=== PATIENT | female | born 1975 | race Two or more races ===

== ENCOUNTER 2020-07-05 02:40 | Emergency (ER) | payer OTHER, SELFPAY ==
[2020-07-05 02:55] VITALS: BP 143/92; PULSE 110; RESP 16; TEMP 36.6; O2SAT 99; BMI 46.9
--- NOTE | 2020-07-05 03:38 | ED.ABDPAIN ---
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 this morning and the pain is sharp and radiates towards the front with associated urinary frequency but she denies any associated fevers, chills, nausea, vomiting, diarrhea. Her LMP was 07/02. Related Data Allergies Allergy/AdvReac Type Severity Reaction Status Date / Time aspirin Allergy Mild SWELLING Verified 07/05/20 04:11 aspirin Allergy Unknown swelling Uncoded 12/17/19 00:00 cherries Allergy Unknown itching Uncoded 12/17/19 00:00 Review of Systems Review of Systems Pertinent positives and negatives as stated in HPI and 10 point review systems is otherwise negative. Physical Exam Vital Signs: Vital Signs: Vital Signs Temp Pulse Resp BP Pulse Ox 07/05/20 02:55 97.8 F 110 H 16 143/92 H 99 Body Mass Index 46.9 VITAL SIGNS: Reviewed. GENERAL: Well developed, well nourished, in moderate distress and is rocking back and forth in discomfort. HEAD: Normocephalic/atraumatic, EYES: PERRLA, EOMI intact without pain, no nystagmus/pallor/icterus noted EARS: Ext canals without abnormality, TMs non-bulging and non-erythematous NOSE: Nares patent bilateral OROPHARYNX: no oral lesions noted, posterior pharynx clear and non-erythematous without noted tonsillar enlargement/erythema/exudates NECK: Supple, no adenopathy LUNGS: Normal breath sounds. No adventitious sounds or accessory muscle use. SpO2<99> CARDIOVASCULAR: Regular rate and rhythm without noted murmurs, no JVD or lower extremity edema. ABDOMEN: Soft, non-tender, non-distended with bowel sounds. No rigidity. No guarding. No palpable masses or hernias noted MUSCULOSKELETAL: No tenderness, deformities, or effusions noted on gross inspection. EXTREMITIES: No cyanosis, clubbing or edema. SKIN: Inspection of the skin reveals no rashes, ulcerations, jaundice, pallor, or petechiae. NEUROLOGIC: Alert and oriented x 4. Strength and sensation to light touch were grossly intact x 4. Course Course Course Narrative: this is a 44-year-old female with history and clinical presentation suggestive of possible renal colic, UTI and less likely ectopic or pyelonephritis or diverticulitis. Will obtain labs, urinalysis, urine and provide combination analgesics for pain control. On review of all investigations there is no evidence of acute infection or anemia and although there is noted transaminemia on the chemistries this is felt be due in part to fatty liver and the presence of nonobstructing renal calculi as demonstrated on CT scan. Urine test is negative. MDM - Abdominal Pain Lab Data Result diagrams: 07/05/20 04:08 07/05/20 04:08 Labs: Lab Results 07/05/20 07/05/20 07/05/20 Range/Units 04:08 04:08 04:08 WBC 10.1 (4.8-10.8) X10*3/uL RBC 5.16 (4.20-5.50) X10*6/uL Hgb 15.3 (12.0-16.0) g/dl Hct 46.6 (37-47) % MCV 90.3 (80-98) fL MCH 29.7 (27.0-33.0) pg MCHC 32.8 (31.0-35.0) g/dl RDW 12.7 (11.0-16.0) % Plt Count 295 (160-400) X10*3/uL MPV 9.6 (9.4-12.3) fL Immature Gran % (Auto) 0.5 H (0.0-0.4) % Neut % (Auto) 66.0 (45-73) % Lymph % (Auto) 24.7 (20-40) % Reynolds % (Auto) 7.2 (2-11) % Eos % (Auto) 1.2 (0-4) % Baso % (Auto) 0.4 (0-2) % Lymph # (Auto) 2.5 (1.2-4.9) X10*3/uL Reynolds # (Auto) 0.7 (0.1-1.2) X10*3/uL Eos # (Auto) 0.1 (0.0-0.4) X10*3/uL Baso # (Auto) 0.0 (0.0-0.2) X10*3/uL Abs Immat Gran (auto) 0.05 H (0.00-0.03) X10*3/uL Absolute Neuts (auto) 6.7 (2.0-8.3) X10*3/uL Absolute Nucleated RBC 0.000 (0.0-0.012) X10*3/uL Nucleated RBC % (auto) 0.0 (0.0-0.2) /100WBC Sodium 141 (135-145) mmol/L Potassium 4.3 (3.3-5.1) mmol/l Chloride 105 (96-108) mmol/L Carbon Dioxide 25 (22-29) mmol/L Anion Gap 15 (12-20) BUN 13 (9-16) mg/dL Creatinine 0.87 (0.5-1.4) mg/dL Estim Creat Clear Calc 105.7 Estimated GFR > 60 Random Glucose 120 H (60-115) mg/dL Calcium 9.0 (8.4-10.2) mg/dL Total Bilirubin 0.4 (0.0-1.0) mg/dL AST 45 H (5-31) U/L ALT 75 H (0-31) U/L Alkaline Phosphatase 118 H (39-117) U/L Total Protein 7.2 (6.5-8.0) g/dL Albumin 3.9 (3.5-5.0) g/dL Urine Color YELLOW Urine Appearance HAZY Urine pH 6.0 (5.0-8.0) Ur Specific [place] 1.025 (1.005-1.025) Urine Protein NEG (NEG-TRACE) MG/DL Urine Glucose (UA) NEG (NEG) MG/DL Urine Ketones NEG (NEG) MG/DL Urine Blood 2+ H (NEG) Urine Nitrite NEG (NEG) Ur Leukocyte Esterase NEG (NEG) Urine RBC 5-9 H (0) /HPF Urine WBC 1-4 (0-4) /HPF Ur Squamous Epith Cells 1+ /LPF Urine Bacteria 1+ /LPF Urine Mucus 2+ /LPF Urine Test NEGATIVE (NEGATIVE) Discharge Plan Discharge Clinical Impression: Renal colic Patient Disposition: Home, Self-Care Instructions: Renal Colic (ED) Additional Instructions: 1. Aumente la hidrataci?n oral con agua y evite las bebidas carbonatadas y con cafe?na. 2. Tylenol 1000 mg, por v?a oral, cada 6 horas seg?n sea necesario para controlar el dolor. No exceda los 4000 mg en 24 horas. Si esto no ayuda con clay dolor cuando se repite, regrese al departamento de emergencias para dary evaluaci?n adicional. 3. Valentino un seguimiento con clay proveedor de atenci?n primaria el lunes. El paciente y / o la daniel reconocen shelley comprendido los resultados (seg?n corresponda), el diagn?stico, el plan de tratamiento, la necesidad de seguimiento y los s?ntomas que deber?an impulsar el regreso a la stephanie de emergencias. Referrals: Milly Chambers MD [Primary Care Provider] - 2 days (Further evaluation management for bilateral non-obstructing renal calculi) Print Language: Chinese [facility] Past Medical History Source: nursing notes reviewed Medical History Ectopic Kidney stone Social History Social History Advance Directives: No Advance Directives Information Provided: Yes
[2020-07-05] MEDS: diphenhydrAMINE HCL 50 MG/ML VIAL 25 MG IVPUSH (04:19)
[2020-07-05] MEDS: 0.9 % Sodium Chloride 1,000 ML 1000 ML IV (04:19)
[2020-07-05] MEDS: Acetaminophen 325 MG TABLET 975 MG PO (04:19)
[2020-07-05 04:20] LABS: Basophils Percent Auto 0.4 % (0-2); Eosinophils Absolute Auto 0.1 X10*3/uL (0.0-0.4); Eosinophils Percent Auto 1.2 % (0-4); Hematocrit 46.6 % (37-47); Hemoglobin 15.3 g/dl (12.0-16.0); Imm Gran Abs Auto 0.05 X10*3/uL (0.00-0.03); Imm Gran Pct Auto 0.5 % (0.0-0.4); Lymphocytes Absolute Auto 2.5 X10*3/uL (1.2-4.9); Lymphocytes Percent Auto 24.7 % (20-40); MANUAL DIFF FLAG NO; Mean Corpuscular HGB Conc 32.8 g/dl (31.0-35.0); Mean Corpuscular Hemoglobin 29.7 pg (27.0-33.0); Mean Corpuscular Volume 90.3 fL (80-98); Mean Platelet Volume 9.6 fL (9.4-12.3); Monocytes Absolute Auto 0.7 X10*3/uL (0.1-1.2); Monocytes Percent Auto 7.2 % (2-11); Neutrophils Absolute Auto 6.7 X10*3/uL (2.0-8.3); Platelet Count 295 X10*3/uL (160-400); Red Blood Count 5.16 X10*6/uL (4.20-5.50); Red Cell Distribution Width 12.7 % (11.0-16.0); White Blood Count 10.1 X10*3/uL (4.8-10.8)
[2020-07-05 04:21] LABS: Glucose Urine UA NEG (NEG); Leukocyte Esterase Urine NEG (NEG); Nitrite Urine NEG (NEG); Specific Gravity - Urine 1.025 (1.005-1.025); Urine Blood 2+ (NEG); Urine Ketones NEG (NEG); Urine Protein NEG (NEG-TRACE)
[2020-07-05 04:23] LABS: Appearance Urine HAZY; Color Urine YELLOW
[2020-07-05 04:26] LABS: UPreg QC Valid YES; Urine Pregnancy NEGATIVE (NEGATIVE)
[2020-07-05 04:31] LABS: Bacteria Urine 1+ /LPF; Mucus Urine 2+ /LPF; Squamous Epithelial Cell Urine 1+ /LPF
--- NOTE | 2020-07-05 04:31 | CT_ITS ---
EXAMINATION: CT ABDOMEN AND PELVIS WITHOUT CONTRAST CLINICAL INFORMATION: Left flank pain COMPARISON: 05/27/2020 TECHNIQUE: Multidetector volumetric imaging was performed from the superior aspect of the liver through the pubic symphysis. Sagittal and coronal reformatted images were obtained on the technologist's workstation. This CT examination was performed using dose optimization techniques as appropriate, variously including the following: *Automated exposure control *Adjustment of mA and/or kV according to patient size (this includes techniques or standardized protocols for targeted exams where dose is matched to indication/reason for exam; i.e. extremities or head) *Use of iterative reconstruction technique DLP: 1136 mGy-cm FINDINGS: LUNG BASES: The visualized lung bases are unremarkable. LIVER, GALLBLADDER, AND BILIARY TREE: The liver is normal in size, shape, and attenuation. No focal hepatic lesion or biliary ductal dilatation is present. Cholecystectomy. PANCREAS: Unremarkable. SPLEEN: Unremarkable. ADRENAL GLANDS: Unremarkable. KIDNEYS AND URETERS: The kidneys are normal in size, shape, and attenuation. There is no hydronephrosis or hydroureter. Bilateral tiny renal calculi are present. On the left there are at least 4 calculi measuring up to 0.2 cm, 15 cm from the posterior axillary line. On the right there are 2 lower pole 0.2 cm calculi 16 cm from the posterior axillary line. BLADDER: Unremarkable. GASTROINTESTINAL TRACT: Lap band in place. The stomach is otherwise unremarkable. Normal caliber small bowel. No obstruction. Normal appendix. No colonic wall thickening or inflammatory change. No free air or free fluid. ABDOMINAL WALL: No significant hernia is appreciated. LYMPH NODES: Normal. VASCULAR: Unremarkable. PELVIC VISCERA: Anteverted uterus. There is abnormal high attenuation in the region of the cervix and lower uterine segment expanding the endometrium. There is fluid filling the remainder of the endometrial canal measuring up to 1.7 cm. The fluid expansion of the endometrial canal is unchanged from prior, although the abnormality in the region of the cervix is now better visualized. There is a left adnexal follicle/cyst measuring 3 cm. This is similar to prior. OSSEOUS STRUCTURES: No acute or suspicious osseous abnormality. CT/CT abdomen pelvis wo con IMPRESSION: 1. Abnormal high attenuation in the uterus at the level of the cervix and lower uterine segment is nonspecific. This could represent blood products, although endocervical mass cannot be excluded. Persistent expansion of fluid within the endometrial canal. This can be further evaluated with pelvic ultrasound. 2. Multiple nonobstructing small bilateral renal calculi.
[2020-07-05 04:50] LABS: Alanine Aminotransferase 75 U/L (0-31); Albumin Level 3.9 g/dL (3.5-5.0); Alkaline Phosphatase 118 U/L (39-117); Anion Gap 15 (12-20); Aspartate Amino Transferase 45 U/L (5-31); Bilirubin Total 0.4 mg/dL (0.0-1.0); Blood Urea Nitrogen 13 mg/dL (9-16); Carbon Dioxide 25 mmol/L (22-29); Chloride 105 mmol/L (96-108); Creatinine Clr Calc Pharmacy 105.7; Estimated Glomerular Filt Rate > 60; Glucose Random 120 mg/dL (60-115); Potassium 4.3 mmol/l (3.3-5.1); Sodium 141 mmol/L (135-145); Total Protein 7.2 g/dL (6.5-8.0)
[2020-07-05 06:17] VITALS: BP 111/68; PULSE 88; RESP 18; TEMP 36.7; O2SAT 98
== END 2020-07-05 06:36 | disposition home or self-care (01) ==
PROVIDERS: Emergency Provider Student in an Organized Health Care Education/Training Program; PCP Internal Medicine
DX: N23 Unspecified renal colic (principal)
CPT/HCPCS: 36415; 74176; 80053; 81001; 81025; 85025; 96361; 96374; 99284; J1200

== ENCOUNTER 2020-07-13 10:50 | Outpatient (REF) | payer OTHER, SELFPAY ==
[2020-07-13 13:26] LABS: Estimated Average Glucose 120 mg/dL; Hemoglobin A1c % 5.8 %
[2020-07-14 23:11] LABS: DHEA Sulfate 84 mcg/dL (19-231)
[2020-07-15 04:32] LABS: Follicle Stimulating Hormone 10.5 mIU/mL; Lutenizing Hormone 4.2 mIU/mL; Prolactin 6.3 ng/mL
[2020-07-20 19:09] LABS: Testosterone, Free 2.8 pg/mL (0.1-6.4); Testosterone, Total 18 ng/dL (2-45)
== END 2020-07-13 10:51 | disposition home or self-care (01) ==
LOC: HO.LAB 10:50
PROVIDERS: PCP Internal Medicine; Visit Provider Advanced Practice Midwife
DX: Z01.419 Encounter for gynecological examination (general) (routine) without abnormal findings (principal); N93.9 Abnormal uterine and vaginal bleeding, unspecified
CPT/HCPCS: 82627; 83001; 83002; 83036; 83498; 84146; 84402; 84403; 84443

== ENCOUNTER 2020-07-24 07:18 | Outpatient (REF) | payer OTHER, SELFPAY | END 2020-07-24 07:19 | disposition home or self-care (01) | LOC: HO.LAB 07:18 | PROVIDERS: Visit Provider Internal Medicine | DX: Z20.828 Contact with and (suspected) exposure to other viral communicable diseases (principal) | CPT/HCPCS: C9803; U0003 ==

== ENCOUNTER 2020-07-27 10:51 | Outpatient (REF) | payer OTHER, SELFPAY ==
--- NOTE | 2020-07-27 10:53 | US_ITS ---
EXAMINATION: PELVIC ULTRASOUND CLINICAL INFORMATION: Abnormal uterine bleeding. The right ovary has been removed. COMPARISON: Previous CT of the abdomen and pelvis 07/05/2020 pelvic ultrasounds most recent September 2016 TECHNIQUE: Transabdominal and transvaginal pelvic ultrasound was performed. Transvaginal exam was performed for better visualization of the uterus and left ovary. FINDINGS: The uterus is anteverted and retroflexed and measures 8.5 x 6 x 6.1 cm in dimension. Uterine echotexture is heterogeneous. A focal uterine lesion is not appreciated. The endometrium is thickened measuring 1.9 cm. The endometrium is hyperechoic and homogeneous appearing. There are nabothian cysts in the cervix. The right ovary is surgically absent. The left ovary is normal-appearing and measures 3.4 x 2.5 x 2.3 cm, volume 10.2 mL. No adnexal mass is seen. There is no fluid in the pelvis. US/US pelvic complete IMPRESSION: Abnormally thickened endometrium measuring 1.9 cm. Normal-appearing left ovary. Surgically absent right ovary.
--- NOTE | 2020-07-27 10:53 | US_ITS ---
EXAMINATION: PELVIC ULTRASOUND CLINICAL INFORMATION: Abnormal uterine bleeding. The right ovary has been removed. COMPARISON: Previous CT of the abdomen and pelvis 07/05/2020 pelvic ultrasounds most recent September 2016 TECHNIQUE: Transabdominal and transvaginal pelvic ultrasound was performed. Transvaginal exam was performed for better visualization of the uterus and left ovary. FINDINGS: The uterus is anteverted and retroflexed and measures 8.5 x 6 x 6.1 cm in dimension. Uterine echotexture is heterogeneous. A focal uterine lesion is not appreciated. The endometrium is thickened measuring 1.9 cm. The endometrium is hyperechoic and homogeneous appearing. There are nabothian cysts in the cervix. The right ovary is surgically absent. The left ovary is normal-appearing and measures 3.4 x 2.5 x 2.3 cm, volume 10.2 mL. No adnexal mass is seen. There is no fluid in the pelvis. US/US transvaginal IMPRESSION: Abnormally thickened endometrium measuring 1.9 cm. Normal-appearing left ovary. Surgically absent right ovary.
== END 2020-07-27 10:52 | disposition home or self-care (01) ==
LOC: HO.US 10:51
PROVIDERS: Visit Provider Advanced Practice Midwife
DX: N93.9 Abnormal uterine and vaginal bleeding, unspecified (principal)
CPT/HCPCS: 76830; 76856

== ENCOUNTER → 2020-08-03 11:00 | Outpatient (BNVA) | payer OTHER, SELFPAY | PROVIDERS: PCP Internal Medicine; Visit Provider Advanced Practice Midwife | DX: Z76.89 Persons encountering health services in other specified circumstances (principal) ==

== ENCOUNTER 2020-08-14 09:42 | Outpatient (REF) | payer OTHER, SELFPAY | END 2020-08-14 09:43 | disposition home or self-care (01) | LOC: HO.LAB 09:42 | PROVIDERS: Visit Provider Internal Medicine | DX: Z20.828 Contact with and (suspected) exposure to other viral communicable diseases (principal) | CPT/HCPCS: C9803; U0003 ==

== ENCOUNTER → 2020-08-17 10:01 | Outpatient (BNVA) | payer OTHER, SELFPAY | PROVIDERS: Visit Provider Advanced Practice Midwife | DX: Z76.89 Persons encountering health services in other specified circumstances (principal) ==

== ENCOUNTER → 2020-08-18 11:10 | Outpatient (BNVA) | payer OTHER, SELFPAY | PROVIDERS: PCP Internal Medicine; Visit Provider Urology | DX: N39.0 Urinary tract infection, site not specified (principal); A49.9 Bacterial infection, unspecified | CPT/HCPCS: 81002; 99212 ==

== ENCOUNTER 2020-08-25 11:02 | Outpatient (REF) | payer OTHER, SELFPAY ==
--- NOTE | 2020-08-25 11:05 | MM_ITS ---
EXAMINATION: MM SCREENING DIGITAL BREAST TOMOSYNTHESIS, BILATERAL CLINICAL INFORMATION: Screening. Asymptomatic. The lifetime risk of breast cancer based on the Tyrer-Cuzick Model is 10%. COMPARISON: Mammography: 06/27/2019, 01/25/2018 TECHNIQUE: Digital breast tomosynthesis is performed in both the craniocaudal and mediolateral oblique views along with computer-aided detection (CAD). Synthesized 2D images are generated from the tomosynthesis. FINDINGS: There are scattered areas of fibroglandular density (ACR BI-RADS breast composition Category b). Breast tissue composition borders on predominantly fatty. There are no significant changes from prior exams. There are no significant masses, abnormal calcifications, or other abnormalities. MM/MM tomosynthesis screening BI IMPRESSION: No mammographic evidence of malignancy. ASSESSMENT: BI-RADS 1: Negative RECOMMENDATION: Routine annual mammography screening. This patient's information was entered into a reminder system with a target due date for their next mammogram.
== END 2020-08-25 11:03 | disposition home or self-care (01) ==
LOC: HO.MAMMO 11:02
PROVIDERS: Visit Provider Internal Medicine
DX: Z12.31 Encounter for screening mammogram for malignant neoplasm of breast (principal)
CPT/HCPCS: 77063; 77067

== ENCOUNTER 2020-08-25 12:20 | Outpatient (REF) | payer OTHER, SELFPAY | END 2020-08-25 12:21 | disposition home or self-care (01) | LOC: HO.LAB 12:20 | PROVIDERS: PCP Internal Medicine; Visit Provider Internal Medicine | DX: Z20.828 Contact with and (suspected) exposure to other viral communicable diseases (principal) | CPT/HCPCS: C9803; U0003 ==

== ENCOUNTER 2020-08-31 11:35 | Emergency (ER) | payer OTHER, SELFPAY ==
[2020-08-31 12:17] VITALS: BP 111/76; PULSE 89; RESP 16; TEMP 36.9; O2SAT 98; BMI 52.4
--- NOTE | 2020-08-31 12:35 | ED.FEMALEGU ---
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 The patient tells me that for the last 4 months she has had irregular and prolonged vaginal bleeding. Prior to this she had normal menses. She has had bleeding since August 13. She is using about 2 pads per day. She has no associated pain. Occasionally she has blood clots noted. She spoke to her OBGYN and has an appointment 09 02 for an endometrial biopsy and evaluation. She tells me she had this additionally August 18 but however due to the heavy bleeding they rescheduled it till later. No dizziness, weakness. No nausea or vomiting. No abdominal pain. Of note, patient had an ultrasound on July 27 which showed an abnormally thickened endometrium. MD elicited complaint: vaginal bleeding Onset (ago): week(s) Severity: mild Female Urogenital Radiation: Non-Radiating Vaginal discharge: none Vaginal bleeding: moderate, dark red and clots Exacerbating factors: none Relieving factors: none Associated symptoms: denies other symptoms Treatment prior to arrival: none Related Data Home Medications Medication Instructions Recorded Confirmed ibuprofen 600 mg tablet mg PO 08/18/20 mirtazapine 15 mg tablet 15 mg PO BEDTIME 08/18/20 omeprazole 20 mg capsule,delayed 20 mg PO DAILY 08/18/20 release trazodone 50 mg tablet 50 mg PO BEDTIME 08/18/20 Previous Rx's Medication Instructions Recorded ciprofloxacin HCl 500 mg tablet 500 mg PO BID 3 Days #6 tab 08/18/20 pyridoxine (vitamin B6) 100 mg 100 mg PO DAILY #90 tab 08/20/20 tablet Allergies Allergy/AdvReac Type Severity Reaction Status Date / Time aspirin Allergy Mild SWELLING Verified 08/10/20 12:05 aspirin Allergy Unknown swelling Uncoded 08/10/20 12:05 cherries Allergy Unknown itching Uncoded 08/10/20 12:05 Review of Systems Review of Systems: Yes all other systems are reviewed and are negative Constitutional: Constitutional: Reports no additional constitutional complaints, Denies body ache(s), Denies chills, Denies fever(s), Denies headache(s) and Denies weakness Eyes: Eyes: Reports no additional eye complaints and Denies change in vision ENT: Reports system reviewed and no additional complaints, except as documented, Denies dizziness, Denies headache(s), Denies nasal congestion, Denies nasal discharge and Denies neck pain Cardiovascular: Cardiovascular: Reports no additional cardiovascular complaints, Denies chest pain, Denies leg edema and Denies dyspnea Respiratory: Respiratory: Reports no additional respiratory complaints, Denies cough and Denies dyspnea Gastrointestinal: Gastrointestinal: Reports no additional gastrointestinal complaints, Denies abdominal pain, Denies diarrhea, Denies nausea and Denies vomiting Genitourinary: Genitourinary: Reports no additional female genitourinary complaints, Reports abnormal vaginal bleeding, Denies hematuria, Denies dysuria, Denies pelvic pain, Denies flank pain, Denies urinary incontinence and Denies vaginal discharge Musculoskeletal: Musculoskeletal: Reports no additional musculoskeletal complaints, Denies back pain, Denies arthralgias, Denies joint swelling, Denies neck pain, Denies numbness and Denies tingling Integumentary/Breasts: Skin/Breast: Reports system reviewed and no additional complaints, except as docu and Denies rash Neurologic: Reports system reviewed and no additional complaints, except as documented, Denies Abnormal speech present, Denies dizziness, Denies headache(s), Denies numbness, Denies tingling and Denies weakness PMFSH Past Medical History Attestation statement: The following information was validated with the patient. Source: nursing notes reviewed Medical History Abnormal uterine bleeding (AUB) Ectopic Insomnia Kidney stone Pure hypercholesterolemia Thickened endometrium Surgical History Hx of section Hx of cholecystectomy Hx of laparoscopic gastric banding Family History Family History Mother Osteoporosis Glaucoma Migraine Ovarian cancer Uterine cancer Sister Uterine cancer Maternal Grandfather Diabetes mellitus Paternal Grandmother Diabetes mellitus HTN (hypertension) Maternal Uncle Throat cancer Colon cancer Social History Social History Alcohol intake: never Smoking Status: Former smoker Use of substances other than those prescribed or required for medical reasons: No Advance Directives: No Advance Directives Information Provided: Yes Gender identity: female Physical Exam Vital Signs: Vital Signs: Last Vital Signs Temp 98.5 F 08/31/20 12:17 Pulse 89 08/31/20 12:17 Resp 16 08/31/20 12:17 BP 111/76 08/31/20 12:17 Pulse Ox 98 08/31/20 12:17 Body Mass Index 52.4 Const: General: cooperative, healthy appearing, comfortable and no acute distress Orientation/consciousness: patient oriented x3 Limitations: no limitations HENMT: Head: Yes normal to inspection Ears: hearing grossly normal bilaterally General nose exam: Normal external nose present Face and sinus: Yes normal facial exam Mouth: Normal oral and palatal mucosa present Throat: Yes posterior oropharynx normal Eyes: General: appearance normal, both eyes and all related structures Pupils: Equal, round and reactive pupils present Neck: Neck: Yes normal visual inspection Chest: Chest palpation & inspection: normal inspection of the chest Resp: Effort & Inspection: normal respiratory effort Auscultation: clear to auscultation bilaterally Cardio: Rate: regular rate Rhythm: regular rhythm Peripheral pulses: Peripheral pulses 2+ throughout GI: Inspection: Yes normal to inspection Palpation (GI): Soft to palpation and nontender Auscultation: normal bowel sounds : 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 Female Exam: normal external appearance Speculum Exam - Vagina: vaginal bleeding (small, NO clots) Speculum Exam - Cervix: normal appearance of the cervix Bimanual exam- vagina & uterus: normal bimanual exam Bimanual Exam- Adnexa, other: normal adnexae OB/external & speculum: vaginal bleeding (small, NO clots) Back/Spine/Pelvis: Thoracic/Lumbar Spine: thoracic and lumbar spine normal to inspection Skin: General skin exam: no rashes or lesions noted Neuro: General: patient oriented x3, no focal motor deficits and normal sensation to monofilament Cranial nerves: Yes Equal, round and reactive pupils present Cognition (Neuro): normal cognition Speech: No Abnormal speech present Gait exam (Neuro): Normal gait present Motor exam (neuro): 5/5 motor strength present throughout Extrem: General: Yes normal to inspection Course Course Course Narrative: 44-year-old female here with vaginal bleeding for the last 3 weeks. Patient has been seen by her OBGYN and has an upcoming appointment for repeat evaluation this Monday with an endometrial biopsy. Patient also she came today because she noticed the last few days she has had some clots but no increase in bleeding. Otherwise she feels well. Wall check labs, UA and urine , perform pelvic exam. 1405-Labs show stable hemoglobin, negative UA/. Pelvic exam shows small amounts of bleeding with no clots. Patient did not require a new pad while in the ED for >2 hrs. Can f/u with scheduled appointment in 2 days for OB evaluation and biopsy. Reviewed worrisome signs and symptoms and when to return to the emergency department. Comfortable discharge home. MDM - Female Genitourinary Medical Records Attestation: I reviewed the patient's medical records. Lab Data Attestation: I reviewed the patient's lab results. Result diagrams: 08/31/20 12:45 08/31/20 12:45 Labs: Lab Results 08/31/20 08/31/20 08/31/20 Range/Units 12:43 12:45 12:45 WBC 7.7 (4.8-10.8) X10*3/uL RBC 4.91 (4.20-5.50) X10*6/uL Hgb 14.6 (12.0-16.0) g/dl Hct 44.5 (37-47) % MCV 90.6 (80-98) fL MCH 29.7 (27.0-33.0) pg MCHC 32.8 (31.0-35.0) g/dl RDW 12.7 (11.0-16.0) % Plt Count 257 (160-400) X10*3/uL MPV 9.7 (9.4-12.3) fL Immature Gran % (Auto) 0.8 H (0.0-0.4) % Neut % (Auto) 59.5 (45-73) % Lymph % (Auto) 29.8 (20-40) % [place] % (Auto) 7.0 (2-11) % Eos % (Auto) 2.5 (0-4) % Baso % (Auto) 0.4 (0-2) % Lymph # (Auto) 2.3 (1.2-4.9) X10*3/uL [place] # (Auto) 0.5 (0.1-1.2) X10*3/uL Eos # (Auto) 0.2 (0.0-0.4) X10*3/uL Baso # (Auto) 0.0 (0.0-0.2) X10*3/uL Abs Immat Gran (auto) 0.06 H (0.00-0.03) X10*3/uL Absolute Neuts (auto) 4.6 (2.0-8.3) X10*3/uL Absolute Nucleated RBC 0.000 (0.0-0.012) X10*3/uL Nucleated RBC % (auto) 0.0 (0.0-0.2) /100WBC Sodium 137 (135-145) mmol/L Potassium 4.5 (3.3-5.1) mmol/l Chloride 106 (96-108) mmol/L Carbon Dioxide 24 (22-29) mmol/L Anion Gap 12 (12-20) BUN 10 (9-16) mg/dL Creatinine 0.79 (0.5-1.4) mg/dL Estim Creat Clear Calc 120.1 Estimated GFR > 60 Random Glucose 91 (60-115) mg/dL Calcium 8.8 (8.4-10.2) mg/dL Urine Color YELLOW Urine Appearance CLEAR Urine pH 5.5 (5.0-8.0) Ur Specific [place] >= 1.030 H (1.005-1.025) Urine Protein NEG (NEG-TRACE) MG/DL Urine Glucose (UA) NEG (NEG) MG/DL Urine Ketones NEG (NEG) MG/DL Urine Blood 3+ H (NEG) Urine Nitrite NEG (NEG) Ur Leukocyte Esterase NEG (NEG) Urine RBC 10-14 H (0) /HPF Urine WBC 0-2 (0-4) /HPF Ur Squamous Epith Cells 2+ /LPF Urine Bacteria TRACE /LPF Urine Mucus 1+ /LPF Urine Test NEGATIVE (NEGATIVE) Discharge Plan Discharge Clinical Impression: Abnormal uterine bleeding (AUB) Patient Disposition: Home, Self-Care Instructions: Menorrhagia (ED) Additional Instructions: Keep your appointment on Monday Return for heavy bleeding(using more than 1 pad in 1 hour) Prescriptions: No Action pyridoxine (vitamin B6) 100 mg tablet 100 mg PO DAILY Qty: 90 RF: 1 mirtazapine 15 mg tablet 15 mg PO BEDTIME RF: 0 trazodone 50 mg tablet 50 mg PO BEDTIME RF: 0 omeprazole 20 mg capsule,delayed release(DR/EC) 20 mg PO DAILY RF: 0 ibuprofen 600 mg tablet PO RF: 0 ciprofloxacin HCl 500 mg tablet 500 mg PO BID 3 Days Qty: 6 RF: 0 Referrals: Shabana Cabello MD [Physician] - 2 days Milly Chambers MD [Primary Care Provider] - 2 days Interventions: ED Discharge Assessment Last Done: 08/31/20 15:27 Discharge Date/Time: 08/31/20 15:27 Print Language: Macedonian
[2020-08-31 12:56] LABS: Basophils Percent Auto 0.4 % (0-2); Eosinophils Absolute Auto 0.2 X10*3/uL (0.0-0.4); Eosinophils Percent Auto 2.5 % (0-4); Hematocrit 44.5 % (37-47); Hemoglobin 14.6 g/dl (12.0-16.0); Imm Gran Abs Auto 0.06 X10*3/uL (0.00-0.03); Imm Gran Pct Auto 0.8 % (0.0-0.4); Lymphocytes Absolute Auto 2.3 X10*3/uL (1.2-4.9); Lymphocytes Percent Auto 29.8 % (20-40); MANUAL DIFF FLAG NO; Mean Corpuscular HGB Conc 32.8 g/dl (31.0-35.0); Mean Corpuscular Hemoglobin 29.7 pg (27.0-33.0); Mean Corpuscular Volume 90.6 fL (80-98); Mean Platelet Volume 9.7 fL (9.4-12.3); Monocytes Absolute Auto 0.5 X10*3/uL (0.1-1.2); Neutrophils Absolute Auto 4.6 X10*3/uL (2.0-8.3); Neutrophils Percent Auto 59.5 % (45-73); Platelet Count 257 X10*3/uL (160-400); Red Blood Count 4.91 X10*6/uL (4.20-5.50); Red Cell Distribution Width 12.7 % (11.0-16.0); White Blood Count 7.7 X10*3/uL (4.8-10.8)
[2020-08-31 12:58] LABS: Glucose Urine UA NEG (NEG); Leukocyte Esterase Urine NEG (NEG); Nitrite Urine NEG (NEG); PH 5.5 (5.0-8.0); Specific Gravity - Urine >= 1.030 (1.005-1.025); Urine Blood 3+ (NEG); Urine Ketones NEG (NEG); Urine Protein NEG (NEG-TRACE)
[2020-08-31 13:16] LABS: Appearance Urine CLEAR; Color Urine YELLOW
[2020-08-31 13:17] LABS: Urine Pregnancy NEGATIVE (NEGATIVE)
[2020-08-31 13:18] LABS: UPreg QC Valid YES
[2020-08-31 13:22] LABS: Bacteria Urine TRACE /LPF; Mucus Urine 1+ /LPF; Squamous Epithelial Cell Urine 2+ /LPF; WBC Urine 0-2 /HPF (0-4)
[2020-08-31 13:23] LABS: Anion Gap 12 (12-20); Blood Urea Nitrogen 10 mg/dL (9-16); Calcium 8.8 mg/dL (8.4-10.2); Carbon Dioxide 24 mmol/L (22-29); Chloride 106 mmol/L (96-108); Creatinine Clr Calc Pharmacy 120.1; Estimated Glomerular Filt Rate > 60; Glucose Random 91 mg/dL (60-115); Potassium 4.5 mmol/l (3.3-5.1); Sodium 137 mmol/L (135-145)
== END 2020-08-31 15:27 | disposition home or self-care (01) ==
PROVIDERS: Nurse Practitioner Family; Emergency Provider Emergency Medicine Emergency Medical Services; PCP Internal Medicine
DX: N93.8 Other specified abnormal uterine and vaginal bleeding (principal); Z87.891 Personal history of nicotine dependence; Z80.49 Family history of malignant neoplasm of other genital organs; Z79.899 Other long term (current) drug therapy
CPT/HCPCS: 36415; 80048; 81001; 81003; 81025; 85025; 99283; 99284

== ENCOUNTER 2020-09-02 13:17 | Outpatient (REF) | payer OTHER, SELFPAY ==
[2020-09-03 10:17] LABS: BV Int Neg Control Negative (Negative); BV Int Pos Control Positive (Positive)
[2020-09-05 08:47] LABS: C. trachomatis RNA TMA NOT DETECTED (NOT DETECTED); N. gonorrhoeae RNA TMA NOT DETECTED (NOT DETECTED)
[2020-09-05 10:18] LABS: HPV mRNA E6/E7 rflx Not Detected (Not Detected)
== END 2020-09-02 13:18 | disposition home or self-care (01) ==
LOC: HO.LAB 13:17
PROVIDERS: PCP Internal Medicine; Visit Provider Advanced Practice Midwife
DX: Z12.4 Encounter for screening for malignant neoplasm of cervix (principal); N93.9 Abnormal uterine and vaginal bleeding, unspecified; N39.0 Urinary tract infection, site not specified; A49.9 Bacterial infection, unspecified
CPT/HCPCS: 58100; 81025; 87086; 87480; 87491; 87510; 87591; 87624; 87660; 88142; 88305

== ENCOUNTER → 2020-09-14 15:24 | Outpatient (BNVA) | payer OTHER, SELFPAY | PROVIDERS: PCP Internal Medicine; Visit Provider Advanced Practice Midwife | DX: Z76.89 Persons encountering health services in other specified circumstances (principal) ==

== ENCOUNTER 2020-09-22 13:59 | Outpatient (REF) | payer OTHER, SELFPAY ==
[2020-09-24 05:32] LABS: C. trachomatis RNA TMA NOT DETECTED (NOT DETECTED); N. gonorrhoeae RNA TMA NOT DETECTED (NOT DETECTED)
== END 2020-09-22 14:00 | disposition home or self-care (01) ==
LOC: HO.LAB 13:59
PROVIDERS: PCP Internal Medicine; Visit Provider Obstetrics & Gynecology
DX: Z30.430 Encounter for insertion of intrauterine contraceptive device (principal); R31.9 Hematuria, unspecified; R93.89 Abnormal findings on diagnostic imaging of other specified body structures
CPT/HCPCS: 36415; 58300; 87491; 87591

== ENCOUNTER 2020-09-24 15:59 | Outpatient (REF) | payer OTHER, SELFPAY ==
[2020-09-24 18:26] LABS: MANUAL DIFF FLAG NO
[2020-09-24 18:32] LABS: Basophils Percent Auto 0.4 % (0-2); Eosinophils Absolute Auto 0.1 X10*3/uL (0.0-0.4); Eosinophils Percent Auto 1.5 % (0-4); Hematocrit 38.7 % (37-47); Hemoglobin 12.7 g/dl (12.0-16.0); Imm Gran Abs Auto 0.05 X10*3/uL (0.00-0.03); Imm Gran Pct Auto 0.5 % (0.0-0.4); Lymphocytes Absolute Auto 2.2 X10*3/uL (1.2-4.9); Lymphocytes Percent Auto 23.5 % (20-40); Mean Corpuscular HGB Conc 32.8 g/dl (31.0-35.0); Mean Corpuscular Volume 91.5 fL (80-98); Mean Platelet Volume 10.4 fL (9.4-12.3); Monocytes Absolute Auto 0.6 X10*3/uL (0.1-1.2); Monocytes Percent Auto 6.8 % (2-11); Neutrophils Absolute Auto 6.3 X10*3/uL (2.0-8.3); Neutrophils Percent Auto 67.3 % (45-73); Platelet Count 288 X10*3/uL (160-400); Red Blood Count 4.23 X10*6/uL (4.20-5.50); White Blood Count 9.3 X10*3/uL (4.8-10.8)
[2020-09-24 19:04] LABS: Iron 67 mcg/dL (30-160); Percent Iron Saturation 21 % (15-50); Total Iron Binding Capacity 318 mcg/dL (228-428); Unsaturated Iron Binding 251 ug/dL
[2020-09-26 13:26] LABS: C. trachomatis RNA TMA NOT DETECTED (NOT DETECTED); N. gonorrhoeae RNA TMA NOT DETECTED (NOT DETECTED)
== END 2020-09-24 16:00 | disposition home or self-care (01) ==
LOC: HO.LAB 15:59
PROVIDERS: PCP Internal Medicine; Visit Provider Internal Medicine
DX: N93.9 Abnormal uterine and vaginal bleeding, unspecified (principal); Z11.3 Encounter for screening for infections with a predominantly sexual mode of transmission
CPT/HCPCS: 36415; 83540; 85025; 87491; 87591

== ENCOUNTER → 2020-10-02 10:21 | Outpatient (BNVA) | payer OTHER, SELFPAY | PROVIDERS: PCP Internal Medicine; Visit Provider Urology | DX: R31.9 Hematuria, unspecified (principal) | CPT/HCPCS: 52000; 81002; 99212 ==

== ENCOUNTER → 2020-10-14 15:35 | Outpatient (BNVA) | payer OTHER, SELFPAY | PROVIDERS: Visit Provider Obstetrics & Gynecology ==

== ENCOUNTER 2020-11-24 09:36 | Outpatient (REF) | payer OTHER, SELFPAY ==
[2020-11-27 00:36] LABS: HPV mRNA E6/E7 rflx Not Detected (Not Detected)
== END 2020-11-24 09:37 | disposition home or self-care (01) ==
LOC: HO.LAB 09:36
PROVIDERS: Visit Provider Obstetrics & Gynecology
DX: R87.615 Unsatisfactory cytologic smear of cervix (principal); Z30.431 Encounter for routine checking of intrauterine contraceptive device; Z87.891 Personal history of nicotine dependence
CPT/HCPCS: 36415; 87624; 88142; 99212

== ENCOUNTER 2020-12-11 09:23 | Outpatient (REF) | payer OTHER, SELFPAY | END 2020-12-11 09:24 | disposition home or self-care (01) | LOC: HO.LAB 09:23 | PROVIDERS: Visit Provider Internal Medicine | DX: Z20.822 Contact with and (suspected) exposure to COVID-19 (principal) | CPT/HCPCS: C9803; U0003; U0005 ==

== ENCOUNTER 2020-12-20 19:02 | Emergency (ER) | payer OTHER, SELFPAY ==
[2020-12-20 19:28] VITALS: BP 131/90; PULSE 98; RESP 18; TEMP 36.3; O2SAT 95; BMI 50.5
--- NOTE | 2020-12-20 20:06 | ED.FEMALEGU ---
HPI - Female Genitourinary General Chief complaint: Urogenital-Female Stated complaint: side pain Time Seen by Provider: 12/20/20 19:57 Source: patient Mode of arrival: ambulatory Limitations: no limitations History of Present Illness HPI Narrative: 45-year-old female here with dysuria, foul odor to urine and right-sided back pain x2 days. No fevers, chills, nausea vomiting, vaginal discharge, diarrhea, constipation. Related Data Home Medications Medication Instructions Recorded Confirmed levonorgestrel 20 mcg/24 hours (6 0 device VAGINAL ONCE 10/02/20 yrs) 52 mg intrauterine device ibuprofen 400 mg tablet 400 mg PO Q8H 10/14/20 Previous Rx's Medication Instructions Recorded pyridoxine (vitamin B6) 100 mg 100 mg PO DAILY #90 tab 08/20/20 tablet tranexamic acid 650 mg tablet 1,300 mg PO TID #42 tab 10/14/20 ciprofloxacin HCl 500 mg PO BID #14 tab 12/20/20 phenazopyridine [Pyridium] 200 mg PO TID PRN #6 tab 12/20/20 Allergies Allergy/AdvReac Type Severity Reaction Status Date / Time aspirin Allergy Mild SWELLING Verified 11/24/20 10:05 cherries Allergy Unknown itching Uncoded 11/24/20 10:05 Review of Systems Review of Systems: Yes all other systems are reviewed and are negative Constitutional: Constitutional: Reports no additional constitutional complaints, Denies body ache(s), Denies chills, Denies fever(s), Denies headache(s) and Denies weakness Eyes: Eyes: Reports no additional eye complaints and Denies change in vision ENT: Reports system reviewed and no additional complaints, except as documented, Denies dizziness, Denies headache(s), Denies nasal congestion, Denies nasal discharge and Denies neck pain Cardiovascular: Cardiovascular: Reports no additional cardiovascular complaints, Denies chest pain, Denies leg edema and Denies dyspnea Respiratory: Respiratory: Reports no additional respiratory complaints, Denies cough and Denies dyspnea Gastrointestinal: Gastrointestinal: Reports no additional gastrointestinal complaints, Denies abdominal pain, Denies diarrhea, Denies nausea and Denies vomiting Genitourinary: Genitourinary: Reports no additional female genitourinary complaints, Denies urinary frequency, Denies difficulty voiding, Reports dysuria, Reports flank pain, Denies urinary incontinence, Denies urinary hesitancy, Denies urinary urgency and Denies vaginal discharge Comments: +foul odor to urine Musculoskeletal: Musculoskeletal: Reports no additional musculoskeletal complaints, Reports back pain, Denies arthralgias, Denies joint swelling, Denies neck pain, Denies numbness and Denies tingling Integumentary/Breasts: Skin/Breast: Reports system reviewed and no additional complaints, except as docu and Denies rash Neurologic: Reports system reviewed and no additional complaints, except as documented, Denies Abnormal speech present, Denies dizziness, Denies headache(s), Denies numbness, Denies tingling and Denies weakness [facility] Past Medical History Attestation statement: The following information was validated with the patient. Source: old records reviewed and nursing notes reviewed Medical History Abnormal uterine bleeding (AUB) Ectopic Hematuria Insomnia Kidney stone Pure hypercholesterolemia Thickened endometrium Surgical History Hx of section Hx of cholecystectomy Hx of laparoscopic gastric banding Family History Family History Mother Osteoporosis Glaucoma Migraine Ovarian cancer Uterine cancer Sister Uterine cancer Maternal Grandfather Diabetes mellitus Paternal Grandmother Diabetes mellitus HTN (hypertension) Maternal Uncle Throat cancer Colon cancer Social History Social History Alcohol intake: never Smoking Status: Former smoker Advance Directives: No Advance Directives Information Provided: No Gender identity: female Physical Exam Vital Signs: Vital Signs: Last Vital Signs Temp 97.4 F 12/20/20 19:28 Pulse 98 12/20/20 19:28 Resp 18 12/20/20 19:28 BP 131/90 H 12/20/20 19:28 Pulse Ox 95 12/20/20 19:28 Body Mass Index 50.5 Const: General: cooperative, healthy appearing, comfortable and no acute distress Orientation/consciousness: patient oriented x3 Limitations: no limitations HENMT: Head: Yes normal to inspection Ears: hearing grossly normal bilaterally General nose exam: Normal external nose present Face and sinus: Yes normal facial exam Mouth: Normal oral and palatal mucosa present Throat: Yes posterior oropharynx normal Eyes: General: appearance normal, both eyes and all related structures Pupils: Equal, round and reactive pupils present Neck: Neck: Yes normal visual inspection Chest: Chest palpation & inspection: normal inspection of the chest Resp: Effort & Inspection: normal respiratory effort Auscultation: clear to auscultation bilaterally Cardio: Rate: regular rate Rhythm: regular rhythm Peripheral pulses: Peripheral pulses 2+ throughout GI: Inspection: Yes normal to inspection Palpation (GI): Soft to palpation and nontender Auscultation: normal bowel sounds : General: Yes CVA tenderness (Mild right) Back/Spine/Pelvis: Back: CVA tenderness (Mild right) Thoracic/Lumbar Spine: thoracic and lumbar spine normal to inspection Skin: General skin exam: no rashes or lesions noted Neuro: General: patient oriented x3, no focal motor deficits and normal sensation to monofilament Cranial nerves: Yes Equal, round and reactive pupils present Cognition (Neuro): normal cognition Speech: No Abnormal speech present Gait exam (Neuro): Normal gait present Motor exam (neuro): 5/5 motor strength present throughout Extrem: General: Yes normal to inspection Course Course Course Narrative: 45-year-old female here with complaints of dysuria, foul odor to the urine and right flank pain x2 days. Mild CVA tenderness on the right side. No abdominal pain. Afebrile, well-appearing. Will need urine. 2049-UA consistent with UTI. There is some mild CVA tenderness on the right side and so could consider early pyelonephritis. No systemic signs or symptoms of infection such as reports of fevers or chills, tachycardia or fever. Will treat with course of antibiotics, Pyridium p.r.n. reviewed worrisome signs and symptoms and when to return to the emergency department. Comfortable discharge home. MDM - Female Genitourinary MDM Narrative Medical decision making narrative: Pyelonephritis, renal colic, UTI Medical Records Attestation: I reviewed the patient's medical records. Lab Data Attestation: I reviewed the patient's lab results. Labs: Lab Results 12/20/20 12/20/20 Range/Units 19:39 19:39 Urine Color YELLOW Urine Appearance CLEAR Urine pH 6.0 (5.0-8.0) Ur Specific [place] 1.025 (1.005-1.025) Urine Protein NEG (NEG-TRACE) MG/DL Urine Glucose (UA) NEG (NEG) MG/DL Urine Ketones 5 (NEG) MG/DL Urine Blood NEG (NEG) Urine Nitrite NEG (NEG) Ur Leukocyte Esterase TRACE H (NEG) Urine RBC 1-4 (0) /HPF Urine WBC 15-29 H (0-4) /HPF Ur Squamous Epith Cells 2+ /LPF Urine Bacteria 2+ /LPF Urine Test NEGATIVE (NEGATIVE) Discharge Plan Discharge Clinical Impression: UTI (urinary tract infection), bacterial, Pyelonephritis Patient Disposition: Home, Self-Care Instructions: Kidney Infection (ED) Additional Instructions: Increase fluids, rest Prescriptions: New ciprofloxacin HCl 500 mg tablet 500 mg PO BID Qty: 14 RF: 0 phenazopyridine [Pyridium] 200 mg tablet 200 mg PO TID PRN (Reason: pain) Qty: 6 RF: 0 No Action pyridoxine (vitamin B6) 100 mg tablet 100 mg PO DAILY Qty: 90 RF: 1 Mirena 20 mcg/24 hours (6 yrs) 52 mg intrauterine device 0 device vaginal ONCE RF: 0 ibuprofen 400 mg tablet 400 mg PO Q8H RF: 0 tranexamic acid 650 mg tablet 1,300 mg PO TID Qty: 42 RF: 0 Referrals: Milly Chambers MD [Primary Care Provider] - 2 days Print Language: Mexican
[2020-12-20 20:26] LABS: Glucose Urine UA NEG (NEG); Leukocyte Esterase Urine TRACE (NEG); Nitrite Urine NEG (NEG); Specific Gravity - Urine 1.025 (1.005-1.025); UACC Culture Trigger YES; Urine Blood NEG (NEG); Urine Ketones 5 MG/DL (NEG); Urine Protein NEG (NEG-TRACE)
[2020-12-20 20:29] LABS: Appearance Urine CLEAR; Color Urine YELLOW
[2020-12-20 20:31] LABS: UPreg QC Valid YES; Urine Pregnancy NEGATIVE (NEGATIVE)
[2020-12-20 20:43] LABS: Bacteria Urine 2+ /LPF; Squamous Epithelial Cell Urine 2+ /LPF
== END 2020-12-20 21:08 | disposition home or self-care (01) ==
PROVIDERS: Emergency Provider Internal Medicine; PCP Internal Medicine
DX: N39.0 Urinary tract infection, site not specified (principal); N10 Acute pyelonephritis; B96.89 Other specified bacterial agents as the cause of diseases classified elsewhere; Z87.442 Personal history of urinary calculi
CPT/HCPCS: 81001; 81003; 81025; 87086; 87088; 87186; 99283; 99284

== ENCOUNTER 2020-12-29 04:51 | Emergency (ER) | payer OTHER, SELFPAY ==
--- NOTE | ~2020-12-29 | XR_ITS ---
EXAMINATION: XR CHEST CLINICAL INFORMATION: Chest pain COMPARISON: 11/14/2019 TECHNIQUE: 2 views of the chest were obtained. FINDINGS: Cardiac leads overlie the chest. The lungs are well expanded. There is no focal consolidation, edema, or effusion. No pneumothorax. The cardiomediastinal silhouette is within normal limits. No acute osseous abnormality. XR/XR chest 2V IMPRESSION: Clear lungs.
--- NOTE | 2020-12-29 04:56 | ECG_ITS ---
Test Reason : CHES WALL PAIN Blood Pressure : / mmHG Vent. Rate : 084 BPM Atrial Rate : 084 BPM P-R Int : 196 ms QRS Dur : 080 ms QT Int : 392 ms P-R-T Axes : 043 -27 048 degrees QTc Int : 463 ms Normal sinus rhythm Cannot rule out Anterior infarct , age undetermined Abnormal ECG When compared with ECG of 08-JAN-2020 10:46, No significant change was found Referred By: Mary Clayton Electronically Signed By:MALLORIE RIVERO MD
[2020-12-29 05:07] VITALS: BP 126/68; PULSE 65; RESP 16; TEMP 36.8; O2SAT 99; BMI 50.5
[2020-12-29] MEDS: Ketorolac Tromethamine 15 MG/ML VIAL IM (05:17)
[2020-12-29] MEDS: Acetaminophen 325 MG TABLET 975 MG PO (05:18)
[2020-12-29] MEDS: Magnesium Hydrox/Alum Hydrox 30 ML ORAL.SUSP PO (05:18)
[2020-12-29] MEDS: Lidocaine HCl Viscous 2 % 15 ML SOLUTION 10 ML MUCOUS MEM (05:18)
[2020-12-29 05:35] LABS: Basophils Percent Auto 0.3 % (0-2); Eosinophils Absolute Auto 0.2 X10*3/uL (0.0-0.4); Eosinophils Percent Auto 1.9 % (0-4); Hemoglobin 13.1 g/dl (12.0-16.0); Imm Gran Abs Auto 0.04 X10*3/uL (0.00-0.03); Imm Gran Pct Auto 0.3 % (0.0-0.4); Lymphocytes Absolute Auto 3.7 X10*3/uL (1.2-4.9); Lymphocytes Percent Auto 31.6 % (20-40); MANUAL DIFF FLAG NO; Mean Corpuscular HGB Conc 31.2 g/dl (31.0-35.0); Mean Corpuscular Hemoglobin 26.5 pg (27.0-33.0); Mean Platelet Volume 9.4 fL (9.4-12.3); Monocytes Absolute Auto 0.7 X10*3/uL (0.1-1.2); Monocytes Percent Auto 6.1 % (2-11); Neutrophils Percent Auto 59.8 % (45-73); Platelet Count 320 X10*3/uL (160-400); Red Blood Count 4.94 X10*6/uL (4.20-5.50); Red Cell Distribution Width 13.9 % (11.0-16.0); White Blood Count 11.7 X10*3/uL (4.8-10.8)
[2020-12-29 05:59] LABS: Alanine Aminotransferase 45 U/L (0-31); Albumin Level 3.6 g/dL (3.5-5.0); Alkaline Phosphatase 118 U/L (39-117); Anion Gap 13 (12-20); Aspartate Amino Transferase 24 U/L (5-31); Bilirubin Total 0.2 mg/dL (0.0-1.0); Blood Urea Nitrogen 8 mg/dL (9-16); Calcium 9.1 mg/dL (8.4-10.2); Carbon Dioxide 25 mmol/L (22-29); Chloride 107 mmol/L (96-108); Creatinine Clr Calc Pharmacy 102.4; Estimated Glomerular Filt Rate > 60; Glucose Random 134 mg/dL (60-115); Lipase 36 U/L (8-78); Potassium 4.3 mmol/L (3.3-5.1); Sodium 141 mmol/L (135-145); Total Protein 6.7 g/dL (6.5-8.0)
[2020-12-29 06:02] LABS: Troponin-I High Sensitivity < 3.5 ng/L (<3.5-17.0)
--- NOTE | 2020-12-29 06:04 | ED.CHESTPAIN ---
HPI - Chest Pain General Chief Complaint: Chest Pain Stated Complaint: CHEST PAIN Time Seen by Provider: 12/29/20 04:56 Source: patient Mode of arrival: ambulatory History of Present Illness HPI narrative: 45-year-old female who presents with 2-3 days sharp, burning chest pain that is nonradiating and is worse with deep inspiration and has not been associated with any fevers, chills, shortness of breath, nausea/vomiting, abdominal pain, or urinary symptoms. Related Data Home Medications Medication Instructions Recorded Confirmed levonorgestrel 20 mcg/24 hours (6 0 device VAGINAL ONCE 10/02/20 yrs) 52 mg intrauterine device ibuprofen 400 mg tablet 400 mg PO Q8H 10/14/20 Previous Rx's Medication Instructions Recorded pyridoxine (vitamin B6) 100 mg 100 mg PO DAILY #90 tab 08/20/20 tablet tranexamic acid 650 mg tablet 1,300 mg PO TID #42 tab 10/14/20 ciprofloxacin HCl 500 mg PO BID #14 tab 12/20/20 phenazopyridine [Pyridium] 200 mg PO TID PRN #6 tab 12/20/20 omeprazole 40 mg PO DAILY 30 Days #30 cap 12/29/20 Allergies Allergy/AdvReac Type Severity Reaction Status Date / Time aspirin Allergy Mild SWELLING Verified 11/24/20 10:05 cherries Allergy Unknown itching Uncoded 11/24/20 10:05 Review of Systems Review of Systems: Pertinent positives and negatives as stated in HPI and 10 point review of systems is otherwise negative. PMFSH Past Medical History Source: nursing notes reviewed Medical History Abnormal uterine bleeding (AUB) Ectopic Hematuria Insomnia Kidney stone Pure hypercholesterolemia Thickened endometrium Surgical History Hx of section Hx of cholecystectomy Hx of laparoscopic gastric banding Family History Family History Mother Osteoporosis Glaucoma Migraine Ovarian cancer Uterine cancer Sister Uterine cancer Maternal Grandfather Diabetes mellitus Paternal Grandmother Diabetes mellitus HTN (hypertension) Maternal Uncle Throat cancer Colon cancer Social History Social History Alcohol intake: never Smoking Status: Former smoker Advance Directives: No Gender identity: female Physical Exam Vital Signs: Vital Signs: Last Vital Signs Temp 98.2 F 12/29/20 05:07 Pulse 65 12/29/20 05:07 Resp 16 12/29/20 05:07 BP 126/68 12/29/20 05:07 Pulse Ox 99 12/29/20 05:07 Body Mass Index 50.5 VITAL SIGNS: Reviewed. GENERAL: Well developed, well nourished, in no acute distress. HEAD: Normocephalic/atraumatic EYES: PERRLA, EOMI OROPHARYNX: no oral lesions noted, posterior pharynx clear NECK: Supple, no adenopathy LUNGS: Normal breath sounds. No adventitious sounds or accessory muscle use. SpO2<99> CARDIOVASCULAR: Regular rate and rhythm without noted murmurs ABDOMEN: Soft, non-tender, non-distended with bowel sounds, no CVA tenderness. NEUROLOGIC: Alert and oriented x 4. Course Course Course Narrative: 45-year-old female with history and clinical presentation consistent costochondritis, acid reflux, and doubt cardiopulmonary etiologies. On review of all investigations are no acute findings and on re-evaluation patient has had good symptom relief after receiving combination analgesics as well as GI cocktail. She will be discharged in stable condition with presumptive acid reflux. MDM - Chest Pain Lab Data Result diagrams: 12/29/20 05:29 12/29/20 05:29 Labs: Lab Results 12/29/20 12/29/20 12/29/20 Range/Units 05:29 05:29 05:29 WBC 11.7 H (4.8-10.8) X10*3/uL RBC 4.94 (4.20-5.50) X10*6/uL Hgb 13.1 (12.0-16.0) g/dl Hct 42.0 (37-47) % MCV 85.0 (80-98) fL MCH 26.5 L (27.0-33.0) pg MCHC 31.2 (31.0-35.0) g/dl RDW 13.9 (11.0-16.0) % Plt Count 320 (160-400) X10*3/uL MPV 9.4 (9.4-12.3) fL Immature Gran % (Auto) 0.3 (0.0-0.4) % Neut % (Auto) 59.8 (45-73) % Lymph % (Auto) 31.6 (20-40) % [place] % (Auto) 6.1 (2-11) % Eos % (Auto) 1.9 (0-4) % Baso % (Auto) 0.3 (0-2) % Lymph # (Auto) 3.7 (1.2-4.9) X10*3/uL [place] # (Auto) 0.7 (0.1-1.2) X10*3/uL Eos # (Auto) 0.2 (0.0-0.4) X10*3/uL Baso # (Auto) 0.0 (0.0-0.2) X10*3/uL Abs Immat Gran (auto) 0.04 H (0.00-0.03) X10*3/uL Absolute Neuts (auto) 7.0 (2.0-8.3) X10*3/uL Absolute Nucleated RBC 0.000 (0.0-0.012) X10*3/uL Nucleated RBC % (auto) 0.0 (0.0-0.2) /100WBC Sodium 141 (135-145) mmol/L Potassium 4.3 (3.3-5.1) mmol/L Chloride 107 (96-108) mmol/L Carbon Dioxide 25 (22-29) mmol/L Anion Gap 13 (12-20) BUN 8 L (9-16) mg/dL Creatinine 0.93 (0.5-1.4) mg/dL Estim Creat Clear Calc 102.4 Estimated GFR > 60 Random Glucose 134 H D (60-115) mg/dL Calcium 9.1 (8.4-10.2) mg/dL Total Bilirubin 0.2 (0.0-1.0) mg/dL AST 24 D (5-31) U/L ALT 45 H (0-31) U/L Alkaline Phosphatase 118 H (39-117) U/L Troponin I High Sens < 3.5 (<3.5-17.0) ng/L Total Protein 6.7 (6.5-8.0) g/dL Albumin 3.6 (3.5-5.0) g/dL Lipase 36 (8-78) U/L ECG Data ECG #1: Attestation: I personally reviewed and interpreted this ECG as follows: Prior ECG tracings: available for review (01/08/2020 no acute changes on comparison) Interpretation: Normal sinus rhythm, HR-84, no evidence of acute ischemia, ME/QRS/QTC are within normal limits. Discharge Plan Discharge Clinical Impression: Acid reflux, Atypical chest pain Patient Disposition: Home, Self-Care Instructions: Diet for Stomach Ulcers and Gastritis (ED), Gastroesophageal Reflux Disease (ED) Additional Instructions: 1. Valentino un seguimiento con clay proveedor de atenci?n primaria llamando al consultorio hoy mismo para dary reevaluaci?n de clay o?do melissa. Regrese al departamento de emergencias por cualquier empeoramiento richard de claude s?ntomas. Prescriptions: New omeprazole 40 mg capsule,delayed release(DR/EC) 40 mg PO DAILY 30 Days Qty: 30 RF: 0 No Action pyridoxine (vitamin B6) 100 mg tablet 100 mg PO DAILY Qty: 90 RF: 1 ciprofloxacin HCl 500 mg tablet 500 mg PO BID Qty: 14 RF: 0 phenazopyridine [Pyridium] 200 mg tablet 200 mg PO TID PRN (Reason: pain) Qty: 6 RF: 0 Mirena 20 mcg/24 hours (6 yrs) 52 mg intrauterine device 0 device vaginal ONCE RF: 0 ibuprofen 400 mg tablet 400 mg PO Q8H RF: 0 tranexamic acid 650 mg tablet 1,300 mg PO TID Qty: 42 RF: 0 Referrals: Milly Chambers MD [Primary Care Provider] - 2 days (Re-evaluation for suspected acid reflux and started on omeprazole.) Print Language: Albanian
== END 2020-12-29 06:50 | disposition home or self-care (01) ==
PROVIDERS: Emergency Provider Student in an Organized Health Care Education/Training Program; PCP Internal Medicine
DX: R07.89 Other chest pain (principal); K21.9 Gastro-esophageal reflux disease without esophagitis
CPT/HCPCS: 36415; 71046; 80053; 83690; 84484; 85025; 93005; 96372; 99283; 99284; J1885

== ENCOUNTER 2021-01-04 12:41 | Outpatient (REF) | payer OTHER, SELFPAY ==
[2021-01-04 13:55] LABS: COVID-19 Test Negative (Negative); IDNOW Serial# 55D5AD1C
== END 2021-01-04 12:42 | disposition home or self-care (01) ==
LOC: HO.LAB 12:41
PROVIDERS: Visit Provider Internal Medicine
DX: Z20.822 Contact with and (suspected) exposure to COVID-19 (principal)
CPT/HCPCS: 36415; 87635; C9803

== ENCOUNTER → 2021-01-21 09:27 | Outpatient (BNVA) | payer OTHER, SELFPAY | PROVIDERS: Referring Provider Internal Medicine; Visit Provider Surgery | DX: E66.01 Morbid (severe) obesity due to excess calories (principal); Z68.43 Body mass index [BMI] 50.0-59.9, adult | CPT/HCPCS: 99202 ==

== ENCOUNTER 2021-01-25 14:06 | Outpatient (REF) | payer OTHER, SELFPAY ==
--- NOTE | ~2021-01-25 | XR_ITS ---
EXAMINATION: XR CHEST CLINICAL INFORMATION: Shortness of breath COMPARISON: Previous chest x-rays most recent December 2020 TECHNIQUE: 2 views of the chest were obtained. FINDINGS: Cardiac and mediastinal contours are normal. The lungs are clear. There is no pleural effusion or pneumothorax bony structures are normal. There are postsurgical changes from gastric lap band. XR/XR chest 2V IMPRESSION: No evidence for acute disease in the chest.
--- NOTE | 2021-01-25 14:14 | ECG_ITS ---
Test Reason : SOB Blood Pressure : / mmHG Vent. Rate : 076 BPM Atrial Rate : 076 BPM P-R Int : 182 ms QRS Dur : 086 ms QT Int : 404 ms P-R-T Axes : 051 -20 055 degrees QTc Int : 454 ms Normal sinus rhythm Normal ECG When compared with ECG of 29-DEC-2020 05:00, No significant change was found Referred By: Marie Ramos Electronically Signed By:CHEYANNE CHONG
[2021-01-25 14:52] LABS: MANUAL DIFF FLAG NO
[2021-01-25 15:01] LABS: Basophils Percent Auto 0.4 % (0-2); Eosinophils Absolute Auto 0.2 X10*3/uL (0.0-0.4); Eosinophils Percent Auto 1.9 % (0-4); Hematocrit 41.8 % (37-47); Hemoglobin 12.9 g/dl (12.0-16.0); Imm Gran Abs Auto 0.06 X10*3/uL (0.00-0.03); Imm Gran Pct Auto 0.6 % (0.0-0.4); Lymphocytes Absolute Auto 2.5 X10*3/uL (1.2-4.9); Lymphocytes Percent Auto 26.3 % (20-40); Mean Corpuscular HGB Conc 30.9 g/dl (31.0-35.0); Mean Corpuscular Hemoglobin 25.4 pg (27.0-33.0); Mean Corpuscular Volume 82.4 fL (80-98); Mean Platelet Volume 9.9 fL (9.4-12.3); Monocytes Absolute Auto 0.5 X10*3/uL (0.1-1.2); Monocytes Percent Auto 5.4 % (2-11); Neutrophils Absolute Auto 6.1 X10*3/uL (2.0-8.3); Neutrophils Percent Auto 65.4 % (45-73); Platelet Count 325 X10*3/uL (160-400); Red Blood Count 5.07 X10*6/uL (4.20-5.50); Red Cell Distribution Width 14.6 % (11.0-16.0); White Blood Count 9.4 X10*3/uL (4.8-10.8)
[2021-01-25 15:03] LABS: Estimated Average Glucose 137 mg/dL; Hemoglobin A1c % 6.4 %
[2021-01-25 15:19] LABS: Alanine Aminotransferase 35 U/L (0-31); Albumin Level 3.6 g/dL (3.5-5.0); Alkaline Phosphatase 119 U/L (39-117); Anion Gap 12 (12-20); Aspartate Amino Transferase 26 U/L (5-31); Bilirubin Total 0.5 mg/dL (0.0-1.0); Blood Urea Nitrogen 11 mg/dL (9-16); C Reactive Protein 0.91 mg/dL (< or = 0.50); Calcium 9.1 mg/dL (8.4-10.2); Carbon Dioxide 24 mmol/L (22-29); Chloride 108 mmol/L (96-108); Cholesterol 252 mg/dL; Estimated Glomerular Filt Rate > 60; Glucose Fasting 105 mg/dL (60-99); HDL Cholesterol 37 mg/dL; Iron 32 mcg/dL (30-160); LDL Cholesterol Calculated 186 mg/dl; Percent Iron Saturation 9 % (15-50); Sodium 140 mmol/L (135-145); Total Iron Binding Capacity 370 mcg/dL (228-428); Total Protein 6.9 g/dL (6.5-8.0); Triglycerides 149 mg/dL; Unsaturated Iron Binding 338 ug/dL
[2021-01-25 15:39] LABS: Thyroid Stimulating Hormone 1.02 uIU/mL (0.32-4.0); Vitamin D 25-OH Total 14.7 ng/mL (>30)
[2021-01-25 15:43] LABS: Vitamin B12 445 pg/mL (200-900)
[2021-01-27 13:32] LABS: Calcium (PTHI) 9.3 mg/dL (8.6-10.2); PTHI 109 pg/mL (14-64)
[2021-01-28 19:02] LABS: Vitamin B1 <6 nmol/L (8-30)
[2021-01-28 19:52] LABS: Zinc 58 mcg/dL (60-130)
[2021-01-30 00:56] LABS: Vitamin A 32 mcg/dL (38-98)
== END 2021-01-25 14:07 | disposition home or self-care (01) ==
LOC: HO.XRAY 14:06
PROVIDERS: PCP Internal Medicine; Visit Provider Surgery
DX: Z01.818 Encounter for other preprocedural examination (principal); R06.02 Shortness of breath; E55.9 Vitamin D deficiency, unspecified; K91.2 Postsurgical malabsorption, not elsewhere classified; Z90.3 Acquired absence of stomach [part of]
CPT/HCPCS: 36415; 71046; 80053; 80061; 82306; 82607; 83036; 83540; 83970; 84425; 84443; 84590; 84630; 85025; 86140; 93005

== ENCOUNTER 2021-02-03 06:07 | Day surgery (SDC) | payer OTHER, SELFPAY ==
[2021-01-27 13:03] VITALS: BMI 49.9
--- NOTE | 2021-02-02 09:43 | HO.ANESPROP2 ---
Documented by User: Cat Steph 02/02/21 09:44 HPI - Anesthesia Eval Consult details Narrative: 45yo F for Upper Endoscopy PMFSH Active Problems Active Problems: All Active Problems (Updated 01/26/21 @ 12:45 by Marie Ramos MD) Well woman exam with routine gynecological exam (Acute) Morbid obesity with BMI of 45.0-49.9, adult (Acute) Prediabetes (Acute) UTI (urinary tract infection), bacterial (Acute) Preoperative examination (Acute) Shortness of breath (Acute) BMI 50.0-59.9, adult (Acute) Morbid obesity due to excess calories (Acute) Vitamin D deficiency (Acute) GERD (gastroesophageal reflux disease) (Acute) Hematuria (Acute) Kidney stone (Acute) Abnormal uterine bleeding (AUB) (Acute) Thickened endometrium (Acute) Past Medical History Medical History Abnormal uterine bleeding (AUB) Dyslipidemia Ectopic GERD (gastroesophageal reflux disease) Hematuria Insomnia Kidney stone Pure hypercholesterolemia Thiamine deficiency Thickened endometrium Family History Family History Mother Osteoporosis Glaucoma Migraine Ovarian cancer Uterine cancer Sister Uterine cancer Maternal Grandfather Diabetes mellitus Paternal Grandmother Diabetes mellitus HTN (hypertension) Maternal Uncle Throat cancer Colon cancer Father No problems noted. Sister No problems noted. Sister No problems noted. Brother No problems noted. Son No problems noted. Surgical History Surgical History H/O laparoscopy H/O: hysterectomy Hx of section Hx of cholecystectomy Hx of laparoscopic gastric banding Hx of lithotripsy Social History Social History Alcohol intake: former Patient Tobacco Use Status: Never used Tobacco Second Hand Smoke Exposure: Yes Are you DNR?: No Advance Directives: No Advance Directives Information Provided: No Advance Directives on File: No Gender identity: female Meds Allergies Allergy/AdvReac Type Severity Reaction Status Date / Time aspirin Allergy Intermediate SWELLING Verified 02/02/21 11:05 raspberry Allergy Intermediate Itching Verified 02/02/21 11:05 cherries Allergy Intermediate itching Uncoded 02/02/21 11:05 Home Medications Medication Instructions Recorded Confirmed Last Taken Type levonorgestrel 20 mcg/24 hours (6 0 device VAGINAL ONCE 10/02/20 02/02/21 Unknown History yrs) 52 mg intrauterine device ibuprofen 400 mg tablet 400 mg PO Q8H PRN 01/21/21 02/02/21 Unknown History mirtazapine 1 tab PO BEDTIME 01/27/21 02/02/21 Unknown History Exam Exam Date and Time: February 02, 2021 0943 Height,Weight and Vital Signs: Height 5 ft 3 in Weight 127.913 kg Narrative Narrative: EKG 01/2021 Vent. Rate : 076 BPM Atrial Rate : 076 BPM P-R Int : 182 ms QRS Dur : 086 ms QT Int : 404 ms P-R-T Axes : 051 -20 055 degrees QTc Int : 454 ms Normal sinus rhythm Normal ECG When compared with ECG of 29-DEC-2020 05:00, No significant change was found Assessment and Plan Assessment Anesthesia Assessment: Chart Reviewed Documented by User: Justine Palacios 02/03/21 07:29 [facility] Past Medical History Medical History Abnormal uterine bleeding (AUB) Dyslipidemia Ectopic GERD (gastroesophageal reflux disease) Hematuria Insomnia Kidney stone Pure hypercholesterolemia Thiamine deficiency Thickened endometrium Family History Family History Mother Osteoporosis Glaucoma Migraine Ovarian cancer Uterine cancer Sister Uterine cancer Maternal Grandfather Diabetes mellitus Paternal Grandmother Diabetes mellitus HTN (hypertension) Maternal Uncle Throat cancer Colon cancer Father No problems noted. Sister No problems noted. Sister No problems noted. Brother No problems noted. Son No problems noted. Family history of problems with anesthesia: No Surgical History Surgical History H/O laparoscopy H/O: hysterectomy Hx of section Hx of cholecystectomy Hx of laparoscopic gastric banding Hx of lithotripsy History of Problems with Anesthesia: No Social History Social History Alcohol intake: former Patient Tobacco Use Status: Never used Tobacco Second Hand Smoke Exposure: Yes Are you DNR?: No Advance Directives: No Advance Directives Information Provided: No Advance Directives on File: No Gender identity: female Meds Allergies Allergy/AdvReac Type Severity Reaction Status Date / Time aspirin Allergy Intermediate SWELLING Verified 02/02/21 11:05 raspberry Allergy Intermediate Itching Verified 02/02/21 11:05 cherries Allergy Intermediate itching Uncoded 02/02/21 11:05 Home Medications Medication Instructions Recorded Confirmed Last Taken Type levonorgestrel 20 mcg/24 hours (6 0 device VAGINAL ONCE 10/02/20 02/02/21 Unknown History yrs) 52 mg intrauterine device ibuprofen 400 mg tablet 400 mg PO Q8H PRN 01/21/21 02/02/21 Unknown History mirtazapine 1 tab PO BEDTIME 01/27/21 02/02/21 Unknown History Exam Height,Weight and Vital Signs: Vital Signs Temp Pulse Resp BP Pulse Ox 02/03/21 06:31 96.9 F 83 18 121/86 96 Pertinent Lab Results Pertinent Lab Results: Lab Results 02/03/21 Range/Units 06:17 COVID-19 (JABIER) Negative (Negative) COVID-19 Clin Com See Note Airway Mallampati Class: II TM Dist: >3cm Neck ROM: Full Heart: RRR Lungs: CTAB Assessment and Plan Assessment Anesthesia Assessment: Anesthesia Plan Discussed and Chart Reviewed Final Anesthetic Review NPO: Yes ASA Class: III Final Preanesthetic Review: No Changes in Pt Med Stat, Meds/Allgs Chart Reviewed, Consent Obtained/Reviewed and Anes Risks/Benef Reviewed Patient Risk: Intermediate Procedure Risk: Low Assessment/Block/Sedation in SS: Assess/Block/Sedation-SS Anesthetic Plan Anesthetic Plan: MAC: Disposition: Standard PACU
--- NOTE | 2021-02-02 16:03 | MHC.SHP ---
Pre-Procedural Eval Section B Chief Complaint: reflux disease Allergies: Allergies Allergy/AdvReac Type Severity Reaction Status Date / Time aspirin Allergy Intermediate SWELLING Verified 02/02/21 11:05 raspberry Allergy Intermediate Itching Verified 02/02/21 11:05 cherries Allergy Intermediate itching Uncoded 02/02/21 11:05 Plan I have reviewed the history and physical and performed a pertinent physical examination on my patient. No changes have occurred unless specified.
[2021-02-03 06:31] VITALS: BP 121/86; PULSE 83; RESP 18; TEMP 36.1; O2SAT 96
[2021-02-03] MEDS: Lactated Ringers 1,000 ML 100 ML IVCONT (06:42)
[2021-02-03 06:50] LABS: COVID-19 Test Negative (Negative)
[2021-02-03 08:06] VITALS: BP 100/56; PULSE 85; RESP 17; TEMP 36.6; O2SAT 97
--- NOTE | 2021-02-03 08:10 | P.BOP_ITS ---
Brief Operative Note Date of Service: 02/03/21 Pre-op diagnosis: Weight gain after gastric banding Post-op diagnosis: other (Hiatal hernia and antral gastritis) Procedure: Esophagogastroduodenoscopy, antral biopsy x2 Implants: None Surgeon: Marie Ramos MD Anesthesia: MAC Was an Falsework Builder used for this Procedure?: No Estimated blood loss (mL): 0 Pathology: other (Antral biopsy x2) Condition: stable Disposition: PACU
--- NOTE | 2021-02-03 08:20 | OP_ITS ---
SURGEON: Marie Ramos MD PREOPERATIVE DIAGNOSIS: POSTOPERATIVE DIAGNOSIS: PROCEDURE PERFORMED: ESTIMATED BLOOD LOSS: COMPLICATIONS: None. ANESTHESIA: Total intravenous anesthesia with propofol given by the nurse television specialist. ASSISTANTS: SPECIMENS: PREPROCEDURE DIAGNOSIS: Weight gain after gastric banding. POSTPROCEDURE DIAGNOSES: Small hiatal hernia, antral gastritis, normal gastric band. PROCEDURES PERFORMED: 1. Esophagogastroduodenoscopy. 2. Antral biopsy x2. COMPLICATIONS: None. CONDITION POSTPROCEDURE: Good. DESCRIPTION OF PROCEDURE: The patient was brought into the operating room on the stretcher and placed in the left lateral decubitus position. A safety time-out was performed. A bite block was placed between the teeth. Total intravenous anesthesia was administered using propofol by the nurse television specialist. Once the patient was adequately sedated, the gastroscope was placed into posterior oropharynx, passed down the esophagus, evaluating the esophageal mucosa which was normal. The GE junction was located at 38 cm from the incisors. There was a small hiatal hernia. Gastroscope was passed into the gastric pouch. There was no evidence of gastric band erosion or gastric band slippage. The gastric band was located at 40 cm from the incisors. The gastroscope was easily passed through the gastric band into the lower stomach. There was significant amount of bile within the stomach, which was suctioned out. The gastroscope was then retroflexed and again, there was no evidence of gastric band erosion or gastric band slippage or mucosal lesions. The gastroscope was straightened out and passed to the pre-pyloric region. There was antral gastritis with granularity and erythema, which was biopsied x2. The gastroscope was passed through the pylorus down to the 3rd portion of duodenum, all of which was normal. All of these portions of the upper endoscopy were documented using photo documentation. The gastroscope was retracted back into the stomach. Stomach was desufflated and the gastroscope was removed without difficulty. The patient tolerated the procedure well and was sent to recovery room in stable condition. Marie Ramos MD UM/MODL / [id number]
[2021-02-03 08:24] VITALS: BP 108/61; PULSE 92; RESP 16; TEMP 36.6; O2SAT 97
== END 2021-02-03 09:10 | disposition home or self-care (01) ==
PROVIDERS: PCP Internal Medicine; Visit Provider Surgery
PROC: 0DJ08ZZ Inspection of Upper Intestinal Tract, Via Natural or Artificial Opening Endoscopic (ICD-10-PCS; CPT 43235; principal; 2021-02-03 07:30)
DX: K21.9 Gastro-esophageal reflux disease without esophagitis (principal); K29.50 Unspecified chronic gastritis without bleeding; K44.9 Diaphragmatic hernia without obstruction or gangrene; E66.01 Morbid (severe) obesity due to excess calories; Z68.43 Body mass index [BMI] 50.0-59.9, adult; Z98.84 Bariatric surgery status; Z79.899 Other long term (current) drug therapy; Z88.8 Allergy status to other drugs, medicaments and biological substances; Z90.49 Acquired absence of other specified parts of digestive tract; Z20.822 Contact with and (suspected) exposure to COVID-19
CPT/HCPCS: 43239; 36415; 87635; 88305; 88342; J2250

== ENCOUNTER → 2021-02-04 08:13 | Outpatient (BNVA) | payer OTHER, SELFPAY | PROVIDERS: Visit Provider Surgery ==

== ENCOUNTER → 2021-02-15 08:08 | Outpatient (BNVA) | payer OTHER, SELFPAY | PROVIDERS: Visit Provider Dietitian, Registered | DX: E66.01 Morbid (severe) obesity due to excess calories (principal); Z68.42 Body mass index [BMI] 45.0-49.9, adult | CPT/HCPCS: 97802 ==

== ENCOUNTER → 2021-02-19 13:57 | Outpatient (BNVA) | payer OTHER, SELFPAY | PROVIDERS: Visit Provider Physician Assistant | DX: E66.01 Morbid (severe) obesity due to excess calories (principal); Z68.42 Body mass index [BMI] 45.0-49.9, adult | CPT/HCPCS: 99212 ==

== ENCOUNTER 2021-02-25 | Outpatient (REF) | payer OTHER, SELFPAY | END 2021-02-25 00:01 | disposition home or self-care (01) | LOC: HO.LNP | PROVIDERS: Visit Provider Hospitalist | DX: R30.0 Dysuria (principal) | CPT/HCPCS: 87086 ==

== ENCOUNTER 2021-03-12 14:20 | Outpatient (REF) | payer OTHER, SELFPAY ==
[2021-03-16 15:32] LABS: Zinc 64 mcg/dL (60-130)
[2021-03-17 14:56] LABS: Vitamin A 40 mcg/dL (38-98); Vitamin B1 8 nmol/L (8-30)
== END 2021-03-12 14:21 | disposition home or self-care (01) ==
LOC: HO.LAB 14:20
PROVIDERS: PCP Internal Medicine; Referring Provider Internal Medicine; Visit Provider Surgery
DX: Z01.818 Encounter for other preprocedural examination (principal); E51.9 Thiamine deficiency, unspecified; E60 Dietary zinc deficiency; E66.01 Morbid (severe) obesity due to excess calories; Z68.42 Body mass index [BMI] 45.0-49.9, adult; Z71.3 Dietary counseling and surveillance
CPT/HCPCS: 36415; 84425; 84590; 84630; 99212

== ENCOUNTER 2021-03-24 08:59 | Outpatient (REF) | payer OTHER, SELFPAY ==
[2021-03-24 11:40] LABS: Glucose Urine UA NEG (NEG); Leukocyte Esterase Urine NEG (NEG); Nitrite Urine NEG (NEG); Specific Gravity - Urine >= 1.030 (1.005-1.025); Urine Blood NEG (NEG); Urine Ketones NEG (NEG); Urine Protein NEG (NEG-TRACE)
[2021-03-24 11:50] LABS: Appearance Urine CLEAR; Color Urine YELLOW
[2021-03-24 11:54] LABS: Alanine Aminotransferase 33 U/L (0-31); Albumin Level 4.1 g/dL (3.5-5.0); Alkaline Phosphatase 117 U/L (39-117); Anion Gap 13 (12-20); Aspartate Amino Transferase 24 U/L (5-31); Bilirubin Total 0.5 mg/dL (0.0-1.0); Blood Urea Nitrogen 16 mg/dL (9-16); Calcium 9.8 mg/dL (8.4-10.2); Carbon Dioxide 25 mmol/L (22-29); Chloride 109 mmol/L (96-108); Cholesterol 216 mg/dL; Estimated Glomerular Filt Rate > 60; Glucose Fasting 106 mg/dL (60-99); HDL Cholesterol 32 mg/dL; LDL Cholesterol Calculated 161 mg/dl; Potassium 4.2 mmol/L (3.3-5.1); Sodium 143 mmol/L (135-145); Total Protein 7.5 g/dL (6.5-8.0); Triglycerides 119 mg/dL
[2021-03-24 12:14] LABS: Vitamin D 25-OH Total 32.2 ng/mL (>30)
== END 2021-03-24 09:00 | disposition home or self-care (01) ==
LOC: HO.LAB 08:59
PROVIDERS: Surgery; PCP Internal Medicine; Referring Provider Internal Medicine; Visit Provider Physician Assistant
DX: Z01.818 Encounter for other preprocedural examination (principal); E55.9 Vitamin D deficiency, unspecified; E78.5 Hyperlipidemia, unspecified; R30.0 Dysuria; K21.9 Gastro-esophageal reflux disease without esophagitis
CPT/HCPCS: 36415; 80053; 80061; 81003; 82306; 99202

== ENCOUNTER → 2021-03-30 13:28 | Outpatient (BNVA) | payer OTHER, SELFPAY | PROVIDERS: PCP Internal Medicine; Referring Provider Internal Medicine; Visit Provider Physician Assistant | DX: E66.01 Morbid (severe) obesity due to excess calories (principal); Z68.42 Body mass index [BMI] 45.0-49.9, adult | CPT/HCPCS: 99212 ==

== ENCOUNTER 2021-04-08 09:40 | Outpatient (REF) | payer OTHER, SELFPAY ==
[2021-04-09 14:26] LABS: H Pylori Breath Test NOT DETECTED (NOT DETECTED)
== END 2021-04-08 09:41 | disposition home or self-care (01) ==
LOC: HO.LNP 09:40
PROVIDERS: PCP Internal Medicine; Referring Provider Internal Medicine; Visit Provider Physician Assistant
DX: K21.9 Gastro-esophageal reflux disease without esophagitis (principal); Z11.3 Encounter for screening for infections with a predominantly sexual mode of transmission
CPT/HCPCS: 83013

== ENCOUNTER 2021-04-26 20:19 | Emergency (ER) | payer OTHER, SELFPAY ==
--- NOTE | ~2021-04-26 | CT_ITS ---
EXAMINATION: CT ABDOMEN AND PELVIS WITHOUT CONTRAST CLINICAL INFORMATION: Right flank pain with history of stone COMPARISON: None TECHNIQUE: Multidetector volumetric imaging was performed from the superior aspect of the liver through the pubic symphysis. Sagittal and coronal reformatted images were obtained on the technologist's workstation. This CT examination was performed using dose optimization techniques as appropriate, variously including the following: *Automated exposure control *Adjustment of mA and/or kV according to patient size (this includes techniques or standardized protocols for targeted exams where dose is matched to indication/reason for exam; i.e. extremities or head) *Use of iterative reconstruction technique DLP: 1051 mGy-cm FINDINGS: LUNG BASES: Some nonspecific groundglass changes are noted at the lung bases LIVER, GALLBLADDER, AND BILIARY TREE: The liver is normal in size, shape, and attenuation. No focal hepatic lesion or biliary ductal dilatation is present. Status post cholecystectomy. PANCREAS: Unremarkable. SPLEEN: Unremarkable. ADRENAL GLANDS: Unremarkable. KIDNEYS AND URETERS: Right kidney: Multiple intrarenal calculi are present with at least 3 small punctate calcifications in the upper pole a single in the mid pole and the largest in a lower pole calyx. The largest stone measures under 3 mm in size. There is mild to moderate pelvocaliectasis present on the right with dilatation of the ureter which is mild all the way down to the ureterovesical junction. No obstructing stone is seen. Perhaps there was passage of the stone recently. No renal masses are seen. Left kidney: At least 7 calculi are present in the left kidney nonobstructing, the largest is only 2 mm in a lower pole calyx. No pelvocaliectasis is seen on the left. No renal masses are detected. The left ureter is of normal caliber. BLADDER: Unremarkable. No bladder calculi seen. GASTROINTESTINAL TRACT: A lap band is present. The small and large bowel are unremarkable. The appendix is none seen but there is no evidence of appendicitis. ABDOMINAL WALL: No significant hernia is appreciated. LYMPH NODES: No retroperitoneal lymphadenopathy. VASCULAR: Unremarkable. PELVIC VISCERA: An anteverted uterus is present containing an IUD, new when compared to the prior CT, which is positioned low with a portion in the cervix. OSSEOUS STRUCTURES: Unremarkable. CT/CT abdomen pelvis wo con IMPRESSION: 1. Bilateral nonobstructing intrarenal calculi. 2. There is right-sided hydronephrosis and dilatation of the ureter. An obstructing stone is not seen. Perhaps patient recently passed a calculus. 3. Incidental note made of cholecystectomy, Lap Band and a low positioned IUD.
[2021-04-26 20:33] VITALS: BP 147/85; PULSE 127; RESP 20; TEMP 36.7; O2SAT 96; BMI 46.9
--- NOTE | 2021-04-26 20:43 | ED.ABDPAIN ---
HPI - Abdominal Pain General Chief Complaint: Abdominal Pain Stated Complaint: Flank pain Time Seen by Provider: 04/26/21 20:43 Source: patient Mode of arrival: EMS Limitations: no limitations History of Present Illness HPI narrative: Patient with history of nonobstructive kidney stone complaining of painful urination and frequency for last 3 days with suprapubic pain and noticed right flank pain since yesterday , Patient received 120 macro g of fentanyl EN route by EMS. No nausea no vomiting no fever no chills no hematuria patient moving her bowels normally patient does get urinary tract infection occasional Related Data Home Medications Medication Instructions Recorded Confirmed levonorgestrel 20 mcg/24 hours (6 0 device VAGINAL ONCE 10/02/20 03/24/21 yrs) 52 mg intrauterine device ibuprofen 400 mg tablet 400 mg PO Q8H PRN 01/21/21 03/24/21 mirtazapine 15 mg tablet 1 tab PO BEDTIME 01/27/21 03/24/21 Previous Rx's Medication Instructions Recorded omeprazole 40 mg capsule,delayed 40 mg PO DAILY 30 Days #30 cap 12/29/20 release atorvastatin 20 mg tablet 20 mg PO BEDTIME 90 Days #90 tab 02/02/21 zinc 50 mg tablet 50 mg PO BID 30 Days #60 tab 02/04/21 ciprofloxacin HCl 500 mg tablet 500 mg PO BID #20 tab 04/27/21 (Cipro) oxycodone 5 mg tablet 5 mg PO Q6H PRN #20 tab 04/27/21 phenazopyridine 200 mg tablet 200 mg PO TID PRN 2 Days #5 tab 04/27/21 (Pyridium) Allergies Allergy/AdvReac Type Severity Reaction Status Date / Time aspirin Allergy Intermediate SWELLING Verified 04/08/21 11:36 raspberry Allergy Intermediate Itching Verified 04/08/21 11:36 cherries Allergy Intermediate itching Uncoded 03/30/21 13:38 Review of Systems Review of Systems Yes all other systems are reviewed and are negative Physical Exam Vital Signs: Vital Signs: Last Vital Signs Temp 98.0 F 04/26/21 20:33 Pulse 90 04/26/21 23:46 Resp 16 04/26/21 23:53 BP 106/69 04/26/21 23:46 Pulse Ox 97 04/26/21 23:46 Body Mass Index 46.9 Appearance: Alert. Oriented X3. Obese complaining of pain in right flank area and moderate distress Eyes: No pallor or icterus ENT: Pharynx normal. Oral Mucosa moist Neck: Normal inspection. Neck supple. CVS: Normal heart rate and rhythm. Pulses normal. Respiratory: No respiratory distress. Equal air entry bilateral, no wheezing/rales/rhonchi Abdomen: Soft and nontender. Bowel sounds are present, no mass palpable, tender right CVA Skin: Skin warm and dry. Normal skin color. Normal skin turgor. Extremities: No lower extremity edema. No calf tenderness Neuro: Oriented X 3. MDM - Abdominal Pain MDM Narrative Medical decision making narrative: Patient with right flank pain with UTI CT scan negative for perinephric stranding, no obstructive stone no fever no vomiting IV Rocephin was given in the ER discharge patient home on Cipro Lab Data Result diagrams: 04/26/21 21:27 04/26/21 21:30 Labs: Lab Results 04/26/21 04/26/21 04/26/21 Range/Units 21:27 21:27 21:30 WBC 17.0 H (4.8-10.8) X10*3/uL RBC 5.22 (4.20-5.50) X10*6/uL Hgb 13.9 (12.0-16.0) g/dl Hct 44.1 (37-47) % MCV 84.5 (80-98) fL MCH 26.6 L (27.0-33.0) pg MCHC 31.5 (31.0-35.0) g/dl RDW 14.7 (11.0-16.0) % Plt Count 309 (160-400) X10*3/uL MPV 10.0 (9.4-12.3) fL Immature Gran % (Auto) 0.5 H (0.0-0.4) % Neut % (Auto) 72.6 (45-73) % Lymph % (Auto) 20.1 (20-40) % [place] % (Auto) 5.9 (2-11) % Eos % (Auto) 0.7 (0-4) % Baso % (Auto) 0.2 (0-2) % Lymph # (Auto) 3.4 (1.2-4.9) X10*3/uL [place] # (Auto) 1.0 (0.1-1.2) X10*3/uL Eos # (Auto) 0.1 (0.0-0.4) X10*3/uL Baso # (Auto) 0.0 (0.0-0.2) X10*3/uL Abs Immat Gran (auto) 0.08 H (0.00-0.03) X10*3/uL Absolute Neuts (auto) 12.3 H (2.0-8.3) X10*3/uL Absolute Nucleated RBC 0.000 (0.0-0.012) X10*3/uL Nucleated RBC % (auto) 0.0 (0.0-0.2) /100WBC Sodium 140 (135-145) mmol/L Potassium 4.3 (3.3-5.1) mmol/L Chloride 107 (96-108) mmol/L Carbon Dioxide 25 (22-29) mmol/L Anion Gap 12 (12-20) BUN 12 (9-16) mg/dL Creatinine 0.99 (0.5-1.4) mg/dL Estim Creat Clear Calc 92.0 Estimated GFR > 60 Random Glucose 110 (60-115) mg/dL Calcium 9.5 (8.4-10.2) mg/dL Total Bilirubin 0.5 (0.0-1.0) mg/dL Direct Bilirubin 0.2 (0.0-0.5) mg/dL AST 33 H (5-31) U/L ALT 41 H (0-31) U/L Alkaline Phosphatase 128 H (39-117) U/L Total Protein 7.5 (6.5-8.0) g/dL Albumin 4.0 (3.5-5.0) g/dL Lipase 31 (8-78) U/L Urine Color YELLOW Urine Appearance CLOUDY Urine pH 6.0 (5.0-8.0) Ur Specific [place] 1.010 (1.005-1.025) Urine Protein 1+ H (NEG-TRACE) MG/DL Urine Glucose (UA) NEG (NEG) MG/DL Urine Ketones NEG (NEG) MG/DL Urine Blood 3+ H (NEG) Urine Nitrite POS H (NEG) Ur Leukocyte Esterase 3+ H (NEG) Urine RBC 30-49 H (0) /HPF Urine WBC TNTC H (0-4) /HPF Urine WBC Clumps NOTED Ur Squamous Epith Cells 1+ /LPF Urine Bacteria 1+ /LPF Discharge Plan Discharge Clinical Impression: UTI (urinary tract infection), bacterial, Right flank pain Patient Disposition: Home, Self-Care Instructions: Urinary Tract Infection in Women (ED), Flank Pain (ED) Additional Instructions: Drink plenty of fluids take pain medication as advised Take antibiotic as prescribed Report to the ER if increased pain/vomiting/high-grade fever Prescriptions: New oxycodone 5 mg tablet 5 mg PO Q6H PRN (Reason: Pain (Scale Score 4-6)) Qty: 20 RF: 0 ciprofloxacin HCl [Cipro] 500 mg tablet 500 mg PO BID Qty: 20 RF: 0 phenazopyridine [Pyridium] 200 mg tablet 200 mg PO TID PRN (Reason: pain) 2 Days Qty: 5 RF: 0 No Action omeprazole 40 mg capsule,delayed release(DR/EC) 40 mg PO DAILY 30 Days Qty: 30 RF: 0 mirtazapine 15 mg tablet 1 tab PO BEDTIME RF: 0 atorvastatin 20 mg tablet 20 mg PO BEDTIME 90 Days Qty: 90 RF: 3 Mirena 20 mcg/24 hours (6 yrs) 52 mg intrauterine device 0 device vaginal ONCE RF: 0 zinc 50 mg tablet 50 mg PO BID 30 Days Qty: 60 RF: 0 ibuprofen 400 mg tablet 400 mg PO Q8H PRNRF: 0 Stand Alone Forms: Work/School Release Interventions: ED Discharge Assessment Last Done: 04/27/21 00:41 Discharge Date/Time: 04/27/21 00:41 [facility] Past Medical History Medical History Abnormal uterine bleeding (AUB) BMI 45.0-49.9, adult Dyslipidemia Ectopic GERD (gastroesophageal reflux disease) Hematuria Insomnia Kidney stone Pure hypercholesterolemia Thiamine deficiency Thickened endometrium Surgical History H/O laparoscopy H/O: hysterectomy Hx of section Hx of cholecystectomy Hx of laparoscopic gastric banding Hx of lithotripsy Family History Family History Mother Osteoporosis Glaucoma Migraine Ovarian cancer Uterine cancer Sister Uterine cancer Maternal Grandfather Diabetes mellitus Paternal Grandmother Diabetes mellitus HTN (hypertension) Maternal Uncle Throat cancer Colon cancer Father No problems noted. Sister No problems noted. Sister No problems noted. Brother No problems noted. Son No problems noted. Social History Social History Alcohol intake: former Patient Tobacco Use Status: Never used Tobacco Second Hand Smoke Exposure: Yes Advance Directives: No Advance Directives Information Provided: Yes Patient : No Gender identity: Female
[2021-04-26] MEDS: ondansetron HCL 4 MG/2 ML VIAL IVPUSH (21:01)
[2021-04-26 21:03] VITALS: RESP 20
[2021-04-26] MEDS: Morphine Sulfate 4 MG/ML CARTRIDGE IVPUSH (21:03)
[2021-04-26] MEDS: 0.9 % Sodium Chloride 1,000 ML 999 ML IVCONT ×2 (21:06→23:49)
[2021-04-26 21:35] LABS: MANUAL DIFF FLAG NO
[2021-04-26 21:36] LABS: Basophils Percent Auto 0.2 % (0-2); Eosinophils Absolute Auto 0.1 X10*3/uL (0.0-0.4); Eosinophils Percent Auto 0.7 % (0-4); Hematocrit 44.1 % (37-47); Hemoglobin 13.9 g/dl (12.0-16.0); Imm Gran Abs Auto 0.08 X10*3/uL (0.00-0.03); Imm Gran Pct Auto 0.5 % (0.0-0.4); Lymphocytes Absolute Auto 3.4 X10*3/uL (1.2-4.9); Lymphocytes Percent Auto 20.1 % (20-40); Mean Corpuscular HGB Conc 31.5 g/dl (31.0-35.0); Mean Corpuscular Hemoglobin 26.6 pg (27.0-33.0); Mean Corpuscular Volume 84.5 fL (80-98); Monocytes Percent Auto 5.9 % (2-11); Neutrophils Absolute Auto 12.3 X10*3/uL (2.0-8.3); Neutrophils Percent Auto 72.6 % (45-73); Platelet Count 309 X10*3/uL (160-400); Red Blood Count 5.22 X10*6/uL (4.20-5.50); Red Cell Distribution Width 14.7 % (11.0-16.0)
[2021-04-26 21:39] LABS: Glucose Urine UA NEG (NEG); Leukocyte Esterase Urine 3+ (NEG); Nitrite Urine POS (NEG); UACC Culture Trigger YES; Urine Blood 3+ (NEG); Urine Ketones NEG (NEG); Urine Protein 1+ MG/DL (NEG-TRACE)
[2021-04-26 22:01] LABS: Alanine Aminotransferase 41 U/L (0-31); Alkaline Phosphatase 128 U/L (39-117); Anion Gap 12 (12-20); Aspartate Amino Transferase 33 U/L (5-31); Bilirubin Direct 0.2 mg/dL (0.0-0.5); Bilirubin Total 0.5 mg/dL (0.0-1.0); Blood Urea Nitrogen 12 mg/dL (9-16); Calcium 9.5 mg/dL (8.4-10.2); Carbon Dioxide 25 mmol/L (22-29); Chloride 107 mmol/L (96-108); Estimated Glomerular Filt Rate > 60; Glucose Random 110 mg/dL (60-115); Lipase 31 U/L (8-78); Potassium 4.3 mmol/L (3.3-5.1); Sodium 140 mmol/L (135-145); Total Protein 7.5 g/dL (6.5-8.0)
[2021-04-26 22:01] LABS: Appearance Urine CLOUDY; Bacteria Urine 1+ /LPF; Color Urine YELLOW; RBC Urine 30-49 /HPF (0); Squamous Epithelial Cell Urine 1+ /LPF; WBC Clumps Urine NOTED; WBC Urine TNTC /HPF (0-4)
[2021-04-26 22:08] VITALS: RESP 16
[2021-04-26] MEDS: cefTRIAXone sodium 1 GM in 0.9 % Sodium Chloride 50 ML IV (22:26)
[2021-04-26] MEDS: oxyCODONE HCl Immed Release 5 MG TABLET 10 MG PO (22:51)
[2021-04-26 23:46] VITALS: BP 106/69; PULSE 90; RESP 16; O2SAT 97
[2021-04-26 23:49] VITALS: RESP 16
[2021-04-26] MEDS: HYDROmorphone HCl 1 MG/ML SYRINGE IVPUSH (23:49)
[2021-04-26 23:53] VITALS: RESP 16
[2021-04-27] MEDS: Phenazopyridine HCL 200 MG TABLET PO (00:35)
== END 2021-04-27 00:41 | disposition home or self-care (01) ==
PROVIDERS: Emergency Provider Internal Medicine; PCP Internal Medicine
DX: N39.0 Urinary tract infection, site not specified (principal); R10.9 Unspecified abdominal pain; E66.01 Morbid (severe) obesity due to excess calories; Z68.42 Body mass index [BMI] 45.0-49.9, adult
CPT/HCPCS: 36415; 74176; 80048; 80076; 81001; 81003; 83690; 85025; 87086; 87088; 87186; 96361; 96365; 96375; 99284; J0696; J1170; J2270; J2405

== ENCOUNTER → 2021-05-03 09:53 | Outpatient (BNVA) | payer OTHER, SELFPAY | PROVIDERS: PCP Internal Medicine ==

== ENCOUNTER → 2021-05-11 11:19 | Outpatient (BNVA) | payer OTHER, SELFPAY | PROVIDERS: PCP Internal Medicine; Visit Provider Surgery | DX: E66.01 Morbid (severe) obesity due to excess calories (principal); Z68.42 Body mass index [BMI] 45.0-49.9, adult | CPT/HCPCS: 99212 ==

== ENCOUNTER 2021-06-13 09:50 | Emergency (ER) | payer OTHER, SELFPAY ==
[2021-06-13 10:51] VITALS: BP 130/64; PULSE 84; RESP 16; TEMP 36.5; O2SAT 99; BMI 47.8
[2021-06-13 12:33] LABS: Appearance Urine CLEAR; Color Urine YELLOW; Glucose Urine UA NEG (NEG); Leukocyte Esterase Urine NEG (NEG); Nitrite Urine NEG (NEG); Specific Gravity - Urine 1.025 (1.005-1.025); Urine Blood NEG (NEG); Urine Ketones NEG (NEG); Urine Protein NEG (NEG-TRACE)
[2021-06-13 13:45] VITALS: BP 124/84; PULSE 78; RESP 16; TEMP 36.8; O2SAT 99
--- NOTE | 2021-06-13 14:16 | ED.FEMALEGU ---
HPI - Female Genitourinary General Chief complaint: Urogenital-Female Stated complaint: blood in urine Time Seen by Provider: 06/13/21 13:57 Source: patient Mode of arrival: ambulatory Limitations: no limitations History of Present Illness HPI Narrative: 45-year-old female who presents emergency department for evaluation of blood in your urine. Patient states she has been having a an itching feeling in her vaginal area for 3 days however this resolved today. She states that she was straining to urinate and she then noticed blood in the urine. She states that the blood was bright red, she did not notice any blood clots. She denied dysuria but she states she has had urinary frequency. She denied fever, chills, chest pain, shortness of breath, abdominal pain or flank. She states that she has not noticed blood in her urine in the past. She currently has no complaints. She did give us a urine sample and states she did not notice blood in the urine sample that she gave us. Related Data Home Medications Medication Instructions Recorded Confirmed levonorgestrel 20 mcg/24 hours (7 0 device VAGINAL ONCE 10/02/20 05/11/21 yrs) 52 mg intrauterine device ibuprofen 400 mg tablet 400 mg PO Q8H PRN 01/21/21 05/11/21 mirtazapine 15 mg tablet 1 tab PO BEDTIME 01/27/21 05/11/21 fluticasone propionate 50 2 INTRANASAL DAILY 05/03/21 mcg/actuation nasal spray,suspension (Flonase Allergy Relief) Previous Rx's Medication Instructions Recorded omeprazole 40 mg capsule,delayed 40 mg PO DAILY 30 Days #30 cap 12/29/20 release atorvastatin 20 mg tablet 20 mg PO BEDTIME 90 Days #90 tab 02/02/21 oxycodone 5 mg tablet 5 mg PO Q6H PRN #20 tab 04/27/21 Allergies Allergy/AdvReac Type Severity Reaction Status Date / Time aspirin Allergy Intermediate SWELLING Verified 05/11/21 11:55 raspberry Allergy Intermediate Itching Verified 05/11/21 11:55 cherries Allergy Intermediate itching Uncoded 03/30/21 13:38 Review of Systems Review of Systems: Yes all other systems are reviewed and are negative PMFSH Past Medical History PMFSH Narrative: Social history: She denies tobacco, alcohol and drug use. Medical History Abnormal uterine bleeding (AUB) BMI 45.0-49.9, adult Dyslipidemia Ectopic GERD (gastroesophageal reflux disease) Hematuria Insomnia Kidney stone Pure hypercholesterolemia Thiamine deficiency Thickened endometrium Surgical History H/O laparoscopy H/O: hysterectomy Hx of section Hx of cholecystectomy Hx of laparoscopic gastric banding Hx of lithotripsy Family History Family History Mother Osteoporosis Glaucoma Migraine Ovarian cancer Uterine cancer Sister Uterine cancer Maternal Grandfather Diabetes mellitus Paternal Grandmother Diabetes mellitus HTN (hypertension) Maternal Uncle Throat cancer Colon cancer Father No problems noted. Sister No problems noted. Sister No problems noted. Brother No problems noted. Son No problems noted. Social History Social History Alcohol intake: former Patient Tobacco Use Status: Never used Tobacco Smoked in Last 30 Days: No Second Hand Smoke Exposure: Yes Use of substances other than those prescribed or required for medical reasons: No Advance Directives: No Patient : No Gender identity: Female Physical Exam Vital Signs: Vital Signs: Last Vital Signs Temp 98.3 F 06/13/21 13:45 Pulse 78 06/13/21 13:45 Resp 16 06/13/21 13:45 BP 124/84 06/13/21 13:45 Pulse Ox 99 06/13/21 13:45 Body Mass Index 47.8 Const: General: cooperative and no acute distress Orientation/consciousness: oriented to person and oriented to place Limitations: no limitations HENMT: Head: Yes normal to inspection, Yes normocephalic and Yes atraumatic Ears: external ears normal General nose exam: Normal external nose present Face and sinus: Yes normal facial exam Mouth: Normal oral and palatal mucosa present Throat: Yes posterior oropharynx normal Eyes: General: appearance normal, both eyes and all related structures Pupils: Equal, round and reactive pupils present Neck: Neck: Yes normal visual inspection, Yes no lymphadenopathy, Yes trachea midline and Yes supple Chest: Chest palpation & inspection: normal inspection of the chest and normal palpation of entire chest wall Resp: Effort & Inspection: normal respiratory effort and able to speak in complete sentences Auscultation: clear to auscultation bilaterally Cardio: Rate: regular rate Rhythm: regular rhythm Heart sounds: S1 normal heart sound present, S2 normal heart sound present and no murmurs GI: Inspection: Yes normal to inspection Palpation (GI): Soft to palpation, nontender and no guarding Auscultation: normal bowel sounds : General: Yes no CVA tenderness Back/Spine/Pelvis: Back: no CVA tenderness Skin: General skin exam: no rashes or lesions noted Neuro: General: oriented to person and oriented to place Cranial nerves: Yes CN's II-XII intact bilaterally and Yes Equal, round and reactive pupils present Cognition (Neuro): normal cognition Motor exam (neuro): 5/5 motor strength present throughout Extrem: General: Yes normal to inspection Psych: Appearance: grossly normal Speech and movement: Normal speech and movement present Affect: normal affect Attitude: cooperative Thought process: Normal thought process present Thought content: Normal thought content present Course Course Course Narrative: 45-year-old female who presents emergency department for evaluation of 1 episode of hematuria and urinary frequency. The patient states that this or 1st episode of hematuria. Patient's physical examination was unremarkable. The patient's urinalysis was negative. At this time I do not have a clear etiology for her hematuria. I do not think that she has urinary tract infection. The patient was discharged home and advised to return if her symptoms get worse or she develops any symptoms that are concerning to her. MDM - Female Genitourinary Lab Data Labs: Lab Results 06/13/21 Range/Units 12:27 Urine Color YELLOW Urine Appearance CLEAR Urine pH 6.0 (5.0-8.0) Ur Specific [place] 1.025 (1.005-1.025) Urine Protein NEG (NEG-TRACE) MG/DL Urine Glucose (UA) NEG (NEG) MG/DL Urine Ketones NEG (NEG) MG/DL Urine Blood NEG (NEG) Urine Nitrite NEG (NEG) Ur Leukocyte Esterase NEG (NEG) Discharge Plan Discharge Clinical Impression: Hematuria Qualifiers: Hematuria type: gross Qualified Code(s): R31.0 - Gross hematuria Patient Disposition: Home, Self-Care Instructions: Hematuria (ED) Additional Instructions: Your urine test today did not reveal any red blood cells or signs of infection which were reassuring. I do not have a clear cause for your blood in urine but I do not think that you have to worry at this time. Please follow the hematuria discharge instructions. Return to the emergency department if you develop fever, chills, abdominal pain, back pain painful urination or if you develop any new symptoms that are concerning to you. Follow-up with your doctor in 2 days. Prescriptions: No Action omeprazole 40 mg capsule,delayed release(DR/EC) 40 mg PO DAILY 30 Days Qty: 30 RF: 0 mirtazapine 15 mg tablet 1 tab PO BEDTIME RF: 0 oxycodone 5 mg tablet 5 mg PO Q6H PRN (Reason: Pain (Scale Score 4-6)) Qty: 20 RF: 0 atorvastatin 20 mg tablet 20 mg PO BEDTIME 90 Days Qty: 90 RF: 3 Mirena 20 mcg/24 hours (6 yrs) 52 mg intrauterine device 0 device vaginal ONCE RF: 0 ibuprofen 400 mg tablet 400 mg PO Q8H PRNRF: 0
[2021-06-13 14:22] VITALS: BP 131/84; PULSE 74; RESP 18; TEMP 36.9; O2SAT 97
== END 2021-06-13 14:26 | disposition home or self-care (01) ==
PROVIDERS: Emergency Provider Emergency Medicine Emergency Medical Services; PCP Internal Medicine
DX: R31.0 Gross hematuria (principal); R35.0 Frequency of micturition
CPT/HCPCS: 81003; 99283; 99284

== ENCOUNTER 2021-08-18 12:26 | Outpatient (REF) | payer OTHER, SELFPAY ==
[2021-08-18 12:49] LABS: COVID-19 Test Negative (Negative)
== END 2021-08-18 12:27 | disposition home or self-care (01) ==
LOC: HO.LAB 12:26
PROVIDERS: PCP Internal Medicine; Visit Provider Internal Medicine
DX: Z20.822 Contact with and (suspected) exposure to COVID-19 (principal)
CPT/HCPCS: 36415; 87635; C9803

== ENCOUNTER → 2021-09-20 14:43 | Outpatient (BNVA) | payer OTHER, SELFPAY | PROVIDERS: PCP Internal Medicine | DX: N39.0 Urinary tract infection, site not specified (principal); A49.9 Bacterial infection, unspecified | CPT/HCPCS: 99212 ==

== ENCOUNTER 2021-09-21 12:21 | Outpatient (REF) | payer OTHER, SELFPAY ==
--- NOTE | ~2021-09-21 | MM_ITS ---
EXAMINATION: MM DIAGNOSTIC DIGITAL BREAST TOMOSYNTHESIS, BILATERAL US DIAGNOSTIC ULTRASOUND BREAST, RIGHT CLINICAL INFORMATION: Due for yearly. At time of appointment, patient notes pea-sized palpable nodule high right axilla for several weeks. The lifetime risk of breast cancer based on the Tyrer-Cuzick Model is 10%. COMPARISON: Mammography: 08/25/2020, 06/27/2019, 01/25/2018, 01/04/2016 TECHNIQUE: Digital breast tomosynthesis is performed in both the craniocaudal and mediolateral oblique views along with computer-aided detection (CAD). Synthesized 2D images are generated from the tomosynthesis. Additional bilateral MLO views are provided. Ultrasound right axilla is targeted to the area of clinical concern. Patient is able to point to the area at time of imaging. Grayscale imaging and color Doppler are performed without and with harmonics. FINDINGS: There are scattered areas of fibroglandular density (ACR BI-RADS breast composition Category b). Breast tissue composition borders on predominantly fatty. Background fibroglandular and stromal markings are stable. There is no interval mass or architectural abnormality. No abnormal calcifications. No adenopathy. No skin thickening or coarsening of the Ritesh's ligaments. The palpable area of concern noted at time of appointment is beyond the [id number]. Ultrasound right axilla demonstrates oval intradermal hypoechoic lesion measuring approximately 1.2 x 0.5 x 1.0 cm. There is surrounding hyperemia on color Doppler. Small stalk-like projection extending from the superior surface towards the skin surface. There is no subdermal extension. No adenopathy. Results are discussed with the patient at time of visit. The palpable finding is dermal in origin and mildly inflamed, likely sebaceous cyst. Warm compresses and follow-up with her PCP for recommended. MM/MM tomosynthesis diagnostic BI IMPRESSION: 1. Intradermal lesion 5 right axilla with mild surrounding inflammation, likely sebaceous cyst, measuring 1.2 x 0.5 x 1.0 cm. 2. No mammographic evidence of malignancy. ASSESSMENT: BI-RADS 2: Benign RECOMMENDATION: 1. Patient should be managed based on the clinical impression. 2. Otherwise, routine annual screening mammography. This patient's information was entered into a reminder system with a target due date for their next mammogram.
== END 2021-09-21 12:22 | disposition home or self-care (01) ==
LOC: HO.MAMMO 12:21
PROVIDERS: Visit Provider Internal Medicine
DX: R22.9 Localized swelling, mass and lump, unspecified (principal)
CPT/HCPCS: 76642; 77062; 77066

== ENCOUNTER 2021-10-07 12:17 | Outpatient (REF) | payer OTHER, SELFPAY ==
--- NOTE | ~2021-10-07 | US_ITS ---
EXAMINATION: US RETROPERITONEAL LIMITED (RENAL ONLY) CLINICAL INFORMATION: Calculus of kidney. COMPARISON: Renal ultrasound 05/05/2020 and 07/09/2019. CT abdomen and pelvis noncontrast 04/26/2021. TECHNIQUE: Real-time imaging of the kidneys. FINDINGS: RIGHT KIDNEY: 12.4 x 4.9 x 5.9 cm (SAG x AP x TRV). The kidney is normal in size, contour, and echogenicity. Renal cortical thickness is normal. No focal parenchymal lesions or hydronephrosis. There is a 4 mm nonobstructing calculus interpolar region with twinkling artifact on color Doppler. LEFT KIDNEY: 13.1 x 4.9 x 5.6 cm (SAG x AP x TRV). The kidney is normal in size, contour, and echogenicity. Renal cortical thickness is normal. No focal parenchymal lesions or hydronephrosis. There is a 5 mm nonobstructing calculus lower pole with twinkling artifact on color Doppler. US/US renal BI IMPRESSION: 1. No hydronephrosis or caliectasis. 2. Nonobstructing interpolar calculus right 4 mm 3. Nonobstructing lower pole calculus left 5 mm.
== END 2021-10-07 12:18 | disposition home or self-care (01) ==
LOC: HO.US 12:17
PROVIDERS: PCP Internal Medicine
DX: N20.0 Calculus of kidney (principal)
CPT/HCPCS: 76775

== ENCOUNTER 2021-11-11 08:25 | Outpatient (REF) | payer OTHER, SELFPAY ==
[2021-11-11 08:40] LABS: MANUAL DIFF FLAG NO
[2021-11-11 08:48] LABS: Basophils Percent Auto 0.3 % (0-2); Eosinophils Absolute Auto 0.1 X10*3/uL (0.0-0.4); Eosinophils Percent Auto 1.3 % (0-4); Hematocrit 45.6 % (37.0-47.0); Hemoglobin 14.4 g/dl (12.0-16.0); Imm Gran Abs Auto 0.09 X10*3/uL (0.00-0.03); Imm Gran Pct Auto 0.9 % (0.0-0.4); Lymphocytes Absolute Auto 2.8 X10*3/uL (1.2-4.9); Lymphocytes Percent Auto 27.5 % (20-40); Mean Corpuscular HGB Conc 31.6 g/dl (31.0-35.0); Mean Corpuscular Hemoglobin 27.7 pg (27.0-33.0); Mean Corpuscular Volume 87.7 fL (80.0-98.0); Mean Platelet Volume 9.6 fL (9.4-12.3); Monocytes Absolute Auto 0.7 X10*3/uL (0.1-1.2); Monocytes Percent Auto 6.9 % (2-11); Neutrophils Absolute Auto 6.3 x10*3/uL (2.0-8.3); Neutrophils Percent Auto 63.1 % (45-73); Platelet Count 267 X10*3/uL (160-400); Red Cell Distribution Width 13.5 % (11.0-16.0)
[2021-11-11 10:05] LABS: Alanine Aminotransferase 24 U/L (0-31); Albumin Level 3.5 g/dL (3.5-5.0); Alkaline Phosphatase 116 U/L (39-117); Anion Gap 10 (12-20); Aspartate Amino Transferase 18 U/L (5-31); Bilirubin Total 0.7 mg/dL (0.0-1.0); Blood Urea Nitrogen 11 mg/dL (9-16); Calcium 9.5 mg/dL (8.4-10.2); Carbon Dioxide 28 mmol/L (22-29); Chloride 106 mmol/L (96-108); Cholesterol 202 mg/dL; Estimated Glomerular Filt Rate > 60; Glucose Fasting 118 mg/dL (60-99); HDL Cholesterol 32 mg/dL; LDL Cholesterol Calculated 144 mg/dl; Potassium 4.5 mmol/L (3.3-5.1); Sodium 139 mmol/L (135-145); Total Protein 6.6 g/dL (6.5-8.0); Triglycerides 133 mg/dL
== END 2021-11-11 08:26 | disposition home or self-care (01) ==
LOC: HO.LAB 08:25
PROVIDERS: PCP Internal Medicine; Visit Provider Nurse Practitioner Family
DX: E78.00 Pure hypercholesterolemia, unspecified (principal); I10 Essential (primary) hypertension
CPT/HCPCS: 36415; 80053; 80061; 85025

== ENCOUNTER 2021-11-12 11:09 | Emergency (ER) | payer OTHER, SELFPAY ==
--- NOTE | ~2021-11-12 | XR_ITS ---
EXAMINATION: XR CHEST CLINICAL INFORMATION: Chest pain COMPARISON: Previous chest x-ray January 2021 TECHNIQUE: 2 views of the chest were obtained. FINDINGS: The cardiac and mediastinal contours are stable. The lungs are clear. There is no pleural effusion or pneumothorax. Bony structures are unremarkable. There is a gastric lap band. XR/XR chest 2V IMPRESSION: No evidence for acute disease in the chest.
[2021-11-12 11:18] VITALS: BP 120/79; PULSE 74; RESP 18; TEMP 36.7; O2SAT 99
[2021-11-12 11:21] VITALS: BP 123/87; PULSE 77; O2SAT 98
--- NOTE | 2021-11-12 11:21 | ECG_ITS ---
Test Reason : CP Blood Pressure : / mmHG Vent. Rate : 078 BPM Atrial Rate : 078 BPM P-R Int : 192 ms QRS Dur : 082 ms QT Int : 372 ms P-R-T Axes : 039 -21 033 degrees QTc Int : 424 ms Normal sinus rhythm Normal ECG When compared with ECG of 25-JAN-2021 14:24, No significant change was found Referred By: Generic ED Physician Electronically Signed By:MALLORIE RIVERO MD
[2021-11-12 11:22] VITALS: BP 120/79; PULSE 81; RESP 14; TEMP 37.1; O2SAT 99; BMI 48.7
--- NOTE | 2021-11-12 11:44 | ED_ITS ---
HPI - Chest Pain General Chief Complaint: Chest Pain Stated Complaint: chest pain Time Seen by Provider: 11/12/21 11:43 Source: patient Mode of arrival: ambulatory Limitations: language barrier ( Ukrainian-speaking medical office clerk utilized) History of Present Illness HPI narrative: Patient is a 45-year-old female with a history of palpitations, anxiety, obesity, dyslipidemia, renal calculi, glucose intolerance, GERD, Patient presents emergency department today for evaluation of chest pain. She reports that 4 days ago she had a sudden onset of palpitations while she was at rest that were occurring intermittently. Three days ago she was evaluated by her primary care doctor, she had a physical at this time and had some serum labs obtained denies having an EKG obtained at that time. 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 The pain then radiated into her left arm described as cramping and burning. This lasted only a few seconds and then self-resolved. She contacted her primary care provider and was evaluated in their office today. She was given aspirin and advised to come to the emergency department. Of note she does have an allergy to aspirin causing swelling when she was a young child, does not appear to be having any allergic reaction at this time. She is currently pain-free. Denies fevers, chills, neck pain, lightheadedness, dizziness, headache, vision changes, palpitations, shortness of breath, difficulty breathing, cough, nausea, vomiting, diarrhea, abdominal pain, dysuria, urinary frequency, pedal edema, generalized weakness. Denies any Recent leg swelling/ redness/ pain, personal history of DVT / PE / cancer, recent prolonged immobilization/ surgery, tobacco usage, or oral contraceptives. She reports a sister with a history of a cardiac valve issue, and her father from heart complications reportedly secondary to AIDS in his 50s. Related Data Home Medications Medication Instructions Recorded Confirmed ibuprofen 400 mg tablet 400 mg PO Q8H PRN 01/21/21 11/10/21 Previous Rx's Medication Instructions Recorded hydroxyzine HCl 25 mg tablet 25 mg PO Q6-8H PRN #14 tab 11/10/21 Allergies Allergy/AdvReac Type Severity Reaction Status Date / Time aspirin Allergy Intermediate SWELLING Verified 11/12/21 10:12 raspberry Allergy Intermediate Itching Verified 11/12/21 10:12 cherries Allergy Intermediate itching Uncoded 11/10/21 11:42 Review of Systems Review of Systems: Constitutional : No Weight loss, No Fever, No Chills ENT/Mouth :? No sore throat, No Rhinorrhea Eyes: No Eye Pain, No Swelling Cardiovascular : pos Chest Pain, no SOB, no Dyspnea on Exertion, No Orthopnea, No Edema, No Palpitations Respiratory : No Cough, No Sputum Gastrointestinal : No Nausea, No Vomiting, No Diarrhea, No abdominal Pain, No Hematochezia, No Melena Genitourinary : No Dysuria, No Urinary Frequency Musculoskeletal : No joint pain, No Myalgias, No Joint Swelling Skin : No Skin Lesions, No rash Neuro : No Weakness, No Numbness, No Dizziness, No Headache Psych : No Anxiety/Panic, No Depression Heme/Lymph: No Bruising, No Lymphadenopathy Endocrine : No Polyuria, No Polydipsia Yes all other systems are reviewed and are negative [facility] Past Medical History Medical History Abnormal uterine bleeding (AUB) BMI 45.0-49.9, adult Dyslipidemia Ectopic GERD (gastroesophageal reflux disease) Hematuria Insomnia Kidney stone Pure hypercholesterolemia Renal calculi Thiamine deficiency Thickened endometrium Surgical History H/O laparoscopy H/O: hysterectomy Hx of section Hx of cholecystectomy Hx of laparoscopic gastric banding Hx of lithotripsy Family History Family History Mother Osteoporosis Glaucoma Migraine Ovarian cancer Uterine cancer Sister Uterine cancer Maternal Grandfather Diabetes mellitus Paternal Grandmother Diabetes mellitus HTN (hypertension) Maternal Uncle Throat cancer Colon cancer Father No problems noted. Sister No problems noted. Sister No problems noted. Brother No problems noted. Son No problems noted. Social History Social History Housing: Apartment Alcohol intake: former Patient Tobacco Use Status: Never used Tobacco e-Cigarette/Vaping Use: Never Used Second Hand Smoke Exposure: Yes Advance Directives: No Advance Directives Information Provided: No Patient : No service: No 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al status: employed Gender identity: Female Cognitive needs: No Hearing needs: No Vision needs: Yes (glasses) Physical Exam Vital Signs: Vital Signs: Last Vital Signs Temp 98.1 F 11/12/21 15:01 Pulse 76 11/12/21 15:01 Resp 17 11/12/21 15:01 BP 141/75 H 11/12/21 15:01 Pulse Ox 97 11/12/21 15:01 BMI result Body Mass Index 48.7 Vital signs have been reviewed as normal and appeared to be correct. Blood pressure normal.? Heart rate normal.? Respiration rate normal. Temperature normal.? Oxygen saturation normal. Appearance: Alert.?Oriented to person, place and time. No acute distress.?Normal affect. Eyes: Pupils equal, round and reactive to light.? ENT: Pharynx normal.?? Neck: Normal inspection.? Neck supple.?? CVS: Heart sounds normal. Normal heart rate and rhythm.? Pulses normal.?? Respiratory: No respiratory distress.? Lung sounds clear to auscultation bilater ally?? Abdomen: Soft and non-tender. Normoactive bowel sounds. No pulsatile mass.?? Skin: Skin warm and dry.? Normal skin color.? Normal skin turgor.?? Extremities: No lower extremity edema.? No calf ttp? Neuro: Moves all extremities spontaneously. Sensation intact bilaterally. CN II- XII intact. No focal neuro deficits. Ambulates with normal steady gait. Course Course Course Narrative: Patient is a 45-year-old female being evaluated for a brief episode of chest pain lasting only a few seconds earlier today. She received aspirin while in PCP office, despite allergy to medication. She states that she took the medication as a child and developed swelling. Currently, there is no concern for angioedema, respiratory distress, anaphylaxis, or any swelling after receiving the medication. Will obtain CBC to evaluate for leukocytosis/ anemia, CMP and lipase to evaluate for abnormal electrolytes /abnormal renal function/ abnormal hepatic/biliary function, EKG and troponin to evaluate for ischemia/ACS. Chest x-ray to evaluate for consolidation/ infiltrate/ mass/ pulmonary congestion. Currently she is pain free. history and physical exam not consistent with AAA, aortic dissection, esophageal rupture. Disposition will be pending results Reevaluation(s) Reevaluation #1: CBC and CMP are overall unremarkable, mildly elevated alkaline phosphatase at 122 with this is consistent with prior labs. Troponin <3.5, EKG reveals n ormal sinus rhythm no acute concern for ischemia, HEART score 2 due to risk factors, since onset of pain was at 0715, obtained repeat delta troponin which was negative. Chest x-ray is unremarkable. D-Dimer 169, Wells score 0, PERC negative, therefore unlikely to be pulmonary embolism. Pain most consistent with atypical chest pain. Discussed all findings with patient. Discussed plan of care for discharge home and outpatient follow-up with her primary care provider, discussed reasons to return back to the emergency department, patient is agreeable with this plan Time: 15:52 [facility] - Chest Pain Medical Records Data Attestation: I reviewed the patient's medical records. Lab Data Attestation: I reviewed the patient's lab results. Result diagrams: 11/12/21 11:59 11/12/21 11:59 Labs: Lab Results 11/12/21 11/12/21 11/12/21 Range/Units 11:59 11:59 11:59 WBC 11.1 H (4.8-10.8) X10*3/uL RBC 5.31 (4.20-5.50) X10*6/uL Hgb 14.9 (12.0-16.0) g/dl Hct 46.5 (37.0-47.0) % MCV 87.6 (80.0-98.0) fL MCH 28.1 (27.0-33.0) pg MCHC 32.0 (31.0-35.0) g/dl RDW 13.4 (11.0-16.0) % Plt Count 285 (160-400) X10*3/uL MPV 9.7 (9.4-12.3) fL Immature Gran % (Auto) 1.0 H (0.0-0.4) % Neut % (Auto) 64.3 (45-73) % Lymph % (Auto) 26.7 (20-40) % [place] % (Auto) 6.3 (2-11) % Eos % (Auto) 1.2 (0-4) % Baso % (Auto) 0.5 (0-2) % Lymph # (Auto) 3.0 (1.2-4.9) X10*3/uL [place] # (Auto) 0.7 (0.1-1.2) X10*3/uL Eos # (Auto) 0.1 (0.0-0.4) X10*3/uL Baso # (Auto) 0.1 (0.0-0.2) X10*3/uL Abs Immat Gran (auto) 0.11 H (0.00-0.03) X10*3/uL Absolute Neuts (auto) 7.1 (2.0-8.3) x10*3/uL Absolute Nucleated RBC 0.000 (0.0-0.012) X10*3/uL Nucleated RBC % (auto) 0.0 (0.0-0.2) /100WBC D-Dimer High Sensitivty 169 NG/ML Sodium 139 (135-145) mmol/L Potassium 4.6 (3.3-5.1) mmol/L Chloride 104 (96-108) mmol/L Carbon Dioxide 29 (22-29) mmol/L Anion Gap 11 L (12-20) BUN 10 (9-16) mg/dL Creatinine 0.82 (0.5-1.4) mg/dL Estim Creat Clear Calc 126.2 Estimated GFR > 60 Random Glucose 96 (60-115) mg/dL Calcium 9.9 (8.4-10.2) mg/dL Magnesium 2.0 (1.6-2.6) mg/dL Total Bilirubin 0.7 (0.0-1.0) mg/dL AST 16 (5-31) U/L ALT 26 (0-31) U/L Alkaline Phosphatase 122 H (39-117) U/L Troponin I High Sens (<3.5-17.0) ng/L Total Protein 7.0 (6.5-8.0) g/dL Albumin 3.8 (3.5-5.0) g/dL Lipase 30 (8-78) U/L 11/12/21 11/12/21 Range/Units 11:59 14:49 WBC (4.8-10.8) X10*3/uL RBC (4.20-5.50) X10*6/uL Hgb (12.0-16.0) g/dl Hct (37.0-47.0) % MCV (80.0-98.0) fL MCH (27.0-33.0) pg MCHC (31.0-35.0) g/dl RDW (11.0-16.0) % Plt Count (160-400) X10*3/uL MPV (9.4-12.3) fL Immature Gran % (Auto) (0.0-0.4) % Neut % (Auto) (45-73) % Lymph % (Auto) (20-40) % [place] % (Auto) (2-11) % Eos % (Auto) (0-4) % Baso % (Auto) (0-2) % Lymph # (Auto) (1.2-4.9) X10*3/uL [place] # (Auto) (0.1-1.2) X10*3/uL Eos # (Auto) (0.0-0.4) X10*3/uL Baso # (Auto) (0.0-0.2) X10*3/uL Abs Immat Gran (auto) (0.00-0.03) X10*3/uL Absolute Neuts (auto) (2.0-8.3) x10*3/uL Absolute Nucleated RBC (0.0-0.012) X10*3/uL Nucleated RBC % (auto) (0.0-0.2) /100WBC D-Dimer High Sensitivty NG/ML Sodium (135-145) mmol/L Potassium (3.3-5.1) mmol/L Chloride (96-108) mmol/L Carbon Dioxide (22-29) mmol/L Anion Gap (12-20) BUN (9-16) mg/dL Creatinine (0.5-1.4) mg/dL Estim Creat Clear Calc Estimated GFR Random Glucose (60-115) mg/dL Calcium (8.4-10.2) mg/dL Magnesium (1.6-2.6) mg/dL Total Bilirubin (0.0-1.0) mg/dL AST (5-31) U/L ALT (0-31) U/L Alkaline Phosphatase (39-117) U/L Troponin I High Sens < 3.5 < 3.5 (<3.5-17.0) ng/L Total Protein (6.5-8.0) g/dL Albumin (3.5-5.0) g/dL Lipase (8-78) U/L Imaging Data Chest x-ray: Radiologist's impression: FINDINGS: The cardiac and mediastinal contours are stable. The lungs are clear. There is no pleural effusion or pneumothorax. Bony structures are unremarkable. There is a gastric lap band. XR/XR chest 2V IMPRESSION: No evidence for acute disease in the chest. ECG Data ECG #1: Attestation: I personally reviewed and interpreted this ECG as follows: ECG interpretation date: 11/12/21 ECG interpretation time: 13:13 Prior ECG tracings: available for review Interpretation: Rate: 78 Rhythm:? normal sinus rhythm [place]:? normal Normal P waves.? Normal JOSEPH.?? Normal QRS complex.?? ST T wave :?? no ST elevation, no ST depression, no T-wave inversion qTC:424 prior studies:? January 2021 The study has been interpreted contemporaneously by me. Discharge Plan Discharge Clinical Impression: Atypical chest pain Patient Disposition: Home, Self-Care Instructions: Chest Pain (ED), Noncardiac Chest Pain (ED) Additional Instructions: You were evaluated in the emergency department for chest pain. Your EKG and heart markers were normal, your D- dimer was normal therefore this is unlikely to be a blood clot in the lungs. Your chest x-ray was also normal, no sign of pneumonia or fluid buildup. At this time the cause of your pain you experienced previously is unknown. You should contact your primary care provider to schedule a follow-up appointment in 1-3 days. You may return to the emergency department with any new or worsening symptoms or concerns, this might include worsening chest pain, shortness of breath, difficulty breathing, dizziness, passing out, nausea persistent vomiting, severe abdominal pain, fevers, chills. Prescriptions: No Action hydroxyzine HCl 25 mg tablet 25 mg PO Q6-8H PRN (Reason: itching) Qty: 14 0RF ibuprofen 400 mg tablet 400 mg PO Q8H PRN0RF Interventions: ED Discharge Assessment Last Done: 11/12/21 17:03 Discharge Date/Time: 11/12/21 17:04
[2021-11-12 12:04] LABS: MANUAL DIFF FLAG NO
[2021-11-12 12:09] LABS: Basophils Absolute Auto 0.1 X10*3/uL (0.0-0.2); Basophils Percent Auto 0.5 % (0-2); Eosinophils Absolute Auto 0.1 X10*3/uL (0.0-0.4); Eosinophils Percent Auto 1.2 % (0-4); Hematocrit 46.5 % (37.0-47.0); Hemoglobin 14.9 g/dl (12.0-16.0); Imm Gran Abs Auto 0.11 X10*3/uL (0.00-0.03); Lymphocytes Percent Auto 26.7 % (20-40); Mean Corpuscular Hemoglobin 28.1 pg (27.0-33.0); Mean Corpuscular Volume 87.6 fL (80.0-98.0); Mean Platelet Volume 9.7 fL (9.4-12.3); Monocytes Absolute Auto 0.7 X10*3/uL (0.1-1.2); Monocytes Percent Auto 6.3 % (2-11); Neutrophils Absolute Auto 7.1 x10*3/uL (2.0-8.3); Neutrophils Percent Auto 64.3 % (45-73); Platelet Count 285 X10*3/uL (160-400); Red Blood Count 5.31 X10*6/uL (4.20-5.50); Red Cell Distribution Width 13.4 % (11.0-16.0); White Blood Count 11.1 X10*3/uL (4.8-10.8)
[2021-11-12 12:14] LABS: D Dimer High Sensitivity 169 NG/ML
[2021-11-12 12:21] LABS: Alanine Aminotransferase 26 U/L (0-31); Albumin Level 3.8 g/dL (3.5-5.0); Alkaline Phosphatase 122 U/L (39-117); Anion Gap 11 (12-20); Aspartate Amino Transferase 16 U/L (5-31); Bilirubin Total 0.7 mg/dL (0.0-1.0); Blood Urea Nitrogen 10 mg/dL (9-16); Calcium 9.9 mg/dL (8.4-10.2); Carbon Dioxide 29 mmol/L (22-29); Chloride 104 mmol/L (96-108); Creatinine Clr Calc Pharmacy 126.2; Estimated Glomerular Filt Rate > 60; Glucose Random 96 mg/dL (60-115); Lipase 30 U/L (8-78); Potassium 4.6 mmol/L (3.3-5.1); Sodium 139 mmol/L (135-145)
[2021-11-12 12:27] LABS: Troponin-I High Sensitivity < 3.5 ng/L (<3.5-17.0)
[2021-11-12 12:58] VITALS: BP 121/77; PULSE 75; RESP 16; O2SAT 99
[2021-11-12 15:01] VITALS: BP 141/75; PULSE 76; RESP 17; TEMP 36.7; O2SAT 97
[2021-11-12 15:13] LABS: Troponin-I High Sensitivity < 3.5 ng/L (<3.5-17.0)
== END 2021-11-12 17:04 | disposition home or self-care (01) ==
PROVIDERS: Nurse Practitioner Family; Emergency Provider Emergency Medicine; PCP Internal Medicine
DX: R07.89 Other chest pain (principal)
CPT/HCPCS: 36415; 71046; 80053; 83690; 83735; 84484; 85025; 85379; 93005; 99283

== ENCOUNTER 2021-11-29 03:13 | Emergency (ER) | payer OTHER, SELFPAY ==
[2021-11-29 03:22] VITALS: BP 131/85; PULSE 92; RESP 16; TEMP 37; O2SAT 97; BMI 49.6
[2021-11-29 04:47] VITALS: BP 113/75; PULSE 75; RESP 16; O2SAT 95
--- NOTE | 2021-11-29 06:35 | ED.HA ---
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 Mode of arrival: ambulatory Limitations: no limitations History of Present Illness MD elicited complaint: headache (worried her BP might be up - 140/90 at home when she had a headache) Onset (ago): day(s) (yesterday) Onset description: gradually and while at rest Location: occipital Severity: mild Quality & Timing: dull and constant Exacerbating factors: none Relieving factors: nothing Context: occurred at rest Associated symptoms: none Treatments prior to arrival: acetaminophen Related Data Home Medications Medication Instructions Recorded Confirmed ibuprofen 400 mg tablet 400 mg PO Q8H PRN 01/21/21 11/10/21 Previous Rx's Medication Instructions Recorded hydroxyzine HCl 25 mg tablet 25 mg PO Q6-8H PRN #14 tab 11/10/21 cyclobenzaprine 10 mg tablet 10 mg PO TID PRN #14 tab 11/29/21 Allergies Allergy/AdvReac Type Severity Reaction Status Date / Time aspirin Allergy Intermediate SWELLING Verified 11/12/21 10:12 raspberry Allergy Intermediate Itching Verified 11/12/21 10:12 cherries Allergy Intermediate itching Uncoded 11/10/21 11:42 Review of Systems Review of Systems: Constitutional : No Fever, No Chills, No Fatigue ENT/Mouth : No sore throat, No Rhinorrhea Eyes: No Eye Pain, No Swelling, No Redness Cardiovascular : No Chest Pain, No SOB, No Dyspnea on Exertion Respiratory : No Cough, No Sputum Gastrointestinal : No Nausea, No Vomiting, No Diarrhea, No abdominal Pain Genitourinary : No Dysuria, No Urinary Frequency, No Hematuria, Musculoskeletal : No joint pain, No Myalgias, No Joint Swelling Skin : No Skin Lesions, No rash Neuro : No Weakness, No Numbness, No Dizziness, positive Headache Psych : No Anxiety/Panic, No Depression Heme/Lymph: No Bruising, No Bleeding,No Lymphadenopathy Endocrine : No Polyuria, No Polydipsia All other systems reviewed and are negative [facility] Past Medical History Attestation statement: The following information was validated with the patient. Medical History Abnormal uterine bleeding (AUB) BMI 45.0-49.9, adult Dyslipidemia Ectopic GERD (gastroesophageal reflux disease) Hematuria Insomnia Kidney stone Pure hypercholesterolemia Renal calculi Thiamine deficiency Thickened endometrium Surgical History H/O laparoscopy H/O: hysterectomy Hx of section Hx of cholecystectomy Hx of laparoscopic gastric banding Hx of lithotripsy Family History Family History Mother Osteoporosis Glaucoma Migraine Ovarian cancer Uterine cancer Sister Uterine cancer Maternal Grandfather Diabetes mellitus Paternal Grandmother Diabetes mellitus HTN (hypertension) Maternal Uncle Throat cancer Colon cancer Father No problems noted. Sister No problems noted. Sister No problems noted. Brother No problems noted. Son No problems noted. Social History Social History Housing: Apartment Alcohol intake: former Patient Tobacco Use Status: Never used Tobacco e-Cigarette/Vaping Use: Never Used Second Hand Smoke Exposure: Yes Advance Directives: No Advance Directives Information Provided: Yes service: No 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al status: employed Gender identity: Female Cognitive needs: No Hearing needs: No Vision needs: Yes (glasses) Physical Exam Vital Signs: Vital Signs: Last Vital Signs Temp 98.6 F 11/29/21 03:22 Pulse 75 11/29/21 04:47 Resp 16 11/29/21 04:47 BP 113/75 11/29/21 04:47 Pulse Ox 95 11/29/21 04:47 BMI result Body Mass Index 49.6 Appearance: Alert. Oriented X3. No acute distress. Eyes: Pupils equal, round and reactive to light. ENT: Pharynx normal. Neck: Normal inspection. Neck supple. no meningeal signs CVS: Normal heart rate and rhythm. Pulses normal. Respiratory: No respiratory distress. Breath sounds normal. Abdomen: Soft and non-tender. Skin: Skin warm and dry. Normal skin color. Normal skin turgor. Extremities: No lower extremity edema. No calf ttp Neuro: Oriented X 3. No motor deficit. No sensory deficit. normal gait MDM - Headache MDM Narrative Medical decision making narrative: 45 yo female with hx of anxiety, renal colic here with c/o posterior headache and worried her BP might be up due to checking it at home and BP was 140/90. At this time the patient notes that the headache is mild her BP are under 120s here. Headache is mild, normal neuro exam, normal gait, no fevers, no meningeal signs, will offer toradol. Patient reassured given BPs normal in ED. stable for DC Discharge Plan Discharge Clinical Impression: Headache Qualifiers: Headache type: unspecified Headache chronicity pattern: acute headache Intractability: not intractable Qualified Code(s): R51.9 - Headache, unspecified Patient Disposition: Home, Self-Care Instructions: Acute Headache (ED) Additional Instructions: return to ED for any worsening symptoms or concerns Prescriptions: New cyclobenzaprine 10 mg tablet 10 mg PO TID PRN (Reason: muscle spasm) Qty: 14 0RF No Action hydroxyzine HCl 25 mg tablet 25 mg PO Q6-8H PRN (Reason: itching) Qty: 14 0RF ibuprofen 400 mg tablet 400 mg PO Q8H PRN0RF Referrals: Milly Chambers MD [Primary Care Provider] - 2 days (if not better) Stand Alone Forms: Work/School Release Interventions: ED Discharge Assessment Last Done: 11/29/21 06:59 Discharge Date/Time: 11/29/21 06:59 Print Language: Persian
[2021-11-29] MEDS: Ketorolac Tromethamine 60 MG/2 ML VIAL IM (06:50)
== END 2021-11-29 06:59 | disposition home or self-care (01) ==
PROVIDERS: Emergency Provider Emergency Medicine; PCP Internal Medicine
DX: R51.9 Headache, unspecified (principal)
CPT/HCPCS: 96372; 99284; J1885

== ENCOUNTER → 2021-12-17 09:57 | Outpatient (BNVA) | payer OTHER, SELFPAY | PROVIDERS: PCP Internal Medicine | DX: Z13.89 Encounter for screening for other disorder (principal) ==

== ENCOUNTER → 2022-01-27 09:05 | Outpatient (BNVA) | payer OTHER, SELFPAY | PROVIDERS: PCP Internal Medicine; Visit Provider Surgery | DX: K64.4 Residual hemorrhoidal skin tags (principal); K64.8 Other hemorrhoids | CPT/HCPCS: 46600; 99202 ==

== ENCOUNTER 2022-01-29 11:12 | Emergency (ER) | payer OTHER, SELFPAY ==
--- NOTE | ~2022-01-29 | CT_ITS ---
EXAMINATION: CT ABDOMEN AND PELVIS WITHOUT CONTRAST CLINICAL INFORMATION: Reason for Exam L flank pain COMPARISON: 04/26/2021 TECHNIQUE: Multidetector volumetric imaging was performed from the lung bases through the pubic symphysis. Sagittal and coronal reformatted images were obtained on the technologist workstation. This CT examination was performed using dose optimization techniques as appropriate, variously including the following: *Automated exposure control *Adjustment of mA and/or kV according to patient size (this includes techniques or standardized protocols for targeted exams where dose is matched to indication/reason for exam; i.e. extremities or head) *Use of iterative reconstruction technique DLP 1289 FINDINGS: The lack of intravenous contrast limits evaluation of the solid visceral organs including the liver, spleen, pancreas, and kidneys. LUNG BASES: The visualized lung bases are unremarkable. LIVER, GALLBLADDER, AND BILIARY TREE: There is patchy low density in the liver which is lower in density than the spleen suggesting patchy hepatic steatosis. No focal liver lesion. No biliary ductal dilatation. Status post cholecystectomy. PANCREAS: Limited non-contrast evaluation is normal. No didi-pancreatic fluid. SPLEEN: Limited non-contrast evaluation is normal. ADRENAL GLANDS: Normal; no adrenal mass. KIDNEYS AND URETERS: Punctate 1 to 2 mm right upper pole calculus. 2 to 3 mm right lower pole calculus. 5 mm and 3 mm left mid renal calculi. 5 mm left lower pole calculus. No hydronephrosis or hydroureter. GASTROINTESTINAL TRACT: Laparoscopic after band and tubing are in place. Stomach and small bowel are nondilated. Appendix not seen but there are no right lower quadrant inflammatory changes to suggest appendicitis. ABDOMINAL WALL: No hernia seen. LYMPH NODES: No pathologically enlarged lymph nodes in the abdomen or pelvis. VASCULAR: Normal caliber abdominal aorta. BLADDER: Unremarkable. PELVIC VISCERA: There is an IUD in place. The IUD is low lying and eccentrically positioned, extending into the endocervical canal. There is a simple appearing water density 6 cm left adnexal cyst. OSSEOUS STRUCTURES: No acute or suspicious osseous abnormalities. CT/CT abdomen pelvis wo con IMPRESSION: 6 cm water density left adnexal cyst. Although this is probably a benign physiologic cyst in a reproductive age female patient, given the size greater than 5 cm, follow-up ultrasound in 3-6 months is recommended to confirm resolution. There is an IUD which appears to be malpositioned, low lying and extending into the endocervical canal. This may limit its efficacy and repositioning should be considered. Nonobstructing bilateral renal calculi. No evidence of obstructive uropathy.
--- NOTE | ~2022-01-29 | US_ITS ---
EXAMINATION: US PELVIS CLINICAL INFORMATION: Left-sided pain COMPARISON: 07/27/2020 TECHNIQUE: Ultrasound of the pelvis is performed using both transabdominal and transvaginal transducers along with Doppler. Transvaginal imaging is performed due to inadequate visualization transabdominally. FINDINGS: Uterus: The uterus is anteverted and measures 10.2 x 5.4 x 4.5 cm. No focal myometrial lesion. The double wall endometrial thickness is [address] without migration. The uterus is smooth in contour and has normal myometrial echogenicity. No visible fibroid. Adnexa: Right ovary is absent consistent with surgical history. No adnexal lesion or free fluid. Left ovary measures prominent at 6.4 x 6.2 x 6.1 cm. This is a volume 127 mL secondary to a complex 6.1 x 5.5 x 5.5 cm cystic lesion. Normal flow to both left ovary. No color flow within the cystic lesion. US/US pelvic and transvaginal IMPRESSION: Complex cystic lesion left ovary measuring up to 6.1 cm. No active torsion. Diagnostic considerations include a hemorrhagic cyst. Entities such as endometrioma not excluded if there is a history of endometriosis. Otherwise consider follow-up in 6 weeks to ensure resolution. No specific findings to indicate a cystic neoplasm.
--- NOTE | ~2022-01-29 | US_ITS ---
EXAMINATION: US PELVIS CLINICAL INFORMATION: Left-sided pain COMPARISON: 07/27/2020 TECHNIQUE: Ultrasound of the pelvis is performed using both transabdominal and transvaginal transducers along with Doppler. Transvaginal imaging is performed due to inadequate visualization transabdominally. FINDINGS: Uterus: The uterus is anteverted and measures 10.2 x 5.4 x 4.5 cm. No focal myometrial lesion. The double wall endometrial thickness is [address] without migration. The uterus is smooth in contour and has normal myometrial echogenicity. No visible fibroid. Adnexa: Right ovary is absent consistent with surgical history. No adnexal lesion or free fluid. Left ovary measures prominent at 6.4 x 6.2 x 6.1 cm. This is a volume 127 mL secondary to a complex 6.1 x 5.5 x 5.5 cm cystic lesion. Normal flow to both left ovary. No color flow within the cystic lesion. US/US pelvic ovarian doppler IMPRESSION: Complex cystic lesion left ovary measuring up to 6.1 cm. No active torsion. Diagnostic considerations include a hemorrhagic cyst. Entities such as endometrioma not excluded if there is a history of endometriosis. Otherwise consider follow-up in 6 weeks to ensure resolution. No specific findings to indicate a cystic neoplasm.
[2022-01-29 11:19] VITALS: BP 132/79; PULSE 87; RESP 18; TEMP 35.9; O2SAT 100; BMI 49.6
[2022-01-29 11:47] LABS: Basophils Percent Auto 0.3 % (0-2); Eosinophils Absolute Auto 0.2 X10*3/uL (0.0-0.4); Eosinophils Percent Auto 1.8 % (0-4); Hematocrit 46.2 % (37.0-47.0); Hemoglobin 15.1 g/dl (12.0-16.0); Imm Gran Abs Auto 0.07 X10*3/uL (0.00-0.03); Imm Gran Pct Auto 0.7 % (0.0-0.4); Lymphocytes Absolute Auto 3.1 X10*3/uL (1.2-4.9); Lymphocytes Percent Auto 29.9 % (20-40); MANUAL DIFF FLAG NO; Mean Corpuscular HGB Conc 32.7 g/dl (31.0-35.0); Mean Corpuscular Hemoglobin 28.4 pg (27.0-33.0); Mean Platelet Volume 9.4 fL (9.4-12.3); Monocytes Absolute Auto 0.8 X10*3/uL (0.1-1.2); Monocytes Percent Auto 7.4 % (2-11); Neutrophils Absolute Auto 6.1 x10*3/uL (2.0-8.3); Neutrophils Percent Auto 59.9 % (45-73); Platelet Count 269 X10*3/uL (160-400); Red Blood Count 5.31 X10*6/uL (4.20-5.50); Red Cell Distribution Width 13.8 % (11.0-16.0); White Blood Count 10.2 X10*3/uL (4.8-10.8)
[2022-01-29 11:47] LABS: Appearance Urine CLEAR; Color Urine YELLOW; Glucose Urine UA NEG (NEG); Leukocyte Esterase Urine NEG (NEG); Nitrite Urine NEG (NEG); Specific Gravity - Urine >= 1.030 (1.005-1.025); Urine Blood NEG (NEG); Urine Ketones NEG (NEG); Urine Protein TRACE MG/DL (NEG-TRACE)
[2022-01-29 11:49] LABS: UPreg QC Valid YES; Urine Pregnancy NEGATIVE (NEGATIVE)
[2022-01-29 12:03] LABS: COVID-19 Test Negative (Negative)
[2022-01-29 12:05] LABS: Alanine Aminotransferase 30 U/L (0-31); Albumin Level 3.6 g/dL (3.5-5.0); Alkaline Phosphatase 114 U/L (39-117); Anion Gap 11 (12-20); Aspartate Amino Transferase 19 U/L (5-31); Bilirubin Direct 0.2 mg/dL (0.0-0.5); Bilirubin Total 0.6 mg/dL (0.0-1.0); Blood Urea Nitrogen 10 mg/dL (9-16); Calcium 9.3 mg/dL (8.4-10.2); Carbon Dioxide 26 mmol/L (22-29); Chloride 107 mmol/L (96-108); Creatinine Clr Calc Pharmacy 100.2; Estimated Glomerular Filt Rate > 60; Glucose Random 132 mg/dL (60-115); Potassium 4.7 mmol/L (3.3-5.1); Sodium 139 mmol/L (135-145); Total Protein 6.8 g/dL (6.5-8.0)
[2022-01-29 12:11] LABS: IDNOW Serial# 08D9AD1C; Influenza A Negative (Negative); Influenza B2 Negative (Negative)
[2022-01-29 15:55] VITALS: BP 134/86; PULSE 84; RESP 18; O2SAT 98
--- NOTE | 2022-01-29 16:36 | ED_ITS ---
HPI - Female Genitourinary General Chief complaint: Urogenital-Female Stated complaint: L Side Pain Time Seen by Provider: 01/29/22 16:34 Source: patient Mode of arrival: ambulatory Limitations: no limitations History of Present Illness HPI Narrative: This is a 46-year-old female presenting with urinary urgency as well as left- sided flank pain x3 days worsening. Patient tells me that she feels the flank pain every time she needs to urinate and when she feels the pain she gets an urgency to go to the bathroom. Patient tells me that she gets frequent urinary tract infections. And she also has a history of kidney stones. She denies urinary frequency, fevers, hematuria, nausea, vomiting, abdominal pain, chest pain, shortness of breath, urinary incontinence, back pain, numbness and tingling. MD elicited complaint: flank pain Onset (ago): day(s) (3) Location of symptoms: flank Severity: moderate Female Urogenital Radiation: Non-Radiating Quality of pain: dull and burning Consistency: constant Vaginal discharge: none Vaginal bleeding: none Urinary symptoms: Urgency Exacerbating factors: urination Relieving factors: none Associated symptoms: denies other symptoms Treatment prior to arrival: none Related Data Home Medications Medication Instructions Recorded Confirmed ibuprofen 400 mg tablet 400 mg PO Q8H PRN 01/21/21 01/27/22 Previous Rx's Medication Instructions Recorded hydroxyzine HCl 25 mg tablet 25 mg PO Q6-8H PRN #14 tab 11/10/21 cyclobenzaprine 10 mg tablet 10 mg PO TID PRN #14 tab 11/29/21 pyridoxine (vitamin B6) 50 mg 50 mg PO DAILY #30 cap 12/17/21 capsule cefuroxime axetil 250 mg tablet 250 mg PO BID 7 Days #14 tab 01/29/22 morphine 15 mg immediate release 15 mg PO BID PRN #6 tab 01/29/22 tablet Allergies Allergy/AdvReac Type Severity Reaction Status Date / Time aspirin Allergy Intermediate SWELLING Verified 01/27/22 09:19 raspberry Allergy Intermediate Itching Verified 01/27/22 09:19 cherries Allergy Intermediate itching Uncoded 01/27/22 09:19 Review of Systems Review of Systems: Constitutional : No Weight loss, No Fever, No Chills, No Fatigue, No Malaise ENT/Mouth : No sore throat, No Rhinorrhea Eyes: No Eye Pain, No Swelling, No Redness Cardiovascular : No Chest Pain, No SOB, No Dyspnea on Exertion, No Orthopnea, No Edema, No Palpitations Respiratory : No Cough, No Sputum, No Wheezing Gastrointestinal : No Nausea, No Vomiting, No Diarrhea, No Constipation, No abdominal Pain, No Hematochezia, No Melena Genitourinary : No Dysuria, No Urinary Frequency, No Hematuria, +urinary urgency Musculoskeletal : No joint pain, No Myalgias, No Joint Swelling, + flank pain Skin : No Skin Lesions, No rash Neuro : No Weakness, No Numbness, No Dizziness, No Headache Psych : No Anxiety/Panic, No Depression All other systems reviewed and are negative Yes all other systems are reviewed and are negative [facility] Past Medical History Attestation statement: The following information was validated with the patient. Source: old records reviewed and nursing notes reviewed Medical History Abnormal uterine bleeding (AUB) BMI 45.0-49.9, adult Dyslipidemia Ectopic GERD (gastroesophageal reflux disease) Hematuria Hemorrhoids Insomnia Internal and external hemorrhoids without complication Kidney stone Pure hypercholesterolemia Renal calculi Thiamine deficiency Thickened endometrium Surgical History H/O laparoscopy H/O: hysterectomy Hx of section Hx of cholecystectomy Hx of laparoscopic gastric banding Hx of lithotripsy Family History Family History Mother Osteoporosis Glaucoma Migraine Ovarian cancer Uterine cancer Sister Uterine cancer Maternal Grandfather Diabetes mellitus Paternal Grandmother Diabetes mellitus HTN (hypertension) Maternal Uncle Throat cancer Colon cancer Father No problems noted. Sister No problems noted. Sister No problems noted. Brother No problems noted. Son No problems noted. Social History Social History Housing: Apartment Alcohol intake: former Patient Tobacco Use Status: Never used Tobacco e-Cigarette/Vaping Use: Never Used Second Hand Smoke Exposure: Yes Advance Directives: No Advance Directives Information Provided: No service: No 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al status: employed Gender identity: Female Cognitive needs: No Hearing needs: No Vision needs: Yes (glasses) Physical Exam Vital Signs: Vital Signs: Last Vital Signs Temp 98.4 F 01/29/22 18:59 Pulse 82 01/29/22 18:59 Resp 16 01/29/22 18:59 BP 128/84 01/29/22 18:59 Pulse Ox 98 01/29/22 18:59 BMI result Body Mass Index 49.6 Vital signs stable Appearance: Alert.? Oriented X3.? No acute distress.? Head: Normocephalic, atraumatic, no step-offs or deformities Eyes: Pupils equal, round and reactive to light.? ENT: Pharynx normal.? Neck: Normal inspection.? Neck supple.? CVS: Normal heart rate and rhythm.? Pulses normal.? Respiratory: No respiratory distress.? Breath sounds normal.? Abdomen: Soft and nontender.? Skin: Skin warm and dry.? Normal skin color.? Normal skin turgor.? Extremities: No lower extremity edema.? No calf ttp. 5/5 strength to bilateral upper and lower extremities Back: No midline tenderness, no C-spine tenderness, full range of motion, no CVA tenderness bilaterally Neuro: Oriented X 3.? No motor deficit.? No sensory deficit. CN 2-12 intact Course Reevaluation(s) Reevaluation #1: CBC within normal limits. Chemistry with no acute electrolyte abnormalities requiring intervention. Urine clean. COVID negative. CT of the abdomen pelvis shows a 6 cm water density left adnexal cyst which could be causing patient's pain will obtain an ultrasound to rule out ovarian torsion. Will also advised her to follow-up with OBGYN for repeat ultrasound in 3-[address] of the abdomen and pelvis also shows a malpositioned IUD. And will advise her to follow-up with OBGYN for this. There are bilateral nonobstructing renal calculil however unlikely causing patient's pain. Patient's urine is negative for infection however she is reporting urinary frequency/urgency and she tells me she gets frequent UTIs for that reason will treat patient for UTI at this time. Time: 19:18 Reevaluation #2: Ultrasound shows a complex cystic lesion to the left ovary measuring 6.1 cm. No active torsion. Differential includes hemorrhagic cyst, endometrioma. I discussed these findings with patient. Will send her home on pain medicine. Advised her to follow-up with OBGYN as soon as possible as she will likely require a follow-up ultrasound. At this time I feel comfortable discharge home with strict return precautions. Comfortable with discharge home Upon discharge patient appears comfortable, no acute distress with stable vital signs, afebrile, not tachycardic. Pain well controlled with morphine. Time: 21:34 MDM - Female Genitourinary MDM Narrative Medical decision making narrative: 1639 46-year-old female history of kidney stones, frequent UTIs presents with left- sided flank pain and urinary urgency x3 days. Physical examination is benign. Plan at this time is labs, urine, CT of the abdomen and pelvis to rule out kidney stones, pylo, urinary tract infection, pelvic cysts Medical Records Attestation: I reviewed the patient's medical records. Lab Data Attestation: I reviewed the patient's lab results. Result diagrams: 01/29/22 11:42 01/29/22 11:42 Labs: Lab Results 01/29/22 01/29/22 01/29/22 Range/Units 11:38 11:38 11:39 WBC (4.8-10.8) X10*3/uL RBC (4.20-5.50) X10*6/uL Hgb (12.0-16.0) g/dl Hct (37.0-47.0) % MCV (80.0-98.0) fL MCH (27.0-33.0) pg MCHC (31.0-35.0) g/dl RDW (11.0-16.0) % Plt Count (160-400) X10*3/uL MPV (9.4-12.3) fL Immature Gran % (Auto) (0.0-0.4) % Neut % (Auto) (45-73) % Lymph % (Auto) (20-40) % [place] % (Auto) (2-11) % Eos % (Auto) (0-4) % Baso % (Auto) (0-2) % Lymph # (Auto) (1.2-4.9) X10*3/uL [place] # (Auto) (0.1-1.2) X10*3/uL Eos # (Auto) (0.0-0.4) X10*3/uL Baso # (Auto) (0.0-0.2) X10*3/uL Abs Immat Gran (auto) (0.00-0.03) X10*3/uL Absolute Neuts (auto) (2.0-8.3) x10*3/uL Absolute Nucleated RBC (0.0-0.012) X10*3/uL Nucleated RBC % (auto) (0.0-0.2) /100WBC Sodium (135-145) mmol/L Potassium (3.3-5.1) mmol/L Chloride (96-108) mmol/L Carbon Dioxide (22-29) mmol/L Anion Gap (12-20) BUN (9-16) mg/dL Creatinine (0.5-1.4) mg/dL Estim Creat Clear Calc Estimated GFR Random Glucose (60-115) mg/dL Calcium (8.4-10.2) mg/dL Total Bilirubin (0.0-1.0) mg/dL Direct Bilirubin (0.0-0.5) mg/dL AST (5-31) U/L ALT (0-31) U/L Alkaline Phosphatase (39-117) U/L Total Protein (6.5-8.0) g/dL Albumin (3.5-5.0) g/dL Urine Color YELLOW Urine Appearance CLEAR Urine pH 6.0 (5.0-8.0) Ur Specific [place] >= 1.030 H (1.005-1.025) Urine Protein TRACE (NEG-TRACE) MG/DL Urine Glucose (UA) NEG (NEG) MG/DL Urine Ketones NEG (NEG) MG/DL Urine Blood NEG (NEG) Urine Nitrite NEG (NEG) Ur Leukocyte Esterase NEG (NEG) Urine Test NEGATIVE (NEGATIVE) COVID-19 (JABIER) (Negative) COVID-19 Clin Com Influenza Type A (LEXIS) Negative (Negative) Influenza Type B (LEXIS) Negative (Negative) Influenza A & B Note See Note 01/29/22 01/29/22 01/29/22 Range/Units 11:39 11:42 11:42 WBC 10.2 (4.8-10.8) X10*3/uL RBC 5.31 (4.20-5.50) X10*6/uL Hgb 15.1 (12.0-16.0) g/dl Hct 46.2 (37.0-47.0) % MCV 87.0 (80.0-98.0) fL MCH 28.4 (27.0-33.0) pg MCHC 32.7 (31.0-35.0) g/dl RDW 13.8 (11.0-16.0) % Plt Count 269 (160-400) X10*3/uL MPV 9.4 (9.4-12.3) fL Immature Gran % (Auto) 0.7 H (0.0-0.4) % Neut % (Auto) 59.9 (45-73) % Lymph % (Auto) 29.9 (20-40) % [place] % (Auto) 7.4 (2-11) % Eos % (Auto) 1.8 (0-4) % Baso % (Auto) 0.3 (0-2) % Lymph # (Auto) 3.1 (1.2-4.9) X10*3/uL [place] # (Auto) 0.8 (0.1-1.2) X10*3/uL Eos # (Auto) 0.2 (0.0-0.4) X10*3/uL Baso # (Auto) 0.0 (0.0-0.2) X10*3/uL Abs Immat Gran (auto) 0.07 H (0.00-0.03) X10*3/uL Absolute Neuts (auto) 6.1 (2.0-8.3) x10*3/uL Absolute Nucleated RBC 0.000 (0.0-0.012) X10*3/uL Nucleated RBC % (auto) 0.0 (0.0-0.2) /100WBC Sodium 139 (135-145) mmol/L Potassium 4.7 (3.3-5.1) mmol/L Chloride 107 (96-108) mmol/L Carbon Dioxide 26 (22-29) mmol/L Anion Gap 11 L (12-20) BUN 10 (9-16) mg/dL Creatinine 0.93 (0.5-1.4) mg/dL Estim Creat Clear Calc 100.2 Estimated GFR > 60 Random Glucose 132 H (60-115) mg/dL Calcium 9.3 D (8.4-10.2) mg/dL Total Bilirubin 0.6 (0.0-1.0) mg/dL Direct Bilirubin 0.2 (0.0-0.5) mg/dL AST 19 (5-31) U/L ALT 30 (0-31) U/L Alkaline Phosphatase 114 (39-117) U/L Total Protein 6.8 (6.5-8.0) g/dL Albumin 3.6 (3.5-5.0) g/dL Urine Color Urine Appearance Urine pH (5.0-8.0) Ur Specific [place] (1.005-1.025) Urine Protein (NEG-TRACE) MG/DL Urine Glucose (UA) (NEG) MG/DL Urine Ketones (NEG) MG/DL Urine Blood (NEG) Urine Nitrite (NEG) Ur Leukocyte Esterase (NEG) Urine Test (NEGATIVE) COVID-19 (JABIER) Negative (Negative) COVID-19 Clin Com See Note Influenza Type A (LEXIS) (Negative) Influenza Type B (LEXIS) (Negative) Influenza A & B Note Critical Care Time Critical Care Time Critical Care Time: No Discharge Plan Discharge Clinical Impression: Left flank pain, Renal calculi, Adnexal cyst, Urinary tract infection, Malpositioned IUD Patient Disposition: Home, Self-Care Instructions: Kidney Stones (ED), Flank Pain (ED) Additional Instructions: Take your medications as prescribed. If you were prescribed antibiotics today, it is important that you take your medication to their entirety, do not skip any doses, do not finish them early. Follow-up with your primary care provider this week. Follow-up with OBGYN as soon as possible, your CT scan results recommend a repeat CT scan in 3-6 months to follow that adnexal cyst. Also your CT scan did show a malpositioned IUD. Return to the emergency department with new or worsening symptoms. Such as fevers, chills, chest pain, shortness of breath, nausea, vomiting, dizziness, headache, vision changes, lethargy, vaginal bleeding, vaginal discharge, confusion In case of emergency call 911 Morphine has been sent to your pharmacy, please take this only for severe pain. For [id number] pain you can alternate ibuprofen every 6 hours, Tylenol every 4. [place] claude medicamentos seg?n lo prescrito. Si le recetaron antibi?luis lee, es importante que tome clay medicamento en clay totalidad, no se salte ninguna dosis, no los termine antes de tiempo. Seguimiento con clay proveedor de atenci?n primaria esta semana. Seguimiento con OBGYN [place] pronto sourav sea posible, los resultados de clay tomograf?a computarizada recomiendan dary tomograf?a computarizada repetida en 3-6 meses para denis seguimiento a arelis quiste anexial. Adem?s, clay tomograf?a computarizada mostr? un DIU mal colocado. Regrese al departamento de emergencias con s?ntomas nuevos o que empeoran. Sourav fiebre, escalofr?os, dolor de pecho, dificultad para respirar, n?useas, v?mitos, mareos, dolor de anais, cambios en la visi?n, letargo, sangrado vaginal, flujo vaginal, confusi?n En carlos de emergencia llama al 911 Se envi? morfina a clay farmacia, t?gaurav solo para el dolor intenso. Para el dolor leve a moderado, puede alternar ibuprofeno cada 6 horas, Tylenol cada 4. US/US pelvic and transvaginal IMPRESSION: Complex cystic lesion left ovary measuring up to 6.1 cm. No active torsion. Diagnostic considerations include a hemorrhagic cyst. Entities such as endometrioma not excluded if there is a history of endometriosis. Otherwise consider follow-up in 6 weeks to ensure resolution. No specific findings to indicate a cystic neoplasm. CT/CT abdomen pelvis wo con IMPRESSION: 6 cm water density left adnexal cyst. Although this is probably a benign physiologic cyst in a reproductive age female patient, given the size greater than 5 cm, follow-up ultrasound in 3-6 months is recommended to confirm resolution. ? There is an IUD which appears to be malpositioned, low lying and extending into the endocervical canal. This may limit its efficacy and repositioning should be considered. ? Nonobstructing bilateral renal calculi. No evidence of obstructive uropathy. Prescriptions: New cefuroxime axetil 250 mg tablet 250 mg PO BID 7 Days Qty: 14 0RF morphine 15 mg tablet 15 mg PO BID PRN (Reason: pain) Qty: 6 0RF Rx Instructions: Patient can partially filled prescription upon request No Action cyclobenzaprine 10 mg tablet 10 mg PO TID PRN (Reason: muscle spasm) Qty: 14 0RF hydroxyzine HCl 25 mg tablet 25 mg PO Q6-8H PRN (Reason: itching) Qty: 14 0RF ibuprofen 400 mg tablet 400 mg PO Q8H PRN0RF pyridoxine (vitamin B6) 50 mg capsule 50 mg PO DAILY Qty: 30 0RF Referrals: Milly Chambers MD [Primary Care Provider] - 2 days Placido Saenz MD [Physician] - 2 days Stand Alone Forms: Work/School Release Print Language: Syriac
[2022-01-29 18:18] VITALS: BP 136/85; PULSE 70; RESP 18; O2SAT 98
[2022-01-29 18:59] VITALS: BP 128/84; PULSE 82; RESP 16; TEMP 36.9; O2SAT 98
[2022-01-29] MEDS: 0.9 % Sodium Chloride 1,000 ML 999 ML IV (21:02)
== END 2022-01-29 21:54 | disposition home or self-care (01) ==
PROVIDERS: Emergency Provider Emergency Medicine Emergency Medical Services; PCP Internal Medicine
DX: N39.0 Urinary tract infection, site not specified (principal); N20.0 Calculus of kidney; R39.15 Urgency of urination; R30.0 Dysuria; T83.32XA Displacement of intrauterine contraceptive device, initial encounter; Y76.2 Prosthetic and other implants, materials and accessory obstetric and gynecological devices associated with adverse incidents; Y92.9 Unspecified place or not applicable; Z20.822 Contact with and (suspected) exposure to COVID-19; Z79.899 Other long term (current) drug therapy
CPT/HCPCS: 74176; 76830; 76856; 80053; 81003; 81025; 82248; 85025; 87502; 87635; 93975; 96374; 99284

== ENCOUNTER 2022-02-09 12:05 | Outpatient (REF) | payer OTHER, SELFPAY ==
[2022-02-09 17:52] LABS: CT PCR NOT DETECTED (Not Detect.); NG PCR NOT DETECTED (Not Detect.)
[2022-02-11 02:11] LABS: CA 125 New Method 12 U/mL (<35); CA-125 12 U/mL (<35)
== END 2022-02-09 12:06 | disposition home or self-care (01) ==
LOC: HO.LAB 12:05
PROVIDERS: PCP Internal Medicine; Visit Provider Obstetrics & Gynecology
DX: N83.299 Other ovarian cyst, unspecified side (principal)
CPT/HCPCS: 36415; 81025; 86304; 87491; 87591; 99212

== ENCOUNTER 2022-02-14 12:51 | Outpatient (REF) | payer OTHER, SELFPAY ==
[2022-02-14 13:40] LABS: Influenza A PCR NEGATIVE (Negative); Influenza B PCR NEGATIVE (Negative); Resp Syncy Virus RNA Qual PCR NEGATIVE (Negative); SARS COV2 PCR INHOUSE NEGATIVE (Negative)
== END 2022-02-14 12:52 | disposition home or self-care (01) ==
LOC: HO.LNP 12:51
PROVIDERS: Visit Provider Physician Assistant
DX: Z20.822 Contact with and (suspected) exposure to COVID-19 (principal); B34.9 Viral infection, unspecified
CPT/HCPCS: 0241U

== ENCOUNTER → 2022-02-15 11:22 | Outpatient (BNVA) | payer OTHER, SELFPAY | PROVIDERS: PCP Internal Medicine | DX: N20.0 Calculus of kidney (principal) | CPT/HCPCS: 99212 ==

== ENCOUNTER 2022-03-09 05:42 | Emergency (ER) | payer OTHER, SELFPAY ==
--- NOTE | 2022-03-09 05:58 | ECG_ITS ---
Test Reason : CHEST PRESSURE Blood Pressure : / mmHG Vent. Rate : 078 BPM Atrial Rate : 078 BPM P-R Int : 194 ms QRS Dur : 084 ms QT Int : 384 ms P-R-T Axes : 028 -31 031 degrees QTc Int : 437 ms Normal sinus rhythm Left axis deviation Possible Anterior infarct , age undetermined Abnormal ECG When compared with ECG of 12-NOV-2021 11:21, No significant change was found Referred By: Generic ED Physician Electronically Signed By:Jhon Castro
[2022-03-09 06:03] VITALS: BP 131/83; PULSE 87; RESP 20; TEMP 37.1; O2SAT 94; BMI 51.3
[2022-03-09 06:03] LABS: Hematocrit 43.1 % (37.0-47.0); Hemoglobin 14.1 g/dl (12.0-16.0); Mean Corpuscular HGB Conc 32.7 g/dl (31.0-35.0); Mean Corpuscular Hemoglobin 28.3 pg (27.0-33.0); Mean Corpuscular Volume 86.5 fL (80.0-98.0); Mean Platelet Volume 9.7 fL (9.4-12.3); Platelet Count 253 X10*3/uL (160-400); Red Blood Count 4.98 X10*6/uL (4.20-5.50); Red Cell Distribution Width 13.4 % (11.0-16.0); White Blood Count 10.7 X10*3/uL (4.8-10.8)
[2022-03-09 06:20] LABS: Alanine Aminotransferase 35 U/L (0-31); Albumin Level 3.6 g/dL (3.5-5.0); Alkaline Phosphatase 121 U/L (39-117); Anion Gap 10 (12-20); Aspartate Amino Transferase 24 U/L (5-31); Bilirubin Total 0.7 mg/dL (0.0-1.0); Blood Urea Nitrogen 9 mg/dL (9-16); Calcium 8.7 mg/dL (8.4-10.2); Carbon Dioxide 25 mmol/L (22-29); Chloride 107 mmol/L (96-108); Creatinine Clr Calc Pharmacy 100.2; Estimated Glomerular Filt Rate > 60; Glucose Random 138 mg/dL (60-115); Potassium 3.7 mmol/L (3.3-5.1); Sodium 138 mmol/L (135-145); Total Protein 6.7 g/dL (6.5-8.0)
[2022-03-09 06:24] LABS: Troponin-I High Sensitivity < 3.5 ng/L (<3.5-17.0)
[2022-03-09 06:33] VITALS: BP 119/81; PULSE 72; RESP 17; TEMP 36.8; O2SAT 98
--- NOTE | 2022-03-09 06:39 | ED.CHESTPAIN ---
HPI - Chest Pain General Chief Complaint: Chest Pain Stated Complaint: chest pressure, nausea, unable to sleep Time Seen by Provider: 03/09/22 05:49 Source: patient Mode of arrival: ambulatory Limitations: no limitations History of Present Illness HPI narrative: Patient comes to the emergency room complaining of palpitations, nausea, unable to sleep, chest pressure. Patient states she has had this in the past. At this time, patient has no chest pain. Patient denies shortness of breath. patient states that she was anxious overnight with the palpitations. At this time, patient has no symptoms. Related Data Previous Rx's Medication Instructions Recorded pyridoxine (vitamin B6) 50 mg 50 mg PO DAILY #30 caps 12/17/21 capsule cefuroxime axetil 250 mg tablet 250 mg PO BID 7 days #14 tabs 01/29/22 Allergies Allergy/AdvReac Type Severity Reaction Status Date / Time aspirin Allergy Intermediate SWELLING Verified 02/15/22 11:40 raspberry Allergy Intermediate Itching Verified 02/15/22 11:40 cherries Allergy Intermediate itching Uncoded 02/14/22 08:52 Review of Systems Review of Systems: Constitutional : No Weight loss, No Fever, No Chills, No Night Sweats, No Fatigue, No Malaise ENT/Mouth : No Hearing loss, No Ear Pain, No Nasal Congestion, No Sinus Pain, No Hoarseness, No sore throat, No Rhinorrhea, No Swallowing Difficulty Eyes: No Eye Pain, No Swelling, No Redness, No Foreign Body, No Discharge, No Vision Changes Cardiovascular : No Chest Pain, no shortness of breath, no orthopnea, no edema, complaining of intermittent palpitations Respiratory : No Cough, No Sputum, No Wheezing, No Smoke Exposure, No Dyspnea Gastrointestinal : No Nausea, No Vomiting, No Diarrhea, No Constipation, No abdominal Pain, No Hematochezia, No Melena Genitourinary : no irregular bleeding, No Dysuria, No Urinary Frequency, No Hematuria, No Urinary Incontinence, No Urgency, No Flank Pain, No Urinary Flow Changes, No Hesitancy Musculoskeletal : No joint pain, No Myalgias, No Joint Swelling Skin : No Skin Lesions, No rash Neuro : No Weakness, No Numbness, No Paresthesias, No Loss of Consciousness, No Dizziness, No Headache Psych : No Anxiety/Panic, No Depression, No SI/HI/AH/VH, No Social Issues, Heme/Lymph: No Bruising, No Bleeding,No Lymphadenopathy Endocrine : No Polyuria, No Polydipsia, No Temperature Intolerance [facility] Past Medical History Medical History Abnormal uterine bleeding (AUB) BMI 45.0-49.9, adult Dyslipidemia Ectopic GERD (gastroesophageal reflux disease) Hematuria Hemorrhoids Insomnia Internal and external hemorrhoids without complication Kidney stone Pure hypercholesterolemia Renal calculi Thiamine deficiency Thickened endometrium Surgical History H/O laparoscopy H/O: hysterectomy Hx of section Hx of cholecystectomy Hx of laparoscopic gastric banding Hx of lithotripsy Family History Family History Mother Osteoporosis Glaucoma Migraine Ovarian cancer Uterine cancer Sister Uterine cancer Maternal Grandfather Diabetes mellitus Paternal Grandmother Diabetes mellitus HTN (hypertension) Maternal Uncle Throat cancer Colon cancer Father No problems noted. Sister No problems noted. Sister No problems noted. Brother No problems noted. Son No problems noted. Social History Social History Housing: Apartment Alcohol intake: former Patient Tobacco Use Status: Never used Tobacco e-Cigarette/Vaping Use: Never Used Second Hand Smoke Exposure: Yes Advance Directives: No service: No 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al status: employed Gender identity: Female Cognitive needs: No Hearing needs: No Vision needs: Yes (glasses) Physical Exam Vital Signs: Vital Signs: Last Vital Signs Temp 98.2 F 03/09/22 06:33 Pulse 72 03/09/22 06:33 Resp 17 03/09/22 06:33 BP 119/81 03/09/22 06:33 Pulse Ox 98 03/09/22 06:33 O2 Del Method 03/09/22 06:33 BMI result Body Mass Index 51.3 Const: Other: Appearance: Alert. Oriented X3. No acute distress. Eyes: Pupils equal, round and reactive to light. ENT: Pharynx normal. Neck: Normal inspection. Neck supple. No lymph nodes noted. No crepitus CVS: Normal heart rate and rhythm. Pulses normal. Normal S1 and S2 Respiratory: No respiratory distress. Breath sounds normal. No Wheezing. No rales Abdomen: Soft and nontender. No rigidity. No distention. Skin: Skin warm and dry. Normal skin color. Normal skin turgor. Extremities: No lower extremity edema. No Lacerations. No Rash Neuro: Oriented X 3. No motor deficit. No sensory deficit. Moving all extremities. No slurred speech. CN 2 through 12 grossly intact Psych: calm, cooperative, normal affect Course Course Course Narrative: Patient's troponin and EKG negative. At this time patient is asymptomatic. Patient started having all her symptoms over 6 hours ago. I discussed with the patient that she would benefit from a stress test which she will discuss with the primary physician. MDM - Chest Pain Lab Data Result diagrams: 03/09/22 05:59 03/09/22 05:59 Labs: Lab Results 03/09/22 03/09/22 03/09/22 Range/Units 05:59 05:59 05:59 WBC 10.7 (4.8-10.8) X10*3/uL RBC 4.98 (4.20-5.50) X10*6/uL Hgb 14.1 (12.0-16.0) g/dl Hct 43.1 (37.0-47.0) % MCV 86.5 (80.0-98.0) fL MCH 28.3 (27.0-33.0) pg MCHC 32.7 (31.0-35.0) g/dl RDW 13.4 (11.0-16.0) % Plt Count 253 (160-400) X10*3/uL MPV 9.7 (9.4-12.3) fL Absolute Nucleated RBC 0.000 (0.0-0.012) X10*3/uL Nucleated RBC % (auto) 0.0 (0.0-0.2) /100WBC Sodium 138 (135-145) mmol/L Potassium 3.7 D (3.3-5.1) mmol/L Chloride 107 (96-108) mmol/L Carbon Dioxide 25 (22-29) mmol/L Anion Gap 10 L (12-20) BUN 9 (9-16) mg/dL Creatinine 0.95 (0.5-1.4) mg/dL Estim Creat Clear Calc 100.2 Estimated GFR > 60 Random Glucose 138 H (60-115) mg/dL Calcium 8.7 D (8.4-10.2) mg/dL Total Bilirubin 0.7 (0.0-1.0) mg/dL AST 24 (5-31) U/L ALT 35 H (0-31) U/L Alkaline Phosphatase 121 H (39-117) U/L Troponin I High Sens < 3.5 (<3.5-17.0) ng/L Total Protein 6.7 (6.5-8.0) g/dL Albumin 3.6 (3.5-5.0) g/dL Discharge Plan Discharge Clinical Impression: Atypical chest pain Patient Disposition: Home, Self-Care Instructions: Chest Pain (ED) Additional Instructions: Please follow-up with your primary care physician tomorrow. If you have any worsening or new symptoms, please return to the emergency room or call 911 Prescriptions: No Action cefuroxime axetil 250 mg tablet 250 mg PO BID 7 Days Qty: 14 0RF pyridoxine (vitamin B6) 50 mg capsule 50 mg PO DAILY Qty: 30 0RF
== END 2022-03-09 06:52 | disposition home or self-care (01) ==
PROVIDERS: Emergency Provider Emergency Medicine; PCP Internal Medicine
DX: R07.89 Other chest pain (principal); R00.2 Palpitations; F41.9 Anxiety disorder, unspecified
CPT/HCPCS: 36415; 80053; 84484; 85027; 93005; 99283

== ENCOUNTER 2022-05-12 14:45 | Outpatient (REF) | payer OTHER, SELFPAY ==
--- NOTE | ~2022-05-12 | US_ITS ---
EXAMINATION: US PELVIS CLINICAL INFORMATION: Follow-up left ovarian cyst. COMPARISON: Pelvic ultrasound 01/29/2022. TECHNIQUE: Ultrasound of the pelvis is performed using both transabdominal and transvaginal transducers along with Doppler. Transvaginal imaging is performed due to inadequate visualization transabdominally. FINDINGS: The uterus is anteverted and anteflexed measuring 9.8 x 5.7 x 5.3 cm. No fibroid noted. The endometrium measures up to 0.8 cm in maximum thickness without discrete focal abnormality. An IUD is visualized in a rather low lying positioning projecting over the cervical canal. Right ovary is absent consistent with surgical history of prior oophorectomy. Previously described complex lesion in the left ovary has resolved. There are now a few simple appearing cysts in the left ovary, largest measuring up to 3.5 cm in diameter. No associated septations, debris or vascularity noted within these thin walled cysts. No free fluid. US/US pelvic and transvaginal IMPRESSION: 1. Simple appearing cysts in the left ovary, almost certainly benign. Recommend a follow-up ultrasound in 6-12 weeks to reassess. 2. Low lying IUD projecting over the endocervical canal. Recommend correlation with physical examination and if indicated repositioning.
== END 2022-05-12 14:46 | disposition home or self-care (01) ==
LOC: HO.US 14:45
PROVIDERS: Visit Provider Obstetrics & Gynecology
DX: N83.299 Other ovarian cyst, unspecified side (principal)
CPT/HCPCS: 76830; 76856

== ENCOUNTER 2022-05-17 10:48 | Outpatient (REF) | payer OTHER, SELFPAY ==
[2022-05-17 18:09] LABS: CT PCR NOT DETECTED (Not Detect.); NG PCR NOT DETECTED (Not Detect.)
== END 2022-05-17 10:49 | disposition home or self-care (01) ==
LOC: HO.LNP 10:48
PROVIDERS: PCP Internal Medicine; Visit Provider Obstetrics & Gynecology
DX: Z30.433 Encounter for removal and reinsertion of intrauterine contraceptive device (principal); Z32.02 Encounter for pregnancy test, result negative
CPT/HCPCS: 58300; 58301; 81025; 87491; 87591; 99212; J7298

== ENCOUNTER 2022-05-18 15:03 | Outpatient (REF) | payer OTHER, SELFPAY ==
--- NOTE | ~2022-05-18 | XR_ITS ---
EXAMINATION: XR KNEE, RIGHT CLINICAL INFORMATION: Pain COMPARISON: None TECHNIQUE: Four views of the right knee. FINDINGS: No acute fracture or dislocation. Joint spaces are maintained. Soft tissues are unremarkable. Trace suprapatellar joint effusion. XR/XR knee RT 3V IMPRESSION: Trace suprapatellar joint effusion. Otherwise unremarkable the radiographs.
--- NOTE | ~2022-05-18 | XR_ITS ---
EXAMINATION: XR ANKLE, RIGHT CLINICAL INFORMATION: Pain COMPARISON: None TECHNIQUE: AP, lateral, and mortise views of the right ankle. FINDINGS: Age indeterminate osseous fragment adjacent to the medial malleolus may reflect sequelae of age-indeterminate avulsion fracture. Joint spaces are maintained. Diffuse soft tissue swelling. No joint effusion. XR/XR ankle RT min 3V IMPRESSION: Age indeterminate osseous fragment adjacent to the medial malleolus may reflect sequelae of age-indeterminate avulsion fracture. Diffuse soft tissue swelling.
--- NOTE | 2022-05-18 15:32 | ECG_ITS ---
Test Reason : chest pain Blood Pressure : / mmHG Vent. Rate : 088 BPM Atrial Rate : 088 BPM P-R Int : 180 ms QRS Dur : 082 ms QT Int : 356 ms P-R-T Axes : 061 -31 049 degrees QTc Int : 430 ms Normal sinus rhythm Left axis deviation Abnormal ECG When compared with ECG of 09-MAR-2022 05:40, No significant change was found Referred By: Milly Prince Electronically Signed By:VÍCTOR RAGSDALE
== END 2022-05-18 15:04 | disposition home or self-care (01) ==
LOC: HO.XRAY 15:03
PROVIDERS: Absent Provider Internal Medicine; PCP Internal Medicine; Visit Provider Nurse Practitioner Family
DX: M25.571 Pain in right ankle and joints of right foot (principal); R07.89 Other chest pain; M25.561 Pain in right knee
CPT/HCPCS: 73562; 73610; 93005

== ENCOUNTER 2022-05-23 13:54 | Outpatient (REF) | payer OTHER, SELFPAY ==
[2022-05-23 14:41] LABS: COVID-19 Test Negative (Negative)
== END 2022-05-23 13:55 | disposition home or self-care (01) ==
LOC: HO.LAB 13:54
PROVIDERS: Visit Provider Internal Medicine
DX: Z20.822 Contact with and (suspected) exposure to COVID-19 (principal)
CPT/HCPCS: 87635; C9803

== ENCOUNTER 2022-06-03 09:01 | Outpatient (REF) | payer OTHER, SELFPAY ==
--- NOTE | ~2022-06-03 | XR_ITS ---
EXAMINATION: XR KNEE, LEFT CLINICAL INFORMATION: Pain status-post fall 2 weeks prior. COMPARISON: None TECHNIQUE: AP, lateral, tunnel, and sunrise views of the left knee. FINDINGS: Bones and soft tissues are normal. No fracture or joint effusion. Alignment is anatomic. Joint spaces are well maintained. No abnormal soft tissue calcification. XR/XR knee LT 4V IMPRESSION: Normal left knee.
== END 2022-06-03 09:02 | disposition home or self-care (01) ==
LOC: HO.XRAY 09:01
PROVIDERS: PCP Internal Medicine; Visit Provider Nurse Practitioner Family
DX: M25.572 Pain in left ankle and joints of left foot (principal)
CPT/HCPCS: 73564

== ENCOUNTER → 2022-06-14 09:32 | Outpatient (BNVA) | payer OTHER, SELFPAY | PROVIDERS: PCP Internal Medicine; Visit Provider Obstetrics & Gynecology | DX: Z30.431 Encounter for routine checking of intrauterine contraceptive device (principal) | CPT/HCPCS: 99212 ==

== ENCOUNTER 2022-06-17 10:21 | Outpatient (REF) | payer OTHER, SELFPAY ==
--- NOTE | ~2022-06-17 | US_ITS ---
EXAMINATION: US RETROPERITONEAL LIMITED (RENAL ONLY) CLINICAL INFORMATION: Calculus of kidney. COMPARISON: CT abdomen and pelvis without contrast 01/29/2022. Ultrasound retroperitoneal limited (renal only) 10/07/2021 and 05/05/2020. X-ray abdomen KUB 05/05/2020 and 10/25/2017. TECHNIQUE: Real-time imaging of the kidneys. FINDINGS: RIGHT KIDNEY: 11.4 x 4.8 x 4.9 cm (SAG x AP x TRV). The kidney is normal in size, contour, and echogenicity. Renal cortical thickness is normal. No focal parenchymal lesions or hydronephrosis. There are echogenic stones in the midpole measuring 0.3 x 0.2 x 0.3 cm and 0.2 x 0.2 x 0.2 cm. There is no caliectasis. LEFT KIDNEY: 12.6 x 5.0 x 5.1 cm (SAG x AP x TRV). The kidney is normal in size, contour, and echogenicity. Renal cortical thickness is normal. No focal parenchymal lesions or hydronephrosis. There is an echogenic stone in the midpole measuring 0.3 x 0.3 x 0.3 cm and 0.3 x 0.2 x 0 cm. No caliectasis or hydronephrosis seen. US/US renal BI IMPRESSION: Bilateral nonobstructive echogenic renal calculi. No caliectasis or hydronephrosis.
== END 2022-06-17 10:22 | disposition home or self-care (01) ==
LOC: HO.US 10:21
DX: N20.0 Calculus of kidney (principal); I10 Essential (primary) hypertension
CPT/HCPCS: 76775

== ENCOUNTER 2022-07-05 13:48 | Emergency (ER) | payer OTHER, SELFPAY ==
[2022-07-05 13:55] VITALS: BP 137/90; PULSE 89; RESP 14; TEMP 36.6; O2SAT 98; BMI 49.6
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
== END 2022-07-05 14:32 | disposition home or self-care (01) ==
LOC: HO.ED 14:19
PROVIDERS: Emergency Provider Emergency Medicine; PCP Internal Medicine
DX: S00.93XA Contusion of unspecified part of head, initial encounter (principal); S70.12XA Contusion of left thigh, initial encounter; V43.52XA Car driver injured in collision with other type car in traffic accident, initial encounter; Y93.89 Activity, other specified; Y92.414 Local residential or business street as the place of occurrence of the external cause; Y99.9 Unspecified external cause status
CPT/HCPCS: 99282; 99283

== ENCOUNTER 2022-07-07 14:15 | Emergency (ER) | payer OTHER, SELFPAY ==
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
[2022-07-07 14:27] VITALS: BP 143/93; PULSE 120; RESP 20; TEMP 37; O2SAT 98; BMI 49.6
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
[2022-07-07] MEDS: HYDROmorphone HCl 1 MG/ML SYRINGE IM (18:08)
[2022-07-07] MEDS: diazePAM 2 MG TABLET 6 MG PO (18:08)
--- NOTE | 2022-07-07 18:12 | PC.NURSE ---
patient sitting up on stretcher, rocking back and forth, holding head and tearful. c/o severe head pain. patient medicated per orders. awaiting CT
[2022-07-07 18:40] VITALS: BP 132/66; PULSE 90; RESP 18; TEMP 36.8; O2SAT 96
[2022-07-07 19:19] VITALS: RESP 16
[2022-07-07 19:57] VITALS: BP 130/65; PULSE 89; RESP 18; TEMP 36.7; O2SAT 97
== END 2022-07-07 20:41 | disposition home or self-care (01) ==
PROVIDERS: Emergency Provider Emergency Medicine; PCP Internal Medicine
DX: R51.9 Headache, unspecified (principal); S09.90XD Unspecified injury of head, subsequent encounter; V49.9XXD Car occupant (driver) (passenger) injured in unspecified traffic accident, subsequent encounter
CPT/HCPCS: 70450; 96372; 99282; 99284; J1170

== ENCOUNTER 2022-07-20 14:13 | Outpatient (REF) | payer OTHER, SELFPAY ==
--- NOTE | ~2022-07-20 | CT_ITS ---
EXAMINATION: CT CERVICAL SPINE WITHOUT CONTRAST CLINICAL INFORMATION: 46-year-old with cervicalgia. COMPARISON: None TECHNIQUE: Volumetric CT imaging of the cervical spine was done with 2-D multiplanar reformatted reconstructions. Limitations related to large body habitus. This CT examination was performed using dose optimization techniques as appropriate, variously including the following: *Automated exposure control *Adjustment of mA and/or kV according to patient size (this includes techniques or standardized protocols for targeted exams where dose is matched to indication/reason for exam; i.e. extremities or head) *Use of iterative reconstruction technique DLP: 544 mGy-cm FINDINGS: There is lordotic reversal centered at C5-C6 with trace anterolisthesis at C3-C4. There is mild, likely chronic anterior wedging of the C5 vertebral body. Otherwise vertebral body heights are well-maintained. The intervertebral disc space heights are well-maintained. There is anterior marginal spondylosis at C4-C5 and C5-C6. Facet joints are intact. There is arthritic change of the anterior atlantodental joint. The craniocervical junction and C1-C2 articulations are intact and aligned. C2-C3: No disc herniation or canal stenosis. No significant DJD or neuroforaminal stenosis. C3-C4: Slight unroofing of the posterior disc margin consistent with slight anterolisthesis at this level with slight flattening of the ventral dural sac without disc herniation. No significant DJD, canal or neuroforaminal stenosis. C4-C5: Mild broad-based posterior disc osteophyte complex noted, with mild flattening of the ventral dural sac without canal stenosis. No significant DJD or neuroforaminal stenosis. C5-C6: Broad-based disc osteophyte complex noted, with flattening of the ventral dural sac. Possible mild ventral cord impingement at this level with mild spinal canal stenosis. Uncinate process spurring is noted, right more than left, with mild to moderate right-sided and mild left-sided neural foraminal stenosis. C6-C7: Soft tissues are obscured in the canal at this level. Cannot exclude disc herniation or cord impingement. No bony canal stenosis. Uncinate process spurring, left more than right is noted with minor facet arthrosis. No significant neural foraminal stenosis. C7-T1: Soft tissues are obscured within the canal at this level. Cannot exclude disc herniation or cord impingement at this level. No bony canal stenosis. No significant DJD or bony neural foraminal stenosis. T1-T2: Limited assessment with soft tissue obscuration of the canal and neural foramina. No bony canal or neuroforaminal stenosis. Extracranial Soft Tissues: There are bilateral pharyngeal tonsillar calcifications. The right internal carotid artery is partially retropharyngeal and course. There is a mildly enlarged medial retropharyngeal lymph node on the left measuring 0.5 x 1.2 cm of indeterminate significance. CT/CT cervical spine wo IV con IMPRESSION: 1. Lordotic reversal centered at C5-C6 with trace anterolisthesis at C3-C4. 2. Disc osteophyte complexes at C4-C5 and C5-C6 with possible mild ventral cord impingement at C5-C6 and mild spinal canal stenosis at C5-C6. Cannot exclude disc herniations or cord impingement at C6-C7 and C7-T1 due to soft tissue obscuration at these levels secondary to body habitus limitations. 3. Mild to moderate right-sided and mild left-sided neural foraminal stenosis at C5-C6. 4. Mildly prominent medial retropharyngeal lymph node noted on the left at the level of C2. Recommend follow-up CT soft tissue neck with contrast in 3 months to reassess. Fleischner guidelines were followed.
== END 2022-07-20 14:14 | disposition home or self-care (01) ==
LOC: HO.CT 14:13
PROVIDERS: Visit Provider Nurse Practitioner Family
DX: M54.2 Cervicalgia (principal)
CPT/HCPCS: 72125

== ENCOUNTER 2022-07-29 12:37 | Outpatient (REF) | payer OTHER, SELFPAY ==
--- NOTE | ~2022-07-29 | CT_ITS ---
EXAMINATION: CT CERVICAL SPINE WITHOUT CONTRAST CLINICAL INFORMATION: Cervicalgia. COMPARISON: 07/20/2022 CT. TECHNIQUE: Volumetric CT imaging of the cervical spine was done with 2-D multiplanar reformatted reconstructions. Note that this repeat exam was performed in error due to a scheduling error and a new order for the previously recommended study has been placed. NO CHARGE. This CT examination was performed using dose optimization techniques as appropriate, variously including the following: *Automated exposure control *Adjustment of mA and/or kV according to patient size (this includes techniques or standardized protocols for targeted exams where dose is matched to indication/reason for exam; i.e. extremities or head) *Use of iterative reconstruction technique DLP: 498 mGy-cm FINDINGS: Review of the exam demonstrates no significant interval change in the findings when compared to the recently reported study, with persistent lordotic reversal at C5-C6 and trace anterolisthesis at C3-C4. Vertebral body heights are unchanged from previous study. No acute fractures. Mild degrees of spondylosis at C4-C5 and C5-C6 are again noted. Facet joints are intact. Craniocervical junction and C1-C2 articulations are intact and aligned. Please refer to the findings in the report of 07/25/2022 for the cervical level findings, which have not changed from the previous study. As noted on the previous study disc herniations cannot be excluded at multiple levels and there is possible spinal cord impingement at C5-C6 asymmetric to the left with artifacts obscuring the soft tissue contents of the canal in the lower cervical regions. Question of mildly enlarged retropharyngeal lymph nodes which warrants further assessment with contrast-enhanced CT of the neck soft tissues. CT/CT cervical spine wo IV con IMPRESSION: As described above, no significant change from previous study. See above for details. Patient will be scheduled for CT soft tissue neck with contrast upon receipt of appropriate order. Fleischner guidelines were followed.
== END 2022-07-29 12:38 | disposition home or self-care (01) ==
LOC: HO.CT 12:37
PROVIDERS: Visit Provider Nurse Practitioner Family
DX: M54.2 Cervicalgia (principal)
CPT/HCPCS: 72125

== ENCOUNTER 2022-08-11 09:41 | Outpatient (REF) | payer OTHER, SELFPAY ==
--- NOTE | ~2022-08-11 | MR_ITS ---
EXAMINATION: MR CERVICAL SPINE WITHOUT CONTRAST CLINICAL INFORMATION: Cervicalgia. COMPARISON: Cervical spine CT 07/29/2022. TECHNIQUE: MRI of the cervical spine was performed using routine sequences without contrast. FINDINGS: The cervical vertebral bodies maintain normal heights. There is straightening of the normal cervical lordosis. There is mild disc height loss at C5-C6. No bone marrow edema is seen. The cervical cord signal appears normal. The imaged intracranial contents appear normal. Enlarged retropharyngeal lymph nodes are seen bilaterally measuring up to 1.5 cm. SPINAL LEVELS: C2-C3: No posterior disc abnormality. No spinal canal or neural foraminal stenosis. C3-C4: No posterior disc abnormality. No spinal canal or neural foraminal stenosis. C4-C5: No posterior disc abnormality. No spinal canal or neural foraminal stenosis. C5-C6: Mild disc bulging with shallow central protrusion. Mild spinal canal stenosis. No neural foraminal stenosis. C6-C7: No posterior disc abnormality. No spinal canal or neural foraminal stenosis. C7-T1: No posterior disc abnormality. No spinal canal or neural foraminal stenosis. MR/MR cervical spine wo con IMPRESSION: 1. At C5-C6 there is mild disc height loss and shallow central protrusion resulting in mild spinal canal stenosis. No significant narrowing of the neural foramina. 2. Incidentally noted enlarged retropharyngeal lymph nodes. The etiology of the lymphadenopathy is indeterminate. Consider further clinical evaluation.
== END 2022-08-11 09:42 | disposition home or self-care (01) ==
LOC: HO.MRI 09:41
PROVIDERS: Visit Provider Nurse Practitioner Family
DX: M54.2 Cervicalgia (principal)
CPT/HCPCS: 72141

== ENCOUNTER 2022-08-12 09:25 | Outpatient (REF) | payer OTHER, SELFPAY ==
--- NOTE | ~2022-08-12 | XR_ITS ---
EXAMINATION: XR KNEE AP STANDING XR KNEE, LEFT CLINICAL INFORMATION: Pain COMPARISON: None TECHNIQUE: AP bilateral standing view of the knees was obtained. 1 view left knee FINDINGS: AP BILATERAL KNEE: The medial and lateral compartment joint space is normal. The alignment is normal. No bony erosive changes or loose bodies seen. No soft tissue swelling or soft tissue calcification. LEFT KNEE: The patellofemoral compartment joint space is preserved. No bony erosive changes or loose body seen. There is small enthesophyte along the medial patella. XR/XR knee standing BI IMPRESSION: Unremarkable AP bilateral knee exam. Small enthesophyte along the medial patella. No visible acute fracture or subluxation.
--- NOTE | ~2022-08-12 | XR_ITS ---
EXAMINATION: XR KNEE AP STANDING XR KNEE, LEFT CLINICAL INFORMATION: Pain COMPARISON: None TECHNIQUE: AP bilateral standing view of the knees was obtained. 1 view left knee FINDINGS: AP BILATERAL KNEE: The medial and lateral compartment joint space is normal. The alignment is normal. No bony erosive changes or loose bodies seen. No soft tissue swelling or soft tissue calcification. LEFT KNEE: The patellofemoral compartment joint space is preserved. No bony erosive changes or loose body seen. There is small enthesophyte along the medial patella. XR/XR knee LT 1V IMPRESSION: Unremarkable AP bilateral knee exam. Small enthesophyte along the medial patella. No visible acute fracture or subluxation.
== END 2022-08-12 09:26 | disposition home or self-care (01) ==
LOC: HO.HOSX 09:25
PROVIDERS: Visit Provider Physician Assistant
DX: Z13.89 Encounter for screening for other disorder (principal)

== ENCOUNTER → 2022-08-15 14:02 | Outpatient (BNVA) | payer OTHER, SELFPAY | PROVIDERS: PCP Internal Medicine; Visit Provider Physician Assistant | DX: S80.02XA Contusion of left knee, initial encounter (principal); S80.01XA Contusion of right knee, initial encounter; M25.562 Pain in left knee | CPT/HCPCS: 73560; 73565; 99202 ==

== ENCOUNTER 2022-08-29 09:35 | Emergency (ER) | payer OTHER, SELFPAY ==
[2022-08-29 09:41] VITALS: BP 130/88; PULSE 117; RESP 20; TEMP 37.2; O2SAT 95; BMI 49.6
[2022-08-29 10:07] LABS: COVID-19 Test Positive (Negative); IDNOW Serial# 55D5AD1C
[2022-08-29 10:12] LABS: IDNOW Serial# 9DB6401D; Influenza A Negative (Negative); Influenza B2 Negative (Negative)
[2022-08-29 10:12] LABS: Strep A Nucleic Acid Negative (Negative)
--- NOTE | 2022-08-29 11:35 | ECG_ITS ---
Test Reason : CHEST PAIN Blood Pressure : / mmHG Vent. Rate : 103 BPM Atrial Rate : 103 BPM P-R Int : 182 ms QRS Dur : 080 ms QT Int : 328 ms P-R-T Axes : 061 -29 049 degrees QTc Int : 429 ms Sinus tachycardia Otherwise normal ECG When compared with ECG of 18-MAY-2022 15:30, No significant change was found Referred By: Kinga Mckeon Electronically Signed By:Jhon Castro
[2022-08-29 13:39] VITALS: BP 139/89; PULSE 90; RESP 17; TEMP 36.9; O2SAT 95
--- NOTE | 2022-08-29 13:56 | ED.URI ---
HPI - URI/Sore Throat General Chief Complaint: Upper Respiratory Symptoms Stated Complaint: Sore throat/Cough Time Seen by Provider: 08/29/22 10:46 Source: patient Mode of arrival: ambulatory History of Present Illness HPI Narrative: 46-year-old female with a past medical history of HLD, GERD, insomnia, thiamine deficiency, presenting to the ED complaining of productive cough and sore throat since yesterday. Denies SOB, CP, abdominal pain, pedal edema, nausea/vomiting, ear pain, recent travel, sick contacts MD elicited complaint: cough and sore throat Onset (ago): hour(s) Related Data Home Medications Medication Instructions Recorded Confirmed melatonin 10 mg capsule 10 mg PO BEDTIME PRN 04/11/22 08/08/22 levonorgestrel 20 mcg/24 hours (8 intrauterine 05/17/22 08/08/22 yrs) 52 mg intrauterine device (Mirena) naproxen 500 mg tablet 500 mg PO BID PRN pain 07/15/22 08/08/22 Previous Rx's Medication Instructions Recorded diazepam 5 mg tablet (Valium) 5 mg PO TID PRN muscle spasm #10 07/07/22 tabs amitriptyline 10 mg tablet 10 mg PO BEDTIME 30 days #30 tabs 07/25/22 azithromycin 250 mg tablet See Rx Instructions PO .COMPLEX #6 08/29/22 tabs fluticasone propionate 50 2 spray intranasal DAILY #16 grams 08/29/22 mcg/actuation nasal spray,suspension (Flonase Allergy Relief) Allergies Allergy/AdvReac Type Severity Reaction Status Date / Time pollard Allergy Intermediate Itching Verified 08/15/22 14:23 raspberry Allergy Intermediate Itching Verified 08/15/22 14:23 Review of Systems Review of Systems: Constitutional: No Fever, No Chills ENT/Mouth: No Ear Pain, No Nasal Congestion, No Sinus Pain, No Hoarseness, + sore throat, No Rhinorrhea, No Swallowing Difficulty Cardiovascular: No Chest Pain, No SOB Respiratory: + Cough, No Sputum, No Wheezing Gastrointestinal: No Nausea, No Vomiting, No Diarrhea, No Constipation, No Abdominal pain Genitourinary: No Dysuria, No Urinary Frequency, No Hematuria, No Flank Pain Musculoskeletal: No joint pain, No Myalgias, No Joint Swelling Skin: No Skin Lesions, No rash Neuro: No Weakness, No Numbness, No Paresthesias Yes all other systems are reviewed and are negative Constitutional: Constitutional: Reports as per [facility] Past Medical History Attestation statement: The following information was validated with the patient. Medical History Abnormal uterine bleeding (AUB) Blurry vision, left eye BMI 45.0-49.9, adult Cervical spine pain Dyslipidemia Ectopic GERD (gastroesophageal reflux disease) Hematuria Hemorrhoids Insomnia Internal and external hemorrhoids without complication Kidney stone Pure hypercholesterolemia Renal calculi Thiamine deficiency Thickened endometrium Surgical History H/O laparoscopy Hx of section Hx of cholecystectomy Hx of laparoscopic gastric banding Hx of lithotripsy Family History Family History Mother Osteoporosis Glaucoma Migraine Ovarian cancer Uterine cancer Sister Uterine cancer Maternal Grandfather Diabetes mellitus Paternal Grandmother Diabetes mellitus HTN (hypertension) Maternal Uncle Throat cancer Father HIV (human immunodeficiency virus infection) Sister Heart abnormality Sister Heart abnormality Epilepsy Brother No problems noted. Son No problems noted. Social History Social History Housing: Apartment Alcohol intake: former Patient Tobacco Use Status: Never used Tobacco e-Cigarette/Vaping Use: Never Used Second Hand Smoke Exposure: Yes Advance Directives: No Advance Directives Information Provided: No service: No 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al status: employed Gender identity: Female Cognitive needs: No Hearing needs: No Vision needs: Yes (glasses) Physical Exam Vital Signs: Vital Signs: Last Vital Signs Temp 98.5 F 08/29/22 13:39 Pulse 90 08/29/22 13:39 Resp 17 08/29/22 13:39 BP 139/89 08/29/22 13:39 Pulse Ox 95 08/29/22 13:39 O2 Del Method 08/29/22 13:39 BMI result Body Mass Index 49.6 Const: General: cooperative, healthy appearing and no acute distress Orientation/consciousness: patient oriented x3 Limitations: no limitations HEENT: Head: Yes normal to inspection and Yes atraumatic Ears: hearing grossly normal bilaterally General nose exam: Normal external nose present Face and sinus: Yes normal facial exam Mouth: Normal oral and palatal mucosa present Throat: Yes tonsils normal, Yes uvula midline, No peritonsillar mass, Yes posterior oropharynx abnormal (Mild erythema), No uvula laterally displaced and No uvular edema Eyes: General: appearance normal, both eyes and all related structures EOM: EOMs intact bilaterally Neck: Neck: Yes normal visual inspection and Yes no meningeal signs Resp: Effort & Inspection: normal respiratory effort and no respiratory distress Auscultation: clear to auscultation bilaterally, no crackles, no rales and no rhonchi Cardio: Rate: regular rate and tachycardic Heart sounds: S1 normal heart sound present and S2 normal heart sound present GI: Inspection: Yes normal to inspection Skin: Rashes: no rashes Wounds: no wounds Neuro: General: patient oriented x3, tone normal and no meningeal signs Gait exam (Neuro): Normal gait present Extrem: General: Yes normal to inspection, Yes no pedal edema and Yes no calf tenderness Course Course Course Narrative: -COVID-19 positive XR chest 1V IMPRESSION: Minimal streaky left midlung opacity likely atelectasis. >> Results discussed with patient including worrisome signs and symptoms and strict return precautions, and when to return to the emergency department. They verbalized understanding and feel safe for discharge at this time. Medications Administered Discontinued Medications Generic Name Dose Route Start Last Admin Trade Name Freq PRN Reason Stop Dose Admin Ibuprofen 600 mg 08/29/22 11:35 08/29/22 11:41 Ibuprofen 600 Mg Tablet PO 08/29/22 11:36 600 mg ONCE ONE Administration Medical Decision Making Medical Decision Making [facility] Narrative: 46-year-old female with a past medical history of HLD, GERD, insomnia, thiamine deficiency, presenting to the ED complaining of productive cough and sore throat since yesterday. On exam low-grade fever, tachycardia likely from fever, NAD, nontoxic appearing, mild posterior or pharyngeal erythema, no exudate or tonsillar swelling, no pedal edema, lungs CTA. Concern for viral illness vs pharyngitis. Low suspicion for ACS/PE or pneumonia Plan: COVID-19/influenza/RSV testing, CXR Differential Diagnosis Differential Diagnoses: The differential diagnosis associated with the presentation includes as above Lab Data Labs: Lab Results 08/29/22 08/29/22 08/29/22 Range/Units 09:44 09:44 09:45 COVID-19 (JABIER) Positive A (Negative) COVID-19 Clin Com See Note Influenza Type A (LEXIS) Negative (Negative) Influenza Type B (LEXIS) Negative (Negative) Influenza A & B Note See Note S. pyogenes GrpA LEXIS Negative (Negative) Discharge Plan Discharge Clinical Impression: COVID-19 Patient Disposition: Home, Self-Care Instructions: COVID-19 (Coronavirus Disease 2019) (ED) Additional Instructions: Your x-ray shows atelectasis, azithromycin as an antibiotic take as prescribed. Flonase is a nasal decongestion. Take Tylenol and Motrin. Rest. At this time you will be okay for discharge. Please self isolate for 5-10 days. Do not expose yourself to others. You may not go to work or school. Please continue to follow cold instructions and wash your hands frequently. You may take Tylenol / Motrin as directed on the bottle for pain or fever. If you have constant or persistent shortness of breath, fever unresolved with medications, chest pain, or your unable to eat or drink please return to the ED CDC Guidelines for home isolation: - Stay away from others - WEAR A MASK if you are sick AND STAY HOME - Cover your mouth and nose with a tissue when you cough or sneeze. Dispose of tissues in a lined trash can and wash your hands immediately with soap and water for at least 20 seconds. If soap and water are not available, clean hands with alcohol-based hand burnishing machine operator that contains at least 60% alcohol. - Clean your hands often with soap and water for at least 20 seconds - Avoid touching your eyes, nose and mouth with unwashed hands - Do not share dishes, drinking glasses, cups, eating utensils, towels, or bedding with other people in your home. After using these items, wash them thoroughly with soap and water or put in the cork mixer. - Clean high-touch surfaces in your isolation area ( sick room and bathroom) every day; let a caregiver clean and disinfect high-touch surfaces in other areas of the home. Clean the area or item with soap and water or another detergent if it is dirty. Then, use a household disinfectant. - Limit contact with pets and animals: If you must care for a pet, wash your hands before and after interacting with them) Piedra radiograf?a muestra atelectasia, azitromicina rudy antibi?kash, tome seg?n lo prescrito. Flonase es un descongestionante nasal. Yanet Tylenol y Motrin. [place]. En cullen momento estar? jh para el elizabeth. A?slese por 5-10 d?as. No te expongas a los dem?s. Es posible que no vaya al trabajo ni a la escuela. Contin?e siguiendo las instrucciones en fr?o y l?vese las bernard con frecuencia. Puede brandon Tylenol/Motrin rudy se indica en el frasco para el dolor o la fiebre. Si tiene dificultad para respirar huyen o persistente, fiebre que no se resuelve con medicamentos, dolor en el pecho o no puede comer o beber, regrese al servicio de urgencias. [place]autas de los CDC para el aislamiento en el hogar: - Mant?ngase alejado de los dem?s. - USE DARY MASCARILLA si est? enfermo Y QU?DESE EN CASA - C?brase la boca y la nariz con un pa?uelo desechable al toser o estornudar. Deseche los pa?uelos en un bote de basura forrado y l?vese las bernard inmediatamente con agua y jab?n sherly al menos 20 segundos. Si no hay agua y jab?n disponibles, l?vese las bernard con un desinfectante para bernard a base de alcohol que contenga al menos un 60 % de alcohol. - L?vese las bernard con frecuencia con agua y jab?n sherly al menos 20 segundos. - Evite tocarse los ojos, la nariz y la boca con las bernard sin vanita - No comparta platos, vasos, tazas, utensilios para comer, toallas o ropa de cama con otras personas en piedra hogar. Despu?s de usar estos art?culos, l?velos jh con agua y jab?n o col?quelos en el lav[place]ajillas. - Limpie las superficies de alto contacto en piedra ?taylor de aislamiento ( cuarto de enfermos y ba?o) todos los d?as; permita que un cuidador limpie y desinfecte las superficies de alto contacto en otras ?reas del hogar. Limpie el ?taylor o art?culo con agua y jab?n u otro detergente si est? sucio. Luego, use un desinfectante dom?stico. - Limite el contacto con mascotas y animales: si debe cuidar dary mascota, l?vese las bernard antes y despu?s de interactuar con ellos) Prescriptions: New azithromycin 250 mg tablet See Rx Instructions .ROUTE .COMPLEX Qty: 6 0RF Rx Instructions: take 500 mg today (day 1), then 250 mg for 4 days (days 2-5) fluticasone propionate [Flonase Allergy Relief] 50 mcg/actuation spray,suspension 2 spray intranasal DAILY Qty: 16 0RF Rx Instructions: administer into each nostril No Action diazepam [Valium] 5 mg tablet 5 mg PO TID PRN (Reason: muscle spasm) Qty: 10 0RF naproxen 500 mg tablet 500 mg PO BID PRN (Reason: pain) melatonin 10 mg capsule 10 mg PO BEDTIME PRN amitriptyline 10 mg tablet 10 mg PO BEDTIME 30 Days Qty: 30 1RF Mirena 20 mcg/24 hours (7 yrs) 52 mg intrauterine device intrauterine Referrals: Milly Chambers MD [Primary Care Provider] - 10 days Print Language: Indian
== END 2022-08-29 14:09 | disposition home or self-care (01) ==
PROVIDERS: Emergency Provider Emergency Medicine; PCP Internal Medicine
DX: U07.1 COVID-19 (principal); J02.9 Acute pharyngitis, unspecified; R73.03 Prediabetes; E78.5 Hyperlipidemia, unspecified; E66.9 Obesity, unspecified; Z68.42 Body mass index [BMI] 45.0-49.9, adult
CPT/HCPCS: 71045; 87502; 87635; 87651; 93005; 99283; 99284

== ENCOUNTER → 2022-09-06 09:26 | Outpatient (BNVA) | payer OTHER, SELFPAY | PROVIDERS: PCP Internal Medicine; Visit Provider Nurse Practitioner Family | DX: G44.309 Post-traumatic headache, unspecified, not intractable (principal); G44.85 Primary stabbing headache | CPT/HCPCS: 99212 ==

== ENCOUNTER → 2022-09-29 13:28 | Outpatient (BNVA) | payer OTHER, SELFPAY | PROVIDERS: PCP Internal Medicine; Visit Provider Physician Assistant | DX: S80.01XD Contusion of right knee, subsequent encounter (principal); S80.02XD Contusion of left knee, subsequent encounter | CPT/HCPCS: 99212 ==

== ENCOUNTER 2022-10-03 09:21 | Outpatient (REF) | payer OTHER, SELFPAY ==
--- NOTE | ~2022-10-03 | XR_ITS ---
EXAMINATION: XR CHEST 2 VIEWS CLINICAL INFORMATION: Dyspnea. COMPARISON: Prior chest radiographs, most recently 08/29/2022. TECHNIQUE: Frontal and lateral views of the chest were obtained. FINDINGS: The heart, great vessels, pulmonary vasculature and mediastinum are normal. The lungs show no focal infiltrate, effusion or pneumothorax. There is mild chronic left base linear scar/subsegmental atelectasis. There is no acute osseous abnormality. There has been a prior gastric banding procedure. XR/XR chest 2V IMPRESSION: No active cardiopulmonary disease. There is no significant interim change.
== END 2022-10-03 09:22 | disposition home or self-care (01) ==
LOC: HO.XRAY 09:21
PROVIDERS: PCP Internal Medicine; Visit Provider Internal Medicine
DX: R06.00 Dyspnea, unspecified (principal)
CPT/HCPCS: 71046

== ENCOUNTER 2022-10-28 05:23 | Emergency (ER) | payer OTHER, SELFPAY ==
--- NOTE | ~2022-10-28 | CT_ITS ---
EXAMINATION: CT ABDOMEN AND PELVIS WITHOUT CONTRAST CLINICAL INFORMATION: Right flank pain. Hematuria. COMPARISON: 01/21/2022 TECHNIQUE: Multidetector volumetric imaging was performed from the superior aspect of the liver through the pubic symphysis. Sagittal and coronal reformatted images were obtained on the technologist's workstation. This CT examination was performed using dose optimization techniques as appropriate, variously including the following: *Automated exposure control *Adjustment of mA and/or kV according to patient size (this includes techniques or standardized protocols for targeted exams where dose is matched to indication/reason for exam; i.e. extremities or head) *Use of iterative reconstruction technique DLP: 1238 mGy-cm FINDINGS: LUNG BASES: The visualized lung bases are unremarkable. LIVER, GALLBLADDER, AND BILIARY TREE: Liver normal in size, contour and morphology. Diffuse hepatic steatosis. No focal liver lesions. No biliary dilatation. Cholecystectomy. PANCREAS: Unremarkable. SPLEEN: Unremarkable. ADRENAL GLANDS: Unremarkable. KIDNEYS AND URETERS: The kidneys are normal in size, shape, and attenuation. There are bilateral nonobstructive intrarenal calculi numbering within the left kidney and 2 within the right kidney ranging in size from punctate to 4 mm on the left and 1 to 2 mm on the right. No hydronephrosis, hydroureter or ureteral calculus.. No perinephric stranding. BLADDER: Unremarkable. GASTROINTESTINAL TRACT: Laparoscopic esophagogastric band appropriately positioned. A small pouch was performed above the band. The small and large bowel are unremarkable. The appendix is unremarkable. ABDOMINAL WALL: No significant hernia is appreciated. LYMPH NODES: Normal. VASCULAR: Unremarkable. PELVIC VISCERA: Uterus contains an IUD. Ovaries unremarkable. OSSEOUS STRUCTURES: No acute or suspicious osseous abnormalities. CT/CT abdomen pelvis wo IV con IMPRESSION: * Bilateral nonobstructive intrarenal calculi. * No ureteral calculi or hydronephrosis. * Hepatic steatosis. * Cholecystectomy.
[2022-10-28 06:04] VITALS: BP 127/79; PULSE 78; RESP 16; TEMP 36.7; O2SAT 100; BMI 51.3
[2022-10-28 06:59] LABS: Hematocrit 48.1 % (37.0-47.0); Mean Corpuscular HGB Conc 33.3 g/dl (31.0-35.0); Mean Corpuscular Hemoglobin 29.9 pg (27.0-33.0); Mean Corpuscular Volume 89.7 fL (80.0-98.0); Mean Platelet Volume 10.1 fL (9.4-12.3); Platelet Count 267 X10*3/uL (160-400); Red Blood Count 5.36 X10*6/uL (4.20-5.50); Red Cell Distribution Width 13.1 % (11.0-16.0); White Blood Count 10.4 X10*3/uL (4.8-10.8)
[2022-10-28 07:00] LABS: Appearance Urine Clear; Color Urine Yellow; Glucose Urine UA >=1000 mg/dL (Negative); Leukocyte Esterase Urine Negative (Negative); Nitrite Urine Negative (Negative); PH 5.5 (5.0-9.0); Specific Gravity - Urine 1.025 (1.005-1.025); UMIC TRIGGER UACC YES; Urine Blood Moderate (2+) (Negative); Urine Ketones Negative (Negative); Urine Protein Negative (Neg-Trace)
[2022-10-28 07:03] LABS: UPreg QC Valid YES; Urine Pregnancy NEGATIVE (NEGATIVE)
[2022-10-28 07:14] LABS: Alanine Aminotransferase 37 U/L (0-31); Albumin Level 3.6 g/dL (3.5-5.0); Alkaline Phosphatase 136 U/L (39-117); Anion Gap 9 (12-20); Aspartate Amino Transferase 19 U/L (5-31); Bilirubin Direct < 0.2 mg/dL (0.0-0.5); Bilirubin Total 0.4 mg/dL (0.0-1.0); Blood Urea Nitrogen 11 mg/dL (9-16); Calcium 9.5 mg/dL (8.4-10.2); Carbon Dioxide 28 mmol/L (22-29); Chloride 107 mmol/L (96-108); Creatinine Clr Calc Pharmacy 105.8; Estimated Glomerular Filt Rate > 60; Glucose Random 254 mg/dL (60-115); Lipase 59 U/L (8-78); Potassium 4.3 mmol/L (3.3-5.1); Sodium 140 mmol/L (135-145); Total Protein 6.8 g/dL (6.5-8.0)
[2022-10-28 07:15] LABS: Bacteria Urine Trace (None Seen); Hyaline Casts Urine 0-2 /LPF (0-2); RBC Urine 0-2 /HPF (0-2); WBC Urine 0-5 /HPF (0-5)
--- NOTE | 2022-10-28 07:58 | ED_ITS ---
HPI - Abdominal Pain General Chief Complaint: Abdominal Pain Stated Complaint: Flank pain Time Seen by Provider: 10/28/22 07:57 Source: patient, old records reviewed and flow specialist Mode of arrival: ambulatory Limitations: no limitations and language barrier History of Present Illness HPI narrative: 46 yo Lebanese speaking female with history of obesity, kidney stones, anxiety, HLD, prediabetes, UTI, GERD who presents to the ER for evaluation of 1 week of worsening right sided flank pain for the last one week. The pain is primarily in her right lower back inside. It is constant but waxes and wanes. It is wo rse when she lays down on her right side. She denies any radiation of the pain. She denies any nausea, vomiting, diarrhea, constipation, abdominal pain, urinary symptoms. She states she has her menses so she is unsure if she has blood in her urine. She denies any injuries. MD elicited complaint: flank pain Pertinent past history: kidney stones Onset (ago): week(s) (1) Pain Consistency: constant Location: R flank Severity: moderate Quality: aching Radiation: none Migration to: no migration Exacerbating factors: movement Relieving factors: nothing Associated symptoms: denies other symptoms Treatments prior to arrival: NSAIDs Related Data Home Medications Medication Instructions Recorded Confirmed melatonin 10 mg capsule 10 mg PO BEDTIME PRN 04/11/22 09/19/22 levonorgestrel 20 mcg/24 hours (8 intrauterine 05/17/22 09/19/22 yrs) 52 mg intrauterine device (Mirena) naproxen 500 mg tablet 500 mg PO BID PRN pain 07/15/22 09/19/22 Previous Rx's Medication Instructions Recorded fluticasone propionate 50 2 spray intranasal DAILY #16 grams 08/29/22 mcg/actuation nasal spray,suspension (Flonase Allergy Relief) amitriptyline 10 mg tablet 10 mg PO BEDTIME 30 days #30 tabs 09/06/22 indomethacin 25 mg capsule 25 mg PO TID PRN stabbing headache 09/06/22 30 days #30 caps omeprazole 40 mg capsule,delayed 40 mg PO DAILY 90 days #90 caps 10/08/22 release meloxicam 15 mg tablet 15 mg PO DAILY #30 tabs 10/27/22 cyclobenzaprine 10 mg tablet 10 mg PO TID PRN muscle spasm #14 10/28/22 tabs lidocaine 5 % topical patch 1 patch topical DAILY #15 ea 10/28/22 Allergies Allergy/AdvReac Type Severity Reaction Status Date / Time pollard Allergy Intermediate Itching Verified 09/29/22 13:40 raspberry Allergy Intermediate Itching Verified 09/29/22 13:40 Review of Systems Review of Systems Yes all other systems are reviewed and are negative [facility] Past Medical History Medical History Abnormal uterine bleeding (AUB) Blurry vision, left eye BMI 45.0-49.9, adult Cervical spine pain Dyslipidemia Ectopic GERD (gastroesophageal reflux disease) Hematuria Hemorrhoids Insomnia Internal and external hemorrhoids without complication Kidney stone Pure hypercholesterolemia Renal calculi Thiamine deficiency Thickened endometrium Surgical History H/O laparoscopy Hx of section Hx of cholecystectomy Hx of laparoscopic gastric banding Hx of lithotripsy Family History Family History Mother Osteoporosis Glaucoma Migraine Ovarian cancer Uterine cancer Sister Uterine cancer Maternal Grandfather Diabetes mellitus Paternal Grandmother Diabetes mellitus HTN (hypertension) Maternal Uncle Throat cancer Father HIV (human immunodeficiency virus infection) Sister Heart abnormality Sister Heart abnormality Epilepsy Brother No problems noted. Son No problems noted. Social History Social History Housing: Apartment Alcohol intake: never Patient Tobacco Use Status: Never used Tobacco Smoked in Last 30 Days: No e-Cigarette/Vaping Use: Never Used Second Hand Smoke Exposure: Yes Use of substances other than those prescribed or required for medical reasons: No Advance Directives: No Advance Directives Information Provided: No Patient : No service: No 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al status: employed Gender identity: Female Cognitive needs: No Hearing needs: No Vision needs: Yes (glasses) Physical Exam ED Vital Signs: Vital Signs - 24 hr 10/28/22 06:04 10/28/22 09:44 Temperature 98.0 F 98 F Pulse Rate 78 77 Respiratory Rate 16 15 Blood Pressure 127/79 125/83 Pulse Oximetry 100 97 Oxygen Delivery Method Room Air Room Air BMI result Body Mass Index 51.3 Appearance: Alert. Oriented X3. No acute distress. Eyes: Pupils equal, round and reactive to light. ENT: Pharynx normal. Neck: Normal inspection. Neck supple. CVS: Normal heart rate and rhythm. Pulses normal. Respiratory: No respiratory distress. Breath sounds normal. Abdomen: Obese, Soft and nontender. +BS x4. Right lower back with soft tissue tenderness and palpable spasm, no ecchymosis. no CVA tenderness Skin: Skin warm and dry. Normal skin color. Normal skin turgor. No rashes. Extremities: No lower extremity edema. Neuro: Oriented X 3. No motor deficit. No sensory deficit. Course Course Course Narrative: 46-year-old obese female presents the ER for evaluation of right-sided flank pain. History of kidney stones. There is blood in her urine, on able to differentiate whether vaginal or urethral. Will get CT scan for further evaluation. She is comfortable. Labs are unremarkable. Reevaluation(s) Reevaluation #1: CT scan without any acute causes of her pain. Given exam and clinical presentation most likely muscular pain. Will treat accordingly. 1st pressman on web press used to discuss results, exam, plan and recommending outpatient follow-up to ensure resolution. Patient agrees with plan and is stable for discharge home Medical Decision Making Medical Decision Making MDM Narrative: 46-year-old female presented with right-sided flank pain. Tender to touch. No CVA tenderness. Doubt pyelonephritis or kidney stone however given hematuria CT scan was done that is not showing any evidence of obstructing kidney stone or ureteral stone. UA without infection. Labs unremarkable. Will discharge home with treatment for muscle pain and spasm. Encouraged follow-up with her PCP. Stable for discharge home. Differential Diagnosis Differential Diagnoses: The differential diagnosis associated with the presen tation includes Kidney stone, pyelonephritis, UTI, referred pain from acute and ascites, diverticulitis, muscular pain, inflammatory disorder, trauma Lab Data MDM Lab Attestation statement: I reviewed the patient's lab results. Lab workup showing polycythemia with hematocrit of 48, hyperglycemia with glucose 254. Normal renal function. No leukocytosis. 10/28/22 06:46 10/28/22 06:46 Labs: Lab Results 10/28/22 10/28/22 10/28/22 Range/Units 06:46 06:46 06:50 WBC 10.4 (4.8-10.8) X10*3/uL RBC 5.36 (4.20-5.50) X10*6/uL Hgb 16.0 (12.0-16.0) g/dl Hct 48.1 H (37.0-47.0) % MCV 89.7 (80.0-98.0) fL MCH 29.9 (27.0-33.0) pg MCHC 33.3 (31.0-35.0) g/dl RDW 13.1 (11.0-16.0) % Plt Count 267 (160-400) X10*3/uL MPV 10.1 (9.4-12.3) fL Absolute Nucleated RBC 0.000 (0.0-0.012) X10*3/uL Nucleated RBC % (auto) 0.0 (0.0-0.2) /100WBC Sodium 140 (135-145) mmol/L Potassium 4.3 (3.3-5.1) mmol/L Chloride 107 (96-108) mmol/L Carbon Dioxide 28 (22-29) mmol/L Anion Gap 9 L (12-20) BUN 11 (9-16) mg/dL Creatinine 0.90 (0.5-1.4) mg/dL Estim Creat Clear Calc 105.8 Estimated GFR > 60 Random Glucose 254 H (60-115) mg/dL Calcium 9.5 D (8.4-10.2) mg/dL Total Bilirubin 0.4 (0.0-1.0) mg/dL Direct Bilirubin < 0.2 (0.0-0.5) mg/dL AST 19 (5-31) U/L ALT 37 H (0-31) U/L Alkaline Phosphatase 136 H (39-117) U/L Total Protein 6.8 (6.5-8.0) g/dL Albumin 3.6 (3.5-5.0) g/dL Lipase 59 (8-78) U/L Urine Color Yellow Urine Appearance Clear Urine pH 5.5 (5.0-9.0) Ur Specific [place] 1.025 (1.005-1.025) Urine Protein Negative (Neg-Trace) mg/dL Urine Glucose (UA) >=1000 H (Negative) mg/dL Urine Ketones Negative (Negative) mg/dL Urine Blood Moderate (2+) H (Negative) Urine Nitrite Negative (Negative) Ur Leukocyte Esterase Negative (Negative) Urine RBC 0-2 (0-2) /HPF Urine WBC 0-5 (0-5) /HPF Ur Squamous Epith Cells 3-5 (0-2) /HPF Urine Bacteria Trace (None Seen) Hyaline Casts 0-2 (0-2) /LPF Urine Test (NEGATIVE) 10/28/22 Range/Units 06:50 WBC (4.8-10.8) X10*3/uL RBC (4.20-5.50) X10*6/uL Hgb (12.0-16.0) g/dl Hct (37.0-47.0) % MCV (80.0-98.0) fL MCH (27.0-33.0) pg MCHC (31.0-35.0) g/dl RDW (11.0-16.0) % Plt Count (160-400) X10*3/uL MPV (9.4-12.3) fL Absolute Nucleated RBC (0.0-0.012) X10*3/uL Nucleated RBC % (auto) (0.0-0.2) /100WBC Sodium (135-145) mmol/L Potassium (3.3-5.1) mmol/L Chloride (96-108) mmol/L Carbon Dioxide (22-29) mmol/L Anion Gap (12-20) BUN (9-16) mg/dL Creatinine (0.5-1.4) mg/dL Estim Creat Clear Calc Estimated GFR Random Glucose (60-115) mg/dL Calcium (8.4-10.2) mg/dL Total Bilirubin (0.0-1.0) mg/dL Direct Bilirubin (0.0-0.5) mg/dL AST (5-31) U/L ALT (0-31) U/L Alkaline Phosphatase (39-117) U/L Total Protein (6.5-8.0) g/dL Albumin (3.5-5.0) g/dL Lipase (8-78) U/L Urine Color Urine Appearance Urine pH (5.0-9.0) Ur Specific [place] (1.005-1.025) Urine Protein (Neg-Trace) mg/dL Urine Glucose (UA) (Negative) mg/dL Urine Ketones (Negative) mg/dL Urine Blood (Negative) Urine Nitrite (Negative) Ur Leukocyte Esterase (Negative) Urine RBC (0-2) /HPF Urine WBC (0-5) /HPF Ur Squamous Epith Cells (0-2) /HPF Urine Bacteria (None Seen) Hyaline Casts (0-2) /LPF Urine Test NEGATIVE (NEGATIVE) Independent Interpretation I performed an independent interpretation of an: CT Scan Interpretation: CT scan independently reviewed. No obstructing kidney stones or ureteral stones seen. Agree with radiologist's reading Radiology Impression Discussion of test interpretation with radiology: I have reviewed the radiolog ist's reading. Radiologist Impression: CT/CT abdomen pelvis wo IV con IMPRESSION: *? Bilateral nonobstructive intrarenal calculi. *? No ureteral calculi or hydronephrosis. *? Hepatic steatosis. *? Cholecystectomy. External Record Review External record reviewed: Office record, Outpatient record, Prior outpatient labs and Prior outpatient radiology Prescription Management I considered prescription management with: Pain Medication and Antibiotic Will discharge with anti-inflammatories and muscle relaxers. Antibiotics not indicated today. Chronic Conditions Patient?s care impacted by: Other (Morbid obesity) Critical Care Time Critical Care Time Critical Care Time: No Discharge Plan Discharge Clinical Impression: Muscle strain Patient Disposition: Home, Self-Care Instructions: Muscle Strain (ED) Additional Instructions: Your lab workup today was unremarkable. Your urine test did not show any signs of infection. Your CT scan today did not show any causes of your pain It is most likely muscular pain Take the prescribed medications as directed Use ice or heat to the area as needed for pain Follow up with your doctor If you develop new or worsening symptoms call 911 or come back to the ER for fu rther evaluation. Tu an?lisis de laboratorio de hoy no tuvo nada especial. Piedra an?lisis de orina no mostr? hannah?n signo de infecci?n. Piedra tomograf?a computarizada de hoy no mostr? ninguna causa de piedra dolor Lo m?s probable es que sea un dolor muscular. [place] los medicamentos recetados seg?n las indicaciones. Use hielo o calor en el ?taylor seg?n sea necesario para el dolor Seguimiento con piedra m?dico Si desarrolla s?ntomas nuevos o que empeoran, llame al 911 o regrese a la stephanie de emergencias para dary evaluaci?n adicional. Prescriptions: New cyclobenzaprine 10 mg tablet 10 mg PO TID PRN (Reason: muscle spasm) Qty: 14 0RF lidocaine 5 % adhesive patch,medicated 1 patch topical DAILY Qty: 15 0RF Rx Instructions: leave on most painful area for up to 12 hrs No Action omeprazole 40 mg capsule,delayed release(DR/EC) 40 mg PO DAILY 90 Days Qty: 90 1RF meloxicam 15 mg tablet 15 mg PO DAILY Qty: 30 0RF fluticasone propionate [Flonase Allergy Relief] 50 mcg/actuation spray,suspension 2 spray intranasal DAILY Qty: 16 0RF Rx Instructions: administer into each nostril naproxen 500 mg tablet 500 mg PO BID PRN (Reason: pain) melatonin 10 mg capsule 10 mg PO BEDTIME PRN indomethacin 25 mg capsule 25 mg PO TID PRN (Reason: stabbing headache) 30 Days Qty: 30 1RF Rx Instructions: administer with food or milk, do not take w/ Naproxen. amitriptyline 10 mg tablet 10 mg PO BEDTIME 30 Days Qty: 30 3RF Mirena 20 mcg/24 hours (7 yrs) 52 mg intrauterine device intrauterine Print Language: Lebanese
[2022-10-28 09:44] VITALS: BP 125/83; PULSE 77; RESP 15; TEMP 36.6; O2SAT 97
== END 2022-10-28 10:10 | disposition home or self-care (01) ==
PROVIDERS: Emergency Provider Student in an Organized Health Care Education/Training Program; PCP Internal Medicine
DX: M79.10 Myalgia, unspecified site (principal); R10.9 Unspecified abdominal pain; R31.9 Hematuria, unspecified; Z79.899 Other long term (current) drug therapy
CPT/HCPCS: 36415; 74176; 80053; 81001; 81025; 82248; 83690; 85027; 99284

== ENCOUNTER 2022-11-09 09:00 | Outpatient (RCR) | payer OTHER, SELFPAY ==
--- NOTE | 2022-10-12 11:53 | MHC.PT.EP ---
[facility] [place] Office [place] Office [place] Office [address] [phone] F: [phone] F: [phone] F: [phone] F: [phone] Physical Therapy Plan of Care Date of Evaluation: Date of Surgery: NA Diagnosis: Contusion of L knee and R knee Assessment: Adela is a 46 year old female who is referred to PT for contusion of L knee and R knee She reports of injuring her knee secondary to fall at work on [place] about 2 months back. She went to the ED following the fall where was given pain meds and was referred to ortho. Per pt her pain has been getting worse. On PT examination she presented with mild TTP over medial joint line B, 6/10 pain in B knees with standing, walking and stairs, decreased knee ROM, decreased B hip and knee strength, altered posture and gait. Due to these impairments she has pain with ADLs and needs to take frequent rest breaks. 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 She would benefit from skilled PT to address the aforementioned impairments and improve tolerance to functional activities. Frequency and Duration: The patient will be seen 2/week for 5 weeks. Short Term Goals: 1. Pt will have 50% decrease in pain which will enable her to sit for 30 minutes without pain in 2 weeks. 2. Pt will be able to move her knee through full range of motion without pain which will enable her to move from sit to stand without pain in 3 weeks Laboratory Mechanic Helper Goals: 1. Pt will demonstrate an increase in muscle strength by 1 grade which will enable her to negotiate stairs and walk with a pain no more than 2/10 in 5 weeks. 2. Pt will be independent with HEP for symptom management and maintenance following d/c in 5 weeks. Treatment Plan: Modalities to reduce pain, spasms and effusion. Manual therapy to restore motion and function. Therapeutic exercise to improve strength and flexibility. Neuromuscular re-education for posture and balance. Therapeutic activities to return to functional activities of daily living. Electronically signed by: Justine Alexander PT DPT Please sign and return to therapist. Thank you for your referral.
--- NOTE | 2022-11-29 14:51 | MHC.PT.DC ---
[facility] [place] Office [place] Office [place] Office [address] Sarabjit Donald [address] [phone] F: [phone] F: [phone] F: [phone] F: [phone] Physical Therapy Discharge Report Diagnosis: Contusion of L knee and R knee Date of Surgery: NA Date of Evaluation: 10/12/22 Date of Discharge: 11/29/22 Treatments to Date: 5 Cancellations to Date: 0 No Shows to Date: 0 Discharge Status: Improved Function Independent with HEP Discharge Summary: Adela attended 5 PT visits. She made significant improvements and is independent with all HEPs. She is therefore being d/c from PT. Electronically signed by: Justine Alexander PT DPT Please sign and return to therapist. Thank you for your referral.
== END 2022-11-29 14:51 | disposition home or self-care (01) ==
LOC: HO.PT 09:00
PROVIDERS: PCP Internal Medicine; Visit Provider Physician Assistant
DX: S80.02XD Contusion of left knee, subsequent encounter (principal); S80.01XD Contusion of right knee, subsequent encounter
CPT/HCPCS: 97110; 97161

== ENCOUNTER 2022-11-24 11:23 | Outpatient (REF) | payer OTHER, SELFPAY | END 2022-11-24 11:24 | disposition home or self-care (01) | LOC: HO.LNP 11:23 | PROVIDERS: Visit Provider Internal Medicine | DX: N30.00 Acute cystitis without hematuria (principal) | CPT/HCPCS: 87086; 87088; 87186 ==

== ENCOUNTER 2022-11-25 07:56 | Outpatient (REF) | payer OTHER, SELFPAY ==
[2022-11-25 08:37] LABS: Appearance Urine Clear; Color Urine Yellow; Glucose Urine UA Negative (Negative); Leukocyte Esterase Urine Moderate (2+) (Negative); Nitrite Urine Negative (Negative); UMIC TRIGGER UACC YES; Urine Blood Large (3+) (Negative); Urine Ketones Negative (Negative); Urine Protein Trace mg/dL (Neg-Trace)
[2022-11-25 08:39] LABS: Bacteria Urine None Seen (None Seen); Hyaline Casts Urine 0-2 /LPF (0-2); RBC Urine >20 /HPF (0-2); Squamous Epithelial Cell Urine 0-2 /HPF (0-2); UACC Culture Trigger YES; WBC Urine >50 /HPF (0-5)
[2022-11-25 08:41] LABS: Estimated Average Glucose 194 mg/dL; Hemoglobin A1c % 8.4 %
[2022-11-25 08:56] LABS: Alanine Aminotransferase 40 U/L (0-31); Albumin Level 3.7 g/dL (3.5-5.0); Alkaline Phosphatase 124 U/L (39-117); Anion Gap 13 (12-20); Aspartate Amino Transferase 30 U/L (5-31); Bilirubin Total 0.8 mg/dL (0.0-1.0); Blood Urea Nitrogen 9 mg/dL (9-16); Calcium 8.9 mg/dL (8.4-10.2); Carbon Dioxide 27 mmol/L (22-29); Chloride 106 mmol/L (96-108); Cholesterol 243 mg/dL; Estimated Glomerular Filt Rate > 60; Glucose Fasting 164 mg/dL (60-99); HDL Cholesterol 30 mg/dL; LDL Cholesterol Calculated 183 mg/dl; Potassium 4.5 mmol/L (3.3-5.1); Sodium 141 mmol/L (135-145); Total Protein 6.7 g/dL (6.5-8.0); Triglycerides 153 mg/dL
== END 2022-11-25 07:57 | disposition home or self-care (01) ==
LOC: HO.LAB 07:56
PROVIDERS: PCP Internal Medicine; Visit Provider Internal Medicine
DX: Z00.00 Encounter for general adult medical examination without abnormal findings (principal); E11.40 Type 2 diabetes mellitus with diabetic neuropathy, unspecified
CPT/HCPCS: 36415; 80053; 80061; 81001; 83036

== ENCOUNTER 2022-12-16 08:56 | Outpatient (REF) | payer OTHER, SELFPAY ==
--- NOTE | ~2022-12-16 | MM_ITS ---
EXAMINATION: MM SCREENING DIGITAL BREAST TOMOSYNTHESIS, BILATERAL CLINICAL INFORMATION: Screening. Asymptomatic. The lifetime risk of breast cancer based on the Tyrer-Cuzick Model is 10%. COMPARISON: Mammography: September 21, 2021 and studies dating back to January 04, 2016 TECHNIQUE: Digital breast tomosynthesis is performed in both the craniocaudal and mediolateral oblique views along with computer-aided detection (CAD). Synthesized 2D images are generated from the tomosynthesis. FINDINGS: There are scattered areas of fibroglandular density (ACR BI-RADS breast composition Category b). There are no significant masses, abnormal calcifications, or other abnormalities. MM/MM tomosynthesis screening BI IMPRESSION: No significant changes ASSESSMENT: BI-RADS 1: Negative RECOMMENDATION: Routine annual mammography screening. This patient's information was entered into a reminder system with a target due date for their next mammogram.
== END 2022-12-16 08:57 | disposition home or self-care (01) ==
LOC: HO.MAMMO 08:56
PROVIDERS: PCP Internal Medicine; Visit Provider Internal Medicine
DX: Z12.31 Encounter for screening mammogram for malignant neoplasm of breast (principal)
CPT/HCPCS: 77063; 77067

== ENCOUNTER → 2023-01-04 09:06 | Outpatient (BNVA) | payer OTHER, SELFPAY | PROVIDERS: PCP Internal Medicine; Visit Provider Nurse Practitioner Family | DX: N20.0 Calculus of kidney (principal); R31.29 Other microscopic hematuria | CPT/HCPCS: 99212 ==

== ENCOUNTER → 2023-01-18 08:02 | Outpatient (BNVA) | payer OTHER, SELFPAY | PROVIDERS: PCP Internal Medicine; Referring Provider Internal Medicine; Visit Provider Physician Assistant | DX: K62.5 Hemorrhage of anus and rectum (principal); K59.04 Chronic idiopathic constipation; K64.9 Unspecified hemorrhoids; K21.9 Gastro-esophageal reflux disease without esophagitis; Z79.899 Other long term (current) drug therapy | CPT/HCPCS: 99202 ==

== ENCOUNTER 2023-02-04 06:58 | Emergency (ER) | payer OTHER, SELFPAY ==
--- NOTE | ~2023-02-04 | XR_ITS ---
EXAMINATION: XR CHEST CLINICAL INFORMATION: Cough COMPARISON: October 03, 2022 TECHNIQUE: 2 views of the chest were obtained. FINDINGS: No significant abnormality is noted involving the heart, lungs, mediastinum, bony thorax or soft tissues. Lap band seen in place. XR/XR chest 2V IMPRESSION: No acute disease.
[2023-02-04 07:11] VITALS: BP 127/85; PULSE 83; RESP 18; TEMP 36.8; O2SAT 96; BMI 51.6
--- NOTE | 2023-02-04 07:40 | ED_ITS ---
HPI - URI/Sore Throat General Chief Complaint: Upper Respiratory Symptoms Stated Complaint: Flu like symptoms Time Seen by Provider: 02/04/23 07:33 Source: patient and RN notes reviewed Mode of arrival: ambulatory Limitations: no limitations History of Present Illness HPI Narrative: This is a 47-year-old Kiswahili-speaking female, with a past medical history of diabetes and hyperlipidemia, who presents emergency department with complaints of nonproductive cough, congestion, headaches, and shortness of breath for the last 3 days. Patient denies any fevers, chills, sore throat, ear pain, abdominal pain, nausea, or diarrhea. She admits that she also has constant nonradiating chest pain that worsens with cough. Denies any urinary symptoms. Patient denies any sick contacts. No other complaints or concerns at this time. MD elicited complaint: cough and nasal congestion Exacerbating factors: nothing Relieving factors: nothing Associated symptoms: nasal congestion, cough, chest pain and shortness of breath Treatments prior to arrival: none Related Data Home Medications Medication Instructions Recorded Confirmed melatonin 10 mg capsule 10 mg PO BEDTIME PRN 04/11/22 11/24/22 levonorgestrel 21 mcg/24 hours (8 intrauterine 05/17/22 11/24/22 yrs) 52 mg intrauterine device (Mirena) Previous Rx's Medication Instructions Recorded omeprazole 40 mg capsule,delayed 40 mg PO DAILY 90 days #90 caps 10/08/22 release cyclobenzaprine 10 mg tablet 10 mg PO TID PRN muscle spasm #14 10/28/22 tabs lidocaine 5 % topical patch 1 patch topical DAILY #15 ea 10/28/22 atorvastatin 20 mg tablet 20 mg PO BEDTIME 90 days #90 tabs 11/26/22 metformin 500 mg tablet 500 mg PO BID 90 days #180 tabs 11/26/22 pyridoxine (vitamin B6) 100 mg 100 mg PO DAILY 90 days #90 tabs 01/04/23 tablet bisacodyl 5 mg tablet,delayed 10 mg PO ONCE colonoscopy prep 1 01/18/23 release (Dulcolax (bisacodyl)) day #2 tabs docusate sodium 100 mg capsule 200 mg PO BEDTIME #60 caps 01/18/23 (Colace) methylcellulose (laxative) 500 mg 500 mg PO BID #60 tabs 01/18/23 tablet (Citrucel) polyethylene glycol 3350 17 17 g PO DAILY #510 grams 01/18/23 gram/dose oral powder (Miralax) polyethylene glycol 3350 17 238 g PO ONCE 1 day #238 grams 01/18/23 gram/dose oral powder (Miralax) amitriptyline 10 mg tablet 10 mg PO BEDTIME 30 days #30 tabs 01/31/23 naproxen 500 mg tablet 500 mg PO BID PRN pain 30 days #30 01/31/23 tabs Allergies Allergy/AdvReac Type Severity Reaction Status Date / Time pollard Allergy Intermediate Itching Verified 02/04/23 07:11 raspberry Allergy Intermediate Itching Verified 02/04/23 07:11 Review of Systems Review of Systems: Constitutional: No Weight loss, No Fever, No Chills, No Night Sweats, No Fatigue, No Malaise ENT/Mouth: No Hearing loss, No Ear Pain, + Nasal Congestion, No Sinus Pain, No Hoarseness, No sore throat, No Rhinorrhea, No Swallowing Difficulty Eyes: No Eye Pain, No Swelling, No Redness, No Foreign Body, No Discharge, No Vision Changes Cardiovascular: + Chest Pain, + SOB, No Dyspnea on Exertion, No Orthopnea, No Edema, No Palpitations Respiratory: + Cough, No Sputum, No Wheezing, No Smoke Exposure, No Dyspnea Gastrointestinal: No Nausea, No Vomiting, No Diarrhea, No Constipation, No Abdominal pain, No Hematochezia, No Melena Genitourinary: No irregular bleeding, No Dysuria, No Urinary Frequency, No Hematuria, No Urinary Incontinence/retention, No Urgency, No Flank Pain, No Urinary Flow Changes, No Hesitancy Musculoskeletal: No joint pain, No Myalgias, No Joint Swelling Skin: No Skin Lesions, No rash Neuro: No Weakness, No Numbness, No Paresthesias, No Loss of Consciousness, No Dizziness, No Headache Psych: No Anxiety/Panic, No Depression, No SI/HI/AH/VH, No Social Issues, Heme/Lymph: No Bruising, No Bleeding,No Lymphadenopathy Endocrine: No Polyuria, No Polydipsia, No Temperature Intolerance Yes all other systems are reviewed and are negative Constitutional: Constitutional: Reports as per [facility] Past Medical History Medical History Abnormal uterine bleeding (AUB) Blurry vision, left eye BMI 45.0-49.9, adult Cervical spine pain Dyslipidemia Ectopic GERD (gastroesophageal reflux disease) Hematuria Hemorrhoids Insomnia Internal and external hemorrhoids without complication Kidney stone Pure hypercholesterolemia Renal calculi Thiamine deficiency Thickened endometrium Surgical History H/O laparoscopy Hx of section Hx of cholecystectomy Hx of laparoscopic gastric banding Hx of lithotripsy Family History Family History Mother Osteoporosis Glaucoma Migraine Ovarian cancer Uterine cancer Sister Uterine cancer Maternal Grandfather Diabetes mellitus Paternal Grandmother Diabetes mellitus HTN (hypertension) Maternal Uncle Throat cancer Father HIV (human immunodeficiency virus infection) Sister Heart abnormality Sister Heart abnormality Epilepsy Brother No problems noted. Son No problems noted. Family/Other Substance use disorder Social History Social History Housing: Apartment Alcohol intake: never Patient Tobacco Use Status: Never used Tobacco e-Cigarette/Vaping Use: Never Used Second Hand Smoke Exposure: Yes service: No 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al status: employed Gender identity: Female Cognitive needs: No Hearing needs: No Vision needs: Yes (glasses) Physical Exam Vital Signs: Vital Signs: Last Vital Signs Temp 98.3 F 02/04/23 10:00 Pulse 71 02/04/23 10:00 Resp 16 02/04/23 10:00 BP 133/87 02/04/23 10:00 Pulse Ox 97 02/04/23 10:00 O2 Del Method Room Air 02/04/23 10:00 BMI result Body Mass Index 51.6 Const: General: cooperative, comfortable and no acute distress Orientation/consciousness: patient oriented x3 Limitations: no limitations HEENT: Head: Yes normal to inspection, Yes normocephalic and Yes atraumatic Ears: hearing grossly normal bilaterally and TM's normal bilaterally General nose exam: Normal external nose present Face and sinus: Yes normal facial exam and Yes sinuses nontender Mouth: Normal oral and palatal mucosa present, oropharynx normal and moist mucous membranes Throat: Yes posterior oropharynx normal Eyes: General: appearance normal, both eyes and all related structures Eyelids: Yes eyelids normal Conjunctivae: conjunctivae normal Sclerae: sclerae normal Pupils: Equal, round and reactive pupils present EOM: EOMs intact bilaterally Neck: Neck: Yes normal visual inspection, Yes full ROM and Yes no lymphadenopathy Lymphatic: no lymphadenopathy noted Chest: Chest palpation & inspection: normal inspection of the chest Resp: Effort & Inspection: normal respiratory effort and able to speak in complete sentences Auscultation: clear to auscultation bilaterally, no crackles, no rales, no rhonchi and no wheezes Cardio: Rate: regular rate Rhythm: regular rhythm Heart sounds: S1 normal heart sound present and S2 normal heart sound present GI: Inspection: Yes normal to inspection Skin: General skin exam: no rashes or lesions noted Trauma: no lacerations or abrasions Wounds: no wounds Neuro: General: patient oriented x3 and moves all extremities Cranial nerves: Yes Equal, round and reactive pupils present Extrem: General: Yes normal to inspection Right upper extremity: normal to inspection Left upper extremity: normal to inspection Right lower extremity: normal to inspection Left lower extremity: normal to inspection Course Reevaluation(s) Reevaluation #1: Chest x-ray reviewed, revealing no acute disease in the chest. No leukocytosis, chemistry within normal limits, random glucose mildly elevated 123, troponin 2.7. Given patient's chest pain has been constant for the last 2 days, and presentation of chest pain does not seem to be cardiac in nature, second troponin not indicated. Negative COVID. Pt's symptoms consistent with viral like illness. Pt's vital signs remained stable throughout ER stay. Will treat conservatively with Tessalon Perles, ibuprofen/tylenol, and sudafed PE as needed. Advised to stay well hydrated and get plenty of rest. Advised to f/u with PCP and to return with any new or worsening symptoms. Pt understands and agrees with plan. Time: 08:37 Medical Decision Making Medical Decision Making MDM Narrative: 47-year-old female, with a past medical history of hyperlipidemia and diabetes, presenting to the emergency department for evaluation of nasal congestion cough, chest pain, shortness of breath for last 2 days. On examination, patient is well-appearing, vital signs stable, patient is afebrile oxygen saturation 96% on room air, normotensive. Patient does not monitor her sugars at home despite having a known diagnosis of diabetes. Also reporting chest pain, Heart Score 2, I do not think that this is cardiac related but given her history of diabetes and hypertension lipidemia, will order troponin EKG, chest x-ray. Symptoms likely viral in nature. Plan: Labs, EKG, chest xray, viral swabs Differential Diagnosis Differential Diagnoses: The differential diagnosis associated with the presentation includes Upper respiratory infection, sinusitis, pneumonia, viral syndrome, ACS Admission/Observation Consideration of admission/observation: Escalation of care including admission/observation considered Lab Data 02/04/23 07:57 02/04/23 07:57 Labs: Lab Results 02/04/23 02/04/23 02/04/23 Range/Units 07:30 07:57 07:57 WBC 8.9 (4.8-10.8) X10*3/uL RBC 5.18 (4.20-5.50) X10*6/uL Hgb 15.1 (12.0-16.0) g/dl Hct 45.7 (37.0-47.0) % MCV 88.2 (80.0-98.0) fL MCH 29.2 (27.0-33.0) pg MCHC 33.0 (31.0-35.0) g/dl RDW 12.7 (11.0-16.0) % Plt Count 283 (160-400) X10*3/uL MPV 9.7 (9.4-12.3) fL Immature Gran % (Auto) 0.6 H (0.0-0.4) % Neut % (Auto) 60.4 (45-73) % Lymph % (Auto) 29.3 (20-40) % Ritchie % (Auto) 6.8 (2-11) % Eos % (Auto) 2.4 (0-4) % Baso % (Auto) 0.5 (0-2) % Lymph # (Auto) 2.6 (1.2-4.9) X10*3/uL Ritchie # (Auto) 0.6 (0.1-1.2) X10*3/uL Eos # (Auto) 0.2 (0.0-0.4) X10*3/uL Baso # (Auto) 0.0 (0.0-0.2) X10*3/uL Abs Immat Gran (auto) 0.05 H (0.00-0.03) X10*3/uL Absolute Neuts (auto) 5.4 (2.0-8.3) x10*3/uL Absolute Nucleated RBC 0.000 (0.0-0.012) X10*3/uL Nucleated RBC % (auto) 0.0 (0.0-0.2) /100WBC Sodium 142 (135-145) mmol/L Potassium 4.6 (3.3-5.1) mmol/L Chloride 109 H (96-108) mmol/L Carbon Dioxide 28 (22-29) mmol/L Anion Gap 10 L (12-20) BUN 11 (9-16) mg/dL Creatinine 0.86 (0.5-1.4) mg/dL Estim Creat Clear Calc 109.9 Estimated GFR > 60 Random Glucose 123 H (60-115) mg/dL Calcium 9.2 (8.4-10.2) mg/dL Troponin I High Sens (<3.5-17.0) ng/L COVID-19 (JABIER) Negative (Negative) COVID-19 Clin Com See Note 02/04/23 Range/Units 07:57 WBC (4.8-10.8) X10*3/uL RBC (4.20-5.50) X10*6/uL Hgb (12.0-16.0) g/dl Hct (37.0-47.0) % MCV (80.0-98.0) fL MCH (27.0-33.0) pg MCHC (31.0-35.0) g/dl RDW (11.0-16.0) % Plt Count (160-400) X10*3/uL MPV (9.4-12.3) fL Immature Gran % (Auto) (0.0-0.4) % Neut % (Auto) (45-73) % Lymph % (Auto) (20-40) % Ritchie % (Auto) (2-11) % Eos % (Auto) (0-4) % Baso % (Auto) (0-2) % Lymph # (Auto) (1.2-4.9) X10*3/uL Ritchie # (Auto) (0.1-1.2) X10*3/uL Eos # (Auto) (0.0-0.4) X10*3/uL Baso # (Auto) (0.0-0.2) X10*3/uL Abs Immat Gran (auto) (0.00-0.03) X10*3/uL Absolute Neuts (auto) (2.0-8.3) x10*3/uL Absolute Nucleated RBC (0.0-0.012) X10*3/uL Nucleated RBC % (auto) (0.0-0.2) /100WBC Sodium (135-145) mmol/L Potassium (3.3-5.1) mmol/L Chloride (96-108) mmol/L Carbon Dioxide (22-29) mmol/L Anion Gap (12-20) BUN (9-16) mg/dL Creatinine (0.5-1.4) mg/dL Estim Creat Clear Calc Estimated GFR Random Glucose (60-115) mg/dL Calcium (8.4-10.2) mg/dL Troponin I High Sens < 2.7 (<3.5-17.0) ng/L COVID-19 (JABIER) (Negative) COVID-19 Clin Com Independent Interpretation I performed an independent interpretation of an: EKG and Plain X-Ray Interpretation: No acute consolidation seen, I agree with radiology report. Normal sinus rhythm with sinus arrhythmia at a ventricular rate of 76 beats per minute, VT interval 196, QTC 429. No ST elevation or depression. Radiology Impression Discussion of test interpretation with radiology: I have reviewed the radiologist's reading. Radiologist Impression: EXAMINATION: XR CHEST CLINICAL INFORMATION: Cough COMPARISON: October 03, 2022 TECHNIQUE: 2 views of the chest were obtained. FINDINGS: No significant abnormality is noted involving the heart, lungs, mediastinum, bony thorax or soft tissues. Lap band seen in place. XR/XR chest 2V IMPRESSION: No acute disease. Dictated By: Silas Otoole MD External Record Review External record reviewed: Inpatient record, Office record, Outpatient record, Prior outpatient labs, Prior outpatient radiology, Primary care record and Outside ED record Chronic Conditions Patient?s care impacted by: Diabetes and Other (Hyperlipidemia) Scores Heart Score History: -0- slightly suspicious ECG: -0- normal Age: -1- >45 - <65 Risk factory: -1- 1 or 2 risk factors Troponin: -0- < or = normal limit Score: 2 Risk: 1.7% Discharge Plan Discharge Clinical Impression: Acute upper respiratory infection Patient Disposition: Home, Self-Care Instructions: Upper Respiratory Infection (ED) Additional Instructions: Your chest x-ray showed no pneumonia today. You tested negative for COVID today. Your blood work and EKG were all reassuring. Your symptoms that you have are likely due to a virus, you do not need antibiotics at this time. Please drink plenty of fluids and get plenty of rest. If any new or worsening symptoms occur, including worsening chest pain, shortness of breath, please return to the emergency department for re- evaluation. Follow up with your primary care physician. Prescriptions: No Action omeprazole 40 mg capsule,delayed release(DR/EC) 40 mg PO DAILY 90 Days Qty: 90 1RF metformin 500 mg tablet 500 mg PO BID 90 Days Qty: 180 1RF atorvastatin 20 mg tablet 20 mg PO BEDTIME 90 Days Qty: 90 1RF naproxen 500 mg tablet 500 mg PO BID PRN (Reason: pain) 30 Days Qty: 30 1RF amitriptyline 10 mg tablet 10 mg PO BEDTIME 30 Days Qty: 30 3RF cyclobenzaprine 10 mg tablet 10 mg PO TID PRN (Reason: muscle spasm) Qty: 14 0RF lidocaine 5 % adhesive patch,medicated 1 patch topical DAILY Qty: 15 0RF Rx Instructions: leave on most painful area for up to 12 hrs melatonin 10 mg capsule 10 mg PO BEDTIME PRN Mirena 20 mcg/24 hours (7 yrs) 52 mg intrauterine device intrauterine pyridoxine (vitamin B6) 100 mg tablet 100 mg PO DAILY 90 Days Qty: 90 3RF Citrucel 500 mg tablet 500 mg PO BID Qty: 60 5RF docusate sodium [Colace] 100 mg capsule 200 mg PO BEDTIME Qty: 60 5RF polyethylene glycol 3350 [Miralax] 17 gram/dose powder 17 g PO DAILY Qty: 510 6RF polyethylene glycol 3350 [Miralax] 17 gram/dose powder 238 g PO ONCE 1 Days Qty: 238 0RF Rx Instructions: Take as directed by mouth the day before your procedure. bisacodyl [Dulcolax (bisacodyl)] 5 mg tablet,delayed release (DR/EC) 10 mg PO ONCE 1 Days Qty: 2 0RF Rx Instructions: Take 2 tablets by mouth at 12:00pm the day before your procedure. Interventions: ED Discharge Assessment Last Done: 02/04/23 10:07 Discharge Date/Time: 02/04/23 10:11
--- NOTE | 2023-02-04 07:42 | ECG_ITS ---
Test Reason : SOB Blood Pressure : / mmHG Vent. Rate : 076 BPM Atrial Rate : 076 BPM P-R Int : 196 ms QRS Dur : 082 ms QT Int : 382 ms P-R-T Axes : 048 -31 017 degrees QTc Int : 429 ms Normal sinus rhythm with sinus arrhythmia Left axis deviation Possible Anterior infarct , age undetermined Abnormal ECG When compared with ECG of 29-AUG-2022 11:47, No significant change was found Referred By: Mamie Mcgee Electronically Signed By:MALLORIE RIVERO MD
[2023-02-04 07:51] LABS: COVID-19 Test Negative (Negative); IDNOW Serial# 08D9AD1C
[2023-02-04 08:03] LABS: MANUAL DIFF FLAG NO
[2023-02-04 08:11] LABS: Basophils Percent Auto 0.5 % (0-2); Eosinophils Absolute Auto 0.2 X10*3/uL (0.0-0.4); Eosinophils Percent Auto 2.4 % (0-4); Hematocrit 45.7 % (37.0-47.0); Hemoglobin 15.1 g/dl (12.0-16.0); Imm Gran Abs Auto 0.05 X10*3/uL (0.00-0.03); Imm Gran Pct Auto 0.6 % (0.0-0.4); Lymphocytes Absolute Auto 2.6 X10*3/uL (1.2-4.9); Lymphocytes Percent Auto 29.3 % (20-40); Mean Corpuscular Hemoglobin 29.2 pg (27.0-33.0); Mean Corpuscular Volume 88.2 fL (80.0-98.0); Mean Platelet Volume 9.7 fL (9.4-12.3); Monocytes Absolute Auto 0.6 X10*3/uL (0.1-1.2); Monocytes Percent Auto 6.8 % (2-11); Neutrophils Absolute Auto 5.4 x10*3/uL (2.0-8.3); Neutrophils Percent Auto 60.4 % (45-73); Platelet Count 283 X10*3/uL (160-400); Red Blood Count 5.18 X10*6/uL (4.20-5.50); Red Cell Distribution Width 12.7 % (11.0-16.0); White Blood Count 8.9 X10*3/uL (4.8-10.8)
[2023-02-04 08:16] LABS: Anion Gap 10 (12-20); Blood Urea Nitrogen 11 mg/dL (9-16); Calcium 9.2 mg/dL (8.4-10.2); Carbon Dioxide 28 mmol/L (22-29); Chloride 109 mmol/L (96-108); Creatinine Clr Calc Pharmacy 109.9; Estimated Glomerular Filt Rate > 60; Glucose Random 123 mg/dL (60-115); Potassium 4.6 mmol/L (3.3-5.1); Sodium 142 mmol/L (135-145)
[2023-02-04 08:26] LABS: Troponin-I High Sensitivity < 2.7 ng/L (<3.5-17.0)
[2023-02-04 10:00] VITALS: BP 133/87; PULSE 71; RESP 16; TEMP 36.8; O2SAT 97
== END 2023-02-04 10:11 | disposition home or self-care (01) ==
PROVIDERS: Physician Assistant Medical; Emergency Provider Emergency Medicine; PCP Internal Medicine
DX: J06.9 Acute upper respiratory infection, unspecified (principal); R06.02 Shortness of breath; R05.9 Cough, unspecified; Z20.822 Contact with and (suspected) exposure to COVID-19; Z20.828 Contact with and (suspected) exposure to other viral communicable diseases; Z79.899 Other long term (current) drug therapy
CPT/HCPCS: 36415; 71046; 80048; 84484; 85025; 87635; 93005; 99283; 99284

== ENCOUNTER 2023-03-20 13:57 | Outpatient (AMB) | payer OTHER, SELFPAY ==
--- NOTE | 2023-03-20 14:01 | A.OFFVIS_ITS ---
Intake Vital Signs 03/20/23 14:02 Height 5 ft 3 in Weight 180 lb BMI 31.9 BP 139/61 Blood Pressure Location Lt brachial Position Sitting Pulse 98 Intake Visit Reasons: 6 week follow up/ GERD Intake Note: Patient follow up for GERD. Patient deniies any GI issues. Switch Engineer Required: Yes Switch Engineer Name: Shaquille Vogt [id number] Accompanied by: Self / Same As Patient Allergies pollard Allergy (Intermediate, Verified 03/20/23 14:00) Itching raspberry Allergy (Intermediate, Verified 03/20/23 14:00) Itching Medication List - Last Reconciled 03/20/23 by Ara Cisneros PA-C amitriptyline 10 mg PO BEDTIME 30 days atorvastatin 20 mg PO BEDTIME 90 days bisacodyl (Dulcolax (bisacodyl)) 10 mg (2 x 5 mg) PO ONCE 1 day cyclobenzaprine 10 mg PO TID PRN docusate sodium (Colace) 200 mg (2 x 100 mg) PO BEDTIME levonorgestrel (Mirena) intrauterine lidocaine 5% 1 patch topical DAILY melatonin 10 mg PO BEDTIME PRN metformin 500 mg PO BID 90 days methylcellulose (laxative) (Citrucel) 500 mg PO BID naproxen 500 mg PO BID PRN 30 days omeprazole 40 mg PO DAILY 90 days polyethylene glycol 3350 (Miralax) 17 grams PO DAILY polyethylene glycol 3350 (Miralax) 238 grams PO ONCE 1 day pyridoxine (vitamin B6) 100 mg PO DAILY 90 days HPI HPI Comments History of Present Illness Details 47-year-old female follows up with constipation- she was seen in January- for constipation- doing well- citrucel- much improved She had an EGD with Dr. Salazar- never followed through with her because [place] [facility] [place] further following in await manage. Acid reflux well controlled with omeprazole She actually has no GI complaints today. No nausea, vomiting, hematemesis, hematochezia fever chills [facility] Medical History Abnormal uterine bleeding (AUB) Blurry vision, left eye BMI 45.0-49.9, adult Cervical spine pain Dyslipidemia Ectopic GERD (gastroesophageal reflux disease) Hematuria Hemorrhoids Insomnia Internal and external hemorrhoids without complication Kidney stone Pure hypercholesterolemia Renal calculi Thiamine deficiency Thickened endometrium Surgical History H/O laparoscopy Hx of section Hx of cholecystectomy Hx of laparoscopic gastric banding Hx of lithotripsy Family History Mother Osteoporosis Glaucoma Migraine Ovarian cancer Uterine cancer Sister Uterine cancer Maternal Grandfather Diabetes mellitus Paternal Grandmother Diabetes mellitus HTN (hypertension) Maternal Uncle Throat cancer Father HIV (human immunodeficiency virus infection) Sister Heart abnormality Sister Heart abnormality Epilepsy Brother No problems noted. Son No problems noted. Family/Other Substance use disorder Social History Housing: Apartment Alcohol intake: never Patient Tobacco Use Status: Never used Tobacco e-Cigarette/Vaping Use: Never Used Second Hand Smoke Exposure: Yes service: No 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al status: employed Gender identity: Female Cognitive needs: No Hearing needs: No Vision needs: Yes (glasses) Female Reproductive History Menstrual Age of Menarche: 14 Review of Systems Const All systems reviewed & are unremarkable except as noted in HPI and below Card Denies chest pain and Denies dyspnea Resp Denies dyspnea GI Denies abdominal pain, Denies hematochezia, Denies heartburn, Denies nausea and Denies vomiting Physical Exam Vital Signs: Last Vital Signs Pulse 98 03/20/23 14:02 BP 139/61 03/20/23 14:02 BMI result Body Mass Index 31.9 Const General: cooperative, healthy appearing and comfortable Eyes Sclerae: sclerae normal Resp Effort & Inspection: normal respiratory effort and able to speak in complete sentences Auscultation: clear to auscultation bilaterally Cardio Rate: regular rate Rhythm: regular rhythm Heart sounds: S1 normal heart sound present and S2 normal heart sound present GI Inspection: Yes obesity Palpation (GI): Soft to palpation and nontender Percussion: Yes normal to percussion Auscultation: normal bowel sounds Skin General skin exam: no rashes or lesions noted Extrem General: Yes full ROM Psych Appearance: grossly normal and well kempt Mental Status: mental status grossly normal Speech and movement: Normal speech and movement present Affect: normal affect Attitude: cooperative Thought process: Normal thought process present Thought content: Normal thought content present Assessment & Plan Assessment & Plan (1) Chronic idiopathic constipation: Code(s): K59.04 - Chronic idiopathic constipation Plan Index screening colonoscopy- 2nd request already has prep- MG Patient Instructions: 47-year-old female seen in follow-up of chronic constipation much improved with consistent bowel regimen. She is awaiting index screening colonoscopy. Reviewed procedure, need for escort as well as prep. Encouraged to call questions or concerns. Appreciate the opportunity to assist in the care of the Coding Level of Care Code Est Pt Level 3 (07835) Diagnoses Chronic idiopathic constipation K59.04 Time Spent (min) 30 Comment [id number]
[2023-03-20 14:02] VITALS: BP 139/61; PULSE 98; BMI 31.9
== END 2023-03-20 15:38 | disposition home or self-care (01) ==
PROVIDERS: PCP Internal Medicine; Visit Provider Physician Assistant
DX: K59.04 Chronic idiopathic constipation (principal)
CPT/HCPCS: 99213

== ENCOUNTER → 2023-03-20 13:57 | Outpatient (BNVA) | payer OTHER, SELFPAY | PROVIDERS: PCP Internal Medicine; Visit Provider Physician Assistant | DX: K59.04 Chronic idiopathic constipation (principal) | CPT/HCPCS: 99212 ==

== ENCOUNTER 2023-03-28 13:46 | Outpatient (AMB) | payer OTHER, SELFPAY ==
[2023-03-28 14:01] VITALS: BP 130/90; BMI 50.5
--- NOTE | 2023-03-28 14:01 | A.OFFPC_ITS ---
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 Accompanied by: Self / Same As Patient Allergies pollard Allergy (Intermediate, Verified 03/28/23 14:40) Itching raspberry Allergy (Intermediate, Verified 03/28/23 14:40) Itching Medication List - Last Reconciled 03/28/23 by Milly Prince MD amitriptyline 10 mg PO BEDTIME 30 days atorvastatin 20 mg PO BEDTIME 90 days bisacodyl (Dulcolax (bisacodyl)) 10 mg (2 x 5 mg) PO ONCE 1 day cyclobenzaprine 10 mg PO TID PRN docusate sodium (Colace) 200 mg (2 x 100 mg) PO BEDTIME levonorgestrel (Mirena) intrauterine lidocaine 5% 1 patch topical DAILY melatonin 10 mg PO BEDTIME PRN metformin 500 mg PO BID 90 days methylcellulose (laxative) (Citrucel) 500 mg PO BID naproxen 500 mg PO BID PRN 30 days omeprazole 40 mg PO DAILY 90 days polyethylene glycol 3350 (Miralax) 17 grams PO DAILY polyethylene glycol 3350 (Miralax) 238 grams PO ONCE 1 day pyridoxine (vitamin B6) 100 mg PO DAILY 90 days Tobacco use date assessed: 09/19/22 Dental Screening Dental Screen Date: 03/28/23 Did you have a dental visit in the last 12 months?: Yes Did you have a dental problem in the last 6 months where you did not have access to dental care?: No Was dental information given to patient?: Patient has dentist HPI HPI Comments History of Present Illness Details This is a 47-year-old female with mild major depression, diabetes mellitus type 2, morbid obesity and hyperlipidemia that comes today for follow- up on her conditions. Depression stable with medications. A1c within goal. She is morbidly obese with a BMI of 50.5 and declines weight loss surgery. Lipid panel will be order and her LDL goal should be less than 70. She is compliant with medications. Denies any chest pain or shortness of breath. [facility] Medical History Abnormal uterine bleeding (AUB) Blurry vision, left eye BMI 45.0-49.9, adult Cervical spine pain Dyslipidemia Ectopic GERD (gastroesophageal reflux disease) Hematuria Hemorrhoids Insomnia Internal and external hemorrhoids without complication Kidney stone Pure hypercholesterolemia Renal calculi Thiamine deficiency Thickened endometrium Surgical History H/O laparoscopy Hx of section Hx of cholecystectomy Hx of laparoscopic gastric banding Hx of lithotripsy Family History Mother Osteoporosis Glaucoma Migraine Ovarian cancer Uterine cancer Sister Uterine cancer Maternal Grandfather Diabetes mellitus Paternal Grandmother Diabetes mellitus HTN (hypertension) Maternal Uncle Throat cancer Father HIV (human immunodeficiency virus infection) Sister Heart abnormality Sister Heart abnormality Epilepsy Brother No problems noted. Son No problems noted. Family/Other Substance use disorder Social History Housing: Apartment Alcohol intake: never Patient Tobacco Use Status: Never used Tobacco e-Cigarette/Vaping Use: Never Used Second Hand Smoke Exposure: Yes service: No 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al status: employed 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al exposures/hazards: No Gender identity: Female Cognitive needs: No Hearing needs: No Vision needs: Yes (glasses) Female Reproductive History Menstrual Age of Menarche: 14 Questionnaire Thrive Questionnaire Date Thrive assessed: 11/14/22 JOHNATHON-7 AMB Questionnaire JOHNATHON-7 Date JOHNATHON - 7 assessed: 11/14/22 Source: Developed by Drs. Raffaele Allen, Dominga Pino, Sai Serna and colleagues, with an educational eugenio from [employer]. Review of Systems Const All systems reviewed & are unremarkable except as noted in HPI and below Eyes Reports no additional complaints, Denies change in vision and Denies other visual disturbances Card Denies chest pain at rest, Denies chest pain with activity, Denies edema, Denies irregular heart rhythm, Denies claudication, Denies dyspnea, Denies dyspnea on exertion, Denies orthopnea, Denies paroxysmal nocturnal dyspnea and Denies slow heart rate Resp Denies cough, Denies dyspnea and Denies dyspnea on exertion GI Denies abdominal pain, Denies change in bowel habits, Denies excessive flatus, Denies nausea and Denies vomiting Denies urinary incontinence, Denies urinary hesitancy and Denies urinary urgency Musc Denies abnormal gait, Denies atrophy, Denies deformity and Denies limited range of motion Skin/Breast Denies bleeding lesions, Denies changing lesions and Denies rash Neuro Denies abnormal gait and Denies lack of coordination Physical exam (Primary Care) Vital Signs: Last Vital Signs BP 130/90 H 03/28/23 14:01 BMI result Body Mass Index 50.5 Tobacco/Smoking Status: Tobacco use Status Tobacco use date assessed 09/19/22 03/28/23 14:04 Patient Tobacco Use Status Never used Tobacco 03/28/23 14:04 e-Cigarette/Vaping Use Never Used 03/28/23 14:04 Thrive Assessment: Date of Thrive Assessment Date Thrive assessed 11/14/22 03/28/23 14:04 Eyes General: appearance normal, both eyes and all related structures Eyelids: Yes eyelids normal Conjunctivae: conjunctivae normal Neck Neck: Yes normal visual inspection and Yes supple Resp Effort & Inspection: normal respiratory effort Auscultation: clear to auscultation bilaterally Cardio Jugular venous distension: no JVD Rate: regular rate Rhythm: regular rhythm Heart sounds: S1 normal heart sound present and S2 normal heart sound present Extrem General: Yes full ROM Results AMB Hemoglobin A1c AMB Hemoglobin A1c 6.8 % Last Edit by NABEEL El on 03/28/23 14:1 7 Results Reviewed Results Reviewed: Laboratory Last Values Hgb A1c (Clinic) 6.8 % (4.0-6.0) H 03/28/23 14:16 Assessment and Plan Assessment & Plan (1) Mild major depression: Code(s): F32.0 - Major depressive disorder, single episode, mild Plan: Continue amitriptyline. (2) Morbid obesity: Code(s): E66.01 - Morbid (severe) obesity due to excess calories Plan: Start diet and exercise. BMI goal is less than 30 (3) Diabetes mellitus: Code(s): E11.9 - Type 2 diabetes mellitus without complications Plan: Continue metformin. A1c goal is equal or less than 7 %. (4) Hyperlipidemia LDL goal <70: Code(s): E78.5 - Hyperlipidemia, unspecified Plan: Continue statins. LDL goal is less than 70. Orders: Orders Comprehensive [place]. Panel Fast 4 Months E11.9 - Type 2 diabetes mellitus without complications Lipid Panel 4 Months E78.5 - Hyperlipidemia, unspecified Microalbumin, Random (w Creat) 4 Months E11.9 - Type 2 diabetes mellitus without complications AMB Hemoglobin A1c Today E11.9 - Type 2 diabetes mellitus without complications Coding Level of Care Code Est Pt Level 4 (41754) Diagnoses Mild major depression F32.0 Morbid obesity E66.01 Diabetes mellitus E11.9 Hyperlipidemia LDL goal <70 E78.5 Time Spent (min) 23
== END 2023-03-28 14:44 | disposition home or self-care (01) ==
PROVIDERS: PCP Internal Medicine; Visit Provider Internal Medicine
DX: F32.0 Major depressive disorder, single episode, mild (principal); E66.01 Morbid (severe) obesity due to excess calories; E11.9 Type 2 diabetes mellitus without complications; Z68.43 Body mass index [BMI] 50.0-59.9, adult; E78.5 Hyperlipidemia, unspecified
CPT/HCPCS: 83036; 99214

== ENCOUNTER 2023-05-04 09:25 | Emergency (ER) | payer OTHER, SELFPAY ==
--- NOTE | ~2023-05-04 | XR_ITS ---
EXAMINATION: XR KNEE, RIGHT CLINICAL INFORMATION: Right knee pain status post trauma. COMPARISON: None available. TECHNIQUE: Four views of the right knee. FINDINGS: No fracture or joint effusion. Alignment is anatomic. Joint spaces are maintained. No abnormal soft tissue calcification. XR/XR knee RT 4V IMPRESSION: Unremarkable right knee.
[2023-05-04 09:42] VITALS: BP 147/101; PULSE 78; RESP 12; TEMP 36.9; O2SAT 96; BMI 67.3
--- NOTE | 2023-05-04 10:08 | PC.NURSE ---
Patient report was at work this morning and when she turned to speak to a co worker she become dizzy, lightheaded and fell. Reports falling on right knee. Reports no longer dizzy but has a headache. Reports is a diabetic, checked blood sugar, states number was okay but does not recall what number is. Denies loc or head strike. No trauma noted to right knee.
--- NOTE | 2023-05-04 10:23 | ED_ITS ---
HPI - General Adult General Chief complaint: Extremity Injury, Lower Stated complaint: Work Injury 05/04 Time Seen by Provider: 05/04/23 10:22 Source: patient Limitations: language barrier History of Present Illness HPI narrative: 47-year-old female Occitan-speaking female was evaluated with creative technologist present. 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 Patient denies hitting her head or loss of consciousness. Patient does have a headache at this time. Patient has a history of diabetes but she does not check her blood sugars regularly. Patient denies nausea vomiting fever chills or chest pain at this time symptoms are [id number] no other complaints at this time. Related Data Home Medications Medication Instructions Recorded Confirmed melatonin 10 mg capsule 10 mg PO BEDTIME PRN 04/11/22 03/28/23 levonorgestrel 21 mcg/24 hours (05/17/22 03/28/23 yrs) 52 mg intrauterine device (Mirena) Previous Rx's Medication Instructions Recorded omeprazole 40 mg capsule,delayed 40 mg PO DAILY 90 days #90 caps 10/08/22 release cyclobenzaprine 10 mg tablet 10 mg PO TID PRN muscle spasm #14 10/28/22 tabs lidocaine 5 % topical patch 1 patch topical DAILY #15 ea 10/28/22 atorvastatin 20 mg tablet 20 mg PO BEDTIME 90 days #90 tabs 11/26/22 pyridoxine (vitamin B6) 100 mg 100 mg PO DAILY 90 days #90 tabs 01/04/23 tablet bisacodyl 5 mg tablet,delayed 10 mg PO ONCE colonoscopy prep 1 01/18/23 release (Dulcolax (bisacodyl)) day #2 tabs docusate sodium 100 mg capsule 200 mg PO BEDTIME #60 caps 01/18/23 (Colace) methylcellulose (laxative) 500 mg 500 mg PO BID #60 tabs 01/18/23 tablet (Citrucel) polyethylene glycol 3350 17 17 g PO DAILY #510 grams 01/18/23 gram/dose oral powder (Miralax) polyethylene glycol 3350 17 238 g PO ONCE 1 day #238 grams 01/18/23 gram/dose oral powder (Miralax) amitriptyline 10 mg tablet 10 mg PO BEDTIME 30 days #30 tabs 01/31/23 naproxen 500 mg tablet 500 mg PO BID PRN pain 30 days #30 01/31/23 tabs metformin 500 mg tablet 500 mg PO BID 90 days #180 tabs 04/28/23 ibuprofen 600 mg tablet 600 mg PO TID PRN pain #20 tabs 05/04/23 Allergies Allergy/AdvReac Type Severity Reaction Status Date / Time pollard Allergy Intermediate Itching Verified 03/28/23 14:40 raspberry Allergy Intermediate Itching Verified 03/28/23 14:40 Review of Systems Review of Systems: General: No fever, no chills Ophthalmology: No vision changes, no discharge ENT: No sore throat, no ear pain Cardiovascular: No chest pain, no peripheral edema, no shortness of breath Respiratory: No dyspnea, no sputum production, no cough Muscle skeletal: Right knee pain GI: No abdominal pain, no nausea vomiting, no diarrhea : No dysuria, no urgency, no frequency Skin: Very superficial abrasion to the right knee no bloody discharge Neuro: Positive headache PMFSH Past Medical History Medical History Abnormal uterine bleeding (AUB) Blurry vision, left eye BMI 45.0-49.9, adult Cervical spine pain Dyslipidemia Ectopic GERD (gastroesophageal reflux disease) Hematuria Hemorrhoids Insomnia Internal and external hemorrhoids without complication Kidney stone Pure hypercholesterolemia Renal calculi Thiamine deficiency Thickened endometrium Surgical History H/O laparoscopy Hx of section Hx of cholecystectomy Hx of laparoscopic gastric banding Hx of lithotripsy Family History Family History Mother Osteoporosis Glaucoma Migraine Ovarian cancer Uterine cancer Sister Uterine cancer Maternal Grandfather Diabetes mellitus Paternal Grandmother Diabetes mellitus HTN (hypertension) Maternal Uncle Throat cancer Father HIV (human immunodeficiency virus infection) Sister Heart abnormality Sister Heart abnormality Epilepsy Brother No problems noted. Son No problems noted. Family/Other Substance use disorder Social History Social History Housing: Apartment Alcohol intake: former Patient Tobacco Use Status: Never used Tobacco Smoked in Last 30 Days: No e-Cigarette/Vaping Use: Never Used Second Hand Smoke Exposure: Yes Use of substances other than those prescribed or required for medical reasons: No Advance Directives: No service: No 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al status: employed 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al exposures/hazards: No Gender identity: Female Cognitive needs: No Hearing needs: No Vision needs: Yes (glasses) Physical Exam ED Vital Signs: Vital Signs - 24 hr 05/04/23 09:42 05/04/23 11:23 05/04/23 11:24 Temperature 98.5 F 97.8 F Pulse Rate 78 65 65 Respiratory Rate 12 18 Blood Pressure 147/101 H 114/64 127/75 Pulse Oximetry 96 100 Oxygen Delivery Method Room Air Room Air 05/04/23 11:24 05/04/23 11:24 Temperature Pulse Rate 65 70 Respiratory Rate Blood Pressure 127/75 122/76 Pulse Oximetry Oxygen Delivery Method BMI result Body Mass Index 67.3 General appearance: Awake, alert, cooperative, in no acute distress Skin: Superficial abrasion noted to the right knee no active bleeding Eyes: PERRL, EOMI, positive photophobia ENT: Oropharynx normal, uvula midline Neck: Soft supple full range of motion, no midline tenderness Pulmonary: Breath sounds clear to auscultation bilaterally, no accessory muscle use Cardiovascular: Regular rate and rhythm, no murmurs and rubs Extremities: Right knee some joint line tenderness patella tenderness no obvious deformity pulses sensation intact very superficial abrasion noted. 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 Patient now states she has a headache but denies hitting her head or loss of consciousness. Patient denies nausea vomiting fever chills headache is aching in nature and 5/10 positive photophobia. Point of care check glucose is 113. 600 mg Motrin p.o. Right knee x-ray rule out fracture versus contusion Dizziness likely related to quick position change versus vasovagal. Patient is otherwise nontoxic in appearance. Orthostatic vital signs are within normal limits 11:05 right knee x-rays negative for fracture Medications Administered Discontinued Medications Generic Name Dose Route Start Last Admin Trade Name Freq PRN Reason Stop Dose Admin Ibuprofen 600 mg 05/04/23 10:32 05/04/23 10:56 Ibuprofen 600 Mg Tablet PO 05/04/23 10:33 600 mg ONCE ONE Administration Medical Decision Making Lab Data Labs: Lab Results 05/04/23 Range/Units 10:35 POC Glucose 113 (60-115) mg/dL Radiology Impression Discussion of test interpretation with radiology: I have reviewed the radiologist's reading. Radiologist Impression: [id number] [place] [address] XRay Report Signed Patient: Adela Damon MR#: [id number] : 1975 Acct:[id number] Age/Sex: 47 / F ADM Date: 05/04/23 Loc: HO.ED Attending Dr: Ordering Physician: Giuliano Ivy Date of Service: 05/04/23 Procedure(s): XR knee RT 4V Accession Number(s): [id number] cc: Giuliano Ivy ~ EXAMINATION: XR KNEE, RIGHT? CLINICAL INFORMATION: Right knee pain status post trauma.? COMPARISON: None available.? TECHNIQUE: Four views of the right knee. FINDINGS: No fracture or joint effusion. Alignment is anatomic. Joint spaces are maintained. No abnormal soft tissue calcification.? XR/XR knee RT 4V IMPRESSION: Unremarkable right knee. ? Dictated By: Jayden Cook MD Signed By: <Electronically signed by Jayden Cook MD in OV> 05/04/23 1101 DD/ 1055 TD/TT:? 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 Your blood sugar was normal at 113 Vital signs are stable Prescriptions: New ibuprofen 600 mg tablet 600 mg PO TID PRN (Reason: pain) Qty: 20 0RF No Action omeprazole 40 mg capsule,delayed release(DR/EC) 40 mg PO DAILY 90 Days Qty: 90 1RF atorvastatin 20 mg tablet 20 mg PO BEDTIME 90 Days Qty: 90 1RF naproxen 500 mg tablet 500 mg PO BID PRN (Reason: pain) 30 Days Qty: 30 1RF amitriptyline 10 mg tablet 10 mg PO BEDTIME 30 Days Qty: 30 3RF metformin 500 mg tablet 500 mg PO BID 90 Days Qty: 180 1RF cyclobenzaprine 10 mg tablet 10 mg PO TID PRN (Reason: muscle spasm) Qty: 14 0RF lidocaine 5 % adhesive patch,medicated 1 patch topical DAILY Qty: 15 0RF Rx Instructions: leave on most painful area for up to 12 hrs melatonin 10 mg capsule 10 mg PO BEDTIME PRN Mirena 20 mcg/24 hours (7 yrs) 52 mg intrauterine device intrauterine pyridoxine (vitamin B6) 100 mg tablet 100 mg PO DAILY 90 Days Qty: 90 3RF Citrucel 500 mg tablet 500 mg PO BID Qty: 60 5RF docusate sodium [Colace] 100 mg capsule 200 mg PO BEDTIME Qty: 60 5RF polyethylene glycol 3350 [Miralax] 17 gram/dose powder 17 g PO DAILY Qty: 510 6RF polyethylene glycol 3350 [Miralax] 17 gram/dose powder 238 g PO ONCE 1 Days Qty: 238 0RF Rx Instructions: Take as directed by mouth the day before your procedure. bisacodyl [Dulcolax (bisacodyl)] 5 mg tablet,delayed release (DR/EC) 10 mg PO ONCE 1 Days Qty: 2 0RF Rx Instructions: Take 2 tablets by mouth at 12:00pm the day before your procedure.
[2023-05-04 10:38] LABS: Glucose, Whole Blood 113 mg/dL (60-115)
[2023-05-04] MEDS: Ibuprofen 600 MG TABLET PO (10:56)
--- NOTE | 2023-05-04 10:57 | PC.NURSE ---
pt medicated per mar
[2023-05-04 11:23] VITALS: BP 114/64; PULSE 65
[2023-05-04 11:24] VITALS: BP 122/76; BP 127/75; PULSE 65; PULSE 70; RESP 18; TEMP 36.6; O2SAT 100
--- NOTE | 2023-05-04 11:31 | PC.NURSE ---
Discharge plan reviewed with patient who verbalized understanding
== END 2023-05-04 11:31 | disposition home or self-care (01) ==
PROVIDERS: Emergency Provider Emergency Medicine; PCP Internal Medicine
DX: S80.01XA Contusion of right knee, initial encounter (principal); S80.211A Abrasion, right knee, initial encounter; W18.30XA Fall on same level, unspecified, initial encounter; R51.9 Headache, unspecified; Y93.89 Activity, other specified; Y92.218 Other school as the place of occurrence of the external cause; Y99.0 Civilian activity done for income or pay; E11.9 Type 2 diabetes mellitus without complications; E78.5 Hyperlipidemia, unspecified; E66.01 Morbid (severe) obesity due to excess calories; Z68.44 Body mass index [BMI] 60.0-69.9, adult; Z79.899 Other long term (current) drug therapy; Z79.84 Long term (current) use of oral hypoglycemic drugs
CPT/HCPCS: 73564; 82947; 99283; 99284

== ENCOUNTER 2023-07-09 14:38 | Emergency (ER) | payer OTHER, SELFPAY ==
[2023-07-09] VITALS (8 sets, daily range): BP systolic 107–139; BP diastolic 68–93; PULSE 73–104; RESP 12–22; TEMP 36.6–36.7; O2SAT 96–98; BMI 50.2
--- NOTE | ~2023-07-09 | CT_ITS ---
EXAMINATION: CT ABDOMEN AND PELVIS WITHOUT CONTRAST CLINICAL INFORMATION: Renal stones COMPARISON: CT abdomen pelvis 10/28/2022. TECHNIQUE: Multidetector volumetric imaging was performed from the superior aspect of the liver through the pubic symphysis. Sagittal and coronal reformatted images were obtained on the technologist's workstation. This CT examination was performed using dose optimization techniques as appropriate, variously including the following: *Automated exposure control *Adjustment of mA and/or kV according to patient size (this includes techniques or standardized protocols for targeted exams where dose is matched to indication/reason for exam; i.e. extremities or head) *Use of iterative reconstruction technique DLP: 1099 mGy-cm FINDINGS: Evaluation of solid organs, vascular structures, and bowel wall limited in the absence of intravenous contrast. LUNG BASES: Unremarkable. LIVER AND BILIARY TREE: Diffuse hepatic steatosis. Borderline hepatomegaly with liver spanning 19 cm in craniocaudal dimension. GALLBLADDER: Status post cholecystectomy. PANCREAS: Unremarkable. SPLEEN: Unremarkable. ADRENAL GLANDS: Unremarkable. KIDNEYS AND URETERS: Small, 6 mm left proximal ureteral calculus with mild upstream hydronephrosis. Mild left proximal periureteral fat stranding, likely reactive. Scattered additional left greater than right nonobstructing renal calculi, measuring up to 6 mm in the interpolar left kidney and 2 mm at the right superior pole, decreased burden on the right compared to 10/28/2022. No right-sided hydronephrosis. No other ureteral calculi identified. GASTROINTESTINAL TRACT: Postoperative appearance from gastric lap band with phi angle measuring 57 degrees. Otherwise unremarkable. Normal appendix. VASCULAR: Unremarkable LYMPH NODES: No lymphadenopathy. PERITONEUM: No ascites. BLADDER: Unremarkable. PELVIC VISCERA: Centrally positioned intrauterine device in place. ABDOMINAL AND PELVIC WALL: Unremarkable. OSSEOUS STRUCTURES: Unremarkable. CT/CT abdomen pelvis wo IV con IMPRESSION: 1. Obstructing, 6 mm left proximal ureteral calculus with mild upstream hydronephrosis. 2. Additional bilateral nonobstructing renal calculi, with burden slightly decreased on the right compared to 10/28/2022. 3. Hepatic steatosis and borderline hepatomegaly.
--- NOTE | ~2023-07-09 | XR_ITS ---
EXAMINATION: XR CHEST CLINICAL INFORMATION: Bilateral rib pain COMPARISON: Chest radiograph 02/04/2023. TECHNIQUE: 2 views of the chest were obtained. FINDINGS: Clear lungs. No pleural effusion or pneumothorax. Cardiomediastinal silhouette is unchanged. Gastric lap band in place. No displaced rib fractures identified. XR/XR chest 2V IMPRESSION: No acute cardiopulmonary abnormality. No displaced rib fractures identified.
--- NOTE | 2023-07-09 14:39 | ED.CHESTPAIN ---
HPI - Chest Pain General Chief Complaint: General Medical Stated Complaint: Rib pain Time Seen by Provider: 07/09/23 16:06 Source: patient Mode of arrival: ambulatory Limitations: no limitations History of Present Illness HPI narrative: 47-year-old female with past medical history of kidney stones presents to the ED for bilateral flank pain since yesterday. Patient states no fever or chills. Patient denies any chest pain, shortness of breath, or pleurisy. Patient denies any leg swelling or calf pain. Patient denies any obvious hematuria. Related Data Home Medications Medication Instructions Recorded Confirmed melatonin 10 mg capsule 10 mg PO BEDTIME PRN 04/11/22 03/28/23 levonorgestrel 21 mcg/24 hours (8 intrauterine 05/17/22 03/28/23 yrs) 52 mg intrauterine device (Mirena) Previous Rx's Medication Instructions Recorded omeprazole 40 mg capsule,delayed 40 mg PO DAILY 90 days #90 caps 10/08/22 release cyclobenzaprine 10 mg tablet 10 mg PO TID PRN muscle spasm #14 10/28/22 tabs lidocaine 5 % topical patch 1 patch topical DAILY #15 ea 10/28/22 pyridoxine (vitamin B6) 100 mg 100 mg PO DAILY 90 days #90 tabs 01/04/23 tablet bisacodyl 5 mg tablet,delayed 10 mg (2 x 5 mg) PO ONCE 01/18/23 release (Dulcolax (bisacodyl)) colonoscopy prep 1 day #2 tabs docusate sodium 100 mg capsule 200 mg (2 x 100 mg) PO BEDTIME #60 01/18/23 (Colace) caps methylcellulose (laxative) 500 mg 500 mg PO BID #60 tabs 01/18/23 tablet (Citrucel) polyethylene glycol 3350 17 17 g PO DAILY #510 grams 01/18/23 gram/dose oral powder (Miralax) polyethylene glycol 3350 17 238 g PO ONCE 1 day #238 grams 01/18/23 gram/dose oral powder (Miralax) amitriptyline 10 mg tablet 10 mg PO BEDTIME 30 days #30 tabs 01/31/23 metformin 500 mg tablet 500 mg PO BID 90 days #180 tabs 04/28/23 ibuprofen 600 mg tablet 600 mg PO TID PRN pain #20 tabs 05/04/23 atorvastatin 20 mg tablet 20 mg PO BEDTIME 90 days #90 tabs 05/21/23 naproxen 500 mg tablet 500 mg PO BID PRN pain 30 days #30 06/06/23 tabs cefuroxime axetil 500 mg tablet 500 mg PO BID 5 days #10 tabs 07/09/23 ketorolac 10 mg tablet 10 mg PO QID PRN pain 5 days #20 07/09/23 tabs oxycodone 5 mg tablet 5 mg PO Q8H PRN pain 3 days #9 tabs 07/09/23 prednisone 20 mg tablet 20 mg PO DAILY 3 days #3 tabs 07/09/23 tamsulosin 0.4 mg capsule (Flomax) 0.4 mg PO DAILY 3 days #3 caps 07/10/23 Allergies Allergy/AdvReac Type Severity Reaction Status Date / Time pollard Allergy Intermediate Itching Verified 07/09/23 14:39 raspberry Allergy Intermediate Itching Verified 03/28/23 14:40 PMFSH Past Medical History Medical History Abnormal uterine bleeding (AUB) Blurry vision, left eye BMI 45.0-49.9, adult Cervical spine pain Dyslipidemia Ectopic GERD (gastroesophageal reflux disease) Hematuria Hemorrhoids Insomnia Internal and external hemorrhoids without complication Kidney stone Pure hypercholesterolemia Renal calculi Thiamine deficiency Thickened endometrium Surgical History H/O laparoscopy Hx of section Hx of cholecystectomy Hx of laparoscopic gastric banding Hx of lithotripsy Family History Family History Mother Osteoporosis Glaucoma Migraine Ovarian cancer Uterine cancer Sister Uterine cancer Maternal Grandfather Diabetes mellitus Paternal Grandmother Diabetes mellitus HTN (hypertension) Maternal Uncle Throat cancer Father HIV (human immunodeficiency virus infection) Sister Heart abnormality Sister Heart abnormality Epilepsy Brother No problems noted. Son No problems noted. Family/Other Substance use disorder Social History Social History Housing: Apartment Alcohol intake: former Patient Tobacco Use Status: Never used Tobacco Smoked in Last 30 Days: No e-Cigarette/Vaping Use: Never Used Second Hand Smoke Exposure: Yes Use of substances other than those prescribed or required for medical reasons: No Advance Directives: No Advance Directives Information Provided: No service: No 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al status: employed 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al exposures/hazards: No Gender identity: Female Cognitive needs: No Hearing needs: No Vision needs: Yes (glasses) Physical Exam Vital Signs: Vital Signs: Last Vital Signs Temp 98.1 F 07/09/23 19:12 Pulse 80 07/09/23 20:36 Resp 18 07/09/23 20:36 BP 129/90 H 07/09/23 20:36 Pulse Ox 98 07/09/23 20:36 O2 Del Method Room Air 07/09/23 20:36 BMI result Body Mass Index 50.2 Const: General: cooperative, healthy appearing, comfortable, no acute distress, well developed, alert, awake and Physically active Orientation/consciousness: oriented to person, oriented to place, oriented to time and patient oriented x3 HEENT: Head: Yes normal to inspection, Yes No palpable skull fracture present, Yes normocephalic and Yes atraumatic Eyes: General: appearance normal, both eyes and all related structures Neck: Neck: Yes normal visual inspection, Yes full ROM, Yes no lymphadenopathy, Yes no meningeal signs, Yes trachea midline, Yes supple, No anterior neck swelling and No tender Chest: Chest palpation & inspection: normal inspection of the chest and normal palpation of entire chest wall Resp: Effort & Inspection: normal respiratory effort and able to speak in complete sentences Auscultation: clear to auscultation bilaterally Cardio: Jugular venous distension: no JVD Heart sounds: S1 normal heart sound present and S2 normal heart sound present GI: Inspection: Yes normal to inspection and No abdominal wall ecchymosis Palpation (GI): Soft to palpation, not firm, Tenderness to palpation present (GI) in the LLQ, no guarding and not rigid : General: Yes CVA tenderness (left and right) Back/Spine/Pelvis: Back: CVA tenderness (left and right) Skin: General skin exam: no rashes or lesions noted, elasticity normal and turgor normal Neuro: General: oriented to person, oriented to place, oriented to time, patient oriented x3, gait normal, tone normal, moves all extremities, Normal light touch and pain sensation, no meningeal signs, no focal motor deficits, CN's II-XI intact bilaterally and normal sensation to monofilament Extrem: General: Yes normal to inspection and Yes full ROM Psych: Appearance: grossly normal, well kempt and not disheveled Course Course Course Narrative: RME: 47yo F w/PMHx GERD, HLD, renal stones, c/o bilateral rib pain since last night. Admits to similar sx in the past with renal stones. Admits to urinary frequency. denies fall/injury, N/V, hematuria, dysuria EKG, Labs, UA, CXR, Renal US ordered Full HPI, ROS and PE to be performed by primary ED provider. Medications Administered Discontinued Medications Generic Name Dose Route Start Last Admin Trade Name Chong PRN Reason Stop Dose Admin Ceftriaxone Sodium 1 gm/ 50 mls @ 100 mls/hr 07/09/23 17:00 07/09/23 18:09 Sodium Chloride IV 07/09/23 17:29 Infused ONCE ONE Infusion Ketorolac Tromethamine 30 mg 07/09/23 16:27 07/09/23 16:49 Ketorolac Tromethamine 30 Mg/Ml Vial IVPUSH 07/09/23 16:28 30 mg ONCE ONE Administration Morphine Sulfate 4 mg 07/09/23 16:27 07/09/23 16:53 Morphine Sulfate 4 Mg/Ml Cartridge IVPUSH 07/09/23 16:28 4 mg ONCE ONE Administration Protocol Oxycodone HCl 5 mg 07/09/23 20:26 07/09/23 20:30 Oxycodone Hcl Immed Release 5 Mg Tablet PO 07/09/23 20:27 5 mg ONCE ONE Administration Prednisone 60 mg 07/09/23 16:27 07/09/23 16:48 Prednisone 20 Mg Tablet PO 07/09/23 16:28 60 mg ONCE ONE Administration Tamsulosin HCl 0.8 mg 07/09/23 16:27 07/09/23 16:48 Tamsulosin Hcl 0.4 Mg Capsule PO 07/09/23 16:28 0.8 mg ONCE ONE Administration Medical Decision Making Medical Decision Making [facility] Narrative: 47-year-old female with history of kidney stones presents to ED for bilateral flank pain since yesterday. Patient denies any trauma, chest pain, shortness of breath, or pleurisy. Patient states in the past kidney stone has been removed with lithropsy and stent. Slight was blood cell count of 11. Abdominal CT scan shows left 6 mm obstructive ureteral stone. Urinalysis shows urinary tract infection. Antibiotics, Flomax, steroids ordered. Will contact urologist. 8:00pm : SPoke With urologist Dr. Oscar Gardner who recommends patient could be discharged with pain medication antibiotics and prednisone. Patient's pain is controlled. Patient will follow-up with Dr. Oscar Gardner in the clinic. Differential Diagnosis Differential Diagnoses: The differential diagnosis associated with the presentation includes (UTI, pyelonephritis, kidney stones, pneumonia) Admission/Observation Consideration of admission/observation: Escalation of care including admission/observation considered Consult Healthcare Provider Management of the patient was discussed with: Online Marketing Specialist (Dr. Oscar Gardner Urolgosit) Lab Data MDM Lab Attestation statement: I reviewed the patient's lab results. 07/09/23 15:28 07/09/23 15:28 Labs: Lab Results 07/09/23 07/09/23 07/09/23 Range/Units 15:28 15:59 18:10 WBC 11.4 H (4.8-10.8) X10*3/uL RBC 5.40 (4.20-5.50) X10*6/uL Hgb 15.7 (12.0-16.0) g/dl Hct 47.9 H (37.0-47.0) % MCV 88.7 (80.0-98.0) fL MCH 29.1 (27.0-33.0) pg MCHC 32.8 (31.0-35.0) g/dl RDW 13.1 (11.0-16.0) % Plt Count 303 (160-400) X10*3/uL MPV 9.9 (9.4-12.3) fL Immature Gran % (Auto) 0.4 (0.0-0.4) % Neut % (Auto) 67.9 (45-73) % Lymph % (Auto) 23.2 (20-40) % [place] % (Auto) 6.2 (2-11) % Eos % (Auto) 1.9 (0-4) % Baso % (Auto) 0.4 (0-2) % Lymph # (Auto) 2.6 (1.2-4.9) X10*3/uL [place] # (Auto) 0.7 (0.1-1.2) X10*3/uL Eos # (Auto) 0.2 (0.0-0.4) X10*3/uL Baso # (Auto) 0.0 (0.0-0.2) X10*3/uL Abs Immat Gran (auto) 0.04 H (0.00-0.03) X10*3/uL Absolute Neuts (auto) 7.7 (2.0-8.3) x10*3/uL Absolute Nucleated RBC 0.000 (0.0-0.012) X10*3/uL Nucleated RBC % (auto) 0.0 (0.0-0.2) /100WBC PT 14.1 H (11.1-13.3) SEC INR 1.2 H (0.9-1.1) Sodium 142 (135-145) mmol/L Potassium 4.5 (3.3-5.1) mmol/L Chloride 109 H (96-108) mmol/L Carbon Dioxide 25 (22-29) mmol/L Anion Gap 13 (12-20) BUN 11 (9-16) mg/dL Creatinine 0.89 (0.5-1.4) mg/dL Estim Creat Clear Calc 104.4 Estimated GFR > 60 Random Glucose 103 (60-115) mg/dL Lactic Acid 0.9 (0.5-2.0) mmol/L Calcium 9.8 D (8.4-10.2) mg/dL Magnesium 1.9 (1.6-2.6) mg/dL Total Bilirubin 0.6 (0.0-1.0) mg/dL Direct Bilirubin 0.2 (0.0-0.5) mg/dL AST 25 (5-31) U/L ALT 33 H (0-31) U/L Alkaline Phosphatase 117 (39-117) U/L Troponin I High Sens < 2.7 (<3.5-17.0) ng/L Total Protein 7.4 (6.5-8.0) g/dL Albumin 3.8 (3.5-5.0) g/dL Lipase 20 (8-78) U/L Urine Color Yellow Urine Appearance Clear Urine pH 5.5 (5.0-9.0) Ur Specific [place] 1.015 (1.005-1.025) Urine Protein Negative (Neg-Trace) mg/dL Urine Glucose (UA) Negative (Negative) mg/dL Urine Ketones Negative (Negative) mg/dL Urine Blood Moderate (2+) H (Negative) Urine Nitrite Negative (Negative) Ur Leukocyte Esterase Small (1+) H (Negative) Urine RBC >20 H (0-2) /HPF Urine WBC 11-20 H (0-5) /HPF Ur Squamous Epith Cells 0-2 (0-2) /HPF Urine Bacteria None Seen (None Seen) Hyaline Casts 0-2 (0-2) /LPF Urine Test NEGATIVE (NEGATIVE) Independent Interpretation I performed an independent interpretation of an: EKG (Normal sinus rhythm normal EKG. Ventricular rate 82. Pr interval 188. QRS 84. QTC 453. Negative STEMI) and CT Scan Radiology Impression Discussion of test interpretation with radiology: I have reviewed the radiologist's reading. Independent Historian Clinical information obtained from an independent historian. History obtained from or confirmed by: Other (Son) External Record Review External record reviewed: Other (Prior Visits) Prescription Management I considered prescription management with: Pain Medication, Antibiotic and Other (Steroid) Discharge Plan Discharge Clinical Impression: Calculus, ureteral Patient Disposition: Home, Self-Care Instructions: Ureteral Stones (ED) Additional Instructions: Tiene un c?lculo en el ur?ter de 6 mm. Ser? dado de elizabeth con analg?sicos, antibi?ticos, Flomax y prednisona seg?n lo recomendado por nuestro ur?logo. Recomendar seguimiento esta semana con ur?logo. Regrese al servicio de urgencias de inmediato si el dolor empeora, n?useas, v?mitos, hematuria, p?rdida de apetito, dolor en el costado, fiebre, escalofr?os, debilidad o cualquier otro s?ntoma preocupante. No tome hannah?n otro DANIEL mientras est? tomando toradol. Prescriptions: New prednisone 20 mg tablet 20 mg PO DAILY 3 Days Qty: 3 0RF cefuroxime axetil 500 mg tablet 500 mg PO BID 5 Days Qty: 10 0RF oxycodone 5 mg tablet 5 mg PO Q8H PRN (Reason: pain) 3 Days Qty: 9 0RF Rx Instructions: Partial Fill upon patient request. ketorolac 10 mg tablet 10 mg PO QID PRN (Reason: pain) 5 Days Qty: 20 0RF Rx Instructions: received 30mg IM Toradol in the ED tamsulosin [Flomax] 0.4 mg capsule 0.4 mg PO DAILY 3 Days Qty: 3 0RF No Action omeprazole 40 mg capsule,delayed release(DR/EC) 40 mg PO DAILY 90 Days Qty: 90 1RF amitriptyline 10 mg tablet 10 mg PO BEDTIME 30 Days Qty: 30 3RF metformin 500 mg tablet 500 mg PO BID 90 Days Qty: 180 1RF atorvastatin 20 mg tablet 20 mg PO BEDTIME 90 Days Qty: 90 1RF naproxen 500 mg tablet 500 mg PO BID PRN (Reason: pain) 30 Days Qty: 30 1RF cyclobenzaprine 10 mg tablet 10 mg PO TID PRN (Reason: muscle spasm) Qty: 14 0RF lidocaine 5 % adhesive patch,medicated 1 patch topical DAILY Qty: 15 0RF Rx Instructions: leave on most painful area for up to 12 hrs ibuprofen 600 mg tablet 600 mg PO TID PRN (Reason: pain) Qty: 20 0RF melatonin 10 mg capsule 10 mg PO BEDTIME PRN Mirena 20 mcg/24 hours (7 yrs) 52 mg intrauterine device intrauterine pyridoxine (vitamin B6) 100 mg tablet 100 mg PO DAILY 90 Days Qty: 90 3RF Citrucel 500 mg tablet 500 mg PO BID Qty: 60 5RF docusate sodium [Colace] 100 mg capsule 200 mg PO BEDTIME Qty: 60 5RF polyethylene glycol 3350 [Miralax] 17 gram/dose powder 17 g PO DAILY Qty: 510 6RF polyethylene glycol 3350 [Miralax] 17 gram/dose powder 238 g PO ONCE 1 Days Qty: 238 0RF Rx Instructions: Take as directed by mouth the day before your procedure. bisacodyl [Dulcolax (bisacodyl)] 5 mg tablet,delayed release (DR/EC) 10 mg PO ONCE 1 Days Qty: 2 0RF Rx Instructions: Take 2 tablets by mouth at 12:00pm the day before your procedure. Referrals: [facility] [Provider Group] (Left ureteral stone) Stand Alone Forms: Work/School Release Interventions: ED Discharge Assessment Last Done: 07/09/23 20:36 Discharge Date/Time: 07/09/23 20:37 Print Language: Montserratian
--- NOTE | 2023-07-09 14:40 | ECG_ITS ---
Test Reason : RIB PAIN Blood Pressure : / mmHG Vent. Rate : 082 BPM Atrial Rate : 082 BPM P-R Int : 188 ms QRS Dur : 084 ms QT Int : 388 ms P-R-T Axes : 036 -29 026 degrees QTc Int : 453 ms Normal sinus rhythm Left axis deviation Otherwise normal ECG When compared with ECG of 04-FEB-2023 08:00, No significant change was found Referred By: Kinga Mckeon Electronically Signed By:STEPHANIE ESPAÑA MD
[2023-07-09 15:35] LABS: MANUAL DIFF FLAG NO
[2023-07-09 15:37] LABS: Basophils Percent Auto 0.4 % (0-2); Eosinophils Absolute Auto 0.2 X10*3/uL (0.0-0.4); Eosinophils Percent Auto 1.9 % (0-4); Hematocrit 47.9 % (37.0-47.0); Hemoglobin 15.7 g/dl (12.0-16.0); Imm Gran Abs Auto 0.04 X10*3/uL (0.00-0.03); Imm Gran Pct Auto 0.4 % (0.0-0.4); Lymphocytes Absolute Auto 2.6 X10*3/uL (1.2-4.9); Lymphocytes Percent Auto 23.2 % (20-40); Mean Corpuscular HGB Conc 32.8 g/dl (31.0-35.0); Mean Corpuscular Hemoglobin 29.1 pg (27.0-33.0); Mean Corpuscular Volume 88.7 fL (80.0-98.0); Mean Platelet Volume 9.9 fL (9.4-12.3); Monocytes Absolute Auto 0.7 X10*3/uL (0.1-1.2); Monocytes Percent Auto 6.2 % (2-11); Neutrophils Absolute Auto 7.7 x10*3/uL (2.0-8.3); Neutrophils Percent Auto 67.9 % (45-73); Platelet Count 303 X10*3/uL (160-400); Red Cell Distribution Width 13.1 % (11.0-16.0); White Blood Count 11.4 X10*3/uL (4.8-10.8)
[2023-07-09 15:48] LABS: INTERNATIONAL NORM RATIO 1.2 (0.9-1.1); Prothrombin Time 14.1 SEC (11.1-13.3)
[2023-07-09 15:51] LABS: Alanine Aminotransferase 33 U/L (0-31); Albumin Level 3.8 g/dL (3.5-5.0); Alkaline Phosphatase 117 U/L (39-117); Anion Gap 13 (12-20); Aspartate Amino Transferase 25 U/L (5-31); Bilirubin Direct 0.2 mg/dL (0.0-0.5); Bilirubin Total 0.6 mg/dL (0.0-1.0); Blood Urea Nitrogen 11 mg/dL (9-16); Calcium 9.8 mg/dL (8.4-10.2); Carbon Dioxide 25 mmol/L (22-29); Chloride 109 mmol/L (96-108); Creatinine Clr Calc Pharmacy 104.4; Estimated Glomerular Filt Rate > 60; Glucose Random 103 mg/dL (60-115); Lipase 20 U/L (8-78); Magnesium 1.9 mg/dL (1.6-2.6); Potassium 4.5 mmol/L (3.3-5.1); Sodium 142 mmol/L (135-145); Total Protein 7.4 g/dL (6.5-8.0)
--- NOTE | 2023-07-09 15:54 | PC.NURSE ---
pt resting in bed c/o pain similar to previous kidney stones. no respiratory distress. pt went to radiology for test and returned. aox4. calm, coop. breathing w/o issues.
[2023-07-09 15:58] LABS: Troponin-I High Sensitivity < 2.7 ng/L (<3.5-17.0)
[2023-07-09 16:05] LABS: Appearance Urine Clear; Color Urine Yellow; Glucose Urine UA Negative (Negative); Leukocyte Esterase Urine Small (1+) (Negative); Nitrite Urine Negative (Negative); PH 5.5 (5.0-9.0); Specific Gravity - Urine 1.015 (1.005-1.025); UMIC TRIGGER UACC YES; Urine Blood Moderate (2+) (Negative); Urine Ketones Negative (Negative); Urine Protein Negative (Neg-Trace)
[2023-07-09 16:22] LABS: UPreg QC Valid YES; Urine Pregnancy NEGATIVE (NEGATIVE)
[2023-07-09 16:37] LABS: Bacteria Urine None Seen (None Seen); Hyaline Casts Urine 0-2 /LPF (0-2); RBC Urine >20 /HPF (0-2); Squamous Epithelial Cell Urine 0-2 /HPF (0-2); UACC Culture Trigger YES
[2023-07-09] MEDS: Tamsulosin HCL 0.4 MG CAPSULE 0.8 MG PO (16:48)
[2023-07-09] MEDS: predniSONE 20 MG TABLET 60 MG PO (16:48)
[2023-07-09] MEDS: Ketorolac Tromethamine 30 MG/ML VIAL IVPUSH (16:49)
[2023-07-09] MEDS: Morphine Sulfate 4 MG/ML CARTRIDGE IVPUSH (16:53)
[2023-07-09] MEDS: cefTRIAXone sodium 1 GM in 0.9 % Sodium Chloride 50 ML IV (17:17)
--- NOTE | 2023-07-09 18:12 | MHC.EDTECH ---
Patient both sets of blood culture and lactic acid drawn and sent to lab ,vitals taken ,pt is watching television ,no apparent distress noted ,Call carrera within Pt reach .
[2023-07-09 18:28] LABS: Lactic Acid 0.9 mmol/L (0.5-2.0)
--- NOTE | 2023-07-09 19:19 | PC.NURSE ---
this rn assumed care of pt. pt resting on stretcher, complains of 3/10 bilateral flank pain at this time. respirations even and unlabored, no acute distress.
[2023-07-09] MEDS: oxyCODONE HCl Immed Release 5 MG TABLET PO (20:30)
== END 2023-07-09 20:37 | disposition home or self-care (01) ==
PROVIDERS: Physician Assistant; Emergency Provider Emergency Medicine; PCP Internal Medicine
DX: N13.2 Hydronephrosis with renal and ureteral calculous obstruction (principal); R10.9 Unspecified abdominal pain; K21.9 Gastro-esophageal reflux disease without esophagitis; E78.5 Hyperlipidemia, unspecified; R07.81 Pleurodynia; R35.0 Frequency of micturition; K76.0 Fatty (change of) liver, not elsewhere classified; Z79.899 Other long term (current) drug therapy
CPT/HCPCS: 36415; 71046; 74176; 80048; 80076; 81001; 81025; 83605; 83690; 83735; 84484; 85025; 85610; 87040; 87086; 93005; 96365; 96375; 99285; J0696; J1885; J2270

== ENCOUNTER 2023-07-13 15:39 | Outpatient (AMB) | payer OTHER, SELFPAY ==
--- NOTE | 2023-07-13 15:42 | A.OFFVIS_ITS ---
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 07/13/2023-- She presents today for an evaluation of kidney stones. PMH of obesity, kidney stones, anxiety, HLD, prediabetes, recurrent UTI, and GERD The patient is a Monegasque speaking female. 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 I reviewed the CAT scan of the abdomen/pelvis results from 07/09/2023 revealed a 6 mm right proximal ureteral stone and bilateral non obstructing kidney calculi. Patient states that she has never passed a kidney stone in the past. She states that she has had kidney stones in the past. Patient has had prior procedures include shock wave lithotripsy as well as previous stent for the kidney stones. Plan: Cystoscopy, right ureteroscopy, laser lithotripsy retrograde, ureteral stent was discussed to be scheduled. Risks discussed included but not limited to, possible need to repeat procedure if stone is not completely fragmented, Irritative voiding symptoms, bladder spasms, urgency, blood in urine. [facility] Medical History Abnormal uterine bleeding (AUB) Blurry vision, left eye BMI 45.0-49.9, adult Cervical spine pain Dyslipidemia Ectopic GERD (gastroesophageal reflux disease) Hematuria Hemorrhoids Insomnia Internal and external hemorrhoids without complication Kidney stone Pure hypercholesterolemia Renal calculi Thiamine deficiency Thickened endometrium Surgical History Hx of lithotripsy H/O laparoscopy Hx of section Hx of cholecystectomy Hx of laparoscopic gastric banding Family History Mother Osteoporosis Glaucoma Migraine Ovarian cancer Uterine cancer Sister Uterine cancer Maternal Grandfather Diabetes mellitus Paternal Grandmother Diabetes mellitus HTN (hypertension) Maternal Uncle Throat cancer Father HIV (human immunodeficiency virus infection) Sister Heart abnormality Sister Heart abnormality Epilepsy Brother No problems noted. Son No problems noted. Family/Other Substance use disorder Social History Housing: Apartment Alcohol intake: former Patient Tobacco Use Status: Never used Tobacco e-Cigarette/Vaping Use: Never Used Second Hand Smoke Exposure: Yes service: No 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al status: employed 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al exposures/hazards: No Gender identity: Female Cognitive needs: No Hearing needs: No Vision needs: Yes (glasses) Female Reproductive History Menstrual Age of Menarche: 14 Review of Systems Const All systems reviewed & are unremarkable except as noted in HPI and below Reports no additional complaints Eyes Reports no additional complaints ENT Reports no additional complaints Card Denies dyspnea Resp Denies cough and Denies dyspnea GI Reports no additional complaints Reports no additional complaints Musc Reports no additional complaints Skin/Breast Denies rash and Denies unusual bruising Neuro Reports no additional complaints Psych Reports no additional complaints Endo Reports no additional complaints Charan/Lymph Reports no additional complaints Aller/Immun Reports no additional complaints Physical Exam Const General: cooperative, healthy appearing and no acute distress Orientation/consciousness: patient oriented x3 HEENT Head: Yes normal to inspection, Yes normocephalic and Yes atraumatic Eyes Conjunctivae: conjunctivae normal Neck Neck: Yes normal visual inspection and Yes trachea midline Chest Chest palpation & inspection: normal inspection of the chest Resp Effort & Inspection: normal respiratory effort Cardio Rate: regular rate GI Inspection: Yes normal to inspection Skin General skin exam: no rashes or lesions noted Neuro General: patient oriented x3 Extrem General: No edema Psych Appearance: grossly normal Results Reviewed Results Reviewed: Date of Service: 07/09/23 EXAMINATION: CT ABDOMEN AND PELVIS WITHOUT CONTRAST CLINICAL INFORMATION: Renal stones COMPARISON: CT abdomen pelvis 10/28/2022. FINDINGS: Evaluation of solid organs, vascular structures, and bowel wall limited in the absence of intravenous contrast. LUNG BASES: Unremarkable. LIVER AND BILIARY TREE: Diffuse hepatic steatosis. Borderline hepatomegaly with liver spanning 19 cm in craniocaudal dimension. GALLBLADDER: Status post cholecystectomy. PANCREAS: Unremarkable. SPLEEN: Unremarkable. ADRENAL GLANDS: Unremarkable. KIDNEYS AND URETERS: Small, 6 mm left proximal ureteral calculus with mild upstream hydronephrosis. Mild left proximal periureteral fat stranding, likely reactive. Scattered additional left greater than right nonobstructing renal calculi, measuring up to 6 mm in the interpolar left kidney and 2 mm at the right superior pole, decreased burden on the right compared to 10/28/2022. No right-sided hydronephrosis. No other ureteral calculi identified. GASTROINTESTINAL TRACT: Postoperative appearance from gastric lap band with phi angle measuring 57 degrees. Otherwise unremarkable. Normal appendix. VASCULAR: Unremarkable LYMPH NODES: No lymphadenopathy. PERITONEUM: No ascites. BLADDER: Unremarkable. PELVIC VISCERA: Centrally positioned intrauterine device in place. ABDOMINAL AND PELVIC WALL: Unremarkable. OSSEOUS STRUCTURES: Unremarkable. IMPRESSION: 1. Obstructing, 6 mm left proximal ureteral calculus with mild upstream hydronephrosis. 2. Additional bilateral nonobstructing renal calculi, with burden slightly decreased on the right compared to 10/28/2022. 3. Hepatic steatosis and borderline hepatomegaly. Assessment & Plan Assessment & Plan (1) Renal calculi: Code(s): N20.0 - Calculus of kidney (2) Hydronephrosis: Code(s): N13.30 - Unspecified hydronephrosis (3) Calculus, ureteral: Code(s): N20.1 - Calculus of ureter Plan Cystoscopy, right ureteroscopy, laser lithotripsy was discussed to be scheduled. Patient Instructions: The patient had an opportunity to ask questions regarding treatment plan. All questions were answered. Imaging, Laboratory studies and physical exam results were discussed and reviewed in detail. No major barriers to understanding were identified. The patient expressed understanding and agreement with the above treatment plan. The patient is aware they should contact our office by phone for worsening of their current condition or the appearance of new symptoms. Compliance is encouraged with any medications and followup testing that is ordered. It is a privilege to be allowed the opportunity to participate in the urologic care of your patient. If you have any questions or concerns regarding treatment for the above conditions please do not hesitate to contact me. The office telephone contact is [phone]. This note is constructed in part using voice recognition software. While every effort has been made to ensure accuracy rn lpn cna errors may have been included. Yours sincerely, Kareem Solorio MD Telehealth Telehealth Location of provider rendering services: practice address Location of patient: address on file Patient Identification confirmed using: Name, : Yes Telehealth method: video Patient verbally consented to treatment: Yes Patient verbally consented to billing insurance company: Yes Patient informed of any privacy concerns related to visit: Yes Minutes spent on Phone/Video with Pt.: 23 Coding Level of Care Code Tele Est Pt Level 4 (11263) Diagnoses Renal calculi N20.0 Hydronephrosis N13.30 Calculus, ureteral N20.1
== END 2023-07-13 16:00 | disposition home or self-care (01) ==
LOC: HO.HUSH 15:39
PROVIDERS: PCP Internal Medicine; Visit Provider Urology
DX: N20.0 Calculus of kidney (principal); N13.30 Unspecified hydronephrosis; N20.1 Calculus of ureter
CPT/HCPCS: 99214

== ENCOUNTER → 2023-07-13 15:39 | Outpatient (BNVA) | payer OTHER, SELFPAY | PROVIDERS: PCP Internal Medicine; Visit Provider Urology ==

== ENCOUNTER 2023-07-18 07:24 | Day surgery (SDC) | payer OTHER, SELFPAY ==
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
[2023-07-18] VITALS (15 sets, daily range): BP systolic 115–139; BP diastolic 71–104; PULSE 68–100; RESP 16–20; TEMP 36.1–36.6; O2SAT 95–99; BMI 49.6
--- NOTE | ~2023-07-18 | FL_ITS ---
EXAMINATION: XR FLUOROSCOPY WITH IMAGES CLINICAL INFORMATION: Left stone. COMPARISON: None available. TECHNIQUE: Fluoroscopy Supervised By: Dr. Solorio. Fluoroscopy Time: 38.6 seconds. Cumulative Dose: 26.39 mGy. DAP: Gycm2. Images: 5. FINDINGS: Fluoroscopy guidance for left ureteral stent placement. Initial images demonstrate a wire in left renal collecting system and ureter. Later images demonstrate a left internal ureteral stent. FL/FL guidance in OR IMPRESSION: Fluoroscopy guidance for urology procedure.
[2023-07-18 07:48] LABS: UPreg QC Valid YES; Urine Pregnancy NEGATIVE (NEGATIVE)
[2023-07-18] MEDS: Lactated Ringers 1,000 ML 100 ML IVCONT (08:04)
[2023-07-18 08:16] LABS: Glucose, Whole Blood 136 mg/dL (60-115)
--- NOTE | 2023-07-18 08:29 | MHC.SHP ---
Pre-Procedural Eval Section A Date of Service: 07/18/23 The patient is an INPATIENT: Yes The History & Physical has been completed within 30 days and I have reviewed it.: Yes Section B Chief Complaint: Calculus of kidney Allergies: Allergies Allergy/AdvReac Type Severity Reaction Status Date / Time pollard Allergy Intermediate Itching Verified 07/18/23 07:43 raspberry Allergy Intermediate Itching Verified 07/18/23 07:43 Plan Diagnosis/Plan: Unchanged I have reviewed the history and physical and performed a pertinent physical examination on my patient. No changes have occurred unless specified. Plan for Cystoscopy, Left ureteroscopy, laser lithotripsy, ureteral stent. Risks discussed included but not limited to, possible need to repeat procedure if stone is not completely fragmented, Irritative voiding symptoms, bladder spasms, urgency, blood in urine. Time Spent With Patient Time: Total time managing care of this patient today ____ minutes.
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
--- NOTE | 2023-07-18 11:06 | P.OP_ITS ---
Operative Note Operative Note Date of Service: 07/18/23 Narrative: PreOperative Diagnosis:?? Left ureteral stone Post Operative Diagnosis:?? Left renal stone Procedure: - cystoscopy, left retrograde, left ureteroscopy laser lithotripsy stent insertion, 7 Montserratian by 24 cm Disposible Flexible Ureteroscope Surgeon:?Dr Kareem Solorio Anesthesia:? General Procedure: After informed consent was verified the patient was brought to the operating placed on the OR table in supine position.? General Anesthesia was administered per protocol.? The patient was placed in lithotomy position, prepped and draped in the usual sterile fashion.? Safety pause time-out and side of surgery confirmed.? Antibiotics confirmed. 2% lidocaine jelly 10 mL was passed transurethrally. A 22 Montserratian cystoscope was inserted transurethrally, Both ureteric orifices were in normal position. An open-ended ureteral catheter was passed into the left ureteral orifice and a retrograde examination was performed. There was a filling defect in the proximal ureter and dilatation of the renal pelvis and calices. A guidewire was passed through the ureteral catheter into the kidney. The balloon dilator size 12 fr x 4 cm was passed over the guide -wire the balloon was inflated to 10 mmHg and the intramural ureter was dilated for 45 seconds. The balloon was deflated and removed. After removing the balloon dilator a 2nd guidewire was then passed into the kidney to use as a safety. The cystoscope was removed, leaving both guidewires in place. One guidewire was used as the safety and was attached to the draping. The semi rigid ureteroscope was passed over one of the guidewires to the proximal ureter, the stone was noted to have migrated into the renal pelvis, the rigid ureteroscope was removed and the access sheath was passed over the guide wire, and attached to suction, the disposible flexible ureteroscope was passed through the access sheath to the stone in the renal pelvis. Laser lithotripsy of the stone was done. The stone was very dense and took time to break into smaller fragments. The 0 degree basket was passed through the ureteroscope, to attempt remove the fragments to send for analysis. However even though the fragments were small they were not able to be manipulated beyond the UPJ. The ureteroscope was removed. The access sheath was removed. The cystoscope was passed over the safety guidewire. A? 7 Mont[place]erratian by 24 cm stent was placed into the ureter and renal pelvis under a combination of fluoroscopy and direct visualization. The bladder was emptied.? The rigid cystoscope was removed. ? The patient tolerated the procedure well and was brought to the recovery room in stable condition. Complications: None Drains: Ureteral stent as dictated above
[2023-07-18] MEDS: ondansetron HCL 4 MG/2 ML VIAL IVPUSH (11:16)
[2023-07-18] MEDS: fentaNYL citrate/PF 100 MCG/2 ML VIAL 25 MCG IVPUSH ×4 (11:20→11:35)
[2023-07-18] MEDS: Acetaminophen 1,000 MG/100 ML PIGGYBACK 400 MG IV (11:21)
--- NOTE | 2023-07-18 11:23 | HO.POSTANES ---
Post Anesthesia Evaluation Post Anesthesia Evaluation Date of Service: 07/18/23 Vital Signs: Vital Signs Temp Pulse Resp BP Pulse Ox O2 Del Method 07/18/23 11:20 20 07/18/23 08:30 97.9 F 89 18 116/81 96 Room Air Anesthesia: General LMA Mental Status: Awake Pain Control: Satisfactory Nausea/Vomiting: None Hydration: Adequate Anesthesia-Related Issues: No Anes. Related Issues
[2023-07-18] MEDS: fentaNYL citrate/PF 100 MCG/2 ML VIAL 50 MCG IVPUSH ×2 (11:42→12:06)
[2023-07-18] MEDS: oxyCODONE HCl Immed Release 5 MG TABLET 10 MG PO (11:46)
[2023-07-18] MEDS: Phenazopyridine HCL 200 MG TABLET PO (12:18)
== END 2023-07-18 13:25 | disposition home or self-care (01) ==
PROVIDERS: Nurse Practitioner; PCP Internal Medicine; Visit Provider Urology
PROC: (CPT 52356; principal; 2023-07-18 09:10)
DX: N20.0 Calculus of kidney (principal); N13.30 Unspecified hydronephrosis; N20.1 Calculus of ureter; Z87.442 Personal history of urinary calculi; E66.9 Obesity, unspecified; Z68.42 Body mass index [BMI] 45.0-49.9, adult; Z79.84 Long term (current) use of oral hypoglycemic drugs; E78.00 Pure hypercholesterolemia, unspecified; E51.9 Thiamine deficiency, unspecified; Z79.899 Other long term (current) drug therapy; Z98.84 Bariatric surgery status; Z90.49 Acquired absence of other specified parts of digestive tract
CPT/HCPCS: 52356; 81025; 82947; C1726; C1758; C1769; C2617; J0131; J0690; J1100; J2250; J2371; J2405; J2550; J2704; J3010; Q9967

== ENCOUNTER → 2023-07-18 07:24 | Outpatient (BNV) | payer OTHER, SELFPAY | PROVIDERS: PCP Internal Medicine; Visit Provider Urology | DX: N20.1 Calculus of ureter (principal) | CPT/HCPCS: 52356; 74420 ==

== ENCOUNTER 2023-07-21 13:46 | Outpatient (REF) | payer OTHER, SELFPAY ==
--- NOTE | ~2023-07-21 | XR_ITS ---
EXAMINATION: XR ABDOMEN KUB CLINICAL INDICATION: Status-post left renal lithotripsy and left ureteric stent placement on 07/18/2023. COMPARISON: CT abdomen and pelvis dated 07/09/2023; renal ultrasound dated 06/17/2022. TECHNIQUE: 3 AP views of the abdomen and pelvis are submitted. FINDINGS: The bowel gas pattern is normal, with no evidence of ileus or obstruction. A well-positioned double pigtail left ureteric stent is seen, with slight uncoiling of the proximal pigtail. At the interpolar left kidney, a 4 mm nonobstructing calculus is seen. At the lower pole of the left kidney, there is a small grouping of calculi, the largest measuring 7 mm. No further calculus is seen. There has been a prior gastric band placement. Right upper quadrant surgical clips are seen. There is no acute osseous abnormality. XR/XR KUB IMPRESSION: Multiple left renal calculi are seen. There is a well-positioned left renal stent.
== END 2023-07-21 13:47 | disposition home or self-care (01) ==
LOC: HO.XRAY 13:46
PROVIDERS: Visit Provider Urology
DX: N20.0 Calculus of kidney (principal)
CPT/HCPCS: 74018

== ENCOUNTER 2023-07-26 08:56 | Outpatient (AMB) | payer OTHER, SELFPAY ==
--- NOTE | 2023-07-26 09:10 | A.OFFVIS_ITS ---
Intake Intake Visit Reasons: Stent Removal Intake Note: Patient is Present for Cystoscopy/stent removal Urology Med: None Antibiotic Allergy: None Blood Thinner: None URO- G Disposable Cystoscope lot: [id number] exp:02/15/25 Allergies pollard Allergy (Intermediate, Verified 08/01/23 10:20) Itching raspberry Allergy (Intermediate, Verified 08/01/23 10:20) Itching HPI HPI Comments 2 History of Present Illness Details Adela is a 47-year-old female who presents today to the office for a follow-up. 07/26/2023-- She is followed today s/p ureteroscopy laser lithotripsy stent insertion. Kub Xray I have discussed with the patient that the KUB X-ray is not officially read; however, on my inspection there may be a calcification along the left ureteral stent as well as few calcifications over the left lower pole of the left kidney. I have discussed repeat ureteroscopy and retrograde with stent removal and p ossible lithotripsy, stone extraction as needed. Cystoscopy not done today. Review of charts: Last visit: 07/13/2023--She presents today for an ev aluation of kidney stones. PMH of obesity, kidney stones, anxiety, HLD, prediabetes, recurrent UTI, and GERD The patient is a Green[place]ic speaking female. 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 I reviewed the CAT scan of the abdomen/pelvis results from 07/09/2023 revealed a 6 mm right proximal ureteral stone and bilateral non obstructing kidney calculi. Patient states that she has never passed a kidney stone in the past. She states that she has had kidney stones in the past. Patient has had prior procedures include shock wave lithotripsy as well as previous stent for the kidney stones. 07/26/2023: Plan:Repeat ureteroscopy and retrograde with stent removal and possible lithotripsy, stone extraction was discussed to be scheduled. Ordered Veiscare 10 mg for her bladder spasms. [facility] Medical History Blurry vision, left eye Cervical spine pain Internal and external hemorrhoids without complication Hemorrhoids Renal calculi BMI 45.0-49.9, adult Thiamine deficiency Dyslipidemia GERD (gastroesophageal reflux disease) Hematuria Thickened endometrium Abnormal uterine bleeding (AUB) Pure hypercholesterolemia Insomnia Kidney stone Ectopic Surgical History Hx of lithotripsy H/O laparoscopy Hx of section Hx of cholecystectomy Hx of laparoscopic gastric banding Family History Mother Osteoporosis Glaucoma Migraine Ovarian cancer Uterine cancer Sister Uterine cancer Maternal Grandfather Diabetes mellitus Paternal Grandmother Diabetes mellitus HTN (hypertension) Maternal Uncle Throat cancer Father HIV (human immunodeficiency virus infection) Sister Heart abnormality Sister Heart abnormality Epilepsy Brother No problems noted. Son No problems noted. Family/Other Substance use disorder Social History Housing: Apartment Alcohol intake: former Patient Tobacco Use Status: Never used Tobacco e-Cigarette/Vaping Use: Never Used Second Hand Smoke Exposure: Yes service: No 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al status: employed 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al exposures/hazards: No Gender identity: Female Cognitive needs: No Hearing needs: No Vision needs: Yes (glasses) Female Reproductive History Menstrual Age of Menarche: 14 Review of Systems Const All systems reviewed & are unremarkable except as noted in HPI and below Reports no additional complaints Eyes Reports no additional complaints ENT Reports no additional complaints Card Denies dyspnea Resp Denies cough and Denies dyspnea GI Reports no additional complaints Reports no additional complaints Musc Reports no additional complaints Skin/Breast Denies rash and Denies unusual bruising Neuro Reports no additional complaints Psych Reports no additional complaints Endo Reports no additional complaints Charan/Lymph Reports no additional complaints Aller/Immun Reports no additional complaints Results AMB Urinalysis, Automated UA Leukoctes 125 Sachin/uL Last Edit by NABEEL Billingsley on 07/26/23 09:14 UA Nitrite Negative Last Edit by NABEEL Billingsley on 07/26/23 09:14 UA Urobilinogen 0.2 mg/dL Last Edit by NABEEL Billingsley on 07/26/23 09:1 4 UA Protein 100 mg/dL Last Edit by NABEEL Billingsley on 07/26/23 09:14 UA pH 5.5 Last Edit by NABEEL Billingsley on 07/26/23 09:14 UA Blood 200 Bigg/uL Last Edit by NABEEL Billingsley on 07/26/23 09:14 UA Specific [place] 1.025 Last Edit by HEAVEN BillingsleyA on 07/26/23 09: 14 UA Ketone Negative Last Edit by HEAVEN BillingsleyA on 07/26/23 09:14 UA Bilirubin 0 mg/dL Last Edit by Merlyn Valera, RMA on 07/26/23 09:14 UA Glucose 250 mg/dL Last Edit by HEAVEN BillingsleyA on 07/26/23 09:14 Results Reviewed Results Reviewed: Laboratory Last Values Urine pH (Auto) 5.5 07/26/23 09:11 Specific Reform (Auto) 1.025 07/26/23 09:11 Urine Protein (Auto) 100 mg/dL 07/26/23 09:11 Glucose (UA)(Auto) 250 mg/dL 07/26/23 09:11 Urine Ketones (Auto) Negative 07/26/23 09:11 Urine Blood (Auto) 200 Bigg/uL 07/26/23 09:11 Urine Nitrite (Auto) Negative 07/26/23 09:11 Urine Bilirubin (Auto) 0 mg/dL 07/26/23 09:11 Urine Urobilinogen (Auto) 0.2 mg/dL 07/26/23 09:11 Leukocyte Esterase (Auto) 125 Sachin/uL 07/26/23 09:11 Assessment & Plan Assessment & Plan (1) Renal calculi: Code(s): N20.0 - Calculus of kidney (2) Hydronephrosis: Code(s): N13.30 - Unspecified hydronephrosis (3) Calculus, ureteral: Code(s): N20.1 - Calculus of ureter Plan Repeat ureteroscopy and retrograde with stent removal and possible lithotripsy, stone extraction was discussed to be scheduled. Ordered Veiscare 10 mg for her bladder spasms. Orders: Orders AMB Cystoscopy 07/26/23 N20.0 - Calculus of kidney AMB Urinalysis Automated 07/26/23 Z13.9 - Encounter for screening, unspecified Medications: New lidocaine HCl 2% 10 mL intra-urethral ONCE 10 mL 0RF N20.0 - Calculus of kidney solifenacin (Vesicare) 10 mg PO DAILY 30 tabs 0RF urinary urgency, bladder spasms naproxen 500 mg PO ONCE 1 tab 0RF N20.0 - Calculus of kidney ciprofloxacin HCl 500 mg PO ONCE 1 tab 0RF N20.0 - Calculus of kidney Patient Instructions: The patient had an opportunity to ask questions regarding treatment plan. All questions were answered. Imaging, Laboratory studies and physical exam results were discussed and reviewed in detail. No major barriers to understanding were identified. The patient expressed understanding and agreement with the above treatment plan. The patient is aware they should contact our office by phone for worsening of their current condition or the appearance of new symptoms. Compliance is encouraged with any medications and followup testing that is ordered. It is a privilege to be allowed the opportunity to participate in the urologic care of your patient. If you have any questions or concerns regarding treatment for the above conditions please do not hesitate to contact me. The office telephone contact is [phone]. This note is constructed in part using voice recognition software. While every effort has been made to ensure accuracy floor framer errors may have been included. Yours sincerely, Kareem Solorio MD Coding Level of Care Code Est Pt Level 4 (55015) Diagnoses Renal calculi N20.0 Hydronephrosis N13.30 Calculus, ureteral N20.1
== END 2023-07-26 10:34 | disposition home or self-care (01) ==
PROVIDERS: PCP Internal Medicine; Visit Provider Urology
DX: N20.0 Calculus of kidney (principal); N13.30 Unspecified hydronephrosis; N20.1 Calculus of ureter
CPT/HCPCS: 99214

== ENCOUNTER → 2023-07-26 08:56 | Outpatient (BNVA) | payer OTHER, SELFPAY | PROVIDERS: PCP Internal Medicine; Visit Provider Urology | DX: N20.0 Calculus of kidney (principal); N20.1 Calculus of ureter; N13.30 Unspecified hydronephrosis | CPT/HCPCS: 81003; 99212 ==

== ENCOUNTER 2023-08-01 08:55 | Outpatient (AMB) | payer OTHER, SELFPAY ==
--- NOTE | 2023-08-01 09:10 | MHC.OFFWIV ---
Intake Vital Signs 08/01/23 09:59 Height 5 ft 3 in Weight 280 lb BMI 49.6 BP 130/94 H Blood Pressure Location Rt brachial Position Sitting Pulse 70 Pulse Source Pulse Oximeter Temp 97.0 F Temp Source Temporal Artery Scan Pulse Oximetry (%) 98 Oxygen Delivery Method Room Air Intake Visit Reasons: EP ?UTI Intake Note: pt is here for c/o possible uti Patient Tobacco Use Status: Never used Tobacco Allergies pollard Allergy (Intermediate, Verified 08/01/23 10:20) Itching raspberry Allergy (Intermediate, Verified 08/01/23 10:20) Itching Medication List - Last Reconciled 08/01/23 by Julian Smyth MD amitriptyline 10 mg PO BEDTIME 30 days atorvastatin 20 mg PO BEDTIME 90 days bisacodyl (Dulcolax (bisacodyl)) 10 mg (2 x 5 mg) PO ONCE 1 day levonorgestrel (Mirena) intrauterine melatonin 10 mg PO BEDTIME PRN metformin 500 mg PO BID 90 days methylcellulose (laxative) (Citrucel) 500 mg PO BID naproxen 500 mg PO BID PRN 30 days omeprazole 40 mg PO DAILY 90 days polyethylene glycol 3350 (Miralax) 238 grams PO ONCE 1 day solifenacin (Vesicare) 10 mg PO DAILY Do you need a note to return to daycare/school/sports/work: No HPI EP ?UTI HPI Details Patient presents for a sick visit. Reports symptoms of increased frequency of urination, burning on urination and discomfort in the suprapubic area. Symptoms started in the past few days. No fevers or chills. No nausea or vomiting. [facility] Medical History Blurry vision, left eye Cervical spine pain Internal and external hemorrhoids without complication Hemorrhoids Renal calculi BMI 45.0-49.9, adult Thiamine deficiency Dyslipidemia GERD (gastroesophageal reflux disease) Hematuria Thickened endometrium Abnormal uterine bleeding (AUB) Pure hypercholesterolemia Insomnia Kidney stone Ectopic Surgical History Hx of lithotripsy H/O laparoscopy Hx of section Hx of cholecystectomy Hx of laparoscopic gastric banding Family History Mother Osteoporosis Glaucoma Migraine Ovarian cancer Uterine cancer Sister Uterine cancer Maternal Grandfather Diabetes mellitus Paternal Grandmother Diabetes mellitus HTN (hypertension) Maternal Uncle Throat cancer Father HIV (human immunodeficiency virus infection) Sister Heart abnormality Sister Heart abnormality Epilepsy Brother No problems noted. Son No problems noted. Family/Other Substance use disorder Housing: Apartment Alcohol intake: former Patient Tobacco Use Status: Never used Tobacco e-Cigarette/Vaping Use: Never Used Second Hand Smoke Exposure: Yes service: No 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al status: employed 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al exposures/hazards: No Gender identity: Female Cognitive needs: No Hearing needs: No Vision needs: Yes (glasses) Female Reproductive History Menstrual Age of Menarche: 14 Physical Exam Vital Signs: Last Vital Signs Temp 97.0 F 08/01/23 09:59 Pulse 70 08/01/23 09:59 BP 130/94 H 08/01/23 09:59 Pulse Ox 98 08/01/23 09:59 Oxygen Delivery Method Room Air 08/01/23 09:59 BMI result Body Mass Index 49.6 General: Yes Bimanual renal exam normal bilaterally, Yes bladder normal to palpation and Yes no CVA tenderness Bimanual exam- vagina & uterus: bladder normal to palpation Back/Spine/Pelvis Back: no CVA tenderness Results AMB Urinalysis, Automated UA Leukoctes 15 Sachin/uL Last Edit by Patricia Newman CMA on 08/01/23 09:13 UA Nitrite Negative Last Edit by Patricia Newman CMA on 08/01/23 09:13 UA Urobilinogen 0.2 mg/dL Last Edit by Patricia Newman CMA on 08/01/23 09:13 UA Protein 100 mg/dL Last Edit by Patricia Newman CMA on 08/01/23 09:13 UA pH 6.0 Last Edit by Patricia Newman CMA on 08/01/23 09:13 UA Blood 200 Bigg/uL Last Edit by Patricia Newman CMA on 08/01/23 09:13 UA Specific [place] 1.030 Last Edit by Patricia Newman CMA on 08/01/23 09:13 UA Ketone Negative Last Edit by Patricia Newman CMA on 08/01/23 09:13 UA Bilirubin 0 mg/dL Last Edit by Patricia Newman CMA on 08/01/23 09:13 UA Glucose [id number] mg/dL Last Edit by Patricia Newman CMA on 08/01/23 09:13 Results Reviewed Results Reviewed: Laboratory Last Values Urine pH (Auto) 6.0 08/01/23 09:09 Specific [place] (Auto) 1.030 08/01/23 09:09 Urine Protein (Auto) 100 mg/dL 08/01/23 09:09 Glucose (UA)(Auto) 789829652 mg/dL 08/01/23 09:09 Urine Ketones (Auto) Negative 08/01/23 09:09 Urine Blood (Auto) 200 Bigg/uL 08/01/23 09:09 Urine Nitrite (Auto) Negative 08/01/23 09:09 Urine Bilirubin (Auto) 0 mg/dL 08/01/23 09:09 Urine Urobilinogen (Auto) 0.2 mg/dL 08/01/23 09:09 Leukocyte Esterase (Auto) 15 Sachin/uL 08/01/23 09:09 Assessment & Plan Assessment & Plan (1) Urinary tract infection: Code(s): N39.0 - Urinary tract infection, site not specified Plan: Take antibiotics and Pyridium as directed. Increase fluid intake. If symptoms of burning persist, new onset of fever or lower back pain, to follow-up at the clinic. Orders: Orders AMB Urinalysis Automated Today Z13.9 - Encounter for screening, unspecified Coding Level of Care Code Est Pt Level 3 (47386) Diagnoses Urinary tract infection N39.0
[2023-08-01 09:59] VITALS: BP 130/94; PULSE 70; TEMP 36.1; O2SAT 98; BMI 49.6
== END 2023-08-01 10:27 | disposition home or self-care (01) ==
PROVIDERS: PCP Internal Medicine; Visit Provider Internal Medicine
DX: R35.0 Frequency of micturition (principal); N39.0 Urinary tract infection, site not specified
CPT/HCPCS: 81003; 99213

== ENCOUNTER 2023-08-08 07:56 | Day surgery (SDC) | payer OTHER, SELFPAY ==
--- NOTE | ~2023-08-08 | FL_ITS ---
EXAMINATION: XR FLUOROSCOPY WITH IMAGES CLINICAL INFORMATION: Left stone. COMPARISON: None available. TECHNIQUE: Fluoroscopy Supervised By: Dr. Solorio. Fluoroscopy Time: 14.5 seconds. Cumulative Dose: 9.45 mGy. DAP: None. Images: 2. FINDINGS: Images demonstrate a catheter in the left mid ureter and wire projecting over the expected left renal collecting system and proximal ureter FL/FL guidance in OR IMPRESSION: Fluoroscopy guidance for urology procedure
[2023-08-08 09:42] LABS: UPreg QC Valid YES; Urine Pregnancy NEGATIVE (NEGATIVE)
[2023-08-08 09:43] VITALS: BMI 49.4
[2023-08-08 10:01] LABS: Glucose, Whole Blood 136 mg/dL (60-115)
[2023-08-08] MEDS: Lactated Ringers 1,000 ML 50 ML IVCONT (10:11)
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
[2023-08-08 14:55] VITALS: BP 116/79; PULSE 90; RESP 16; TEMP 36.1; O2SAT 96
[2023-08-08 15:00] VITALS: BP 112/74; PULSE 87; RESP 16; O2SAT 96
[2023-08-08 15:05] VITALS: BP 115/70; PULSE 79; RESP 16; O2SAT 97
[2023-08-08 15:10] VITALS: BP 118/74; PULSE 76; RESP 16; O2SAT 97
--- NOTE | 2023-08-08 15:10 | W.PM.OPN ---
Operative Note Operative Note Date of Service: 08/08/23 Narrative: PreOperative Diagnosis:?? Left ureteral stone, s/p ureteroscopy laser stent Post Operative Diagnosis:?? Left ureteral stone, s/p ureteroscopy laser stent Procedure: Cystoscopy, Left ureteroscopy Stone extraction stent removal Surgeon:?Dr Kareem Solorio Anesthesia:? General Procedure: After informed consent was verified the patient was brought to the operating placed on the OR table in supine position.? General Anesthesia was administered per protocol.? The patient was placed in lithotomy position, prepped and draped in the usual sterile fashion.? Safety pause time-out and side of surgery confirmed.? Antibiotics confirmed. A 22 Vincentian cystoscope was inserted transurethrally. The bladder was visualized.? Both ureteric orifices were in normal position. The ureteral left stent was curled in the bladder. There was edema noted at the orifice. A guide wire was passed along the stent into the kidney under fluoro, there was noted to be moderate hematuria post insertion of the guide wire. The flexible disposible ureteroscope was passed over the guide wire along the stent, there was oozing from the calyces. The flexible ureteroscope was removed, leaving the guide wire in place the stent was removed and a semirigide ureteroscope was passed into the ureter and a stone fragment was noted and removed with the basket and was sent for analysis. The ureteroscope was removed. The cystoscope was passed over the safety guidewire. The left ureteral orifice was observed mild hematuria noted, no significant clots. The guide wire was removed and decision made not to replace the ureteral stent. The bladder was emptied.? The rigid cystoscope was removed. ? The patient tolerated the procedure well and was brought to the recovery room in stable condition. Complications: None Drains: None
[2023-08-08] MEDS: Acetaminophen 325 MG TABLET 975 MG PO (15:19)
[2023-08-08 15:20] VITALS: BP 134/80; PULSE 78; RESP 18; TEMP 36.1; O2SAT 96
[2023-08-16 20:08] LABS: Stone Source KIDNEY STONE
== END 2023-08-08 15:44 | disposition home or self-care (01) ==
PROVIDERS: PCP Internal Medicine; Visit Provider Urology
PROC: (CPT 52352; principal; 2023-08-08 11:50)
DX: N20.1 Calculus of ureter (principal); R31.9 Hematuria, unspecified; Z87.442 Personal history of urinary calculi; N39.0 Urinary tract infection, site not specified; E11.9 Type 2 diabetes mellitus without complications; E78.00 Pure hypercholesterolemia, unspecified; E51.9 Thiamine deficiency, unspecified; K21.9 Gastro-esophageal reflux disease without esophagitis; F41.9 Anxiety disorder, unspecified; G47.00 Insomnia, unspecified; E66.01 Morbid (severe) obesity due to excess calories; Z68.42 Body mass index [BMI] 45.0-49.9, adult; Z79.4 Long term (current) use of insulin; Z98.84 Bariatric surgery status; Z90.49 Acquired absence of other specified parts of digestive tract; Z79.899 Other long term (current) drug therapy
CPT/HCPCS: 52352; 50386; 81025; 82365; 82947; 87086; 88300; C1769; J0690; J1100; J1940; J2405; J2704; J3010; Q9967

== ENCOUNTER → 2023-08-08 07:56 | Outpatient (BNV) | payer OTHER, SELFPAY | PROVIDERS: PCP Internal Medicine; Visit Provider Urology | DX: N20.1 Calculus of ureter (principal) | CPT/HCPCS: 52332 ==

== ENCOUNTER 2023-08-11 12:02 | Emergency (ER) | payer OTHER, SELFPAY ==
--- NOTE | ~2023-08-11 | CT_ITS ---
EXAMINATION: CT ABDOMEN AND PELVIS WITHOUT CONTRAST CLINICAL INFORMATION: Left flank pain COMPARISON: 07/09/2023 TECHNIQUE: Multidetector volumetric imaging was performed from the superior aspect of the liver through the pubic symphysis. Sagittal and coronal reformatted images were obtained on the technologist's workstation. This CT examination was performed using dose optimization techniques as appropriate, variously including the following: *Automated exposure control *Adjustment of mA and/or kV according to patient size (this includes techniques or standardized protocols for targeted exams where dose is matched to indication/reason for exam; i.e. extremities or head) *Use of iterative reconstruction technique DLP: 12 626 mGy-cm FINDINGS: [employer]: Lap band and cholecystectomy clips. LUNG BASES: Mild atelectasis. Nonenlarged heart. No pericardial LIVER, GALLBLADDER, AND BILIARY TREE: Diffuse hypodensity to the liver parenchyma. No focal hepatic lesion or biliary ductal dilatation is present. The gallbladder has been surgically removed. PANCREAS: Unremarkable. SPLEEN: Unremarkable. Splenule. ADRENAL GLANDS: Unremarkable. KIDNEYS AND URETERS: The kidneys are normal in size, shape, and attenuation. 20 nonobstructing right upper and lower pole calculi. 2 mm or less nonobstructing left lower pole and left renal pelvic calculi. There is mild hydronephrosis. There is hydroureter to the level of the left psoas. Proximal to this, couple proximal ureteral calculi are identified, largest measuring 5 mm. No distal ureteral dilatation or calculi. No perinephric stranding. BLADDER: Underfilled likely accounting for thick crocker. Small amount of air within the urinary bladder. GASTROINTESTINAL TRACT: Small hiatal hernia. Lap band. Moderately distended unremarkable stomach. Nonobstructive bowel pattern. Unremarkable terminal ileum. Appendix not seen. Mild fecal retention. ABDOMINAL WALL: No significant hernia is appreciated. LYMPH NODES: Normal. VASCULAR: Unremarkable. PELVIC VISCERA: Phleboliths. IUD. OSSEOUS STRUCTURES: Unremarkable. CT/CT abdomen pelvis wo IV con IMPRESSION: Left hydronephrosis with proximal to mid hydroureter. Bilateral nonobstructing renal calculi. Proximal left ureteral calculi, largest measuring 5 mm, hydroureter extending beyond this level raising possibility of recently passed stone. Intravesicular air. In absence of recent instrumentation, infectious etiology questioned. Correlate with urinalysis. Fleischner guidelines were followed.
[2023-08-11 12:06] VITALS: BP 170/110; PULSE 135; O2SAT 97
--- NOTE | 2023-08-11 12:07 | ED.GENADULT ---
HPI - General Adult General Chief complaint: Abdominal Pain Stated complaint: FLANK PAIN Time Seen by Provider: 08/11/23 12:48 Source: patient Mode of arrival: ambulatory Limitations: language barrier History of Present Illness HPI narrative: Patient with left flank pain, just had her ureteral stent removed 3 days ago, denies fever Onset (ago): hour(s) Severity: moderate Related Data Home Medications Medication Instructions Recorded Confirmed melatonin 10 mg capsule 10 mg PO BEDTIME PRN Insomnia 04/11/22 08/01/23 levonorgestrel 21 mcg/24 hours (8 intrauterine 05/17/22 08/01/23 yrs) 52 mg intrauterine device (Mirena) Previous Rx's Medication Instructions Recorded omeprazole 40 mg capsule,delayed 40 mg PO DAILY 90 days #90 caps 10/08/22 release bisacodyl 5 mg tablet,delayed 10 mg (2 x 5 mg) PO ONCE 01/18/23 release (Dulcolax (bisacodyl)) colonoscopy prep 1 day #2 tabs methylcellulose (laxative) 500 mg 500 mg PO BID #60 tabs 01/18/23 tablet (Citrucel) polyethylene glycol 3350 17 238 g PO ONCE 1 day #238 grams 01/18/23 gram/dose oral powder (Miralax) amitriptyline 10 mg tablet 10 mg PO BEDTIME 30 days #30 tabs 01/31/23 metformin 500 mg tablet 500 mg PO BID 90 days #180 tabs 04/28/23 atorvastatin 20 mg tablet 20 mg PO BEDTIME 90 days #90 tabs 05/21/23 naproxen 500 mg tablet 500 mg PO BID PRN pain 30 days #30 06/06/23 tabs solifenacin 10 mg tablet (Vesicare) 10 mg PO DAILY urinary urgency, 07/26/23 bladder spasms #30 tabs phenazopyridine 200 mg tablet 200 mg PO TID 3 days #9 tabs 08/01/23 (Pyridium) sulfamethoxazole 800 1 tab PO BID 5 days #10 tabs 08/01/23 mg-trimethoprim 160 mg tablet (Bactrim DS) ciprofloxacin HCl 500 mg tablet 500 mg PO BID #10 tabs 08/08/23 (Cipro) oxycodone-acetaminophen 5 mg-325 1 tab PO Q6H PRN pain #6 tabs 08/08/23 mg tablet (Percocet) naproxen 500 mg tablet (Naprosyn) 500 mg PO BID #20 tabs 08/11/23 ondansetron 4 mg disintegrating 4 mg PO Q8H 4 days #12 tabs 08/11/23 tablet prednisone 20 mg tablet 20 mg PO DAILY #3 tabs 08/11/23 tamsulosin 0.4 mg capsule (Flomax) 0.4 mg PO BEDTIME #20 caps 08/11/23 Allergies Allergy/AdvReac Type Severity Reaction Status Date / Time pollard Allergy Intermediate Itching Verified 08/11/23 12:17 raspberry Allergy Intermediate Itching Verified 08/11/23 12:17 Review of Systems Review of Systems: Yes all other systems are reviewed and are negative Neurologic: Denies Sensory deficit (Neuro) PMFSH Past Medical History Medical History Blurry vision, left eye Cervical spine pain Internal and external hemorrhoids without complication Hemorrhoids Renal calculi BMI 45.0-49.9, adult Thiamine deficiency Dyslipidemia GERD (gastroesophageal reflux disease) Hematuria Thickened endometrium Abnormal uterine bleeding (AUB) Pure hypercholesterolemia Insomnia Kidney stone Ectopic Surgical History Hx of lithotripsy H/O laparoscopy Hx of section Hx of cholecystectomy Hx of laparoscopic gastric banding Family History Family History Mother Osteoporosis Glaucoma Migraine Ovarian cancer Uterine cancer Sister Uterine cancer Maternal Grandfather Diabetes mellitus Paternal Grandmother Diabetes mellitus HTN (hypertension) Maternal Uncle Throat cancer Father HIV (human immunodeficiency virus infection) Sister Heart abnormality Sister Heart abnormality Epilepsy Brother No problems noted. Son No problems noted. Family/Other Substance use disorder Social History Social History Housing: Apartment Alcohol intake: former Patient Tobacco Use Status: Never used Tobacco e-Cigarette/Vaping Use: Never Used Second Hand Smoke Exposure: Yes service: No 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al status: employed 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al exposures/hazards: No Gender identity: Female Cognitive needs: No Hearing needs: No Vision needs: Yes (glasses) Physical Exam ED Vital Signs: Vital Signs - 24 hr 08/11/23 12:18 08/11/23 12:51 08/11/23 13:05 Temperature 98.4 F 99.0 F Pulse Rate 145 H 125 H 113 H Respiratory Rate 24 H 20 21 H Blood Pressure 137/111 H 136/96 H 128/98 H Pulse Oximetry 96 95 96 Oxygen Delivery Method Room Air Room Air Room Air 08/11/23 13:55 Temperature 98.4 F Pulse Rate 98 Respiratory Rate 20 Blood Pressure 126/79 Pulse Oximetry 98 Oxygen Delivery Method Room Air BMI result Body Mass Index 49.6 Const Other: screaming and crying Nutritional Appearance: obese Orientation/consciousness: oriented to person and patient oriented x3 Limitations: no limitations HENMT Head: Yes normal to inspection Ears: external ears normal General nose exam: Normal external nose present Mouth: Normal oral and palatal mucosa present and oropharynx normal Throat: Yes posterior oropharynx normal Eyes General: appearance normal, both eyes and all related structures Neck Neck: Yes normal visual inspection Chest Chest palpation & inspection: normal inspection of the chest Resp Auscultation: clear to auscultation bilaterally Cardio Jugular venous distension: no JVD Rate: regular rate Rhythm: regular rhythm Heart sounds: S1 normal heart sound present and S2 normal heart sound present GI Inspection: Yes normal to inspection Palpation (GI): Soft to palpation, nontender and No hepatosplenomegaly present Auscultation: normal bowel sounds General: Yes no CVA tenderness Back/Spine/Pelvis Back: no CVA tenderness Skin General skin exam: no rashes or lesions noted Neuro General: oriented to person and patient oriented x3 Cranial nerves: Yes CN's II-XII intact bilaterally Motor exam (neuro): 5/5 motor strength present throughout Sensory Exam: No Sensory deficit (Neuro) Extrem General: Yes normal to inspection Psych Appearance: grossly normal Course Course Course Narrative: RME- 47 low female presents for evaluation of severe left flank pain that started this morning. She saw Urology 3 days ago for hydronephrosis. She had a ureteral scope and had a stent removed from the left side. Plan for labs, UA, CT abdomen pelvis Reevaluation(s) Reevaluation #1: Patient is currently resting comfortably, sleeping Time: 16:08 Reevaluation #2: discussed with Dr. Oscar Ragsdale will start nsaids, prednisone and flomax for stone that is 5mm Time: 16:16 Medications Administered Generic Name Dose Route Start Last Admin Trade Name Freq PRN Reason Stop Dose Admin Sodium Chloride 1,000 mls @ 250 mls/hr 08/11/23 13:00 08/11/23 12:58 Ns IVCONT 08/11/23 16:59 250 mls/hr .Q4H LATRELL Administration Discontinued Medications Generic Name Dose Route Start Last Admin Trade Name Chong PRN Reason Stop Dose Admin Promethazine HCl 25 mg/ Sodium 51 mls @ 204 mls/hr 08/11/23 12:55 08/11/23 13:28 Chloride IV 08/11/23 12:56 Infused ONCE ONE Infusion Ketorolac Tromethamine 30 mg 08/11/23 12:51 08/11/23 12:58 Ketorolac Tromethamine 30 Mg/Ml Vial IVPUSH 08/11/23 12:52 30 mg ONCE ONE Administration Medical Decision Making Differential Diagnosis Differential Diagnoses: The differential diagnosis associated with the presentation includes (hydronephrosis, renal colic, ureteral clot, pyelonephritis were all considered) Admission/Observation Consideration of admission/observation: Escalation of care including admission/observation considered (upon arrival patient was considered for admission) Consult Healthcare Provider Management of the patient was discussed with: [employer] (Dr. Solorio, nephrology) Lab Data 08/11/23 12:34 08/11/23 12:34 Labs: Lab Results 08/11/23 08/11/23 Range/Units 12:34 15:36 WBC 12.1 H (4.8-10.8) X10*3/uL RBC 5.38 (4.20-5.50) X10*6/uL Hgb 15.8 (12.0-16.0) g/dl Hct 47.3 H (37.0-47.0) % MCV 87.9 (80.0-98.0) fL MCH 29.4 (27.0-33.0) pg MCHC 33.4 (31.0-35.0) g/dl RDW 13.1 (11.0-16.0) % Plt Count 292 (160-400) X10*3/uL MPV 9.4 (9.4-12.3) fL Immature Gran % (Auto) 0.7 H (0.0-0.4) % Neut % (Auto) 65.1 (45-73) % Lymph % (Auto) 27.6 (20-40) % Kleberg % (Auto) 5.3 (2-11) % Eos % (Auto) 1.0 (0-4) % Baso % (Auto) 0.3 (0-2) % Lymph # (Auto) 3.3 (1.2-4.9) X10*3/uL Kleberg # (Auto) 0.6 (0.1-1.2) X10*3/uL Eos # (Auto) 0.1 (0.0-0.4) X10*3/uL Baso # (Auto) 0.0 (0.0-0.2) X10*3/uL Abs Immat Gran (auto) 0.08 H (0.00-0.03) X10*3/uL Absolute Neuts (auto) 7.9 (2.0-8.3) x10*3/uL Absolute Nucleated RBC 0.000 (0.0-0.012) X10*3/uL Nucleated RBC % (auto) 0.0 (0.0-0.2) /100WBC Sodium 140 (135-145) mmol/L Potassium 3.9 (3.3-5.1) mmol/L Chloride 109 H (96-108) mmol/L Carbon Dioxide 22 (22-29) mmol/L Anion Gap 13 (12-20) BUN 12 (9-16) mg/dL Creatinine 0.98 (0.5-1.4) mg/dL Estim Creat Clear Calc 94.1 Estimated GFR > 60 Random Glucose 189 H (60-115) mg/dL Calcium 9.3 (8.4-10.2) mg/dL Urine Color Yellow Urine Appearance Clear Urine pH 5.5 (5.0-9.0) Ur Specific Allen 1.020 (1.005-1.025) Urine Protein Negative (Neg-Trace) mg/dL Urine Glucose (UA) 100 H (Negative) mg/dL Urine Ketones Negative (Negative) mg/dL Urine Blood Large (3+) H (Negative) Urine Nitrite Negative (Negative) Ur Leukocyte Esterase Negative (Negative) Urine RBC 6-10 H (0-2) /HPF Urine WBC 6-10 H (0-5) /HPF Ur Squamous Epith Cells 3-5 (0-2) /HPF Urine Bacteria None Seen (None Seen) Hyaline Casts 0-2 (0-2) /LPF Independent Interpretation I performed an independent interpretation of an: CT Scan (hydronephrosis seen) Radiology Impression Discussion of test interpretation with radiology: I have reviewed the radiologist's reading. (and I agree) External Record Review External record reviewed: Inpatient record and Outpatient record Prescription Management I considered prescription management with: Antibiotic (urine does not appear infected discussed with urology) Chronic Conditions Patient?s care impacted by: Other (renal stone former) Discharge Plan Discharge Clinical Impression: Kidney stone on left side, Hydronephrosis Patient Disposition: Home, Self-Care Instructions: Kidney Stones (ED), Renal Colic (ED), Hydronephrosis (ED) Prescriptions: New ondansetron 4 mg tablet,disintegrating 4 mg PO Q8H 4 Days Qty: 12 0RF naproxen [Naprosyn] 500 mg tablet 500 mg PO BID Qty: 20 0RF tamsulosin [Flomax] 0.4 mg capsule 0.4 mg PO BEDTIME Qty: 20 0RF prednisone 20 mg tablet 20 mg PO DAILY Qty: 3 0RF No Action omeprazole 40 mg capsule,delayed release(DR/EC) 40 mg PO DAILY 90 Days Qty: 90 1RF amitriptyline 10 mg tablet 10 mg PO BEDTIME 30 Days Qty: 30 3RF metformin 500 mg tablet 500 mg PO BID 90 Days Qty: 180 1RF atorvastatin 20 mg tablet 20 mg PO BEDTIME 90 Days Qty: 90 1RF naproxen 500 mg tablet 500 mg PO BID PRN (Reason: pain) 30 Days Qty: 30 1RF Hold Instructions: Resume on 07/21/23. ciprofloxacin HCl [Cipro] 500 mg tablet 500 mg PO BID Qty: 10 0RF oxycodone-acetaminophen [Percocet] 5-325 mg tablet 1 tab PO Q6H PRN (Reason: pain) Qty: 6 0RF Rx Instructions: Partial Fill upon patient request. phenazopyridine [Pyridium] 200 mg tablet 200 mg PO TID 3 Days Qty: 9 0RF sulfamethoxazole-trimethoprim [Bactrim DS] 800-160 mg tablet 1 tab PO BID 5 Days Qty: 10 0RF melatonin 10 mg capsule 10 mg PO BEDTIME PRN (Reason: Insomnia) Mirena 20 mcg/24 hours (7 yrs) 52 mg intrauterine device intrauterine Citrucel 500 mg tablet 500 mg PO BID Qty: 60 5RF polyethylene glycol 3350 [Miralax] 17 gram/dose powder 238 g PO ONCE 1 Days Qty: 238 0RF Rx Instructions: Take as directed by mouth the day before your procedure. bisacodyl [Dulcolax (bisacodyl)] 5 mg tablet,delayed release (DR/EC) 10 mg PO ONCE 1 Days Qty: 2 0RF Rx Instructions: Take 2 tablets by mouth at 12:00pm the day before your procedure. solifenacin [Vesicare] 10 mg tablet 10 mg PO DAILY Qty: 30 0RF Referrals: Kareem Solorio MD [Physician] - 5 days
[2023-08-11 12:18] VITALS: BP 137/111; PULSE 145; RESP 24; TEMP 36.9; O2SAT 96; BMI 49.6
--- NOTE | 2023-08-11 12:21 | ECG_ITS ---
Test Reason : tachy Blood Pressure : / mmHG Vent. Rate : 128 BPM Atrial Rate : 128 BPM P-R Int : 162 ms QRS Dur : 076 ms QT Int : 290 ms P-R-T Axes : 020 -36 041 degrees QTc Int : 423 ms Sinus tachycardia Left axis deviation Possible Anterior infarct , age undetermined Abnormal ECG When compared with ECG of 09-JUL-2023 15:17, Vent. rate has increased BY 46 BPM Borderline criteria for Anterior infarct are now Present Referred By: Sin Liz Electronically Signed By:CHEYANNE CHONG
[2023-08-11 12:38] LABS: MANUAL DIFF FLAG NO
[2023-08-11 12:43] LABS: Basophils Percent Auto 0.3 % (0-2); Eosinophils Absolute Auto 0.1 X10*3/uL (0.0-0.4); Hematocrit 47.3 % (37.0-47.0); Hemoglobin 15.8 g/dl (12.0-16.0); Imm Gran Abs Auto 0.08 X10*3/uL (0.00-0.03); Imm Gran Pct Auto 0.7 % (0.0-0.4); Lymphocytes Absolute Auto 3.3 X10*3/uL (1.2-4.9); Lymphocytes Percent Auto 27.6 % (20-40); Mean Corpuscular HGB Conc 33.4 g/dl (31.0-35.0); Mean Corpuscular Hemoglobin 29.4 pg (27.0-33.0); Mean Corpuscular Volume 87.9 fL (80.0-98.0); Mean Platelet Volume 9.4 fL (9.4-12.3); Monocytes Absolute Auto 0.6 X10*3/uL (0.1-1.2); Monocytes Percent Auto 5.3 % (2-11); Neutrophils Absolute Auto 7.9 x10*3/uL (2.0-8.3); Neutrophils Percent Auto 65.1 % (45-73); Platelet Count 292 X10*3/uL (160-400); Red Blood Count 5.38 X10*6/uL (4.20-5.50); Red Cell Distribution Width 13.1 % (11.0-16.0); White Blood Count 12.1 X10*3/uL (4.8-10.8)
[2023-08-11 12:51] VITALS: BP 136/96; PULSE 125; RESP 20; TEMP 37.2; O2SAT 95
[2023-08-11 12:55] LABS: Anion Gap 13 (12-20); Blood Urea Nitrogen 12 mg/dL (9-16); Calcium 9.3 mg/dL (8.4-10.2); Carbon Dioxide 22 mmol/L (22-29); Chloride 109 mmol/L (96-108); Creatinine Clr Calc Pharmacy 94.1; Estimated Glomerular Filt Rate > 60; Glucose Random 189 mg/dL (60-115); Potassium 3.9 mmol/L (3.3-5.1); Sodium 140 mmol/L (135-145)
[2023-08-11] MEDS: Ketorolac Tromethamine 30 MG/ML VIAL IVPUSH (12:58)
[2023-08-11] MEDS: 0.9 % Sodium Chloride 1,000 ML 250 ML IVCONT (12:58)
[2023-08-11 13:05] VITALS: BP 128/98; PULSE 113; RESP 21; O2SAT 96
[2023-08-11 13:55] VITALS: BP 126/79; PULSE 98; RESP 20; TEMP 36.9; O2SAT 98
[2023-08-11 15:57] LABS: Appearance Urine Clear; Color Urine Yellow; Glucose Urine UA 100 mg/dL (Negative); Leukocyte Esterase Urine Negative (Negative); Nitrite Urine Negative (Negative); PH 5.5 (5.0-9.0); UMIC TRIGGER UACC YES; Urine Blood Large (3+) (Negative); Urine Ketones Negative (Negative); Urine Protein Negative (Neg-Trace)
[2023-08-11 16:02] LABS: Bacteria Urine None Seen (None Seen); Hyaline Casts Urine 0-2 /LPF (0-2); UACC Culture Trigger YES
[2023-08-11 16:29] VITALS: BP 101/61; PULSE 87; RESP 16; O2SAT 98
== END 2023-08-11 16:32 | disposition home or self-care (01) ==
PROVIDERS: Physician Assistant; Emergency Provider Emergency Medicine; PCP Internal Medicine
DX: N20.0 Calculus of kidney (principal); N13.30 Unspecified hydronephrosis; R00.0 Tachycardia, unspecified; Z79.899 Other long term (current) drug therapy
CPT/HCPCS: 36415; 74176; 80048; 81001; 85025; 87086; 87088; 93005; 96361; 96374; 96375; 99285; J1885; J2550

== ENCOUNTER → 2023-08-11 12:21 | Outpatient (BNV) | payer OTHER, SELFPAY | PROVIDERS: Emergency Provider Emergency Medicine; PCP Internal Medicine; Visit Provider Internal Medicine | DX: R00.0 Tachycardia, unspecified (principal); R94.31 Abnormal electrocardiogram [ECG] [EKG] | CPT/HCPCS: 93010 ==

== ENCOUNTER 2023-08-12 10:18 | Inpatient (IN) | payer OTHER, SELFPAY ==
[2023-08-12] VITALS (16 sets, daily range): BP systolic 108–136; BP diastolic 57–86; PULSE 111–135; RESP 20–40; TEMP 37.4–39.5; O2SAT 94–100; BMI 49.6; BMI 50.6
--- NOTE | ~2023-08-12 | XR_ITS ---
EXAMINATION: XR ABDOMEN KUB CLINICAL INDICATION: Hydronephrosis, status post stent placement. COMPARISON: None available. TECHNIQUE: AP view of the abdomen. FINDINGS: The bowel gas pattern is normal with no evidence of ileus or obstruction. No unusual soft tissue calcifications are noted. There is a left nephrostomy catheter with its proximal tip in the left kidney pelvis and distal end in the bladder. Incidental findings of an IUD noted. The bones are unremarkable. XR/XR KUB IMPRESSION: Left nephrostomy catheter with its proximal tip in the left kidney pelvis and distal end in the bladder.
--- NOTE | ~2023-08-12 | FL_ITS ---
EXAMINATION: XR FLUOROSCOPY WITH IMAGES CLINICAL INFORMATION: Cystoscopy, retrograde stent placement, left. COMPARISON: None available. TECHNIQUE: Fluoroscopy Supervised By: Dr. Solorio. Fluoroscopy Time: 11.8 seconds. Cumulative Dose: 7.77 mGy. DAP: Gycm2. Images: 1. FINDINGS: Images demonstrate the proximal end of a left internal ureteral stent. There is a some contrast opacification of the left renal collecting system and proximal ureter. FL/FL guidance in OR IMPRESSION: Fluoroscopy guidance for urology procedure.
--- NOTE | ~2023-08-12 | FL_ITS ---
EXAMINATION: XR FLUOROSCOPY WITH IMAGES CLINICAL INFORMATION: Left stent placement. COMPARISON: CT of the abdomen and pelvis August 2023 TECHNIQUE: Fluoroscopy Supervised By: Dr. Solorio. Fluoroscopy Time: 14.8 seconds. Cumulative Dose: 8.42 mGy. DAP: Not available on this machine. Images: 1. FINDINGS: Single image demonstrates a catheter projecting over the central left renal collecting system and proximal ureter. There is faint contrast opacification of the left renal collecting system. FL/FL guidance in OR IMPRESSION: Fluoroscopy guidance for left urology procedure.
--- NOTE | ~2023-08-12 | XR_ITS ---
EXAMINATION: XR CHEST CLINICAL INFORMATION: Chest pain. COMPARISON: Chest x-ray 07/09/2023. TECHNIQUE: Frontal view of the chest was obtained. FINDINGS: Telemetry leads overlie the chest. The cardiomediastinal silhouette is stable. No vascular congestion. The lungs are mildly hypoexpanded. Thick-walled airways. Linear opacities at the lung bases are stable and likely reflects scarring or subsegmental atelectasis. No effusion or pneumothorax. XR/XR chest 1V IMPRESSION: No acute cardiopulmonary findings.
--- NOTE | 2023-08-12 11:24 | ED.GENADULT ---
HPI - General Adult General Chief complaint: General Medical Stated complaint: vomiting dizzy fever Time Seen by Provider: 08/12/23 12:26 Source: patient Mode of arrival: ambulatory Limitations: no limitations History of Present Illness HPI narrative: Patient is a 47-year-old female who presents emergency department for evaluation of worsening left flank pain, fever, vomiting, dizziness. She states that her pain has not worsened per se but she is unable to take the medication she was sent home with. She states she was seen in the emergency department yesterday, diagnosed with hydronephrosis and a kidney stone, discharged home on oral medications which she has been unable to tolerate due to her vomiting. Related Data Home Medications Medication Instructions Recorded Confirmed levonorgestrel 21 mcg/24 hours (8 intrauterine 05/17/22 08/01/23 yrs) 52 mg intrauterine device (Mirena) omeprazole 40 mg capsule,delayed 40 mg PO DAILY PRN Acid Reflux 08/12/23 08/12/23 release ondansetron 4 mg disintegrating 4 mg PO Q8H PRN Nausea And Vomiting 08/12/23 08/12/23 tablet pyridoxine (vitamin B6) 100 mg 100 mg PO DAILY 08/12/23 08/12/23 tablet Previous Rx's Medication Instructions Recorded amitriptyline 10 mg tablet 10 mg PO BEDTIME 30 days #30 tabs 01/31/23 metformin 500 mg tablet 500 mg PO BID 90 days #180 tabs 04/28/23 atorvastatin 20 mg tablet 20 mg PO BEDTIME 90 days #90 tabs 05/21/23 naproxen 500 mg tablet 500 mg PO BID PRN pain 30 days #30 06/06/23 tabs solifenacin 10 mg tablet (Vesicare) 10 mg PO DAILY urinary urgency, 07/26/23 bladder spasms #30 tabs ciprofloxacin HCl 500 mg tablet 500 mg PO BID #10 tabs 08/08/23 (Cipro) oxycodone-acetaminophen 5 mg-325 1 tab PO Q6H PRN pain #6 tabs 08/08/23 mg tablet (Percocet) Allergies Allergy/AdvReac Type Severity Reaction Status Date / Time pollard Allergy Intermediate Itching Verified 08/11/23 12:17 raspberry Allergy Intermediate Itching Verified 08/11/23 12:17 Review of Systems Review of Systems: Yes all other systems are reviewed and are negative PMFSH Past Medical History Attestation statement: The following information was validated with the patient. Source: old records reviewed Medical History Blurry vision, left eye Cervical spine pain Internal and external hemorrhoids without complication Hemorrhoids Renal calculi BMI 45.0-49.9, adult Thiamine deficiency Dyslipidemia GERD (gastroesophageal reflux disease) Hematuria Thickened endometrium Abnormal uterine bleeding (AUB) Pure hypercholesterolemia Insomnia Kidney stone Ectopic Surgical History Hx of lithotripsy H/O laparoscopy Hx of section Hx of cholecystectomy Hx of laparoscopic gastric banding Family History Family History Mother Osteoporosis Glaucoma Migraine Ovarian cancer Uterine cancer Sister Uterine cancer Maternal Grandfather Diabetes mellitus Paternal Grandmother Diabetes mellitus HTN (hypertension) Maternal Uncle Throat cancer Father HIV (human immunodeficiency virus infection) Sister Heart abnormality Sister Heart abnormality Epilepsy Brother No problems noted. Son No problems noted. Family/Other Substance use disorder Social History Social History Housing: Apartment Alcohol intake: former Patient Tobacco Use Status: Never used Tobacco Smoked in Last 30 Days: No e-Cigarette/Vaping Use: Never Used Second Hand Smoke Exposure: Yes Use of substances other than those prescribed or required for medical reasons: No Advance Directives: No Advance Directives Information Provided: No Patient : No service: No 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al status: employed 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al exposures/hazards: No Gender identity: Female Cognitive needs: No Hearing needs: No Vision needs: Yes (glasses) Physical Exam ED Vital Signs: Vital Signs - 24 hr 08/12/23 11:23 08/12/23 12:55 08/12/23 13:54 Temperature 101.7 F H 103.1 F H 102.8 F H Pulse Rate 135 H 130 H Respiratory Rate 20 26 H Blood Pressure 129/79 126/86 Pulse Oximetry 97 98 Oxygen Delivery Method Room Air Room Air 08/12/23 14:04 08/12/23 14:33 Temperature 99.4 F Pulse Rate 117 H 111 H Respiratory Rate 20 25 H Blood Pressure 108/65 111/61 Pulse Oximetry 94 94 Oxygen Delivery Method Room Air Room Air BMI result Body Mass Index 49.6 Appearance: Alert.?Oriented to person, place and time. No acute distress.?Normal affect. Eyes: Pupils equal, round and reactive to light.? ENT: Pharynx normal.?? Neck: Normal inspection.? Neck supple.?? CVS: Heart sounds normal. Normal heart rate and rhythm.? Pulses normal.?? Respiratory: No respiratory distress.? Lung sounds clear to auscultation bilaterally?? Abdomen: Soft and non-tender. Normoactive bowel sounds. Positive left CVA tenderness Skin: Skin warm and dry.? Normal skin color.?? Extremities: No lower extremity edema.? Neuro: Moves all extremities spontaneously. Sensation intact bilaterally. Ambulates with normal steady gait. Course Course Course Narrative: This is a rapid medical exam. Deferred additional HPI, ROS, PE to primary provider. 47 yo female here with complaints of vomiting, dizziness, headache, left sided flank pain, fever 101 this morning. Seen here yesterday in ER (hydronephrosis,renal colic after recent visit to urology for stent placement). Unable to tolerate medications she was sent home with d/t vomiting. Will need labs, UA, viral screen. febrile in triage, tachycardic Will give zofran SL, then APAP Reevaluation(s) Reevaluation #1: 1224-mild leukocytosis, elevated lactic acid. At this time infection is suspected. Patient is obese. Sarah Ann body weight 52 kg used. Normal saline ordered. Antibiotics ordered. Charge nurse notified Reevaluation #2: Viral testing is negative. Tachycardia improving as fever is resolving. Patient to be admitted to Urology Service under Dr. Oscar Ragsdale. Time: 14:15 Reevaluation #3: Dr. Oscar Ragsdale, planning to bring patient to the OR for stent placement. Patient confirms that she has not eaten anything today. She has drink approximately 10 oz of water since earlier this morning. Time: 15:18 Medications Administered Discontinued Medications Generic Name Dose Route Start Last Admin Trade Name Freq PRN Reason Stop Dose Admin Acetaminophen 975 mg 08/12/23 12:13 08/12/23 12:40 Acetaminophen 325 Mg Tablet PO 08/12/23 12:14 975 mg ONCE ONE Administration Ceftriaxone Sodium 2 gm/ 50 mls @ 100 mls/hr 08/12/23 12:22 08/12/23 13:10 Sodium Chloride IV 08/12/23 12:51 Infused ONCE ONE Infusion Sodium Chloride 1,572 mls @ 1,572 mls/hr 08/12/23 12:22 08/12/23 13:40 Ns IV 08/12/23 13:21 Infused .Q1H STA Infusion Morphine Sulfate 4 mg 08/12/23 12:45 08/12/23 12:59 Morphine Sulfate 4 Mg/Ml Cartridge IVPUSH 08/12/23 12:46 4 mg ONCE ONE Administration Protocol Ondansetron HCl 4 mg 08/12/23 11:30 08/12/23 11:35 Ondansetron Odt 4 Mg Tab.Rapdis TRANSLINGU 08/12/23 11:31 4 mg ONCE ONE Administration Ondansetron HCl 4 mg 08/12/23 12:45 08/12/23 12:59 Ondansetron Hcl 4 Mg/2 Ml Vial IVPUSH 08/12/23 12:46 4 mg ONCE ONE Administration Medical Decision Making Medical Decision Making [facility] Narrative: Assumed care of patient at 12:27. Patient is a 47-year-old female with past medical history of hemorrhoids, nephrolithiasis with prior lithotripsy, dyslipidemia, GERD, hypercholesterolemia, insomnia, ectopic , prior cholecystectomy Patient meeting SIRS criteria, brought back from the waiting room, noted to have leukocytosis of 16.4 with left shift, MIRI with BUN and creatinine 15/1.5 which is increased when compared to labs obtained yesterday of 12/0.98, mildly elevated transaminases and total bili 1.4 lactic acidosis; 4.4, IV crystalloids ordered based on ideal body weight. Infection suspected, ceftriaxone 2 g IV ordered. Acetaminophen for fever. Upon review of her record she was seen in the emergency department 08/11/2023 she was afebrile at that time but was noted to be tachycardic. She had seen urology 3 days prior for hydronephrosis, had a ureteral scope and a stent removed from the left side, Dr. Oscar Ragsdale was consult did and advised treatment with NSAIDs, prednisone, and tamsulosin for left hydronephrosis and proximal to mid hydroureter with 5 mm stone in the proximal left ureter. Urine culture obtained yesterday 08/11/2023 was without any bacterial growth. Blood cultures to be obtained, in addition to COVID-19/influenza/RSV testing Differential Diagnosis Differential Diagnoses: The differential diagnosis associated with the presentation includes (Pyelonephritis, obstructive calculi, hydronephrosis, viral syndrome) Admission/Observation Consideration of admission/observation: Escalation of care including admission/observation considered (See narrative above and course narrative for further detail) Consult Healthcare Provider Management of the patient was discussed with: Customer Account Representative (Urology Dr. Oscar Ragsdale) Lab Data MDM Lab Attestation statement: I reviewed the patient's lab results. (See narrative above) 08/12/23 12:00 08/12/23 12:00 Labs: Lab Results 08/12/23 08/12/23 08/12/23 Range/Units 12:00 12:37 13:30 WBC 16.4 H (4.8-10.8) X10*3/uL RBC 5.32 (4.20-5.50) X10*6/uL Hgb 15.9 (12.0-16.0) g/dl Hct 48.2 H (37.0-47.0) % MCV 90.6 (80.0-98.0) fL MCH 29.9 (27.0-33.0) pg MCHC 33.0 (31.0-35.0) g/dl RDW 13.1 (11.0-16.0) % Plt Count 231 (160-400) X10*3/uL MPV 9.9 (9.4-12.3) fL Immature Gran % (Auto) 0.7 H (0.0-0.4) % Neut % (Auto) 88.9 H (45-73) % Lymph % (Auto) 4.0 L (20-40) % [place] % (Auto) 5.9 (2-11) % Eos % (Auto) 0.3 (0-4) % Baso % (Auto) 0.2 (0-2) % Lymph # (Auto) 0.7 L (1.2-4.9) X10*3/uL [place] # (Auto) 1.0 (0.1-1.2) X10*3/uL Eos # (Auto) 0.1 (0.0-0.4) X10*3/uL Baso # (Auto) 0.0 (0.0-0.2) X10*3/uL Abs Immat Gran (auto) 0.11 H (0.00-0.03) X10*3/uL Absolute Neuts (auto) 14.6 H (2.0-8.3) x10*3/uL Absolute Nucleated RBC 0.000 (0.0-0.012) X10*3/uL Nucleated RBC % (auto) 0.0 (0.0-0.2) /100WBC Sodium 142 (135-145) mmol/L Potassium 4.2 (3.3-5.1) mmol/L Chloride 106 (96-108) mmol/L Carbon Dioxide 23 (22-29) mmol/L Anion Gap 17 (12-20) BUN 15 (9-16) mg/dL Creatinine 1.50 H (0.5-1.4) mg/dL Estim Creat Clear Calc 61.5 Estimated GFR 38 Random Glucose 152 H (60-115) mg/dL Lactic Acid 4.4 H* (0.5-2.0) mmol/L Lactic Acid F/U @ 2Hr (0.5-2.0) mmol/L Calcium 9.7 (8.4-10.2) mg/dL Total Bilirubin 1.4 H (0.0-1.0) mg/dL Direct Bilirubin 0.6 H (0.0-0.5) mg/dL AST 34 H (5-31) U/L ALT 44 H (0-31) U/L Alkaline Phosphatase 127 H (39-117) U/L Total Protein 7.6 (6.5-8.0) g/dL Albumin 3.9 (3.5-5.0) g/dL Lipase 18 (8-78) U/L Urine Color Yellow Urine Appearance Turbid Urine pH 5.5 (5.0-9.0) Ur Specific [place] 1.010 (1.005-1.025) Urine Protein 100 (2+) H (Neg-Trace) mg/dL Urine Glucose (UA) Negative (Negative) mg/dL Urine Ketones 15 (Negative) mg/dL Urine Blood Large (3+) H (Negative) Urine Nitrite Negative (Negative) Ur Leukocyte Esterase Moderate (2+) H (Negative) Urine RBC >20 H (0-2) /HPF Urine WBC 21-50 (0-5) /HPF Ur Squamous Epith Cells 3-5 (0-2) /HPF Urine Bacteria None Seen (None Seen) Hyaline Casts 0-2 (0-2) /LPF Urine Yeast Present Urine Test NEGATIVE (NEGATIVE) Influenza Type A (PCR) NEGATIVE (Negative) Influenza Type B (PCR) NEGATIVE (Negative) RSV RNA Qual (PCR) NEGATIVE (Negative) SARS-CoV-2 RNA (RT-PCR) NEGATIVE (Negative) 08/12/23 Range/Units 14:11 WBC (4.8-10.8) X10*3/uL RBC (4.20-5.50) X10*6/uL Hgb (12.0-16.0) g/dl Hct (37.0-47.0) % MCV (80.0-98.0) fL MCH (27.0-33.0) pg MCHC (31.0-35.0) g/dl RDW (11.0-16.0) % Plt Count (160-400) X10*3/uL MPV (9.4-12.3) fL Immature Gran % (Auto) (0.0-0.4) % Neut % (Auto) (45-73) % Lymph % (Auto) (20-40) % Towner % (Auto) (2-11) % Eos % (Auto) (0-4) % Baso % (Auto) (0-2) % Lymph # (Auto) (1.2-4.9) X10*3/uL [place] # (Auto) (0.1-1.2) X10*3/uL Eos # (Auto) (0.0-0.4) X10*3/uL Baso # (Auto) (0.0-0.2) X10*3/uL Abs Immat Gran (auto) (0.00-0.03) X10*3/uL Absolute Neuts (auto) (2.0-8.3) x10*3/uL Absolute Nucleated RBC (0.0-0.012) X10*3/uL Nucleated RBC % (auto) (0.0-0.2) /100WBC Sodium (135-145) mmol/L Potassium (3.3-5.1) mmol/L Chloride (96-108) mmol/L Carbon Dioxide (22-29) mmol/L Anion Gap (12-20) BUN (9-16) mg/dL Creatinine (0.5-1.4) mg/dL Estim Creat Clear Calc Estimated GFR Random Glucose (60-115) mg/dL Lactic Acid (0.5-2.0) mmol/L Lactic Acid F/U @ 2Hr 0.8 (0.5-2.0) mmol/L Calcium (8.4-10.2) mg/dL Total Bilirubin (0.0-1.0) mg/dL Direct Bilirubin (0.0-0.5) mg/dL AST (5-31) U/L ALT (0-31) U/L Alkaline Phosphatase (39-117) U/L Total Protein (6.5-8.0) g/dL Albumin (3.5-5.0) g/dL Lipase (8-78) U/L Urine Color Urine Appearance Urine pH (5.0-9.0) Ur Specific [place] (1.005-1.025) Urine Protein (Neg-Trace) mg/dL Urine Glucose (UA) (Negative) mg/dL Urine Ketones (Negative) mg/dL Urine Blood (Negative) Urine Nitrite (Negative) Ur Leukocyte Esterase (Negative) Urine RBC (0-2) /HPF Urine WBC (0-5) /HPF Ur Squamous Epith Cells (0-2) /HPF Urine Bacteria (None Seen) Hyaline Casts (0-2) /LPF Urine Yeast Urine Test (NEGATIVE) Influenza Type A (PCR) (Negative) Influenza Type B (PCR) (Negative) RSV RNA Qual (PCR) (Negative) SARS-CoV-2 RNA (RT-PCR) (Negative) Independent Historian Clinical information obtained from an independent historian. History obtained from or confirmed by: Other (Son who confirms history) External Record Review External record reviewed: Outpatient record Discharge Plan Discharge Clinical Impression: Sepsis, Hydronephrosis concurrent with and due to calculi of kidney and ureter Patient Disposition: Admitted As Inpatient
[2023-08-12] MEDS: Ondansetron ODT 4 MG TAB.RAPDIS TRANSLINGU (11:35)
[2023-08-12 12:06] LABS: MANUAL DIFF FLAG NO
[2023-08-12 12:14] LABS: Basophils Percent Auto 0.2 % (0-2); Eosinophils Absolute Auto 0.1 X10*3/uL (0.0-0.4); Eosinophils Percent Auto 0.3 % (0-4); Hematocrit 48.2 % (37.0-47.0); Hemoglobin 15.9 g/dl (12.0-16.0); Imm Gran Abs Auto 0.11 X10*3/uL (0.00-0.03); Imm Gran Pct Auto 0.7 % (0.0-0.4); Lymphocytes Absolute Auto 0.7 X10*3/uL (1.2-4.9); Mean Corpuscular Hemoglobin 29.9 pg (27.0-33.0); Mean Corpuscular Volume 90.6 fL (80.0-98.0); Mean Platelet Volume 9.9 fL (9.4-12.3); Monocytes Percent Auto 5.9 % (2-11); Neutrophils Absolute Auto 14.6 x10*3/uL (2.0-8.3); Neutrophils Percent Auto 88.9 % (45-73); Platelet Count 231 X10*3/uL (160-400); Red Blood Count 5.32 X10*6/uL (4.20-5.50); Red Cell Distribution Width 13.1 % (11.0-16.0); White Blood Count 16.4 X10*3/uL (4.8-10.8)
[2023-08-12 12:22] LABS: Lactic Acid 4.4 mmol/L (0.5-2.0)
[2023-08-12 12:24] LABS: Alanine Aminotransferase 44 U/L (0-31); Albumin Level 3.9 g/dL (3.5-5.0); Alkaline Phosphatase 127 U/L (39-117); Anion Gap 17 (12-20); Aspartate Amino Transferase 34 U/L (5-31); Bilirubin Direct 0.6 mg/dL (0.0-0.5); Bilirubin Total 1.4 mg/dL (0.0-1.0); Blood Urea Nitrogen 15 mg/dL (9-16); Calcium 9.7 mg/dL (8.4-10.2); Carbon Dioxide 23 mmol/L (22-29); Chloride 106 mmol/L (96-108); Creatinine Clr Calc Pharmacy 61.5; Estimated Glomerular Filt Rate 38; Glucose Random 152 mg/dL (60-115); Potassium 4.2 mmol/L (3.3-5.1); Sodium 142 mmol/L (135-145); Total Protein 7.6 g/dL (6.5-8.0)
[2023-08-12] MEDS: Acetaminophen 325 MG TABLET 975 MG PO (12:40)
[2023-08-12] MEDS: cefTRIAXone sodium 2 GM in 0.9 % Sodium Chloride 50 ML IV (12:40)
[2023-08-12 12:50] LABS: Lipase 18 U/L (8-78)
[2023-08-12] MEDS: ondansetron HCL 4 MG/2 ML VIAL IVPUSH (12:59)
[2023-08-12] MEDS: Morphine Sulfate 4 MG/ML CARTRIDGE IVPUSH (12:59)
--- NOTE | 2023-08-12 13:11 | PC.NURSE ---
a&ox3, sinus tachy on patient monitor, tachypneic, febrile w/ oral temperature of 103.1. pt c/o 10/10 left sided flank pain. pt was seen in ED yesterday and had kidney stone. pt states increase in pain/nausea/vomiting/fever/dizziness. unable to take PO meds that she was prescribed yesterday d/t excessive vomiting. no sob/wob noted at this time. respirations even/slightly labored. 20gIV placed in the right AC - labs drawn and sent to lab. medications administered per provider order. family bedside. call carrera placed within reach.
--- NOTE | 2023-08-12 13:30 | PC.NURSE ---
urine obtained/sent to lab.
[2023-08-12 13:41] LABS: Influenza A PCR NEGATIVE (Negative); Influenza B PCR NEGATIVE (Negative); Resp Syncy Virus RNA Qual PCR NEGATIVE (Negative); SARS COV2 PCR INHOUSE NEGATIVE (Negative)
[2023-08-12 13:46] LABS: UPreg QC Valid YES; Urine Pregnancy NEGATIVE (NEGATIVE)
[2023-08-12 13:47] LABS: Appearance Urine Turbid; Color Urine Yellow; Glucose Urine UA Negative (Negative); Leukocyte Esterase Urine Moderate (2+) (Negative); Nitrite Urine Negative (Negative); PH 5.5 (5.0-9.0); UMIC TRIGGER UACC YES; Urine Blood Large (3+) (Negative); Urine Ketones 15 mg/dL (Negative); Urine Protein 100 (2+) mg/dL (Neg-Trace)
[2023-08-12 14:04] LABS: Reflex Lactate? Lactic Acid Added
[2023-08-12 14:09] LABS: Bacteria Urine None Seen (None Seen); Hyaline Casts Urine 0-2 /LPF (0-2); RBC Urine >20 /HPF (0-2); UACC Culture Trigger YES; WBC Urine 21-50 /HPF (0-5)
--- NOTE | 2023-08-12 14:12 | PC.NURSE ---
repeat lactic obtained/sent to lab.
[2023-08-12 14:27] LABS: ~Lactic Acid-LAB USE ONLY 0.8 mmol/L (0.5-2.0)
--- NOTE | 2023-08-12 15:10 | PHA.MEDREC ---
Pharmacy Consult ? Medication Reconciliation Pharmacy has completed the medication reconciliation.
--- NOTE | 2023-08-12 15:34 | PM.HPGS ---
History of Present Illness History of Present Illness Date of Service: 08/12/23 Chief complaint: vomiting dizzy fever Narrative: Adela Damon is a 47 year old female came back to ED with fever, tachycardia, received IV Rocephen. Creat worsened 1.5 CTAP left obstructing ureteral stone Review of Systems Review of Systems: Yes all other systems are reviewed and are negative Constitutional: Constitutional: Reports no additional constitutional complaints Eyes: Eyes: Reports no additional eye complaints ENT: Reports system reviewed and no additional complaints, except as documented Cardiovascular: Cardiovascular: Denies dyspnea Respiratory: Respiratory: Denies cough and Denies dyspnea Gastrointestinal: Gastrointestinal: Reports no additional gastrointestinal complaints Genitourinary: Genitourinary: Reports no additional female genitourinary complaints Musculoskeletal: Musculoskeletal: Reports no additional musculoskeletal complaints Integumentary/Breasts: Skin/Breast: Denies rash and Denies unusual bruising Neurologic: Reports system reviewed and no additional complaints, except as documented Psychiatric: Psychiatric: Reports no additional psychiatric complaints Endocrine: Endocrine: Reports no additional endocrine complaints Hematologic/Lymphatic: Hematologic/Lymphatic: Reports no additional hematologic/lymphatic complaints Allergic/Immunologic: Allergic/Immunologic: Reports no additional allergic/immunologic complaints [facility] Past Medical History Medical History Blurry vision, left eye Cervical spine pain Internal and external hemorrhoids without complication Hemorrhoids Renal calculi BMI 45.0-49.9, adult Thiamine deficiency Dyslipidemia GERD (gastroesophageal reflux disease) Hematuria Thickened endometrium Abnormal uterine bleeding (AUB) Pure hypercholesterolemia Insomnia Kidney stone Ectopic Family History Family History Mother Osteoporosis Glaucoma Migraine Ovarian cancer Uterine cancer Sister Uterine cancer Maternal Grandfather Diabetes mellitus Paternal Grandmother Diabetes mellitus HTN (hypertension) Maternal Uncle Throat cancer Father HIV (human immunodeficiency virus infection) Sister Heart abnormality Sister Heart abnormality Epilepsy Brother No problems noted. Son No problems noted. Family/Other Substance use disorder Surgical History Surgical History Hx of lithotripsy H/O laparoscopy Hx of section Hx of cholecystectomy Hx of laparoscopic gastric banding Social History Social History Housing: Apartment Alcohol intake: former Patient Tobacco Use Status: Never used Tobacco Smoked in Last 30 Days: No e-Cigarette/Vaping Use: Never Used Second Hand Smoke Exposure: Yes Use of substances other than those prescribed or required for medical reasons: No Advance Directives: No Advance Directives Information Provided: No Patient : No service: No 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al status: employed 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al exposures/hazards: No Gender identity: Female Cognitive needs: No Hearing needs: No Vision needs: Yes (glasses) Meds Allergies Allergy/AdvReac Type Severity Reaction Status Date / Time pollard Allergy Intermediate Itching Verified 08/11/23 12:17 raspberry Allergy Intermediate Itching Verified 08/11/23 12:17 Home Medications Medication Instructions Recorded Confirmed Last Taken Type levonorgestrel 21 mcg/24 hours (8 intrauterine 05/17/22 08/01/23 Unknown History yrs) 52 mg intrauterine device (Mirena) omeprazole 40 mg capsule,delayed 40 mg PO DAILY PRN Acid Reflux 08/12/23 08/12/23 Unknown History release ondansetron 4 mg disintegrating 4 mg PO Q8H PRN Nausea And Vomiting 08/12/23 08/12/23 Unknown History tablet pyridoxine (vitamin B6) 100 mg 100 mg PO DAILY 08/12/23 08/12/23 Unknown History tablet Physical Exam Vital Signs: Vital Signs: Last Vital Signs Temp 99.4 F 08/12/23 14:33 Pulse 111 H 08/12/23 14:33 Resp 25 H 08/12/23 14:33 BP 111/61 08/12/23 14:33 Pulse Ox 94 08/12/23 14:33 O2 Del Method Room Air 08/12/23 14:33 BMI result Body Mass Index 49.6 Const: General: cooperative and no acute distress Orientation/consciousness: patient oriented x3 HEENT: Head: Yes normal to inspection, Yes normocephalic and Yes atraumatic Eyes: Conjunctivae: conjunctivae normal Neck: Neck: Yes normal visual inspection and Yes trachea midline Chest: Chest palpation & inspection: normal inspection of the chest Resp: Effort & Inspection: normal respiratory effort Cardio: Rate: regular rate GI: Inspection: Yes normal to inspection Palpation (GI): Soft to palpation : General: Yes CVA tenderness on the left Back/Spine/Pelvis: Back: CVA tenderness Skin: General skin exam: no rashes or lesions noted Neuro: General: patient oriented x3 Extrem: General: No edema Psych: Appearance: grossly normal Results Results Labs: Short CBC 08/12/23 Range/Units 12:00 WBC 16.4 H (4.8-10.8) X10*3/uL Hgb 15.9 (12.0-16.0) g/dl Hct 48.2 H (37.0-47.0) % Plt Count 231 (160-400) X10*3/uL BMP 08/12/23 12:00 Sodium 142 Potassium 4.2 Chloride 106 Carbon Dioxide 23 BUN 15 Creatinine 1.50 H Calcium 9.7 Liver Function 08/12/23 Range/Units 12:00 Total Bilirubin 1.4 H (0.0-1.0) mg/dL Direct Bilirubin 0.6 H (0.0-0.5) mg/dL AST 34 H (5-31) U/L ALT 44 H (0-31) U/L Alkaline Phosphatase 127 H (39-117) U/L Albumin 3.9 (3.5-5.0) g/dL Urine 08/12/23 Range/Units 13:30 Urine Color Yellow Urine Appearance Turbid Urine pH 5.5 (5.0-9.0) Ur Specific [place] 1.010 (1.005-1.025) Urine Protein 100 (2+) H (Neg-Trace) mg/dL Urine Glucose (UA) Negative (Negative) mg/dL Urine Test NEGATIVE (NEGATIVE) Abdomen CT scan report/results: report reviewed and image reviewed CT scan - pelvis: report reviewed and image reviewed Additional studies: Date of Service: 08/11/23 EXAMINATION: CT ABDOMEN AND PELVIS WITHOUT CONTRAST CLINICAL INFORMATION: Left flank pain COMPARISON: 07/09/2023 TECHNIQUE: Multidetector volumetric imaging was performed from the superior aspect of the liver through the pubic symphysis. Sagittal and coronal reformatted images were obtained on the technologist's workstation. This CT examination was performed using dose optimization techniques as appropriate, variously including the following: *Automated exposure control *Adjustment of mA and/or kV according to patient size (this includes techniques or standardized protocols for targeted exams where dose is matched to indication/reason for exam; i.e. extremities or head) *Use of iterative reconstruction technique DLP: 12 626 mGy-cm FINDINGS: INDEPENDENT FREIGHT AGENT: Lap band and cholecystectomy clips. LUNG BASES: Mild atelectasis. Nonenlarged heart. No pericardial LIVER, GALLBLADDER, AND BILIARY TREE: Diffuse hypodensity to the liver parenchyma. No focal hepatic lesion or biliary ductal dilatation is present. The gallbladder has been surgically removed. PANCREAS: Unremarkable. SPLEEN: Unremarkable. Splenule. ADRENAL GLANDS: Unremarkable. KIDNEYS AND URETERS: The kidneys are normal in size, shape, and attenuation. 20 nonobstructing right upper and lower pole calculi. 2 mm or less nonobstructing left lower pole and left renal pelvic calculi. There is mild hydronephrosis. There is hydroureter to the level of the left psoas. Proximal to this, couple proximal ureteral calculi are identified, largest measuring 5 mm. No distal ureteral dilatation or calculi. No perinephric stranding. BLADDER: Underfilled likely accounting for thick crocker. Small amount of air within the urinary bladder. GASTROINTESTINAL TRACT: Small hiatal hernia. Lap band. Moderately distended unremarkable stomach. Nonobstructive bowel pattern. Unremarkable terminal ileum. Appendix not seen. Mild fecal retention. ABDOMINAL WALL: No significant hernia is appreciated. LYMPH NODES: Normal. VASCULAR: Unremarkable. PELVIC VISCERA: Phleboliths. IUD. OSSEOUS STRUCTURES: Unremarkable. IMPRESSION: Left hydronephrosis with proximal to mid hydroureter. Bilateral nonobstructing renal calculi. Proximal left ureteral calculi, largest measuring 5 mm, hydroureter extending beyond this level raising possibility of recently passed stone. Intravesicular air. In absence of recent instrumentation, infectious etiology questioned. Correlate with urinalysis. Assessment and Plan (1) Hydronephrosis concurrent with and due to calculi of kidney and ureter: Status: Acute (2) Sepsis: Status: Acute (3) Kidney stone on left side: Status: Acute Plan cysto left ureteral stent Quality Stroke Does the patient have a stroke diagnosis?: No VTE Prior VTE?: No VTE Risk Level:: Surgical - low VTE Device Contraindication: N/A - Device Ordered VTE Drug Contraindication: Treatment Not Tolerated Procedures Date of Service Date of Service: 08/12/23
--- NOTE | 2023-08-12 15:55 | PC.NURSE ---
pt remains sinus tachy/tachypneic. oral temperature decreased to 100.0 at this time despite medication administration. pt c/o 3/10 abdominal/flank pain and a 8/10 headache. pt speaking w/ ED provider at this time/aware of plan of care in regards to surgery. family bedside. call carrera placed within reach.
--- NOTE | 2023-08-12 16:08 | PC.NURSE ---
report given to RN in OR - will notify transport in ED when OR is ready for pt.
--- NOTE | 2023-08-12 16:48 | PC.NURSE ---
pt to surgery at this time.
--- NOTE | 2023-08-12 16:55 | MHC.SHP ---
Pre-Procedural Eval Section A Date of Service: 08/12/23 The patient is an INPATIENT: Yes The History & Physical has been completed within 30 days and I have reviewed it.: Yes Section B Chief Complaint: vomiting dizzy fever Allergies: Allergies Allergy/AdvReac Type Severity Reaction Status Date / Time pollard Allergy Intermediate Itching Verified 08/11/23 12:17 raspberry Allergy Intermediate Itching Verified 08/11/23 12:17 Plan Diagnosis/Plan: Unchanged I have reviewed the history and physical and performed a pertinent physical examination on my patient. No changes have occurred unless specified. Plan for Cystoscopy, Left retrograde ureteral stent. Risks discussed included but not limited to, possible need to repeat procedure if stone is not completely fragmented, Irritative voiding symptoms, bladder spasms, urgency, blood in urine. Time Spent With Patient Time: Total time managing care of this patient today ____ minutes.
--- NOTE | 2023-08-12 17:57 | W.PM.OPN ---
Operative Note Operative Note Date of Service: 08/12/23 Narrative: PreOperative Diagnosis:?? UTI sepsis, left hydronephrosis, secondary to obstructing ureteral stone Post Operative Diagnosis:?? ?UTI sepsis, left hydronephrosis, secondary to obstructing ureteral stone Procedure: - cystoscopy, left retrograde - stent insertion 6 fr by 24 cm Surgeon:?Dr Kareem Solorio Anesthesia:? General Procedure: After informed consent was verified the patient was brought to the operating placed on the OR table in supine position.? General Anesthesia was administered per protocol.? The patient was placed in lithotomy position, prepped and draped in the usual sterile fashion.? Safety pause time-out and side of surgery confirmed.? Antibiotics confirmed. IV Ancef 2 gm A 22 [place] cystoscope was inserted transurethrally, The bladder was visualized.? Both ureteric orifices were in normal position. The? left ureteric orifice was cannulated, urine was sent for culture and a retrograde examination was performed, A hydrophilic guidewire was placed up to the level of the renal pelvis under fluoroscopy. A 6 fr by 24 cm stent was placed The bladder was emptied.? The rigid cystoscope was removed. ? The patient tolerated the procedure well and was brought to the recovery room in stable condition. Complications: None Drains: 6fr by 24 cm stent
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
[2023-08-12 18:05] LABS: Glucose, Whole Blood 142 mg/dL (60-115)
--- NOTE | 2023-08-12 18:21 | P.CONHOSP_ITS ---
History of Present Illness Data of Consult Service Date: 08/12/23 Requesting physician: Kareem Solorio Primary Care Provider: Milly Prince MD [facility] Reason for consult: sepsis, diabetes 47-year-old female with history of hyperlipidemia, wws-mfljsrz-[id number] type 2 diabetes, GERD, nephrolithiasis admitted to for management of obstructive uropathy with hydronephrosis s/p left retrograde cystoscopy with stent insertion with consult placed to hospitalist service for management of sepsis and diabetes. On arrival to the ED, patient was severely septic with fevers up to 103.1, tachycardic to 135, tachypneic to 40 and leukocytosis 16.4 No hypotension. She was also noted to have MIRI with creatinine 1.50, BUN 15 likely secondary to obstructive uropathy. In the ED, given 2 g IV ceftriaxone. Initial lactic acid 4.4, repeat 0.8 following IVF. Following cystoscopy with stent placement, patient remains septic. Febrile to 102.7, tachycardic to 121, tachypneic. She is reporting a headache, but otherwise has no complaints. Review of Systems 2 Review of Systems: General: No fevers, malaise, unintentional weight loss HEENT: No blurred vision, diplopia. No sore throat, nasal congestion, rhinorrhea, sinus pain, ear pain Cardiovascular: No chest pain, palpitations, or leg edema Respiratory: No shortness of breath, wheezing, cough GI: No abdominal pain, nausea, vomiting, diarrhea, constipation, melena, hematochezia : No dysuria, hematuria, increased urinary frequency, decreased urinary output MSK: No myalgia, back pain Neuro: +headache. No weakness, paresthesias Skin: No rashes or lesions [facility] Medical History Blurry vision, left eye Cervical spine pain Internal and external hemorrhoids without complication Hemorrhoids Renal calculi BMI 45.0-49.9, adult Thiamine deficiency Dyslipidemia GERD (gastroesophageal reflux disease) Hematuria Thickened endometrium Abnormal uterine bleeding (AUB) Pure hypercholesterolemia Insomnia Kidney stone Ectopic Family History Mother Osteoporosis Glaucoma Migraine Ovarian cancer Uterine cancer Sister Uterine cancer Maternal Grandfather Diabetes mellitus Paternal Grandmother Diabetes mellitus HTN (hypertension) Maternal Uncle Throat cancer Father HIV (human immunodeficiency virus infection) Sister Heart abnormality Sister Heart abnormality Epilepsy Brother No problems noted. Son No problems noted. Family/Other Substance use disorder Surgical History Hx of lithotripsy H/O laparoscopy Hx of section Hx of cholecystectomy Hx of laparoscopic gastric banding Social History Household Members: Children Housing: House Do you presently have visiting nurse or other home services: No Alcohol intake: former Patient Tobacco Use Status: Never used Tobacco Smoked in Last 30 Days: No e-Cigarette/Vaping Use: Never Used Second Hand Smoke Exposure: Yes Use of substances other than those prescribed or required for medical reasons: No Have you been hit, kicked, punched, or otherwise hurt by someone within the past year? If so, by whom?: No Do you feel safe in your current relationship?: No Current Relationship Is there a partner from a previous relationship who is making you feel unsafe now?: No Advance Directives: No Advance Directives Information Provided: No Do you have thoughts of harming others: None Do you have a plan to hurt others: No Plan Recently lost weight without trying: No Patient : No Poor oral hygiene: No service: No 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al status: employed 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al exposures/hazards: No Gender identity: Female Cognitive needs: No Hearing needs: No Vision needs: Yes (glasses) Meds Allergies Allergy/AdvReac Type Severity Reaction Status Date / Time pollard Allergy Intermediate Itching Verified 08/11/23 12:17 raspberry Allergy Intermediate Itching Verified 08/11/23 12:17 Active Medications: Current Medications Acetaminophen (Acetaminophen 325 Mg Tablet) 650 mg PO Q6H PRN PRN Reason: Pain, Mild (Pain Scale 1-3) Hydrocodone Bitart/Acetaminophen (Hydrocodone Bit/Acetam 5/325 Tablet) 1 tab PO Q4H PRN PRN Reason: Pain, Moderate(Pain Scale 4-6) Amitriptyline HCl (Amitriptyline Hcl 10 Mg Tablet) 10 mg PO BEDTIME LATRELL Atorvastatin Calcium (Atorvastatin Calcium 20 Mg Tablet) 20 mg PO BEDTIME LATRELL Dextrose (Dextrose 50 % 25 Gm/50 Ml Syringe) 25 gm IVPUSH Q15M PRN; Protocol PRN Reason: per Hypoglycemia Standing Ord. Docusate Sodium (Docusate Sodium 100 Mg Capsule) 100 mg PO BID [facility] Fentanyl (Fentanyl Citrate/Pf 100 Mcg/2 Ml Vial) 50 mcg IVPUSH Q5M PRN; Protocol PRN Reason: Pain, Severe (Pain Scale 7-10) Glucose (Glucose Gel 15 Gm Gel..Gram.) 15 gm PO Q15M PRN; Protocol PRN Reason: per Hypoglycemia Standing Ord. Hydromorphone HCl (Hydromorphone Hcl 1 Mg/Ml Syringe) 0.5 mg IVPUSH Q3H PRN; Protocol PRN Reason: Pain, Severe (Pain Scale 7-10) Ceftriaxone Sodium 2 gm/ (Sodium Chloride) 50 mls @ 100 mls/hr IV Q24H [facility] Insulin Human Lispro (Insulin Lispro 100 Unit/Ml 3 Ml Vial) 0 unit SUBCUT QIDACHS [facility]; Protocol Magnesium Hydroxide (Milk Of Magnesia 30 Ml Oral.Susp) 30 ml PO DAILY PRN PRN Reason: Constipation Melatonin (Melatonin 3 Mg Tablet) 3 mg PO BEDTIME PRN PRN Reason: Insomnia Metformin HCl (Metformin Hcl 500 Mg Tablet) 500 mg PO BID [facility] Omeprazole (Omeprazole 40 Mg Capsule.Dr) 40 mg PO DAILY@0630 [facility] Ondansetron HCl (Ondansetron Odt 4 Mg Tab.Rapdis) 4 mg TRANSLINGU Q8H PRN PRN Reason: Nausea And Vomiting Ondansetron HCl (Ondansetron Hcl 4 Mg/2 Ml Vial) 4 mg IVPUSH Q8H PRN PRN Reason: Nausea and Vomiting Ondansetron HCl (Ondansetron Hcl 4 Mg/2 Ml Vial) 4 mg IVPUSH ONCE PRN PRN Reason: Nausea and Vomiting Oxycodone HCl (Oxycodone Hcl Immed Release 5 Mg Tablet) 5 mg PO ONCE PRN PRN Reason: Pain, Severe (Pain Scale 7-10) Senna (Sennosides 8.6 Mg Tablet) 17.2 mg PO BEDTIME PRN PRN Reason: Constipation Sodium Chloride (0.9 % Sodium Chloride Flush 3 Ml Syringe) 3 ml IVFLUSH QSHIFT [facility] Tolterodine Tartrate (Tolterodine Tartrate La 4 Mg Cap.Er.24h) 4 mg PO DAILY [facility] Home Medications Medication Instructions Recorded Confirmed Last Taken Type levonorgestrel 21 mcg/24 hours (8 intrauterine 05/17/22 08/01/23 Unknown History yrs) 52 mg intrauterine device (Mirena) omeprazole 40 mg capsule,delayed 40 mg PO DAILY PRN Acid Reflux 08/12/23 08/12/23 Unknown History release ondansetron 4 mg disintegrating 4 mg PO Q8H PRN Nausea And Vomiting 08/12/23 08/12/23 Unknown History tablet pyridoxine (vitamin B6) 100 mg 100 mg PO DAILY 08/12/23 08/12/23 Unknown History tablet Physical Exam 2 Vital Signs and Narrative: Vital Signs: Last Vital Signs Temp 101.2 F H 08/12/23 18:00 Pulse 121 H 08/12/23 18:10 Resp 40 H 08/12/23 18:10 BP 130/66 08/12/23 18:10 Pulse Ox 96 08/12/23 18:10 O2 Del Method Simple Mask 08/12/23 18:10 BMI result Body Mass Index 49.6 Constitutional - Awake and Alert, No apparent distress Eyes - PERRLA, EOMI Cardiovascular - S1S2, RRR, No edema Respiratory - Normal lung expansion, Normal respiratory effort, No respiratory distress, CTA bilaterally Gastrointestinal - NT / ND; +BS; No rebound or guarding Extremities - no calf tenderness bilaterally, no swelling Skin - Warm/Dry Neurological - Alert & oriented x3 Psychological - Appropriate affect Results Labs 08/12/23 12:00 08/12/23 12:00 Labs: Laboratory Results - last 24 hr 08/12/23 08/12/23 08/12/23 12:00 12:37 13:30 MCV 90.6 MCH 29.9 MCHC 33.0 RDW 13.1 Plt Count 231 MPV 9.9 Immature Gran % (Auto) 0.7 H Neut % (Auto) 88.9 H Lymph % (Auto) 4.0 L [place] % (Auto) 5.9 Eos % (Auto) 0.3 Baso % (Auto) 0.2 Lymph # (Auto) 0.7 L [place] # (Auto) 1.0 Eos # (Auto) 0.1 Baso # (Auto) 0.0 Abs Immat Gran (auto) 0.11 H Absolute Neuts (auto) 14.6 H Absolute Nucleated RBC 0.000 Nucleated RBC % (auto) 0.0 Anion Gap 17 Estim Creat Clear Calc 61.5 Estimated GFR 38 POC Glucose Random Glucose 152 H Lactic Acid 4.4 H* Lactic Acid F/U @ 2Hr Calcium 9.7 Total Bilirubin 1.4 H Direct Bilirubin 0.6 H AST 34 H ALT 44 H Alkaline Phosphatase 127 H Total Protein 7.6 Albumin 3.9 Lipase 18 Urine Color Yellow Urine Appearance Turbid Urine pH 5.[address] [place] 1.010 Urine Protein 100 (2+) H Urine Glucose (UA) Negative Urine Ketones 15 Urine Blood Large (3+) H Urine Nitrite Negative Ur Leukocyte Esterase Moderate (2+) H Urine RBC >20 H Urine WBC 21-50 Ur Squamous Epith Cells 3-5 Urine Bacteria None Seen Hyaline Casts 0-2 Urine Yeast Present Urine Test NEGATIVE Influenza Type A (PCR) NEGATIVE Influenza Type B (PCR) NEGATIVE RSV RNA Qual (PCR) NEGATIVE SARS-CoV-2 RNA (RT-PCR) NEGATIVE 08/12/23 08/12/23 14:11 17:58 MCV MCH MCHC RDW Plt Count MPV Immature Gran % (Auto) Neut % (Auto) Lymph % (Auto) [place] % (Auto) Eos % (Auto) Baso % (Auto) Lymph # (Auto) [place] # (Auto) Eos # (Auto) Baso # (Auto) Abs Immat Gran (auto) Absolute Neuts (auto) Absolute Nucleated RBC Nucleated RBC % (auto) Anion Gap Estim Creat Clear Calc Estimated GFR POC Glucose 142 H Random Glucose Lactic Acid Lactic Acid F/U @ 2Hr 0.8 Calcium Total Bilirubin Direct Bilirubin AST ALT Alkaline Phosphatase Total Protein Albumin Lipase Urine Color Urine Appearance Urine pH Ur Specific [place] Urine Protein Urine Glucose (UA) Urine Ketones Urine Blood Urine Nitrite Ur Leukocyte Esterase Urine RBC Urine WBC Ur Squamous Epith Cells Urine Bacteria Hyaline Casts Urine Yeast Urine Test Influenza Type A (PCR) Influenza Type B (PCR) RSV RNA Qual (PCR) SARS-CoV-2 RNA (RT-PCR) Assessment and Plan (1) Hydronephrosis concurrent with and due to calculi of kidney and ureter: Status: Acute (2) Sepsis: Status: Acute Plan 47-year-old female with history of hyperlipidemia, [id number]-[id number] type 2 diabetes, GERD, nephrolithiasis admitted to for management of obstructive uropathy with hydronephrosis s/p left retrograde cystoscopy with stent insertion with consult placed to hospitalist service for management of sepsis and diabetes. #Obstructive uropathy with left hydronephrosis s/p cystoscopy and left ureteral stent placement -plan per urology #severe sepsis- likely urinary source -leukocytosis 16, tachycardic, febrile. Acute lactic acidosis likely related to severe sepsis and metformin use. Resolved following IVF -2 g IV ceftriaxone daily -follow cultures -tylenol prn fevers # acute kidney injury- likely secondary to obstructive uropathy -given IVF in the ED -follow BMP -avoid nephrotoxins # oav-sukbhyi-hulfesawl type 2 diabetes -POC glucose -diabetic diet -Humalog on sliding scale -hold oral antihyperglycemics Thank you for this consult, will continue following along with you.
--- NOTE | 2023-08-12 18:36 | PC.NURSE ---
called nursing supervisor fleshing and spoke to michi. [place] [facility] [facility]. awaiting for admission to occur in order to transfer patient.
--- NOTE | 2023-08-12 18:42 | PC.NURSE ---
c/o mid sternal chest pain. radiating into both sides of her jaw. non radiating pain in her arms. 10/14. pressure pain. when she was resting it was painfula dn when she presses on it hurts. maintenance and engineering manager by bedside. anesthesia called.
--- NOTE | 2023-08-12 18:46 | PC.NURSE ---
md lutz by bedside evaluating patient with executive sales assistant. positional pain. no new orders needed.
--- NOTE | 2023-08-12 19:20 | PC.NURSE ---
voided on bed whatley. 450ml serosang. output.
[2023-08-12] MEDS: Docusate Sodium 100 MG CAPSULE PO (20:34)
[2023-08-12] MEDS: Atorvastatin Calcium 20 MG TABLET PO (20:34)
[2023-08-12] MEDS: Amitriptyline HCl 10 MG TABLET PO (20:34)
[2023-08-12] MEDS: Acetaminophen 325 MG TABLET 650 MG PO (20:34)
[2023-08-12] MEDS: 0.9 % Sodium Chloride Flush 3 ML SYRINGE IVFLUSH (20:37)
[2023-08-12 20:43] LABS: Glucose, Whole Blood 246 mg/dL (60-115)
[2023-08-12] MEDS: Insulin Lispro 100 UNIT/ML 3 ML VIAL SUBCUT (20:47)
[2023-08-13] VITALS (13 sets, daily range): BP systolic 116–146; BP diastolic 65–80; PULSE 86–117; RESP 16–20; TEMP 36.1–38.8; O2SAT 94–99
[2023-08-13] MEDS: Acetaminophen 325 MG TABLET 650 MG PO ×2 (02:50→12:02)
[2023-08-13] MEDS: Omeprazole 40 MG CAPSULE.DR PO (05:55)
[2023-08-13] MEDS: HYDROcodone Bit/Acetam 5/325 TABLET 1 TAB PO ×2 (06:50→21:44)
[2023-08-13 07:36] LABS: Glucose, Whole Blood 155 mg/dL (60-115)
[2023-08-13] MEDS: Tolterodine Tartrate LA 4 MG CAP.ER.24H PO (08:01)
[2023-08-13] MEDS: Docusate Sodium 100 MG CAPSULE PO ×2 (08:01→21:46)
[2023-08-13] MEDS: Insulin Lispro 100 UNIT/ML 3 ML VIAL SUBCUT ×2 (08:02→16:36)
[2023-08-13] MEDS: 0.9 % Sodium Chloride Flush 3 ML SYRINGE IVFLUSH ×2 (08:03→21:47)
[2023-08-13 09:15] LABS: MANUAL DIFF FLAG NO
--- NOTE | 2023-08-13 09:18 | MHC.CM.PN ---
Pt is SSO, self-care, lives at home with her son. Her grandfather will transport her home. Educated on HCP, pt requested form to look at, CM to assist if pt decides to fill it out. PCP: Dr. Milly Prince
[2023-08-13 09:29] LABS: Basophils Percent Auto 0.3 % (0-2); Eosinophils Percent Auto 0.1 % (0-4); Hematocrit 43.5 % (37.0-47.0); Hemoglobin 14.3 g/dl (12.0-16.0); Imm Gran Abs Auto 0.11 X10*3/uL (0.00-0.03); Lymphocytes Absolute Auto 0.4 X10*3/uL (1.2-4.9); Lymphocytes Percent Auto 3.6 % (20-40); Mean Corpuscular HGB Conc 32.9 g/dl (31.0-35.0); Mean Corpuscular Hemoglobin 28.9 pg (27.0-33.0); Mean Corpuscular Volume 88.1 fL (80.0-98.0); Mean Platelet Volume 10.1 fL (9.4-12.3); Monocytes Absolute Auto 0.6 X10*3/uL (0.1-1.2); Monocytes Percent Auto 5.3 % (2-11); Neutrophils Absolute Auto 9.7 x10*3/uL (2.0-8.3); Neutrophils Percent Auto 89.7 % (45-73); Platelet Count 212 X10*3/uL (160-400); Red Blood Count 4.94 X10*6/uL (4.20-5.50); Red Cell Distribution Width 13.2 % (11.0-16.0); White Blood Count 10.8 X10*3/uL (4.8-10.8)
[2023-08-13 09:34] LABS: Anion Gap 14 (12-20); Blood Urea Nitrogen 11 mg/dL (9-16); Carbon Dioxide 23 mmol/L (22-29); Chloride 107 mmol/L (96-108); Estimated Glomerular Filt Rate 57; Glucose Random 156 mg/dL (60-115); Potassium 3.7 mmol/L (3.3-5.1); Sodium 140 mmol/L (135-145)
--- NOTE | 2023-08-13 10:34 | HO.PM.IMPN ---
Subjective Subjective Date of Service: 08/13/23 Interval History: Seen in follow up for severe sepsis, UTI, diabetes Interval history: fevers resolved, remains mildly tachycardic. WRB trending down. Creat back to baseline. No abd pain, n/v/d, dysuria, sandy hematuria, sob, lightheadedness, headaches, chest pain. Review of Systems Review of Systems: Yes all other systems are reviewed and are negative Physical Exam Vital Signs: Vital Signs: Last Vital Signs Temp 97.5 F 08/13/23 07:53 Pulse 101 H 08/13/23 07:53 Resp 18 08/13/23 07:53 BP 146/79 H 08/13/23 07:53 Pulse Ox 97 08/13/23 07:53 O2 Del Method Room Air 08/13/23 07:53 O2 Flow Rate 1 08/12/23 19:43 BMI result Body Mass Index 50.6 Constitutional - Awake and Alert, No apparent distress Eyes - PERRLA, EOMI Cardiovascular - S1S2, RRR, No edema Respiratory - Normal lung expansion, Normal respiratory effort, No respiratory distress, CTA bilaterally Gastrointestinal - NT / ND; +BS; No rebound or guarding Extremities - no calf tenderness bilaterally, no swelling Skin - Warm/Dry Neurological - Alert & oriented x3 Psychological - Appropriate affect Objective Data Active Medications Acetaminophen (Acetaminophen 325 Mg Tablet) 650 mg PO Q6H PRN PRN Reason: Pain, Mild (Pain Scale 1-3) Last Admin: 08/13/23 02:50 Dose: 650 mg Documented By: VAIBHAV Hydrocodone Bitart/Acetaminophen (Hydrocodone Bit/Acetam 5/325 Tablet) 1 tab PO Q4H PRN PRN Reason: Pain, Moderate(Pain Scale 4-6) Last Admin: 08/13/23 06:50 Dose: 1 tab Documented By: VAIBHAV Amitriptyline HCl (Amitriptyline Hcl 10 Mg Tablet) 10 mg PO BEDTIME LATRELL Last Admin: 08/12/23 20:34 Dose: 10 mg Documented By: VAIBHAV Atorvastatin Calcium (Atorvastatin Calcium 20 Mg Tablet) 20 mg PO BEDTIME LATRELL Last Admin: 08/12/23 20:34 Dose: 20 mg Documented By: VAIBHAV Dextrose (Dextrose 50 % 25 Gm/50 Ml Syringe) 25 gm IVPUSH Q15M PRN; Protocol PRN Reason: per Hypoglycemia Standing Ord. Docusate Sodium (Docusate Sodium 100 Mg Capsule) 100 mg PO BID [facility] Last Admin: 08/13/23 08:01 Dose: 100 mg Documented By: MELE Fentanyl (Fentanyl Citrate/Pf 100 Mcg/2 Ml Vial) 50 mcg IVPUSH Q5M PRN; Protocol PRN Reason: Pain, Severe (Pain Scale 7-10) Glucose (Glucose Gel 15 Gm Gel..Gram.) 15 gm PO Q15M PRN; Protocol PRN Reason: per Hypoglycemia Standing Ord. Hydromorphone HCl (Hydromorphone Hcl 1 Mg/Ml Syringe) 0.5 mg IVPUSH Q3H PRN; Protocol PRN Reason: Pain, Severe (Pain Scale 7-10) Ceftriaxone Sodium 2 gm/ (Sodium Chloride) 50 mls @ 100 mls/hr IV Q24H [facility] Insulin Human Lispro (Insulin Lispro 100 Unit/Ml 3 Ml Vial) 0 unit SUBCUT QIDACHS [facility]; Protocol Last Admin: 08/13/23 08:02 Dose: 2 unit Documented By: MELE Magnesium Hydroxide (Milk Of Magnesia 30 Ml Oral.Susp) 30 ml PO DAILY PRN PRN Reason: Constipation Melatonin (Melatonin 3 Mg Tablet) 3 mg PO BEDTIME PRN PRN Reason: Insomnia Omeprazole (Omeprazole 40 Mg Capsule.Dr) 40 mg PO DAILY@0630 [facility] Last Admin: 08/13/23 05:55 Dose: 40 mg Documented By: VAIBHAV Ondansetron HCl (Ondansetron Odt 4 Mg Tab.Rapdis) 4 mg TRANSLINGU Q8H PRN PRN Reason: Nausea And Vomiting Ondansetron HCl (Ondansetron Hcl 4 Mg/2 Ml Vial) 4 mg IVPUSH Q8H PRN PRN Reason: Nausea and Vomiting Ondansetron HCl (Ondansetron Hcl 4 Mg/2 Ml Vial) 4 mg IVPUSH ONCE PRN PRN Reason: Nausea and Vomiting Oxycodone HCl (Oxycodone Hcl Immed Release 5 Mg Tablet) 5 mg PO ONCE PRN PRN Reason: Pain, Severe (Pain Scale 7-10) Senna (Sennosides 8.6 Mg Tablet) 17.2 mg PO BEDTIME PRN PRN Reason: Constipation Sodium Chloride (0.9 % Sodium Chloride Flush 3 Ml Syringe) 3 ml IVFLUSH QSHIFT [facility] Last Admin: 08/13/23 08:03 Dose: 3 ml Documented By: MELE Tolterodine Tartrate (Tolterodine Tartrate La 4 Mg Cap.Er.24h) 4 mg PO DAILY [facility] Last Admin: 08/13/23 08:01 Dose: 4 mg Documented By: MELE Labs 08/13/23 08:27 08/13/23 08:27 Labs: Laboratory Results - last 24 hr 08/12/23 08/12/23 08/12/23 12:00 12:37 13:30 MCV 90.6 MCH 29.9 MCHC 33.0 RDW 13.1 Plt Count 231 MPV 9.9 Immature Gran % (Auto) 0.7 H Neut % (Auto) 88.9 H Lymph % (Auto) 4.0 L [place] % (Auto) 5.9 Eos % (Auto) 0.3 Baso % (Auto) 0.2 Lymph # (Auto) 0.7 L [place] # (Auto) 1.0 Eos # (Auto) 0.1 Baso # (Auto) 0.0 Abs Immat Gran (auto) 0.11 H Absolute Neuts (auto) 14.6 H Absolute Nucleated RBC 0.000 Nucleated RBC % (auto) 0.0 Anion Gap 17 Estim Creat Clear Calc 61.5 Estimated GFR 38 POC Glucose Random Glucose 152 H Lactic Acid 4.4 H* Lactic Acid F/U @ 2Hr Calcium 9.7 Total Bilirubin 1.4 H Direct Bilirubin 0.6 H AST 34 H ALT 44 H Alkaline Phosphatase 127 H Total Protein 7.6 Albumin 3.9 Lipase 18 Urine Color Yellow Urine Appearance Turbid Urine pH 5.5 Ur Specific [place] 1.010 Urine Protein 100 (2+) H Urine Glucose (UA) Negative Urine Ketones 15 Urine Blood Large (3+) H Urine Nitrite Negative Ur Leukocyte Esterase Moderate (2+) H Urine RBC >20 H Urine WBC 21-50 Ur Squamous Epith Cells 3-5 Urine Bacteria None Seen Hyaline Casts 0-2 Urine Yeast Present Urine Test NEGATIVE Influenza Type A (PCR) NEGATIVE Influenza Type B (PCR) NEGATIVE RSV RNA Qual (PCR) NEGATIVE SARS-CoV-2 RNA (RT-PCR) NEGATIVE 08/12/23 08/12/23 08/12/23 14:11 17:58 20:38 MCV MCH MCHC RDW Plt Count MPV Immature Gran % (Auto) Neut % (Auto) Lymph % (Auto) [place] % (Auto) Eos % (Auto) Baso % (Auto) Lymph # (Auto) [place] # (Auto) Eos # (Auto) Baso # (Auto) Abs Immat Gran (auto) Absolute Neuts (auto) Absolute Nucleated RBC Nucleated RBC % (auto) Anion Gap Estim Creat Clear Calc Estimated GFR POC Glucose 142 H 246 H Random Glucose Lactic Acid Lactic Acid F/U @ 2Hr 0.8 Calcium Total Bilirubin Direct Bilirubin AST ALT Alkaline Phosphatase Total Protein Albumin Lipase Urine Color Urine Appearance Urine pH Ur Specific [place] Urine Protein Urine Glucose (UA) Urine Ketones Urine Blood Urine Nitrite Ur Leukocyte Esterase Urine RBC Urine WBC Ur Squamous Epith Cells Urine Bacteria Hyaline Casts Urine Yeast Urine Test Influenza Type A (PCR) Influenza Type B (PCR) RSV RNA Qual (PCR) SARS-CoV-2 RNA (RT-PCR) 08/13/23 08/13/23 07:33 08:27 MCV 88.1 MCH 28.9 MCHC 32.9 RDW 13.2 Plt Count 212 MPV 10.1 Immature Gran % (Auto) 1.0 H Neut % (Auto) 89.7 H Lymph % (Auto) 3.6 L [place] % (Auto) 5.3 Eos % (Auto) 0.1 Baso % (Auto) 0.3 Lymph # (Auto) 0.4 L [place] # (Auto) 0.6 Eos # (Auto) 0.0 Baso # (Auto) 0.0 Abs Immat Gran (auto) 0.11 H Absolute Neuts (auto) 9.7 H Absolute Nucleated RBC 0.000 Nucleated RBC % (auto) 0.0 Anion Gap 14 Estim Creat Clear Calc 89.0 Estimated GFR 57 POC Glucose 155 H Random Glucose 156 H Lactic Acid Lactic Acid F/U @ 2Hr Calcium 9.0 D Total Bilirubin Direct Bilirubin AST ALT Alkaline Phosphatase Total Protein Albumin Lipase Urine Color Urine Appearance Urine pH Ur Specific [place] Urine Protein Urine Glucose (UA) Urine Ketones Urine Blood Urine Nitrite Ur Leukocyte Esterase Urine RBC Urine WBC Ur Squamous Epith Cells Urine Bacteria Hyaline Casts Urine Yeast Urine Test Influenza Type A (PCR) Influenza Type B (PCR) RSV RNA Qual (PCR) SARS-CoV-2 RNA (RT-PCR) Assessment and Plan (1) Hydronephrosis concurrent with and due to calculi of kidney and ureter: Status: Acute (2) Sepsis: Status: Acute (3) Urinary tract infection: Status: Inactive Plan 47-year-old female with history of hyperlipidemia, [id number] type 2 diabetes, GERD, nephrolithiasis admitted to for management of obstructive uropathy with hydronephrosis s/p left retrograde cystoscopy with stent insertion with consult placed to hospitalist service for management of sepsis and diabetes. #Obstructive uropathy with left hydronephrosis s/p cystoscopy and left ureteral stent placement -plan per urology #severe sepsis- likely urinary source -Severe sepsis/sepsis resolved -Change to 1 g IV ceftriaxone daily (initiated 08/12) -Transition to oral abx at the recommendation or urology -follow cultures -tylenol prn fevers # acute kidney injury- likely secondary to obstructive uropathy -Resolved following stent placement and IVF -follow BMP -avoid nephrotoxins # [id number] type 2 diabetes- without hyperglycemia -POC glucose -diabetic diet -Humalog on sliding scale -hold oral antihyperglycemics. Resume on discharge Thank you for this consult, will continue following along with you. Quality Stroke Does the patient have a stroke diagnosis?: No VTE Prior VTE?: No VTE Risk Level:: Surgical - low VTE Device Contraindication: N/A - Device Ordered VTE Drug Contraindication: Treatment Not Tolerated
[2023-08-13 11:35] LABS: Glucose, Whole Blood 129 mg/dL (60-115)
[2023-08-13] MEDS: cefTRIAXone sodium 1 GM in 0.9 % Sodium Chloride 50 ML IV ×2 (12:02→16:37)
--- NOTE | 2023-08-13 14:09 | ECG_ITS ---
Test Reason : chest pain Blood Pressure : / mmHG Vent. Rate : 121 BPM Atrial Rate : 121 BPM P-R Int : 180 ms QRS Dur : 084 ms QT Int : 300 ms P-R-T Axes : 054 -18 049 degrees QTc Int : 426 ms Sinus tachycardia Septal infarct (cited on or before 11-AUG-2023) Abnormal ECG When compared with ECG of 11-AUG-2023 12:30, Questionable change in initial forces of Anteroseptal leads Referred By: Mirian White Electronically Signed By:Jhon Castro
--- NOTE | 2023-08-13 14:32 | PM.EVENT ---
Event Note Date of Service: 08/13/23 Event Note: Pt reporting midsternal non radiating chest pain described as a tightness. Worse with deep inspiration and reproducible to palpation. Denies cough, sob, wheezing. She is also reporting R ear pain. No purulent drainage or hearing loss. Reports sinus pressure that started yesterday radiating to the jaw bilaterally as well as sore throat. She is febrile to 101.7, HR 109, vitals otherwise stable. EKG shows Sinus tachycardia, rate 122, no st/t wave abnormality. On exam she is a&ox3. R ear- tenderness with manipulation of the pinna and tragus with mild swelling in the preauricular area. There is mild erythema of the canal without any edema. Tympanic membrane with mild erythema but no bulging. Bilateral maxillary and frontal sinus pressure to palpation. No appreciate dental abscesses. Posterior oropharynx with mild erythema. 2+ tonsillar adenopathy with tonsillar crypts but no exudates. There is bilateral tonsillar adenopathy. Chest tenderness is reproducible to palpation. Heart is regular rhythm with tachycardia, normal S1/S2. Lungs are clear to auscultation bilaterally. Pt appears to have an R otitis externa. Likely has viral URI with persistent fevers and tachycardia. Will check for COVID-19, RSV, influenza. Chest pain is unlikely to be cardiac in origin, likely musculoskeletal. Plan: #UTI sepsis -repeat blood cultures given persistent fevers per Urology. Initial cultures negative thusfar -continue ceftriaxone -tylenol prn fevers -follow cultures #Suspected URI -nasal swab for COVID-19, RSV, influenza -strep a nucleic acid swab -neomycin/polymixin/hc for otitis externa -warm salt water gargles -throat lozenges -sudafed prn -ibuprofen prn #Constipation -miralax and senna Time Spent With Patient Time: Total time managing care of this patient today ____ minutes.
[2023-08-13] MEDS: polyethylene glycoL 3350 17 GM POWD.PACK PO (15:02)
[2023-08-13] MEDS: Throat Lozenge, Medicated LOZENGE 1 LOZENGE MUCOUS MEM (15:02)
[2023-08-13] MEDS: Fluticasone Propionate Nasal 16 GM SPRAY 1 SPRAY NOSTRIL-B ×2 (15:03→21:49)
[2023-08-13] MEDS: Sennosides 8.6 MG TABLET 17.2 MG PO (15:03)
[2023-08-13] MEDS: Ibuprofen 600 MG TABLET PO ×2 (15:03→23:00)
[2023-08-13] MEDS: NeoMYCIN/Polymyxin/HC Otic Sol BOTTLE 4 DROP EAR-RIGHT ×2 (15:03→21:49)
[2023-08-13 15:07] LABS: IDNOW Serial# 08D9AD1C; Strep A Nucleic Acid Negative (Negative)
[2023-08-13 15:34] LABS: Influenza A PCR NEGATIVE (Negative); Influenza B PCR NEGATIVE (Negative); Resp Syncy Virus RNA Qual PCR NEGATIVE (Negative); SARS COV2 PCR INHOUSE NEGATIVE (Negative)
[2023-08-13 15:41] LABS: Troponin-I High Sensitivity < 2.7 ng/L (<3.5-17.0)
[2023-08-13 16:32] LABS: Glucose, Whole Blood 178 mg/dL (60-115)
[2023-08-13] MEDS: 0.9 % Sodium Chloride 1,000 ML 999 ML IV (16:37)
--- NOTE | 2023-08-13 17:54 | PM.EVENT ---
Event Note Date of Service: 08/13/23 Event Note: Positive blood cultures 1/2 with yeast (preliminary). Added fluconazole 800mg daily. ID consult. Repeat cultures pending. Given persistent fevers/tachcyardia/sepsis will continue ceftriaxone 2g daily until final blood/urine cultures resulted. Discussed with Dr. Ragsdale and RN Time Spent With Patient Time: Total time managing care of this patient today ____ minutes.
[2023-08-13] MEDS: Fluconazole in NaCl,Iso-Osm 400 MG/200 ML PIGGYBACK 100 MG IV (18:19)
--- NOTE | 2023-08-13 18:32 | HE.PHANOTE ---
RE CASPOFUNGIN ELVA VELAZQUEZ REQUESTED ONE TIME 70 MG CASPOFUNGIN WITH 50 MG DAILY THEREAFTER PER RECOMMENDATION OF DR HURTADO.
[2023-08-13 21:12] LABS: Glucose, Whole Blood 177 mg/dL (60-115)
[2023-08-13] MEDS: Amitriptyline HCl 10 MG TABLET PO (21:44)
[2023-08-13] MEDS: Atorvastatin Calcium 20 MG TABLET PO (21:45)
[2023-08-14] VITALS (12 sets, daily range): BP systolic 112–146; BP diastolic 54–91; PULSE 84–113; RESP 16–20; TEMP 36.3–39.2; O2SAT 94–98
[2023-08-14] MEDS: Omeprazole 40 MG CAPSULE.DR PO (05:41)
[2023-08-14] MEDS: Ibuprofen 600 MG TABLET PO ×3 (05:41→21:54)
[2023-08-14 08:07] LABS: Glucose, Whole Blood 134 mg/dL (60-115)
[2023-08-14] MEDS: NeoMYCIN/Polymyxin/HC Otic Sol BOTTLE 4 DROP EAR-RIGHT ×3 (08:45→22:29)
[2023-08-14] MEDS: Tolterodine Tartrate LA 4 MG CAP.ER.24H PO (08:45)
[2023-08-14] MEDS: Docusate Sodium 100 MG CAPSULE PO ×2 (08:45→21:32)
[2023-08-14] MEDS: Acetaminophen 325 MG TABLET 650 MG PO ×3 (08:45→17:09)
[2023-08-14] MEDS: Fluticasone Propionate Nasal 16 GM SPRAY 1 SPRAY NOSTRIL-B ×2 (08:45→22:30)
[2023-08-14] MEDS: polyethylene glycoL 3350 17 GM POWD.PACK PO (08:45)
[2023-08-14] MEDS: Sennosides 8.6 MG TABLET 17.2 MG PO (08:45)
[2023-08-14 09:38] LABS: Adenovirus PCR Not Detected (Not Detect.); Bordetella parapertussis PCR Not Detected (Not Detect.); Bordetella pertussis PCR Not Detected (Not Detect.); Chlamydia pneumoniae PCR Not Detected (Not Detect.); Coronavirus 229E PCR Not Detected (Not Detect.); Coronavirus HKU1 PCR Not Detected (Not Detect.); Coronavirus NL63 PCR Not Detected (Not Detect.); Coronavirus OC43 PCR Not Detected (Not Detect.); Human metapneumovirus PCR Not Detected (Not Detect.); Influenza A PCR Not Detected (Not Detect.); Influenza B PCR Not Detected (Not Detect.); Mycoplasma pneumoniae PCR Not Detected (Not Detect.); Parainfluenza 1 PCR Not Detected (Not Detect.); Parainfluenza 2 PCR Not Detected (Not Detect.); Parainfluenza 3 PCR Not Detected (Not Detect.); Parainfluenza 4 PCR Not Detected (Not Detect.); RSV PCR Not Detected (Not Detect.); Rhino/Enterovirus PCR Not Detected (Not Detect.)
[2023-08-14 09:59] LABS: SARS-CoV-2 PCR Not Detected (Not Detect.)
[2023-08-14 10:00] LABS: MANUAL DIFF FLAG NO
[2023-08-14 10:06] LABS: Basophils Percent Auto 0.4 % (0-2); Eosinophils Absolute Auto 0.1 X10*3/uL (0.0-0.4); Eosinophils Percent Auto 0.5 % (0-4); Hematocrit 43.8 % (37.0-47.0); Hemoglobin 14.2 g/dl (12.0-16.0); Imm Gran Abs Auto 0.13 X10*3/uL (0.00-0.03); Imm Gran Pct Auto 1.3 % (0.0-0.4); Lymphocytes Absolute Auto 0.9 X10*3/uL (1.2-4.9); Lymphocytes Percent Auto 9.4 % (20-40); Mean Corpuscular HGB Conc 32.4 g/dl (31.0-35.0); Mean Corpuscular Hemoglobin 29.2 pg (27.0-33.0); Mean Corpuscular Volume 89.9 fL (80.0-98.0); Mean Platelet Volume 10.7 fL (9.4-12.3); Monocytes Absolute Auto 0.7 X10*3/uL (0.1-1.2); Monocytes Percent Auto 7.1 % (2-11); Neutrophils Percent Auto 81.3 % (45-73); Platelet Count 183 X10*3/uL (160-400); Red Blood Count 4.87 X10*6/uL (4.20-5.50); Red Cell Distribution Width 13.4 % (11.0-16.0); White Blood Count 9.8 X10*3/uL (4.8-10.8)
[2023-08-14 10:19] LABS: Anion Gap 14 (12-20); Blood Urea Nitrogen 10 mg/dL (9-16); Calcium 8.9 mg/dL (8.4-10.2); Carbon Dioxide 22 mmol/L (22-29); Chloride 107 mmol/L (96-108); Creatinine Clr Calc Pharmacy 85.7; Estimated Glomerular Filt Rate 54; Glucose Random 162 mg/dL (60-115); Potassium 3.4 mmol/L (3.3-5.1); Sodium 140 mmol/L (135-145)
[2023-08-14] MEDS: 0.9 % Sodium Chloride Flush 3 ML SYRINGE IVFLUSH ×2 (11:00→17:10)
[2023-08-14] MEDS: Caspofungin Acetate 70 MG in 0.9 % Sodium Chloride 250 ML 250 MG IV (11:00)
[2023-08-14 12:10] LABS: Glucose, Whole Blood 178 mg/dL (60-115)
--- NOTE | 2023-08-14 12:12 | P.PNUR_ITS ---
Subjective Subjective Date of Service: 08/14/23 Patient reports: no new complaints, feels better and pain is less Physical Exam 2 Vital Signs: Vital Signs: Last Vital Signs Temp 101.9 F H 08/14/23 08:00 Pulse 113 H 08/14/23 08:00 Resp 20 08/14/23 08:00 BP 112/59 L 08/14/23 08:00 Pulse Ox 95 08/14/23 08:00 O2 Del Method Room Air 08/14/23 08:00 O2 Flow Rate 1 08/12/23 19:43 BMI result Body Mass Index 50.6 Urology Results Labs 08/14/23 09:03 08/14/23 09:03 Labs: Laboratory Results - last 24 hr 08/13/23 08/13/23 08/13/23 14:30 14:30 15:00 WBC RBC Hgb Hct MCV MCH MCHC RDW Plt Count MPV Immature Gran % (Auto) Neut % (Auto) Lymph % (Auto) [place] % (Auto) Eos % (Auto) Baso % (Auto) Lymph # (Auto) [place] # (Auto) Eos # (Auto) Baso # (Auto) Abs Immat Gran (auto) Absolute Neuts (auto) Absolute Nucleated RBC Nucleated RBC % (auto) Sodium Potassium Chloride Carbon Dioxide Anion Gap BUN Creatinine Estim Creat Clear Calc Estimated GFR POC Glucose Random Glucose Calcium Troponin I High Sens < 2.7 Respiratory Panel [place] See Note Adenovirus (Rapid PCR) Not Detected B.pert (TEM-PCR) Not Detected B.parapertussis DNA PCR Not Detected C. pneumoniae DNA (PCR) Not Detected Coronavirus OC43 (PCR) Not Detected Coronavirus HKU1 (PCR) Not Detected Coronavirus 229E (PCR) Not Detected Coronavirus NL63 (PCR) Not Detected Human Metapneumovir PCR Not Detected Influenza A (RT-PCR) Not Detected Influenza Type A (PCR) NEGATIVE Influenza B (RT-PCR) Not Detected Influenza Type B (PCR) NEGATIVE M. pneumoniae (PCR) Not Detected Parainfluenza 1 (PCR) Not Detected Parainfluenza 2 (PCR) Not Detected Parainfluenza 3 (PCR) Not Detected Parainfluenza 4 (PCR) Not Detected RSV (PCR) Not Detected RSV RNA Qual (PCR) NEGATIVE Entero/Rhino (PCR) Not Detected SARS-CoV-2 RNA (RT-PCR) NEGATIVE Not Detected S. pyogenes GrpA LEXIS Negative 08/13/23 08/13/23 08/14/23 16:27 20:57 07:59 WBC RBC Hgb Hct MCV MCH MCHC RDW Plt Count MPV Immature Gran % (Auto) Neut % (Auto) Lymph % (Auto) [place] % (Auto) Eos % (Auto) Baso % (Auto) Lymph # (Auto) [place] # (Auto) Eos # (Auto) Baso # (Auto) Abs Immat Gran (auto) Absolute Neuts (auto) Absolute Nucleated RBC Nucleated RBC % (auto) Sodium Potassium Chloride Carbon Dioxide Anion Gap BUN Creatinine Estim Creat Clear Calc Estimated GFR POC Glucose 178 H 177 H 134 H Random Glucose Calcium Troponin I High Sens Respiratory Panel [place] Adenovirus (Rapid PCR) B.pert (TEM-PCR) B.parapertussis DNA PCR C. pneumoniae DNA (PCR) Coronavirus OC43 (PCR) Coronavirus HKU1 (PCR) Coronavirus 229E (PCR) Coronavirus NL63 (PCR) Human Metapneumovir PCR Influenza A (RT-PCR) Influenza Type A (PCR) Influenza B (RT-PCR) Influenza Type B (PCR) M. pneumoniae (PCR) Parainfluenza 1 (PCR) Parainfluenza 2 (PCR) Parainfluenza 3 (PCR) Parainfluenza 4 (PCR) RSV (PCR) RSV RNA Qual (PCR) Entero/Rhino (PCR) SARS-CoV-2 RNA (RT-PCR) S. pyogenes GrpA [place] 08/14/23 08/14/23 09:03 11:31 WBC 9.8 RBC 4.87 Hgb 14.2 Hct 43.8 MCV 89.9 MCH 29.2 MCHC 32.4 RDW 13.4 Plt Count 183 MPV 10.7 Immature Gran % (Auto) 1.3 H Neut % (Auto) 81.3 H Lymph % (Auto) 9.4 L [place] % (Auto) 7.1 Eos % (Auto) 0.5 Baso % (Auto) 0.4 Lymph # (Auto) 0.9 L [place] # (Auto) 0.7 Eos # (Auto) 0.1 Baso # (Auto) 0.0 Abs Immat Gran (auto) 0.13 H Absolute Neuts (auto) 8.0 Absolute Nucleated RBC 0.000 Nucleated RBC % (auto) 0.0 Sodium 140 Potassium 3.4 Chloride 107 Carbon Dioxide 22 Anion Gap 14 BUN 10 Creatinine 1.09 Estim Creat Clear Calc 85.7 Estimated GFR 54 POC Glucose 178 H Random Glucose 162 H Calcium 8.9 Troponin I High Sens Respiratory Panel [place] Adenovirus (Rapid PCR) B.pert (TEM-PCR) B.parapertussis DNA PCR C. pneumoniae DNA (PCR) Coronavirus OC43 (PCR) Coronavirus HKU1 (PCR) Coronavirus 229E (PCR) Coronavirus NL63 (PCR) Human Metapneumovir PCR Influenza A (RT-PCR) Influenza Type A (PCR) Influenza B (RT-PCR) Influenza Type B (PCR) M. pneumoniae (PCR) Parainfluenza 1 (PCR) Parainfluenza 2 (PCR) Parainfluenza 3 (PCR) Parainfluenza 4 (PCR) RSV (PCR) RSV RNA Qual (PCR) Entero/Rhino (PCR) SARS-CoV-2 RNA (RT-PCR) S. pyogenes GrpA LEXIS Progress Note: A&P Assessment and plan (1) Hydronephrosis concurrent with and due to calculi of kidney and ureter: Status: Acute (2) Sepsis: Status: Acute (3) Kidney stone on left side: Status: Acute (4) Ureteral stent present: Status: Acute (5) Fungemia: Status: Acute Plan DC Rocephen IV Casspofungin per ID Clinically improving Will change left ureteral stent KUB Time Spent With Patient Time: Total time managing care of this patient today ____ minutes. Progress Note: Quality Stroke Does the patient have a stroke diagnosis?: No
[2023-08-14] MEDS: Insulin Lispro 100 UNIT/ML 3 ML VIAL SUBCUT (12:35)
--- NOTE | 2023-08-14 12:59 | P.PNIM_ITS ---
Subjective Subjective Date of Service: 08/14/23 Interval History: Seen in follow up for severe sepsis, UTI, diabetes Interval history: Intermittently febrile with tachycardia. Blood cultures with yeast x2. UC still pending. Pt reports headache Review of Systems Review of Systems: Yes all other systems are reviewed and are negative Physical Exam 2 Vital Signs: Vital Signs: Last Vital Signs Temp 101.9 F H 08/14/23 08:00 Pulse 108 H 08/14/23 12:00 Resp 20 08/14/23 12:00 BP 136/91 H 08/14/23 12:00 Pulse Ox 96 08/14/23 12:00 O2 Del Method Room Air 08/14/23 12:00 O2 Flow Rate 1 08/12/23 19:43 BMI result Body Mass Index 50.6 Constitutional - Awake and Alert, No apparent distress Eyes - PERRLA, EOMI Cardiovascular - S1S2, RRR, No edema Respiratory - Normal lung expansion, Normal respiratory effort, No respiratory distress, CTA bilaterally Gastrointestinal - NT / ND; +BS; No rebound or guarding Extremities - no calf tenderness bilaterally, no swelling Musculoskeletal - Normal inspection, normal ROM Skin - Warm/clammy Neurological - Alert & oriented x3 Psychological - Appropriate affect Objective Data Active Medications Acetaminophen (Acetaminophen 325 Mg Tablet) 650 mg PO Q6H PRN PRN Reason: Pain, Mild (Pain Scale 1-3) Last Admin: 08/14/23 08:45 Dose: 650 mg Documented By: MELE Hydrocodone Bitart/Acetaminophen (Hydrocodone Bit/Acetam 5/325 Tablet) 1 tab PO Q4H PRN PRN Reason: Pain, Moderate(Pain Scale 4-6) Last Admin: 08/13/23 21:44 Dose: 1 tab Documented By: NELY Amitriptyline HCl (Amitriptyline Hcl 10 Mg Tablet) 10 mg PO BEDTIME [facility] Last Admin: 08/13/23 21:44 Dose: 10 mg Documented By: NELY Atorvastatin Calcium (Atorvastatin Calcium 20 Mg Tablet) 20 mg PO BEDTIME [facility] Last Admin: 08/13/23 21:45 Dose: 20 mg Documented By: NELY Benzocaine (Throat Lozenge, Medicated Lozenge) 1 lozenge MUCOUS MEM Q2H PRN PRN Reason: Sore Throat Last Admin: 08/13/23 15:02 Dose: 1 lozenge Documented By: MELE Dextrose (Dextrose 50 % 25 Gm/50 Ml Syringe) 25 gm IVPUSH Q15M PRN; Protocol PRN Reason: per Hypoglycemia Standing Ord. Docusate Sodium (Docusate Sodium 100 Mg Capsule) 100 mg PO BID [facility] Last Admin: 08/14/23 08:45 Dose: 100 mg Documented By: MELE Fentanyl (Fentanyl Citrate/Pf 100 Mcg/2 Ml Vial) 50 mcg IVPUSH Q5M PRN; Protocol PRN Reason: Pain, Severe (Pain Scale 7-10) Fluticasone Propionate (Fluticasone Propionate Nasal 16 Gm [place]) 1 spray NOSTRIL-B BID [facility] Last Admin: 08/14/23 08:45 Dose: 1 spray Documented By: MELE Glucose (Glucose Gel 15 Gm Gel..Gram.) 15 gm PO Q15M PRN; Protocol PRN Reason: per Hypoglycemia Standing Ord. Hydromorphone HCl (Hydromorphone Hcl 1 Mg/Ml Syringe) 0.5 mg IVPUSH Q3H PRN; Protocol PRN Reason: Pain, Severe (Pain Scale 7-10) Caspofungin 50 mg/ Sodium (Chloride) 250 mls @ 250 mls/hr IV Q24H [facility] Ibuprofen (Ibuprofen 600 Mg Tablet) 600 mg PO Q6H PRN PRN Reason: fever, mild pain Last Admin: 08/14/23 05:41 Dose: 600 mg Documented By: NELY Insulin Human Lispro (Insulin Lispro 100 Unit/Ml 3 Ml Vial) 0 unit SUBCUT QIDACHS [facility]; Protocol Last Admin: 08/14/23 12:35 Dose: 2 unit Documented By: MELE Magnesium Hydroxide (Milk Of Magnesia 30 Ml Oral.Susp) 30 ml PO DAILY PRN PRN Reason: Constipation Melatonin (Melatonin 3 Mg Tablet) 3 mg PO BEDTIME PRN PRN Reason: Insomnia Neomycin/Polymyxin/Hydrocortisone (Neomycin/Polymyxin/Hc Otic Alyx Bottle) 4 drop EAR-RIGHT TID [facility] Last Admin: 08/14/23 08:45 Dose: 4 drop Documented By: MELE Omeprazole (Omeprazole 40 Mg Capsule.Dr) 40 mg PO DAILY@0630 [facility] Last Admin: 08/14/23 05:41 Dose: 40 mg Documented By: NELY Ondansetron HCl (Ondansetron Odt 4 Mg Tab.Rapdis) 4 mg TRANSLINGU Q8H PRN PRN Reason: Nausea And Vomiting Ondansetron HCl (Ondansetron Hcl 4 Mg/2 Ml Vial) 4 mg IVPUSH Q8H PRN PRN Reason: Nausea and Vomiting Ondansetron HCl (Ondansetron Hcl 4 Mg/2 Ml Vial) 4 mg IVPUSH ONCE PRN PRN Reason: Nausea and Vomiting Oxycodone HCl (Oxycodone Hcl Immed Release 5 Mg Tablet) 5 mg PO ONCE PRN PRN Reason: Pain, Severe (Pain Scale 7-10) Polyethylene Glycol (Polyethylene Glycol 3350 17 Gm Powd.Pack) 17 gm PO DAILY [facility] Last Admin: 08/14/23 08:45 Dose: 17 gm Documented By: MELE Pseudoephedrine HCl (Pseudoephedrine Hcl 30 Mg Tablet) 30 mg PO Q6H PRN PRN Reason: Nasal Congestion Senna (Sennosides 8.6 Mg Tablet) 17.2 mg PO DAILY [facility] Last Admin: 08/14/23 08:45 Dose: 17.2 mg Documented By: MELE Sodium Chloride (0.9 % Sodium Chloride Flush 3 Ml Syringe) 3 ml IVFLUSH QSHIFT [facility] Last Admin: 08/14/23 11:00 Dose: 3 ml Documented By: MELE Tolterodine Tartrate (Tolterodine Tartrate La 4 Mg Cap.Er.24h) 4 mg PO DAILY [facility] Last Admin: 08/14/23 08:45 Dose: 4 mg Documented By: MELE Labs 08/14/23 09:03 08/14/23 09:03 Labs: Laboratory Results - last 24 hr 08/13/23 08/13/23 08/13/23 14:30 14:30 16:27 MCV MCH MCHC RDW Plt Count MPV Immature Gran % (Auto) Neut % (Auto) Lymph % (Auto) [place] % (Auto) Eos % (Auto) Baso % (Auto) Lymph # (Auto) [place] # (Auto) Eos # (Auto) Baso # (Auto) Abs Immat Gran (auto) Absolute Neuts (auto) Absolute Nucleated RBC Nucleated RBC % (auto) Anion Gap Estim Creat Clear Calc Estimated GFR POC Glucose 178 H Random Glucose Calcium Respiratory Panel [place] See Note Adenovirus (Rapid PCR) Not Detected B.pert (TEM-PCR) Not Detected B.parapertussis DNA PCR Not Detected C. pneumoniae DNA (PCR) Not Detected Coronavirus OC43 (PCR) Not Detected Coronavirus HKU1 (PCR) Not Detected Coronavirus 229E (PCR) Not Detected Coronavirus NL63 (PCR) Not Detected Human Metapneumovir PCR Not Detected Influenza A (RT-PCR) Not Detected Influenza Type A (PCR) NEGATIVE Influenza B (RT-PCR) Not Detected Influenza Type B (PCR) NEGATIVE M. pneumoniae (PCR) Not Detected Parainfluenza 1 (PCR) Not Detected Parainfluenza 2 (PCR) Not Detected Parainfluenza 3 (PCR) Not Detected Parainfluenza 4 (PCR) Not Detected RSV (PCR) Not Detected RSV RNA Qual (PCR) NEGATIVE Entero/Rhino (PCR) Not Detected SARS-CoV-2 RNA (RT-PCR) NEGATIVE Not Detected S. pyogenes GrpA [place] Negative 08/13/23 08/14/23 08/14/23 20:57 07:59 09:03 MCV 89.9 MCH 29.2 MCHC 32.4 RDW 13.4 Plt Count 183 MPV 10.7 Immature Gran % (Auto) 1.3 H Neut % (Auto) 81.3 H Lymph % (Auto) 9.4 L [place] % (Auto) 7.1 Eos % (Auto) 0.5 Baso % (Auto) 0.4 Lymph # (Auto) 0.9 L [place] # (Auto) 0.7 Eos # (Auto) 0.1 Baso # (Auto) 0.0 Abs Immat Gran (auto) 0.13 H Absolute Neuts (auto) 8.0 Absolute Nucleated RBC 0.000 Nucleated RBC % (auto) 0.0 Anion Gap 14 Estim Creat Clear Calc 85.7 Estimated GFR 54 POC Glucose 177 H 134 H Random Glucose 162 H Calcium 8.9 Respiratory Panel [place] Adenovirus (Rapid PCR) B.pert (TEM-PCR) B.parapertussis DNA PCR C. pneumoniae DNA (PCR) Coronavirus OC43 (PCR) Coronavirus HKU1 (PCR) Coronavirus 229E (PCR) Coronavirus NL63 (PCR) Human Metapneumovir PCR Influenza A (RT-PCR) Influenza Type A (PCR) Influenza B (RT-PCR) Influenza Type B (PCR) M. pneumoniae (PCR) Parainfluenza 1 (PCR) Parainfluenza 2 (PCR) Parainfluenza 3 (PCR) Parainfluenza 4 (PCR) RSV (PCR) RSV RNA Qual (PCR) Entero/Rhino (PCR) SARS-CoV-2 RNA (RT-PCR) S. pyogenes GrpA [place] 08/14/23 11:31 MCV MCH MCHC RDW Plt Count MPV Immature Gran % (Auto) Neut % (Auto) Lymph % (Auto) [place] % (Auto) Eos % (Auto) Baso % (Auto) Lymph # (Auto) [place] # (Auto) Eos # (Auto) Baso # (Auto) Abs Immat Gran (auto) Absolute Neuts (auto) Absolute Nucleated RBC Nucleated RBC % (auto) Anion Gap Estim Creat Clear Calc Estimated GFR POC Glucose 178 H Random Glucose Calcium Respiratory Panel [place] Adenovirus (Rapid PCR) B.pert (TEM-PCR) B.parapertussis DNA PCR C. pneumoniae DNA (PCR) Coronavirus OC43 (PCR) Coronavirus HKU1 (PCR) Coronavirus 229E (PCR) Coronavirus NL63 (PCR) Human Metapneumovir PCR Influenza A (RT-PCR) Influenza Type A (PCR) Influenza B (RT-PCR) Influenza Type B (PCR) M. pneumoniae (PCR) Parainfluenza 1 (PCR) Parainfluenza 2 (PCR) Parainfluenza 3 (PCR) Parainfluenza 4 (PCR) RSV (PCR) RSV RNA Qual (PCR) Entero/Rhino (PCR) SARS-CoV-2 RNA (RT-PCR) S. pyogenes GrpA [place] Microbiology Microbiology Results: Microbiology 08/12/23 Unknown Urine Culture - Preliminary Urine Other - Kidney Left Yeast 08/12/23 12:37 Blood Culture - Preliminary Blood - Venous Prelim: Yeast Gram Stain only 08/12/23 12:00 Blood Culture - Preliminary Blood - Venous Prelim: Yeast Gram Stain only Assessment and Plan (1) Hydronephrosis concurrent with and due to calculi of kidney and ureter: Status: Acute (2) Sepsis: Status: Acute (3) Urinary tract infection: Status: Inactive (4) Fungemia: Status: Acute (5) Ureteral stent present: Status: Acute Plan 47-year-old female with history of hyperlipidemia, [id number] type 2 diabetes, GERD, nephrolithiasis admitted to for management of obstructive uropathy with hydronephrosis s/p left retrograde cystoscopy with stent insertion with consult placed to hospitalist service for management of sepsis and diabetes. #Obstructive uropathy with left hydronephrosis s/p cystoscopy and left ureteral stent placement -plan per urology #severe sepsis- likely urinary source- probably yeast given fungemia -Severe sepsis/sepsis resolved -DC ceftriaxone per urology -Initiate caspofungin per ID -follow cultures -tylenol prn fevers #Acute fungemia -BC x2 growing yeast (preliminary) -Caspofungin 70mg today (08/14), continue caspofungin 50mg daily -Repeat cultures pending -IV line replaced per ID -ID recommending removal/replacement of ureteral stents. Discussed with urology. Removal at urology discretion -ID consult # acute kidney injury- likely secondary to obstructive uropathy -Resolved following stent placement and IVF -follow BMP -avoid nephrotoxins #Pleuritic CP/ST/Sinus pressure -likely viral though respiratory pathogen panel negative -Strep A negative -CXR negative -EKG sinus tachy, no st/t wave abn, trop wnl #R otitis externa -neomycin/polymixin tid while awake x 7 days # [id number] type 2 diabetes- without hyperglycemia -POC glucose -diabetic diet -Humalog on sliding scale -hold oral antihyperglycemics. Resume on discharge Thank you for this consult, will continue following along with you. Quality Stroke Does the patient have a stroke diagnosis?: No VTE Prior VTE?: No VTE Risk Level:: Surgical - low VTE Device Contraindication: N/A - Device Ordered VTE Drug Contraindication: Treatment Not Tolerated
--- NOTE | 2023-08-14 14:25 | HO.POSTANES ---
Post Anesthesia Evaluation Post Anesthesia Evaluation Date of Service: 08/14/23 Vital Signs: Vital Signs Temp Pulse Resp BP Pulse Ox O2 Del Method 08/14/23 14:10 99.8 F 08/14/23 12:00 108 H 20 136/91 H 96 Room Air 08/14/23 08:00 101.9 F H 113 H 20 112/59 L 95 Room Air 08/14/23 04:00 99.6 F 88 16 116/66 98 Room Air Anesthesia: General Mental Status: Awake Pain Control: Satisfactory Nausea/Vomiting: None Hydration: Adequate Anesthesia-Related Issues: No Anes. Related Issues
[2023-08-14] MEDS: Pseudoephedrine HCL 30 MG TABLET PO (15:00)
[2023-08-14 16:45] LABS: Glucose, Whole Blood 126 mg/dL (60-115)
[2023-08-14 20:57] LABS: Glucose, Whole Blood 176 mg/dL (60-115)
[2023-08-14] MEDS: Amitriptyline HCl 10 MG TABLET PO (21:32)
[2023-08-14] MEDS: Atorvastatin Calcium 20 MG TABLET PO (21:32)
[2023-08-14] MEDS: HYDROmorphone HCl 1 MG/ML SYRINGE 0.5 MG IVPUSH (21:49)
[2023-08-15] VITALS (15 sets, daily range): BP systolic 97–149; BP diastolic 59–79; PULSE 86–111; RESP 16–19; TEMP 36.1–37.9; O2SAT 92–100
[2023-08-15] MEDS: 0.9 % Sodium Chloride Flush 3 ML SYRINGE IVFLUSH ×4 (00:30→20:59)
[2023-08-15] MEDS: HYDROcodone Bit/Acetam 5/325 TABLET 1 TAB PO ×2 (01:25→09:06)
[2023-08-15] MEDS: Omeprazole 40 MG CAPSULE.DR PO (06:04)
[2023-08-15 07:18] LABS: Glucose, Whole Blood 105 mg/dL (60-115)
[2023-08-15 08:05] LABS: Anion Gap 14 (12-20); Blood Urea Nitrogen 10 mg/dL (9-16); Calcium 9.2 mg/dL (8.4-10.2); Carbon Dioxide 22 mmol/L (22-29); Chloride 106 mmol/L (96-108); Creatinine Clr Calc Pharmacy 101.5; Estimated Glomerular Filt Rate > 60; Glucose Random 125 mg/dL (60-115); Potassium 4.1 mmol/L (3.3-5.1); Sodium 138 mmol/L (135-145)
[2023-08-15] MEDS: Caspofungin Acetate 50 MG in 0.9 % Sodium Chloride 250 ML 250 MG IV (08:54)
[2023-08-15] MEDS: Sennosides 8.6 MG TABLET 17.2 MG PO (08:54)
[2023-08-15] MEDS: Docusate Sodium 100 MG CAPSULE PO ×2 (08:54→20:59)
[2023-08-15] MEDS: polyethylene glycoL 3350 17 GM POWD.PACK PO (08:55)
[2023-08-15] MEDS: Fluticasone Propionate Nasal 16 GM SPRAY 1 SPRAY NOSTRIL-B ×2 (08:55→20:59)
[2023-08-15] MEDS: Tolterodine Tartrate LA 4 MG CAP.ER.24H PO (08:55)
[2023-08-15] MEDS: NeoMYCIN/Polymyxin/HC Otic Sol BOTTLE 4 DROP EAR-RIGHT ×3 (08:55→20:59)
[2023-08-15] MEDS: Ibuprofen 600 MG TABLET PO (08:55)
[2023-08-15 09:07] LABS: Basophils Absolute Auto 0.1 X10*3/uL (0.0-0.2); Basophils Percent Auto 0.5 % (0-2); Eosinophils Absolute Auto 0.1 X10*3/uL (0.0-0.4); Eosinophils Percent Auto 1.3 % (0-4); Hematocrit 43.6 % (37.0-47.0); Hemoglobin 14.6 g/dl (12.0-16.0); Imm Gran Abs Auto 0.11 X10*3/uL (0.00-0.03); Imm Gran Pct Auto 1.1 % (0.0-0.4); Lymphocytes Absolute Auto 1.8 X10*3/uL (1.2-4.9); Lymphocytes Percent Auto 17.3 % (20-40); MANUAL DIFF FLAG SCAN; Mean Corpuscular HGB Conc 33.5 g/dl (31.0-35.0); Mean Corpuscular Volume 86.5 fL (80.0-98.0); Mean Platelet Volume 10.3 fL (9.4-12.3); Monocytes Absolute Auto 1.3 X10*3/uL (0.1-1.2); Monocytes Percent Auto 12.1 % (2-11); Neutrophils Absolute Auto 7.1 x10*3/uL (2.0-8.3); Neutrophils Percent Auto 67.7 % (45-73); PLT CLUMP 1; Red Blood Count 5.04 X10*6/uL (4.20-5.50); Red Cell Distribution Width 13.4 % (11.0-16.0); SCAN SMEAR FLAG 1
--- NOTE | 2023-08-15 09:33 | HO.PM.IMPN ---
Subjective Subjective Date of Service: 08/15/23 Interval History: low grade fever Physical Exam Vital Signs: Vital Signs: Last Vital Signs Temp 100.2 F 08/15/23 07:43 Pulse 104 H 08/15/23 07:43 Resp 18 08/15/23 07:43 BP 149/79 H 08/15/23 07:43 Pulse Ox 98 08/15/23 07:43 O2 Del Method Room Air 08/15/23 07:43 O2 Flow Rate 2 08/14/23 15:16 BMI result Body Mass Index 50.6 Constitutional - Awake and Alert, No apparent distress Eyes - PERRLA, EOMI Cardiovascular - S1S2, RRR, No edema Respiratory - Normal lung expansion, Normal respiratory effort, No respiratory distress, CTA bilaterally Gastrointestinal - NT / ND; +BS; No rebound or guarding Extremities - no calf tenderness bilaterally, no swelling Musculoskeletal - Normal inspection, normal ROM Skin - Warm/clammy Neurological - Alert & oriented x3 Psychological - Appropriate affect Objective Data Active Medications Acetaminophen (Acetaminophen 325 Mg Tablet) 650 mg PO Q4H PRN PRN Reason: Pain, Mild (Pain Scale 1-3) Last Admin: 08/14/23 17:09 Dose: 650 mg Documented By: MELE Hydrocodone Bitart/Acetaminophen (Hydrocodone Bit/Acetam 5/325 Tablet) 1 tab PO Q4H PRN PRN Reason: Pain, Moderate(Pain Scale 4-6) Last Admin: 08/15/23 09:06 Dose: 1 tab Documented By: DAISY Amitriptyline HCl (Amitriptyline Hcl 10 Mg Tablet) 10 mg PO BEDTIME [facility] Last Admin: 08/14/23 21:32 Dose: 10 mg Documented By: NELY Atorvastatin Calcium (Atorvastatin Calcium 20 Mg Tablet) 20 mg PO BEDTIME [facility] Last Admin: 08/14/23 21:32 Dose: 20 mg Documented By: NELY Benzocaine (Throat Lozenge, Medicated Lozenge) 1 lozenge MUCOUS MEM Q2H PRN PRN Reason: Sore Throat Last Admin: 08/13/23 15:02 Dose: 1 lozenge Documented By: MELE Dextrose (Dextrose 50 % 25 Gm/50 Ml Syringe) 25 gm IVPUSH Q15M PRN; Protocol PRN Reason: per Hypoglycemia Standing Ord. Docusate Sodium (Docusate Sodium 100 Mg Capsule) 100 mg PO BID [facility] Last Admin: 08/15/23 08:54 Dose: 100 mg Documented By: DAISY Fentanyl (Fentanyl Citrate/Pf 100 Mcg/2 Ml Vial) 50 mcg IVPUSH Q5M PRN; Protocol PRN Reason: Pain, Severe (Pain Scale 7-10) Fluticasone Propionate (Fluticasone Propionate Nasal 16 Gm [place]) 1 spray NOSTRIL-B BID [facility] Last Admin: 08/15/23 08:55 Dose: 1 spray Documented By: DAISY Glucose (Glucose Gel 15 Gm Gel..Gram.) 15 gm PO Q15M PRN; Protocol PRN Reason: per Hypoglycemia Standing Ord. Hydromorphone HCl (Hydromorphone Hcl 1 Mg/Ml Syringe) 0.5 mg IVPUSH Q3H PRN; Protocol PRN Reason: Pain, Severe (Pain Scale 7-10) Last Admin: 08/14/23 21:49 Dose: 0.5 mg Documented By: NELY Caspofungin 50 mg/ Sodium (Chloride) 250 mls @ 250 mls/hr IV Q24H [facility] Last Admin: 08/15/23 08:54 Dose: 250 mls/hr Documented By: DAISY Ibuprofen (Ibuprofen 600 Mg Tablet) 600 mg PO Q6H PRN PRN Reason: fever, mild pain Last Admin: 08/15/23 08:55 Dose: 600 mg Documented By: DAISY Insulin Human Lispro (Insulin Lispro 100 Unit/Ml 3 Ml Vial) 0 unit SUBCUT QIDACHS [facility]; Protocol Last Admin: 08/15/23 08:14 Dose: Not Given Documented By: DAISY Non-Admin Reason: poc= 105 Magnesium Hydroxide (Milk Of Magnesia 30 Ml Oral.Susp) 30 ml PO DAILY PRN PRN Reason: Constipation Melatonin (Melatonin 3 Mg Tablet) 3 mg PO BEDTIME PRN PRN Reason: Insomnia Neomycin/Polymyxin/Hydrocortisone (Neomycin/Polymyxin/Hc Otic Alyx Bottle) 4 drop EAR-RIGHT TID [facility] Stop: 08/20/23 09:01 Last Admin: 08/15/23 08:55 Dose: 4 drop Documented By: DAISY Omeprazole (Omeprazole 40 Mg Capsule.Dr) 40 mg PO DAILY@0630 [facility] Last Admin: 08/15/23 06:04 Dose: 40 mg Documented By: NELY Ondansetron HCl (Ondansetron Odt 4 Mg Tab.Rapdis) 4 mg TRANSLINGU Q8H PRN PRN Reason: Nausea And Vomiting Ondansetron HCl (Ondansetron Hcl 4 Mg/2 Ml Vial) 4 mg IVPUSH Q8H PRN PRN Reason: Nausea and Vomiting Ondansetron HCl (Ondansetron Hcl 4 Mg/2 Ml Vial) 4 mg IVPUSH ONCE PRN PRN Reason: Nausea and Vomiting Oxycodone HCl (Oxycodone Hcl Immed Release 5 Mg Tablet) 5 mg PO ONCE PRN PRN Reason: Pain, Severe (Pain Scale 7-10) Polyethylene Glycol (Polyethylene Glycol 3350 17 Gm Powd.Pack) 17 gm PO DAILY [facility] Last Admin: 08/15/23 08:55 Dose: 17 gm Documented By: DAISY Pseudoephedrine HCl (Pseudoephedrine Hcl 30 Mg Tablet) 30 mg PO Q6H PRN PRN Reason: Nasal Congestion Last Admin: 08/14/23 15:00 Dose: 30 mg Documented By: MELE Senna (Sennosides 8.6 Mg Tablet) 17.2 mg PO DAILY [facility] Last Admin: 08/15/23 08:54 Dose: 17.2 mg Documented By: DAISY Sodium Chloride (0.9 % Sodium Chloride Flush 3 Ml Syringe) 3 ml IVFLUSH QSHIFT [facility] Last Admin: 08/15/23 08:55 Dose: 3 ml Documented By: DAISY Tolterodine Tartrate (Tolterodine Tartrate La 4 Mg Cap.Er.24h) 4 mg PO DAILY [facility] Last Admin: 08/15/23 08:55 Dose: 4 mg Documented By: DAISY Labs 08/14/23 09:03 08/15/23 06:59 Labs: Laboratory Results - last 24 hr 08/13/23 08/14/23 08/14/23 14:30 09:03 11:31 MCV 89.9 MCH 29.2 MCHC 32.4 RDW 13.4 Plt Count 183 MPV 10.7 Immature Gran % (Auto) 1.3 H Neut % (Auto) 81.3 H Lymph % (Auto) 9.4 L [place] % (Auto) 7.1 Eos % (Auto) 0.5 Baso % (Auto) 0.4 Lymph # (Auto) 0.9 L [place] # (Auto) 0.7 Eos # (Auto) 0.1 Baso # (Auto) 0.0 Abs Immat Gran (auto) 0.13 H Absolute Neuts (auto) 8.0 Absolute Nucleated RBC 0.000 Nucleated RBC % (auto) 0.0 Anion Gap 14 Estim Creat Clear Calc 85.7 Estimated GFR 54 POC Glucose 178 H Random Glucose 162 H Calcium 8.9 Respiratory Panel [facility] See Note Adenovirus (Rapid PCR) Not Detected B.pert (TEM-PCR) Not Detected B.parapertussis DNA PCR Not Detected C. pneumoniae DNA (PCR) Not Detected Coronavirus OC43 (PCR) Not Detected Coronavirus HKU1 (PCR) Not Detected Coronavirus 229E (PCR) Not Detected Coronavirus NL63 (PCR) Not Detected Human Metapneumovir PCR Not Detected Influenza A (RT-PCR) Not Detected Influenza B (RT-PCR) Not Detected M. pneumoniae (PCR) Not Detected Parainfluenza 1 (PCR) Not Detected Parainfluenza 2 (PCR) Not Detected Parainfluenza 3 (PCR) Not Detected Parainfluenza 4 (PCR) Not Detected RSV (PCR) Not Detected Entero/Rhino (PCR) Not Detected SARS-CoV-2 RNA (RT-PCR) Not Detected 08/14/23 08/14/23 08/15/23 16:35 20:50 06:59 MCV MCH MCHC RDW Plt Count MPV Immature Gran % (Auto) Neut % (Auto) Lymph % (Auto) [place] % (Auto) Eos % (Auto) Baso % (Auto) Lymph # (Auto) [place] # (Auto) Eos # (Auto) Baso # (Auto) Abs Immat Gran (auto) Absolute Neuts (auto) Absolute Nucleated RBC Nucleated RBC % (auto) Anion Gap 14 Estim Creat Clear Calc 101.5 Estimated GFR > 60 POC Glucose 126 H 176 H Random Glucose 125 H Calcium 9.2 Respiratory Panel [place] Adenovirus (Rapid PCR) B.pert (TEM-PCR) B.parapertussis DNA PCR C. pneumoniae DNA (PCR) Coronavirus OC43 (PCR) Coronavirus HKU1 (PCR) Coronavirus 229E (PCR) Coronavirus NL63 (PCR) Human Metapneumovir PCR Influenza A (RT-PCR) Influenza B (RT-PCR) M. pneumoniae (PCR) Parainfluenza 1 (PCR) Parainfluenza 2 (PCR) Parainfluenza 3 (PCR) Parainfluenza 4 (PCR) RSV (PCR) Entero/Rhino (PCR) SARS-CoV-2 RNA (RT-PCR) 08/15/23 07:10 MCV MCH MCHC RDW Plt Count MPV Immature Gran % (Auto) Neut % (Auto) Lymph % (Auto) [place] % (Auto) Eos % (Auto) Baso % (Auto) Lymph # (Auto) [place] # (Auto) Eos # (Auto) Baso # (Auto) Abs Immat Gran (auto) Absolute Neuts (auto) Absolute Nucleated RBC Nucleated RBC % (auto) Anion Gap Estim Creat Clear Calc Estimated GFR POC Glucose 105 Random Glucose Calcium Respiratory Panel [place] Adenovirus (Rapid PCR) B.pert (TEM-PCR) B.parapertussis DNA PCR C. pneumoniae DNA (PCR) Coronavirus OC43 (PCR) Coronavirus HKU1 (PCR) Coronavirus 229E (PCR) Coronavirus NL63 (PCR) Human Metapneumovir PCR Influenza A (RT-PCR) Influenza B (RT-PCR) M. pneumoniae (PCR) Parainfluenza 1 (PCR) Parainfluenza 2 (PCR) Parainfluenza 3 (PCR) Parainfluenza 4 (PCR) RSV (PCR) Entero/Rhino (PCR) SARS-CoV-2 RNA (RT-PCR) Microbiology Microbiology Results: Microbiology 08/12/23 Unknown Urine Culture - Final Urine Other - Kidney Left Jaja lusitaniae 08/13/23 15:00 Blood Culture - Preliminary Blood - Venous Prelim: Yeast Gram Stain only 08/13/23 15:00 Blood Culture - Preliminary Blood - Venous Prelim: Yeast Gram Stain only 08/12/23 12:37 Blood Culture - Preliminary Blood - Venous Prelim: Yeast Gram Stain only 08/12/23 12:00 Blood Culture - Preliminary Blood - Venous Prelim: Yeast Gram Stain only Assessment and Plan (1) Hydronephrosis concurrent with and due to calculi of kidney and ureter: Status: Acute (2) Sepsis: Status: Acute (3) Urinary tract infection: Status: Inactive (4) Fungemia: Status: Acute (5) Ureteral stent present: Status: Acute Plan 47F PMH hyperlipidemia, [id number] type 2 diabetes, GERD, nephrolithiasis admitted to for management of obstructive uropathy with hydronephrosis s/p left retrograde cystoscopy with stent insertion with consult placed to hospitalist service for management of sepsis and diabetes. severe sepsis due to UTI due to left ureteral obstruction complicated by fungemia and MIRI plan for stent exchange today continue caspofungin, follow up cultures renal function improved, monitor R otitis externa neomycin/polymixin tid while awake x 7 days [id number] type 2 diabetes- without hyperglycemia Humalog on sliding scale hold oral antihyperglycemics. Resume on discharge Quality Stroke Does the patient have a stroke diagnosis?: No VTE Prior VTE?: No VTE Risk Level:: Surgical - low VTE Device Contraindication: N/A - Device Ordered VTE Drug Contraindication: Treatment Not Tolerated
[2023-08-15 09:45] LABS: Platelet Count 148 X10*3/uL (160-400); SLIDE REVIEW VERIFIED; White Blood Count 10.5 X10*3/uL (4.8-10.8)
[2023-08-15 11:11] LABS: Glucose, Whole Blood 138 mg/dL (60-115)
[2023-08-15 13:33] LABS: Glucose, Whole Blood 122 mg/dL (60-115)
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
--- NOTE | 2023-08-15 14:33 | MHC.SHP ---
Pre-Procedural Eval Section A Date of Service: 08/15/23 The patient is an INPATIENT: Yes The History & Physical has been completed within 30 days and I have reviewed it.: Yes Section B Chief Complaint: Uti Sepsis, hydronephrosis, nephrolithiasis Allergies: Allergies Allergy/AdvReac Type Severity Reaction Status Date / Time pollard Allergy Intermediate Itching Verified 08/11/23 12:17 raspberry Allergy Intermediate Itching Verified 08/11/23 12:17 Plan Diagnosis/Plan: Unchanged I have reviewed the history and physical and performed a pertinent physical examination on my patient. No changes have occurred unless specified. Cystoscopy Left ureteral stent exchange. Time Spent With Patient Time: Total time managing care of this patient today ____ minutes.
--- NOTE | 2023-08-15 15:24 | W.PM.OPN ---
Operative Note Operative Note Date of Service: 08/15/23 Narrative: PreOperative Diagnosis:?? left nephrolithiasis, left hydronephrosis, left ureteral stent, fungemia Post Operative Diagnosis:?? left nephrolithiasis, left hydronephrosis, left ureteral stent, fungemia Procedure: Cystoscopy, left stent exchange, size 6 Macedonian by 26 cm Surgeon:?Dr Kareem Solorio Anesthesia:? General Indications: The patient is diabetic has a history of nephrolithiasis, was admitted for UTI Sepsis, hydronephrosis, urine and blood cultures positive for yeast. ID recommends to change stent. Procedure: After informed consent was verified the patient was brought to the operating placed on the OR table in supine position.? General Anesthesia was administered per protocol.? The patient was placed in lithotomy position, prepped and draped in the usual sterile fashion.? Safety pause time-out and side of surgery confirmed.? A 22 Macedonian cystoscope was inserted transurethrally, The bladder was visualized.? Both ureteric orifices were in normal position. The left ureteral stent was curled in the bladder. The? distal end of the ureteral stent was grasped with the flexible grasping forceps. The stent was pulled retrograde through the urethra. The stent was sent for c/s. The cystoscope was replaced, an open-ended ureteral catheter was passed into the left ureter to the proximal ureter a retrograde was done to delineate the renal pelvis. The guidewire was placed A? 6 Macedonian by 24 cm stent was placed initially and then the decision was made to change it to a 6 Macedonian by 26 cm length stent which was placed into the ureter and renal pelvis under a combination of fluoroscopy and direct visualization. The bladder was emptied.? The rigid cystoscope was removed. ? The patient tolerated the procedure well and was brought to the recovery room in stable condition. Complications: None Drains: Ureteral stent as dictated above- 6 Macedonian by 26 cm stent was left in place
[2023-08-15 16:17] LABS: Glucose, Whole Blood 113 mg/dL (60-115)
[2023-08-15 20:14] LABS: Glucose, Whole Blood 225 mg/dL (60-115)
[2023-08-15] MEDS: Amitriptyline HCl 10 MG TABLET PO (20:59)
[2023-08-15] MEDS: Atorvastatin Calcium 20 MG TABLET PO (20:59)
[2023-08-15] MEDS: Insulin Lispro 100 UNIT/ML 3 ML VIAL SUBCUT (20:59)
[2023-08-16] MEDS: Ibuprofen 600 MG TABLET PO (01:17)
[2023-08-16 04:11] VITALS: BP 110/67; PULSE 78; RESP 18; TEMP 36.7; O2SAT 97
[2023-08-16] MEDS: Omeprazole 40 MG CAPSULE.DR PO (06:14)
[2023-08-16 07:40] LABS: Glucose, Whole Blood 141 mg/dL (60-115)
[2023-08-16] MEDS: polyethylene glycoL 3350 17 GM POWD.PACK PO ×2 (08:14→21:51)
[2023-08-16] MEDS: Caspofungin Acetate 50 MG in 0.9 % Sodium Chloride 250 ML 250 MG IV (08:14)
[2023-08-16] MEDS: Docusate Sodium 100 MG CAPSULE PO ×2 (08:15→21:51)
[2023-08-16] MEDS: Tolterodine Tartrate LA 4 MG CAP.ER.24H PO (08:15)
[2023-08-16] MEDS: Sennosides 8.6 MG TABLET 17.2 MG PO (08:15)
[2023-08-16] MEDS: 0.9 % Sodium Chloride Flush 3 ML SYRINGE IVFLUSH ×3 (08:15→21:51)
[2023-08-16] MEDS: Fluticasone Propionate Nasal 16 GM SPRAY 1 SPRAY NOSTRIL-B ×2 (08:15→21:58)
[2023-08-16] MEDS: NeoMYCIN/Polymyxin/HC Otic Sol BOTTLE 4 DROP EAR-RIGHT ×3 (08:15→21:58)
[2023-08-16 08:40] LABS: Hematocrit 40.2 % (37.0-47.0); Hemoglobin 13.4 g/dl (12.0-16.0); Mean Corpuscular HGB Conc 33.3 g/dl (31.0-35.0); Mean Corpuscular Hemoglobin 29.7 pg (27.0-33.0); Mean Corpuscular Volume 89.1 fL (80.0-98.0); Mean Platelet Volume 10.7 fL (9.4-12.3); Platelet Count 179 X10*3/uL (160-400); Red Blood Count 4.51 X10*6/uL (4.20-5.50); Red Cell Distribution Width 13.7 % (11.0-16.0); White Blood Count 13.7 X10*3/uL (4.8-10.8)
[2023-08-16 08:52] LABS: Anion Gap 11 (12-20); Blood Urea Nitrogen 17 mg/dL (9-16); Calcium 9.5 mg/dL (8.4-10.2); Carbon Dioxide 24 mmol/L (22-29); Chloride 107 mmol/L (96-108); Creatinine Clr Calc Pharmacy 93.4; Estimated Glomerular Filt Rate 60; Glucose Fasting 148 mg/dL (60-99); Potassium 3.8 mmol/L (3.3-5.1); Sodium 138 mmol/L (135-145)
[2023-08-16 11:16] LABS: Glucose, Whole Blood 214 mg/dL (60-115)
[2023-08-16] MEDS: Insulin Lispro 100 UNIT/ML 3 ML VIAL SUBCUT ×2 (11:46→21:53)
--- NOTE | 2023-08-16 12:18 | HO.POSTANES ---
Post Anesthesia Evaluation Post Anesthesia Evaluation Date of Service: 08/16/23 Vital Signs: Vital Signs Temp Pulse Resp BP Pulse Ox O2 Del Method 08/16/23 04:11 98.0 F 78 18 110/67 97 Room Air Anesthesia: General Mental Status: Awake Pain Control: Satisfactory Nausea/Vomiting: None Hydration: Adequate Anesthesia-Related Issues: No Anes. Related Issues
--- NOTE | 2023-08-16 12:39 | P.PNIM_ITS ---
Subjective Subjective Date of Service: 08/16/23 Interval History: seen and evaluated feels better overall pending repeat blood cultures no fever or chills Review of Systems Review of Systems: Yes all other systems are reviewed and are negative Physical Exam 2 Vital Signs: Vital Signs: Last Vital Signs Temp 98.0 F 08/16/23 04:11 Pulse 78 08/16/23 04:11 Resp 18 08/16/23 04:11 BP 110/67 08/16/23 04:11 Pulse Ox 97 08/16/23 04:11 O2 Del Method Room Air 08/16/23 04:11 O2 Flow Rate 6 08/15/23 15:10 BMI result Body Mass Index 50.6 Const: Other: Constitutional : Awake, interactive, not in distress Neck : Normal inspection, Supple Cardiovascular : RRR, no JVP, no lower extremity edema Respiratory : good bilateral air entry, no crackles, wheezes or rhonchi Gastrointestinal: soft, lax, Normal bowel sounds, Non tender Skin : Warm, Dry Neurological : Alert & oriented x3, No focal deficit Objective Data Active Medications Acetaminophen (Acetaminophen 325 Mg Tablet) 650 mg PO Q4H PRN PRN Reason: Pain, Mild (Pain Scale 1-3) Last Admin: 08/14/23 17:09 Dose: 650 mg Documented By: MELE Acetaminophen (Acetaminophen 325 Mg Tablet) 650 mg PO ONCE PRN PRN Reason: Pain, Mild (Pain Scale 1-3) Hydrocodone Bitart/Acetaminophen (Hydrocodone Bit/Acetam 5/325 Tablet) 1 tab PO Q4H PRN PRN Reason: Pain, Moderate(Pain Scale 4-6) Last Admin: 08/15/23 09:06 Dose: 1 tab Documented By: DAISY Albuterol Sulfate (Albuterol Sulfate (0.083%) 2.5 Mg/3 Ml Vial.Neb) 2.5 mg INHALE ONCE PRN PRN Reason: Wheezing Amitriptyline HCl (Amitriptyline Hcl 10 Mg Tablet) 10 mg PO BEDTIME [facility] Last Admin: 08/15/23 20:59 Dose: 10 mg Documented By: MAKAYLA Atorvastatin Calcium (Atorvastatin Calcium 20 Mg Tablet) 20 mg PO BEDTIME [facility] Last Admin: 08/15/23 20:59 Dose: 20 mg Documented By: MAKAYLA Benzocaine (Throat Lozenge, Medicated Lozenge) 1 lozenge MUCOUS MEM Q2H PRN PRN Reason: Sore Throat Last Admin: 08/13/23 15:02 Dose: 1 lozenge Documented By: MELE Dextrose (Dextrose 50 % 25 Gm/50 Ml Syringe) 25 gm IVPUSH Q15M PRN; Protocol PRN Reason: per Hypoglycemia Standing Ord. Docusate Sodium (Docusate Sodium 100 Mg Capsule) 100 mg PO BID [facility] Last Admin: 08/16/23 08:15 Dose: 100 mg Documented By: DAISY Fentanyl (Fentanyl Citrate/Pf 100 Mcg/2 Ml Vial) 50 mcg IVPUSH Q5M PRN; Protocol PRN Reason: Pain, Severe (Pain Scale 7-10) Fentanyl (Fentanyl Citrate/Pf 100 Mcg/2 Ml Vial) 25 mcg IVPUSH Q5M PRN; Protocol PRN Reason: Pain, Moderate(Pain Scale 4-6) Fluticasone Propionate (Fluticasone Propionate Nasal 16 Gm [place]) 1 spray NOSTRIL-B BID [facility] Last Admin: 08/16/23 08:15 Dose: 1 spray Documented By: DAISY Glucose (Glucose Gel 15 Gm Gel..Gram.) 15 gm PO Q15M PRN; Protocol PRN Reason: per Hypoglycemia Standing Ord. Hydromorphone HCl (Hydromorphone Hcl 1 Mg/Ml Syringe) 0.5 mg IVPUSH Q3H PRN; Protocol PRN Reason: Pain, Severe (Pain Scale 7-10) Last Admin: 08/14/23 21:49 Dose: 0.5 mg Documented By: NELY Caspofungin 50 mg/ Sodium (Chloride) 250 mls @ 250 mls/hr IV Q24H [facility] Last Infusion: 08/16/23 09:14 Dose: Infused Documented By: DAISY Ibuprofen (Ibuprofen 600 Mg Tablet) 600 mg PO Q6H PRN PRN Reason: fever, mild pain Last Admin: 08/16/23 01:17 Dose: 600 mg Documented By: MAKAYLA Insulin Human Lispro (Insulin Lispro 100 Unit/Ml 3 Ml Vial) 0 unit SUBCUT QIDACHS [facility]; Protocol Last Admin: 08/16/23 11:46 Dose: 4 unit Documented By: DAISY Magnesium Hydroxide (Milk Of Magnesia 30 Ml Oral.Susp) 30 ml PO DAILY PRN PRN Reason: Constipation Melatonin (Melatonin 3 Mg Tablet) 3 mg PO BEDTIME PRN PRN Reason: Insomnia Neomycin/Polymyxin/Hydrocortisone (Neomycin/Polymyxin/Hc Otic Alyx Bottle) 4 drop EAR-RIGHT TID [facility] Stop: 08/20/23 09:01 Last Admin: 08/16/23 08:15 Dose: 4 drop Documented By: DAISY Omeprazole (Omeprazole 40 Mg Capsule.Dr) 40 mg PO DAILY@0630 [facility] Last Admin: 08/16/23 06:14 Dose: 40 mg Documented By: MAKAYLA Ondansetron HCl (Ondansetron Odt 4 Mg Tab.Rapdis) 4 mg TRANSLINGU Q8H PRN PRN Reason: Nausea And Vomiting Ondansetron HCl (Ondansetron Hcl 4 Mg/2 Ml Vial) 4 mg IVPUSH Q8H PRN PRN Reason: Nausea and Vomiting Ondansetron HCl (Ondansetron Hcl 4 Mg/2 Ml Vial) 4 mg IVPUSH ONCE PRN PRN Reason: Nausea and Vomiting Ondansetron HCl (Ondansetron Hcl 4 Mg/2 Ml Vial) 4 mg IVPUSH ONCE PRN PRN Reason: Nausea and Vomiting Oxycodone HCl (Oxycodone Hcl Immed Release 5 Mg Tablet) 5 mg PO ONCE PRN PRN Reason: Pain, Severe (Pain Scale 7-10) Oxycodone HCl (Oxycodone Hcl Immed Release 5 Mg Tablet) 5 mg PO ONCE PRN PRN Reason: Pain, Severe (Pain Scale 7-10) Polyethylene Glycol (Polyethylene Glycol 3350 17 Gm Powd.Pack) 17 gm PO BID [facility] Pseudoephedrine HCl (Pseudoephedrine Hcl 30 Mg Tablet) 30 mg PO Q6H PRN PRN Reason: Nasal Congestion Last Admin: 08/14/23 15:00 Dose: 30 mg Documented By: MELE Senna (Sennosides 8.6 Mg Tablet) 17.2 mg PO DAILY [facility] Last Admin: 08/16/23 08:15 Dose: 17.2 mg Documented By: DAISY Senna (Senna [place] Extract Oral Syrup 15 Ml Syrup) 7.5 ml PO BEDTIME [facility] Sodium Chloride (0.9 % Sodium Chloride Flush 3 Ml Syringe) 3 ml IVFLUSH QSHIFT [facility] Last Admin: 08/16/23 08:15 Dose: 3 ml Documented By: DAISY Tolterodine Tartrate (Tolterodine Tartrate La 4 Mg Cap.Er.24h) 4 mg PO DAILY [facility] Last Admin: 08/16/23 08:15 Dose: 4 mg Documented By: DAISY Labs 08/16/23 08:21 08/16/23 08:21 Labs: Laboratory Results - last 24 hr 08/15/23 08/15/23 08/15/23 13:27 16:13 20:09 MCV MCH MCHC RDW Plt Count MPV Absolute Nucleated RBC Nucleated RBC % (auto) Anion Gap Estim Creat Clear Calc Estimated GFR POC Glucose 122 H 113 225 H Fasting Glucose Calcium 08/16/23 08/16/23 08/16/23 07:33 08:21 11:07 MCV 89.1 MCH 29.7 MCHC 33.3 RDW 13.7 Plt Count 179 MPV 10.7 Absolute Nucleated RBC 0.000 Nucleated RBC % (auto) 0.0 Anion Gap 11 L Estim Creat Clear Calc 93.4 Estimated GFR 60 POC Glucose 141 H 214 H Fasting Glucose 148 H Calcium 9.5 Microbiology Microbiology Results: Microbiology 08/13/23 15:00 Blood Culture - Preliminary Blood - Venous Yeast 08/13/23 15:00 Blood Culture - Preliminary Blood - Venous Yeast 08/12/23 12:37 Blood Culture - Preliminary Blood - Venous Jaja lusitaniae 08/12/23 12:00 Blood Culture - Preliminary Blood - Venous Jaja lusitaniae 08/14/23 22:23 Blood Culture - Preliminary Blood - Venous No growth after 24 hours. 08/14/23 22:23 Blood Culture - Preliminary Blood - Venous No growth after 24 hours. 08/12/23 Unknown Urine Culture - Final Urine Other - Kidney Left Jaja lusitaniae Assessment and Plan (1) Fungemia: Status: Acute (2) Ureteral stent present: Status: Acute Plan 47F PMH hyperlipidemia, [id number] type 2 diabetes, GERD, nephrolithiasis admitted to for management of obstructive uropathy with hydronephrosis s/p left retrograde cystoscopy with stent insertion with consult placed to hospitalist service for management of sepsis and diabetes. # severe sepsis due to UTI due to left ureteral obstruction complicated by fungemia and MIRI left sided stent exchange done on 08/15 continue caspofungin, follow up cultures renal function improved, monitor Pending ID eval # R otitis externa neomycin/polymixin tid while awake x 7 days # [id number] type 2 diabetes- without hyperglycemia Humalog on sliding scale hold oral antihyperglycemics. Resume on discharge Thank you for the consult will continue to follow with you as needed Quality Stroke Does the patient have a stroke diagnosis?: No VTE Prior VTE?: No VTE Risk Level:: Surgical - low VTE Device Contraindication: N/A - Device Ordered VTE Drug Contraindication: Treatment Not Tolerated
--- NOTE | 2023-08-16 13:04 | MHC.CM.PN ---
Patient is not yet medically cleared for dc (cultures pending); home is the goal and CM will continue to follow.
[2023-08-16 15:29] VITALS: BP 127/87; PULSE 88; RESP 18; TEMP 37.1; O2SAT 98
[2023-08-16 15:41] LABS: Glucose, Whole Blood 146 mg/dL (60-115)
[2023-08-16] MEDS: Fluconazole in NaCl,Iso-Osm 400 MG/200 ML PIGGYBACK 100 MG IV ×2 (16:12→18:24)
[2023-08-16] MEDS: HYDROcodone Bit/Acetam 5/325 TABLET 1 TAB PO (16:59)
[2023-08-16 19:34] VITALS: BP 117/69; PULSE 85; RESP 20; TEMP 36.6; O2SAT 100
[2023-08-16 20:30] LABS: Glucose, Whole Blood 176 mg/dL (60-115)
[2023-08-16] MEDS: Amitriptyline HCl 10 MG TABLET PO (21:50)
[2023-08-16] MEDS: Atorvastatin Calcium 20 MG TABLET PO (21:50)
--- NOTE | 2023-08-16 23:51 | P.CNID_ITS ---
History of Present Illness Data of Consult Service Date: 08/16/23 Requesting physician: Mirian White Primary Care Provider: Milly Prince MD HPI Reason for consult: left fourth toe chronic wound She presents with left fourth toe plantar chronic wound. She has no fever or chill.s OM found left fourth toe area. No cultures.found Review of Systems 2 Review of Systems: Yes all other systems are reviewed and are negative PMFSH Past Medical History Medical History Urinary tract infection Blurry vision, left eye Cervical spine pain Internal and external hemorrhoids without complication Hemorrhoids Renal calculi BMI 45.0-49.9, adult Thiamine deficiency Dyslipidemia GERD (gastroesophageal reflux disease) Hematuria Thickened endometrium Abnormal uterine bleeding (AUB) Pure hypercholesterolemia Insomnia Kidney stone Ectopic Family History Family History Mother Osteoporosis Glaucoma Migraine Ovarian cancer Uterine cancer Sister Uterine cancer Maternal Grandfather Diabetes mellitus Paternal Grandmother Diabetes mellitus HTN (hypertension) Maternal Uncle Throat cancer Father HIV (human immunodeficiency virus infection) Sister Heart abnormality Sister Heart abnormality Epilepsy Brother No problems noted. Son No problems noted. Family/Other Substance use disorder Surgical History Surgical History Hx of lithotripsy H/O laparoscopy Hx of section Hx of cholecystectomy Hx of laparoscopic gastric banding Social History Social History Household Members: Children Housing: House Do you presently have visiting nurse or other home services: No Alcohol intake: former Patient Tobacco Use Status: Never used Tobacco e-Cigarette/Vaping Use: Never Used Second Hand Smoke Exposure: Yes service: No 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al status: employed 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al exposures/hazards: No Gender identity: Female Cognitive needs: No Hearing needs: No Vision needs: Yes (glasses) Meds Allergies Allergy/AdvReac Type Severity Reaction Status Date / Time pollard Allergy Intermediate Itching Verified 08/11/23 12:17 raspberry Allergy Intermediate Itching Verified 08/11/23 12:17 Active Medications: Current Medications Acetaminophen (Acetaminophen 325 Mg Tablet) 650 mg PO Q4H PRN PRN Reason: Pain, Mild (Pain Scale 1-3) Last Admin: 12/11/23 17:09 Dose: 650 mg Acetaminophen (Acetaminophen 325 Mg Tablet) 650 mg PO ONCE PRN PRN Reason: Pain, Mild (Pain Scale 1-3) Hydrocodone Bitart/Acetaminophen (Hydrocodone Bit/Acetam 5/325 Tablet) 1 tab PO Q4H PRN PRN Reason: Pain, Moderate(Pain Scale 4-6) Last Admin: 08/16/23 16:59 Dose: 1 tab Albuterol Sulfate (Albuterol Sulfate (0.083%) 2.5 Mg/3 Ml Vial.Neb) 2.5 mg INHALE ONCE PRN PRN Reason: Wheezing Amitriptyline HCl (Amitriptyline Hcl 10 Mg Tablet) 10 mg PO BEDTIME [facility] Last Admin: 08/16/23 21:50 Dose: 10 mg Atorvastatin Calcium (Atorvastatin Calcium 20 Mg Tablet) 20 mg PO BEDTIME [facility] Last Admin: 08/16/23 21:50 Dose: 20 mg Benzocaine (Throat Lozenge, Medicated Lozenge) 1 lozenge MUCOUS MEM Q2H PRN PRN Reason: Sore Throat Last Admin: 08/13/23 15:02 Dose: 1 lozenge Dextrose (Dextrose 50 % 25 Gm/50 Ml Syringe) 25 gm IVPUSH Q15M PRN; Protocol PRN Reason: per Hypoglycemia Standing Ord. Docusate Sodium (Docusate Sodium 100 Mg Capsule) 100 mg PO BID [facility] Last Admin: 08/16/23 21:51 Dose: 100 mg Fentanyl (Fentanyl Citrate/Pf 100 Mcg/2 Ml Vial) 50 mcg IVPUSH Q5M PRN; Protocol PRN Reason: Pain, Severe (Pain Scale 7-10) Fentanyl (Fentanyl Citrate/Pf 100 Mcg/2 Ml Vial) 25 mcg IVPUSH Q5M PRN; Protocol PRN Reason: Pain, Moderate(Pain Scale 4-6) Fluconazole (Fluconazole 100 Mg Tablet) 400 mg PO DAILY [facility] Fluticasone Propionate (Fluticasone Propionate Nasal 16 Gm [place]) 1 spray NOSTRIL-B BID [facility] Last Admin: 08/16/23 21:58 Dose: 1 spray Glucose (Glucose Gel 15 Gm Gel..Gram.) 15 gm PO Q15M PRN; Protocol PRN Reason: per Hypoglycemia Standing Ord. Hydromorphone HCl (Hydromorphone Hcl 1 Mg/Ml Syringe) 0.5 mg IVPUSH Q3H PRN; Protocol PRN Reason: Pain, Severe (Pain Scale 7-10) Last Admin: 08/14/23 21:49 Dose: 0.5 mg Ibuprofen (Ibuprofen 600 Mg Tablet) 600 mg PO Q6H PRN PRN Reason: fever, mild pain Last Admin: 08/16/23 01:17 Dose: 600 mg Insulin Human Lispro (Insulin Lispro 100 Unit/Ml 3 Ml Vial) 0 unit SUBCUT QIDACHS [facility]; Protocol Last Admin: 08/16/23 21:53 Dose: 2 unit Magnesium Hydroxide (Milk Of Magnesia 30 Ml Oral.Susp) 30 ml PO DAILY PRN PRN Reason: Constipation Melatonin (Melatonin 3 Mg Tablet) 3 mg PO BEDTIME PRN PRN Reason: Insomnia Neomycin/Polymyxin/Hydrocortisone (Neomycin/Polymyxin/Hc Otic Alyx Bottle) 4 drop EAR-RIGHT TID ON [facility] Stop: 08/20/23 09:01 Last Admin: 08/16/23 21:58 Dose: 4 drop Omeprazole (Omeprazole 40 Mg Capsule.Dr) 40 mg PO DAILY@0630 [facility] Last Admin: 08/16/23 06:14 Dose: 40 mg Ondansetron HCl (Ondansetron Odt 4 Mg Tab.Rapdis) 4 mg TRANSLINGU Q8H PRN PRN Reason: Nausea And Vomiting Ondansetron HCl (Ondansetron Hcl 4 Mg/2 Ml Vial) 4 mg IVPUSH Q8H PRN PRN Reason: Nausea and Vomiting Ondansetron HCl (Ondansetron Hcl 4 Mg/2 Ml Vial) 4 mg IVPUSH ONCE PRN PRN Reason: Nausea and Vomiting Ondansetron HCl (Ondansetron Hcl 4 Mg/2 Ml Vial) 4 mg IVPUSH ONCE PRN PRN Reason: Nausea and Vomiting Oxycodone HCl (Oxycodone Hcl Immed Release 5 Mg Tablet) 5 mg PO ONCE PRN PRN Reason: Pain, Severe (Pain Scale 7-10) Oxycodone HCl (Oxycodone Hcl Immed Release 5 Mg Tablet) 5 mg PO ONCE PRN PRN Reason: Pain, Severe (Pain Scale 7-10) Polyethylene Glycol (Polyethylene Glycol 3350 17 Gm Powd.Pack) 17 gm PO BID [facility] Last Admin: 08/16/23 21:51 Dose: 17 gm Pseudoephedrine HCl (Pseudoephedrine Hcl 30 Mg Tablet) 30 mg PO Q6H PRN PRN Reason: Nasal Congestion Last Admin: 08/14/23 15:00 Dose: 30 mg Senna (Sennosides 8.6 Mg Tablet) 17.2 mg PO DAILY [facility] Last Admin: 08/16/23 08:15 Dose: 17.2 mg Senna (Senna [place] Extract Oral Syrup 15 Ml Syrup) 7.5 ml PO BEDTIME [facility] Last Admin: 08/16/23 21:58 Dose: Not Given Sodium Chloride (0.9 % Sodium Chloride Flush 3 Ml Syringe) 3 ml IVFLUSH QSHIFT ON [facility] OF [facility] Last Admin: 08/16/23 21:51 Dose: 3 ml Tolterodine Tartrate (Tolterodine Tartrate La 4 Mg Cap.Er.24h) 4 mg PO DAILY [facility] Last Admin: 08/16/23 08:15 Dose: 4 mg Home Medications Medication Instructions Recorded Confirmed Last Taken Type levonorgestrel 21 mcg/24 hours (8 intrauterine 05/17/22 08/01/23 Unknown History yrs) 52 mg intrauterine device (Mirena) omeprazole 40 mg capsule,delayed 40 mg PO DAILY PRN Acid Reflux 08/12/23 08/12/23 Unknown History release ondansetron 4 mg disintegrating 4 mg PO Q8H PRN Nausea And Vomiting 08/12/23 08/12/23 Unknown History tablet pyridoxine (vitamin B6) 100 mg 100 mg PO DAILY 08/12/23 08/12/23 Unknown History tablet Physical Exam 2 Vital Signs: Vital Signs: Last Vital Signs Temp 97.9 F 08/16/23 19:34 Pulse 85 08/16/23 19:34 Resp 20 08/16/23 19:34 BP 117/69 08/16/23 19:34 Pulse Ox 100 08/16/23 19:34 O2 Del Method Room Air 08/16/23 19:34 O2 Flow Rate 6 08/15/23 15:10 BMI result Body Mass Index 50.6 Const: General: cooperative HEENT: Head: Yes normal to inspection Face and sinus: Yes normal facial exam Mouth: Normal oral and palatal mucosa present Teeth and gingiva: d entition normal Eyes: General: appearance normal, both eyes and all related structures P upils: Equal, round and reactive pupils present Resp: Effort & Inspection: normal respiratory effort Cardio: Rate: regular rate Rhythm: regular rhythm GI: Palpation (GI): Soft to palpation and nontender : General: Yes no CVA tenderness Back/Spine/Pelvis: Back: no CVA tenderness Skin: General skin exam: no rashes or lesions noted Neuro: General: moves all extremities Cranial nerves: Yes Equal, round and reactive pupils present Extrem: Other: reddened callus left fourth toe General: Yes normal to inspection Psych: Appearance: grossly normal Results Labs 08/16/23 08:21 08/16/23 08:21 Labs: Short CBC 08/16/23 Range/Units 08:21 WBC 13.7 H (4.8-10.8) X10*3/uL Hgb 13.4 (12.0-16.0) g/dl Hct 40.2 (37.0-47.0) % Plt Count 179 (160-400) X10*3/uL BMP 08/16/23 08:21 Sodium 138 Potassium 3.8 Chloride 107 Carbon Dioxide 24 BUN 17 H Creatinine 1.00 Calcium 9.5 Microbiology Microbiology Results: Microbiology 08/15/23 Unknown Catheter Tip - Other Catheter Tip Culture - Preliminary 08/13/23 15:00 Blood - Venous Blood Culture - Preliminary Yeast 08/13/23 15:00 Blood - Venous Blood Culture - Preliminary Yeast 08/12/23 12:37 Blood - Venous Blood Culture - Preliminary Jaja lusitaniae 08/12/23 12:00 Blood - Venous Blood Culture - Preliminary Jaja lusitaniae 08/14/23 22:23 Blood - Venous Blood Culture - Preliminary No growth after 24 hours. 08/14/23 22:23 Blood - Venous Blood Culture - Preliminary No growth after 24 hours. 08/12/23 Unknown Urine Other - Kidney Left Urine Culture - Final Jaja lusitaniae Assessment and Plan (1) Hydronephrosis concurrent with and due to calculi of kidney and ureter: Status: Acute She has probable sepsis due to left great toe OM (2) Sepsis: Status: Acute Six weeks IV Ertapenem with weekly CBC,creatinine and LFTs. See as outpatient also. Plan 47-year-old female with history of hyperlipidemia, [id number] type 2 diabetes, GERD, nephrolithiasis admitted to for management of obstructive uropathy with hydronephrosis s/p left retrograde cystoscopy with stent insertion with consult placed to hospitalist service for management of sepsis and diabetes. #Obstructive uropathy with left hydronephrosis s/p cystoscopy and left ureteral stent placement -plan per urology #severe sepsis- likely urinary source -leukocytosis 16, tachycardic, febrile. Acute lactic acidosis likely related to severe sepsis and metformin use. Resolved following IVF -2 g IV ceftriaxone daily -follow cultures -tylenol prn fevers # acute kidney injury- likely secondary to obstructive uropathy -given IVF in the ED -follow BMP -avoid nephrotoxins # [id number] type 2 diabetes -POC glucose -diabetic diet -Humalog on sliding scale -hold oral antihyperglycemics Thank you for this consult, will continue following along with you.
[2023-08-17] MEDS: Omeprazole 40 MG CAPSULE.DR PO (05:51)
[2023-08-17] MEDS: HYDROcodone Bit/Acetam 5/325 TABLET 1 TAB PO (05:54)
[2023-08-17 05:55] VITALS: BP 109/59; PULSE 93; RESP 20; TEMP 36.9; O2SAT 99
--- NOTE | 2023-08-17 07:00 | CA_ITS ---
Transthoracic Echocardiogram Patient (Last, First, Middle): Adela Damon, Gender: Female Date of : 1975 Age: 47 Procedure Date: 08/17/2023 Procedure Type: Transthoracic Echocardiogram Location: [facility] – [place] Height: 160.02 cm Weight: 129.28 kg BSA: 2.25 m2 Heart Rate: 91 bpm BP: 109 / 59 mmHg Search Engine Optimization Manager: SB Referring MD: Bonilla Winkler MD Symptoms: Candidemia to r\o vegetation Study Quality: Adequate/limited study ordered ECG Rhythm: Sinus Conclusions: - Limited study. - No obvious vegetation. - Consider a BABAK if clinically appropriate. Findings Procedure Information The study quality is limited by patients body habitus. Left Ventricle Normal left ventricular size and systolic function. There is normal left ventricular wall thickness. The visually estimated ejection fraction is between 55-60%. There is no evidence of regional wall motion abnormalities. Diastolic function is indeterminate on the basis of available data. Right Ventricle Normal right ventricular cavity size and systolic function. Aortic Valve There is a normal trileaflet aortic valve. Mitral Valve Normal mitral valve structure and function. There is no mitral valve regurgitation. There is no mitral valve stenosis. Pulmonic Valve The pulmonic valve was not well visualized. Tricuspid Valve Normal tricuspid valve structure and function. Pericardium/Pleural There is no evidence of pericardial effusion. Recommendations, Care & Conclusions Consider a BABAK if clinically appropriate. Measurements 2D Linear Measurements IVSd: 0.86 0.6-0.9/0.6-1.0 cm LVIDd: 4.98 3.9-5.3/4.2-5.9 cm LVIDd Index: 2.21 2.4-3.2/2.2-3.1 cm/m2 LVIDs: 3.31 2.0-3.6 cm LVPWd: 0.86 0.7-1.1 cm LV Mass: 184.63 67-162/88-224 g LV Mass Index: 82.06 43-95/49-115 g/m2 LVOT Diam: 2.00 3.0+(-)1.3 cm 2D Systolic Function EF 4C: 59.70 >55% LVOT LVOT Pk Jabari: 1.43 LVOT Mn Jabari: 0.91 LVOT VTI: 0.26 LVOT Pk Grad: 8.00 LVOT Mn Grad: 4.00 LVOT Diam: 2.00 LVOT Area: 3.14 Updated in Other Vendor System with Status of Final Jhon Castro MD electronically signed on 08/17/2023 11:51:40 AM with status of Final
[2023-08-17 07:20] LABS: Glucose, Whole Blood 101 mg/dL (60-115)
[2023-08-17] MEDS: Sennosides 8.6 MG TABLET 17.2 MG PO (09:43)
[2023-08-17] MEDS: NeoMYCIN/Polymyxin/HC Otic Sol BOTTLE 4 DROP EAR-RIGHT ×2 (09:43→16:44)
[2023-08-17] MEDS: Docusate Sodium 100 MG CAPSULE PO (09:43)
[2023-08-17] MEDS: polyethylene glycoL 3350 17 GM POWD.PACK PO (09:43)
[2023-08-17] MEDS: Tolterodine Tartrate LA 4 MG CAP.ER.24H PO (09:44)
[2023-08-17] MEDS: 0.9 % Sodium Chloride Flush 3 ML SYRINGE IVFLUSH (09:44)
[2023-08-17] MEDS: Fluconazole 100 MG TABLET 400 MG PO (09:44)
[2023-08-17] MEDS: Fluticasone Propionate Nasal 16 GM SPRAY 1 SPRAY NOSTRIL-B (09:52)
--- NOTE | 2023-08-17 10:34 | P.PNIM_ITS ---
Subjective Subjective Date of Service: 08/17/23 Interval History: seen and evaluated feels better overall negative repeat blood cultures no fever or chills Review of Systems Review of Systems: Yes all other systems are reviewed and are negative Physical Exam 2 Vital Signs: Vital Signs: Last Vital Signs Temp 98.5 F 08/17/23 05:55 Pulse 93 08/17/23 05:55 Resp 20 08/17/23 05:55 BP 109/59 L 08/17/23 05:55 Pulse Ox 99 08/17/23 05:55 O2 Del Method Room Air 08/17/23 05:55 O2 Flow Rate 6 08/15/23 15:10 BMI result Body Mass Index 50.6 Const: Other: Constitutional : Awake, interactive, not in distress Neck : Normal inspection, Supple Cardiovascular : RRR, no JVP, no lower extremity edema Respiratory : good bilateral air entry, no crackles, wheezes or rhonchi Gastrointestinal: soft, lax, Normal bowel sounds, Non tender Skin : Warm, Dry Neurological : Alert & oriented x3, No focal deficit Objective Data Active Medications Acetaminophen (Acetaminophen 325 Mg Tablet) 650 mg PO Q4H PRN PRN Reason: Pain, Mild (Pain Scale 1-3) Last Admin: 08/14/23 17:09 Dose: 650 mg Documented By: MELE Acetaminophen (Acetaminophen 325 Mg Tablet) 650 mg PO ONCE PRN PRN Reason: Pain, Mild (Pain Scale 1-3) Hydrocodone Bitart/Acetaminophen (Hydrocodone Bit/Acetam 5/325 Tablet) 1 tab PO Q4H PRN PRN Reason: Pain, Moderate(Pain Scale 4-6) Last Admin: 08/17/23 05:54 Dose: 1 tab Documented By: MAKAYLA Albuterol Sulfate (Albuterol Sulfate (0.083%) 2.5 Mg/3 Ml Vial.Neb) 2.5 mg INHALE ONCE PRN PRN Reason: Wheezing Amitriptyline HCl (Amitriptyline Hcl 10 Mg Tablet) 10 mg PO BEDTIME [facility] Last Admin: 08/16/23 21:50 Dose: 10 mg Documented By: MAKAYLA Atorvastatin Calcium (Atorvastatin Calcium 20 Mg Tablet) 20 mg PO BEDTIME [facility] Last Admin: 08/16/23 21:50 Dose: 20 mg Documented By: MAKAYLA Benzocaine (Throat Lozenge, Medicated Lozenge) 1 lozenge MUCOUS MEM Q2H PRN PRN Reason: Sore Throat Last Admin: 08/13/23 15:02 Dose: 1 lozenge Documented By: MELE Dextrose (Dextrose 50 % 25 Gm/50 Ml Syringe) 25 gm IVPUSH Q15M PRN; Protocol PRN Reason: per Hypoglycemia Standing Ord. Docusate Sodium (Docusate Sodium 100 Mg Capsule) 100 mg PO BID [facility] Last Admin: 08/17/23 09:43 Dose: 100 mg Documented By: CARLOS Fentanyl (Fentanyl Citrate/Pf 100 Mcg/2 Ml Vial) 50 mcg IVPUSH Q5M PRN; Protocol PRN Reason: Pain, Severe (Pain Scale 7-10) Fentanyl (Fentanyl Citrate/Pf 100 Mcg/2 Ml Vial) 25 mcg IVPUSH Q5M PRN; Protocol PRN Reason: Pain, Moderate(Pain Scale 4-6) Fluconazole (Fluconazole 100 Mg Tablet) 400 mg PO DAILY [facility] Last Admin: 08/17/23 09:44 Dose: 400 mg Documented By: CARLOS Fluticasone Propionate (Fluticasone Propionate Nasal 16 Gm [place]) 1 spray NOSTRIL-B BID [facility] Last Admin: 08/17/23 09:52 Dose: 1 spray Documented By: CARLOS Glucose (Glucose Gel 15 Gm Gel..Gram.) 15 gm PO Q15M PRN; Protocol PRN Reason: per Hypoglycemia Standing Ord. Hydromorphone HCl (Hydromorphone Hcl 1 Mg/Ml Syringe) 0.5 mg IVPUSH Q3H PRN; Protocol PRN Reason: Pain, Severe (Pain Scale 7-10) Last Admin: 08/14/23 21:49 Dose: 0.5 mg Documented By: NELY Ibuprofen (Ibuprofen 600 Mg Tablet) 600 mg PO Q6H PRN PRN Reason: fever, mild pain Last Admin: 08/16/23 01:17 Dose: 600 mg Documented By: MAKAYLA Insulin Human Lispro (Insulin Lispro 100 Unit/Ml 3 Ml Vial) 0 unit SUBCUT QIDACHS [facility]; Protocol Last Admin: 08/17/23 07:24 Dose: Not Given Documented By: CARLOS Non-Admin Reason: No Insulin Coverage Magnesium Hydroxide (Milk Of Magnesia 30 Ml Oral.Susp) 30 ml PO DAILY PRN PRN Reason: Constipation Melatonin (Melatonin 3 Mg Tablet) 3 mg PO BEDTIME PRN PRN Reason: Insomnia Neomycin/Polymyxin/Hydrocortisone (Neomycin/Polymyxin/Hc Otic Alyx Bottle) 4 drop EAR-RIGHT TID [facility] Stop: 08/20/23 09:01 Last Admin: 08/17/23 09:43 Dose: 4 drop Documented By: CARLOS Omeprazole (Omeprazole 40 Mg Capsule.Dr) 40 mg PO DAILY@0630 [facility] Last Admin: 08/17/23 05:51 Dose: 40 mg Documented By: MAKAYLA Ondansetron HCl (Ondansetron Odt 4 Mg Tab.Rapdis) 4 mg TRANSLINGU Q8H PRN PRN Reason: Nausea And Vomiting Ondansetron HCl (Ondansetron Hcl 4 Mg/2 Ml Vial) 4 mg IVPUSH Q8H PRN PRN Reason: Nausea and Vomiting Ondansetron HCl (Ondansetron Hcl 4 Mg/2 Ml Vial) 4 mg IVPUSH ONCE PRN PRN Reason: Nausea and Vomiting Ondansetron HCl (Ondansetron Hcl 4 Mg/2 Ml Vial) 4 mg IVPUSH ONCE PRN PRN Reason: Nausea and Vomiting Oxycodone HCl (Oxycodone Hcl Immed Release 5 Mg Tablet) 5 mg PO ONCE PRN PRN Reason: Pain, Severe (Pain Scale 7-10) Oxycodone HCl (Oxycodone Hcl Immed Release 5 Mg Tablet) 5 mg PO ONCE PRN PRN Reason: Pain, Severe (Pain Scale 7-10) Polyethylene Glycol (Polyethylene Glycol 3350 17 Gm Powd.Pack) 17 gm PO BID [facility] Last Admin: 08/17/23 09:43 Dose: 17 gm Documented By: CARLOS Pseudoephedrine HCl (Pseudoephedrine Hcl 30 Mg Tablet) 30 mg PO Q6H PRN PRN Reason: Nasal Congestion Last Admin: 08/14/23 15:00 Dose: 30 mg Documented By: MELE Senna (Sennosides 8.6 Mg Tablet) 17.2 mg PO DAILY [facility] Last Admin: 08/17/23 09:43 Dose: 17.2 mg Documented By: CARLOS Senna (Senna Keystone Extract Oral Syrup 15 Ml Syrup) 7.5 ml PO BEDTIME [facility] Last Admin: 08/16/23 21:58 Dose: Not Given Documented By: MAKAYLA Non-Admin Reason: Patient Refused Sodium Chloride (0.9 % Sodium Chloride Flush 3 Ml Syringe) 3 ml IVFLUSH QSHIFT [facility] Last Admin: 08/17/23 09:44 Dose: 3 ml Documented By: CARLOS Tolterodine Tartrate (Tolterodine Tartrate La 4 Mg Cap.Er.24h) 4 mg PO DAILY [facility] Last Admin: 08/17/23 09:44 Dose: 4 mg Documented By: CARLOS Labs 08/16/23 08:21 08/16/23 08:21 Labs: Laboratory Results - last 24 hr 08/16/23 08/16/23 08/16/23 11:07 15:30 19:38 POC Glucose 214 H 146 H 176 H 08/17/23 07:04 POC Glucose 101 Microbiology Microbiology Results: Microbiology 08/15/23 Unknown Catheter Tip Culture - Preliminary Catheter Tip - Other Yeast 08/13/23 15:00 Blood Culture - Preliminary Blood - Venous Jaja lusitaniae 08/13/23 15:00 Blood Culture - Preliminary Blood - Venous Jaja lusitaniae 08/14/23 22:23 Blood Culture - Preliminary Blood - Venous No growth after 48 hours. 08/14/23 22:23 Blood Culture - Preliminary Blood - Venous No growth after 48 hours. 08/12/23 12:37 Blood Culture - Preliminary Blood - Venous Jaja lusitaniae 08/12/23 12:00 Blood Culture - Preliminary Blood - Venous Jaja lusitaniae Assessment and Plan (1) Fungemia: Status: Acute Plan 47F PMH hyperlipidemia, lck-gixoyod-ownmifyaz type 2 diabetes, GERD, nephrolithiasis admitted to for management of obstructive uropathy with hydronephrosis s/p left retrograde cystoscopy with stent insertion with consult placed to hospitalist service for management of sepsis and diabetes. # severe sepsis due to UTI due to left ureteral obstruction complicated by fungemia and MIRI left sided stent exchange done on 08/15 DC caspofungin, Loaded with Diflucan 800 mg yesterday Negative blood cultures renal function improved, monitor ID input appreciated, Treated with Diflucan 400 mg daily for 4 weeks. (Started 08/16/23) # R otitis externa neomycin/polymixin tid while awake x 7 days # [id number]-[id number] type 2 diabetes- without hyperglycemia Humalog on sliding scale hold oral antihyperglycemics. Resume on discharge Thank you for the consult will continue to follow with you as needed. Please contact hospitalist team for any questions. Quality Stroke Does the patient have a stroke diagnosis?: No VTE Prior VTE?: No VTE Risk Level:: Surgical - low VTE Device Contraindication: N/A - Device Ordered VTE Drug Contraindication: Treatment Not Tolerated
[2023-08-17 11:13] LABS: Glucose, Whole Blood 172 mg/dL (60-115)
[2023-08-17] MEDS: Acetaminophen 325 MG TABLET 650 MG PO (11:47)
[2023-08-17] MEDS: Insulin Lispro 100 UNIT/ML 3 ML VIAL SUBCUT (11:47)
[2023-08-17 14:00] VITALS: BP 129/81; PULSE 76; RESP 18; TEMP 36.4; O2SAT 99
--- NOTE | 2023-08-17 16:08 | P.DS_ITS ---
DS: Providers Provider Date of Service: 08/17/23 Date of admission: 08/12/23 17:43 Primary care physician: Milly Prince MD Consults: 08/12/23 17:42 Consult to Hospitalist Routine Comment: Consulting Provider: Pao Ann Reason For Exam: diabetes, sepsis 08/13/23 17:50 Consult to Infectious Diseases Routine [place] [facility] [place] Reason for consultation: fungemia DS: Diagnosis Discharge Diagnosis (1) Fungemia: Status: Resolved DS: Summary Time Attestation Discharge coordination time: Greater than 30 minutes Quality: Safe Use of Opioids Does Pt have an Active Cancer Diagnosis on the Problem List?: No Quality: Stroke Does the patient have a stroke diagnosis?: No Physical Exam Vital Signs: Vital Signs: Last Vital Signs Temp 97.5 F 08/17/23 14:00 Pulse 76 08/17/23 14:00 Resp 18 08/17/23 14:00 BP 129/81 08/17/23 14:00 Pulse Ox 99 08/17/23 14:00 O2 Del Method Room Air 08/17/23 14:00 O2 Flow Rate 6 08/15/23 15:10 BMI result Body Mass Index 50.6 DS: Data Data Completed and Pending Labs on day of discharge: Laboratory Results - last 24 hr 08/16/23 08/17/23 08/17/23 19:38 07:04 10:59 POC Glucose 176 H 101 172 H Preliminary micro results at discharge 08/15/23 Unknown Catheter Tip Culture - Preliminary Catheter Tip - Other Yeast 08/13/23 15:00 Blood Culture - Preliminary Blood - Venous Jaja lusitaniae 08/13/23 15:00 Blood Culture - Preliminary Blood - Venous Jaja lusitaniae 08/14/23 22:23 Blood Culture - Preliminary Blood - Venous No growth after 48 hours. 08/14/23 22:23 Blood Culture - Preliminary Blood - Venous No growth after 48 hours. 08/12/23 12:37 Blood Culture - Preliminary Blood - Venous Jaja lusitaniae 08/12/23 12:00 Blood Culture - Preliminary Blood - Venous Jaja lusitaniae Discharge Plan Discharge Anticipated Discharge Date/Time: 08/17/23 15:38 Patient Disposition: Home, Self-Care Discharge Diagnosis: Nephrolithiasis, UTI Referrals: Milly Chambers MD [Primary Care Provider] - 1 Week Discharge Medications: Continued atorvastatin 20 mg tablet 20 mg PO BEDTIME 90 Days Qty: 90 1RF pyridoxine (vitamin B6) 100 mg tablet 100 mg PO DAILY omeprazole 40 mg capsule,delayed release(DR/EC) 40 mg PO DAILY PRN (Reason: Acid Reflux) Mirena 20 mcg/24 hours (7 yrs) 52 mg intrauterine device 1 device intrauterine CONT Discontinued naproxen 500 mg tablet 500 mg PO BID PRN (Reason: pain) 30 Days Qty: 30 1RF Hold Instructions: Resume on 07/21/23. ciprofloxacin HCl [Cipro] 500 mg tablet 500 mg PO BID Qty: 10 0RF oxycodone-acetaminophen [Percocet] 5-325 mg tablet 1 tab PO Q6H PRN (Reason: pain) Qty: 6 0RF Rx Instructions: Partial Fill upon patient request. ondansetron 4 mg tablet,disintegrating 4 mg PO Q8H PRN (Reason: Nausea And Vomiting) No Action amitriptyline 10 mg tablet 10 mg PO BEDTIME metformin 500 mg tablet 500 mg PO BID bisacodyl [Dulcolax (bisacodyl)] 5 mg tablet,delayed release (DR/EC) 20 mg PO ONCE 1 Days Qty: 4 0RF Rx Instructions: Day before procedure, prep day Take 4 tablets by mouth upon awakening followed by large glass of water polyethylene glycol 3350 [Miralax] 17 gram/dose powder 238 g PO ONCE PRN (Reason: laxative effect) 1 Days Qty: 238 0RF Rx Instructions: Take as directed by mouth the day before your procedure. Discharge Orders: Discharge Order (Routine); Ordered 08/17/23 Ordered By: Kareem Solorio Diet: Advance to usual diet Activity on Discharge: As tolerated Stand Alone Forms: Patient Portal Discharge page, Work/School Release Care Plan Goals: Outpatient treatment with PO diflucan for fungemia Health Concerns: Follow up with Urology for stent and stone management Plan of Treatment: Fungemia -needs outpt follow up with opthamology per ID Assessment: Nephrolithiasis, ureteral stent present, fungemia, CoMorbidity Diabetes Discharge Date/Time: 08/17/23 17:32
[2023-08-17 16:21] LABS: Glucose, Whole Blood 121 mg/dL (60-115)
--- NOTE | 2023-09-12 14:00 | P.CDIM_ITS ---
PROVIDER RESPONSE TEXT: To clarify, the appropriate diagnosis supported by the clinical indicators: Obesity Due to excess calories QUERY TEXT: PHYSICIAN'S DOCUMENTATION REQUEST Date of Query: 08/16/2023 10:16 AM EST Patient Name: Adela Damon Admit Date: 08/12/2023 Dear Kareem Solorio, A review of the medical record indicates additional documentation may be needed. Please review below and update the documentation accordingly. Clinical Indicators: Height: ( ) 5'3 Weight: ( ) 129.7 kg BMI: ( ) 50.7 Other Clinical Notes Supporting Significance of the BMI: Per Nutritional Risk Assessment 08/14/23: on therapeutic diet If possible, please provide an associated diagnosis related to the abnormal BMI, such as: Overweight Obesity Due to excess calories Obesity Drug induced Obesity Due to other cause Specify the other cause Severe or Morbid Obesity With alveolar hypoventilation Severe or Morbid Obesity Without alveolar hypoventilation BMI is not significant Other (explain) Clinically unable to determine (explain) Thank you, Trina Funk RN Use of terms such as suspected, likely, concern for, or probable (associated with a specific diagnosi s that is being evaluated, monitored, or treated as if it exists) are acceptable and can be coded in the inpatient se tting, when documented at the time of discharge. Please use your independent medical judgment in providing your response. THIS QUERY IS PART OF THE PERMANENT MEDICAL RECORD
== END 2023-08-17 17:32 | disposition home or self-care (01) | DRG 720 ==
LOC: HO.ED 16:11 → HO.SSS 16:21 → HO.EDOVER 18:03 → HO.IMC 19:02
PROVIDERS: Internal Medicine; Nurse Practitioner Family; Physician Assistant; Admitting Provider Urology; Emergency Provider Emergency Medicine Emergency Medical Services; PCP Internal Medicine; Visit Provider Urology
PROC: 0T778DZ Dilation of Left Ureter with Intraluminal Device, Via Natural or Artificial Opening Endoscopic (ICD-10-PCS; principal; 2023-08-12 16:45)
PROC: 0TP98DZ Removal of Intraluminal Device from Ureter, Via Natural or Artificial Opening Endoscopic (ICD-10-PCS; principal; 2023-08-15 13:30)
DX: B37.7 Candidal sepsis (principal); R65.20 Severe sepsis without septic shock; N17.9 Acute kidney failure, unspecified; N13.6 Pyonephrosis; E11.9 Type 2 diabetes mellitus without complications; H60.91 Unspecified otitis externa, right ear; Z68.43 Body mass index [BMI] 50.0-59.9, adult; K59.00 Constipation, unspecified; E66.01 Morbid (severe) obesity due to excess calories; Z20.822 Contact with and (suspected) exposure to COVID-19; Z79.84 Long term (current) use of oral hypoglycemic drugs; Z79.899 Other long term (current) drug therapy
CPT/HCPCS: 0241U; 36415; 52310; 71045; 74018; 74178; 80048; 80053; 80076; 81001; 81025; 82947; 83605; 83690; 84484; 85025; 85027; 87040; 87070; 87071; 87077; 87086; 87088; 87186; 87205; 87633; 87651; 90686; 93005; 93308; 99285; C1758; C2617; J0637; J0690; J0696; J0736; J1100; J1170; J1450; J1650; J2250; J2270; J2371; J2405; J2704; J3010; Q9967

== ENCOUNTER → 2023-08-12 12:50 | Outpatient (BNV) | payer OTHER, SELFPAY | PROVIDERS: Emergency Provider Emergency Medicine Emergency Medical Services; PCP Internal Medicine; Visit Provider Urology | DX: B49 Unspecified mycosis (principal) | CPT/HCPCS: 52332; 99222; 99232; 99239 ==

== ENCOUNTER 2023-08-12 17:43 | Outpatient (BNV) | payer OTHER, SELFPAY | END 2023-08-17 07:00 | PROVIDERS: Admitting Provider Urology; Emergency Provider Emergency Medicine Emergency Medical Services; PCP Internal Medicine; Visit Provider Internal Medicine Cardiovascular Disease | DX: A41.9 Sepsis, unspecified organism (principal) | CPT/HCPCS: 93308 ==

== ENCOUNTER 2023-08-12 17:43 | Outpatient (BNV) | payer OTHER, SELFPAY | END 2023-08-13 14:09 | PROVIDERS: Admitting Provider Urology; Emergency Provider Emergency Medicine Emergency Medical Services; PCP Internal Medicine; Visit Provider Internal Medicine Cardiovascular Disease | DX: R00.0 Tachycardia, unspecified (principal); R94.31 Abnormal electrocardiogram [ECG] [EKG] | CPT/HCPCS: 93010 ==

== ENCOUNTER → 2023-08-12 17:43 | Outpatient (BNV) | payer OTHER, SELFPAY | PROVIDERS: Admitting Provider Urology; Emergency Provider Emergency Medicine Emergency Medical Services; PCP Internal Medicine; Visit Provider Physician Assistant | DX: B49 Unspecified mycosis (principal) | CPT/HCPCS: 99222; 99232; 99233 ==

== ENCOUNTER → 2023-08-12 17:43 | Outpatient (BNV) | payer OTHER, SELFPAY | PROVIDERS: Admitting Provider Urology; Emergency Provider Emergency Medicine Emergency Medical Services; PCP Internal Medicine; Visit Provider Internal Medicine | DX: N13.2 Hydronephrosis with renal and ureteral calculous obstruction (principal); A41.9 Sepsis, unspecified organism | CPT/HCPCS: 99222 ==

== ENCOUNTER 2023-08-29 20:09 | Inpatient (IN) | payer OTHER, SELFPAY ==
--- NOTE | ~2023-08-29 | XR_ITS ---
EXAMINATION: XR CHEST CLINICAL INFORMATION: Fever. COMPARISON: 08/13/2023. TECHNIQUE: Frontal view of the chest was obtained. FINDINGS: The cardiomediastinal silhouette is stable. Minimal lingular scarring is again seen. The lungs are otherwise clear. There are no significant pleural effusions. The bony structures and soft tissues are unremarkable. XR/XR chest 1V IMPRESSION: Unremarkable examination.
--- NOTE | ~2023-08-29 | CT_ITS ---
EXAMINATION: CT ABDOMEN AND PELVIS WITHOUT AND WITH CONTRAST CLINICAL INFORMATION: 4 anemia. Evaluate for stone. COMPARISON: None available. TECHNIQUE: Multidetector volumetric imaging was performed of the abdomen and pelvis before and after the IV administration of 85 mL of Omnipaque 350 intravenous contrast. Sagittal and coronal reformatted images were obtained on the technologist's workstation. This CT examination was performed using dose optimization techniques as appropriate, variously including the following: *Automated exposure control *Adjustment of mA and/or kV according to patient size (this includes techniques or standardized protocols for targeted exams where dose is matched to indication/reason for exam; i.e. extremities or head) *Use of iterative reconstruction technique DLP: 1737 mGy-cm FINDINGS: LUNG BASES: There is platelike atelectasis right lower lobe. Heart size is normal. LIVER, GALLBLADDER, AND BILIARY TREE: The liver is normal in size, shape, and attenuation. No focal hepatic lesion or biliary ductal dilatation is present. The gallbladder has been surgically removed. PANCREAS: Unremarkable SPLEEN: Unremarkable ADRENAL GLANDS: Unremarkable KIDNEYS AND URETERS: The kidneys are normal in size, shape, and attenuation. There is 3 mm and 6 mm radiopaque calculi adjacent to each other in lower pole calyx left kidney without caliectasis. There is a left ureteral stent with no radiopaque calculi seen adjacent or surrounding the stent in the kidney pelvis or the ureter.. Postcontrast both kidney nephrograms are symmetrical in size. Small cortical defect upper pole likely scarring. No enhancing renal mass, cyst or hydronephrosis seen. BLADDER: The bladder is nondistended and appears unremarkable. GASTROINTESTINAL TRACT: Scattered stool and gas is seen throughout the colon without significant distention. The small bowel loops are normal caliber. Appendix is not visualized no free air or free fluid. ABDOMINAL WALL: There is no evidence of hiatal hernia. There are punctate gas seen within the anterior abdominal wall likely related to 2 subcutaneous injections. LYMPH NODES: There are multiple small left para-aortic lymph nodes visualized with largest nodes measuring 1.4 and 1.7 cm. VASCULAR: Unremarkable PELVIC VISCERA: The uterus is anteverted with an IUD well located within endometrial canal. OSSEOUS STRUCTURES: No aggressive lytic or sclerotic process seen. CT/CT abdomen pelvis wo/w IV con IMPRESSION: 1. Nonobstructive radiopaque calculi lower pole left kidney. There is a left ureteral stent with no radiopaque calculi seen adjacent to or surrounding the stent in the kidney pelvis or the ureter. 2. Mild constipation. Fleischner guidelines were followed.
[2023-08-29 21:18] VITALS: BP 115/81; PULSE 114; RESP 18; TEMP 37.7; O2SAT 97; BMI 47.0
[2023-08-29 21:52] LABS: Appearance Urine Clear; Color Urine Dark Yellow; Glucose Urine UA Negative (Negative); Leukocyte Esterase Urine Small (1+) (Negative); Nitrite Urine Negative (Negative); Specific Gravity - Urine 1.015 (1.005-1.025); UMIC TRIGGER UACC YES; Urine Blood Trace (Negative); Urine Ketones Negative (Negative); Urine Protein 30 (1+) mg/dL (Neg-Trace)
[2023-08-29 21:57] LABS: Bacteria Urine None Seen (None Seen); Hyaline Casts Urine 0-2 /LPF (0-2); UACC Culture Trigger YES
[2023-08-29 22:07] LABS: Alanine Aminotransferase 62 U/L (0-31); Alkaline Phosphatase 138 U/L (39-117); Anion Gap 15 (12-20); Aspartate Amino Transferase 56 U/L (5-31); Bilirubin Total 1.1 mg/dL (0.0-1.0); Blood Urea Nitrogen 11 mg/dL (9-16); Calcium 10.4 mg/dL (8.4-10.2); Carbon Dioxide 25 mmol/L (22-29); Chloride 103 mmol/L (96-108); Creatinine Clr Calc Pharmacy 76.9; Estimated Glomerular Filt Rate 51; Glucose Random 116 mg/dL (60-115); Potassium 4.1 mmol/L (3.3-5.1); Sodium 139 mmol/L (135-145); Total Protein 9.1 g/dL (6.5-8.0)
[2023-08-29 22:18] LABS: Basophils Absolute Auto 0.1 X10*3/uL (0.0-0.2); Basophils Percent Auto 0.3 % (0-2); Eosinophils Absolute Auto 0.1 X10*3/uL (0.0-0.4); Eosinophils Percent Auto 0.7 % (0-4); Hematocrit 43.4 % (37.0-47.0); Hemoglobin 14.3 g/dl (12.0-16.0); Imm Gran Abs Auto 0.06 X10*3/uL (0.00-0.03); Imm Gran Pct Auto 0.4 % (0.0-0.4); Lymphocytes Absolute Auto 3.7 X10*3/uL (1.2-4.9); Lymphocytes Percent Auto 24.5 % (20-40); MANUAL DIFF FLAG SCAN; Mean Corpuscular HGB Conc 32.9 g/dl (31.0-35.0); Mean Corpuscular Hemoglobin 29.2 pg (27.0-33.0); Mean Corpuscular Volume 88.6 fL (80.0-98.0); Mean Platelet Volume 10.1 fL (9.4-12.3); Monocytes Absolute Auto 1.6 X10*3/uL (0.1-1.2); Monocytes Percent Auto 10.4 % (2-11); Neutrophils Absolute Auto 9.5 x10*3/uL (2.0-8.3); Neutrophils Percent Auto 63.7 % (45-73); Platelet Count 344 X10*3/uL (160-400); Red Cell Distribution Width 13.3 % (11.0-16.0); SCAN SMEAR FLAG 1; White Blood Count 14.9 X10*3/uL (4.8-10.8)
[2023-08-29 22:36] LABS: SLIDE REVIEW VERIFIED
[2023-08-29 23:23] LABS: Lipase 21 U/L (8-78)
--- NOTE | 2023-08-29 23:35 | ED_ITS ---
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 Patient had recent admission to the hospital for obstructive uropathy with hydronephrosis s/p left cystoscopy with stent insertion patient is taken fluconazole 400 mg tablet daily for 2 weeks, due to fungemia patient had left ureteric stent exchanged with a new 1 before discharge despite that patient been having high fever at home last fever was today 101.6 patient take Tylenol and the fever was under control then. Related Data Home Medications Medication Instructions Recorded Confirmed levonorgestrel 21 mcg/24 hours (8 intrauterine 05/17/22 08/01/23 yrs) 52 mg intrauterine device (Mirena) omeprazole 40 mg capsule,delayed 40 mg PO DAILY PRN Acid Reflux 08/12/23 08/12/23 release pyridoxine (vitamin B6) 100 mg 100 mg PO DAILY 08/12/23 08/12/23 tablet Previous Rx's Medication Instructions Recorded amitriptyline 10 mg tablet 10 mg PO BEDTIME 30 days #30 tabs 01/31/23 metformin 500 mg tablet 500 mg PO BID 90 days #180 tabs 04/28/23 atorvastatin 20 mg tablet 20 mg PO BEDTIME 90 days #90 tabs 05/21/23 fluconazole 200 mg tablet 400 mg (2 x 200 mg) PO DAILY 4 08/17/23 (Diflucan) weeks #56 tabs tramadol 50 mg tablet 50 - 100 mg (1 - 2 x 50 mg) PO 08/18/23 Q4-6H PRN headache 7 days #42 tabs solifenacin 10 mg tablet 10 mg PO DAILY for bladder muscle 08/25/23 dysfunction #30 tabs Allergies Allergy/AdvReac Type Severity Reaction Status Date / Time pollard Allergy Intermediate Itching Verified 08/29/23 21:17 raspberry Allergy Intermediate Itching Verified 08/29/23 21:17 Review of Systems 2 Review of Systems: All other systems are reviewed and are negative Constitutional: Reports as per HPI and Reports no additional constitutional complaints Eyes: Reports as per HPI and Reports no additional eye complaints Reports system reviewed and no additional complaints, except as documented Cardiovascular: Reports as per HPI and Reports no additional cardiovascular complaints Respiratory: Reports as per HPI and Reports no additional respiratory complaints Gastrointestinal: Reports as per HPI and Reports no additional gastrointestinal complaints Genitourinary: Reports no additional female genitourinary complaints Musculoskeletal: Reports no additional musculoskeletal complaints Skin/Breast: Reports system reviewed and no additional complaints, except as docu Psychiatric: Reports no additional psychiatric complaints Endocrine: Reports no additional endocrine complaints Hematologic/Lymphatic: Reports no additional hematologic/lymphatic complaints Allergic/Immunologic: Reports no additional allergic/immunologic complaints Reports system reviewed and no additional complaints, except as documented and Reports Abnormal speech present PMFSH Past Medical History Medical History Urinary tract infection Blurry vision, left eye Cervical spine pain Internal and external hemorrhoids without complication Hemorrhoids Renal calculi BMI 45.0-49.9, adult Thiamine deficiency Dyslipidemia GERD (gastroesophageal reflux disease) Hematuria Thickened endometrium Abnormal uterine bleeding (AUB) Pure hypercholesterolemia Insomnia Kidney stone Ectopic Surgical History Hx of lithotripsy H/O laparoscopy Hx of section Hx of cholecystectomy Hx of laparoscopic gastric banding Family History Family History Mother Osteoporosis Glaucoma Migraine Ovarian cancer Uterine cancer Sister Uterine cancer Maternal Grandfather Diabetes mellitus Paternal Grandmother Diabetes mellitus HTN (hypertension) Maternal Uncle Throat cancer Father HIV (human immunodeficiency virus infection) Sister Heart abnormality Sister Heart abnormality Epilepsy Brother No problems noted. Son No problems noted. Family/Other Substance use disorder Social History Social History Household Members: Children Housing: House Do you presently have visiting nurse or other home services: No Alcohol intake: never Patient Tobacco Use Status: Never used Tobacco Smoked in Last 30 Days: No e-Cigarette/Vaping Use: Never Used Second Hand Smoke Exposure: Yes Use of substances other than those prescribed or required for medical reasons: No Advance Directives: No Advance Directives Information Provided: No Patient : No service: No 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al status: employed 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al exposures/hazards: No Gender identity: Female Cognitive needs: No Hearing needs: No Vision needs: Yes (glasses) Physical Exam 2 Vital Signs: Vital Signs: Last Vital Signs Temp 99.3 F 08/29/23 23:40 Pulse 109 H 08/29/23 23:40 Resp 18 08/29/23 23:40 BP 110/72 08/29/23 23:40 Pulse Ox 97 08/29/23 23:40 O2 Del Method Room Air 08/29/23 23:40 BMI result Body Mass Index 47.0 Vital signs have been reviewed and appear to be correct. Blood pressure elevated. Tachycardia. Respiratory rate normal. Temperature normal. Oxygen saturation normal. Appearance: Alert. Oriented X3. No acute distress. Head: Normal external exam. Normocephalic. Atraumatic. No Pruitt signs noted. No raccoon eyes noted Eyes: PERRLA. EOMI. Conjunctiva and sclera normal. Eyelids normal. ENT: TM's Normal. Pharynx normal. Uvula midline. Moist mucous membranes. No trismus noted. No drooling noted. No muffled voice noted. Neck: Normal inspection. Neck supple. FROM. No adenopathy. Thyroid Normal. No meningeal signs. No neck mass noted. CVS: Normal heart rate and rhythm. Heart sound normal. No murmurs noted. Pulses normal throughout. Respiratory: No respiratory distress. Painless inspiration. Breath sounds normal. No wheezes/rales/rhonchi noted. Chest nontender. No accessory muscle usage noted or decreased air movement noted. Abdomen: Soft and nontender. Bowel sounds normal in all 4 quadrants. No distention noted. No organomegaly noted. No visible injury noted. Back: No CVA tenderness. Full range of motion noted. Skin: Skin warm and dry. Normal skin color. Normal skin turgor. No rashes/lesions/lacerations noted. Extremities: No lower extremity edema. Extremities exhibit normal range of motion. Extremities nontender. Neuro: Oriented X 3. Cranial nerve exam: II-XII are grossly intact No motor deficit. No sensory deficit. Reflexes normal. Course Reevaluation(s) Reevaluation #1: 47-year-old female s/p left obstructive uropathy and stent in the left ureter patient has fungemia and UTI already taking fluconazole orally at home with no improvement here today for persistent fever, will cover for fungemia given fluconazole IV and also cover for bacterial infection. no severe sepsis or septic shock. patient has no abdominal pain and no abdominal tenderness on exam in particular there is no CVA tenderness, unable to reach out to Dr. Sarabia covering urology is tonight will admit the patient to the medical service and will obtain inpatient urology consultation in the a.m. Elevated LFTs likely due to body habitus and morbid obesity patient had history of cholecystectomy. Time: 00:31 Medications Administered Discontinued Medications Generic Name Dose Route Start Last Admin Trade Name Freq PRN Reason Stop Dose Admin Sodium Chloride 1,000 mls @ 999 mls/hr 08/29/23 23:54 08/30/23 00:50 Ns IV 08/30/23 00:54 999 mls/hr .Q1H1M ONE Administration Ceftriaxone Sodium 1 gm/ 50 mls @ 100 mls/hr 08/30/23 00:34 08/30/23 00:50 Sodium Chloride IV 08/30/23 01:03 100 mls/hr ONCE ONE Administration Medical Decision Making Differential Diagnosis Differential Diagnoses: The differential diagnosis associated with the presentation includes ( fungemia, UTI, Sirs, severe anemia, electrolyte abnormality.) Admission/Observation Consideration of admission/observation: Escalation of care including admission/observation considered Lab Data MDM Lab Attestation statement: I reviewed the patient's lab results. 08/29/23 22:13 08/29/23 21:44 Labs: Lab Results 08/29/23 08/29/23 08/30/23 Range/Units 21:44 22:13 00:08 WBC 14.9 H (4.8-10.8) X10*3/uL RBC 4.90 (4.20-5.50) X10*6/uL Hgb 14.3 (12.0-16.0) g/dl Hct 43.4 (37.0-47.0) % MCV 88.6 (80.0-98.0) fL MCH 29.2 (27.0-33.0) pg MCHC 32.9 (31.0-35.0) g/dl RDW 13.3 (11.0-16.0) % Plt Count 344 D (160-400) X10*3/uL MPV 10.1 (9.4-12.3) fL Immature Gran % (Auto) 0.4 (0.0-0.4) % Neut % (Auto) 63.7 (45-73) % Lymph % (Auto) 24.5 (20-40) % [place] % (Auto) 10.4 (2-11) % Eos % (Auto) 0.7 (0-4) % Baso % (Auto) 0.3 (0-2) % Lymph # (Auto) 3.7 (1.2-4.9) X10*3/uL [place] # (Auto) 1.6 H (0.1-1.2) X10*3/uL Eos # (Auto) 0.1 (0.0-0.4) X10*3/uL Baso # (Auto) 0.1 (0.0-0.2) X10*3/uL Abs Immat Gran (auto) 0.06 H (0.00-0.03) X10*3/uL Absolute Neuts (auto) 9.5 H (2.0-8.3) x10*3/uL Absolute Nucleated RBC 0.000 (0.0-0.012) X10*3/uL Nucleated RBC % (auto) 0.0 (0.0-0.2) /100WBC Smear Tech's Comments VERIFIED Sodium 139 (135-145) mmol/L Potassium 4.1 (3.3-5.1) mmol/L Chloride 103 (96-108) mmol/L Carbon Dioxide 25 (22-29) mmol/L Anion Gap 15 (12-20) BUN 11 (9-16) mg/dL Creatinine 1.16 (0.5-1.4) mg/dL Estim Creat Clear Calc 76.9 Estimated GFR 51 Random Glucose 116 H (60-115) mg/dL Lactic Acid 1.1 (0.5-2.0) mmol/L Calcium 10.4 H D (8.4-10.2) mg/dL Total Bilirubin 1.1 H (0.0-1.0) mg/dL AST 56 H (5-31) U/L ALT 62 H (0-31) U/L Alkaline Phosphatase 138 H (39-117) U/L Total Protein 9.1 H (6.5-8.0) g/dL Albumin 4.0 (3.5-5.0) g/dL Lipase 21 (8-78) U/L Urine Color Dark Yellow Urine Appearance Clear Urine pH 6.0 (5.0-9.0) Ur Specific [place] 1.015 (1.005-1.025) Urine Protein 30 (1+) H (Neg-Trace) mg/dL Urine Glucose (UA) Negative (Negative) mg/dL Urine Ketones Negative (Negative) mg/dL Urine Blood Trace H (Negative) Urine Nitrite Negative (Negative) Ur Leukocyte Esterase Small (1+) H (Negative) Urine RBC 3-5 H (0-2) /HPF Urine WBC 6-10 H (0-5) /HPF Ur Squamous Epith Cells 3-5 (0-2) /HPF Urine Bacteria None Seen (None Seen) Hyaline Casts 0-2 (0-2) /LPF Influenza Type A (PCR) NEGATIVE (Negative) Influenza Type B (PCR) NEGATIVE (Negative) RSV RNA Qual (PCR) NEGATIVE (Negative) SARS-CoV-2 RNA (RT-PCR) NEGATIVE (Negative) Independent Interpretation I performed an independent interpretation of an: Ultrasound Radiology Impression Discussion of test interpretation with radiology: I have reviewed the radiologist's reading. Discharge Plan Discharge Clinical Impression: Fungemia, UTI (urinary tract infection), Transaminitis Patient Disposition: Admitted As Inpatient
[2023-08-29 23:40] VITALS: BP 110/72; PULSE 109; RESP 18; TEMP 37.4; O2SAT 97
--- NOTE | 2023-08-30 | PC.NURSE ---
Pt A&Ox3, reports 4/10 constant bilateral flank pain starting yesterday, pt reports pain is pinching in feeling. Pt denies any burning/pain with urination. Pt ambulates to BR with steady gait. IV line placed.
[2023-08-30 00:39] LABS: Lactic Acid 1.1 mmol/L (0.5-2.0)
[2023-08-30] MEDS: 0.9 % Sodium Chloride 1,000 ML 999 ML IV (00:50)
[2023-08-30] MEDS: cefTRIAXone sodium 1 GM in 0.9 % Sodium Chloride 50 ML IV ×2 (00:50→08:18)
[2023-08-30 01:03] LABS: Influenza A PCR NEGATIVE (Negative); Influenza B PCR NEGATIVE (Negative); Resp Syncy Virus RNA Qual PCR NEGATIVE (Negative); SARS COV2 PCR INHOUSE NEGATIVE (Negative)
[2023-08-30] MEDS: Fluconazole in NaCl,Iso-Osm 400 MG/200 ML PIGGYBACK 100 MG IV (01:59)
--- NOTE | 2023-08-30 02:48 | PC.NURSE ---
Med rec done, Pt able to verbalize home meds.
[2023-08-30 03:03] VITALS: BP 105/60; PULSE 89; RESP 16; TEMP 37.3; O2SAT 97
--- NOTE | 2023-08-30 06:13 | P.HPHOSP_ITS ---
History of Present Illness Date of Service: 08/30/23 Attending physician on admission: London Celeste Chief Complaint: Bilateral flank pain, fevers/chills, headaches and fatigue x 3 days Patient is a 47-year-old female with history of hyperlipidemia, umb-[id number] type 2 diabetes, GERD, nephrolithiasis and recent admission (08/12/23 - 08/17/23) for obstructive uropathy with hydronephrosis s/p left cystoscopy with stent placement that was complicated by severe urosepsis, candidemia and acute renal failure who returns to the emergency room tonight complaining of feeling unwell over the last 3 days with intermittent fevers (TMax of 102.1)at home with chills, headaches and generalized fatigue. She was started on Fluconazole 400mg daily for the candidemia and has taken it for 2 weeks (08/16 - 08/30). She had a fever of 101.6 F at home and took a Tylenol before coming to the emergency room. Initial work up was notable for a leukocytosis of 14.9 k/mm3 and urinalysis was concerning for UTI. She received a dose of IV Ceftriaxone and IV Fluconazole following which admission was requested. She otherwise denies any other complains. Review of Systems 2 Review of Systems: Yes all other systems are reviewed and are negative [facility] Medical History Urinary tract infection Blurry vision, left eye Cervical spine pain Internal and external hemorrhoids without complication Hemorrhoids Renal calculi BMI 45.0-49.9, adult Thiamine deficiency Dyslipidemia GERD (gastroesophageal reflux disease) Hematuria Thickened endometrium Abnormal uterine bleeding (AUB) Pure hypercholesterolemia Insomnia Kidney stone Ectopic Family History Mother Osteoporosis Glaucoma Migraine Ovarian cancer Uterine cancer Sister Uterine cancer Maternal Grandfather Diabetes mellitus Paternal Grandmother Diabetes mellitus HTN (hypertension) Maternal Uncle Throat cancer Father HIV (human immunodeficiency virus infection) Sister Heart abnormality Sister Heart abnormality Epilepsy Brother No problems noted. Son No problems noted. Family/Other Substance use disorder Surgical History Hx of lithotripsy H/O laparoscopy Hx of section Hx of cholecystectomy Hx of laparoscopic gastric banding Social History Household Members: Children Housing: House Do you presently have visiting nurse or other home services: No Alcohol intake: never Patient Tobacco Use Status: Never used Tobacco Smoked in Last 30 Days: No e-Cigarette/Vaping Use: Never Used Second Hand Smoke Exposure: Yes Use of substances other than those prescribed or required for medical reasons: No Advance Directives: No Advance Directives Information Provided: No Patient : No service: No 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al status: employed 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al exposures/hazards: No Gender identity: Female Cognitive needs: No Hearing needs: No Vision needs: Yes (glasses) Meds Allergies Allergy/AdvReac Type Severity Reaction Status Date / Time pollard Allergy Intermediate Itching Verified 08/29/23 21:17 raspberry Allergy Intermediate Itching Verified 08/29/23 21:17 Home Medications Medication Instructions Recorded Confirmed Last Taken Type levonorgestrel 21 mcg/24 hours (8 intrauterine 05/17/22 08/01/23 Unknown History yrs) 52 mg intrauterine device (Mirena) omeprazole 40 mg capsule,delayed 40 mg PO DAILY PRN Acid Reflux 08/12/23 08/30/23 Unknown History release pyridoxine (vitamin B6) 100 mg 100 mg PO DAILY 08/12/23 08/30/23 Unknown History tablet amitriptyline 10 mg tablet 10 mg PO BEDTIME 08/30/23 08/30/23 Unknown History atorvastatin 20 mg tablet 20 mg PO DAILY 08/30/23 08/30/23 Unknown History metformin 500 mg tablet 500 mg PO BID 08/30/23 08/30/23 Unknown History pyridoxine (vitamin B6) 100 mg 100 mg PO DAILY 08/30/23 08/30/23 Unknown History tablet solifenacin 10 mg tablet 10 mg PO DAILY 08/30/23 08/30/23 Unknown History tramadol 50 mg tablet 50 - 100 mg PO Q4-6H PRN headache 08/30/23 08/30/23 Unknown History Physical Exam 2 Vital Signs and Narrative: Vital Signs: Last Vital Signs Temp 99.1 F 08/30/23 03:03 Pulse 89 08/30/23 03:03 Resp 16 08/30/23 03:03 BP 105/60 08/30/23 03:03 Pulse Ox 97 08/30/23 03:03 O2 Del Method Room Air 08/30/23 03:03 BMI result Body Mass Index 47.0 General: Well nourished. Awake, alert and oriented x 4. No apparent distress Eyes: No pallor or jaundice. PERRLA, EOMI HENT: Moist oral mucus membranes. No oropharyngeal lesions. Neck: Supple. No cervical adenopathy. No JVD Cardiovascular: Regular rate and rhythm. Normal heart sounds. No murmurs, rubs or gallops. No JVD. No peripheral edema. Respiratory: Normal respiratory effort with no accessory muscle use. CTAB. , CTA bilaterally Gastrointestinal: Abdomen is obese but soft, non-tender, non-distended. NABS. No hepatosplenomegaly Genitourinary: Positive for right flnak pain Extremities: No edema. No calf tenderness. Good peripheral pulses Skin: Warm/Dry. No rashes. No mottling. Capillary refill is < 2 seconds Neurological: AAOx4. Intact speech & cognition. Normal gait & balance. CN II - XII grossly intact but not individually tested. No motor or sensory deficits Hematologic: No bleeding. No ecchymosis. No swollen or tender lymph nodes. Psychiatric: Cooperative. Appropriate mood and affect. Results Labs 08/29/23 22:13 08/29/23 21:44 Labs: Laboratory Results - last 24 hr 08/29/23 08/29/23 08/30/23 21:44 22:13 00:08 MCV 88.6 MCH 29.2 MCHC 32.9 RDW 13.3 Plt Count 344 D MPV 10.1 Immature Gran % (Auto) 0.4 Neut % (Auto) 63.7 Lymph % (Auto) 24.5 [place] % (Auto) 10.4 Eos % (Auto) 0.7 Baso % (Auto) 0.3 Lymph # (Auto) 3.7 [place] # (Auto) 1.6 H Eos # (Auto) 0.1 Baso # (Auto) 0.1 Abs Immat Gran (auto) 0.06 H Absolute Neuts (auto) 9.5 H Absolute Nucleated RBC 0.000 Nucleated RBC % (auto) 0.0 Smear Tech's Comments VERIFIED Anion Gap 15 Estim Creat Clear Calc 76.9 Estimated GFR 51 Random Glucose 116 H Lactic Acid 1.1 Calcium 10.4 H D Total Bilirubin 1.1 H AST 56 H ALT 62 H Alkaline Phosphatase 138 H Total Protein 9.1 H Albumin 4.0 Lipase 21 Urine Color Dark Yellow Urine Appearance Clear Urine pH 6.0 Ur Specific [place] 1.015 Urine Protein 30 (1+) H Urine Glucose (UA) Negative Urine Ketones Negative Urine Blood Trace H Urine Nitrite Negative Ur Leukocyte Esterase Small (1+) H Urine RBC 3-5 H Urine WBC 6-10 H Ur Squamous Epith Cells 3-5 Urine Bacteria None Seen Hyaline Casts 0-2 Influenza Type A (PCR) NEGATIVE Influenza Type B (PCR) NEGATIVE RSV RNA Qual (PCR) NEGATIVE SARS-CoV-2 RNA (RT-PCR) NEGATIVE Imaging Radiologist's Impressions: Impressions Chest X-Ray 08/29/23 23:25 IMPRESSION: Unremarkable examination. Assessment and Plan (1) Sepsis: Qualifiers: Sepsis type: Jaja Sepsis acute organ dysfunction status: without acute organ dysfunction Qualified Code(s): B37.7 - Candidal sepsis; R65.20 - Severe sepsis without septic shock Status: Acute (2) UTI (urinary tract infection): Qualifiers: Urinary tract infection type: acute pyelonephritis Qualified Code(s): N 10 - Acute pyelonephritis Status: Acute (3) Candidemia: Status: Acute (4) Transaminitis: Status: Acute (5) Morbid obesity with BMI of 45.0-49.9, adult: Status: Acute Plan 47-year-old female with history of hyperlipidemia, enh-tdqaujw-yshznbffw type 2 diabetes, GERD, nephrolithiasis and recent admission (08/12/23 - 08/17/23) for obstructive uropathy with hydronephrosis s/p left cystoscopy with stent placement that was complicated by severe urosepsis, candidemia and acute renal failure here with 1. Sepsis - she returns reporting high fevers at home and is found with a leucocytosis of 4.9 k and UA concerning for a UTI - however, likely with persistent candidemia (previously grew Jaja lusitaniae) - she received a dose of Ceftriaxone and Fluconazole in the ED - admit and continue Ceftriaxone - hold Fluconazole and instead get ID input - consult Urology to remove indwelling ureteral stent 2. UTI - UA is concerning for UTI - treat with Ceftriaxone 3. Candidemia - previously grew Jaja lusitaniae from catheter tip - has completed 14 day course of oral Fluconazole - however she is still feeling unwell and running high fevers at home - consult ID for further input 4. Transaminitis - noted with mildly elevated AST and ALT from baseline - likely benign due to Fluconazole - monitor while off Fluconazole 5. Morbid obesity - BMI of 47 - encourage weight loss 6. T2DM - resume Metformin DVT: SC Lovenox CODE STATUS: Full code Admission for at least 2 midnights for management of urosepsis and potential persistent candidemia. Total time managing care of this patient today: 75 minutes. Quality Stroke Does the patient have a stroke diagnosis?: No VTE Prior VTE?: No VTE Risk Level:: Medical - moderate - high VTE Device Contraindication: N/A - Device Ordered VTE Drug Contraindication: N/A - Med Ordered
[2023-08-30] MEDS: Enoxaparin Sodium 40 MG/0.4 ML SYRINGE SUBCUT (06:50)
[2023-08-30] MEDS: 0.9 % Sodium Chloride Flush 3 ML SYRINGE IVFLUSH ×3 (08:18→20:01)
[2023-08-30] MEDS: Atorvastatin Calcium 20 MG TABLET PO (08:18)
[2023-08-30] MEDS: Docusate Sodium 100 MG CAPSULE PO ×2 (08:18→20:00)
[2023-08-30] MEDS: metFORMIN HCl 500 MG TABLET PO ×2 (08:18→20:01)
[2023-08-30 08:22] VITALS: BP 102/69; PULSE 94; RESP 16; TEMP 37; O2SAT 96
--- NOTE | 2023-08-30 08:55 | PHA.MEDREC ---
Pharmacy Consult ? Medication Reconciliation Pharmacy has completed the medication reconciliation. spoke with patient through grants analyst to confirm medications. [facility] is saying patient picked up solifenacin in July however patient it reporting that she never started it and it's still at the pharmacy. aware.
[2023-08-30 09:07] VITALS: BP 115/78; PULSE 99; RESP 20; TEMP 36.9; O2SAT 98
[2023-08-30] MEDS: Tolterodine Tartrate LA 4 MG CAP.ER.24H PO (09:48)
--- NOTE | 2023-08-30 09:50 | PM.EVENT ---
Event Note Date of Service: 08/30/23 Event Note: Patient seen and evaluated this morning feels better overall No fever overnight To continue antibiotics and antifungal pending ID Evaluation Urology to follow for further eval Time Spent With Patient Time: Total time managing care of this patient today ____ minutes.
[2023-08-30] MEDS: ondansetron HCL 4 MG/2 ML VIAL IVPUSH (11:43)
--- NOTE | 2023-08-30 11:59 | MHC.CM.PN ---
pt is indepedent lives with her son ..her car in parking lot dc plan home no servies
[2023-08-30 15:01] VITALS: BP 102/61; PULSE 80; RESP 16; TEMP 36.7; O2SAT 96
[2023-08-30 19:07] VITALS: BP 115/72; PULSE 78; RESP 18; TEMP 37; O2SAT 98
[2023-08-30] MEDS: Amitriptyline HCl 10 MG TABLET PO (20:00)
[2023-08-30] MEDS: Acetaminophen 325 MG TABLET 650 MG PO (20:04)
--- NOTE | 2023-08-31 00:32 | P.CNID_ITS ---
History of Present Illness Data of Consult Service Date: 08/30/23 Requesting physician: Bonilla Winkler Primary Care Provider: Milly Prince MD HPI Reason for consult: possible infection She reports fever at home last day. She has tachycardia and leukocytosis on admission. She has recent del lusitanae bacteremia sensitive to diflucan and was discharged on this. She has no fever in house. She has had renal colic concern over fungus in bladder. Review of Systems 2 Review of Systems: Yes all other systems are reviewed and are negative [facility] Past Medical History Medical History Urinary tract infection Blurry vision, left eye Cervical spine pain Internal and external hemorrhoids without complication Hemorrhoids Renal calculi BMI 45.0-49.9, adult Thiamine deficiency Dyslipidemia GERD (gastroesophageal reflux disease) Hematuria Thickened endometrium Abnormal uterine bleeding (AUB) Pure hypercholesterolemia Insomnia Kidney stone Ectopic Family History Family History Mother Osteoporosis Glaucoma Migraine Ovarian cancer Uterine cancer Sister Uterine cancer Maternal Grandfather Diabetes mellitus Paternal Grandmother Diabetes mellitus HTN (hypertension) Maternal Uncle Throat cancer Father HIV (human immunodeficiency virus infection) Sister Heart abnormality Sister Heart abnormality Epilepsy Brother No problems noted. Son No problems noted. Family/Other Substance use disorder Family history: reviewed and not pertinent Surgical History Surgical History Hx of lithotripsy H/O laparoscopy Hx of section Hx of cholecystectomy Hx of laparoscopic gastric banding Social History Social History Household Members: Children Housing: Apartment Do you presently have visiting nurse or other home services: No Alcohol intake: never Patient Tobacco Use Status: Never used Tobacco e-Cigarette/Vaping Use: Never Used Second Hand Smoke Exposure: Yes service: No 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al status: employed 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al exposures/hazards: No Gender identity: Female Cognitive needs: No Hearing needs: No Vision needs: Yes (glasses) Meds Allergies Allergy/AdvReac Type Severity Reaction Status Date / Time pollard Allergy Intermediate Itching Verified 08/29/23 21:17 raspberry Allergy Intermediate Itching Verified 08/29/23 21:17 Active Medications: Current Medications Acetaminophen (Acetaminophen 325 Mg Tablet) 650 mg PO Q6H PRN PRN Reason: Pain, Mild (Pain Scale 1-3) Last Admin: 08/30/23 20:04 Dose: 650 mg Al Hydroxide/Mg Hydroxide (Magnesium Hydrox/Alum Hydrox 30 Ml Oral.Susp) 30 ml PO Q4H PRN PRN Reason: Heartburn/Nausea Amitriptyline HCl (Amitriptyline Hcl 10 Mg Tablet) 10 mg PO BEDTIME [facility] Last Admin: 08/30/23 20:00 Dose: 10 mg Atorvastatin Calcium (Atorvastatin Calcium 20 Mg Tablet) 20 mg PO DAILY [facility] Last Admin: 08/30/23 08:18 Dose: 20 mg Docusate Sodium (Docusate Sodium 100 Mg Capsule) 100 mg PO BID [facility] Last Admin: 08/30/23 20:00 Dose: 100 mg Enoxaparin Sodium (Enoxaparin Sodium 40 Mg/0.4 Ml Syringe) 40 mg SUBCUT Q24H [facility] Last Admin: 08/30/23 06:50 Dose: 40 mg Fluconazole (Fluconazole 100 Mg Tablet) 400 mg PO BEDTIME [facility] Ceftriaxone Sodium 1 gm/ (Sodium Chloride) 50 mls @ 100 mls/hr IV Q24H [facility] Last Infusion: 08/30/23 08:51 Dose: Infused Melatonin (Melatonin 3 Mg Tablet) 6 mg PO BEDTIME PRN PRN Reason: Insomnia Metformin HCl (Metformin Hcl 500 Mg Tablet) 500 mg PO BID [facility] Last Admin: 08/30/23 20:01 Dose: 500 mg Morphine Sulfate (Morphine Sulfate 4 Mg/Ml Cartridge) 2 mg IVPUSH Q4H PRN; Protocol PRN Reason: Pain, Severe (Pain Scale 7-10) Omeprazole (Omeprazole 40 Mg Capsule.Dr) 40 mg PO DAILY PRN PRN Reason: Acid Reflux Ondansetron HCl (Ondansetron Hcl 4 Mg/2 Ml Vial) 4 mg IVPUSH Q8H PRN PRN Reason: Nausea and Vomiting Last Admin: 08/30/23 11:43 Dose: 4 mg Oxycodone HCl (Oxycodone Hcl Immed Release 5 Mg Tablet) 5 mg PO Q6H PRN PRN Reason: Pain, Moderate(Pain Scale 4-6) Sodium Chloride (0.9 % Sodium Chloride Flush 3 Ml Syringe) 3 ml IVFLUSH QSHIFT [facility] Last Admin: 08/30/23 20:01 Dose: 3 ml Tolterodine Tartrate (Tolterodine Tartrate [place] 4 Mg Cap.Er.24h) 4 mg PO DAILY [facility] Last Admin: 08/30/23 09:48 Dose: 4 mg Tramadol HCl (Tramadol Hcl 50 Mg Tablet) 100 mg PO Q6H PRN PRN Reason: Pain, Severe (Pain Scale 7-10) Home Medications Medication Instructions Recorded Confirmed Last Taken Type levonorgestrel 21 mcg/24 hours (8 1 device intrauterine CONT 05/17/22 08/30/23 Unknown History yrs) 52 mg intrauterine device (Mirena) omeprazole 40 mg capsule,delayed 40 mg PO DAILY PRN Acid Reflux 08/12/23 08/30/23 Unknown History release pyridoxine (vitamin B6) 100 mg 100 mg PO DAILY 08/12/23 08/30/23 Unknown History tablet amitriptyline 10 mg tablet 10 mg PO BEDTIME 08/30/23 08/30/23 Unknown History metformin 500 mg tablet 500 mg PO BID 08/30/23 08/30/23 Unknown History solifenacin 10 mg tablet 10 mg PO DAILY 08/30/23 08/30/23 Unknown History Physical Exam 2 Vital Signs: Vital Signs: Last Vital Signs Temp 98.6 F 08/30/23 19:07 Pulse 78 08/30/23 19:07 Resp 18 08/30/23 19:07 BP 115/72 08/30/23 19:07 Pulse Ox 98 08/30/23 19:07 O2 Del Method Room Air 08/30/23 19:07 BMI result Body Mass Index 47.0 Const: General: cooperative HEENT: Head: Yes normal to inspection Face and sinus: Yes normal facial exam Mouth: Normal oral and palatal mucosa present Teeth and gingiva: d entition normal Eyes: General: appearance normal, both eyes and all related structures P upils: Equal, round and reactive pupils present Resp: Effort & Inspection: normal respiratory effort Cardio: Rate: regular rate Rhythm: regular rhythm GI: Palpation (GI): Soft to palpation and nontender : General: Yes no CVA tenderness Back/Spine/Pelvis: Back: no CVA tenderness Skin: General skin exam: no rashes or lesions noted Neuro: General: moves all extremities Cranial nerves: Yes Equal, round and reactive pupils present Extrem: General: Yes normal to inspection Psych: Appearance: grossly normal Results Labs 08/29/23 22:13 08/29/23 21:44 Microbiology Microbiology Results: Microbiology 08/29/23 21:41 Urine clean catch - Clean Catch Midstream Urine Culture - Preliminary No growth to date. Assessment and Plan (1) Dizziness: Status: Acute She has had fungemia and was discharged recently on Diflucan which should have worked for C lusitanae. Possibly she has intolerance to Diflucan and fever due to this If del bacteremia reappears needs further urologic investigation for stones and possible LP Continue Ceftriaxone and Diflucan for now and if nothing else found check eye exam for endopthalmitis outpatient and stop Diflucan after 14-21 days. (2) Nausea: Status: Acute (3) Worsening headaches: Status: Acute
[2023-08-31 03:51] VITALS: BP 118/68; PULSE 74; RESP 18; TEMP 36.2; O2SAT 98
[2023-08-31 06:02] LABS: MANUAL DIFF FLAG NO
[2023-08-31 06:18] LABS: Basophils Absolute Auto 0.1 X10*3/uL (0.0-0.2); Basophils Percent Auto 0.5 % (0-2); Eosinophils Absolute Auto 0.2 X10*3/uL (0.0-0.4); Eosinophils Percent Auto 1.8 % (0-4); Hematocrit 41.3 % (37.0-47.0); Hemoglobin 13.2 g/dl (12.0-16.0); Imm Gran Abs Auto 0.04 X10*3/uL (0.00-0.03); Imm Gran Pct Auto 0.4 % (0.0-0.4); Lymphocytes Absolute Auto 3.3 X10*3/uL (1.2-4.9); Lymphocytes Percent Auto 35.7 % (20-40); Mean Corpuscular Hemoglobin 29.3 pg (27.0-33.0); Mean Corpuscular Volume 91.6 fL (80.0-98.0); Monocytes Absolute Auto 0.9 X10*3/uL (0.1-1.2); Monocytes Percent Auto 9.3 % (2-11); Neutrophils Absolute Auto 4.8 x10*3/uL (2.0-8.3); Neutrophils Percent Auto 52.3 % (45-73); Platelet Count 299 X10*3/uL (160-400); Red Blood Count 4.51 X10*6/uL (4.20-5.50); Red Cell Distribution Width 13.3 % (11.0-16.0); White Blood Count 9.3 X10*3/uL (4.8-10.8)
[2023-08-31 06:24] LABS: Anion Gap 14 (12-20); Blood Urea Nitrogen 11 mg/dL (9-16); Calcium 9.7 mg/dL (8.4-10.2); Carbon Dioxide 24 mmol/L (22-29); Chloride 108 mmol/L (96-108); Estimated Glomerular Filt Rate 57; Glucose Random 117 mg/dL (60-115); Potassium 3.8 mmol/L (3.3-5.1); Sodium 142 mmol/L (135-145)
[2023-08-31] MEDS: Enoxaparin Sodium 40 MG/0.4 ML SYRINGE SUBCUT (06:39)
[2023-08-31] MEDS: cefTRIAXone sodium 1 GM in 0.9 % Sodium Chloride 50 ML IV (06:41)
[2023-08-31 07:28] VITALS: BP 104/57; PULSE 77; RESP 16; TEMP 36.1; O2SAT 97
[2023-08-31] MEDS: Atorvastatin Calcium 20 MG TABLET PO (08:14)
[2023-08-31] MEDS: Tolterodine Tartrate LA 4 MG CAP.ER.24H PO (08:14)
[2023-08-31] MEDS: metFORMIN HCl 500 MG TABLET PO (08:14)
[2023-08-31] MEDS: Docusate Sodium 100 MG CAPSULE PO ×2 (08:14→19:58)
--- NOTE | 2023-08-31 08:27 | PM.UROCN ---
History of Present Illness Consult details Consult date: 08/31/23 Narrative: 47-year-old female with history of hyperlipidemia, [id number] type 2 diabetes, GERD, nephrolithiasis and recent admission (08/12/23 - 08/17/23) for obstructive uropathy with hydronephrosis s/p left cystoscopy with stent placement. The patient developed urosepsis, candidemia and acute renal failure; She was started on Fluconazole 400mg daily for the candidemia and has taken it for 2 weeks (08/16 - 08/30). She was seen in the ED and admitted due to complaints of over the last 3 days with intermittent fevers (TMax of 102.1)at home with chills, headaches and generalized fatigue. She had a fever of 101.6 F at home and took a Tylenol before coming to the emergency room. Initial work up was notable for a leukocytosis of 14.9 k/mm3 and urinalysis was concerning for UTI. She received a dose of IV Ceftriaxone and IV Fluconazole. Review of Systems Review of Systems: Yes all other systems are reviewed and are negative Constitutional: Constitutional: Reports no additional constitutional complaints Eyes: Eyes: Reports no additional eye complaints ENT: Reports system reviewed and no additional complaints, except as documented Cardiovascular: Cardiovascular: Denies dyspnea Respiratory: Respiratory: Denies cough and Denies dyspnea Gastrointestinal: Gastrointestinal: Reports no additional gastrointestinal complaints Genitourinary: Genitourinary: Reports no additional female genitourinary complaints Musculoskeletal: Musculoskeletal: Reports no additional musculoskeletal complaints Integumentary/Breasts: Skin/Breast: Denies rash and Denies unusual bruising Neurologic: Reports system reviewed and no additional complaints, except as documented Psychiatric: Psychiatric: Reports no additional psychiatric complaints Endocrine: Endocrine: Reports no additional endocrine complaints Hematologic/Lymphatic: Hematologic/Lymphatic: Reports no additional hematologic/lymphatic complaints Allergic/Immunologic: Allergic/Immunologic: Reports no additional allergic/immunologic complaints [facility]LY [facility] Past Medical History Medical History Urinary tract infection Blurry vision, left eye Cervical spine pain Internal and external hemorrhoids without complication Hemorrhoids Renal calculi BMI 45.0-49.9, adult Thiamine deficiency Dyslipidemia GERD (gastroesophageal reflux disease) Hematuria Thickened endometrium Abnormal uterine bleeding (AUB) Pure hypercholesterolemia Insomnia Kidney stone Ectopic Family History Family History Mother Osteoporosis Glaucoma Migraine Ovarian cancer Uterine cancer Sister Uterine cancer Maternal Grandfather Diabetes mellitus Paternal Grandmother Diabetes mellitus HTN (hypertension) Maternal Uncle Throat cancer Father HIV (human immunodeficiency virus infection) Sister Heart abnormality Sister Heart abnormality Epilepsy Brother No problems noted. Son No problems noted. Family/Other Substance use disorder Family history: reviewed and not pertinent Surgical History Surgical History Hx of lithotripsy H/O laparoscopy Hx of section Hx of cholecystectomy Hx of laparoscopic gastric banding Social History Social History Household Members: Children Housing: Apartment Do you presently have visiting nurse or other home services: No Alcohol intake: never Patient Tobacco Use Status: Never used Tobacco e-Cigarette/Vaping Use: Never Used Second Hand Smoke Exposure: Yes service: No 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al status: employed 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al exposures/hazards: No Gender identity: Female Cognitive needs: No Hearing needs: No Vision needs: Yes (glasses) Meds Allergies Allergy/AdvReac Type Severity Reaction Status Date / Time pollard Allergy Intermediate Itching Verified 08/29/23 21:17 raspberry Allergy Intermediate Itching Verified 08/29/23 21:17 Active Medications: Current Medications Acetaminophen (Acetaminophen 325 Mg Tablet) 650 mg PO Q6H PRN PRN Reason: Pain, Mild (Pain Scale 1-3) Last Admin: 08/30/23 20:04 Dose: 650 mg Al Hydroxide/Mg Hydroxide (Magnesium Hydrox/Alum Hydrox 30 Ml Oral.Susp) 30 ml PO Q4H PRN PRN Reason: Heartburn/Nausea Amitriptyline HCl (Amitriptyline Hcl 10 Mg Tablet) 10 mg PO BEDTIME [facility] Last Admin: 08/30/23 20:00 Dose: 10 mg Atorvastatin Calcium (Atorvastatin Calcium 20 Mg Tablet) 20 mg PO DAILY [facility] Last Admin: 08/31/23 08:14 Dose: 20 mg Docusate Sodium (Docusate Sodium 100 Mg Capsule) 100 mg PO BID [facility] Last Admin: 08/31/23 08:14 Dose: 100 mg Enoxaparin Sodium (Enoxaparin Sodium 40 Mg/0.4 Ml Syringe) 40 mg SUBCUT Q24H [facility] Last Admin: 08/31/23 06:39 Dose: 40 mg Fluconazole (Fluconazole 100 Mg Tablet) 400 mg PO BEDTIME [facility] Ceftriaxone Sodium 1 gm/ (Sodium Chloride) 50 mls @ 100 mls/hr IV Q24H [facility] Last Infusion: 08/31/23 07:59 Dose: Infused Melatonin (Melatonin 3 Mg Tablet) 6 mg PO BEDTIME PRN PRN Reason: Insomnia Metformin HCl (Metformin Hcl 500 Mg Tablet) 500 mg PO BID [facility] Last Admin: 08/31/23 08:14 Dose: 500 mg Morphine Sulfate (Morphine Sulfate 4 Mg/Ml Cartridge) 2 mg IVPUSH Q4H PRN; Protocol PRN Reason: Pain, Severe (Pain Scale 7-10) Omeprazole (Omeprazole 40 Mg Capsule.Dr) 40 mg PO DAILY PRN PRN Reason: Acid Reflux Ondansetron HCl (Ondansetron Hcl 4 Mg/2 Ml Vial) 4 mg IVPUSH Q8H PRN PRN Reason: Nausea and Vomiting Last Admin: 08/30/23 11:43 Dose: 4 mg Oxycodone HCl (Oxycodone Hcl Immed Release 5 Mg Tablet) 5 mg PO Q6H PRN PRN Reason: Pain, Moderate(Pain Scale 4-6) Sodium Chloride (0.9 % Sodium Chloride Flush 3 Ml Syringe) 3 ml IVFLUSH QSHIFT [facility] Last Admin: 08/31/23 07:00 Dose: Not Given Tolterodine Tartrate (Tolterodine Tartrate La 4 Mg Cap.Er.24h) 4 mg PO DAILY [facility] Last Admin: 08/31/23 08:14 Dose: 4 mg Tramadol HCl (Tramadol Hcl 50 Mg Tablet) 100 mg PO Q6H PRN PRN Reason: Pain, Severe (Pain Scale 7-10) Home Medications Medication Instructions Recorded Confirmed Last Taken Type levonorgestrel 21 mcg/24 hours (8 1 device intrauterine CONT 05/17/22 08/30/23 Unknown History yrs) 52 mg intrauterine device (Mirena) omeprazole 40 mg capsule,delayed 40 mg PO DAILY PRN Acid Reflux 08/12/23 08/30/23 Unknown History release pyridoxine (vitamin B6) 100 mg 100 mg PO DAILY 08/12/23 08/30/23 Unknown History tablet amitriptyline 10 mg tablet 10 mg PO BEDTIME 08/30/23 08/30/23 Unknown History metformin 500 mg tablet 500 mg PO BID 08/30/23 08/30/23 Unknown History solifenacin 10 mg tablet 10 mg PO DAILY 08/30/23 08/30/23 Unknown History Physical Exam Vital Signs: Vital Signs: Last Vital Signs Temp 96.9 F 08/31/23 07:28 Pulse 77 08/31/23 07:28 Resp 16 08/31/23 07:28 BP 104/57 L 08/31/23 07:28 Pulse Ox 97 08/31/23 07:28 O2 Del Method Room Air 08/31/23 07:28 BMI result Body Mass Index 47.0 Const: General: cooperative, healthy appearing and no acute distress Orientation/consciousness: patient oriented x3 HEENT: Head: Yes normal to inspection, Yes normocephalic and Yes atraumatic Eyes: Conjunctivae: conjunctivae normal Neck: Neck: Yes normal visual inspection and Yes trachea midline Chest: Chest palpation & inspection: normal inspection of the chest Resp: Effort & Inspection: normal respiratory effort Cardio: Rate: regular rate GI: Inspection: Yes normal to inspection Palpation (GI): Soft to palpation Skin: General skin exam: no rashes or lesions noted Neuro: General: patient oriented x3 Extrem: General: No edema Psych: Appearance: grossly normal Results Labs 08/31/23 05:39 09/01/23 05:32 Labs: Abnormal lab results 08/31/23 Range/Units 05:39 Abs Immat Gran (auto) 0.04 H (0.00-0.03) X10*3/uL Random Glucose 117 H (60-115) mg/dL Short CBC 08/31/23 Range/Units 05:39 WBC 9.3 (4.8-10.8) X10*3/uL Hgb 13.2 (12.0-16.0) g/dl Hct 41.3 (37.0-47.0) % Plt Count 299 (160-400) X10*3/uL BMP 08/31/23 05:39 Sodium 142 Potassium 3.8 Chloride 108 Carbon Dioxide 24 BUN 11 Creatinine 1.05 Calcium 9.7 D Urine 08/29/23 Range/Units 21:44 Urine Color Dark Yellow Urine Appearance Clear Urine pH 6.0 (5.0-9.0) Ur Specific [place] 1.015 (1.005-1.025) Urine Protein 30 (1+) H (Neg-Trace) mg/dL Urine Glucose (UA) Negative (Negative) mg/dL All other labs normal. Assessment and Plan (1) Morbid obesity with BMI of 45.0-49.9, adult: Status: Acute (2) Fungemia: Status: Acute (3) Ureteral stent present: Status: Acute (4) Nephrolithiasis: Status: Acute Plan Clinically improving I want to review imaging to see if any stones are along the stent CTAP stone protocol today Procedures Date of Service Date of Service: 09/01/23
--- NOTE | 2023-08-31 08:51 | PC.NURSE ---
CT consent signed and faxed to department, paper copy in physical chart.
[2023-08-31 09:17] LABS: Glucose, Whole Blood 164 mg/dL (60-115)
--- NOTE | 2023-08-31 09:56 | P.PNIM_ITS ---
Subjective Subjective Date of Service: 08/31/23 Interval History: Seen and evaluated this morning feels better, reporting chills but no fever no fever last 24 hours cultures pending Review of Systems Review of Systems: Yes all other systems are reviewed and are negative Physical Exam 2 Vital Signs: Vital Signs: Last Vital Signs Temp 96.9 F 08/31/23 07:28 Pulse 77 08/31/23 07:28 Resp 16 08/31/23 07:28 BP 104/57 L 08/31/23 07:28 Pulse Ox 97 08/31/23 07:28 O2 Del Method Room Air 08/31/23 07:28 BMI result Body Mass Index 47.0 Const: Other: Constitutional : Awake, interactive, not in distress Neck : Normal inspection, Supple Cardiovascular : RRR, no JVP, no lower extremity edema Respiratory : good bilateral air entry, no crackles, wheezes or rhonchi Gastrointestinal: soft, lax, Normal bowel sounds, Non tender Skin : Warm, Dry Neurological : Alert & oriented x3, No focal deficit Objective Data Active Medications Acetaminophen (Acetaminophen 325 Mg Tablet) 650 mg PO Q6H PRN PRN Reason: Pain, Mild (Pain Scale 1-3) Last Admin: 08/30/23 20:04 Dose: 650 mg Documented By: MAHSA Al Hydroxide/Mg Hydroxide (Magnesium Hydrox/Alum Hydrox 30 Ml Oral.Susp) 30 ml PO Q4H PRN PRN Reason: Heartburn/Nausea Amitriptyline HCl (Amitriptyline Hcl 10 Mg Tablet) 10 mg PO BEDTIME [facility] Last Admin: 08/30/23 20:00 Dose: 10 mg Documented By: MAHSA Atorvastatin Calcium (Atorvastatin Calcium 20 Mg Tablet) 20 mg PO DAILY [facility] Last Admin: 08/31/23 08:14 Dose: 20 mg Documented By: CARIE Docusate Sodium (Docusate Sodium 100 Mg Capsule) 100 mg PO BID [facility] Last Admin: 08/31/23 08:14 Dose: 100 mg Documented By: CAIRE Enoxaparin Sodium (Enoxaparin Sodium 40 Mg/0.4 Ml Syringe) 40 mg SUBCUT Q24H [facility] Last Admin: 08/31/23 06:39 Dose: 40 mg Documented By: AMY Fluconazole (Fluconazole 100 Mg Tablet) 400 mg PO BEDTIME [facility] Ceftriaxone Sodium 1 gm/ (Sodium Chloride) 50 mls @ 100 mls/hr IV Q24H [facility] Last Infusion: 08/31/23 07:59 Dose: Infused Documented By: CARIE Melatonin (Melatonin 3 Mg Tablet) 6 mg PO BEDTIME PRN PRN Reason: Insomnia Metformin HCl (Metformin Hcl 500 Mg Tablet) 500 mg PO BID [facility] Last Admin: 08/31/23 08:14 Dose: 500 mg Documented By: CARIE Morphine Sulfate (Morphine Sulfate 4 Mg/Ml Cartridge) 2 mg IVPUSH Q4H PRN; Protocol PRN Reason: Pain, Severe (Pain Scale 7-10) Omeprazole (Omeprazole 40 Mg Capsule.Dr) 40 mg PO DAILY PRN PRN Reason: Acid Reflux Ondansetron HCl (Ondansetron Hcl 4 Mg/2 Ml Vial) 4 mg IVPUSH Q8H PRN PRN Reason: Nausea and Vomiting Last Admin: 08/30/23 11:43 Dose: 4 mg Documented By: LARERASMO Oxycodone HCl (Oxycodone Hcl Immed Release 5 Mg Tablet) 5 mg PO Q6H PRN PRN Reason: Pain, Moderate(Pain Scale 4-6) Sodium Chloride (0.9 % Sodium Chloride Flush 3 Ml Syringe) 3 ml IVFLUSH QSHIFT [facility] Last Admin: 08/31/23 07:00 Dose: Not Given Documented By: CARIE Non-Admin Reason: IV Running Tolterodine Tartrate (Tolterodine Tartrate La 4 Mg Cap.Er.24h) 4 mg PO DAILY [facility] Last Admin: 08/31/23 08:14 Dose: 4 mg Documented By: CARIE Tramadol HCl (Tramadol Hcl 50 Mg Tablet) 100 mg PO Q6H PRN PRN Reason: Pain, Severe (Pain Scale 7-10) Labs 08/31/23 05:39 08/31/23 05:39 Labs: Laboratory Results - last 24 hr 08/31/23 08/31/23 05:39 09:12 MCV 91.6 MCH 29.3 MCHC 32.0 RDW 13.3 Plt Count 299 MPV 11.0 Immature Gran % (Auto) 0.4 Neut % (Auto) 52.3 Lymph % (Auto) 35.7 [place] % (Auto) 9.3 Eos % (Auto) 1.8 Baso % (Auto) 0.5 Lymph # (Auto) 3.3 [place] # (Auto) 0.9 Eos # (Auto) 0.2 Baso # (Auto) 0.1 Abs Immat Gran (auto) 0.04 H Absolute Neuts (auto) 4.8 Absolute Nucleated RBC 0.000 Nucleated RBC % (auto) 0.0 Anion Gap 14 Estim Creat Clear Calc 85.0 Estimated GFR 57 POC Glucose 164 H Random Glucose 117 H Calcium 9.7 D Microbiology Microbiology Results: Microbiology 08/30/23 00:44 Blood Culture - Preliminary Blood - Venous No growth after 24 hours. 08/30/23 00:08 Blood Culture - Preliminary Blood - Venous No growth after 24 hours. 08/29/23 21:41 Urine Culture - Preliminary Urine clean catch - Clean Catch Midstream No growth to date. Assessment and Plan (1) Nephrolithiasis: Status: Acute (2) Sepsis: Status: Acute (3) UTI (urinary tract infection): Status: Acute Plan 47-year-old female with history of hyperlipidemia, hyj-lzhltjw-[id number] type 2 diabetes, GERD, nephrolithiasis and recent admission (08/12/23 - 08/17/23) for obstructive uropathy with hydronephrosis s/p left cystoscopy with stent placement that was complicated by severe urosepsis, candidemia and acute renal failure here with # Sepsis 2/2 likely UTI UTI vs persistent candidemia (previously grew Jaja lusitaniae) Pending cultures Continue Ceftriaxone Continue Fluconazole ID input appreciated, Fluconazole and Ceftriaxone until final cultures if Cx negative : check eye exam for endopthalmitis outpatient and stop Diflucan after 14-21 days. Urology to do CTA stone protocol to decide if we need to remove the ureteral stent # UTI Ceftriaxone pending final cultures # Hx of Candidemia previously grew Jaja lusitaniae from catheter tip and completed 14 day course of oral Fluconazole on fluconazole pending cultures now # Transaminitis mildly elevated AST and ALT from baseline benign due to Fluconazole # Morbid obesity BMI of 47 encourage weight loss # T2DM resume Metformin DVT: SC Lovenox CODE STATUS: Full code Admission for overnight for management of urosepsis and potential persistent candidemia. Quality Stroke Does the patient have a stroke diagnosis?: No VTE Prior VTE?: No VTE Risk Level:: Medical - moderate - high VTE Device Contraindication: N/A - Device Ordered VTE Drug Contraindication: N/A - Med Ordered
[2023-08-31 11:27] LABS: Glucose, Whole Blood 145 mg/dL (60-115)
[2023-08-31] MEDS: iohexoL 350 MG/ML 100 ML INFUS..BTL IV (12:01)
[2023-08-31] MEDS: 0.9 % Sodium Chloride Flush 3 ML SYRINGE IVFLUSH ×2 (15:04→20:00)
[2023-08-31 15:14] VITALS: BP 108/69; PULSE 82; RESP 18; TEMP 36; O2SAT 95
[2023-08-31 16:19] LABS: Glucose, Whole Blood 99 mg/dL (60-115)
[2023-08-31 19:30] VITALS: BP 112/72; PULSE 71; RESP 18; TEMP 36.1; O2SAT 95
[2023-08-31 19:43] LABS: Glucose, Whole Blood 113 mg/dL (60-115)
[2023-08-31] MEDS: Amitriptyline HCl 10 MG TABLET PO (19:58)
[2023-08-31] MEDS: Fluconazole 100 MG TABLET 400 MG PO (20:00)
[2023-08-31] MEDS: Acetaminophen 325 MG TABLET 650 MG PO (22:22)
[2023-09-01 01:25] LABS: Glucose, Whole Blood 118 mg/dL (60-115)
[2023-09-01 04:00] VITALS: BP 120/75; PULSE 78; RESP 16; TEMP 36.5; O2SAT 97
[2023-09-01] MEDS: cefTRIAXone sodium 1 GM in 0.9 % Sodium Chloride 50 ML IV (06:01)
[2023-09-01] MEDS: Enoxaparin Sodium 40 MG/0.4 ML SYRINGE SUBCUT (06:02)
[2023-09-01 07:00] LABS: Alanine Aminotransferase 40 U/L (0-31); Albumin Level 3.4 g/dL (3.5-5.0); Alkaline Phosphatase 121 U/L (39-117); Anion Gap 13 (12-20); Aspartate Amino Transferase 29 U/L (5-31); Bilirubin Direct 0.2 mg/dL (0.0-0.5); Bilirubin Total 0.3 mg/dL (0.0-1.0); Blood Urea Nitrogen 10 mg/dL (9-16); Calcium 9.6 mg/dL (8.4-10.2); Carbon Dioxide 24 mmol/L (22-29); Chloride 106 mmol/L (96-108); Creatinine Clr Calc Pharmacy 87.5; Estimated Glomerular Filt Rate 59; Glucose Random 97 mg/dL (60-115); Potassium 3.6 mmol/L (3.3-5.1); Sodium 139 mmol/L (135-145); Total Protein 7.7 g/dL (6.5-8.0)
[2023-09-01 07:15] VITALS: BP 106/61; PULSE 62; RESP 16; TEMP 36.1; O2SAT 98
[2023-09-01 07:28] LABS: Glucose, Whole Blood 108 mg/dL (60-115)
[2023-09-01] MEDS: 0.9 % Sodium Chloride Flush 3 ML SYRINGE IVFLUSH ×3 (08:00→21:13)
[2023-09-01] MEDS: Docusate Sodium 100 MG CAPSULE PO ×2 (08:01→21:12)
[2023-09-01] MEDS: Tolterodine Tartrate LA 4 MG CAP.ER.24H PO (08:01)
[2023-09-01] MEDS: Atorvastatin Calcium 20 MG TABLET PO (08:01)
--- NOTE | 2023-09-01 08:20 | PC.NURSE ---
NPO per MD, pt made aware, pt states understanding.
--- NOTE | 2023-09-01 08:57 | PC.NURSE ---
Swab and stent sent to lab per MD request.
--- NOTE | 2023-09-01 11:02 | P.PNIM_ITS ---
Subjective Subjective Date of Service: 09/01/23 Interval History: Seen and evaluated this morning feels better overall bedside stent removal URine cx growing staph species no fever last 24 hours blood cultures pending Review of Systems Review of Systems: Yes all other systems are reviewed and are negative Physical Exam 2 Vital Signs: Vital Signs: Last Vital Signs Temp 96.9 F 09/01/23 07:15 Pulse 62 09/01/23 07:15 Resp 16 09/01/23 07:15 BP 106/61 09/01/23 07:15 Pulse Ox 98 09/01/23 07:15 O2 Del Method Room Air 09/01/23 07:15 BMI result Body Mass Index 47.0 Const: Other: Constitutional : Awake, interactive, not in distress Neck : Normal inspection, Supple Cardiovascular : RRR, no JVP, no lower extremity edema Respiratory : good bilateral air entry, no crackles, wheezes or rhonchi Gastrointestinal: soft, lax, Normal bowel sounds, Non tender Skin : Warm, Dry Neurological : Alert & oriented x3, No focal deficit Objective Data Active Medications Acetaminophen (Acetaminophen 325 Mg Tablet) 650 mg PO Q6H PRN PRN Reason: Pain, Mild (Pain Scale 1-3) Last Admin: 08/31/23 22:22 Dose: 650 mg Documented By: MAHSA Al Hydroxide/Mg Hydroxide (Magnesium Hydrox/Alum Hydrox 30 Ml Oral.Susp) 30 ml PO Q4H PRN PRN Reason: Heartburn/Nausea Amitriptyline HCl (Amitriptyline Hcl 10 Mg Tablet) 10 mg PO BEDTIME [facility] Last Admin: 08/31/23 19:58 Dose: 10 mg Documented By: MAHSA Atorvastatin Calcium (Atorvastatin Calcium 20 Mg Tablet) 20 mg PO DAILY [facility] [place] Last Admin: 09/01/23 08:01 Dose: 20 mg Documented By: CARIE Docusate Sodium (Docusate Sodium 100 Mg Capsule) 100 mg PO BID [facility] [place] Last Admin: 09/01/23 08:01 Dose: 100 mg Documented By: CARIE Enoxaparin Sodium (Enoxaparin Sodium 40 Mg/0.4 Ml Syringe) 40 mg SUBCUT Q24H [facility] [place] Last Admin: 09/01/23 06:02 Dose: 40 mg Documented By: MAHSA Fluconazole (Fluconazole 100 Mg Tablet) 400 mg PO BEDTIME [facility] [place] Last Admin: 08/31/23 20:00 Dose: 400 mg Documented By: MAHSA Ceftriaxone Sodium 1 gm/ (Sodium Chloride) 50 mls @ 100 mls/hr IV Q24H [facility] [place] Last Infusion: 09/01/23 06:33 Dose: Infused Documented By: MAHSA Melatonin (Melatonin 3 Mg Tablet) 6 mg PO BEDTIME PRN PRN Reason: Insomnia Morphine Sulfate (Morphine Sulfate 4 Mg/Ml Cartridge) 2 mg IVPUSH Q4H PRN; Protocol PRN Reason: Pain, Severe (Pain Scale 7-10) Omeprazole (Omeprazole 40 Mg Capsule.Dr) 40 mg PO DAILY PRN PRN Reason: Acid Reflux Ondansetron HCl (Ondansetron Hcl 4 Mg/2 Ml Vial) 4 mg IVPUSH Q8H PRN PRN Reason: Nausea and Vomiting Last Admin: 08/30/23 11:43 Dose: 4 mg Documented By: DAYA Oxycodone HCl (Oxycodone Hcl Immed Release 5 Mg Tablet) 5 mg PO Q6H PRN PRN Reason: Pain, Moderate(Pain Scale 4-6) Sodium Chloride (0.9 % Sodium Chloride Flush 3 Ml Syringe) 3 ml IVFLUSH QSHIFT [facility] [place] Last Admin: 09/01/23 08:00 Dose: 3 ml Documented By: CARIE Tolterodine Tartrate (Tolterodine Tartrate La 4 Mg Cap.Er.24h) 4 mg PO DAILY [facility] [place] Last Admin: 09/01/23 08:01 Dose: 4 mg Documented By: CARIE Tramadol HCl (Tramadol Hcl 50 Mg Tablet) 100 mg PO Q6H PRN PRN Reason: Pain, Severe (Pain Scale 7-10) Labs 08/31/23 05:39 09/01/23 05:32 Labs: Laboratory Results - last 24 hr 08/31/23 08/31/23 08/31/23 11:08 16:15 19:38 Hold Purple Top Anion Gap Estim Creat Clear Calc Estimated GFR POC Glucose 145 H 99 113 Random Glucose Calcium Total Bilirubin Direct Bilirubin AST ALT Alkaline Phosphatase Total Protein Albumin 09/01/23 09/01/23 09/01/23 01:18 05:32 07:18 Hold Purple Top SEE NOTE Anion Gap 13 Estim Creat Clear Calc 87.5 Estimated GFR 59 POC Glucose 118 H 108 Random Glucose 97 Calcium 9.6 Total Bilirubin 0.3 Direct Bilirubin 0.2 AST 29 ALT 40 H Alkaline Phosphatase 121 H Total Protein 7.7 Albumin 3.4 L Microbiology Microbiology Results: Microbiology 08/29/23 21:41 Urine Culture - Final Urine clean catch - Clean Catch Midstream Staphylococcus epidermidis 08/30/23 00:44 Blood Culture - Preliminary Blood - Venous No growth after 48 hours. 08/30/23 00:08 Blood Culture - Preliminary Blood - Venous No growth after 48 hours. Assessment and Plan (1) Nephrolithiasis: Status: Acute (2) Morbid obesity with BMI of 45.0-49.9, adult: Status: Acute (3) Sepsis: Status: Acute (4) UTI (urinary tract infection): Status: Acute Plan 47-year-old female with history of hyperlipidemia, [id number] type 2 diabetes, GERD, nephrolithiasis and recent admission (08/12/23 - 08/17/23) for obstructive uropathy with hydronephrosis s/p left cystoscopy with stent placement that was complicated by severe urosepsis, candidemia and acute renal failure here with # Sepsis 2/2 likely UTI UTI vs persistent candidemia (previously grew Jaja lusitaniae)Urology did ureteral stent removal catheter tip culture pending Pending cultures DC Ceftriaxone Continue Fluconazole Start Clindamycin for now ID input appreciated, if Cx negative : check eye exam for endopthalmitis outpatient and stop Diflucan after 14-21 days. # Hx of Candidemia previously grew Jaja lusitaniae from catheter tip and completed 14 day course of oral Fluconazole on fluconazole pending cultures now # Transaminitis mildly elevated AST and ALT from baseline benign due to Fluconazole # Morbid obesity BMI of 47 encourage weight loss # T2DM resume Metformin DVT: SC Lovenox CODE STATUS: Full code Admission for overnight for management of urosepsis and potential persistent candidemia waiting blood cultures Quality Stroke Does the patient have a stroke diagnosis?: No VTE Prior VTE?: No VTE Risk Level:: Medical - moderate - high VTE Device Contraindication: N/A - Device Ordered VTE Drug Contraindication: N/A - Med Ordered
[2023-09-01 11:10] LABS: Glucose, Whole Blood 130 mg/dL (60-115)
[2023-09-01] MEDS: Clindamycin Phosphate/D5W 600 MG/50 ML PIGGYBACK 100 MG IV ×3 (12:00→23:15)
--- NOTE | 2023-09-01 13:28 | MHC.CM.PN ---
per rounds pt waiting on blood culture results ? dc in 1 to 2 days
[2023-09-01 15:08] VITALS: BP 110/77; PULSE 78; RESP 16; TEMP 36.6; O2SAT 95
[2023-09-01 16:03] LABS: Glucose, Whole Blood 107 mg/dL (60-115)
--- NOTE | 2023-09-01 17:01 | PM.UROPN ---
Subjective Subjective Date of Service: 09/01/23 Patient reports: no new complaints and feels better Interval history: Adela has h/o of nephrolithiasis, s/p left ureteral stent on IV abx for fungemia. I reviewed CTKUB b/L renal calculi, no stones along the stent Plan cysto stent removal at bedside. Certified multimedia production assistant present Physical Exam Vital Signs: Vital Signs: Last Vital Signs Temp 97.9 F 09/01/23 15:08 Pulse 78 09/01/23 15:08 Resp 16 09/01/23 15:08 BP 110/77 09/01/23 15:08 Pulse Ox 95 09/01/23 15:08 O2 Del Method Room Air 09/01/23 15:08 BMI result Body Mass Index 47.0 Urology Results Labs 08/31/23 05:39 09/01/23 05:32 Labs: Laboratory Results - last 24 hr 08/31/23 09/01/23 09/01/23 19:38 01:18 05:32 Hold Purple Top SEE NOTE Sodium 139 Potassium 3.6 Chloride 106 Carbon Dioxide 24 Anion Gap 13 BUN 10 Creatinine 1.02 Estim Creat Clear Calc 87.5 Estimated GFR 59 POC Glucose 113 118 H Random Glucose 97 Calcium 9.6 Total Bilirubin 0.3 Direct Bilirubin 0.2 AST 29 ALT 40 H Alkaline Phosphatase 121 H Total Protein 7.7 Albumin 3.4 L 09/01/23 09/01/23 09/01/23 07:18 11:06 15:59 Hold Purple Top Sodium Potassium Chloride Carbon Dioxide Anion Gap BUN Creatinine Estim Creat Clear Calc Estimated GFR POC Glucose 108 130 H 107 Random Glucose Calcium Total Bilirubin Direct Bilirubin AST ALT Alkaline Phosphatase Total Protein Albumin Progress Note: A&P Assessment and plan (1) Kidney stone on left side: Status: Acute (2) Ureteral stent present: Status: Acute (3) Fungemia: Status: Acute Plan Cystoscopy stent removed at bedside, stent sent for c/s Time Spent With Patient Time: Total time managing care of this patient today ____ minutes. Progress Note: Quality Stroke Does the patient have a stroke diagnosis?: No Cystoscopy Consent Discussed risk and benefit or proposed procedure with the patient. Information consent for procedure given to the patient. Discussed technical aspects, risks, benefits and alternatives in full. Addressed all of the patient's questions and concerns regarding the procedure. The patient demonstrated knowledge and understanding. They wish to proceed with this procedure. Preparation The patient was prepped in the usual manner. A surgical nurse practitioner was present and in the room. Genitalia was prepped with betadine solution in a sterile manner. Lidocaine Jelly 2% was placed into the urethra and 16Fr flexible disposible cystoscope was inserted into the meatus after adequate lubrication. Procedure Time out per protocol performed. Bladder Inspection Cystoscopy findings: mild edema ureteral orifice which is expected, distal end of ureteral stent visualized. The grasping forceps were used and the stent was removed without difficulty. [id number] with stent removal DISPOSABLE SCOPE URO-G FLEXIBLE SCOPE Procedure code (CPT) selection complete
[2023-09-01 19:44] LABS: Glucose, Whole Blood 153 mg/dL (60-115)
[2023-09-01 19:58] VITALS: BP 123/74; PULSE 76; RESP 16; TEMP 36.6; O2SAT 97
[2023-09-01] MEDS: Fluconazole 100 MG TABLET 400 MG PO (21:13)
[2023-09-01] MEDS: Amitriptyline HCl 10 MG TABLET PO (21:13)
[2023-09-02 03:54] VITALS: BP 109/55; PULSE 60; RESP 16; TEMP 36.3; O2SAT 98
[2023-09-02] MEDS: Clindamycin Phosphate/D5W 600 MG/50 ML PIGGYBACK 100 MG IV ×2 (05:05→12:08)
[2023-09-02] MEDS: Enoxaparin Sodium 40 MG/0.4 ML SYRINGE SUBCUT (05:56)
[2023-09-02 07:31] VITALS: BP 106/74; PULSE 71; RESP 16; TEMP 36.4; O2SAT 97
[2023-09-02 07:41] LABS: Glucose, Whole Blood 108 mg/dL (60-115)
[2023-09-02] MEDS: Atorvastatin Calcium 20 MG TABLET PO (09:40)
[2023-09-02] MEDS: 0.9 % Sodium Chloride Flush 3 ML SYRINGE IVFLUSH (09:40)
[2023-09-02] MEDS: Tolterodine Tartrate LA 4 MG CAP.ER.24H PO (09:40)
--- NOTE | 2023-09-02 10:48 | P.DS_ITS ---
DS: Providers Provider Date of Service: 09/02/23 Date of admission: 08/30/23 06:10 Primary care physician: Milly Prince MD Consults: 08/30/23 06:53 Consult to Infectious Diseases [place]ine [place]ing [place] [facility] [place] Reason for consultation: sepsis Consult to Urology Routine Consulting Provider: Kareem Solorio Reason for consultation: removal of ureteral stent Has provider been notified: No DS: Diagnosis Discharge Diagnosis (1) Morbid obesity with BMI of 45.0-49.9, adult: Status: Acute (2) Fungemia: Status: Acute (3) Ureteral stent present: Status: Acute (4) Nephrolithiasis: Status: Acute DS: Summary Hospital Course Hospital Course: Admission note HPI Patient is a 47-year-old female with history of hyperlipidemia, bjr-omuwlzc-nrmwzctzs type 2 diabetes, GERD, nephrolithiasis and recent admission (08/12/23 - 08/17/23) for obstructive uropathy with hydronephrosis s/p left cystoscopy with stent placement that was complicated by severe urosepsis, candidemia and acute renal failure who returns to the emergency room tonight complaining of feeling unwell over the last 3 days with intermittent fevers (TMax of 102.1)at home with chills, headaches and generalized fatigue. She was started on Fluconazole 400mg daily for the candidemia and has taken it for 2 weeks (08/16 - 08/30). She had a fever of 101.6 F at home and took a Tylenol before coming to the emergency room. Initial work up was notable for a leukocytosis of 14.9 k/mm3 and urinalysis was concerning for UTI. She received a dose of IV Ceftriaxone and IV Fluconazole following which admission was requested. She otherwise denies any other complains. Hospital course # Sepsis 2/2 likely UTI Liekly a result of UTI. Urology did ureteral stent removal and catheter tip culture pending at time of discharge. blood cultures remained negative >48 hours while urine culture grew Staph Epi. She was treated with Ceftriaxone (changed to Clindamycin after final culture result) and Fluconazole. ID input appreciated, if blood Cx negative : check eye exam for endopthalmitis outpatient and stop Diflucan after 14-21 days. The patient will be discharged on 2 weeks of Diflucan and follow with opthalmology as outpatient. To finish 1 week of antibiotics for the Staph Epi UTI given recent hx of instrumentation. She will follow with Urology as outpatient. # Transaminitis on admission mildly elevated AST and ALT from baseline likely benign due to Fluconazole, obesity. LFT improved during hospital stay. # Morbid obesity BMI of 47, encourage weight loss Continue Diflucan for 2 more weeks Continue Clindamycin for 5 more days To follow with Opthalmology as outpatient for eye exam for endopthalmitis To follow with dr Ragsdale as outpatient in 3 weeks, Office will call you. Time Attestation Discharge coordination time: Greater than 30 minutes Quality: Safe Use of Opioids Does Pt have an Active Cancer Diagnosis on the Problem List?: No Quality: Stroke Does the patient have a stroke diagnosis?: No Physical Exam Vital Signs: Vital Signs: Last Vital Signs Temp 97.6 F 09/02/23 07:31 Pulse 71 09/02/23 07:31 Resp 16 09/02/23 07:31 BP 106/74 09/02/23 07:31 Pulse Ox 97 09/02/23 07:31 O2 Del Method Room Air 09/02/23 07:31 BMI result Body Mass Index 47.0 Const: Other: Constitutional : Awake, interactive, not in distress Neck : Normal inspection, Supple Cardiovascular : RRR, no JVP, no lower extremity edema Respiratory : good bilateral air entry, no crackles, wheezes or rhonchi Gastrointestinal: soft, lax, Normal bowel sounds, Non tender Skin : Warm, Dry Neurological : Alert & oriented x3, No focal deficit DS: Data Data Completed and Pending Completed studies during hospitalization [Text1]: Procedures Dilation of Left Ureter with Intraluminal Device, Via Natural or Artificial Opening Endoscopic (08/12/23) Fluoroscopy of Left Kidney, Ureter and Bladder (08/12/23) Removal of Intraluminal Device from Ureter, Via Natural or Artificial Opening Endoscopic (08/12/23) Labs on day of discharge: Laboratory Results - last 24 hr 09/01/23 09/01/23 09/01/23 11:06 15:59 19:34 POC Glucose 130 H 107 153 H 09/02/23 07:37 POC Glucose 108 Preliminary micro results at discharge 09/01/23 08:50 Catheter Tip Culture - Preliminary Catheter Tip - Other Culture in progress. 08/30/23 00:44 Blood Culture - Preliminary Blood - Venous No growth after 48 hours. 08/30/23 00:08 Blood Culture - Preliminary Blood - Venous No growth after 48 hours. Imaging Chest x-ray: Radiologist's impression: ITS Impressions Chest X-Ray 08/29/23 23:25 IMPRESSION: Unremarkable examination. Abdomen/Pelvis CT 08/31/23 11:58 IMPRESSION: 1. Nonobstructive radiopaque calculi lower pole left kidney. There is a left ureteral stent with no radiopaque calculi seen adjacent to or surrounding the stent in the kidney pelvis or the ureter. 2. Mild constipation. Fleischner guidelines were followed. Discharge Plan Discharge Anticipated Discharge Date/Time: 09/02/23 10:40 Patient Disposition: Home, Self-Care Discharge Diagnosis: Urine infection Referrals: Milly Chambers MD [Primary Care Provider] - 1 Week Discharge Medications: New fluconazole 100 mg Tablet 400 mg PO BEDTIME Qty: 14 0RF clindamycin HCl 300 mg capsule 300 mg PO Q6H Qty: 20 0RF Continued atorvastatin 20 mg tablet 20 mg PO BEDTIME 90 Days Qty: 90 1RF pyridoxine (vitamin B6) 100 mg tablet 100 mg PO DAILY omeprazole 40 mg capsule,delayed release(DR/EC) 40 mg PO DAILY PRN (Reason: Acid Reflux) fluconazole [Diflucan] 200 mg tablet 400 mg PO DAILY 28 Days Qty: 56 0RF amitriptyline 10 mg tablet 10 mg PO BEDTIME metformin 500 mg tablet 500 mg PO BID solifenacin 10 mg tablet 10 mg PO DAILY Mirena 20 mcg/24 hours (7 yrs) 52 mg intrauterine device 1 device intrauterine CONT Discharge Orders: Discharge Order (Routine); Ordered 09/02/23 Ordered By: Bonilla Winkler Diet: Advance to usual diet Activity on Discharge: As tolerated Stand Alone Forms: Patient Portal Discharge page Care Plan Goals: Read below Health Concerns: Read below Plan of Treatment: Read below Assessment: You were treated with IV antibiotics and antifungal for a urine infection. evaluated by Urologist who removed the stent. Continue Diflucan for 2 more weeks Continue Clindamycin for 5 more days To follow with Opthalmology as outpatient for eye exam for endopthalmitis To follow with dr Ragsdale as outpatient in 3 weeks, Office will call you.
--- NOTE | 2023-09-02 11:04 | MHC.CM.PN ---
PT WILL DC HOME TODAY WITH NO SERVICES VIA SELF TRANSPORT
[2023-09-02 11:18] LABS: Glucose, Whole Blood 128 mg/dL (60-115)
== END 2023-09-02 12:51 | disposition home or self-care (01) | DRG 720 ==
LOC: HO.ED 08-30 00:42 → HO.EDOVER 08-30 06:15 → HO.S3 08-30 07:42
PROVIDERS: Admitting Provider Internal Medicine; Emergency Provider Emergency Medicine; PCP Internal Medicine; Visit Provider Student in an Organized Health Care Education/Training Program
DX: B37.7 Candidal sepsis (principal); R65.20 Severe sepsis without septic shock; E66.01 Morbid (severe) obesity due to excess calories; N20.1 Calculus of ureter; B95.7 Other staphylococcus as the cause of diseases classified elsewhere; N39.0 Urinary tract infection, site not specified; Z20.822 Contact with and (suspected) exposure to COVID-19; Z98.84 Bariatric surgery status; Z68.42 Body mass index [BMI] 45.0-49.9, adult; Z79.84 Long term (current) use of oral hypoglycemic drugs; Z79.899 Other long term (current) drug therapy
CPT/HCPCS: 0241U; 36415; 52310; 71045; 74178; 80048; 80053; 80076; 81001; 82947; 83605; 83690; 85025; 87040; 87070; 87071; 87086; 87088; 87186; 87205; 99285; J0696; J0736; J1450; J1650; J2405; Q9967

== ENCOUNTER → 2023-08-30 06:10 | Outpatient (BNV) | payer OTHER, SELFPAY | PROVIDERS: Admitting Provider Internal Medicine; Emergency Provider Emergency Medicine; PCP Internal Medicine; Visit Provider Internal Medicine | DX: B37.7 Candidal sepsis (principal); R65.20 Severe sepsis without septic shock; N10 Acute pyelonephritis; R74.01 Elevation of levels of liver transaminase levels; E66.01 Morbid (severe) obesity due to excess calories; Z68.42 Body mass index [BMI] 45.0-49.9, adult | CPT/HCPCS: 99223; 99232; 99239; 99499 ==

== ENCOUNTER → 2023-08-30 06:10 | Outpatient (BNV) | payer OTHER, SELFPAY | PROVIDERS: Admitting Provider Internal Medicine; Emergency Provider Emergency Medicine; PCP Internal Medicine; Visit Provider Internal Medicine | DX: R42 Dizziness and giddiness (principal); R11.0 Nausea; R51.9 Headache, unspecified | CPT/HCPCS: 99222 ==

== ENCOUNTER → 2023-08-30 06:10 | Outpatient (BNV) | payer OTHER, SELFPAY | PROVIDERS: Admitting Provider Internal Medicine; Emergency Provider Emergency Medicine; PCP Internal Medicine; Visit Provider Urology | DX: E66.01 Morbid (severe) obesity due to excess calories (principal); Z68.42 Body mass index [BMI] 45.0-49.9, adult; B49 Unspecified mycosis; Z96.0 Presence of urogenital implants; N20.0 Calculus of kidney | CPT/HCPCS: 52310; 99222; 99232 ==

== ENCOUNTER 2023-09-18 14:10 | Outpatient (AMB) | payer OTHER, SELFPAY ==
[2023-09-18 14:13] VITALS: BP 113/70; PULSE 74; BMI 48.0
--- NOTE | 2023-09-18 14:13 | MHC.OFFVIS ---
Intake Vital Signs 09/18/23 14:13 Height 5 ft 3 in Weight 270 lb 11.642 oz BMI 48.0 BP 113/70 Blood Pressure Location Lt brachial Position Sitting Pulse 74 Intake Visit Reasons: Colonoscopy Screening Intake Note: Patient returns to in office visit today in follow up for colonoscopy screening. CC: Patient reports heartburn well managed with medications. Denies other GI symptoms today. Youth Probation Officer Required: Yes Accompanied by: Self / Same As Patient Allergies pollard Allergy (Intermediate, Verified 09/18/23 14:15) Itching raspberry Allergy (Intermediate, Verified 09/18/23 14:15) Itching No Known Drug Allergies Allergy (Unknown, Verified 09/18/23 14:15) Unknown Medication List - Last Reconciled 09/18/23 by Ara Cisneros PA-C amitriptyline 10 mg PO BEDTIME atorvastatin 20 mg PO BEDTIME 90 days bisacodyl (Dulcolax (bisacodyl)) 20 mg (4 x 5 mg) PO ONCE 1 day levonorgestrel (Mirena) 1 device intrauterine CONT metformin 500 mg PO BID omeprazole 40 mg PO DAILY PRN polyethylene glycol 3350 (Miralax) 238 grams PO ONCE PRN 1 day pyridoxine (vitamin B6) 100 mg PO DAILY HPI HPI Comments History of Present Illness Details 47-year-old female with chronic constipation acid reflux seen last in March scheduled for colonoscopy returns today She has well-controlled acid reflux with PPI-constipation has resolved now issues she had an EGD in the past HH-lifestyle modifications- no issues she never had colonoscopy-admitted in August for sepsis secondary UTI-recovered well Appetite is good Normal bowels- She has no cardiac or respiratory issues No nausea, vomiting, abdominal pain, hematemesis, hematochezia fever or chills [facility] Medical History Nephrolithiasis Morbid obesity with BMI of 45.0-49.9, adult Kidney stone on left side Urinary tract infection Blurry vision, left eye Cervical spine pain Internal and external hemorrhoids without complication Hemorrhoids Renal calculi BMI 45.0-49.9, adult Thiamine deficiency Dyslipidemia GERD (gastroesophageal reflux disease) Hematuria Thickened endometrium Abnormal uterine bleeding (AUB) Pure hypercholesterolemia Insomnia Kidney stone Ectopic Surgical History Hx of lithotripsy H/O laparoscopy Hx of section Hx of cholecystectomy Hx of laparoscopic gastric banding Family History Mother Osteoporosis Glaucoma Migraine Ovarian cancer Uterine cancer Sister Uterine cancer Maternal Grandfather Diabetes mellitus Paternal Grandmother Diabetes mellitus HTN (hypertension) Maternal Uncle Throat cancer Father HIV (human immunodeficiency virus infection) Sister Heart abnormality Sister Heart abnormality Epilepsy Brother No problems noted. Son No problems noted. Family/Other Substance use disorder Social History Household Members: Children Housing: Apartment Do you presently have visiting nurse or other home services: No Alcohol intake: never Patient Tobacco Use Status: Never used Tobacco e-Cigarette/Vaping Use: Never Used Second Hand Smoke Exposure: Yes service: No 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al status: employed 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al exposures/hazards: No Gender identity: Female Cognitive needs: No Hearing needs: No Vision needs: Yes (glasses) Female Reproductive History Menstrual Age of Menarche: 14 Review of Systems Const All systems reviewed & are unremarkable except as noted in HPI and below Card Denies chest pain and Denies dyspnea Resp Denies dyspnea GI Denies abdominal pain, Denies hematochezia, Denies change in bowel habits, Denies heartburn, Denies diarrhea, Denies nausea and Denies vomiting Physical Exam Vital Signs: Last Vital Signs Pulse 74 09/18/23 14:13 BP 113/70 09/18/23 14:13 BMI result Body Mass Index 48.0 Const General: cooperative, healthy appearing, comfortable and no acute distress Orientation/consciousness: patient oriented x3 Limitations: language barrier Eyes Sclerae: sclerae normal Resp Effort & Inspection: normal respiratory effort and able to speak in complete sentences Auscultation: clear to auscultation bilaterally, no rales, no rhonchi and no wheezes Cardio Rate: regular rate Rhythm: regular rhythm Heart sounds: S1 normal heart sound present and S2 normal heart sound present GI Inspection: Yes normal to inspection Palpation (GI): Soft to palpation and nontender Auscultation: normal bowel sounds Skin General skin exam: no rashes or lesions noted Neuro General: patient oriented x3 Extrem General: Yes full ROM Psych Appearance: grossly normal and well kempt Mental Status: mental status grossly normal Speech and movement: Normal speech and movement present and Clear speech present Affect: normal affect Attitude: cooperative Thought process: Normal thought process present Thought content: Normal thought content present Insight: Good insight present (Psych) Judgement: Good judgement present (Psych) Assessment & Plan Assessment & Plan (1) GERD (gastroesophageal reflux disease): Code(s): K21.9 - Gastro-esophageal reflux disease without esophagitis Plan: Well controlled continue PPI (2) Encounter for screening colonoscopy: Comment: Discussed procedure, rare risks need for escorted due to anesthesia Code(s): Z12.11 - Encounter for screening for malignant neoplasm of colon Plan: Screening colonoscopy Plan Screening colonoscopy MiraLax Gatorade prep Omit metformin evening before procedure No diabetes medications morning of procedure Orders: Orders Colonoscopy - GI Use Only Today Z12.11 - Encounter for screening for malignant neoplasm of colon Medications: New bisacodyl (Dulcolax (bisacodyl)) Day before procedure, prep day Take 4 tablets by mouth upon awakening followed by large glass of water 20 mg (4 x 5 mg) PO ONCE 1 day 4 tabs 0RF colonoscopy prep Z12.11 - Encounter for screening for malignant neoplasm of colon polyethylene glycol 3350 (Miralax) Take as directed by mouth the day before your procedure. 238 grams PO ONCE 1 day PRN 238 grams 0RF laxative effect Patient Instructions: Screening colonoscopy MiraLax Gatorade prep, reviewed literature given Omit metformin evening before procedure No diabetes medications morning of procedure Encouraged to call questions or concerns Appreciate the opportunity assist in the care this pleasant patient Coding Level of Care Code Est Pt Level 3 (53323) Diagnoses GERD (gastroesophageal reflux disease) K21.9 Encounter for screening colonoscopy Z12.11 Time Spent (min) 30 Comment deep fat cook fry [id number]
== END 2023-09-18 15:04 | disposition home or self-care (01) ==
PROVIDERS: PCP Internal Medicine; Visit Provider Physician Assistant
DX: K21.9 Gastro-esophageal reflux disease without esophagitis (principal); Z12.11 Encounter for screening for malignant neoplasm of colon
CPT/HCPCS: 99213

== ENCOUNTER → 2023-09-18 14:10 | Outpatient (BNVA) | payer OTHER, SELFPAY | PROVIDERS: PCP Internal Medicine; Visit Provider Physician Assistant | DX: Z12.11 Encounter for screening for malignant neoplasm of colon (principal); K21.9 Gastro-esophageal reflux disease without esophagitis | CPT/HCPCS: 99212 ==

== ENCOUNTER 2023-09-27 08:58 | Outpatient (AMB) | payer OTHER, SELFPAY ==
[2023-09-27 09:10] VITALS: BP 126/88; PULSE 77; O2SAT 100; BMI 48.2
--- NOTE | 2023-09-27 09:10 | A.OFFPC_ITS ---
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 Accompanied by: Self / Same As Patient Allergies pollard Allergy (Intermediate, Verified 09/27/23 09:11) Itching raspberry Allergy (Intermediate, Verified 09/27/23 09:11) Itching No Known Drug Allergies Allergy (Unknown, Verified 09/27/23 09:11) Unknown Medication List - Last Reconciled 09/27/23 by MARK ANTHONY Hodges amitriptyline 10 mg PO BEDTIME atorvastatin 20 mg PO BEDTIME 90 days bisacodyl (Dulcolax (bisacodyl)) 20 mg (4 x 5 mg) PO ONCE 1 day levonorgestrel (Mirena) 1 device intrauterine CONT metformin 500 mg PO BID omeprazole 40 mg PO DAILY PRN polyethylene glycol 3350 (Miralax) 238 grams PO ONCE PRN 1 day pyridoxine (vitamin B6) 100 mg PO DAILY Tobacco use date assessed: 09/27/23 Dental Screening Dental Screen Date: 09/27/23 Did you have a dental visit in the last 12 months?: No Did you have a dental problem in the last 6 months where you did not have access to dental care?: No Was dental information given to patient?: Patient has dentist HPI HPI Comments History of Present Illness Details 47-year-old female with history of hyper lipidemia, [id number] type 2 diabetes, GERD, nephrolithiasis presents to the office to follow-up on multiple hospital admissions/discharges. She was initially admitted to [facility] from 08/12-08/17 due to obstructive uropathy with hydronephrosis s/p left cystoscopy with stent placement which was complicated by severe urosepsis, candidemia, and acute kidney injury. The patient was treated with IV ceftriaxone with urine culture growing yeast. Blood cultures ultimately grew del lusitaniae x2. She was followed by infectious disease who recommended treatment with caspofungin and ceftriaxone was discontinued. All lines and ureteral stent were removed and replaced. She was discharged on diflucan 400mg daily x 4 weeks. Unfortanately returned to [facility] ED due to malaise, fevers of 101.6 at home and was readmitted to [facility] from 08/30- 09/02 due to concern over UTI with sepsis. Urine culture grew staph epi and blood cultures negative during admission. Ureteral stent was again removed and catheter tip culture was contaminated with normal syeda. Ceftriaxone was changed to clindamycin due to urine culture/sensitivity report and she was continued on diflucan. She was discharged on clindamycin x 5 days and diflucan x14 days. Advised to follow up with ophthmology and urology. Today, she is reporting she is feeling much better. She has remained afebrile without any chills, dysuria, hematuria, urinary urgency, or vaginal discharge. She has completed course of Diflucan. Denies any vision changes. She is yet to schedule appointment with Ophthalmology and states she needs a referral. Discussed with Infectious Disease who does not feel patient requires additional workup into candidemia. Her diabetes has remained well-controlled with fasting glucose around 127-130 in the morning continues on metformin. She has actively been working on lifestyle modifications with diet lower in carbohydrates. She has not exercising however. [facility] Medical History Nephrolithiasis Morbid obesity with BMI of 45.0-49.9, adult Kidney stone on left side Urinary tract infection Blurry vision, left eye Cervical spine pain Internal and external hemorrhoids without complication Hemorrhoids Renal calculi BMI 45.0-49.9, adult Thiamine deficiency Dyslipidemia GERD (gastroesophageal reflux disease) Hematuria Thickened endometrium Abnormal uterine bleeding (AUB) Pure hypercholesterolemia Insomnia Kidney stone Ectopic Surgical History Hx of lithotripsy H/O laparoscopy Hx of section Hx of cholecystectomy Hx of laparoscopic gastric banding Family History Mother Osteoporosis Glaucoma Migraine Ovarian cancer Uterine cancer Sister Uterine cancer Maternal Grandfather Diabetes mellitus Paternal Grandmother Diabetes mellitus HTN (hypertension) Maternal Uncle Throat cancer Father HIV (human immunodeficiency virus infection) Sister Heart abnormality Sister Heart abnormality Epilepsy Brother No problems noted. Son No problems noted. Family/Other Substance use disorder Social History Household Members: Children Housing: Apartment Do you presently have visiting nurse or other home services: No Alcohol intake: never Patient Tobacco Use Status: Never used Tobacco e-Cigarette/Vaping Use: Never Used Second Hand Smoke Exposure: Yes service: No 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al status: employed 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al exposures/hazards: No Gender identity: Female Cognitive needs: No Hearing needs: No Vision needs: Yes (glasses) Female Reproductive History Menstrual Age of Menarche: 14 Questionnaire PHQ-9 Over the last 2 weeks, how often have you been bothered by any of the following problems? 1. Little interest or pleasure in doing things: several days 2. Feeling down, depressed, or hopeless: several days 3. Trouble falling or staying asleep, or sleeping too much: several days 4. Feeling tired or having little energy: not at all 5. Poor appetite or overeating: not at all 6. Feeling bad about yourself - or that you are a failure or have let yourself or your family down: nearly every day 7. Trouble concentrating on things, such as reading the newspaper or watching te levision: not at all 8. Moving or speaking so slowly that other people could have noticed. Or the opposite - being so fidgety or restless that you have been moving around a lot more than usual: several days 9. Thoughts that you would be better off or of hurting yourself in some way: not at all Total score: 7 Depression Screening Interpretation: Positive Depression Screening Follow-up: Existing condition and Community Mental Health Worker F/U Depression Screening Done: Yes 59085 - PHQ-9 Billing: Yes Source: Developed by Drs. Raffaele Allen, Dominga Pino, Sai Serna and colleagues, with an educational eugenio from [employer]. Thrive Questionnaire Date Thrive assessed: 09/27/23 I am a: Patient What is your living situation today?: I have a steady place to live Within the past 12 months, did the food you bought not last and you didn't have the money to get more?: Never true Within the past 12 months, did you worry whether your food would run out before you got money to buy more?: Never true Do you have trouble paying for medicines?: No Do you have trouble getting transportation to medical appointments?: No Do you have trouble paying your heating and electricity bill?: No Do you have trouble taking care of your child, family member or friend?: No Do you have trouble with day-to-day activities such as bathing, preparing meals, shopping, managing finances, etc.?: No Are you currently unemployed and looking for a job?: No Are you interested in more education?: No Please select the resources that you would like help with: None THRIVE Score: 0 AUDIT C Alcohol Use Questionnaire (AUDIT-C) 1. How often do you have a drink containing alcohol?: Never Total Score: 0 JOHNATHON-7 AMB Questionnaire JOHNATHON-7 Date JOHNATHON - 7 assessed: 09/27/23 Feeling nervous, anxious, or on edge: 0 = Not at all Not being able to stop or control worryin = Not at all Worrying too much about different things: 0 = Not at all Trouble relaxin = Not at all Being so restless that it is hard to sit still: 0 = Not at all Becoming easily annoyed or irritable: 0 = Not at all Feeling afraid as if something awful might happen: 0 = Not at all Total JOHNATHON-7 score (0-4 normal; 5-9 mild; 10-14 moderate; 15-21 severe): 0 Source: Developed by Drs. Raffaele Allen, Dominga Pino, Sai Serna and colleagues, with an educational eugenio from [employer]. Review of Systems Const All systems reviewed & are unremarkable except as noted in HPI and below Physical exam (Primary Care) Vital Signs: Last Vital Signs Pulse 77 09/27/23 09:10 BP 126/88 09/27/23 09:10 Pulse Ox 100 09/27/23 09:10 Oxygen Delivery Method Room Air 09/27/23 09:10 BMI result Body Mass Index 48.2 Tobacco/Smoking Status: Tobacco use Status Tobacco use date assessed 09/27/23 09/27/23 09:16 Patient Tobacco Use Status Never used Tobacco 09/27/23 09:16 e-Cigarette/Vaping Use Never Used 09/27/23 09:16 PHQ-9: PHQ-9 Score PHQ-9: Total score 7 10/06/23 16:58 Depression Screening Interpretation: Positive Depression Screening Follow-up: Existing condition and Community Mental Health Worker F/U Thrive Assessment: Date of Thrive Assessment Date Thrive assessed 09/27/23 09/27/23 09:16 Const Other: Constitutional - Awake and Alert, No apparent distress Eyes - PERRLA, EOMI Cardiovascular - S1S2, RRR, No edema Respiratory - Normal lung expansion, Normal respiratory effort, No respiratory distress, CTA bilaterally Gastrointestinal - NT / ND; +BS; No rebound or guarding Extremities - no calf tenderness bilaterally, no swelling Skin - Warm/Dry Neurological - Alert & oriented x3 Psychological - Appropriate affect Results Reviewed Results Reviewed: H&p x2, Discharge summary x 2, blood cultures, urine cultures, ID consult notes, urology consult notes, operative report Assessment and Plan Assessment & Plan (1) Urinary tract infection: Code(s): N39.0 - Urinary tract infection, site not specified Plan: Resolved. Initial UC resulted del lusitaniae- completed diflucan, repeat cultures during second admission negative for yeast. Completed course of clindamycin for staph epi on urine culture during 2nd admission. Monitor for recurrence of symptoms. Follow up [facility] urology as scheduled (2) Candidemia: Code(s): B37.7 - Candidal sepsis Plan: Resolved. Completed 4 week course diflucan without any recurrence of fevers, chills, malaise. She is advised she should be evaluated by ophthamology following candidemia infection and referral is placed. (3) Diabetes mellitus: Code(s): E11.9 - Type 2 diabetes mellitus without complications Plan: Controlled with repeat hgb a1c 6.2%. She will continue on metformin 500mg BID. Strongly encouraged compliance with diabetic diet which was reviewed. Check fasting glucose daily. Referred to ophtho for dm eye exam. (4) BMI 45.0-49.9, adult: Code(s): Z68.42 - Body mass index [BMI] 45.0-49.9, adult Plan: Working on weight loss and congratulated on this. Strongly encouraged increased exercise and continued compliance with healthy diet lower in calories including processed foods, refined sugars, and unhealthy fats. Will also check TSH to evaluate for hypothyroidism that could be contributing to weight loss difficulty Orders: Orders TSH reflex Free T4 09/27/23 Z68.42 - Body mass index [BMI] 45.0-49.9, adult, M79.602 - Pain in left arm Hemoglobin A1c 09/27/23 E11.9 - Type 2 diabetes mellitus without complications Referrals Ophthalmology Referral B37.7 - Candidal sepsis, E11.9 - Type 2 diabetes mellitus without complications Coding Level of Care Code Tele Est Pt Level 5 (52447) Diagnoses Urinary tract infection N39.0 Candidemia B37.7 Diabetes mellitus E11.9 BMI 45.0-49.9, adult Z68.42 Time Spent (min) 50 Comment complex pt with complex admissions- time spent reviewing, with pt, and documentation
== END 2023-09-27 10:00 | disposition home or self-care (01) ==
PROVIDERS: PCP Internal Medicine; Visit Provider Physician Assistant
DX: N39.0 Urinary tract infection, site not specified (principal); E11.40 Type 2 diabetes mellitus with diabetic neuropathy, unspecified; E66.01 Morbid (severe) obesity due to excess calories; Z68.42 Body mass index [BMI] 45.0-49.9, adult
CPT/HCPCS: 99215

== ENCOUNTER 2023-10-09 10:05 | Outpatient (REF) | payer OTHER, SELFPAY ==
[2023-10-09 13:14] LABS: Estimated Average Glucose 131 mg/dL; Hemoglobin A1c % 6.2 % (<6.0)
[2023-10-09 13:48] LABS: Alanine Aminotransferase 36 U/L (0-31); Albumin Level 3.9 g/dL (3.5-5.0); Alkaline Phosphatase 127 U/L (39-117); Anion Gap 12 (12-20); Aspartate Amino Transferase 22 U/L (5-31); Bilirubin Total 0.5 mg/dL (0.0-1.0); Blood Urea Nitrogen 13 mg/dL (9-16); Calcium 9.6 mg/dL (8.4-10.2); Carbon Dioxide 27 mmol/L (22-29); Chloride 107 mmol/L (96-108); Cholesterol 185 mg/dL (<200); Estimated Glomerular Filt Rate 42; Glucose Fasting 200 mg/dL (60-99); HDL Cholesterol 32 mg/dL (>40); LDL Cholesterol Calculated 93 mg/dL (<100); Sodium 142 mmol/L (135-145); Total Protein 7.6 g/dL (6.5-8.0); Triglycerides 301 mg/dL (<150)
[2023-10-09 13:52] LABS: Creatinine Urine 161.01 mg/dL; Microalbum/Creatinine Ratio Ur 7.4 ug/mg cr (<30)
[2023-10-09 14:05] LABS: TSH reflex Free T4 1.56 uIU/mL (0.32-4.0)
== END 2023-10-09 10:06 | disposition home or self-care (01) ==
LOC: HO.LAB 10:05
PROVIDERS: Physician Assistant; PCP Internal Medicine; Visit Provider Internal Medicine
DX: E11.9 Type 2 diabetes mellitus without complications (principal); E78.5 Hyperlipidemia, unspecified; M79.602 Pain in left arm
CPT/HCPCS: 36415; 80053; 80061; 82043; 82570; 83036; 84443

== ENCOUNTER 2023-10-26 15:42 | Outpatient (AMB) | payer OTHER, SELFPAY ==
--- NOTE | 2023-10-26 15:53 | A.OFFVIS_ITS ---
Intake Intake Visit Reasons: f/u Kidney Stones (set) Intake Note: Patient presents today for a follow-up on Kidney Stones: Meds- Vitamin B6 Allergies to Antibiotic- No Known Allergies Blood Thinner- None Scrap Hooker Required: Yes Scrap Hooker Language: Children Counselor Name: Haydeesukhwinder Curtis, NABEEL/PANTERA SPANI Information Interpreted: non-clinical & clinical Allergies pollard Allergy (Intermediate, Verified 09/27/23 09:11) Itching raspberry Allergy (Intermediate, Verified 09/27/23 09:11) Itching No Known Drug Allergies Allergy (Unknown, Verified 09/27/23 09:11) Unknown HPI HPI Comments History of Present Illness Details Adela is a 47-year-old female who presents today, she was last evaluated as an inpatient she was admitted for UTI sepsis from fungemia. She was evaluated by Infectious Disease. During hospitalization ureteral stent was removed. She states that she has been doing well she denies dysuria she denies urinary incontinence. I reviewed with the patient that the CT [facility] that [facility] noted 2 stone fragments in the left lower pole kidney 3 mm in 6 mm 08/31/23--CTAP: KIDNEYS AND URETERS: The kidneys are normal in size, shape, and attenuation. There is 3 mm and 6 mm radiopaque calculi adjacent to each other in lower pole calyx left kidney without caliectasis. Review of chart: 07/26/2023-- She is followed today s/p ureteroscopy laser lithotripsy stent insertion. Kub Xray I have discussed with the patient that the KUB X-ray is not officially read; however, on my inspection there may be a calcification along the left ureteral stent as well as few calcifications over the left lower pole of the left kidney. I have discussed repeat ureteroscopy and retrograde with stent removal and possible lithotripsy, stone extraction as needed. Cystoscopy not done today. 07/13/2023--She presents today for an ev aluation of kidney stones. PMH of obesity, kidney stones, anxiety, HLD, prediabetes, recurrent UTI, and GERD The patient is a Maltese speaking female. Certified financial auditor was present during the Tele-health visit. I reviewed the CAT scan of the abdomen/pelvis results from 07/09/2023 revealed a 6 mm right proximal ureteral stone and bilateral non obstructing kidney calculi. Patient states that she has never passed a kidney stone in the past. She states that she has had kidney stones in the past. Patient has had prior procedures include shock wave lithotripsy as well as previous stent for the kidney stones. 07/26/2023: Plan:Repeat ureteroscopy and retrograde with stent removal and possible lithotripsy, stone extraction was discussed to be scheduled. Ordered Veiscare 10 mg for her bladder spasms. 10/27/23--Monitor Kidneys renal sono, KUB, 24 hr urine Cont Vit B6 100 mg daily PFSH Medical History (Updated 10/26/23 @ 16:02 by Kareem Solorio MD) Kidney stone on left side Nephrolithiasis Morbid obesity with BMI of 45.0-49.9, adult Urinary tract infection Blurry vision, left eye Cervical spine pain Internal and external hemorrhoids without complication Hemorrhoids Renal calculi BMI 45.0-49.9, adult Thiamine deficiency Dyslipidemia GERD (gastroesophageal reflux disease) Hematuria Thickened endometrium Abnormal uterine bleeding (AUB) Pure hypercholesterolemia Insomnia Kidney stone Ectopic Surgical History Hx of lithotripsy H/O laparoscopy Hx of section Hx of cholecystectomy Hx of laparoscopic gastric banding Family History Mother Osteoporosis Glaucoma Migraine Ovarian cancer Uterine cancer Sister Uterine cancer Maternal Grandfather Diabetes mellitus Paternal Grandmother Diabetes mellitus HTN (hypertension) Maternal Uncle Throat cancer Father HIV (human immunodeficiency virus infection) Sister Heart abnormality Sister Heart abnormality Epilepsy Brother No problems noted. Son No problems noted. Family/Other Substance use disorder Social History Household Members: Children Housing: Apartment Do you presently have visiting nurse or other home services: No Alcohol intake: never Patient Tobacco Use Status: Never used Tobacco e-Cigarette/Vaping Use: Never Used Second Hand Smoke Exposure: Yes service: No 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al status: employed 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al exposures/hazards: No Gender identity: Female Cognitive needs: No Hearing needs: No Vision needs: Yes (glasses) Female Reproductive History Menstrual Age of Menarche: 14 Review of Systems Const All systems reviewed & are unremarkable except as noted in HPI and below Reports no additional complaints Eyes Reports no additional complaints ENT Reports no additional complaints Card Denies dyspnea Resp Denies cough and Denies dyspnea GI Reports no additional complaints Reports no additional complaints Musc Reports no additional complaints Skin/Breast Denies rash and Denies unusual bruising Neuro Reports no additional complaints Psych Reports no additional complaints Endo Reports no additional complaints Charan/Lymph Reports no additional complaints Aller/Immun Reports no additional complaints Results Reviewed Results Reviewed: Date of Service: 08/31/23 EXAMINATION: CT ABDOMEN AND PELVIS WITHOUT AND WITH CONTRAST CLINICAL INFORMATION: 4 anemia. Evaluate for stone. COMPARISON: None available. TECHNIQUE: Multidetector volumetric imaging was performed of the abdomen and pelvis before and after the IV administration of 85 mL of Omnipaque 350 intravenous contrast. Sagittal and coronal reformatted images were obtained on the technologist's workstation. This CT examination was performed using dose optimization techniques as appropriate, variously including the following: *Automated exposure control *Adjustment of mA and/or kV according to patient size (this includes techniques or standardized protocols for targeted exams where dose is matched to indication/reason for exam; i.e. extremities or head) *Use of iterative reconstruction technique DLP: 1737 mGy-cm FINDINGS: LUNG BASES: There is platelike atelectasis right lower lobe. Heart size is normal. LIVER, GALLBLADDER, AND BILIARY TREE: The liver is normal in size, shape, and attenuation. No focal hepatic lesion or biliary ductal dilatation is present. The gallbladder has been surgically removed. PANCREAS: Unremarkable SPLEEN: Unremarkable ADRENAL GLANDS: Unremarkable KIDNEYS AND URETERS: The kidneys are normal in size, shape, and attenuation. There is 3 mm and 6 mm radiopaque calculi adjacent to each other in lower pole calyx left kidney without caliectasis. There is a left ureteral stent with no radiopaque calculi seen adjacent or surrounding the stent in the kidney pelvis or the ureter.. Postcontrast both kidney nephrograms are symmetrical in size. Small cortical defect upper pole likely scarring. No enhancing renal mass, cyst or hydronephrosis seen. BLADDER: The bladder is nondistended and appears unremarkable. GASTROINTESTINAL TRACT: Scattered stool and gas is seen throughout the colon without significant distention. The small bowel loops are normal caliber. Appendix is not visualized no free air or free fluid. ABDOMINAL WALL: There is no evidence of hiatal hernia. There are punctate gas seen within the anterior abdominal wall likely related to 2 subcutaneous injections. LYMPH NODES: There are multiple small left para-aortic lymph nodes visualized with largest nodes measuring 1.4 and 1.7 cm. VASCULAR: Unremarkable PELVIC VISCERA: The uterus is anteverted with an IUD well located within endometrial canal. OSSEOUS STRUCTURES: No aggressive lytic or sclerotic process seen. IMPRESSION: 1. Nonobstructive radiopaque calculi lower pole left kidney. There is a left ureteral stent with no radiopaque calculi seen adjacent to or surrounding the stent in the kidney pelvis or the ureter. 2. Mild constipation. Assessment & Plan Assessment & Plan (1) Kidney stone on left side: Code(s): N20.0 - Calculus of kidney Plan Monitor Kidneys renal sono, KUB, 24 hr urine Orders: Orders US renal BI 10/26/23 N20.0 - Calculus of kidney XR KUB 10/26/23 Coding Level of Care Code Est Pt Level 4 (00330) Diagnoses Kidney stone on left side N20.0
== END 2023-10-26 16:06 | disposition home or self-care (01) ==
PROVIDERS: PCP Internal Medicine; Visit Provider Urology
DX: N20.0 Calculus of kidney (principal)
CPT/HCPCS: 99214

== ENCOUNTER → 2023-10-26 15:42 | Outpatient (BNVA) | payer OTHER, SELFPAY | PROVIDERS: PCP Internal Medicine; Visit Provider Urology | DX: N20.0 Calculus of kidney (principal) | CPT/HCPCS: 99212 ==

== ENCOUNTER 2023-11-30 08:53 | Outpatient (AMB) | payer OTHER, SELFPAY ==
[2023-11-30 09:41] VITALS: BP 130/100; PULSE 81; TEMP 521.1; TEMP 970; O2SAT 99; BMI 49.2
--- NOTE | 2023-11-30 09:41 | AM.OFFWIN_ITS ---
Intake Vital Signs 11/30/23 09:41 Height 5 ft 3 in Weight 278 lb BMI 49.2 BP 130/100 H Blood Pressure Location Lt brachial Position Sitting Pulse 81 Pulse Source Pulse Oximeter Temp 970 F H Temp Source Temporal Artery Scan Pulse Oximetry (%) 99 Oxygen Delivery Method Room Air Intake Visit Reasons: EP LT hand Hurts/concerns Intake Note: pt is here today for lft hand hurts started monday Patient Tobacco Use Status: Never used Tobacco Allergies pollard Allergy (Intermediate, Verified 11/30/23 09:44) Itching raspberry Allergy (Intermediate, Verified 11/30/23 09:44) Itching No Known Drug Allergies Allergy (Unknown, Verified 11/30/23 09:44) Unknown Do you need a note to return to daycare/school/sports/work: No HPI EP LT hand Hurts/concerns HPI Details 47-year-old female patient presents toda with metal shards in her left hand. States she was working on her car this past Monday and something slipped with a chain and this resulted in three small pieces of metal in her left hand. She has tried to remove them at home without success. Denies any hand pain, swe lling, erythema, or fevers. [facility] Medical History Kidney stone on left side Nephrolithiasis Morbid obesity with BMI of 45.0-49.9, adult Urinary tract infection Blurry vision, left eye Cervical spine pain Internal and external hemorrhoids without complication Hemorrhoids Renal calculi BMI 45.0-49.9, adult Thiamine deficiency Dyslipidemia GERD (gastroesophageal reflux disease) Hematuria Thickened endometrium Abnormal uterine bleeding (AUB) Pure hypercholesterolemia Insomnia Kidney stone Ectopic Surgical History Hx of lithotripsy H/O laparoscopy Hx of section Hx of cholecystectomy Hx of laparoscopic gastric banding Family History Mother Osteoporosis Glaucoma Migraine Ovarian cancer Uterine cancer Sister Uterine cancer Maternal Grandfather Diabetes mellitus Paternal Grandmother Diabetes mellitus HTN (hypertension) Maternal Uncle Throat cancer Father HIV (human immunodeficiency virus infection) Sister Heart abnormality Sister Heart abnormality Epilepsy Brother No problems noted. Son No problems noted. Family/Other Substance use disorder Social History Household Members: Children Housing: Apartment Do you presently have visiting nurse or other home services: No Alcohol intake: never Patient Tobacco Use Status: Never used Tobacco e-Cigarette/Vaping Use: Never Used Second Hand Smoke Exposure: Yes service: No 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al status: employed 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al exposures/hazards: No Gender identity: Female Cognitive needs: No Hearing needs: No Vision needs: Yes (glasses) Female Reproductive History Menstrual Age of Menarche: 14 Review of Systems Const All systems reviewed & are unremarkable except as noted in HPI and below Physical Exam Vital Signs: Last Vital Signs Temp 970 F H 11/30/23 09:41 Pulse 81 11/30/23 09:41 BP 130/100 H 11/30/23 09:41 Pulse Ox 99 11/30/23 09:41 Oxygen Delivery Method Room Air 11/30/23 09:41 BMI result Body Mass Index 49.2 Const General: cooperative, healthy appearing and no acute distress Resp Effort & Inspection: normal respiratory effort Skin Other: three small shards of metal noted in palmar aspect of left hand - one at tip of middle finger, one at base of middle finger, one at base of index finger. Small areas of erythema surrounding each metal shard. Extrem General: Yes capillary refill normal and Yes no clubbing, cyanosis or edema Psych Appearance: grossly normal Mental Status: mental status grossly normal Office Procedures Foreign Body Removal Details: 25g needle utilized to remove 3 metal foreign bodies from left hand. Betadine prep used. No bleeding or pain following procedure. Patient tolerated well. [id number] body removal, simple Additional procedure code (CPT) needed Assessment & Plan Assessment & Plan (1) Puncture wound, hand: Code(s): S61.439A - Puncture wound without foreign body of unspecified hand, initial encounter Qualifiers: Encounter type: initial encounter Foreign body presence: with foreign body Laterality: left Qualified Code(s): S61.442A - Puncture wound with foreign body of left hand, initial encounter Plan: 25g needle utilized to remove 3 metal foreign bodies from left hand - tip of middle finger, base of middle finger, base of pointer finger. Betadine prep used. No bleeding or pain following procedure. Patient tolerated well. Advised to keep area clean and dry, and return to clinic if she develops any pain, redness, inflammation, or signs of infection. TDAP vaccine given. (2) Immunization due: Code(s): Z23 - Encounter for immunization Plan: TDAP as above. Orders: Orders TDaP Immunization Today S61.431A - Puncture wound without foreign body of unspecified hand, initial encounter, Z23 - Encounter for immunization Medications: New Boostrix Tdap (diphth,pertus(acell),tetanus) 0.5 mL IM ONCE 0.5 mL 0RF NS S61.431I - Puncture wound without foreign body of unspecified hand, initial encounter, Z23 - Encounter for immunization Coding Level of Care Code Est Pt Level 4 (90474) Diagnoses Puncture wound of left hand with foreign body, initial encounter S61.240A Encounter type: initial encounter Foreign body presence: with foreign body Laterality: left Immunization due Z23 CPT Codes Details - Foreign body simple: [id number] body removal, simple ([id number])
== END 2023-11-30 10:29 | disposition home or self-care (01) ==
PROVIDERS: PCP Internal Medicine; Visit Provider Nurse Practitioner Family
DX: S61.442A Puncture wound with foreign body of left hand, initial encounter (principal); Z23 Encounter for immunization; S61.439A Puncture wound without foreign body of unspecified hand, initial encounter
CPT/HCPCS: 10120; 90471; 90715; 99214

== ENCOUNTER 2023-12-07 08:54 | Outpatient (AMB) | payer OTHER, SELFPAY ==
[2023-12-07 09:53] VITALS: BP 128/88; BMI 49.6
--- NOTE | 2023-12-07 09:53 | A.OFFVIS_ITS ---
Intake Vital Signs 12/07/23 09:53 Height 5 ft 3 in Weight 280 lb BMI 49.6 BP 128/88 Blood Pressure Location Lt brachial Position Sitting Intake Visit Reasons: INVENTORY TAKER annual exam/DO NOT RS Radiation Monitor Required: Yes Radiation Monitor Language: Clinical Research Monitor Name: Lizzette LEES Information Interpreted: non-clinical & clinical Solid Plasterer: Solid Plasterer Present Accompanied by: Self / Same As Patient Allergies pollard Allergy (Intermediate, Verified 12/07/23 09:54) Itching raspberry Allergy (Intermediate, Verified 12/07/23 09:54) Itching No Known Drug Allergies Allergy (Unknown, Verified 12/07/23 09:54) Unknown Is last menstrual period known: No Post menopausal: No Patient : No HPI HPI Comments History of Present Illness Details Presenting for annual exam. No complaints. Last Pap/HPV was negative in 11/22 Last Mammogram was BI-RADS 1 in 12/25 The patient has a scheduled appointment in few months for screening colonoscopy PFSH Medical History Kidney stone on left side Nephrolithiasis Morbid obesity with BMI of 45.0-49.9, adult Urinary tract infection Blurry vision, left eye Cervical spine pain Internal and external hemorrhoids without complication Hemorrhoids Renal calculi BMI 45.0-49.9, adult Thiamine deficiency Dyslipidemia GERD (gastroesophageal reflux disease) Hematuria Thickened endometrium Abnormal uterine bleeding (AUB) Pure hypercholesterolemia Insomnia Kidney stone Ectopic Surgical History Hx of lithotripsy H/O laparoscopy Hx of section Hx of cholecystectomy Hx of laparoscopic gastric banding Family History Mother Osteoporosis Glaucoma Migraine Ovarian cancer Uterine cancer Sister Uterine cancer Maternal Grandfather Diabetes mellitus Paternal Grandmother Diabetes mellitus HTN (hypertension) Maternal Uncle Throat cancer Father HIV (human immunodeficiency virus infection) Sister Heart abnormality Sister Heart abnormality Epilepsy Brother No problems noted. Son No problems noted. Family/Other Substance use disorder Social History Household Members: Children Housing: Apartment Do you presently have visiting nurse or other home services: No Alcohol intake: never Patient Tobacco Use Status: Never used Tobacco e-Cigarette/Vaping Use: Never Used Second Hand Smoke Exposure: Yes Patient : No service: No 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al status: employed 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al exposures/hazards: No Gender identity: Female Cognitive needs: No Hearing needs: No Vision needs: Yes (glasses) Female Reproductive History Menstrual Age of Menarche: 14 Duration of menses: 3-5 days Total pregnancies: 2 Full term: 1 Number of Living Children: 1 Ectopics: 1 Date of last pap smear: 11/25/20 History of abnormal pap smear: No History of STI: No Date of Mammogram: 12/16/22 History of abnormal mammogram: No Review of Systems Const All systems reviewed & are unremarkable except as noted in HPI and below Card Reports as per HPI Resp Reports as per HPI GI Reports as per HPI and Reports no additional complaints Reports as per HPI Physical Exam Vital Signs: Last Vital Signs BP 128/88 12/07/23 09:53 BMI result Body Mass Index 49.6 Const General: cooperative, healthy appearing and comfortable Chest Chest palpation & inspection: normal inspection of the chest and normal palpation of entire chest wall Breast/axilla inspection: normal inspection of the breasts and normal inspection of the axillae Breast/axilla palpation: normal palpation of the breasts, normal palpation of the axillae and no axillary lymphadenopathy Resp Effort & Inspection: normal respiratory effort Auscultation: clear to auscultation bilaterally Percussion: percussion normal Cardio Palpation: normal PMI Rate: regular rate Rhythm: regular rhythm Heart sounds: no murmurs and no rubs Peripheral pulses: Peripheral pulses 2+ throughout GI Inspection: Yes normal to inspection Palpation (GI): Soft to palpation, nontender, no guarding, not rigid and No hepatosplenomegaly present Percussion: Yes normal to percussion Auscultation: normal bowel sounds Rectal Exam - Female: deferred General: Yes bladder normal to palpation External Female Exam: No lesion Speculum Exam - Vagina: normal appearance of the vagina, normal palpation, normal vaginal discharge and not erythematous Speculum Exam - Cervix: normal appearance of the cervix and normal palpation Bimanual exam- vagina & uterus: normal bimanual exam, normal palpation, uterine size normal, bladder normal to palpation, consistency normal and normal palpation Bimanual Exam- Adnexa, other: normal adnexae, no masses and no tenderness Assessment & Plan Assessment & Plan (1) Well woman exam: Code(s): Z01.419 - Encounter for gynecological examination (general) (routine) without abnormal findings Plan: Co testing not indicated this year. Counseled the patient about the recommended dietary allowance of 1200 mg of Calcium & 600 IU of vitamin D. Mammogram ordered. The patient has a scheduled appointment in few months for a screening colonoscopy . The patient was instructed to perform monthly self-breast exams and schedule annual exam in a year. All questions answered and the patient verbalized understanding. Orders: Orders MM tomosynthesis screening BI Today Z12.31 - Encounter for screening mammogram for malignant neoplasm of breast Referrals Gastroenterology Referral Z12.11 - Encounter for screening for malignant neoplasm of colon Coding Level of Care Code Est Pt Prev Care 40-64y(12453) Diagnoses Well woman exam Z01.419
== END 2023-12-07 10:13 | disposition home or self-care (01) ==
LOC: HO.HWS 08:54
PROVIDERS: PCP Internal Medicine; Visit Provider Obstetrics & Gynecology
DX: Z01.419 Encounter for gynecological examination (general) (routine) without abnormal findings (principal)
CPT/HCPCS: 99396

== ENCOUNTER → 2023-12-07 08:54 | Outpatient (BNVA) | payer OTHER, SELFPAY | PROVIDERS: PCP Internal Medicine; Visit Provider Obstetrics & Gynecology | DX: Z01.419 Encounter for gynecological examination (general) (routine) without abnormal findings (principal) | CPT/HCPCS: 99396 ==

== ENCOUNTER 2023-12-20 10:23 | Outpatient (REF) | payer OTHER, SELFPAY ==
--- NOTE | ~2023-12-20 | US_ITS ---
EXAMINATION: US RETROPERITONEAL COMPLETE (RENAL) CLINICAL INFORMATION: Other microscopic hematuria. COMPARISON: CT abdomen and pelvis 08/31/2023. X-ray abdomen KUB 08/14/2023. Renal ultrasound 06/17/2022 and 10/07/2021. TECHNIQUE: Real-time imaging of the kidneys and bladder. FINDINGS: RIGHT KIDNEY: 11.3 x 4.7 x 5.8 cm (SAG x AP x TRV). The kidney is normal in size, contour, and echogenicity. Renal cortical thickness is normal. No focal parenchymal lesions or hydronephrosis. At the upper pole, a 4 mm nonobstructing calculus is seen. LEFT KIDNEY: 12.6 x 4.8 x 5.3 cm (SAG x AP x TRV). The kidney is normal in size, contour, and echogenicity. Renal cortical thickness is normal. No focal parenchymal lesions or hydronephrosis. At the lower pole, a 7 mm and 7 mm nonobstructing calculi are seen. BLADDER: Well distended and normal. Bilateral ureteral jets are demonstrated. Prevoid bladder volume is 184 mL. Postvoid bladder volume is 13 mL. US/US retroperitoneal comp IMPRESSION: Nonobstructing bilateral renal calculi are seen, as detailed. There is no hydronephrosis.
== END 2023-12-20 10:24 | disposition home or self-care (01) ==
LOC: HO.US 10:23
PROVIDERS: PCP Internal Medicine; Visit Provider Nurse Practitioner Family
DX: N20.0 Calculus of kidney (principal); R31.29 Other microscopic hematuria
CPT/HCPCS: 76770

== ENCOUNTER 2024-01-04 08:58 | Outpatient (AMB) | payer OTHER, SELFPAY ==
--- NOTE | 2024-01-04 07:46 | A.OFFVIS_ITS ---
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 She previously had complications with UTI in fungemia requiring admission and was evaluated by Infectious Disease. I have reviewed 24 hour urine collection and renal ultrasound. She states she is doing okay denies renal colic hematuria. Discussed 24 hour urine results: Total volume 1.18 mL, Calcium 235 mg; Oxalate 32 mg, Sodium 204, Citrate 839 mg. Instructed on importance of fluid intake, Low oxalate diet, low sodium diet. Reviewed renal ultrasound 12/20/2023 again notes bilateral nonobstructing renal calculi. Discussed plan Refer to nephrology due to hypercalciuria. Will monitor kidney stones follow-up in 6 months KUB prior. Reviewed chart: 10/26/23--Adela is a 47-year-old female who presents today, she was last evaluated as an inpatient she was admitted for UTI sepsis from fungemia. She was evaluated by Infectious Disease. During hospitalization ureteral stent was removed. She states that she has been doing well she denies dysuria she denies urinary incontinence. I reviewed with the patient that the CT imaging that was done during the inpatient visit on 08/31/2023 noted 2 stone fragments in the left lower pole kidney 3 mm in 6 mm. Plan discussed- Monitor Kidneys renal sono, KUB, 24 hr urine Cont Vit B6 100 mg daily 08/31/23--CTAP: KIDNEYS AND URETERS: The kidneys are normal in size, shape, and attenuation. There is 3 mm and 6 mm radiopaque calculi adjacent to each other in lower pole calyx left kidney without caliectasis. 07/26/2023-- She is followed today s/p ureteroscopy laser lithotripsy stent insertion. Kub Xray I have discussed with the patient that the KUB X-ray is not officially read; however, on my inspection there may be a calcification along the left ureteral stent as well as few calcifications over the left lower pole of the left kidney. I have discussed repeat ureteroscopy and retrograde with stent removal and possible lithotripsy, stone extraction as needed. Cystoscopy not done today. 07/13/2023--She presents today for an evaluation of kidney stones. PMH of obesity, kidney stones, anxiety, HLD, prediabetes, recurrent UTI, and GERD The patient is a [place]ian speaking female. Certified certified court/medical interpreter was present during the Tele-health visit. I reviewed the CAT scan of the abdomen/pelvis results from 07/09/2023 revealed a 6 mm right proximal ureteral stone and bilateral non obstructing kidney calculi. Patient states that she has never passed a kidney stone in the past. She states that she has had kidney stones in the past. Patient has had prior procedures include shock wave lithotripsy as well as previous stent for the kidney stones. 07/26/2023: Plan:Repeat ureteroscopy and retrograde with stent removal and possible lithotripsy, stone extraction was discussed to be scheduled. Ordered Veiscare 10 mg for her bladder spasms. 01/04/24--plan Refer to nephrology due to hypercalciuria. Will monitor kidney stones follow-up in 6 months KUB prior. Continue vitamin B6 100 mg [facility] Medical History Kidney stone on left side Nephrolithiasis Morbid obesity with BMI of 45.0-49.9, adult Urinary tract infection Blurry vision, left eye Cervical spine pain Internal and external hemorrhoids without complication Hemorrhoids Renal calculi BMI 45.0-49.9, adult Thiamine deficiency Dyslipidemia GERD (gastroesophageal reflux disease) Hematuria Thickened endometrium Abnormal uterine bleeding (AUB) Pure hypercholesterolemia Insomnia Kidney stone Ectopic Surgical History Hx of lithotripsy H/O laparoscopy Hx of section Hx of cholecystectomy Hx of laparoscopic gastric banding Family History Mother Osteoporosis Glaucoma Migraine Ovarian cancer Uterine cancer Sister Uterine cancer Maternal Grandfather Diabetes mellitus Paternal Grandmother Diabetes mellitus HTN (hypertension) Maternal Uncle Throat cancer Father HIV (human immunodeficiency virus infection) Sister Heart abnormality Sister Heart abnormality Epilepsy Brother No problems noted. Son No problems noted. Family/Other Substance use disorder Social History Household Members: Children Housing: Apartment Do you presently have visiting nurse or other home services: No Alcohol intake: never Patient Tobacco Use Status: Never used Tobacco e-Cigarette/Vaping Use: Never Used Second Hand Smoke Exposure: Yes service: No 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al status: employed 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al exposures/hazards: No Gender identity: Female Cognitive needs: No Hearing needs: No Vision needs: Yes (glasses) Female Reproductive History Menstrual Age of Menarche: 14 Review of Systems Const All systems reviewed & are unremarkable except as noted in HPI and below Reports no additional complaints Eyes Reports no additional complaints ENT Reports no additional complaints Card Reports no additional complaints Resp Reports no additional complaints GI Reports no additional complaints Reports as per HPI Musc Reports no additional complaints Skin/Breast Reports system reviewed and no additional complaints, except as documented Neuro Reports no additional complaints Psych Reports no additional complaints Endo Reports no additional complaints Charan/Lymph Reports no additional complaints Aller/Immun Reports no additional complaints Results AMB Urinalysis, Automated UA Leukoctes 0 Sachin/uL Last Edit by NABEEL Gunderson on 01/04/24 09:50 UA Nitrite Negative Last Edit by NABEEL Gunderson on 01/04/24 09:50 UA Urobilinogen 0.2 mg/dL Last Edit by NABEEL Gunderson on 01/04/24 09:5 0 UA Protein 0 mg/dL Last Edit by NABEEL Gunderson on 01/04/24 09:50 UA pH 6.0 Last Edit by NABEEL Gunderson on 01/04/24 09:50 UA Blood 0 Bigg/uL Last Edit by NABEEL Gunderson on 01/04/24 09:50 UA Specific [place] 1.025 Last Edit by NABEEL Gunderson on 01/04/24 09: 50 UA Ketone Negative Last Edit by NABEEL Gunderson on 01/04/24 09:50 UA Bilirubin 0 mg/dL Last Edit by NABEEL Gunderson on 01/04/24 09:50 UA Glucose 0 mg/dL Last Edit by NABEEL Gunderson on 01/04/24 09:50 Results Reviewed Results Reviewed: Laboratory Last Values Urine pH (Auto) 6.0 01/04/24 09:48 Specific [place] (Auto) 1.025 01/04/24 09:48 Urine Protein (Auto) 0 mg/dL 01/04/24 09:48 Glucose (UA)(Auto) 0 mg/dL 01/04/24 09:48 Urine Ketones (Auto) Negative 01/04/24 09:48 Urine Blood (Auto) 0 Bigg/uL 01/04/24 09:48 Urine Nitrite (Auto) Negative 01/04/24 09:48 Urine Bilirubin (Auto) 0 mg/dL 01/04/24 09:48 Urine Urobilinogen (Auto) 0.2 mg/dL 01/04/24 09:48 Leukocyte Esterase (Auto) 0 Sachin/uL 01/04/24 09:48 Date of Service: 12/20/23 EXAMINATION: US RETROPERITONEAL COMPLETE (RENAL) CLINICAL INFORMATION: Other microscopic hematuria. COMPARISON: CT abdomen and pelvis 08/31/2023. X-ray abdomen KUB 08/14/2023. Renal ultrasound 06/17/2022 and 10/07/2021. TECHNIQUE: Real-time imaging of the kidneys and bladder. FINDINGS: RIGHT KIDNEY: 11.3 x 4.7 x 5.8 cm (SAG x AP x TRV). The kidney is normal in size, contour, and echogenicity. Renal cortical thickness is normal. No focal parenchymal lesions or hydronephrosis. At the upper pole, a 4 mm nonobstructing calculus is seen. LEFT KIDNEY: 12.6 x 4.8 x 5.3 cm (SAG x AP x TRV). The kidney is normal in size, contour, and echogenicity. Renal cortical thickness is normal. No focal parenchymal lesions or hydronephrosis. At the lower pole, a 7 mm and 7 mm nonobstructing calculi are seen. BLADDER: Well distended and normal. Bilateral ureteral jets are demonstrated. Prevoid bladder volume is 184 mL. Postvoid bladder volume is 13 mL. IMPRESSION: Nonobstructing bilateral renal calculi are seen, as detailed. There is no hydronephrosis. Date of Service: 08/31/23 EXAMINATION: CT ABDOMEN AND PELVIS WITHOUT AND WITH CONTRAST CLINICAL INFORMATION: 4 anemia. Evaluate for stone. COMPARISON: None available. TECHNIQUE: Multidetector volumetric imaging was performed of the abdomen and pelvis before and after the IV administration of 85 mL of Omnipaque 350 intravenous contrast. Sagittal and coronal reformatted images were obtained on the technologist's workstation. This CT examination was performed using dose optimization techniques as appropriate, variously including the following: *Automated exposure control *Adjustment of mA and/or kV according to patient size (this includes techniques or standardized protocols for targeted exams where dose is matched to indication/reason for exam; i.e. extremities or head) *Use of iterative reconstruction technique DLP: 1737 mGy-cm FINDINGS: LUNG BASES: There is platelike atelectasis right lower lobe. Heart size is normal. LIVER, GALLBLADDER, AND BILIARY TREE: The liver is normal in size, shape, and attenuation. No focal hepatic lesion or biliary ductal dilatation is present. The gallbladder has been surgically removed. PANCREAS: Unremarkable SPLEEN: Unremarkable ADRENAL GLANDS: Unremarkable KIDNEYS AND URETERS: The kidneys are normal in size, shape, and attenuation. There is 3 mm and 6 mm radiopaque calculi adjacent to each other in lower pole calyx left kidney without caliectasis. There is a left ureteral stent with no radiopaque calculi seen adjacent or surrounding the stent in the kidney pelvis or the ureter.. Postcontrast both kidney nephrograms are symmetrical in size. Small cortical defect upper pole likely scarring. No enhancing renal mass, cyst or hydronephrosis seen. BLADDER: The bladder is nondistended and appears unremarkable. GASTROINTESTINAL TRACT: Scattered stool and gas is seen throughout the colon without significant distention. The small bowel loops are normal caliber. Appendix is not visualized no free air or free fluid. ABDOMINAL WALL: There is no evidence of hiatal hernia. There are punctate gas seen within the anterior abdominal wall likely related to 2 subcutaneous injections. LYMPH NODES: There are multiple small left para-aortic lymph nodes visualized with largest nodes measuring 1.4 and 1.7 cm. VASCULAR: Unremarkable PELVIC VISCERA: The uterus is anteverted with an IUD well located within endometrial canal. OSSEOUS STRUCTURES: No aggressive lytic or sclerotic process seen. IMPRESSION: 1. Nonobstructive radiopaque calculi lower pole left kidney. There is a left ureteral stent with no radiopaque calculi seen adjacent to or surrounding the stent in the kidney pelvis or the ureter. 2. Mild constipation. Assessment & Plan Assessment & Plan (1) Kidney stone on left side: Code(s): N20.0 - Calculus of kidney Category: Medical (2) Bilateral kidney stones: Code(s): N20.0 - Calculus of kidney Category: Medical (3) Hypercalcinuria: Code(s): R82.994 - Hypercalciuria Category: Medical (4) History of pyelonephritis: Code(s): Z87.448 - Personal history of other diseases of urinary system Category: Medical Plan Refer to nephrology due to hypercalciuria. Will monitor kidney stones follow-up in 6 months KUB prior. Continue vitamin B6 100 mg Orders: Orders AMB Urinalysis Automated Today Z13.9 - Encounter for screening, unspecified XR KUB Today N20.0 - Calculus of kidney Referrals Nephrology Referral N20.0 - Calculus of kidney, R82.994 - Hypercalciuria Patient Instructions: The patient had an opportunity to ask questions regarding treatment plan. The patient expressed understanding and agreement with the above treatment plan. The patient is aware they should contact our office by phone for worsening of their current condition or the appearance of new symptoms. Compliance is encouraged with any medications and followup testing that is ordered. It is a privilege to be allowed the opportunity to participate in the urologic care of your patient. If you have any questions or concerns regarding treatment for the above conditions please do not hesitate to contact me. The office telephone contact is [phone]. This note is constructed in part using voice recognition software. While every effort has been made to ensure accuracy embalmer apprentice errors may have been included. Yours sincerely, Kareem Solorio MD Coding Level of Care Code Est Pt Level 4 (12918) Complex EM visit Add On G2211 Diagnoses Kidney stone on left side N20.0 Bilateral kidney stones N20.0 Hypercalcinuria R82.994 History of pyelonephritis Z87.448
== END 2024-01-04 10:16 | disposition home or self-care (01) ==
PROVIDERS: PCP Internal Medicine; Visit Provider Urology
DX: N20.0 Calculus of kidney (principal); R82.994 Hypercalciuria; Z87.448 Personal history of other diseases of urinary system; Z13.9 Encounter for screening, unspecified
CPT/HCPCS: 99214; G2211

== ENCOUNTER → 2024-01-04 08:58 | Outpatient (BNVA) | payer OTHER, SELFPAY | PROVIDERS: PCP Internal Medicine; Visit Provider Urology | DX: N20.0 Calculus of kidney (principal); R82.994 Hypercalciuria; Z87.448 Personal history of other diseases of urinary system | CPT/HCPCS: 81003; 99212 ==

== ENCOUNTER 2024-01-05 10:21 | Outpatient (REF) | payer OTHER, SELFPAY | END 2024-01-05 10:22 | disposition home or self-care (01) | LOC: HO.MAMMO 10:21 | PROVIDERS: PCP Internal Medicine; Visit Provider Internal Medicine | DX: Z12.31 Encounter for screening mammogram for malignant neoplasm of breast (principal) | CPT/HCPCS: 77063; 77067 ==

== ENCOUNTER → 2024-01-05 12:00 | Outpatient (BNV) | payer OTHER, SELFPAY | PROVIDERS: PCP Internal Medicine; Visit Provider Radiology Diagnostic Radiology | DX: Z12.31 Encounter for screening mammogram for malignant neoplasm of breast (principal) | CPT/HCPCS: 77063; 77067 ==

== ENCOUNTER 2024-01-08 08:55 | Outpatient (AMB) | payer OTHER, SELFPAY ==
[2024-01-08 09:16] VITALS: BP 112/86; PULSE 87; O2SAT 97; BMI 49.1
--- NOTE | 2024-01-08 09:16 | HO.NEPHOV ---
Vital Signs 01/08/24 09:16 Height 5 ft 3 in Weight 277 lb BMI 49.1 BP 112/86 Blood Pressure Location Lt brachial Position Sitting Pulse 87 Pulse Source Pulse Oximeter Pulse Oximetry (%) 97 Oxygen Delivery Method Room Air Intake Visit Reasons: Hypercalciuria/ Confirmed A R Specialist Required: No Allergies pollard Allergy (Intermediate, Verified 01/08/24 09:18) Itching raspberry Allergy (Intermediate, Verified 01/08/24 09:18) Itching No Known Drug Allergies Allergy (Unknown, Verified 01/08/24 09:18) Unknown HPI Comments Details: 48-year-old pleasant woman with multiple renal stones in the setting of diabetes mellitus. She had a left renal stent. She had a complicated UTI with fungal infection. The stent was removed. She underwent a 24 urine collection which showed mild hypercalciuria and hence the referral for management of nephrolithiasis. She has on a regular diet. The 24 urine collection showed a volume of 1180 mL. Today she has no specific complaints like dysuria urgency or hematuria. Or loin pain No shortness of breath cough or expectoration. No edema PFSH Medical History Kidney stone on left side Nephrolithiasis Morbid obesity with BMI of 45.0-49.9, adult Urinary tract infection Blurry vision, left eye Cervical spine pain Internal and external hemorrhoids without complication Hemorrhoids Renal calculi BMI 45.0-49.9, adult Thiamine deficiency Dyslipidemia GERD (gastroesophageal reflux disease) Hematuria Thickened endometrium Abnormal uterine bleeding (AUB) Pure hypercholesterolemia Insomnia Kidney stone Ectopic Surgical History Hx of lithotripsy H/O laparoscopy Hx of section Hx of cholecystectomy Hx of laparoscopic gastric banding Family History Mother Osteoporosis Glaucoma Migraine Ovarian cancer Uterine cancer Sister Uterine cancer Maternal Grandfather Diabetes mellitus Paternal Grandmother Diabetes mellitus HTN (hypertension) Maternal Uncle Throat cancer Father HIV (human immunodeficiency virus infection) Sister Heart abnormality Sister Heart abnormality Epilepsy Brother No problems noted. Son No problems noted. Family/Other Substance use disorder Social History Household Members: Children Housing: Apartment Do you presently have visiting nurse or other home services: No Alcohol intake: never Patient Tobacco Use Status: Never used Tobacco e-Cigarette/Vaping Use: Never Used Second Hand Smoke Exposure: Yes service: No 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al status: employed 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al exposures/hazards: No Gender identity: Female Cognitive needs: No Hearing needs: No Vision needs: Yes (glasses) Female Reproductive History Menstrual Age of Menarche: 14 Physical Exam Vital Signs: Last Vital Signs Pulse 87 01/08/24 09:16 BP 112/86 01/08/24 09:16 Pulse Ox 97 01/08/24 09:16 Oxygen Delivery Method Room Air 01/08/24 09:16 BMI result Body Mass Index 49.1 Const General: comfortable Nutritional Appearance: well nourished Orientation/consciousness: patient oriented x3 HEENT Head: No normal to inspection Mouth: moist mucous membranes Neck Neck: Yes supple and Yes no JVD Resp Auscultation: clear to auscultation bilaterally, no rales and rub present Cardio Jugular venous distension: no JVD Palpation: no palpable S3 and no palpable S4 Heart sounds: no rubs GI Palpation (GI): Soft to palpation and nontender Percussion: No Fluid wave present General: Yes no CVA tenderness Back/Spine/Pelvis Back: no CVA tenderness Skin General skin exam: no rashes or lesions noted Neuro General: patient oriented x3 Extrem General: Yes no pedal edema and No clubbing Results Reviewed Results Reviewed: December 2023 RIGHT KIDNEY: 11.3 x 4.7 x 5.8 cm (SAG x AP x TRV). The kidney is normal in size, contour, and echogenicity. Renal cortical thickness is normal. No focal parenchymal lesions or hydronephrosis. At the upper pole, a 4 mm nonobstructing calculus is seen. LEFT KIDNEY: 12.6 x 4.8 x 5.3 cm (SAG x AP x TRV). The kidney is normal in size, contour, and echogenicity. Renal cortical thickness is normal. No focal parenchymal lesions or hydronephrosis. At the lower pole, a 7 mm and 7 mm nonobstructing calculi are seen. BLADDER: Well distended and normal. Bilateral ureteral jets are demonstrated. Prevoid bladder volume is 184 mL. Postvoid bladder volume is 13 mL. US/US retroperitoneal comp IMPRESSION: Nonobstructing bilateral renal calculi are seen, as detailed. There is no hydronephrosis. Nephrology Results: Sodium 142 mmol/L (135-145) 10/09/23 Potassium 4.0 mmol/L (3.3-5.1) 10/09/23 Chloride 107 mmol/L (96-108) 10/09/23 Carbon Dioxide 27 mmol/L (22-29) 10/09/23 BUN 13 mg/dL (9-16) 10/09/23 Creatinine 1.36 mg/dL (0.5-1.4) 10/09/23 Calcium 9.6 mg/dL (8.4-10.2) 10/09/23 Urine Creatinine 161.01 mg/dL 10/09/23 Assessment & Plan Assessment & Plan (1) Bilateral kidney stones: Code(s): N20.0 - Calculus of kidney Category: Medical (2) CKD (chronic kidney disease): Code(s): N18.9 - Chronic kidney disease, unspecified Category: Medical Plan 48-year-old woman with multiple renal stones. Currently she has no evidence of any obstruction. She had a left ureteral stent which was complicated with a fungal UTI. The left stent has been removed. Twenty-four urine collection in November of 2023 revealed mild hypercalciuria with increased uric acid excretion. Serum calcium was normal. She has mild CKD with a EGFR of 47 mL/minute in October 2023. Baseline serum creatinine is around 1.1. Recent creatinine was 1.36. I suspect she had a component of MIRI. We shall recheck this. Plan She should stay on a low-sodium diet I have discussed this with her. She is to increase her fluid intake to maintain a urine output of at least 2 L per 24 hours. Increase citrate intake. Repeat 24 urine collection in the next 4-6 weeks to quantify urinary calcium excretion along with sodium and volume. Ordered phosphorus and PTH levels along the serum calcium and uric acid. After the baseline workup is completed she returned to the office in the next 6 weeks Orders: Orders Uric Acid Today N20.0 - Calculus of kidney Parathyroid Hormone Intact Today N20.0 - Calculus of kidney Sodium, 24Hr Urine Group 1 Month N20.0 - Calculus of kidney Uric Acid, 24Hr Urine Group 1 Month N20.0 - Calculus of kidney Comprehensive Met. Panel Today N18.9 - Chronic kidney disease, unspecified, N20.0 - Calculus of kidney Phosphorus Today N20.0 - Calculus of kidney Creatinine, 24 Hr Group 1 Month N20.0 - Calculus of kidney Calcium, 24 Hr Ur 1 Month N20.0 - Calculus of kidney Citric Acid 24hr Urine 1 Month N20.0 - Calculus of kidney Oxalate, 24 Hr 1 Month N20.0 - Calculus of kidney Coding Level of Care Code New Pt Level 4 (18528) Diagnoses Bilateral kidney stones N20.0 CKD (chronic kidney disease) N18.9
== END 2024-01-08 09:52 | disposition home or self-care (01) ==
PROVIDERS: PCP Internal Medicine; Referring Provider Urology; Visit Provider Internal Medicine Hypertension Specialist
DX: N20.0 Calculus of kidney (principal); N18.9 Chronic kidney disease, unspecified
CPT/HCPCS: 99204

== ENCOUNTER → 2024-01-08 08:55 | Outpatient (BNVA) | payer OTHER, SELFPAY | PROVIDERS: PCP Internal Medicine; Referring Provider Urology; Visit Provider Internal Medicine Hypertension Specialist | DX: N18.9 Chronic kidney disease, unspecified (principal); N20.0 Calculus of kidney | CPT/HCPCS: 99202 ==

== ENCOUNTER → 2024-01-24 08:54 | Outpatient (REF) | payer OTHER, SELFPAY ==
--- NOTE | ~2024-01-24 | XR_ITS ---
EXAMINATION: XR ABDOMEN KUB CLINICAL INDICATION: Calculus of kidney COMPARISON: 12/20/2023 ultrasound abdomen, 08/23/2023 CT abdomen and pelvis, 08/14/2023 KUB TECHNIQUE: 3 AP views of the abdomen. FINDINGS: Nonobstructive bowel gas pattern. Dextroscoliosis of the thoracolumbar spine. IUD in the pelvis. Redemonstration of hardware overlying the upper abdomen. No definitive radiopaque renal calculi are appreciated, however, visualization of the kidneys is limited due to overlying bowel. Small rounded pelvic calcifications. XR/XR KUB IMPRESSION: 1. No definitive radiopaque renal calculi are appreciated, however, visualization of the kidneys is limited due to overlying bowel. 2. Small rounded pelvic calcifications.
--- NOTE | 2024-01-24 08:59 | ECG_ITS ---
Test Reason : CHEST PAIN Blood Pressure : / mmHG Vent. Rate : 075 BPM Atrial Rate : 075 BPM P-R Int : 204 ms QRS Dur : 090 ms QT Int : 372 ms P-R-T Axes : 044 -27 039 degrees QTc Int : 415 ms Normal sinus rhythm Normal ECG When compared with ECG of 13-AUG-2023 14:04, Vent. rate has decreased BY 46 BPM Criteria for Septal infarct are no longer Present Referred By: Milly Prince Electronically Signed By:MALLORIE RIVERO MD
[2024-01-24 10:40] LABS: Parathyroid Hormone Intact 176.4 pg/mL (8.7-77.1)
[2024-01-24 10:46] LABS: Albumin Level 3.8 g/dL (3.5-5.0); Alkaline Phosphatase 126 U/L (39-117); Anion Gap 13 (12-20); Aspartate Amino Transferase 21 U/L (5-31); Bilirubin Total 0.5 mg/dL (0.0-1.0); Blood Urea Nitrogen 11 mg/dL (9-16); Calcium 9.3 mg/dL (8.4-10.2); Carbon Dioxide 25 mmol/L (22-29); Chloride 106 mmol/L (96-108); Estimated Glomerular Filt Rate 58; Glucose Random 161 mg/dL (60-115); Phosphorus 2.4 mg/dL (2.7-4.5); Potassium 4.2 mmol/L (3.3-5.1); Sodium 140 mmol/L (135-145); Total Protein 7.2 g/dL (6.5-8.0); Uric Acid 5.2 mg/dL (2.4-5.7)
[2024-01-24 11:11] LABS: Alanine Aminotransferase 33 U/L (0-31)
== END ==
LOC: HO.CARD 08:54
PROVIDERS: Internal Medicine Hypertension Specialist; Absent Provider Internal Medicine; PCP Internal Medicine; Visit Provider Urology
DX: R07.9 Chest pain, unspecified (principal); N20.0 Calculus of kidney; N18.9 Chronic kidney disease, unspecified
CPT/HCPCS: 36415; 74018; 80053; 83970; 84100; 84550; 93005

== ENCOUNTER → 2024-01-24 08:59 | Outpatient (BNV) | payer OTHER, SELFPAY | PROVIDERS: Absent Provider Internal Medicine; PCP Internal Medicine; Visit Provider Internal Medicine Cardiovascular Disease | DX: R07.9 Chest pain, unspecified (principal) | CPT/HCPCS: 93010 ==

== ENCOUNTER 2024-01-31 08:55 | Outpatient (REF) | payer OTHER, SELFPAY ==
--- NOTE | ~2024-01-31 | FL_ITS ---
EXAMINATION: XR FLUOROSCOPY UPPER GI WITH AIR CLINICAL INFORMATION: Dysphagia. History of gastric band COMPARISON: None TECHNIQUE: Fluoroscopic air contrast upper GI examination was performed utilizing standard techniques with thin and thick barium and effervescent granules. Numerous spot images were obtained. FINDINGS: Lateral cine images of the oropharynx and hypopharynx demonstrate normal swallow mechanism with normal epiglottic inversion and soft palate elevation. No tracheal penetration, glottic or subglottic aspiration identified. No nasopharyngeal reflux present. Hypopharyngeal structures appear normal without evidence of mass or diverticulum. There was no significant cricopharyngeal achalasia. Dual and single contrast images of the esophagus demonstrate normal caliber, contour, and mucosal pattern. No evidence of stricture, mass, or ulcerations identified. Esophageal peristalsis was normal. No evidence of hiatus hernia identified. A small amount gastroesophageal reflux is in the distal esophagus. Dual contrast and single contrast images of the stomach demonstrate a normal contour. A gastric band is present which is causing a mild stricture, however, barium passes easily into the distal stomach. Phi angle with the spine is approximately 50 degrees, normal, with no definite band slippage present. No masses or ulcerations are seen. Contrast freely passed into the gastric antrum and duodenal bulb without delay. Single and air-contrast images of the duodenal bulb demonstrate no abnormality. The duodenal sweep has a normal appearance, course, and mucosal fold appearance. The imaged proximal jejunum has a normal fold pattern and caliber. FLUOROSCOPY TIME: 6 minutes 2 seconds Number of Spot Images: 14 Number of Cine: 15 DOSE AREA PRODUCT: [id number] uGy-m2 (microgray-meter squared) FL/FL barium swallow with air IMPRESSION: 1. Mild gastroesophageal reflux. 2. Status post gastric band procedure. No definite band slippage based on 50-degree phi angle. The band is causing a significant stricture, however, barium does pass into the distal stomach without high-grade delay. 3. 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 This procedure was performed by Sin Rutherford PA-C, and supervised by Dr. Bartlett
== END 2024-01-31 08:56 | disposition home or self-care (01) ==
LOC: HO.XRAY 08:55
PROVIDERS: PCP Internal Medicine; Visit Provider Internal Medicine
DX: R13.10 Dysphagia, unspecified (principal)
CPT/HCPCS: 74220; 74221

== ENCOUNTER → 2024-01-31 08:57 | Outpatient (BNV) | payer OTHER, SELFPAY | PROVIDERS: PCP Internal Medicine; Visit Provider Physician Assistant Surgical | DX: R13.10 Dysphagia, unspecified (principal) | CPT/HCPCS: 74246 ==

== ENCOUNTER 2024-02-05 08:43 | Day surgery (SDC) | payer OTHER, SELFPAY ==
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
[2024-02-05 09:35] VITALS: BMI 49.9
[2024-02-05 09:40] VITALS: BP 118/91; PULSE 91; RESP 18; TEMP 36.2; O2SAT 97; BMI 49.9
[2024-02-05 09:43] LABS: UPreg QC Valid YES
[2024-02-05 09:44] LABS: Urine Pregnancy NEGATIVE (NEGATIVE)
[2024-02-05 09:52] LABS: Glucose, Whole Blood 131 mg/dL (60-115)
[2024-02-05] MEDS: Lactated Ringers 1,000 ML 100 ML IVCONT (10:12)
--- NOTE | 2024-02-05 10:19 | MHC.SHP ---
Pre-Procedural Eval Section A - 24 Hr Update-Section A only Date of Service: 02/05/24 Section B - Complete if H&P > 30 days Chief Complaint: screening Relevant Family History (Specify if Yes): No Relevant Social History: None Present Medications: see Short Stay Collaborative assessment Medical History: Significant History (Nephrolithiasis Morbid obesity with BMI of 45.0-49.9, adult Kidney stone on left side Urinary tract infection Blurry vision, left eye Cervical spine pain Internal and external hemorrhoids without complication Hemorrhoids Renal calculi BMI 45.0-49.9, adult Thiamine deficiency Dyslipidemia GERD (gastr) History of Previous Operations: Relevant previous surgery/procedure and date(s) ( Hx of lithotripsy H/O laparoscopy Hx of section Hx of cholecystectomy Hx of laparoscopic gastric banding) Allergies: Allergies Allergy/AdvReac Type Severity Reaction Status Date / Time pollard Allergy Intermediate Itching Verified 01/08/24 09:18 raspberry Allergy Intermediate Itching Verified 01/08/24 09:18 No Known Drug Allergies Allergy Unknown Unknown Verified 01/08/24 09:18 Review of Systems Sugical H&P ROS: Negative: Constitution, Cardiovascular, Respiratory, Neurological, Psychiatric, Hem-Onc, Allergic/Immunologic, Gastrointestinal, Genitourinary, Musculoskeletal, Integumentary, Endocrine and Eyes/Ears/Nose/Throat Exam Surgical H&P Exam: Normal: HEENT, Normal: Heart, Normal: Lungs, Normal: Extremities, Normal: Abdomen, Normal: Skin and Normal: Neurological Plan Diagnosis/Plan: Unchanged I have reviewed the history and physical and performed a pertinent physical examination on my patient. No changes have occurred unless specified. Time Spent With Patient Time: Total time managing care of this patient today ____ minutes.
--- NOTE | 2024-02-05 10:49 | P.OPN-COLO_ITS ---
Colonoscopy Operative Note Operative Note Date of Service: 02/05/24 Narrative: Operative Information Procedure Description: Colonoscopy Indication: screening Anesthesia: MAC COLONOSCOPY Instrument: Olympus variable stiffness pediatric scope 190L Colonoscopy Monitoring: Vital signs and clinical assessment, continuous EKG monitoring, Pulse oximetry, Carbon Dioxide monitoring and blood pressure monitoring were done throughout the procedure. Colon withdrawal time was 9 minutes. Procedure: The patient was placed in the left lateral decubitis position and pre-procedure medications were administered. After a digital rectal examination of the ano-rectum, the video colonoscope was inserted into the rectum and advanced through the colon to the cecum/TI. The colonoscope was slowly withdrawn in a retrograde panoramic fashion and the colon mucosa was carefully examined including a retroflexed view of the rectum. Findings and interventions are described below. Procedure Difficulty: moderate Findings: Terminal Ileum-normal Cecum:normal Ascending Colon: normal Transverse Colon -normal Descending Colon:normal Sigmoid Colon: normal Rectum: Retroflexion with small internal hemorrhoids seen, grade I Anorectum - normal Intervention: none Colon preparation: [place] Bowel Preparation Scale Right colon; 1-2 Transverse colon: 2 Left colon; 2 (0 = Unprepared colon segment with mucosa not seen due to solid stool that cannot be cleared. 1 = Portion of mucosa of the colon segment seen, but other areas of the colon segment not well seen due to staining, residual stool and/or opaque liquid. 2 = Minor amount of residual staining, small fragments of stool and/or opaque liquid, but mucosa of colon segment seen well. 3 = Entire mucosa of colon segment seen well with no residual staining, small fragments of stool or opaque liquid) Impression and Post Procedure Diagnosis: internal hemorrhoids Plan: High fiber diet leaflet Avoid straining at stool, epsom salts and sitz bath, anusol supps or cream Repeat Colonoscopy in 5 years due to areas of fair prep on right side or earlier if clinically indicated Above findings were reviewed with the patient and relevant handouts were provided if indicated.
[2024-02-05 10:54] VITALS: BP 92/48; PULSE 79; RESP 16; TEMP 36.2; O2SAT 95
[2024-02-05 11:09] VITALS: BP 129/79; PULSE 78; RESP 18; O2SAT 95
[2024-02-05 11:24] VITALS: BP 117/80; PULSE 78; RESP 18; TEMP 36.4; O2SAT 98
== END 2024-02-05 12:18 | disposition home or self-care (01) ==
PROVIDERS: Nurse Practitioner; PCP Internal Medicine; Visit Provider Internal Medicine Gastroenterology
PROC: 0DJD8ZZ Inspection of Lower Intestinal Tract, Via Natural or Artificial Opening Endoscopic (ICD-10-PCS; CPT 45378; principal; 2024-02-05 12:20)
DX: Z12.11 Encounter for screening for malignant neoplasm of colon (principal); K64.0 First degree hemorrhoids
CPT/HCPCS: 45378; 81025; 82947; J2704

== ENCOUNTER → 2024-02-05 08:43 | Outpatient (BNV) | payer OTHER, SELFPAY | PROVIDERS: PCP Internal Medicine; Visit Provider Internal Medicine Gastroenterology | DX: Z12.11 Encounter for screening for malignant neoplasm of colon (principal); K64.0 First degree hemorrhoids | CPT/HCPCS: 45378 ==

== ENCOUNTER 2024-02-05 11:22 | Outpatient (REF) | payer OTHER, SELFPAY ==
[2024-02-05 12:25] LABS: Creatinine, mg/dL 62.06
[2024-02-05 12:28] LABS: Creatinine, 24Hr Urine 1.3 G/Day (1.0-2.0); Creatinine, mg/dL 61.21; Sodium 24 Hr Urine 157.5 mmol/Day (40-220); Total Volume 24 Hour Urine 2100 mL
[2024-02-05 12:45] LABS: Uric Acid, 24 Hr Urine 512.4 mg/Day (250-750); Uric Acid, mg/dL 24.4 mg/dL
[2024-02-08 17:58] LABS: Calcium, 24 Hr Urine 128 mg/24 h; Calcium/Creatinine Ratio 94 mg/g creat (30-275); Creatinine 24Hr Urine 1.37 g/24 h (0.50-2.15)
[2024-02-12 21:29] LABS: 24hr Urine Total Volume 2100 mL; Creatinine, 24U 1.37 g/24 h (0.50-2.15); Oxalic Acid 24 Urine 17.8 mg/24 h (3.6-38.0)
[2024-02-13 09:18] LABS: Citric Acid, 24hr Urine 233 mg/24 h (100-1300); Citric Acid/Creat Ratio 24U 178 mg/g creat (180-1070)
== END 2024-02-05 11:23 | disposition home or self-care (01) ==
LOC: HO.LNP 11:22
PROVIDERS: Visit Provider Internal Medicine Hypertension Specialist
DX: N20.0 Calculus of kidney (principal)
CPT/HCPCS: 82340; 82507; 83945; 84300; 84560

== ENCOUNTER 2024-02-19 08:53 | Outpatient (AMB) | payer OTHER, SELFPAY ==
[2024-02-19 09:17] VITALS: BP 112/88; PULSE 73; O2SAT 97
--- NOTE | 2024-02-19 09:17 | HO.NEPHOV ---
Vital Signs 02/19/24 09:17 Weight 280 lb BP 112/88 Blood Pressure Location Lt brachial Position Sitting Pulse 73 Pulse Source Pulse Oximeter Pulse Oximetry (%) 97 Oxygen Delivery Method Room Air Intake Visit Reasons: Hypercalciuria/ 6 weeks fu/ LVM Supervisor Stripping Required: Yes Supervisor Stripping Name: Zia [id number] Accompanied by: Self / Same As Patient Allergies pollard Allergy (Intermediate, Verified 02/19/24 09:19) Itching raspberry Allergy (Intermediate, Verified 02/19/24 09:19) Itching No Known Drug Allergies Allergy (Unknown, Verified 02/19/24 09:19) Unknown HPI Comments Details: 48-year-old pleasant woman with multiple renal stones in the setting of diabetes mellitus. She had a left renal stent. She had a complicated UTI with fungal infection. The stent was removed. She underwent a 24 urine collection which showed mild hypercalciuria and hence the referral for management of nephrolithiasis. She has on a regular diet. The 24 urine collection showed a volume of 1180 mL. Today she has no specific complaints like dysuria urgency or hematuria. Or loin pain No shortness of breath cough or expectoration. No edema PFSH Medical History Kidney stone on left side Nephrolithiasis Morbid obesity with BMI of 45.0-49.9, adult Urinary tract infection Blurry vision, left eye Cervical spine pain Internal and external hemorrhoids without complication Hemorrhoids Renal calculi BMI 45.0-49.9, adult Thiamine deficiency Dyslipidemia GERD (gastroesophageal reflux disease) Hematuria Thickened endometrium Abnormal uterine bleeding (AUB) Pure hypercholesterolemia Insomnia Kidney stone Ectopic Surgical History Hx of lithotripsy H/O laparoscopy Hx of section Hx of cholecystectomy Hx of laparoscopic gastric banding Family History Mother Osteoporosis Glaucoma Migraine Ovarian cancer Uterine cancer Sister Uterine cancer Maternal Grandfather Diabetes mellitus Paternal Grandmother Diabetes mellitus HTN (hypertension) Maternal Uncle Throat cancer Father HIV (human immunodeficiency virus infection) Sister Heart abnormality Sister Heart abnormality Epilepsy Brother No problems noted. Son No problems noted. Family/Other Substance use disorder Social History (Reviewed 02/19/24 @ 09:19 by KORTNEY Vogel Household Members: Children Housing: Apartment Do you presently have visiting nurse or other home services: No Alcohol intake: never Patient Tobacco Use Status: Never used Tobacco e-Cigarette/Vaping Use: Never Used Second Hand Smoke Exposure: Yes service: No 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al status: employed 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al exposures/hazards: No Gender identity: Female Cognitive needs: No Hearing needs: No Vision needs: Yes (glasses) Female Reproductive History Menstrual Age of Menarche: 14 Physical Exam Vital Signs: Last Vital Signs Pulse 73 02/19/24 09:17 BP 112/88 02/19/24 09:17 Pulse Ox 97 02/19/24 09:17 Oxygen Delivery Method Room Air 02/19/24 09:17 Const General: comfortable Nutritional Appearance: well nourished Orientation/consciousness: patient oriented x3 HEENT Head: No normal to inspection Mouth: moist mucous membranes Neck Neck: Yes supple and Yes no JVD Resp Auscultation: clear to auscultation bilaterally, no rales and rub present Cardio Jugular venous distension: no JVD Palpation: no palpable S3 and no palpable S4 Heart sounds: no rubs GI Palpation (GI): Soft to palpation and nontender Percussion: No Fluid wave present General: Yes no CVA tenderness Back/Spine/Pelvis Back: no CVA tenderness Skin General skin exam: no rashes or lesions noted Neuro General: patient oriented x3 Extrem General: Yes no pedal edema and No clubbing Results Reviewed Nephrology Results: Sodium 140 mmol/L (135-145) 01/24/24 Potassium 4.2 mmol/L (3.3-5.1) 01/24/24 Chloride 106 mmol/L (96-108) 01/24/24 Carbon Dioxide 25 mmol/L (22-29) 01/24/24 BUN 11 mg/dL (9-16) 01/24/24 Creatinine 1.02 mg/dL (0.5-1.4) 01/24/24 Calcium 9.3 mg/dL (8.4-10.2) 01/24/24 Phosphorus 2.4 mg/dL (2.7-4.5) L 01/24/24 PTH Intact 176.4 pg/mL (8.7-77.1) H 01/24/24 Assessment & Plan Assessment & Plan (1) History of pyelonephritis: Code(s): Z87.448 - Personal history of other diseases of urinary system Category: Medical (2) Bilateral kidney stones: Code(s): N20.0 - Calculus of kidney Category: Medical (3) CKD (chronic kidney disease): Code(s): N18.9 - Chronic kidney disease, unspecified Category: Medical Plan 48-year-old woman with multiple renal stones. Currently she has no evidence of any obstruction. She had a left ureteral stent which was complicated with a fungal UTI. The left stent has been removed. Twenty-four urine collection in November of 2023 revealed mild hypercalciuria with increased uric acid excretion. Repeat 24 hour urine Collection in February 2024 revealed normal calcium excretion with normal uric acid excretion. Urine volume was 2100 cc Citrate excretion was normal Serum calcium was normal. She has mild CKD with a EGFR of 47 mL/minute in October 2023. Baseline serum creatinine is around 1.1. Recent creatinine was 1.36. I suspect she had a component of MIRI. We shall follow Plan She should stay on a low-sodium diet I have discussed this with her. She is to increase her fluid intake to maintain a urine output of at least 2 L per 24 hours. Increase citrate intake. Encouraged to drink lemonade Orders: Orders Basic Metabolic Panel 6 Months Z - Personal history of other diseases of urinary system UA and rflx microscopic 6 Months Z - Personal history of other diseases of urinary system Coding Level of Care Code Est Pt Level 3 (62160) Diagnoses History of pyelonephritis Z Bilateral kidney stones N20.0 CKD (chronic kidney disease) N18.9
== END 2024-02-19 09:28 | disposition home or self-care (01) ==
PROVIDERS: PCP Internal Medicine; Visit Provider Internal Medicine Hypertension Specialist
DX: Z87.448 Personal history of other diseases of urinary system (principal); N20.0 Calculus of kidney; N18.9 Chronic kidney disease, unspecified
CPT/HCPCS: 99213

== ENCOUNTER → 2024-02-19 08:53 | Outpatient (BNVA) | payer OTHER, SELFPAY | PROVIDERS: PCP Internal Medicine; Visit Provider Internal Medicine Hypertension Specialist | DX: N20.0 Calculus of kidney (principal); N18.9 Chronic kidney disease, unspecified; Z87.448 Personal history of other diseases of urinary system | CPT/HCPCS: 99212 ==

== ENCOUNTER 2024-04-17 12:34 | Outpatient (AMB) | payer OTHER, SELFPAY ==
--- NOTE | 2024-04-17 12:36 | MHC.OFFWIV ---
Intake Vital Signs 04/17/24 12:37 Height 5 ft 3 in Weight 285 lb BMI 50.5 BP 132/90 H Blood Pressure Location Lt brachial Position Sitting Pulse 79 Pulse Source Pulse Oximeter Temp 98.2 F Temp Source Oral Pulse Oximetry (%) 98 Oxygen Delivery Method Room Air Intake Visit Reasons: EP- chest pain, coughing, 3 days Intake Note: Patient here for chest pain, coughing for about 3 days. Patient Tobacco Use Status: Never used Tobacco Allergies pollard Allergy (Intermediate, Verified 04/17/24 12:37) Itching raspberry Allergy (Intermediate, Verified 04/17/24 12:37) Itching No Known Drug Allergies Allergy (Unknown, Verified 04/17/24 12:37) Unknown Do you need a note to return to daycare/school/sports/work: No HPI HPI Comments History of Present Illness Details Patient is a 48-year-old female complaining of 3 days of cough and congestion and a sore throat. She denies any fevers, ear pain, headache, sinus pain or shortness of breath. She states she does not have any sick contacts at home. She is able to eat and drink normally. She denies a history of asthma. [facility] Medical History Kidney stone on left side Nephrolithiasis Morbid obesity with BMI of 45.0-49.9, adult Urinary tract infection Blurry vision, left eye Cervical spine pain Internal and external hemorrhoids without complication Hemorrhoids Renal calculi BMI 45.0-49.9, adult Thiamine deficiency Dyslipidemia GERD (gastroesophageal reflux disease) Hematuria Thickened endometrium Abnormal uterine bleeding (AUB) Pure hypercholesterolemia Insomnia Kidney stone Ectopic Surgical History Hx of lithotripsy H/O laparoscopy Hx of section Hx of cholecystectomy Hx of laparoscopic gastric banding Family History Mother Osteoporosis Glaucoma Migraine Ovarian cancer Uterine cancer Sister Uterine cancer Maternal Grandfather Diabetes mellitus Paternal Grandmother Diabetes mellitus HTN (hypertension) Maternal Uncle Throat cancer Father HIV (human immunodeficiency virus infection) Sister Heart abnormality Sister Heart abnormality Epilepsy Brother No problems noted. Son No problems noted. Family/Other Substance use disorder Social History Household Members: Children Housing: Apartment Do you presently have visiting nurse or other home services: No Alcohol intake: never Patient Tobacco Use Status: Never used Tobacco e-Cigarette/Vaping Use: Never Used Second Hand Smoke Exposure: Yes service: No 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al status: employed 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al exposures/hazards: No Gender identity: Female Cognitive needs: No Hearing needs: No Vision needs: Yes (glasses) Female Reproductive History Menstrual Age of Menarche: 14 Review of Systems Const All systems reviewed & are unremarkable except as noted in HPI and below Physical Exam Vital Signs: Last Vital Signs Temp 98.2 F 04/17/24 12:37 Pulse 79 04/17/24 12:37 BP 132/90 H 04/17/24 12:37 Pulse Ox 98 04/17/24 12:37 Oxygen Delivery Method Room Air 04/17/24 12:37 BMI result Body Mass Index 50.5 Const General: cooperative, healthy appearing, comfortable and no acute distress Orientation/consciousness: patient oriented x3 Limitations: no limitations HEENT Head: Yes normal to inspection Ears: hearing grossly normal bilaterally, external ears normal and TM's normal bilaterally General nose exam: Normal external nose present, Normal nares present and No nasal discharge present Face and sinus: Yes normal facial exam and Yes sinuses nontender Mouth: Normal oral and palatal mucosa present and moist mucous membranes Throat: Yes tonsils normal, Yes uvula midline and Yes posterior oropharynx abnormal (Erythema) Eyes General: appearance normal, both eyes and all related structures Neck Neck: Yes normal visual inspection Resp Effort & Inspection: normal respiratory effort, able to speak in complete sentences, Actively coughing, no respiratory distress, not tachypneic, no tripod positioning and no use of accessory muscles Auscultation: clear to auscultation bilaterally Cardio Rate: regular rate Rhythm: regular rhythm Heart sounds: normal S1 and S2 Skin General skin exam: no rashes or lesions noted Neuro General: patient oriented x3 Extrem General: Yes normal to inspection and Yes no clubbing, cyanosis or edema Assessment & Plan Assessment & Plan (1) URI (upper respiratory infection): Code(s): J06.9 - Acute upper respiratory infection, unspecified Qualifiers: URI type: unspecified viral URI Qualified Code(s): J06.9 - Acute upper respiratory infection, unspecified Plan: Tested for COVID, flu and RSV. Recommended staying hydrated and using [id number] medications to treat her symptoms. Plan See above Coding Level of Care Code Est Pt Level 3 (63841) Diagnoses Viral upper respiratory tract infection J06.9 URI type: unspecified viral URI
[2024-04-17 12:37] VITALS: BP 132/90; PULSE 79; TEMP 36.8; O2SAT 98; BMI 50.5
== END 2024-04-17 13:15 | disposition home or self-care (01) ==
PROVIDERS: PCP Internal Medicine; Visit Provider Physician Assistant
DX: J06.9 Acute upper respiratory infection, unspecified (principal)
CPT/HCPCS: 99213

== ENCOUNTER 2024-04-17 13:13 | Outpatient (REF) | payer OTHER, SELFPAY ==
[2024-04-17 16:58] LABS: Influenza A PCR NEGATIVE (Negative); Influenza B PCR NEGATIVE (Negative); Resp Syncy Virus RNA Qual PCR NEGATIVE (Negative); SARS COV2 PCR INHOUSE NEGATIVE (Negative)
== END 2024-04-17 13:14 | disposition home or self-care (01) ==
LOC: HO.LAB 13:13
PROVIDERS: Visit Provider Physician Assistant
DX: R06.9 Unspecified abnormalities of breathing (principal)
CPT/HCPCS: 0241U

== ENCOUNTER 2024-04-20 08:32 | Emergency (ER) | payer OTHER, SELFPAY ==
--- NOTE | ~2024-04-20 | XR_ITS ---
EXAMINATION: XR knee LT 4V, XR knee RT 4V CLINICAL INFORMATION: Reason for Exam pain, fall COMPARISON: Prior study 05/04/2023 TECHNIQUE: frontal, lateral, tunnel and patella sunrise views 4 views. Each side total of 8 views. FINDINGS: BONES: No fracture or dislocation is present. JOINTS: Joint spaces are preserved. Articular surfaces are smooth. There is a small left knee joint effusion. No joint effusion on the right side. Tibial plateaus and spines are intact. Surrounding soft tissue unremarkable. SOFT TISSUE: Normal XR/XR knee LT 4V IMPRESSION: 1. No fracture. 2. Small left knee joint effusion. 3. No joint effusion on the right.
--- NOTE | ~2024-04-20 | XR_ITS ---
EXAMINATION: XR knee LT 4V, XR knee RT 4V CLINICAL INFORMATION: Reason for Exam pain, fall COMPARISON: Prior study 05/04/2023 TECHNIQUE: frontal, lateral, tunnel and patella sunrise views 4 views. Each side total of 8 views. FINDINGS: BONES: No fracture or dislocation is present. JOINTS: Joint spaces are preserved. Articular surfaces are smooth. There is a small left knee joint effusion. No joint effusion on the right side. Tibial plateaus and spines are intact. Surrounding soft tissue unremarkable. SOFT TISSUE: Normal XR/XR knee RT 4V IMPRESSION: 1. No fracture. 2. Small left knee joint effusion. 3. No joint effusion on the right.
[2024-04-20 08:35] VITALS: BP 118/80; PULSE 82; RESP 16; TEMP 36.4; O2SAT 97; BMI 50.5
--- NOTE | 2024-04-20 09:22 | ED.GENADULT ---
HPI - General Adult General Chief complaint: Extremity Injury, Lower Stated complaint: ear and knee pain Time Seen by Provider: 04/20/24 09:00 Source: patient and RN notes reviewed Mode of arrival: ambulatory Limitations: no limitations History of Present Illness ED Provider: Mamie Mcgee PA-C HPI narrative: This is a 48-year-old female, with a history of diabetes, who presents emergency department with multiple complaints. Patient states that she has had a ongoing dry cough for the last 3 days. She went to an urgent care where she had a negative COVID test. She states that she also has had a sore throat over the last several days. She states [place] [employer] [place] where she slipped on a rock and her legs went out words, and she twisted her knees in the process. She landed onto her left leg. She states that she was able to walk after the accident however states that she has had pain in both of her knees. Pain worsens with flexion-extension as well as weight-bearing. She states that she is limping, otherwise able to weightbear. She states that her bilateral ears have been causing her to have pain as well which started this morning. She denies any fevers, chills, chest pain, shortness of breath, difficulty swallowing, abdominal pain, nausea, vomiting or diarrhea. She has not taken any medications to treat her current pain. No other complaints or concerns at this time. MD complaint: Knee pain, cough, ear pain Onset (ago): day(s) Relieving factors: immobilization Exacerbating factors: movement Associated symptoms: denies other symptoms Treatments prior to arrival: none Related Data Home Medications ?Medication ?Instructions ?Recorded ?Confirmed levonorgestrel 21 mcg/24 hr (up to 1 device intrauterine CONT 05/17/22 09/27/23 8 years) 52 mg intrauterine device (Mirena) pyridoxine (vitamin B6) 100 mg 100 mg PO DAILY 08/12/23 09/27/23 tablet amitriptyline 10 mg tablet 10 mg PO BEDTIME 08/30/23 09/27/23 Previous Rx's ?Medication ?Instructions ?Recorded polyethylene glycol 3350 17 238 g PO ONCE PRN laxative effect 09/18/23 gram/dose oral powder (Miralax) 1 day #238 grams omeprazole 40 mg capsule,delayed 40 mg PO DAILY 90 days #90 caps 11/03/23 release metformin 500 mg tablet 500 mg PO BID 90 days #180 tabs 11/19/23 atorvastatin 20 mg tablet 20 mg PO BEDTIME 90 days #90 tabs 11/28/23 acetaminophen 500 mg tablet 1,000 mg (2 x 500 mg) PO QID PRN 04/20/24 (Tylenol Extra Strength) pain #30 tabs ibuprofen 600 mg tablet 600 mg PO Q6H PRN pain #30 tabs 04/20/24 ofloxacin 0.3 % ear drops 10 drp otic (ears) DAILY 7 days 04/20/24 #10 mL Allergies Allergy/AdvReac Type Severity Reaction Status Date / Time pollard Allergy Intermediate Itching Verified 04/20/24 08:35 raspberry Allergy Intermediate Itching Verified 04/20/24 08:35 No Known Drug Allergies Allergy Unknown Unknown Verified 04/20/24 08:35 Review of Systems Review of Systems: Yes all other systems are reviewed and are negative Constitutional: Constitutional: Reports as per [facility] Past Medical History Attestation statement: The following information was validated with the patient. Medical History Kidney stone on left side Nephrolithiasis Morbid obesity with BMI of 45.0-49.9, adult Urinary tract infection Blurry vision, left eye Cervical spine pain Internal and external hemorrhoids without complication Hemorrhoids Renal calculi BMI 45.0-49.9, adult Thiamine deficiency Dyslipidemia GERD (gastroesophageal reflux disease) Hematuria Thickened endometrium Abnormal uterine bleeding (AUB) Pure hypercholesterolemia Insomnia Kidney stone Ectopic Surgical History Hx of lithotripsy H/O laparoscopy Hx of section Hx of cholecystectomy Hx of laparoscopic gastric banding Family History Family History Mother Osteoporosis Glaucoma Migraine Ovarian cancer Uterine cancer Sister Uterine cancer Maternal Grandfather Diabetes mellitus Paternal Grandmother Diabetes mellitus HTN (hypertension) Maternal Uncle Throat cancer Father HIV (human immunodeficiency virus infection) Sister Heart abnormality Sister Heart abnormality Epilepsy Brother No problems noted. Son No problems noted. Family/Other Substance use disorder Social History Social History Household Members: Children Housing: Apartment Do you presently have visiting nurse or other home services: No Alcohol intake: never Patient Tobacco Use Status: Never used Tobacco e-Cigarette/Vaping Use: Never Used Second Hand Smoke Exposure: Yes Advance Directives: No Advance Directives Information Provided: No Do you have a plan to hurt others: No Plan service: No 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al status: employed 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al exposures/hazards: No Gender identity: Female Cognitive needs: No Hearing needs: No Vision needs: Yes (glasses) Physical Exam ED Vital Signs: Vital Signs - 24 hr 04/20/24 08:35 Temperature 97.5 F Pulse Rate 82 Respiratory Rate 16 Blood Pressure 118/80 Pulse Oximetry 97 Oxygen Delivery Method Room Air BMI result Body Mass Index 50.5 Const General: cooperative, comfortable and no acute distress Orientation/consciousness: patient oriented x3 Limitations: no limitations HENMT Other: Bilateral auditory canals are erythematous, nonedematous. TMs are intact, no erythema noted, no bulging. Head: Yes normal to inspection, Yes normocephalic and Yes atraumatic Ears: hearing grossly normal bilaterally General nose exam: Normal external nose present Face and sinus: Yes normal facial exam Mouth: Normal oral and palatal mucosa present, oropharynx normal and moist mucous membranes Throat: Yes posterior oropharynx normal Eyes General: appearance normal, both eyes and all related structures Eyelids: Yes eyelids normal Conjunctivae: conjunctivae normal Sclerae: sclerae normal Pupils: Equal, round and reactive pupils present EOM: EOMs intact bilaterally Neck Neck: Yes normal visual inspection, Yes full ROM and Yes no lymphadenopathy Lymphatic: no lymphadenopathy noted Chest Chest palpation & inspection: normal inspection of the chest Resp Effort & Inspection: normal respiratory effort and able to speak in complete sentences Auscultation: clear to auscultation bilaterally, no crackles, no rales, no rhonchi and no wheezes Cardio Rate: regular rate Rhythm: regular rhythm Heart sounds: S1 normal heart sound present and S2 normal heart sound present GI Inspection: Yes normal to inspection Skin General skin exam: no rashes or lesions noted Trauma: no lacerations or abrasions Wounds: no wounds Neuro General: patient oriented x3 and moves all extremities Cranial nerves: Yes Equal, round and reactive pupils present Extrem Other: Bilateral lower extremities with no gross bony abnormality or swelling. Right knee with no edema noted, mild tenderness palpation along the medial aspect, full flexion-extension without difficulty. Strong DP pulse. No calf tenderness. Left knee with mild edema noted, tenderness to palpation throughout the entire knee joint, most on the lateral aspect. Pain with flexion. Strong DP pulse, no calf tenderness. General: Yes normal to inspection Right upper extremity: normal to inspection Left upper extremity: normal to inspection Right lower extremity: normal to inspection Left lower extremity: normal to inspection Course Reevaluation(s) Reevaluation #1: X-rays return, there is a small left knee joint effusion, no joint effusion on the right, no fracture, awaiting viral swabs and strep swab. Patient remains comfortable and stable. Time: 10:01 Reevaluation #2: Patient tested negative for COVID, flu, and RSV. Negative strep. Discussed findings with patient. Given orthopedic referral. Given strict return precautions. She understands and agrees with plan. Patient stable for discharge. Time: 10:53 Medications Administered Discontinued Medications Generic Name Dose Route Start Last Admin Trade Name Freq PRN Reason Stop Dose Admin Acetaminophen 650 mg 04/20/24 09:21 04/20/24 09:50 Acetaminophen 325 Mg Tablet PO 04/20/24 09:22 650 mg ONCE ONE Administration Medical Decision Making Medical Decision Making [facility] Narrative: This is a 48-year-old female who presents emergency department with complaints of bilateral ear pain, cough, sore throat, and bilateral knee pain since yesterday. On arrival, vital signs within normal limits. Bilateral auditory canals are erythematous, no TM edema or erythema. Bilateral knees with no acute bony abnormality, given injury, will obtain x-rays of bilateral knees. Differential diagnoses include otitis media, otitis externa, cerumen impaction, TM perforation, knee sprain, strain, contusion, fracture. No calf tenderness to suggest DVT. Plan: X-rays, COVID swab, strep swab Differential Diagnosis Differential Diagnoses: The differential diagnosis associated with the presentation includes See above Lab Data Labs: Lab Results 04/20/24 Range/Units 09:53 Influenza Type A (PCR) NEGATIVE (Negative) Influenza Type B (PCR) NEGATIVE (Negative) RSV RNA Qual (PCR) NEGATIVE (Negative) SARS-CoV-2 RNA (RT-PCR) NEGATIVE (Negative) S. pyogenes GrpA LEXIS Negative (Negative) Radiology Impression Discussion of test interpretation with radiology: I have reviewed the radiologist's reading. Discharge Plan Discharge Clinical Impression: Knee sprain, bilateral, Bilateral otitis externa Patient Disposition: Home, Self-Care Instructions: Knee Sprain (ED), Otitis Externa (ED) Additional Instructions: You were seen in the emergency department due to knee pain. Your x-rays do not show any broken bones. You likely sprained your knees, please rest, ice, use Al wrap and elevate your legs. Alternate between ibuprofen and Tylenol as needed for pain. You also have bilateral ear infections. Please use antibiotic ear drops as prescribed. If any new or worsening symptoms occur including but not limited to severe headaches, dizziness, blurred vision, chest pain, shortness of breath, please return for re-evaluation. Prescriptions: New ibuprofen 600 mg tablet 600 mg PO Q6H PRN (Reason: pain) Qty: 30 0RF acetaminophen [Tylenol Extra Strength] 500 mg tablet 1,000 mg PO QID PRN (Reason: pain) Qty: 30 0RF ofloxacin 0.3 % drops 10 drp otic (ears) DAILY 7 Days Qty: 10 0RF No Action omeprazole 40 mg capsule,delayed release(DR/EC) 40 mg PO DAILY 90 Days Qty: 90 1RF metformin 500 mg tablet 500 mg PO BID 90 Days Qty: 180 1RF atorvastatin 20 mg tablet 20 mg PO BEDTIME 90 Days Qty: 90 1RF pyridoxine (vitamin B6) 100 mg tablet 100 mg PO DAILY amitriptyline 10 mg tablet 10 mg PO BEDTIME Mirena 20 mcg/24 hours (7 yrs) 52 mg intrauterine device 1 device intrauterine CONT polyethylene glycol 3350 [Miralax] 17 gram/dose powder 238 g PO ONCE PRN (Reason: laxative effect) 1 Days Qty: 238 0RF Rx Instructions: Take as directed by mouth the day before your procedure. Referrals: [facility] [Provider Group] Print Language: [place]ese
[2024-04-20] MEDS: Acetaminophen 325 MG TABLET 650 MG PO (09:50)
[2024-04-20 10:07] LABS: IDNOW Serial# 58CA691E; Strep A Nucleic Acid Negative (Negative)
[2024-04-20 10:36] LABS: Influenza A PCR NEGATIVE (Negative); Influenza B PCR NEGATIVE (Negative); Resp Syncy Virus RNA Qual PCR NEGATIVE (Negative); SARS COV2 PCR INHOUSE NEGATIVE (Negative)
[2024-04-20 11:09] VITALS: BP 118/80; PULSE 82; RESP 16; TEMP 36.4; O2SAT 97
== END 2024-04-20 11:10 | disposition home or self-care (01) ==
PROVIDERS: Physician Assistant Medical; Emergency Provider Emergency Medicine; PCP Internal Medicine
DX: S83.92XA Sprain of unspecified site of left knee, initial encounter (principal); S83.91XA Sprain of unspecified site of right knee, initial encounter; W01.0XXA Fall on same level from slipping, tripping and stumbling without subsequent striking against object, initial encounter; H60.93 Unspecified otitis externa, bilateral; M25.462 Effusion, left knee; M25.562 Pain in left knee; M25.561 Pain in right knee; H92.03 Otalgia, bilateral; R05.9 Cough, unspecified; J02.9 Acute pharyngitis, unspecified; Z03.818 Encounter for observation for suspected exposure to other biological agents ruled out; E78.00 Pure hypercholesterolemia, unspecified; Z79.02 Long term (current) use of antithrombotics/antiplatelets; Z79.899 Other long term (current) drug therapy; Y93.14 Activity, water aerobics and water exercise; Y92.828 Other wilderness area as the place of occurrence of the external cause; Y99.9 Unspecified external cause status
CPT/HCPCS: 0241U; 73564; 87651; 99283

== ENCOUNTER 2024-05-16 09:23 | Outpatient (REF) | payer OTHER, SELFPAY ==
--- NOTE | ~2024-05-16 | XR_ITS ---
EXAMINATION: XR KNEE, RIGHT XR KNEE, LEFT CLINICAL INFORMATION: Knee pain. COMPARISON: 04/20/2024 TECHNIQUE: Standing AP view of both knees and sunrise views of each knee. FINDINGS: RIGHT KNEE: Joint spaces appear well-preserved. No appreciable fracture or malalignment. Patella is appropriately situated at the trochlea. Minimal soft tissue swelling. LEFT KNEE: Joint spaces are well-preserved. No fracture or malalignment. Tiny marginal osteophytes at the patella and trochlea. Minimal soft tissue swelling. Patella is appropriately situated at the trochlea. XR/XR knee RT 2V IMPRESSION: 1. Minimal patellofemoral compartment osteoarthritis in the left knee. 2. No acute osseous findings in the right knee. Joint spaces are well-preserved. Electronically signed by: Sly James MD 05/23/2024 04:23 PM EDT
--- NOTE | ~2024-05-16 | XR_ITS ---
EXAMINATION: XR KNEE, RIGHT XR KNEE, LEFT CLINICAL INFORMATION: Knee pain. COMPARISON: 04/20/2024 TECHNIQUE: Standing AP view of both knees and sunrise views of each knee. FINDINGS: RIGHT KNEE: Joint spaces appear well-preserved. No appreciable fracture or malalignment. Patella is appropriately situated at the trochlea. Minimal soft tissue swelling. LEFT KNEE: Joint spaces are well-preserved. No fracture or malalignment. Tiny marginal osteophytes at the patella and trochlea. Minimal soft tissue swelling. Patella is appropriately situated at the trochlea. XR/XR knee LT 2V IMPRESSION: 1. Minimal patellofemoral compartment osteoarthritis in the left knee. 2. No acute osseous findings in the right knee. Joint spaces are well-preserved. Electronically signed by: Sly James MD 05/23/2024 04:23 PM EDT
== END 2024-05-16 09:24 | disposition home or self-care (01) ==
LOC: HO.HOSX 09:23
PROVIDERS: Visit Provider Physician Assistant
DX: M25.569 Pain in unspecified knee (principal)
CPT/HCPCS: 73560

== ENCOUNTER 2024-05-17 08:20 | Outpatient (REF) | payer OTHER, SELFPAY | END 2024-05-17 08:21 | disposition home or self-care (01) | LOC: HO.HOSX 08:20 | PROVIDERS: PCP Internal Medicine; Visit Provider Physician Assistant | DX: E11.9 Type 2 diabetes mellitus without complications (principal); M17.12 Unilateral primary osteoarthritis, left knee; M17.11 Unilateral primary osteoarthritis, right knee | CPT/HCPCS: 20610; 99212; J1010 ==

== ENCOUNTER 2024-05-17 08:49 | Outpatient (AMB) | payer OTHER, SELFPAY ==
--- NOTE | 2024-05-17 08:56 | MHC.OFFVIS ---
Vital Signs 05/17/24 08:59 Height 5 ft 3 in Weight 285 lb BMI 50.5 Intake Visit Reasons: New Prob - B/L knee sprain, DOI 04/19/24 Intake Note: Adela is a 48 year old female who presents today for a follow up visit of her bilateral patella contusion, DOI 05/18/22. Patient reports when she is using stairs it causes her a lot of pain. She states when she is not using the stairs her pain is a bit better. Information Interpreted: clinical only (Grazyna ([id number])) Allergies pollard Allergy (Intermediate, Verified 05/17/24 08:57) Itching raspberry Allergy (Intermediate, Verified 05/17/24 08:57) Itching No Known Drug Allergies Allergy (Unknown, Verified 05/17/24 08:57) Unknown HPI HPI New Prob - B/L knee sprain, DOI 04/19/24: Details: 48-year-old female, who is Japanese speaking, presents in the office today for an evaluation of bilateral knee pain. I last saw the patient in the office on 09/29/22 status post a fall in 05/2022. She was awaiting her first physical therapy session at this appointment, which it was recommend for her to attend. She was prescribed meloxicam 15 mg PO daily. ? ? The patient was seen in the ED on 04/20/24 status [place] her to twist her bilateral knees. X-rays were obtained. She was prescribed ibuprofen 600 mg PO Q6H PRN and acetaminophen 1,000 mg PO QID PRN for pain. ? ? While in the office today, the patient [place] the river [place] early [place]. However, she reports she has been having issues with pain in the bilateral knees. She states the pain is in the front of the bilateral knees. She reports a cracking sensation with ROM. She also reports an increase in pain with going down the stairs.? ? Patient confirms a medical history of diabetes mellitus, which she states is controlled. ? [facility] Medical History Kidney stone on left side Nephrolithiasis Morbid obesity with BMI of 45.0-49.9, adult Urinary tract infection Blurry vision, left eye Cervical spine pain Internal and external hemorrhoids without complication Hemorrhoids Renal calculi BMI 45.0-49.9, adult Thiamine deficiency Dyslipidemia GERD (gastroesophageal reflux disease) Hematuria Thickened endometrium Abnormal uterine bleeding (AUB) Pure hypercholesterolemia Insomnia Kidney stone Ectopic Surgical History Hx of lithotripsy H/O laparoscopy Hx of section Hx of cholecystectomy Hx of laparoscopic gastric banding Family History Mother Osteoporosis Glaucoma Migraine Ovarian cancer Uterine cancer Sister Uterine cancer Maternal Grandfather Diabetes mellitus Paternal Grandmother Diabetes mellitus HTN (hypertension) Maternal Uncle Throat cancer Father HIV (human immunodeficiency virus infection) Sister Heart abnormality Sister Heart abnormality Epilepsy Brother No problems noted. Son No problems noted. 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al exposures/hazards: No Gender identity: Female Cognitive needs: No Hearing needs: No Vision needs: Yes (glasses) Female Reproductive History Menstrual Age of Menarche: 14 Review of Systems Const All systems reviewed & are unremarkable except as noted in HPI and below Physical Exam Vital Signs: BMI result Body Mass Index 50.5 Const General: cooperative and no acute distress Orientation/consciousness: patient oriented x3 Resp Effort & Inspection: normal respiratory effort and able to speak in complete sentences Cardio Peripheral pulses: Peripheral pulses 2+ throughout Skin General skin exam: no rashes or lesions noted Neuro General: patient oriented x3 Extrem Other: Bilateral knees: Normal to inspection. No ecchymosis, erythema, or joint effusion. No tenderness to palpation along the medial or lateral joint lines. Full knee extension and flexion. Crepitus felt with ROM. NVI.?? Office Procedures Joint Injection/Aspiration Joint Injection/Aspiration Primary Site: right knee Secondary Site: left knee Prep: site was prepped using aseptic technique, ethochloride spray was applied and injection warnings given Injected: 40 mg of, DepoMedrol, with 8 mL of (2% plain lido ) and in the joint Approach Used: anterolateral Procedure: The patient tolerated the procedure well, but had some pain with the injection and there was some relief with the local anesthesia Coding 60155 - Large joint Procedure code (CPT) selection complete Assessment & Plan Assessment & Plan (1) Osteoarthritis of right knee: Code(s): M17.11 - Unilateral primary osteoarthritis, right knee Category: Medical (2) Osteoarthritis of left knee: Code(s): M17.12 - Unilateral primary osteoarthritis, left knee Category: Medical (3) Diabetes mellitus: Code(s): E11.9 - Type 2 diabetes mellitus without complications Category: Medical Plan Ms. Damon is a 48-year-old female, who is Japanese speaking, presents in the office today for an evaluation of bilateral knee pain. I last saw the patient in the office on 09/29/22 status post a fall in 05/2022. She was awaiting her first physical therapy session at this appointment, which it was recommend for her to attend. She was prescribed meloxicam 15 mg PO daily. ? ? The patient was seen in the ED on 04/20/24 status post [place] causing her to twist her bilateral knees. X-rays were obtained. She was prescribed ibuprofen 600 mg PO Q6H PRN and acetaminophen 1,000 mg PO QID PRN for pain. ? ? While in the office today, the patient confirms falling at the river [place] early [place]. However, she reports she has been having issues with pain in the bilateral knees. She states the pain is in the front of the bilateral knees. She reports a cracking sensation with ROM. She also reports an increase in pain with going down the stairs.? ? Patient confirms a medical history of diabetes mellitus, which she states is controlled.? ? The patient was offered a cortisone injection in the bilateral knees with 40 mg of Depo-Medrol. The patient was explained the risks, benefits, and alternatives to receiving this injection. After receiving consent for the injection, the patient had the procedure done while in the office today. The patient tolerated the procedure well with no complications.? ? Due to the patient?s history of diabetes, they were instructed to monitor her blood glucose level. The patient was informed that they could see a rise in their numbers and if the numbers became too high, they were instructed to call their PCP. The patient was also informed that they could have facial flushing as a side effect of the injection, but this will pass.? ? The patient was given an out of work note for today and may return tomorrow to full-time regular duty. Follow-up will be PRN, or sooner if needed. ? ? X-rays of the bilateral knees which were obtained while in the office today and were reviewed by me, Estefania Manrique PA-C, revealed osteoarthritis bilaterally. ? ? X-rays of the bilateral knees, obtained on 04/20/24, revealed: ? 1. No fracture.? 2. Small left knee joint effusion.? 3. No joint effusion on the right? Orders: Orders XR knee LT 2V Today M25.569 - Pain in unspecified knee XR knee RT 2V Today M25.569 - Pain in unspecified knee Patient Instructions: Scribed by Anabel Price, coroner/medical examiner, for Estefania Manrique PA-C on 05/17/2024 at 9:24 am, EST.? Coding Level of Care Code Est Pt Level 4 (63937) Complex EM visit Add On G2211 Diagnoses Osteoarthritis of right knee M17.11 Osteoarthritis of left knee M17.12 Diabetes mellitus E11.9 CPT Codes Coding - 40599 Large joint: 76407 - Large joint ([id number])
[2024-05-17 08:59] VITALS: BMI 50.5
== END 2024-05-17 09:39 | disposition home or self-care (01) ==
PROVIDERS: PCP Internal Medicine; Visit Provider Physician Assistant
DX: M17.0 Bilateral primary osteoarthritis of knee (principal); E11.9 Type 2 diabetes mellitus without complications
CPT/HCPCS: 20610; 99214

== ENCOUNTER 2024-06-13 17:27 | Emergency (ER) | payer OTHER, SELFPAY ==
--- NOTE | 2024-06-13 17:32 | ED_ITS ---
HPI - General Adult General Chief complaint: Upper Respiratory Symptoms Stated complaint: covid+ today/feeling sick Time Seen by Provider: 06/13/24 17:44 Source: patient Mode of arrival: ambulatory Limitations: no limitations History of Present Illness ED Provider: Sonia HPI narrative: Patient is a 48-year-old female presenting with complaint of headache, cough, and sinus pain. Tested positive for Covid at home today. Wants to confirm that she is Covid positive. Denies shortness of breath/difficulty breathing. Symptoms began today. States symptom which brought her to the ED was sore throat. complaint: sore throat Onset (ago): hour(s) Associated symptoms: cough, headaches and other (nasal congestion) Treatments prior to arrival: none Related Data Home Medications ?Medication ?Instructions ?Recorded ?Confirmed levonorgestrel 21 mcg/24 hr (up to 1 device intrauterine CONT 05/17/22 09/27/23 8 years) 52 mg intrauterine device (Mirena) pyridoxine (vitamin B6) 100 mg 100 mg PO DAILY 08/12/23 09/27/23 tablet amitriptyline 10 mg tablet 10 mg PO BEDTIME 08/30/23 09/27/23 Previous Rx's ?Medication ?Instructions ?Recorded polyethylene glycol 3350 17 238 g PO ONCE PRN laxative effect 09/18/23 gram/dose oral powder (Miralax) 1 day #238 grams omeprazole 40 mg capsule,delayed 40 mg PO DAILY 90 days #90 caps 11/03/23 release atorvastatin 20 mg tablet 20 mg PO BEDTIME 90 days #90 tabs 11/28/23 acetaminophen 500 mg tablet 1,000 mg (2 x 500 mg) PO QID PRN 04/20/24 (Tylenol Extra Strength) pain #30 tabs ibuprofen 600 mg tablet 600 mg PO Q6H PRN pain #30 tabs 04/20/24 ofloxacin 0.3 % ear drops 10 drp otic (ears) DAILY 7 days 04/20/24 #10 mL metformin 500 mg tablet 500 mg PO BID 90 days #180 tabs 06/13/24 Allergies Allergy/AdvReac Type Severity Reaction Status Date / Time pollard Allergy Intermediate Itching Verified 06/13/24 17:34 raspberry Allergy Intermediate Itching Verified 06/13/24 17:34 No Known Drug Allergies Allergy Unknown Unknown Verified 06/13/24 17:34 Review of Systems Review of Systems: As per HPI Yes all other systems are reviewed and are negative Constitutional: Constitutional: Reports as per HPI [facility] Past Medical History Medical History Kidney stone on left side Nephrolithiasis Morbid obesity with BMI of 45.0-49.9, adult Urinary tract infection Blurry vision, left eye Cervical spine pain Internal and external hemorrhoids without complication Hemorrhoids Renal calculi BMI 45.0-49.9, adult Thiamine deficiency Dyslipidemia GERD (gastroesophageal reflux disease) Hematuria Thickened endometrium Abnormal uterine bleeding (AUB) Pure hypercholesterolemia Insomnia Kidney stone Ectopic Surgical History Hx of lithotripsy H/O laparoscopy Hx of section Hx of cholecystectomy Hx of laparoscopic gastric banding Family History Family History Mother Osteoporosis Glaucoma Migraine Ovarian cancer Uterine cancer Sister Uterine cancer Maternal Grandfather Diabetes mellitus Paternal Grandmother Diabetes mellitus HTN (hypertension) Maternal Uncle Throat cancer Father HIV (human immunodeficiency virus infection) Sister Heart abnormality Sister Heart abnormality Epilepsy Brother No problems noted. Son No problems noted. 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 Blood pressure normal. Heart rate normal. Respiratory rate normal. Temperature normal. Oxygen saturation normal. Const General: cooperative, healthy appearing and no acute distress Orientation/consciousness: oriented to person, oriented to place, oriented to time and patient oriented x3 Limitations: no limitations HENMT Head: Yes normocephalic and Yes atraumatic Ears: external ears normal, TM's normal bilaterally and EAC's normal General nose exam: Normal external nose present and Normal nasal mucous membranes and turbinates present Face and sinus: Yes sinuses nontender and Yes face symmetric Mouth: Normal oral and palatal mucosa present, oropharynx normal, moist mucous membranes and no trismus Throat: Yes posterior oropharynx normal, Yes tonsils normal and Yes uvula midline Eyes Pupils: Equal, round and reactive pupils present Neck Neck: Yes normal visual inspection and Yes supple Resp Effort & Inspection: normal respiratory effort and able to speak in complete sentences Auscultation: clear to auscultation bilaterally Cardio Rate: regular rate Rhythm: regular rhythm Heart sounds: S1 normal heart sound present and S2 normal heart sound present GI Palpation (GI): Soft to palpation and nontender Auscultation: normoactive bowel sounds General: Yes no CVA tenderness Back/Spine/Pelvis Back: no CVA tenderness Skin General skin exam: elasticity normal and turgor normal Neuro General: oriented to person, oriented to place, oriented to time, patient oriented x3, moves all extremities, no focal motor deficits and CN's II-XI intact bilaterally Cranial nerves: Yes Equal, round and reactive pupils present Cognition (Neuro): normal cognition Extrem General: Yes full ROM, Yes no pedal edema and Yes no calf tenderness Psych Mental Status: mental status grossly normal Affect: normal affect Thought process: Normal thought process present Course Course Course Narrative: This is a rapid medical exam performed by Isis Scott NP: Additional HPI, ROS, PE not included below will be deferred to primary provider. Patient is a 48-year-old female presenting with complaint of headache, cough, and sinus pain. Tested positive for Covid at home today. Denies shortness of breath/difficulty breathing. Symptoms began today. States symptom which brought her to the ED was sore throat. Plan: viral and strep swabs Medical Decision Making Medical Decision Making MDM Narrative: Patient is a 48-year-old female presenting with complaint of headache, cough, and sinus pain. On exam patient is awake, A+Ox3, VS WNL, afebrile, normal neurological exam without focal deficits, physical exam findings as above. Given reported symptoms and physical exam findings, initial differential includes Covid, strep pharyngitis, other viral illness. Viral serology positive for Covid, patient updated on results. Discussed with patient that treatment is symptom management. Advised Tylenol, ibuprofen, fluids, rest. Follow up with PCP. Return precautions discussed. Patient verbalized understanding of and agreement with plan. Differential Diagnosis Differential Diagnoses: The differential diagnosis associated with the presentation includes As per [facility] Lab Data [facility] Lab Attestation statement: I reviewed the patient's lab results. As per [facility] Labs: Lab Results 06/13/24 Range/Units 17:44 Influenza Type A (PCR) NEGATIVE (Negative) Influenza Type B (PCR) NEGATIVE (Negative) RSV RNA Qual (PCR) NEGATIVE (Negative) SARS-CoV-2 RNA (RT-PCR) POSITIVE A (Negative) S. pyogenes GrpA LEXIS Negative (Negative) External Record Review External record reviewed: Inpatient record, Office record and Outpatient record Discharge Plan Discharge Clinical Impression: COVID-19 Patient Disposition: Home, Self-Care Instructions: COVID-19 (Coronavirus Disease 2019) (ED) Additional Instructions: You were evaluated in the emergency department today for sore throat, cough, headaches. Your COVID test was resulted as positive. You should continue to isolate at home for another 5 days. You should continue to wear mask for 5 days after that. This is a viral illness and treatment is symptomatic. We recommend that you take 650 mg of Tylenol or 600 mg of ibuprofen every 6 hours as needed. If necessary, you can alternate these medications every 3 hours. For example, at 9:00 a.m. take Tylenol, then at noon take ibuprofen, then at 3:00 p.m. take Tylenol, etc.. Return to the emergency department with worsening shortness of breath, chest pain, fever that does not improve with Tylenol or ibuprofen, persistent vomiting, or any other concerning symptoms. You should follow-up with your primary care provider. Prescriptions: No Action omeprazole 40 mg capsule,delayed release(DR/EC) 40 mg PO DAILY 90 Days Qty: 90 1RF atorvastatin 20 mg tablet 20 mg PO BEDTIME 90 Days Qty: 90 1RF metformin 500 mg tablet 500 mg PO BID 90 Days Qty: 180 1RF pyridoxine (vitamin B6) 100 mg tablet 100 mg PO DAILY amitriptyline 10 mg tablet 10 mg PO BEDTIME ibuprofen 600 mg tablet 600 mg PO Q6H PRN (Reason: pain) Qty: 30 0RF acetaminophen [Tylenol Extra Strength] 500 mg tablet 1,000 mg PO QID PRN (Reason: pain) Qty: 30 0RF ofloxacin 0.3 % drops 10 drp otic (ears) DAILY 7 Days Qty: 10 0RF Mirena 20 mcg/24 hours (7 yrs) 52 mg intrauterine device 1 device intrauterine CONT polyethylene glycol 3350 [Miralax] 17 gram/dose powder 238 g PO ONCE PRN (Reason: laxative effect) 1 Days Qty: 238 0RF Rx Instructions: Take as directed by mouth the day before your procedure. Print Language: Taiwanese
[2024-06-13 17:33] VITALS: BP 135/86; PULSE 97; RESP 20; TEMP 36.7; O2SAT 96; BMI 49.6
[2024-06-13 17:59] LABS: IDNOW Serial# 08D9AD1C; Strep A Nucleic Acid Negative (Negative)
[2024-06-13 18:38] LABS: Influenza A PCR NEGATIVE (Negative); Influenza B PCR NEGATIVE (Negative); Resp Syncy Virus RNA Qual PCR NEGATIVE (Negative); SARS COV2 PCR INHOUSE POSITIVE (Negative)
[2024-06-13 19:52] VITALS: BP 135/86; PULSE 97; RESP 20; TEMP 36.7; O2SAT 96
== END 2024-06-13 19:57 | disposition home or self-care (01) ==
PROVIDERS: Registered Nurse Emergency; Emergency Provider Internal Medicine; PCP Internal Medicine
DX: U07.1 COVID-19 (principal); R51.9 Headache, unspecified; R05.9 Cough, unspecified; R09.81 Nasal congestion; Z79.899 Other long term (current) drug therapy
CPT/HCPCS: 0241U; 87651; 99282; 99283

== ENCOUNTER 2024-06-19 09:01 | Outpatient (AMB) | payer OTHER, SELFPAY ==
--- NOTE | 2024-06-19 09:04 | AM.OFFWIN_ITS ---
Intake Vital Signs 06/19/24 09:05 Height 5 ft 3 in Weight 284 lb BMI 50.3 BP 110/80 Blood Pressure Location Rt brachial Position Sitting Pulse 70 Pulse Source Pulse Oximeter Temp 98.3 F Temp Source Oral Pulse Oximetry (%) 98 Oxygen Delivery Method Room Air Intake Visit Reasons: EP ? sinus infection, sore throat Intake Note: Patient here because she is having sinus pressure, sore throat and headache after having covid last week. Patient Tobacco Use Status: Never used Tobacco Allergies pollard Allergy (Intermediate, Verified 06/19/24 09:06) Itching raspberry Allergy (Intermediate, Verified 06/19/24 09:06) Itching No Known Drug Allergies Allergy (Unknown, Verified 06/19/24 09:06) Unknown Do you need a note to return to daycare/school/sports/work: No HPI EP ? sinus infection, sore throat HPI Details This note is constructed using voice recognition software. While every effort has been made to ensure accuracy, mediation commissioner errors may have been included. The patient is a 48 year old female who presents to the clinic today with sinus congestion ongoing after COVID last week. She has been taking [id number] measures including saline, nasal decongestants, and TheraFlu. The symptoms seem to be getting a little bit worse. She denies any fevers, chills, shortness of breath, cough, does have a sore throat from this. Symptoms are worse if she leans forward. [facility] Medical History Kidney stone on left side Nephrolithiasis Morbid obesity with BMI of 45.0-49.9, adult Urinary tract infection Blurry vision, left eye Cervical spine pain Internal and external hemorrhoids without complication Hemorrhoids Renal calculi BMI 45.0-49.9, adult Thiamine deficiency Dyslipidemia GERD (gastroesophageal reflux disease) Hematuria Thickened endometrium Abnormal uterine bleeding (AUB) Pure hypercholesterolemia Insomnia Kidney stone Ectopic Surgical History Hx of lithotripsy H/O laparoscopy Hx of section Hx of cholecystectomy Hx of laparoscopic gastric banding Family History Mother Osteoporosis Glaucoma Migraine Ovarian cancer Uterine cancer Sister Uterine cancer Maternal Grandfather Diabetes mellitus Paternal Grandmother Diabetes mellitus HTN (hypertension) Maternal Uncle Throat cancer Father HIV (human immunodeficiency virus infection) Sister Heart abnormality Sister Heart abnormality Epilepsy Brother No problems noted. Son No problems noted. 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al exposures/hazards: No Gender identity: Female Cognitive needs: No Hearing needs: No Vision needs: Yes (glasses) Female Reproductive History Menstrual Age of Menarche: 14 Review of Systems Const All systems reviewed & are unremarkable except as noted in HPI and below Physical Exam Vital Signs: Last Vital Signs Temp 98.3 F 06/19/24 09:05 Pulse 70 06/19/24 09:05 BP 110/80 06/19/24 09:05 Pulse Ox 98 06/19/24 09:05 Oxygen Delivery Method Room Air 06/19/24 09:05 BMI result Body Mass Index 50.3 Const General: cooperative, healthy appearing, comfortable and no acute distress Orientation/consciousness: patient oriented x3 Limitations: no limitations HEENT Head: Yes normal to inspection Ears: hearing grossly normal bilaterally, external ears normal and TM's normal bilaterally General nose exam: Normal external nose present, Normal nares present, Abnormal mucous membranes and turbinates present erythematous and Nasal discharge present purulent Face and sinus: Yes normal facial exam and Yes sinus tenderness Mouth: Normal oral and palatal mucosa present and moist mucous membranes Throat: Yes posterior oropharynx normal, Yes tonsils normal and Yes uvula midline Eyes General: appearance normal, both eyes and all related structures Neck Neck: Yes normal visual inspection Resp Effort & Inspection: normal respiratory effort, able to speak in complete sentences, Actively coughing, no respiratory distress, not tachypneic, no tripod positioning and no use of accessory muscles Auscultation: clear to auscultation bilaterally Cardio Rate: regular rate Rhythm: regular rhythm Heart sounds: normal S1 and S2 Skin General skin exam: no rashes or lesions noted Neuro General: patient oriented x3 Extrem General: Yes normal to inspection and Yes no clubbing, cyanosis or edema Assessment & Plan Assessment & Plan (1) Sinusitis: Code(s): J32.9 - Chronic sinusitis, unspecified Qualifiers: Sinusitis location: maxillary Chronicity: acute Recurrence: non- recurrent Qualified Code(s): J01.00 - Acute maxillary sinusitis, unspecified Plan: Supportive measures encouraged and reviewed. Advised consideration of sinus rinse if needed. Antibiotic sent to requested pharmacy, advised patient to take antibiotics until completed and not to stop if feeling better, unless the patient has side effects. Advised patient to follow up with primary care provider with worsening or failure to resolve. Plan See above for full details and plan. Medications: New amoxicillin-pot clavulanate 875-125 mg 1 tab PO BID 10 days 20 tabs 0RF Coding Level of Care Code Est Pt Level 3 (50405) Diagnoses Acute non-recurrent maxillary sinusitis J01.00 Sinusitis location: maxillary Chronicity: acute Recurrence: non-recurrent
[2024-06-19 09:05] VITALS: BP 110/80; PULSE 70; TEMP 36.8; O2SAT 98; BMI 50.3
== END 2024-06-19 09:25 | disposition home or self-care (01) ==
PROVIDERS: PCP Internal Medicine; Visit Provider Registered Nurse
DX: J01.00 Acute maxillary sinusitis, unspecified (principal)

== ENCOUNTER → 2024-06-19 09:01 | Outpatient (BNVA) | payer OTHER, SELFPAY | PROVIDERS: PCP Internal Medicine; Visit Provider Registered Nurse | DX: J01.00 Acute maxillary sinusitis, unspecified (principal) | CPT/HCPCS: 99212 ==

== ENCOUNTER 2024-07-06 23:57 | Emergency (ER) | payer OTHER, SELFPAY ==
[2024-07-06 23:59] VITALS: BP 151/94; PULSE 87; RESP 18; TEMP 36.7; O2SAT 97; BMI 49.6
[2024-07-07 00:21] LABS: MANUAL DIFF FLAG NO
[2024-07-07 00:22] LABS: Basophils Absolute Auto 0.1 X10*3/uL (0.0-0.2); Basophils Percent Auto 0.5 % (0-2); Eosinophils Absolute Auto 0.2 X10*3/uL (0.0-0.4); Eosinophils Percent Auto 1.7 % (0-4); Hematocrit 45.3 % (37.0-47.0); Imm Gran Abs Auto 0.05 X10*3/uL (0.00-0.03); Imm Gran Pct Auto 0.5 % (0.0-0.4); Lymphocytes Absolute Auto 3.4 X10*3/uL (1.2-4.9); Lymphocytes Percent Auto 31.4 % (20-40); Mean Corpuscular HGB Conc 33.1 g/dl (31.0-35.0); Mean Corpuscular Hemoglobin 29.5 pg (27.0-33.0); Mean Platelet Volume 9.5 fL (9.4-12.3); Monocytes Absolute Auto 0.7 X10*3/uL (0.1-1.2); Monocytes Percent Auto 6.3 % (2-11); Neutrophils Absolute Auto 6.5 x10*3/uL (2.0-8.3); Neutrophils Percent Auto 59.6 % (45-73); Platelet Count 302 X10*3/uL (160-400); Red Blood Count 5.09 X10*6/uL (4.20-5.50); Red Cell Distribution Width 13.2 % (11.0-16.0); White Blood Count 10.9 X10*3/uL (4.8-10.8)
[2024-07-07 00:23] LABS: Appearance Urine Clear; Color Urine Yellow; Glucose Urine UA Negative (Negative); Leukocyte Esterase Urine Moderate (2+) (Negative); Nitrite Urine Negative (Negative); PH 6.5 (5.0-9.0); UMIC TRIGGER UACC YES; Urine Blood Negative (Negative); Urine Ketones Negative (Negative); Urine Protein Negative (Neg-Trace)
[2024-07-07 00:24] LABS: UPreg QC Valid YES; Urine Pregnancy NEGATIVE (NEGATIVE)
[2024-07-07 00:26] LABS: Bacteria Urine None Seen (None Seen); Hyaline Casts Urine 0-2 /LPF (0-2); RBC Urine 0-2 /HPF (0-2); Squamous Epithelial Cell Urine 0-2 /HPF (0-2); UACC Culture Trigger YES
[2024-07-07 00:36] LABS: Alanine Aminotransferase 30 U/L (0-31); Albumin Level 3.8 g/dL (3.5-5.0); Alkaline Phosphatase 108 U/L (39-117); Anion Gap 14 (12-20); Aspartate Amino Transferase 25 U/L (5-31); Bilirubin Total 0.4 mg/dL (0.0-1.0); Blood Urea Nitrogen 10 mg/dL (9-16); Calcium 9.2 mg/dL (8.4-10.2); Carbon Dioxide 26 mmol/L (22-29); Chloride 109 mmol/L (96-108); Creatinine Clr Calc Pharmacy 107.4; Estimated Glomerular Filt Rate > 60; Glucose Random 127 mg/dL (60-115); Sodium 145 mmol/L (135-145); Total Protein 7.1 g/dL (6.5-8.0)
--- NOTE | 2024-07-07 01:44 | ED_ITS ---
HPI - Female Genitourinary General Chief complaint: Urogenital-Female Stated complaint: infection? Time Seen by Provider: 07/07/24 01:11 EST Source: patient Mode of arrival: ambulatory History of Present Illness ED Provider: sofía FAITH Narrative: Patient has been having dysuria and frequency for last 2 days also has vaginal itching no flank pain no nausea no vomiting no fever no chills no vaginal discharge Related Data Home Medications ?Medication ?Instructions ?Recorded ?Confirmed levonorgestrel 21 mcg/24 hr (up to 1 device intrauterine CONT 05/17/22 09/27/23 8 years) 52 mg intrauterine device (Mirena) pyridoxine (vitamin B6) 100 mg 100 mg PO DAILY 08/12/23 09/27/23 tablet amitriptyline 10 mg tablet 10 mg PO BEDTIME 08/30/23 09/27/23 Previous Rx's ?Medication ?Instructions ?Recorded polyethylene glycol 3350 17 238 g PO ONCE PRN laxative effect 09/18/23 gram/dose oral powder (Miralax) 1 day #238 grams omeprazole 40 mg capsule,delayed 40 mg PO DAILY 90 days #90 caps 11/03/23 release atorvastatin 20 mg tablet 20 mg PO BEDTIME 90 days #90 tabs 11/28/23 acetaminophen 500 mg tablet 1,000 mg (2 x 500 mg) PO QID PRN 04/20/24 (Tylenol Extra Strength) pain #30 tabs ibuprofen 600 mg tablet 600 mg PO Q6H PRN pain #30 tabs 04/20/24 ofloxacin 0.3 % ear drops 10 drp otic (ears) DAILY 7 days 04/20/24 #10 mL metformin 500 mg tablet 500 mg PO BID 90 days #180 tabs 06/13/24 amoxicillin 875 mg-potassium 1 tab PO BID 10 days #20 tabs 06/19/24 clavulanate 125 mg tablet nitrofurantoin 100 mg PO BID 7 days #14 caps 07/07/24 monohydrate/macrocrystals 100 mg capsule (Macrobid) phenazopyridine 200 mg tablet 200 mg PO TID 2 days #6 tabs 07/07/24 (Pyridium) Allergies Allergy/AdvReac Type Severity Reaction Status Date / Time pollard Allergy Intermediate Itching Verified 07/07/24 00:02 raspberry Allergy Intermediate Itching Verified 07/07/24 00:02 No Known Drug Allergies Allergy Unknown Unknown Verified 07/07/24 00:02 Review of Systems 2 Review of Systems: Yes all other systems are reviewed and are negative [facility] Past Medical History Medical History (Reviewed 07/07/24 @ 01:45 EST by Marquez Alonso MD) Kidney stone on left side Nephrolithiasis Morbid obesity with BMI of 45.0-49.9, adult Urinary tract infection Blurry vision, left eye Cervical spine pain Internal and external hemorrhoids without complication Hemorrhoids Renal calculi BMI 45.0-49.9, adult Thiamine deficiency Dyslipidemia GERD (gastroesophageal reflux disease) Hematuria Thickened endometrium Abnormal uterine bleeding (AUB) Pure hypercholesterolemia Insomnia Kidney stone Ectopic Surgical History (Reviewed 07/07/24 @ 01:45 EST by Marquez Alonso MD) Hx of lithotripsy H/O laparoscopy Hx of section Hx of cholecystectomy Hx of laparoscopic gastric banding Family History Family History (Reviewed 07/07/24 @ 01:45 EST by Marquez Alonso MD) Mother Osteoporosis Glaucoma Migraine Ovarian cancer Uterine cancer Sister Uterine cancer Maternal Grandfather Diabetes mellitus Paternal Grandmother Diabetes mellitus HTN (hypertension) Maternal Uncle Throat cancer Father HIV (human immunodeficiency virus infection) Sister Heart abnormality Sister Heart abnormality Epilepsy Brother No problems noted. Son No problems noted. 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 Oriented X3. No acute distress. Neck: Normal inspection. Neck supple. CVS: Normal heart rate and rhythm. Pulses normal. Respiratory: No respiratory distress. Equal air entry bilateral, Abdomen: Soft and nontender. Bowel sounds are present, no mass palpable, no CVA tenderness Skin: Skin warm and dry. Normal skin color. Normal skin turgor. Extremities: No lower extremity edema. No calf tenderness Neuro: Oriented X 3. No motor deficit. Medical Decision Making Lab Data [facility] Lab Attestation statement: I reviewed the patient's lab results. 07/07/24 00:15 07/07/24 00:15 Labs: Lab Results 07/07/24 Range/Units 00:15 WBC 10.9 H (4.8-10.8) X10*3/uL RBC 5.09 (4.20-5.50) X10*6/uL Hgb 15.0 (12.0-16.0) g/dl Hct 45.3 (37.0-47.0) % MCV 89.0 (80.0-98.0) fL MCH 29.5 (27.0-33.0) pg MCHC 33.1 (31.0-35.0) g/dl RDW 13.2 (11.0-16.0) % Plt Count 302 (160-400) X10*3/uL MPV 9.5 (9.4-12.3) fL Immature Gran % (Auto) 0.5 H (0.0-0.4) % Neut % (Auto) 59.6 (45-73) % Lymph % (Auto) 31.4 (20-40) % [place] % (Auto) 6.3 (2-11) % Eos % (Auto) 1.7 (0-4) % Baso % (Auto) 0.5 (0-2) % Lymph # (Auto) 3.4 (1.2-4.9) X10*3/uL [place] # (Auto) 0.7 (0.1-1.2) X10*3/uL Eos # (Auto) 0.2 (0.0-0.4) X10*3/uL Baso # (Auto) 0.1 (0.0-0.2) X10*3/uL Abs Immat Gran (auto) 0.05 H (0.00-0.03) X10*3/uL Absolute Neuts (auto) 6.5 (2.0-8.3) x10*3/uL Absolute Nucleated RBC 0.000 (0.0-0.012) X10*3/uL Nucleated RBC % (auto) 0.0 (0.0-0.2) /100WBC Sodium 145 (135-145) mmol/L Potassium 4.0 (3.3-5.1) mmol/L Chloride 109 H (96-108) mmol/L Carbon Dioxide 26 (22-29) mmol/L Anion Gap 14 (12-20) BUN 10 (9-16) mg/dL Creatinine 0.85 (0.5-1.4) mg/dL Estim Creat Clear Calc 107.4 Estimated GFR > 60 Random Glucose 127 H (60-115) mg/dL Calcium 9.2 (8.4-10.2) mg/dL Total Bilirubin 0.4 (0.0-1.0) mg/dL AST 25 (5-31) U/L ALT 30 (0-31) U/L Alkaline Phosphatase 108 (39-117) U/L Total Protein 7.1 (6.5-8.0) g/dL Albumin 3.8 (3.5-5.0) g/dL Urine Color Yellow Urine Appearance Clear Urine pH 6.5 (5.0-9.0) Ur Specific [place] 1.020 (1.005-1.025) Urine Protein Negative (Neg-Trace) mg/dL Urine Glucose (UA) Negative (Negative) mg/dL Urine Ketones Negative (Negative) mg/dL Urine Blood Negative (Negative) Urine Nitrite Negative (Negative) Ur Leukocyte Esterase Moderate (2+) H (Negative) Urine RBC 0-2 (0-2) /HPF Urine WBC 6-10 H (0-5) /HPF Ur Squamous Epith Cells 0-2 (0-2) /HPF Urine Bacteria None Seen (None Seen) Hyaline Casts 0-2 (0-2) /LPF Urine Test NEGATIVE (NEGATIVE) Discharge Plan Discharge Clinical Impression: UTI (urinary tract infection), bacterial, Candidiasis of vagina Patient Disposition: Home, Self-Care Instructions: Urinary Tract Infection in Women (DC), Yeast Infection (ED) Additional Instructions: Drink plenty of fluids Take antibiotic as prescribed Prescriptions: New nitrofurantoin monohyd/m-cryst [Macrobid] 100 mg capsule 100 mg PO BID 7 Days Qty: 14 0RF Rx Instructions: must administer with a meal/food phenazopyridine [Pyridium] 200 mg tablet 200 mg PO TID 2 Days Qty: 6 0RF No Action omeprazole 40 mg capsule,delayed release(DR/EC) 40 mg PO DAILY 90 Days Qty: 90 1RF atorvastatin 20 mg tablet 20 mg PO BEDTIME 90 Days Qty: 90 1RF metformin 500 mg tablet 500 mg PO BID 90 Days Qty: 180 1RF pyridoxine (vitamin B6) 100 mg tablet 100 mg PO DAILY amitriptyline 10 mg tablet 10 mg PO BEDTIME ibuprofen 600 mg tablet 600 mg PO Q6H PRN (Reason: pain) Qty: 30 0RF acetaminophen [Tylenol Extra Strength] 500 mg tablet 1,000 mg PO QID PRN (Reason: pain) Qty: 30 0RF ofloxacin 0.3 % drops 10 drp otic (ears) DAILY 7 Days Qty: 10 0RF Mirena 20 mcg/24 hours (7 yrs) 52 mg intrauterine device 1 device intrauterine CONT polyethylene glycol 3350 [Miralax] 17 gram/dose powder 238 g PO ONCE PRN (Reason: laxative effect) 1 Days Qty: 238 0RF Rx Instructions: Take as directed by mouth the day before your procedure. amoxicillin-pot clavulanate 875-125 mg tablet 1 tab PO BID 10 Days Qty: 20 0RF Print Language: Armenian
[2024-07-07] MEDS: Fluconazole 100 MG TABLET PO (02:12)
[2024-07-07] MEDS: Nitrofurantoin Monohyd/M-Cryst 100 MG CAPSULE PO (02:12)
[2024-07-07] MEDS: Phenazopyridine HCL 200 MG TABLET PO (02:13)
[2024-07-07 02:15] VITALS: BP 151/94; PULSE 87; RESP 18; TEMP 36.7; O2SAT 97
== END 2024-07-07 02:34 | disposition home or self-care (01) ==
PROVIDERS: Emergency Provider Internal Medicine; PCP Internal Medicine
DX: N39.0 Urinary tract infection, site not specified (principal); B37.31 Acute candidiasis of vulva and vagina; R30.0 Dysuria; R35.0 Frequency of micturition; Z79.899 Other long term (current) drug therapy
CPT/HCPCS: 36415; 80053; 81001; 81025; 85025; 87086; 99284

== ENCOUNTER 2024-07-26 16:42 | Emergency (ER) | payer OTHER, SELFPAY ==
--- NOTE | ~2024-07-26 | US_ITS ---
EXAMINATION: US RETROPERITONEAL LIMITED (RENAL ONLY) CLINICAL INFORMATION: Bilateral flank pain. Cloudy urine.. COMPARISON: Renal ultrasound dated 12/20/2023. TECHNIQUE: Negative bilateral renal ultrasound was performed. FINDINGS: RIGHT KIDNEY: 12 x 5.3 x 4.9 cm (SAG x AP x TRV). The kidney is normal in size, contour, and echogenicity. Renal cortical thickness is normal. No calculi or focal parenchymal lesions. No hydronephrosis. LEFT KIDNEY: 11.7 x 5 x 4.1 cm (SAG x AP x TRV). The kidney is normal in size, contour, and echogenicity. Renal cortical thickness is normal. No focal parenchymal lesions. In the lower pole of the left kidney, echogenic reflectors are seen, possibly due to nonobstructing renal calculi versus prominent vascular interfaces. The 2 discrete 0.7 cm calcifications previously demonstrated the lower pole of the left kidney are not clearly appreciated on this exam. No hydronephrosis. US/US renal BI IMPRESSION: * Normal right kidney. * Echogenic reflectors are seen in the lower pole of the left kidney, possibly representing nonobstructing renal calculi versus prominent vascular interfaces. The 2 discrete 0.7 cm calcifications previously demonstrated in the lower pole of the left kidney are not clearly appreciated on this exam. * No evidence of hydronephrosis in either kidney. Electronically signed by: Suzette Torres MD 07/26/2024 10:14 PM MARCIO
[2024-07-26 16:59] VITALS: BP 148/88; PULSE 89; RESP 18; TEMP 36.2; O2SAT 96; BMI 49.6
--- NOTE | 2024-07-26 17:01 | ED_ITS ---
HPI - General Adult General Chief complaint: Urogenital-Female Stated complaint: ?UTI/Flank pain Time Seen by Provider: 07/26/24 18:09 Source: RN notes reviewed and old records reviewed History of Present Illness ED Provider: Kinga Mckeon PA-C HPI narrative: 48-year-old female with a past medical history renal calculi, HLD, GERD, CKD, depression, presenting to the ED complaining of cloudy urine and low back pain x yesterday. Reports history of recurrent UTIs. Denies dysuria, hematuria, vaginal bleeding, vaginal discharge, nausea, vomiting, abdominal pain Related Data Home Medications ?Medication ?Instructions ?Recorded ?Confirmed levonorgestrel 21 mcg/24 hr (up to 1 device intrauterine CONT 05/17/22 09/27/23 8 years) 52 mg intrauterine device (Mirena) pyridoxine (vitamin B6) 100 mg 100 mg PO DAILY 08/12/23 09/27/23 tablet amitriptyline 10 mg tablet 10 mg PO BEDTIME 08/30/23 09/27/23 Previous Rx's ?Medication ?Instructions ?Recorded polyethylene glycol 3350 17 238 g PO ONCE PRN laxative effect 09/18/23 gram/dose oral powder (Miralax) 1 day #238 grams atorvastatin 20 mg tablet 20 mg PO BEDTIME 90 days #90 tabs 11/28/23 acetaminophen 500 mg tablet 1,000 mg (2 x 500 mg) PO QID PRN 04/20/24 (Tylenol Extra Strength) pain #30 tabs ibuprofen 600 mg tablet 600 mg PO Q6H PRN pain #30 tabs 04/20/24 ofloxacin 0.3 % ear drops 10 drp otic (ears) DAILY 7 days 04/20/24 #10 mL metformin 500 mg tablet 500 mg PO BID 90 days #180 tabs 06/13/24 amoxicillin 875 mg-potassium 1 tab PO BID 10 days #20 tabs 06/19/24 clavulanate 125 mg tablet nitrofurantoin 100 mg PO BID 7 days #14 caps 07/07/24 monohydrate/macrocrystals 100 mg capsule (Macrobid) phenazopyridine 200 mg tablet 200 mg PO TID 2 days #6 tabs 07/07/24 (Pyridium) sumatriptan succinate 25 mg tablet 25 mg PO Q2-4H PRN migraine 07/14/24 headache 30 days #9 tabs omeprazole 40 mg capsule,delayed 40 mg PO DAILY 90 days #90 caps 07/21/24 release methocarbamol 750 mg tablet 750 mg PO TID PRN muscle spasm #20 07/26/24 tabs Allergies Allergy/AdvReac Type Severity Reaction Status Date / Time pollard Allergy Intermediate Itching Verified 07/26/24 17:02 raspberry Allergy Intermediate Itching Verified 07/26/24 17:02 No Known Drug Allergies Allergy Unknown Unknown Verified 07/26/24 17:02 Review of Systems 2 Review of Systems: Yes all other systems are reviewed and are negative Constitutional: Constitutional: Reports as per [facility] Past Medical History Attestation statement: The following information was validated with the patient. Source: old records reviewed Medical History Kidney stone on left side Nephrolithiasis Morbid obesity with BMI of 45.0-49.9, adult Urinary tract infection Blurry vision, left eye Cervical spine pain Internal and external hemorrhoids without complication Hemorrhoids Renal calculi BMI 45.0-49.9, adult Thiamine deficiency Dyslipidemia GERD (gastroesophageal reflux disease) Hematuria Thickened endometrium Abnormal uterine bleeding (AUB) Pure hypercholesterolemia Insomnia Kidney stone Ectopic Surgical History Hx of lithotripsy H/O laparoscopy Hx of section Hx of cholecystectomy Hx of laparoscopic gastric banding Family History Family History Mother Osteoporosis Glaucoma Migraine Ovarian cancer Uterine cancer Sister Uterine cancer Maternal Grandfather Diabetes mellitus Paternal Grandmother Diabetes mellitus HTN (hypertension) Maternal Uncle Throat cancer Father HIV (human immunodeficiency virus infection) Sister Heart abnormality Sister Heart abnormality Epilepsy Brother No problems noted. Son No problems noted. 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al exposures/hazards: No Gender identity: Female Cognitive needs: No Hearing needs: No Vision needs: Yes (glasses) Physical Exam ED Vital Signs: Vital Signs - 24 hr 07/26/24 16:59 07/26/24 18:11 07/26/24 20:04 Temperature 97.1 F 98.0 F 97.5 F Pulse Rate 89 83 80 Respiratory Rate 18 16 16 Blood Pressure 148/88 H 143/97 H 105/61 Pulse Oximetry 96 97 97 Oxygen Delivery Method Room Air Room Air Room Air 07/26/24 22:03 Temperature 97.6 F Pulse Rate 76 Respiratory Rate 16 Blood Pressure 136/89 Pulse Oximetry 96 Oxygen Delivery Method Room Air BMI result Body Mass Index 49.6 Const General: cooperative, healthy appearing and no acute distress Orientation/consciousness: patient oriented x3 Limitations: no limitations HENMT Head: Yes normal to inspection and Yes atraumatic Ears: hearing grossly normal bilaterally General nose exam: Normal external nose present Face and sinus: Yes normal facial exam Eyes General: appearance normal, both eyes and all related structures EOM: EOMs intact bilaterally Neck Neck: Yes normal visual inspection and Yes no meningeal signs Resp Effort & Inspection: normal respiratory effort and no respiratory distress Auscultation: clear to auscultation bilaterally Cardio Rate: regular rate Heart sounds: S1 normal heart sound present and S2 normal heart sound present GI Inspection: Yes normal to inspection Palpation (GI): Soft to palpation, nontender, no guarding and not rigid General: Yes CVA tenderness bilateral Back/Spine/Pelvis Back: CVA tenderness Skin Rashes: no rashes Wounds: no wounds Neuro General: patient oriented x3, tone normal and no meningeal signs Cranial nerves: Yes CN's II-XII intact bilaterally Gait exam (Neuro): Normal gait present Extrem General: Yes normal to inspection Course Course Course Narrative: RME, this is a rapid medical exam performed by Santiago Liz please refer to primary provider for complete H&P- 48 year old female presents for evaluation of burning with urination that started today. Denies fevers, plan for UA -1941-- leukocytosis of 12.0. Labs otherwise reassuring - UA not infected -2099-- ED care transferred to [facility] [place] pending ultrasound and dispo per results Reevaluation(s) Reevaluation #1: 9:00 p.m. receive sign-out with the patient in stable condition pending ultrasound. 10:25 p.m. ultrasound returned, no acute process. Findings and laboratory results reviewed with the patient via mohel. Patient expresses understanding of all discharge instructions and has no further questions at this time. She would also like to trial a muscle relaxer. No further questions at this time. Medications Administered Discontinued Medications Generic Name Dose Route Start Last Admin Trade Name Chong PRN Reason Stop Dose Admin Acetaminophen 975 mg 07/26/24 22:11 07/26/24 22:14 Acetaminophen 325 Mg Tablet PO 07/26/24 22:12 975 mg ONCE ONE Administration Medical Decision Making Medical Decision Making MDM Narrative: 48-year-old female with a past medical history renal calculi, HLD, GERD, CKD, depression, presenting to the ED complaining of cloudy urine and low back pain x yesterday. on exam vital signs stable, NAD, nontoxic appearing, abdomen soft/nontender, bilateral CVAT noted. Concern for UTI vs pyelo vs renal stone. Lower suspicion for appendicitis / diverticulitis, ovarian pathology including STI, torsion or TOA Plan: UA, labs, ultrasound, re-evaluate Please refer to course for remaining clinical decision making, interpretation of labs/imaging results, and discussions with consultants and/or family members. Differential Diagnosis Differential Diagnoses: The differential diagnosis associated with the presentation includes As above Admission/Observation Consideration of admission/observation: Escalation of care including admission/observation considered Lab Data [facility] Lab Attestation statement: I reviewed the patient's lab results. 07/26/24 19:00 07/26/24 19:00 Labs: Lab Results 07/26/24 07/26/24 Range/Units 17:30 19:00 WBC 12.0 H (4.8-10.8) X10*3/uL RBC 4.98 (4.20-5.50) X10*6/uL Hgb 14.8 (12.0-16.0) g/dl Hct 43.8 (37.0-47.0) % MCV 88.0 (80.0-98.0) fL MCH 29.7 (27.0-33.0) pg MCHC 33.8 (31.0-35.0) g/dl RDW 13.1 (11.0-16.0) % Plt Count 304 (160-400) X10*3/uL MPV 9.5 (9.4-12.3) fL Immature Gran % (Auto) 0.4 (0.0-0.4) % Neut % (Auto) 60.9 (45-73) % Lymph % (Auto) 30.2 (20-40) % [place] % (Auto) 6.5 (2-11) % Eos % (Auto) 1.7 (0-4) % Baso % (Auto) 0.3 (0-2) % Lymph # (Auto) 3.6 (1.2-4.9) X10*3/uL [place] # (Auto) 0.8 (0.1-1.2) X10*3/uL Eos # (Auto) 0.2 (0.0-0.4) X10*3/uL Baso # (Auto) 0.0 (0.0-0.2) X10*3/uL Abs Immat Gran (auto) 0.05 H (0.00-0.03) X10*3/uL Absolute Neuts (auto) 7.3 (2.0-8.3) x10*3/uL Absolute Nucleated RBC 0.000 (0.0-0.012) X10*3/uL Nucleated RBC % (auto) 0.0 (0.0-0.2) /100WBC Sodium 140 (135-145) mmol/L Potassium 4.1 (3.3-5.1) mmol/L Chloride 107 (96-108) mmol/L Carbon Dioxide 26 (22-29) mmol/L Anion Gap 11 L (12-20) BUN 10 (9-16) mg/dL Creatinine 0.87 (0.5-1.4) mg/dL Estim Creat Clear Calc 104.9 Estimated GFR > 60 Random Glucose 91 (60-115) mg/dL Calcium 9.3 (8.4-10.2) mg/dL Magnesium 2.0 (1.6-2.6) mg/dL Total Bilirubin 0.5 (0.0-1.0) mg/dL Direct Bilirubin 0.2 (0.0-0.5) mg/dL AST 29 (5-31) U/L ALT 35 H (0-31) U/L Alkaline Phosphatase 122 H (39-117) U/L Total Protein 7.0 (6.5-8.0) g/dL Albumin 3.7 (3.5-5.0) g/dL Urine Color Yellow Urine Appearance Clear Urine pH 6.0 (5.0-9.0) Ur Specific [place] 1.025 (1.005-1.025) Urine Protein Negative (Neg-Trace) mg/dL Urine Glucose (UA) Negative (Negative) mg/dL Urine Ketones Trace (Negative) mg/dL Urine Blood Negative (Negative) Urine Nitrite Negative (Negative) Ur Leukocyte Esterase Negative (Negative) Urine RBC 0-2 (0-2) /HPF Urine WBC 0-5 (0-5) /HPF Ur Squamous Epith Cells 3-5 (0-2) /HPF Urine Bacteria None Seen (None Seen) Hyaline Casts 0-2 (0-2) /LPF Urine Test NEGATIVE (NEGATIVE) Independent Interpretation I performed an independent interpretation of an: Ultrasound Radiology Impression Discussion of test interpretation with radiology: I have reviewed the radiologist's reading. Radiologist Impression: [place] [id number] Ultrasound Report Signed Patient: Adela Damon MR#: [id number] : 1975 Acct:[id number] Age/Sex: 48 / F ADM Date: 07/26/24 Loc: .ED Attending Dr: Ordering Physician: Kinga Mckeon Date of Service: 07/26/24 Procedure(s): US renal BI Accession Number(s): [id number] cc: Kinga Mckeon; Milly Chambers MD~ EXAMINATION: US RETROPERITONEAL LIMITED (RENAL ONLY) CLINICAL INFORMATION: Bilateral flank pain. Cloudy urine.. COMPARISON: Renal ultrasound dated 12/20/2023. TECHNIQUE: Negative bilateral renal ultrasound was performed. FINDINGS: RIGHT KIDNEY: 12 x 5.3 x 4.9 cm (SAG x AP x TRV). The kidney is normal in size, contour, and echogenicity. Renal cortical thickness is normal. No calculi or focal parenchymal lesions. No hydronephrosis. LEFT KIDNEY: 11.7 x 5 x 4.1 cm (SAG x AP x TRV). The kidney is normal in size, contour, and echogenicity. Renal cortical thickness is normal. No focal parenchymal lesions. In the lower pole of the left kidney, echogenic reflectors are seen, possibly due to nonobstructing renal calculi versus prominent vascular interfaces. The 2 discrete 0.7 cm calcifications previously demonstrated the lower pole of the left kidney are not clearly appreciated on this exam. No hydronephrosis. US/US renal BI IMPRESSION: * Normal right kidney. * Echogenic reflectors are seen in the lower pole of the left kidney, possibly representing nonobstructing renal calculi versus prominent vascular interfaces. The 2 discrete 0.7 cm calcifications previously demonstrated in the lower pole of the left kidney are not clearly appreciated on this exam. * No evidence of hydronephrosis in either kidney. Electronically signed by: Suzette Torres MD 07/26/2024 10:14 PM EST Dictated By: Suzette Torres MD Signed By: <Electronically signed by Suzette Torres MD in OV> 07/26/242213 DD/ 10 TD/TT: 07/26/241915 Clinical Services Specialist: JAY External Record Review External record reviewed: Inpatient record, Office record, Outpatient record, Prior outpatient labs, Prior outpatient radiology, Primary care record and Outside ED record Tests considered The following testing was considered but not selected: As above Prescription Management I considered prescription management with: Pain Medication and Antibiotic Chronic Conditions Patient?s care impacted by: Diabetes, Hypertension and Other Social Determinants Patient?s care significantly limited by Social Determinants of Health including: Other Social Determinant of Health Discharge Plan Discharge Clinical Impression: Bilateral flank pain, Cloudy urine Patient Disposition: Home, Self-Care Instructions: Acute Low Back Pain (ED) Additional Instructions: Rest. Avoid strenuous activity. Robaxin as directed. Follow-up with your primary care provider. Call this week to schedule a follow- up appointment. Return to the emergency department if you have any worsening of symptoms, or any concerns. Get well soon! Prescriptions: New methocarbamol 750 mg tablet 750 mg PO TID PRN (Reason: muscle spasm) Qty: 20 0RF No Action atorvastatin 20 mg tablet 20 mg PO BEDTIME 90 Days Qty: 90 1RF metformin 500 mg tablet 500 mg PO BID 90 Days Qty: 180 1RF sumatriptan succinate 25 mg tablet 25 mg PO Q2-4H PRN (Reason: migraine headache) 30 Days Qty: 9 1RF Rx Instructions: do not exceed 8 doses per 24 hrs omeprazole 40 mg capsule,delayed release(DR/EC) 40 mg PO DAILY 90 Days Qty: 90 1RF pyridoxine (vitamin B6) 100 mg tablet 100 mg PO DAILY nitrofurantoin monohyd/m-cryst [Macrobid] 100 mg capsule 100 mg PO BID 7 Days Qty: 14 0RF Rx Instructions: must administer with a meal/food phenazopyridine [Pyridium] 200 mg tablet 200 mg PO TID 2 Days Qty: 6 0RF amitriptyline 10 mg tablet 10 mg PO BEDTIME ibuprofen 600 mg tablet 600 mg PO Q6H PRN (Reason: pain) Qty: 30 0RF acetaminophen [Tylenol Extra Strength] 500 mg tablet 1,000 mg PO QID PRN (Reason: pain) Qty: 30 0RF ofloxacin 0.3 % drops 10 drp otic (ears) DAILY 7 Days Qty: 10 0RF Mirena 20 mcg/24 hours (7 yrs) 52 mg intrauterine device 1 device intrauterine CONT polyethylene glycol 3350 [Miralax] 17 gram/dose powder 238 g PO ONCE PRN (Reason: laxative effect) 1 Days Qty: 238 0RF Rx Instructions: Take as directed by mouth the day before your procedure. amoxicillin-pot clavulanate 875-125 mg tablet 1 tab PO BID 10 Days Qty: 20 0RF Print Language: Bahamian
[2024-07-26 17:37] LABS: Appearance Urine Clear; Color Urine Yellow; Glucose Urine UA Negative (Negative); Leukocyte Esterase Urine Negative (Negative); Nitrite Urine Negative (Negative); Specific Gravity - Urine 1.025 (1.005-1.025); Urine Blood Negative (Negative); Urine Ketones Trace mg/dL (Negative); Urine Protein Negative (Neg-Trace)
[2024-07-26 17:39] LABS: Bacteria Urine None Seen (None Seen); Hyaline Casts Urine 0-2 /LPF (0-2); RBC Urine 0-2 /HPF (0-2); WBC Urine 0-5 /HPF (0-5)
[2024-07-26 18:11] VITALS: BP 143/97; PULSE 83; RESP 16; TEMP 36.7; O2SAT 97
[2024-07-26 18:22] LABS: UPreg QC Valid YES; Urine Pregnancy NEGATIVE (NEGATIVE)
[2024-07-26 19:04] LABS: MANUAL DIFF FLAG NO
[2024-07-26 19:09] LABS: Basophils Percent Auto 0.3 % (0-2); Eosinophils Absolute Auto 0.2 X10*3/uL (0.0-0.4); Eosinophils Percent Auto 1.7 % (0-4); Hematocrit 43.8 % (37.0-47.0); Hemoglobin 14.8 g/dl (12.0-16.0); Imm Gran Abs Auto 0.05 X10*3/uL (0.00-0.03); Imm Gran Pct Auto 0.4 % (0.0-0.4); Lymphocytes Absolute Auto 3.6 X10*3/uL (1.2-4.9); Lymphocytes Percent Auto 30.2 % (20-40); Mean Corpuscular HGB Conc 33.8 g/dl (31.0-35.0); Mean Corpuscular Hemoglobin 29.7 pg (27.0-33.0); Mean Platelet Volume 9.5 fL (9.4-12.3); Monocytes Absolute Auto 0.8 X10*3/uL (0.1-1.2); Monocytes Percent Auto 6.5 % (2-11); Neutrophils Absolute Auto 7.3 x10*3/uL (2.0-8.3); Neutrophils Percent Auto 60.9 % (45-73); Platelet Count 304 X10*3/uL (160-400); Red Blood Count 4.98 X10*6/uL (4.20-5.50); Red Cell Distribution Width 13.1 % (11.0-16.0)
[2024-07-26 19:24] LABS: Alanine Aminotransferase 35 U/L (0-31); Albumin Level 3.7 g/dL (3.5-5.0); Anion Gap 11 (12-20); Aspartate Amino Transferase 29 U/L (5-31); Bilirubin Direct 0.2 mg/dL (0.0-0.5); Bilirubin Total 0.5 mg/dL (0.0-1.0); Blood Urea Nitrogen 10 mg/dL (9-16); Calcium 9.3 mg/dL (8.4-10.2); Carbon Dioxide 26 mmol/L (22-29); Chloride 107 mmol/L (96-108); Creatinine Clr Calc Pharmacy 104.9; Estimated Glomerular Filt Rate > 60; Glucose Random 91 mg/dL (60-115); Potassium 4.1 mmol/L (3.3-5.1); Sodium 140 mmol/L (135-145)
[2024-07-26 19:49] LABS: Alkaline Phosphatase 122 U/L (39-117)
[2024-07-26 20:04] VITALS: BP 105/61; PULSE 80; RESP 16; TEMP 36.4; O2SAT 97
--- NOTE | 2024-07-26 21:39 | PC.NURSE ---
Anup Britt called to inquire about US read by ED US, still awating read.
[2024-07-26 22:03] VITALS: BP 136/89; PULSE 76; RESP 16; TEMP 36.4; O2SAT 96
[2024-07-26] MEDS: Acetaminophen 325 MG TABLET 975 MG PO (22:14)
[2024-07-26 22:41] VITALS: BP 136/89; PULSE 76; RESP 16; TEMP 36.4; O2SAT 96
== END 2024-07-26 22:41 | disposition home or self-care (01) ==
PROVIDERS: Physician Assistant; Emergency Provider Internal Medicine; PCP Internal Medicine
DX: R10.9 Unspecified abdominal pain (principal)
CPT/HCPCS: 36415; 76775; 80048; 80076; 81001; 81025; 83735; 85025; 99284

== ENCOUNTER 2024-08-19 10:50 | Outpatient (REF) | payer OTHER, SELFPAY ==
[2024-08-19 13:02] LABS: Appearance Urine Clear; Color Urine Yellow; Glucose Urine UA Negative (Negative); Leukocyte Esterase Urine Negative (Negative); Nitrite Urine Negative (Negative); PH 5.5 (5.0-9.0); Specific Gravity - Urine 1.025 (1.005-1.025); Urine Blood Negative (Negative); Urine Ketones Negative (Negative); Urine Protein Negative (Neg-Trace)
[2024-08-19 13:12] LABS: Anion Gap 13 (12-20); Blood Urea Nitrogen 11 mg/dL (9-16); Calcium 9.7 mg/dL (8.4-10.2); Carbon Dioxide 26 mmol/L (22-29); Chloride 107 mmol/L (96-108); Estimated Glomerular Filt Rate 58; Glucose Random 102 mg/dL (60-115); Potassium 4.1 mmol/L (3.3-5.1); Sodium 142 mmol/L (135-145)
== END 2024-08-19 10:51 | disposition home or self-care (01) ==
LOC: HO.LAB 10:50
PROVIDERS: PCP Internal Medicine; Visit Provider Internal Medicine Hypertension Specialist
DX: Z87.448 Personal history of other diseases of urinary system (principal)
CPT/HCPCS: 36415; 80048; 81003

== ENCOUNTER 2024-08-20 10:38 | Outpatient (AMB) | payer OTHER, SELFPAY ==
[2024-08-20 10:59] VITALS: BP 120/82; PULSE 83; O2SAT 97; BMI 50.5
--- NOTE | 2024-08-20 10:59 | HO.NEPHOV ---
Vital Signs 08/20/24 10:59 Height 5 ft 3 in Weight 285 lb BMI 50.5 BP 120/82 Blood Pressure Location Lt brachial Position Sitting Pulse 83 Pulse Source Pulse Oximeter Pulse Oximetry (%) 97 Oxygen Delivery Method Room Air Intake Visit Reasons: 6 mon follow up Strategy Execution Consultant Required: Yes Strategy Execution Consultant Name: kristy [id number] Accompanied by: Self / Same As Patient Allergies pollard Allergy (Intermediate, Verified 08/20/24 11:02) Itching raspberry Allergy (Intermediate, Verified 08/20/24 11:02) Itching No Known Drug Allergies Allergy (Unknown, Verified 08/20/24 11:02) Unknown HPI Comments Details: 48-year-old pleasant woman with multiple renal stones in the setting of diabetes mellitus. She had a left renal stent. She had a complicated UTI with fungal infection. The stent was removed. She underwent a 24 urine collection which showed mild hypercalciuria and hence the referral for management of nephrolithiasis. She has on a regular diet. The 24 urine collection showed a volume of 1180 mL. Today she has no specific complaints like dysuria urgency or hematuria. Or loin pain No shortness of breath cough or expectoration. No edema PFSH Medical History Kidney stone on left side Nephrolithiasis Morbid obesity with BMI of 45.0-49.9, adult Urinary tract infection Blurry vision, left eye Cervical spine pain Internal and external hemorrhoids without complication Hemorrhoids Renal calculi BMI 45.0-49.9, adult Thiamine deficiency Dyslipidemia GERD (gastroesophageal reflux disease) Hematuria Thickened endometrium Abnormal uterine bleeding (AUB) Pure hypercholesterolemia Insomnia Kidney stone Ectopic Surgical History Hx of lithotripsy H/O laparoscopy Hx of section Hx of cholecystectomy Hx of laparoscopic gastric banding Family History Mother Osteoporosis Glaucoma Migraine Ovarian cancer Uterine cancer Sister Uterine cancer Maternal Grandfather Diabetes mellitus Paternal Grandmother Diabetes mellitus HTN (hypertension) Maternal Uncle Throat cancer Father HIV (human immunodeficiency virus infection) Sister Heart abnormality Sister Heart abnormality Epilepsy Brother No problems noted. Son No problems noted. 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al exposures/hazards: No Gender identity: Female Cognitive needs: No Hearing needs: No Vision needs: Yes (glasses) Female Reproductive History Menstrual Age of Menarche: 14 Physical Exam Vital Signs: Last Vital Signs Pulse 83 08/20/24 10:59 BP 120/82 08/20/24 10:59 Pulse Ox 97 08/20/24 10:59 Oxygen Delivery Method Room Air 08/20/24 10:59 BMI result Body Mass Index 50.5 Results Reviewed Nephrology Results: Hgb 14.8 g/dl (12.0-16.0) 07/26/24 WBC 12.0 X10*3/uL (4.8-10.8) H 07/26/24 Plt Count 304 X10*3/uL (160-400) 07/26/24 Sodium 142 mmol/L (135-145) 08/19/24 Potassium 4.1 mmol/L (3.3-5.1) 08/19/24 Chloride 107 mmol/L (96-108) 08/19/24 Carbon Dioxide 26 mmol/L (22-29) 08/19/24 BUN 11 mg/dL (9-16) 08/19/24 Creatinine 1.02 mg/dL (0.5-1.4) 08/19/24 Calcium 9.7 mg/dL (8.4-10.2) 08/19/24 Urine Protein Negative mg/dL (Neg-Trace) 08/19/24 Renal US 07/26/24 Assessment & Plan Assessment & Plan (1) History of pyelonephritis: Code(s): Z87.448 - Personal history of other diseases of urinary system Category: Medical (2) Bilateral kidney stones: Code(s): N20.0 - Calculus of kidney Category: Medical (3) CKD (chronic kidney disease): Code(s): N18.9 - Chronic kidney disease, unspecified Category: Medical Plan 48-year-old woman with multiple renal stones. Currently she has no evidence of any obstruction. She had a left ureteral stent which was complicated with a fungal UTI. The left stent has been removed. Twenty-four urine collection in November of 2023 revealed mild hypercalciuria with increased uric acid excretion. Repeat 24 hour urine Collection in February 2024 revealed normal calcium excretion with normal uric acid excretion. Urine volume was 2100 cc Citrate excretion was normal Serum calcium was normal. She has mild CKD with a EGFR of 47 mL/minute in October 2023. Recent creatinine was 1.02. with egfr of > 60 Plan She should stay on a low-sodium diet I have discussed this with her. She is to increase her fluid intake to maintain a urine output of at least 2 L per 24 hours. Increase citrate intake/Lemonade. Encouraged to drink lemonade Coding Level of Care Code Est Pt Level 4 (96286) Diagnoses History of pyelonephritis Z87.448 Bilateral kidney stones N20.0 CKD (chronic kidney disease) N18.9
== END 2024-08-20 11:14 | disposition home or self-care (01) ==
PROVIDERS: PCP Internal Medicine; Visit Provider Internal Medicine Hypertension Specialist
DX: N20.0 Calculus of kidney (principal); N18.2 Chronic kidney disease, stage 2 (mild); Z87.448 Personal history of other diseases of urinary system
CPT/HCPCS: 99214

== ENCOUNTER → 2024-08-20 10:38 | Outpatient (BNVA) | payer OTHER, SELFPAY | PROVIDERS: PCP Internal Medicine; Visit Provider Internal Medicine Hypertension Specialist | DX: N18.9 Chronic kidney disease, unspecified (principal); N20.0 Calculus of kidney; Z87.448 Personal history of other diseases of urinary system | CPT/HCPCS: 99212 ==

== ENCOUNTER 2024-09-03 14:47 | Outpatient (REF) | payer OTHER, SELFPAY ==
--- NOTE | ~2024-09-03 | XR_ITS ---
CLINICAL HISTORY: N20.0 - Calculus of kidney 1 view abdomen Comparison: None Findings: Nonspecific bowel gas pattern. Slight increased stool burden. No pneumoperitoneum or pneumatosis. 3 mm and 2 mm calculus projected at the level of the lower pole left kidney. Renal and psoas margins are normal. No organomegaly. No acute fracture. Surgical clips right upper quadrant. Gastric lap band present. IUD in the pelvis. Impression: 1. Slight increased stool burden. 2. 3 mm and 2 mm calculi lower pole left kidney. This document has been electronically signed by: Connor Orosco MD on 09/05/2024 10:51:44
== END 2024-09-03 14:48 | disposition home or self-care (01) ==
LOC: HO.XRAY 14:47
PROVIDERS: Visit Provider Urology
DX: N20.0 Calculus of kidney (principal)
CPT/HCPCS: 74018

== ENCOUNTER → 2024-09-03 14:52 | Outpatient (BNV) | payer OTHER, SELFPAY | PROVIDERS: Visit Provider Radiology Diagnostic Radiology | DX: N20.0 Calculus of kidney (principal) | CPT/HCPCS: 74018 ==

== ENCOUNTER 2024-09-05 11:27 | Outpatient (AMB) | payer OTHER, SELFPAY ==
--- NOTE | 2024-09-05 11:28 | A.OFFVIS_ITS ---
Intake Visit Reasons: xray followup Intake Note: Patient is present for XRAY F/U Urology Medication:NONE Antibiotic Allergy:NONE Blood Thinner:NONE Emergency Response Officer Required: Yes Emergency Response Officer Name: [id number] Information Interpreted: non-clinical & clinical Allergies pollard Allergy (Intermediate, Verified 09/05/24 11:29) Itching raspberry Allergy (Intermediate, Verified 09/05/24 11:29) Itching No Known Drug Allergies Allergy (Unknown, Verified 09/05/24 11:29) Unknown Medication List - Last Reconciled 09/05/24 by Kareem Solorio MD acetaminophen (Tylenol Extra Strength) 1,000 mg (2 x 500 mg) PO QID PRN amitriptyline 10 mg PO BEDTIME atorvastatin 20 mg PO BEDTIME 90 days ibuprofen 600 mg PO Q6H PRN levonorgestrel (Mirena) 1 device intrauterine CONT metformin 500 mg PO BID 90 days methocarbamol 750 mg PO TID PRN ofloxacin 0.3% 10 drps otic (ears) DAILY 7 days omeprazole 40 mg PO DAILY 90 days polyethylene glycol 3350 (Miralax) 238 grams PO ONCE PRN 1 day pyridoxine (vitamin B6) 100 mg PO DAILY sumatriptan succinate 25 mg PO Q2-4H PRN 30 days HPI Comments Details: 09/05/24--Lenore presents for Telehealth follow-up, she is followed for kidney stones. She previously had complications with UTI with fungemia requiring admission 08/2023 and was evaluated by Infectious Disease at that time. Currently asymptomatic. She was referred to Nephrology due to hypercalciuria. Discussed fu imaging KUB and renal US - left kidney stones stable, in the lower pole. Will cont to monitor. FU in 6 months. Cont. Vit b6. Reviewed chart: 01/04/2024--Lenore is here in follow-up , she is followed for kidney stones. She previously had complications with UTI in fungemia requiring admission and was evaluated by Infectious Disease. I have reviewed 24 hour urine collection and renal ultrasound. She states she is doing okay denies renal colic hematuria. Discussed 24 hour urine results: Total volume 1.18 mL, Calcium 235 mg; Oxalate 32 mg, Sodium 204, Citrate 839 mg. Instructed on importance of fluid intake, Low oxalate diet, low sodium diet. Reviewed renal ultrasound 12/20/2023 again notes bilateral nonobstructing renal calculi. Discussed plan Refer to nephrology due to hypercalciuria. Will monitor kidney stones follow-up in 6 months KUB prior. 10/26/23--Adela is a 47-year-old female who presents today, she was last evaluated as an inpatient she was admitted for UTI sepsis from fungemia. She was evaluated by Infectious Disease. During hospitalization ureteral stent was removed. She states that she has been doing well she denies dysuria she denies urinary incontinence. I reviewed with the patient that the CT imaging that was done during the inpatient visit on 08/31/2023 noted 2 stone fragments in the left lower pole kidney 3 mm in 6 mm. Plan discussed- Monitor Kidneys renal sono, KUB, 24 hr urine Cont Vit B6 100 mg daily 08/31/23--CTAP: KIDNEYS AND URETERS: The kidneys are normal in size, shape, and attenuation. There is 3 mm and 6 mm radiopaque calculi adjacent to each other in lower pole calyx left kidney without caliectasis. 07/26/2023-- She is followed today s/p ureteroscopy laser lithotripsy stent insertion. Kub Xray I have discussed with the patient that the KUB X-ray is not officially read; however, on my inspection there may be a calcification along the left ureteral stent as well as few calcifications over the left lower pole of the left kidney. I have discussed repeat ureteroscopy and retrograde with stent removal and possible lithotripsy, stone extraction as needed. Cystoscopy not done today. 07/13/2023--She presents today for an evaluation of kidney stones. PMH of obesity, kidney stones, anxiety, HLD, prediabetes, recurrent UTI, and GERD The patient is a [place] speaking female. Certified hot mill operator was present during the Tele-health visit. I reviewed the CAT scan of the abdomen/pelvis results from 07/09/2023 revealed a 6 mm right proximal ureteral stone and bilateral non obstructing kidney calculi. Patient states that she has never passed a kidney stone in the past. She states that she has had kidney stones in the past. Patient has had prior procedures include shock wave lithotripsy as well as previous stent for the kidney stones. 07/26/2023: Plan:Repeat ureteroscopy and retrograde with stent removal and possible lithotripsy, stone extraction was discussed to be scheduled. Ordered Veiscare 10 mg for her bladder spasms. [facility] Medical History Kidney stone on left side Nephrolithiasis Morbid obesity with BMI of 45.0-49.9, adult Urinary tract infection Blurry vision, left eye Cervical spine pain Internal and external hemorrhoids without complication Hemorrhoids Renal calculi BMI 45.0-49.9, adult Thiamine deficiency Dyslipidemia GERD (gastroesophageal reflux disease) Hematuria Thickened endometrium Abnormal uterine bleeding (AUB) Pure hypercholesterolemia Insomnia Kidney stone Ectopic Surgical History Hx of lithotripsy H/O laparoscopy Hx of section Hx of cholecystectomy Hx of laparoscopic gastric banding Family History Mother Osteoporosis Glaucoma Migraine Ovarian cancer Uterine cancer Sister Uterine cancer Maternal Grandfather Diabetes mellitus Paternal Grandmother Diabetes mellitus HTN (hypertension) Maternal Uncle Throat cancer Father HIV (human immunodeficiency virus infection) Sister Heart abnormality Sister Heart abnormality Epilepsy Brother No problems noted. Son No problems noted. 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al exposures/hazards: No Gender identity: Female Cognitive needs: No Hearing needs: No Vision needs: Yes (glasses) Female Reproductive History Menstrual Age of Menarche: 14 Telehealth Telehealth Telehealth Platform: Telephone Location of provider rendering services: practice address Location of patient: address on file Patient Identification confirmed using: Name, : Yes Telehealth method: voice only Patient verbally consented to treatment: Yes Patient verbally consented to billing insurance company: Yes Patient informed of any privacy concerns related to visit: Yes Minutes spent on Phone/Video with Pt.: 13 Results Reviewed Results Reviewed: Date of Service: 09/03/24 Procedure(s): XR KUB CLINICAL HISTORY: N20.0 - Calculus of kidney 1 view abdomen Comparison: None Findings: Nonspecific bowel gas pattern. Slight increased stool burden. No pneumoperitoneum or pneumatosis. 3 mm and 2 mm calculus projected at the level of the lower pole left kidney. Renal and psoas margins are normal. No organomegaly. No acute fracture. Surgical clips right upper quadrant. Gastric lap band present. IUD in the pelvis. Impression: 1. Slight increased stool burden. 2. 3 mm and 2 mm calculi lower pole left kidney. Date of Service: 07/26/24 US RETROPERITONEAL LIMITED (RENAL ONLY) CLINICAL INFORMATION: Bilateral flank pain. Cloudy urine.. COMPARISON: Renal ultrasound dated 12/20/2023. TECHNIQUE: Negative bilateral renal ultrasound was performed. FINDINGS: RIGHT KIDNEY: 12 x 5.3 x 4.9 cm (SAG x AP x TRV). The kidney is normal in size, contour, and echogenicity. Renal cortical thickness is normal. No calculi or focal parenchymal lesions. No hydronephrosis. LEFT KIDNEY: 11.7 x 5 x 4.1 cm (SAG x AP x TRV). The kidney is normal in size, contour, and echogenicity. Renal cortical thickness is normal. No focal parenchymal lesions. In the lower pole of the left kidney, echogenic reflectors are seen, possibly due to nonobstructing renal calculi versus prominent vascular interfaces. The 2 discrete 0.7 cm calcifications previously demonstrated the lower pole of the left kidney are not clearly appreciated on this exam. No hydronephrosis. IMPRESSION: * Normal right kidney. * Echogenic reflectors are seen in the lower pole of the left kidney, possibly representing nonobstructing renal calculi versus prominent vascular interfaces. The 2 discrete 0.7 cm calcifications previously demonstrated in the lower pole of the left kidney are not clearly appreciated on this exam. * No evidence of hydronephrosis in either kidney. Date of Service: 12/20/23 EXAMINATION: US RETROPERITONEAL COMPLETE (RENAL) CLINICAL INFORMATION: Other microscopic hematuria. COMPARISON: CT abdomen and pelvis 08/31/2023. X-ray abdomen KUB 08/14/2023. Renal ultrasound 06/17/2022 and 10/07/2021. TECHNIQUE: Real-time imaging of the kidneys and bladder. FINDINGS: RIGHT KIDNEY: 11.3 x 4.7 x 5.8 cm (SAG x AP x TRV). The kidney is normal in size, contour, and echogenicity. Renal cortical thickness is normal. No focal parenchymal lesions or hydronephrosis. At the upper pole, a 4 mm nonobstructing calculus is seen. LEFT KIDNEY: 12.6 x 4.8 x 5.3 cm (SAG x AP x TRV). The kidney is normal in size, contour, and echogenicity. Renal cortical thickness is normal. No focal parenchymal lesions or hydronephrosis. At the lower pole, a 7 mm and 7 mm nonobstructing calculi are seen. BLADDER: Well distended and normal. Bilateral ureteral jets are demonstrated. Prevoid bladder volume is 184 mL. Postvoid bladder volume is 13 mL. IMPRESSION: Nonobstructing bilateral renal calculi are seen, as detailed. There is no hydronephrosis. Date of Service: 08/31/23 EXAMINATION: CT ABDOMEN AND PELVIS WITHOUT AND WITH CONTRAST CLINICAL INFORMATION: 4 anemia. Evaluate for stone. COMPARISON: None available. TECHNIQUE: Multidetector volumetric imaging was performed of the abdomen and pelvis before and after the IV administration of 85 mL of Omnipaque 350 intravenous contrast. Sagittal and coronal reformatted images were obtained on the technologist's workstation. This CT examination was performed using dose optimization techniques as appropriate, variously including the following: *Automated exposure control *Adjustment of mA and/or kV according to patient size (this includes techniques or standardized protocols for targeted exams where dose is matched to indication/reason for exam; i.e. extremities or head) *Use of iterative reconstruction technique DLP: 1737 mGy-cm FINDINGS: LUNG BASES: There is platelike atelectasis right lower lobe. Heart size is normal. LIVER, GALLBLADDER, AND BILIARY TREE: The liver is normal in size, shape, and attenuation. No focal hepatic lesion or biliary ductal dilatation is present. The gallbladder has been surgically removed. PANCREAS: Unremarkable SPLEEN: Unremarkable ADRENAL GLANDS: Unremarkable KIDNEYS AND URETERS: The kidneys are normal in size, shape, and attenuation. There is 3 mm and 6 mm radiopaque calculi adjacent to each other in lower pole calyx left kidney without caliectasis. There is a left ureteral stent with no radiopaque calculi seen adjacent or surrounding the stent in the kidney pelvis or the ureter.. Postcontrast both kidney nephrograms are symmetrical in size. Small cortical defect upper pole likely scarring. No enhancing renal mass, cyst or hydronephrosis seen. BLADDER: The bladder is nondistended and appears unremarkable. GASTROINTESTINAL TRACT: Scattered stool and gas is seen throughout the colon without significant distention. The small bowel loops are normal caliber. Appendix is not visualized no free air or free fluid. ABDOMINAL WALL: There is no evidence of hiatal hernia. There are punctate gas seen within the anterior abdominal wall likely related to 2 subcutaneous injections. LYMPH NODES: There are multiple small left para-aortic lymph nodes visualized with largest nodes measuring 1.4 and 1.7 cm. VASCULAR: Unremarkable PELVIC VISCERA: The uterus is anteverted with an IUD well located within endometrial canal. OSSEOUS STRUCTURES: No aggressive lytic or sclerotic process seen. IMPRESSION: 1. Nonobstructive radiopaque calculi lower pole left kidney. There is a left ureteral stent with no radiopaque calculi seen adjacent to or surrounding the stent in the kidney pelvis or the ureter. 2. Mild constipation. Assessment & Plan Assessment & Plan (1) History of pyelonephritis: Code(s): Z87.448 - Personal history of other diseases of urinary system Category: Medical (2) Bilateral kidney stones: Code(s): N20.0 - Calculus of kidney Category: Medical (3) CKD (chronic kidney disease): Code(s): N18.9 - Chronic kidney disease, unspecified Category: Medical Plan Will cont to monitor. FU in 6 months. Cont. Vit b6. Orders: Orders US renal BI 6 Months N20.0 - Calculus of kidney Medications: New pyridoxine (vitamin B6) 100 mg PO DAILY 90 tabs 3RF for kidney stones Patient Instructions: The patient had an opportunity to ask questions regarding treatment plan. The patient expressed understanding and agreement with the above treatment plan. The patient is aware they should contact our office by phone for worsening of their current condition or the appearance of new symptoms. Compliance is encouraged with any medications and followup testing that is ordered. It is a privilege to be allowed the opportunity to participate in the urologic care of your patient. If you have any questions or concerns regarding treatment for the above conditions please do not hesitate to contact me. The office telephone contact is [phone]. This note is constructed in part using voice recognition software. While every effort has been made to ensure accuracy hr administrator errors may have been included. Yours sincerely, Kareem Solorio MD Coding Level of Care Code Tele Est Pt Level 3 (11500) Diagnoses History of pyelonephritis Z87.448 Bilateral kidney stones N20.0 CKD (chronic kidney disease) N18.9
== END 2024-09-05 12:59 | disposition home or self-care (01) ==
LOC: HO.HUSH 11:27
PROVIDERS: Visit Provider Urology
DX: N20.0 Calculus of kidney (principal); N18.9 Chronic kidney disease, unspecified; Z87.448 Personal history of other diseases of urinary system
CPT/HCPCS: 99213

== ENCOUNTER → 2024-09-05 11:27 | Outpatient (BNVA) | payer OTHER, SELFPAY | PROVIDERS: Visit Provider Urology ==

== ENCOUNTER 2024-09-11 08:47 | Outpatient (AMB) | payer OTHER, SELFPAY ==
--- NOTE | 2024-09-11 09:23 | A.OFFVIS_ITS ---
Vital Signs 3 09/11/24 09:24 Height 5 ft 3 in Weight 282 lb 3.067 oz BMI 50.0 BP 122/74 Blood Pressure Location Lt brachial Position Sitting Pulse 80 Intake Visit Reasons: chronic constipation/Ara pt Intake Note: Adela presents in the office as a Ara patient follow up for constipation. CC: She states that she is no longer having the constipation but she does have acid reflux. Student Finance Specialist Required: Yes Student Finance Specialist Name: [id number] Luz Marina Allergies pollard Allergy (Intermediate, Verified 09/11/24 09:27) Itching raspberry Allergy (Intermediate, Verified 09/11/24 09:27) Itching HPI Comments Details: 48y.o F with PMH of obesity s/p gastric band 2010 ([facility]), diabetes, who is coming in for results of colo and dysphagia. Colonoscopy 02/05/24: No polyps. Repeat recommended in 5 years due to prep. Pt also reports dysphagia ongoing x years. Feels food gets hung up mid esophagus and often regurgitates. Happens with both liquids and solids. Barium swallow results discussed with the pt - says has been deflated x years since her GB surgery. Barium swallow 01/2024: 1. Mild gastroesophageal reflux. 2. Status post gastric band procedure. No definite band slippage based on 50-degree phi angle. The band is causing a significant stricture, however, barium does pass into the distal stomach without high-grade delay. 3. 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 [facility] Medical History Kidney stone on left side Nephrolithiasis Morbid obesity with BMI of 45.0-49.9, adult Urinary tract infection Blurry vision, left eye Cervical spine pain Internal and external hemorrhoids without complication Hemorrhoids Renal calculi BMI 45.0-49.9, adult Thiamine deficiency Dyslipidemia GERD (gastroesophageal reflux disease) Hematuria Thickened endometrium Abnormal uterine bleeding (AUB) Pure hypercholesterolemia Insomnia Kidney stone Ectopic Surgical History Hx of lithotripsy H/O laparoscopy Hx of section Hx of cholecystectomy Hx of laparoscopic gastric banding Family History Mother Osteoporosis Glaucoma Migraine Ovarian cancer Uterine cancer Sister Uterine cancer Maternal Grandfather Diabetes mellitus Paternal Grandmother Diabetes mellitus HTN (hypertension) Maternal Uncle Throat cancer Father HIV (human immunodeficiency virus infection) Sister Heart abnormality Sister Heart abnormality Epilepsy Brother No problems noted. Son No problems noted. 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09 - Other complications of gastric band procedure Category: Medical (2) Abnormal barium swallow: Code(s): R93.3 - Abnormal findings on diagnostic imaging of other parts of digestive tract Category: Medical (3) Dysphagia: Code(s): R13.10 - Dysphagia, unspecified Category: Medical (4) Diabetes mellitus: Code(s): E11.9 - Type 2 diabetes mellitus without complications Category: Medical (5) Fatty liver: Code(s): K76.0 - Fatty (change of) liver, not elsewhere classified Category: Medical (6) Obesity: Code(s): E66.9 - Obesity, unspecified Category: Medical (7) Elevated LFTs: Code(s): R79.89 - Other specified abnormal findings of blood chemistry Category: Medical Plan 1. Dysphagia 2/2 to tight lap band causing stricture, delayed transition if contents into stomach and a pulsion diverticulum. Will need to be referred back to bariatrics. 2. Elevated LFTs Educated that has had abnormal LFTs since at least 2019. In the absence of etOH use and high risk behaviour, likely secondary to MAFLD/CASTELLANOS however will obtain labs to r/o other causes. Will also obtain US Abd. Plan: - Labs and US ordered - Counseled on at least 10% TBW loss over 6 months - Limited role of Vit E as not biopsy proven CASTELLANOS - Encouraged to discuss GLP 1 RA with her PCP which will help with i) DM, ii) fatty liver and iii) weight loss Follow up 1 year Orders: Orders 2 Alpha 1 Anti-trypsin Today R7.89 - Other specified abnormal findings of blood chemistry Alkaline Phosphatase Isoenzyme Today R79.89 - Other specified abnormal findings of blood chemistry Ceruloplasmin Today R79.89 - Other specified abnormal findings of blood chemistry Ferritin Today R79.89 - Other specified abnormal findings of blood chemistry Hemoglobin A1c Today R79.89 - Other specified abnormal findings of blood chemistry Hepatitis A IgG Today R79.89 - Other specified abnormal findings of blood chemistry Hepatitis B Surface Antigen Today R79.89 - Other specified abnormal findings of blood chemistry HIV Ab/Ag Today R79.89 - Other specified abnormal findings of blood chemistry Immunoglobulin A Today R79.89 - Other specified abnormal findings of blood chemistry Liver Kidney Microsomal Ab Today R79.89 - Other specified abnormal findings of blood chemistry Lipid Panel Today R79.89 - Other specified abnormal findings of blood chemistry Liver Panel Today R79.89 - Other specified abnormal findings of blood chemistry Phosphatidylethanol, Blood Today R79.89 - Other specified abnormal findings of blood chemistry Smooth Muscle Antibody Today R79.89 - Other specified abnormal findings of blood chemistry Transglutaminase IgA Today R79.89 - Other specified abnormal findings of blood chemistry US abdomen complete Today E11.9 - Type 2 diabetes mellitus without complications, K76.0 - Fatty (change of) liver, not elsewhere classified CARMELA Reflex Titer and Pattern Today R79.89 - Other specified abnormal findings of blood chemistry Hepatitis B Surface Antibody Today R79.89 - Other specified abnormal findings of blood chemistry Hepatitis C Antibody Today R79.89 - Other specified abnormal findings of blood chemistry Hepatitis B Core Antibody Today R79.89 - Other specified abnormal findings of blood chemistry Immunoglobulin G Today R79.89 - Other specified abnormal findings of blood chemistry IRON PROFILE Today R79.89 - Other specified abnormal findings of blood chemistry Mitochondrial Antibody Today R79.89 - Other specified abnormal findings of blood chemistry TSH reflex Free T4 Today R79.89 - Other specified abnormal findings of blood chemistry Referrals 2 Bariatric Surgery Referral E66.9 - Obesity, unspecified, K95.09 - Other complications of gastric band procedure Coding Level of Care Code Est Pt Level 5 (73350) Complex EM visit Add On G2211 Diagnoses Gastric band malfunction K95.09 Abnormal barium swallow R93.3 Dysphagia R13.10 Diabetes mellitus E11.9 Fatty liver K76.0 Obesity E66.9 Elevated LFTs R79.89
[2024-09-11 09:24] VITALS: BP 122/74; PULSE 80; BMI 50.0
== END 2024-09-11 10:53 | disposition home or self-care (01) ==
PROVIDERS: PCP Internal Medicine; Visit Provider Internal Medicine
DX: K95.09 Other complications of gastric band procedure (principal); R93.3 Abnormal findings on diagnostic imaging of other parts of digestive tract; R13.10 Dysphagia, unspecified; K76.0 Fatty (change of) liver, not elsewhere classified; R79.89 Other specified abnormal findings of blood chemistry
CPT/HCPCS: 99214; G2211

== ENCOUNTER → 2024-09-11 08:47 | Outpatient (BNVA) | payer OTHER, SELFPAY | PROVIDERS: PCP Internal Medicine; Visit Provider Internal Medicine | DX: K95.09 Other complications of gastric band procedure (principal); K76.0 Fatty (change of) liver, not elsewhere classified; R93.3 Abnormal findings on diagnostic imaging of other parts of digestive tract; R13.10 Dysphagia, unspecified; R79.89 Other specified abnormal findings of blood chemistry; E11.9 Type 2 diabetes mellitus without complications; E66.9 Obesity, unspecified; Z68.43 Body mass index [BMI] 50.0-59.9, adult | CPT/HCPCS: 99212 ==

== ENCOUNTER 2024-09-25 08:11 | Outpatient (AMB) | payer OTHER, SELFPAY ==
--- OUTSIDE RECORDS SUMMARY | 2024-09-25 08:13 | XMS_ITS | Encounter Summary ---
Author Organization [employer] Address [address] [place] [address] Care Team Providers Care Blood Bank Specialist Name Role Phone Unavailable Primary Care Provider Unavailabl e Encounter Details Date Type Department Care Team (Latest Contact Info) Description 09/26/2019 Abstract [facility] CONVERSIONS Dental, Provider, DDS Social History Tobacco Use Types Packs/Day Years Used Date Smoking Tobacco: Never Assessed Comments Unknown Sex and Gender Information Value Date Recorded Sex Assigned at Female 07/04/2022 10:18 AM EDT Legal Sex Female 10:18 AM EDT Gender Identity Female 07/04/2022 10:18 AM EDT Sexual Orientation Straight 07/04/2022 10 :18 AM EDT documented as of this encounter Plan of Treatment Upcoming Encounters Date Type Department Care Team (Late st Contact Info) Description 02/12/2025 10:00 AM EDT Office Visit [facility] ADULT DENTAL [address] [place] [address] Jesus, Yanet [address] [place] [address] documented as of this encounter Visit Diagnoses Not on filedocumented in this encounter
--- OUTSIDE RECORDS SUMMARY | 2024-09-25 08:13 | XMS_ITS | Encounter Summary ---
Author Organization [employer] Address [address] [place] [address] Care Team Providers Care Automatic Pad Making Machine Operator Name Role Phone Unavailable Primary Care Provider Unavailabl e Encounter Details Date Type Department Care Team (Latest Contact Info) Description 07/05/2021 Abstract [facility] CONVERSIONS Dental, Provider, DDS Social History Tobacco [...] Description 02/12/2025 10:00 AM EDT Office Visit [facility] ADULT DENTAL [address] [place] [address] Jesus, Yanet [address] [place] [address] documented as of this encounter Visit Diagnoses Not on filedocumented in this encounter
--- OUTSIDE RECORDS SUMMARY | 2024-09-25 08:13 | XMS_ITS | Clinical Summary ---
Author Organization [employer] Address [address] [facility] [address] [place] [address] Care Team Providers Care Contract Engineer Name Role Phone Unavailable Primary Care Provider Unavailabl e Allergies Active Allergy Reactions Criticality Noted Date Comments Gramineae Pollens Itching 02/14/2023 Itchy throat Actical 12/11/2023 Medications amitriptyline (Elavil) 10 MG tablet Take 10 mg by mouth at bedtime. 01/31/2023 Active atorvastatin (Lipitor) 20 MG tablet Take 20 mg by mouth at bedtime. 11/26/2022 Active Bisacodyl EC 5 MG EC tablet TAKE 2 TABLETS BY MOUTH AT 12:00PM THE DAY BEFORE YOUR PROCEDURE. 01/18/2023 Active metFORMIN (Glucophage) 500 MG tablet Take 500 mg by mouth 2 times daily. 11/26/2022 Active omeprazole (PriLOSEC) [address] capsule Take 40 mg by mouth in the morning. 10/08/2022 Active GaviLAX 17 GM/SCOOP powder MIX AND DRINK 17 GRAMS DAILY 01/18/2023 Active pyridoxine (Vitamin B-6) 100 MG tablet Take 100 mg by mouth in the morning. 01/04/2023 Active Active Problems Problem Noted Date Diagnosed Date Chronic back pain 11/17/2023 History of ectopic 11/17/2023 History of nephrolithiasis 11/17/2023 History of cholecystectomy 11/17/2023 Personal history of gastric banding 11/17/2023 Hyperlipidemia 11/17/2023 Morbid obesity 11/17/2023 Postoperative state 11/17/2023 Dental caries 03/08/2023 Dental plaque 02/14/2023 Fractured dental mandaeism with loss of materi al 02/14/2023 Family history of ovarian cancer 11/09/2016 Family history of uterine cancer 11/09/2016 Vitamin D deficiency 05/25/2014 Abnormal LFTs 08/09/2012 Biliary colic 06/18/2012 Constipation 06/14/2012 Disorder of female genital organs 06/14/2012 Dyslipidemia 06/14/2012 History of oophorectomy, unilateral 06/14/2012 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 rehan fied surface antigen) 06/14/2012 Influenza, Unspecified 06/24/2014 MMR 04/01/2015,06/10/2009,09/10/2004 Pneumococcal Polysaccharide PPSV23 09/09/2017 Tdap 03/18/2015,02/11/2011 Social History Tobacco Use Types Packs/Day Years Used Date Smoking Tobacco: Never Passive Smoke Exposure: Never Smokeless Tobacco: Never Tobacco Cessation:Counseling Given: Not Answered Alcohol Use Standard Drinks/Week Comments Defer 0 (1 standard drink = 0.6 oz pur e alcohol) Comments Unknown Sex and Gender Information Value Date Recorded Sex Assigned at Female 07/04/2022 10:18 AM EDT Legal Sex Female 10:18 AM EDT Gender Identity Female 07/04/2022 10:18 AM EDT Sexual Orientation Straight 07/04/2022 10 :18 AM EDT Last Filed Vital Signs Vital Sign Reading Time Taken Comments Blood Pressure 128/76 06/05/2024 9:50 AM EDT Pulse 72 10/19/2023 11:04 AM EST Temperature - - Respiratory Rate - - Oxygen Saturation - - Inhaled Oxygen Concentration - - Weight - - Height - - Body Mass Index - - Plan of Treatment Upcoming Encounters Date Type Department Care Team (Late st Contact Info) Description 02/12/2025 10:00 AM EDT Office Visit [facility] ADULT D[facility]AL [address] [place] [address] Socrates Leearis [address] [place] [address] Health Maintenance Due Date Last Done Comments CT Colonography 1977 Colonoscopy 1977 Colorectal Cancer Screening 1977 Depression Screening 1977 FIT DNA/Cologuard 1977 FIT 1977 FOBT 1977 HIV Screening 1977 Lipid Panel 1977 SDOH Screening 1977 Sigmoidoscopy 1977 Alcohol/Substance Use Screening 1989 Hepatitis C Screening 12/07/1995 Pap Smear 1998 Cervical Cancer Screening 12/07/2007 HPV/Cotest 12/07/2007 Mammogram 2017 Dental Oral Exam 04/19/2024 10/19/2023, , 07/05/2021, Additional history exists COVID-19 Vaccine ( season) 2024 05/04/2021, 04/13/2021 Influenza Vaccine (#1) 2024 , 06/03/2020, 09/25/2018, Additional history exists Dental Prophylaxis 12/05/2024 06/05/2024, 0 10/19/2023, 02/14/2023, Additional history exists Dental X-Ray: Bitewings 01/18/2025 01/18/20 24, 02/14/2023, 07/05/2021, Additional history exists Tobacco Screening 06/05/2025 06/05/2024 Dental X-Ray: Full Mouth 11/17/2026 024, 02/14/2023, 06/26/2019, Additional history exists Zoster Vaccines (1 of 2) 12/07/2027 DTaP/Tdap/Td Vaccines (4 - Td or Tdap) 11/29/2033 11/30/2023, 03/18/2015, 02/11/2011 RSV Patients and Patients Aged 60 years or older (1 - 1-dose 75+ series) 2052 Hepatitis A Vaccines Aged Out 06/14/2012 No long er eligible based on patient's age to complete this topic Hepatitis B Vaccines Completed 06/28/2012, 09/22/2004, 08/19/2004 Pneumococcal Vaccine: Pediatrics (0 to 5 Years) and At-Risk Patients (6 to 64 Years) Aged Out 09/09/2017 No longer eligible based on patient's age to complete this topic HIB Vaccines Aged Out No longer eligi ble based on patient's age to complete this topic HPV Vaccines Aged Out No longer eligi ble based on patient's age to complete this topic IPV Vaccines Aged Out No longer eligi ble based on patient's age to complete this topic Meningococcal Vaccine Aged Out No fitz latoya eligible based on patient's age to complete this topic RSV under 20 months Aged Out No longe r eligible based on patient's age to complete this topic Rotavirus Vaccines Aged Out No longer eligible based on patient's age to complete this topic Procedures Procedure Name Priority Date/Time Associated Diagnosis Comments PROPHYLAXIS - ADULT Routine 06/05/2024 1 0:00 AM EDT BITEWING - SINGLE RADIOGRAPHIC IMAGE Routine 01/18/2024 11:00 AM EDT Full coverage crown needed for root canal-treated tooth PANORAMIC RADIOGRAPHIC IMAGE Routine 11/17/2023 11:30 AM EDT Acute pulpitis PERIODIC ORAL EVALUATION - ESTABLISHED PATIENT Routine 10/19/2023 11:00 AM EST from Last 3 Months or Most Recently Relevant to Health Maintenance Insurance [facility] MEDICAID STAND ADULT [facility]AL-[facility] MEDICAID STAND ADULT
--- NOTE | 2024-09-25 08:32 | A.OFFVIS_ITS ---
Intake Visit Reasons: TV Gastric Band Removal BMI 49. *CHLOROBUTADIENE SCRUBBER OPERATOR* Strategic Account Manager Required: Yes Strategic Account Manager Services: Strategic Account Manager Present Information Interpreted: clinical only Allergies pollard Allergy (Intermediate, Verified 09/25/24 08:32) Itching raspberry Allergy (Intermediate, Verified 09/25/24 08:32) Itching Medication List - Last Reconciled 09/25/24 by Vaughn Garcia MD acetaminophen (Tylenol Extra Strength) 1,000 mg (2 x 500 mg) PO QID PRN atorvastatin 20 mg PO BEDTIME 90 days ibuprofen 600 mg PO Q6H PRN levonorgestrel (Mirena) 1 device intrauterine CONT metformin 500 mg PO BID 90 days omeprazole 40 mg PO DAILY 90 days pyridoxine (vitamin B6) 100 mg PO DAILY sumatriptan succinate 25 mg PO Q2-4H PRN 30 days HPI HPI TV Gastric Band Removal BMI 49. *CHLOROBUTADIENE SCRUBBER OPERATOR*: Details: Start time: 8.27am, End time: 9.05am ?I spent 33 minutes speaking with the patient on the phone plus an additional 5 minutes reviewing and updating records for a total of 38 minutes HPI Comments Details: Complains of frequent vomiting with the band as well as GERD. Was referred to us by Dr. Tyler. The patient had an UGI in 01/2024 which I reviewed and is consistent of persistent narrowing at the band site with GERD. No slippage was seen [facility] Medical History (Updated 09/25/24 @ 08:42 by Vaughn Garcia MD) Migraines Hyperlipidemia Elevated LFTs Kidney stone on left side Nephrolithiasis Morbid obesity with BMI of 45.0-49.9, adult Urinary tract infection Blurry vision, left eye Cervical spine pain Internal and external hemorrhoids without complication Hemorrhoids Renal calculi BMI 45.0-49.9, adult Thiamine deficiency Dyslipidemia GERD (gastroesophageal reflux disease) Hematuria Thickened endometrium Abnormal uterine bleeding (AUB) Pure hypercholesterolemia Insomnia Kidney stone Ectopic Surgical History Hx of lithotripsy H/O laparoscopy Hx of section Hx of cholecystectomy Hx of laparoscopic gastric banding Family History Mother Osteoporosis Glaucoma Migraine Ovarian cancer Uterine cancer Sister Uterine cancer Maternal Grandfather Diabetes mellitus Paternal Grandmother Diabetes mellitus HTN (hypertension) Maternal Uncle Throat cancer Father HIV (human immunodeficiency virus infection) Sister Heart abnormality Sister Heart abnormality Epilepsy Brother No problems noted. Son No problems noted. 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al exposures/hazards: No Gender identity: Female Cognitive needs: No Hearing needs: No Vision needs: Yes (glasses) Female Reproductive History Menstrual Age of Menarche: 14 Telehealth Telehealth Telehealth Platform: Telephone Location of provider rendering services: practice address Location of patient: address on file Patient Identification confirmed using: Name, : Yes Telehealth method: voice only Patient verbally consented to treatment: Yes Patient verbally consented to billing insurance company: Yes Patient informed of any privacy concerns related to visit: Yes Minutes spent on Phone/Video with Pt.: 38 Assessment & Plan Assessment & Plan (1) Morbid obesity: Code(s): E66.01 - Morbid (severe) obesity due to excess calories Category: Medical Plan: 1.? Plan for lap gastric band removal. Complications are rare and in our practice is about 1/10 of the national average. However, you can develop bleeding that may require transfusion (hasn?t happened for year in the practice), you may from complications (we did not have any deaths in the practice) and infections. Infections are usually a result of breakdown in communication or not understanding or following directions correctly. They are difficult to treat, they can happen during the first 6 weeks, they may require to be in the hospital for weeks or even months, not being able to eat by mouth and you may have drains and surgeries to try and correct the issue. Other risks and complications include possible conversion to an open procedure, leaks, small bowel obstruction, blood clots, cardiac, or pulmonary complications. 2. To be scheduled for EGD to assess the stomach's anatomy and rule out band erosion. The possibility of biopsies was discussed. Patient needs to avoid use of NSAIDs and aspirin for 1 week prior to EGD. You must be on liquids only the day before your endoscopy. Risks of perforation and bleeding was discussed with the patient. This will be an outpatient procedure with IV sedation. 3.Stop food and bars as of tomorrow 09/26/24 and continue with 3 PREMIER protein shakes (4oz Premier shake mixed with 4oz almond milk) at 7am-9am, 10am-12pm and 1pm-3pm and two more whole bottle PREMIER protein shakes at 4pm-6pm and 7pm-9pm Orders: Orders IRON PROFILE Today E66.01 - Morbid (severe) obesity due to excess calories, Z68.42 - Body mass index [BMI] 45.0-49.9, adult Vitamin A Today E66.01 - Morbid (severe) obesity due to excess calories, Z68.42 - Body mass index [BMI] 45.0-49.9, adult Vitamin D 25-OH Total Today E66.01 - Morbid (severe) obesity due to excess calories, Z68.42 - Body mass index [BMI] 45.0-49.9, adult Insulin Today E66.01 - Morbid (severe) obesity due to excess calories, Z68.42 - Body mass index [BMI] 45.0-49.9, adult Hemoglobin A1c Today E66.01 - Morbid (severe) obesity due to excess calories, Z68.42 - Body mass index [BMI] 45.0-49.9, adult Complete Blood Count Auto Diff Today E66.01 - Morbid (severe) obesity due to excess calories, Z68.42 - Body mass index [BMI] 45.0-49.9, adult Lipid Panel Today E66.01 - Morbid (severe) obesity due to excess calories, Z68.42 - Body mass index [BMI] 45.0-49.9, adult Comprehensive Met. Panel Today E66.01 - Morbid (severe) obesity due to excess calories, Z68.42 - Body mass index [BMI] 45.0-49.9, adult Vitamin B12 and Folate Today E66.01 - Morbid (severe) obesity due to excess calories, Z68.42 - Body mass index [BMI] 45.0-49.9, adult Zinc Today E66.01 - Morbid (severe) obesity due to excess calories, Z68.42 - Body mass index [BMI] 45.0-49.9, adult C Reactive Protein Today E66.01 - Morbid (severe) obesity due to excess calories, Z68.42 - Body mass index [BMI] 45.0-49.9, adult Vitamin B1 Today E66.01 - Morbid (severe) obesity due to excess calories, Z68.42 - Body mass index [BMI] 45.0-49.9, adult TSH reflex Free T4 Today E66.01 - Morbid (severe) obesity due to excess calorie s, Z68.42 - Body mass index [BMI] 45.0-49.9, adult Ferritin Today E66.01 - Morbid (severe) obesity due to excess calories, Z68.42 - Body mass index [BMI] 45.0-49.9, adult
== END 2024-09-25 09:12 | disposition home or self-care (01) ==
LOC: HO.HBS 08:11
PROVIDERS: PCP Internal Medicine; Visit Provider Surgery
DX: E66.01 Morbid (severe) obesity due to excess calories (principal)
CPT/HCPCS: 99203

== ENCOUNTER 2024-10-04 07:59 | Outpatient (AMB) | payer OTHER, SELFPAY ==
--- OUTSIDE RECORDS SUMMARY | 2024-10-04 08:01 | XMS_ITS | Encounter Summary ---
Author Organization [employer] Address [address] [place] [address] Care Team Providers Care Sales Order Administrator Name Role Phone Unavailable Primary Care Provider Unavailabl e Encounter Details Date Type Department Care Team (Latest Contact Info) Description 09/26/2019 Abstract [facility] CONVERSIONS Dental, Provider, DDS Social History Tobacco [...] Description 02/12/2025 10:00 AM EDT Office Visit [facility] ADULT DENTAL [address] [place] [address] Jesus, Aynet [address] [place] [address] documented as of this encounter Visit Diagnoses Not on filedocumented in this encounter
--- OUTSIDE RECORDS SUMMARY | 2024-10-04 08:01 | XMS_ITS | Clinical Summary ---
Author Organization [facility] Address [address] [place] [address] Care Team Providers Care Computer Compositor Name Role Phone SergiodennisYasemin Reid DO Primary Care Pro vider Unavailable Allergies Active Allergy Reactions Severity Noted Date Comments Aspirin 02/04/2014 Facial swelling Medications Medication Sig Dispensed Refills Start Date End Date Status loratadine (CLARITIN) 10 MG tablet Take 1 Tab by mouth daily. 20 Tab 0 11/26/2015 Active cyclobenzaprine (FLEXERIL) 10 MG tablet Take 1 Tab by mouth 3 times daily as needed for Muscle spasms for up to 10 days. 30 Tab 0 05/18/2017 Active ibuprofen (ADVIL,MOTRIN) 800 MG tablet Take 1 Tab by mouth 3 times daily for 30 days. 90 Tab 0 05/18/2017 Active Active Problems Problem Noted Date Family history of uterine cancer 017 Family history of ovarian cancer 017 Obesity 10/03/2016 Vitamin D deficiency 05/25/2014 Dyslipidemia 05/25/2014 Personal history of gastric banding Morbid obesity History of nephrolithiasis Immunizations Name Administration Dates Next Due Influenza Flu (PT Reported) 06/24/2014 MMR (Enklekg-Ztyzw-Vokzkna) 04/01/2015 Tdap 03/18/2015 Family History Medical History Relation Name Comments hiv Father Hypertension Mother htn, glaucoma, osteoporosis; ovarian ca at age 38 Diabetes Paternal Grandmother ovarian cancer Sister uterine cance r, htn Other Uncle oral cancer-smo ker; maternal uncle Relation Name Status Comments Father Mother Alive Paternal Grandmother Sister Uncle Social History Tobacco Use Types Packs/Day Years Used Date Smoking Tobacco: Never Alcohol Use Standard Drinks/Week Comments No 0 (1 standard drink = 0.6 oz pur e alcohol) Sex Assigned at Date Recorded Not on file Last Filed Vital Signs Vital Sign Reading Time Taken Comments Blood Pressure 116/74 05/18/2017 9:13 AM EDT Pulse 72 05/18/2017 9:13 AM EDT Temperature 37 ??C (98.6 ??F) 05/18/2017 9:13 AM EDT Respiratory Rate 14 05/18/2017 9:13 AM EDT Oxygen Saturation 98% 11/01/2016 2:21 PM EST Inhaled Oxygen Concentration - - Weight 117 kg (258 lb) 05/18/2017 9:13 AM EDT Height 157.5 cm (5' 2 ) 05/18/2017 9:13 AM EDT Body Mass Index 47.19 05/18/2017 9:13 AM EDT Plan of Treatment Health Maintenance Due Date Last Done Comments Covid-19 Vaccine (#1) 06/07/1978 TOBACCO CHECK/ADVISE 12/07/1995 BASELINE HEALTH EXAM 40-64 12/06/201711/11, 11/11/2016, 11/09/2016, Additional history exists MAMMOGRAM 2017 11/06/2014 CERVICAL CANCER SCREENING 12/06/20182015 (External Completion of test per patient (Patient reports normal results)) CHOLESTEROL SCREENING 11/11/2021 11/11/2016 , 03/17/2015, 05/14/2014 INFLUENZA (#1) 2024 11/09/2016 (Refu sed), 06/24/2014 BMI CHECK/ADVISE 09/04/2024 11/09/2016, , 06/24/2014, Additional history exists DTAP/TDAP/TD (2 - Td or Tdap) 03/18/2025 03/18/2015 PNEUMOCOCCAL VACCINE FOR HIG H RISK PATIENTS (#1) 2042 Care Teams Computer Compositor Relationship Specialty Start Date End Date Yasemin Barron DO PCP - General Internal Medicine 12/13/13
--- OUTSIDE RECORDS SUMMARY | 2024-10-04 08:01 | XMS_ITS | Encounter Summary ---
Author Organization [facility] Address [address] [place] [address] Care Team Providers Care Strategy Intern Name Role Phone Yasemin Barron DO Primary Care Pro vider Unavailable Encounter Details Date Type Department Care Team Description 09/20/2016 Content Management Consultant Report Medical Records [address] [place] [id number] [place] [address] Social History Tobacco Use Types Packs/Day Years Used Date Smoking Tobacco: Never Alcohol Use Standard Drinks/Week Comments No 0 (1 standard drink = 0.6 oz pur e alcohol) Sex Assigned at Date Recorded Not on file documented as of this encounter Plan of Treatment Not on file documented as of this encounter Visit Diagnoses Not on filedocumented in this encounter Care Teams Strategy Intern Relationship Specialty Start Date End Date Yasemin Barron DO PCP - General Internal Medicine 12/13/13 documented as of this encounter
--- OUTSIDE RECORDS SUMMARY | 2024-10-04 08:01 | XMS_ITS | Clinical Summary ---
Author Organization [employer] Address [address] [place] [address] Care Team Providers Care Plumbing Designer Name Role Phone Unavailable Primary Care Provider [...] caries 03/08/2023 Dental plaque 02/14/2023 Fractured dental mosque with loss of materi al 02/14/2023 Family [...] Description 02/12/2025 10:00 AM EDT Office Visit [facility] ADULT DENTAL [address] [place] [address] Socrates Leearis [address] [place] [address] Health Maintenance Due Date Last Done Comments CT Colonography 1977 Colonoscopy 1977 Colorectal Cancer Screening 1977 Depression Screening 1977 FIT DNA/Cologuard 1977 FIT 1977 FOBT 1977 HIV Screening 1977 Lipid Panel 1977 SDOH Screening 1977 Sigmoidoscopy 1977 Alcohol/Substance Use Screening 1989 Family Planning (PISQ) 1992 Hepatitis C Screening 12/07/1995 Pap Smear 1998 [...] Screening 06/05/2025 06/05/2024 Dental X-Ray: Full Mouth 11/17/202611/16/ 024, 02/14/2023, 06/26/2019, Additional history exists Zoster [...] 5 Years) and At-Risk Patients (6 to 49) Years) Aged Out 09/09/2017 No longer eligible [...] Most Recently Relevant to Health Maintenance Insurance [facility] MEDICAID STAND ADULT [facility]AL[facility] MEDICAID STAND ADULT
--- OUTSIDE RECORDS SUMMARY | 2024-10-04 08:01 | XMS_ITS | Encounter Summary ---
Author Organization [facility] Address [address] [place] [address] Care Team Providers Care Inspection Clerk Name Role Phone Yasemin Barron DO Primary Care Pro vider Unavailable Reason for Visit * Reason Onset Date Comments Genetic Counseling 03/02/2017 Encounter Details Date Type Department Care Team Description 03/02/2017 Telephone Genetic & Disease Counseling - [address] [address] Asiya Isaac PA-C Genetic Counseling Social History Tobacco Use Types Packs/Day Years Used Date Smoking Tobacco: Never Alcohol Use Standard Drinks/Week Comments No 0 (1 standard drink = 0.6 oz pur e alcohol) Sex Assigned at Date Recorded Not on file documented as of this encounter Miscellaneous Notes * Telephone Encounter - Cat Alan - 03/02/2017 2:20 PM EDT LMOM for pt to call and rechedule appt due to a delay in the test results, when pt returns call please re-book f/u appt after 03/18/17 documented in this encounter Plan of Treatment Not on file documented as of this encounter Visit Diagnoses Not on filedocumented in this encounter Care Teams Inspection Clerk Relationship Specialty Start Date End Date Yasemin Barron DO PCP - General Internal Medicine 12/13/13 documented as of this encounter
--- OUTSIDE RECORDS SUMMARY | 2024-10-04 08:01 | XMS_ITS | Encounter Summary ---
Author Organization [facility] Address [address] [place] [address] Care Team Providers Care Knotting Machine Operator Name Role Phone Yasemin Barron DO Primary Care Pro vider Unavailable Encounter Details Date Type Department Care Team Description 02/28/2014 Telephone Derm[address]ology [address] [place] [id number] Keagan Rodriguez MD Social History Tobacco Use Types Packs/Day Years Used Date Smoking Tobacco: Never Alcohol Use Standard Drinks/Week Comments Not Asked 0 (1 standard drink = 0.6 oz pur e alcohol) Sex Assigned at Date Recorded Not on file documented as of this encounter Plan of Treatment Not on file documented as of this encounter Visit Diagnoses Not on filedocumented in this encounter Care Teams Knotting Machine Operator Relationship Specialty Start Date End Date Yasemin Barron DO PCP - General Internal Medicine 12/13/13 documented as of this encounter
--- OUTSIDE RECORDS SUMMARY | 2024-10-04 08:01 | XMS_ITS | Encounter Summary ---
Author Organization [facility] Address [address] [place] [address] Care Team Providers Care Bakery Demonstrator Name Role Phone Yasemin Barron DO Primary Care Pro vider Unavailable Encounter Details Date Type Department Care Team Description 03/14/2014 Hospital Medical Records [address] [place] [address] Marisa Hinds DO Social History Tobacco Use Types Packs/Day Years Used Date Smoking Tobacco: Never Alcohol Use Standard Drinks/Week Comments No 0 (1 standard drink = 0.6 oz pur e alcohol) Sex Assigned at Date Recorded Not on file documented as of this encounter Plan of Treatment Not on file documented as of this encounter Visit Diagnoses Not on filedocumented in this encounter Care Teams Bakery Demonstrator Relationship Specialty Start Date End Date Yasemin Barron DO PCP - General Internal Medicine 12/13/13 documented as of this encounter
--- OUTSIDE RECORDS SUMMARY | 2024-10-04 08:01 | XMS_ITS | Encounter Summary ---
Author Organization [facility] Address [address] [place] [address] Care Team Providers Care Plodding Operator Name Role Phone Yasemin Barron DO Primary Care Pro vider Unavailable Encounter Details Date Type Department Care Team Description 09/14/2016 Beer Merchant Report Medical Records [address] [place] [id number] Abstract, Provider Social History Tobacco Use Types Packs/Day Years Used Date Smoking Tobacco: Never Alcohol Use Standard Drinks/Week Comments No 0 (1 standard drink = 0.6 oz pur e alcohol) Sex Assigned at Date Recorded Not on file documented as of this encounter Plan of Treatment Not on file documented as of this encounter Visit Diagnoses Not on filedocumented in this encounter Care Teams Plodding Operator Relationship Specialty Start Date End Date Yasemin Barron DO PCP - General Internal Medicine 12/13/13 documented as of this encounter
--- OUTSIDE RECORDS SUMMARY | 2024-10-04 08:01 | XMS_ITS | Encounter Summary ---
Author Organization [employer] Address [address] [place] [address] Care Team Providers Care Director Stars Name Role Phone Unavailable Primary Care Provider Unavailabl e Encounter Details Date Type Department Care Team (Latest Contact Info) Description 07/05/2021 Abstract [facility] CONVERSIONS Dental, Provider, DDS Social History [...] Description 02/12/2025 10:00 AM EDT Office Visit [facility] ADULT DENTAL [address] [place] [address] Jesus, Yanet [address] [place] [address] documented as of this encounter Visit Diagnoses Not on filedocumented in this encounter
--- NOTE | 2024-10-04 10:43 | A.OFFVIS_ITS ---
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* Dynamite Packing Machine Operator Required: Yes Dynamite Packing Machine Operator Services: Dynamite Packing Machine Operator Present Information Interpreted: clinical only Allergies pollard Allergy (Intermediate, Verified 10/04/24 10:43) Itching raspberry Allergy (Intermediate, Verified 10/04/24 10:43) Itching Medication List - Last Reconciled 10/04/24 by Vaughn Garcia MD acetaminophen (Tylenol Extra Strength) 1,000 mg (2 x 500 mg) PO QID PRN atorvastatin 20 mg PO BEDTIME 90 days ibuprofen 600 mg PO Q6H PRN levonorgestrel (Mirena) 1 device intrauterine CONT metformin 500 mg PO BID 90 days omeprazole 40 mg PO DAILY 90 days ondansetron 4 mg PO Q12H pyridoxine (vitamin B6) 100 mg PO DAILY sumatriptan succinate 25 mg PO Q2-4H PRN 30 days HPI HPI TV Pre Op Lap Band Removal 10/08/24 *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*: Details: Start time: 10.50am, End time: 11.10am ?I spent 15 minutes speaking with the patient on the phone plus an additional 5 minutes reviewing and updating records for a total of 20 minutes HPI Comments Details: This is the preop appointment for lap band removal Recent EGD showed no band erosion Is doing 4 Premier protein shakes (4oz Premier mixed with 4 oz almond milk) and one whole bottle Premier protein shake PFSH Medical History Migraines Hyperlipidemia Elevated LFTs Kidney stone on left side Nephrolithiasis Morbid obesity with BMI of 45.0-49.9, adult Urinary tract infection Blurry vision, left eye Cervical spine pain Internal and external hemorrhoids without complication Hemorrhoids Renal calculi BMI 45.0-49.9, adult Thiamine deficiency Dyslipidemia GERD (gastroesophageal reflux disease) Hematuria Thickened endometrium Abnormal uterine bleeding (AUB) Pure hypercholesterolemia Insomnia Kidney stone Ectopic Surgical History Hx of lithotripsy H/O laparoscopy Hx of section Hx of cholecystectomy Hx of laparoscopic gastric banding Family History Mother Osteoporosis Glaucoma Migraine Ovarian cancer Uterine cancer Sister Uterine cancer Maternal Grandfather Diabetes mellitus Paternal Grandmother Diabetes mellitus HTN (hypertension) Maternal Uncle Throat cancer Father HIV (human immunodeficiency virus infection) Sister Heart abnormality Sister Heart abnormality Epilepsy Brother No problems noted. Son No problems noted. 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al exposures/hazards: No Gender identity: Female Cognitive needs: No Hearing needs: No Vision needs: Yes (glasses) Female Reproductive History Menstrual Age of Menarche: 14 Telehealth Telehealth Telehealth Platform: Telephone Location of provider rendering services: practice address Location of patient: address on file Patient Identification confirmed using: Name, : Yes Telehealth method: voice only Patient verbally consented to treatment: Yes Patient verbally consented to billing insurance company: Yes Patient informed of any privacy concerns related to visit: Yes Minutes spent on Phone/Video with Pt.: 20 Assessment & Plan Assessment & Plan (1) Gastric band malfunction: Code(s): K95.09 - Other complications of gastric band procedure Category: Medical Plan: 1. Plan for lap band removal and its accessories including upper GI endoscopy. Risks and complications were discussed in detail including possible conversion to an open procedure, leak, bleeding requiring transfusion, small bowel obstruction, , DVT and pulmonary embolism, cardiac, or pulmonary complications. 2. Preop prescriptions were provided and explained the purpose of each one. Need to be purchased preop. Start Omeprazole now 1 pill per day. Zofran is for after surgery as needed. 3. Needs to purchase Tylenol for postop pain control. 6. She needs to stop the Ibuprofen. Avoid aspirin, motrin, Advil, Aleve, Meloxicam, Excedrin, Ibuprofen, Naproxyn. Tylenol is OK. 7. Will do basic preop blood work-up today fasting for 12 hours and is scheduled to see the Anesthesiologist prior to the day of surgery. 8. Continue to avoid food and bars and continue with 4 ?Premier protein shakes (4oz Premier mixed with 4oz almond milk) at 7am-9am, 10am-12pm, 1pm-3pm, 4pm-6pm and one more whole bottle Premier protein shake at 7pm-9pm 9. No soups, broths or V8 10. The patient's?medical?history has been reviewed and they are considered low risk for post op DVT and therefore DVT prophylaxis is not considered necessary. Travel after surgery was reviewed. The patient has not disclosed any travel plans during the first 30 days after surgery and they have been advised that within the first 30 days after surgery any bus, plane, train or car travel over 2 hours in duration is contraindicated due to the possibility of developing blood clots from immobility. Any travel, needs to include periods of ambulation of 10 minutes in duration every 2 hours.? Patient was instructed to discuss any plans for travel during this period with their bariatric surgeon.? 11. Please take at the day of surgery the following medications: None 12. Stop any control pills and don't use them for one month after surgery 13. Absolutely no smoking or vaping, or marijuana until the surgery and for at l east the first 4 weeks. Only nicotine patches are allowed. Orders: Orders Comprehensive Met. Panel Today Z01.818 - Encounter for other preprocedural examination Partial Thromboplastin Time Today Z01.818 - Encounter for other preprocedural examination Type and Screen Today Z01.818 - Encounter for other preprocedural examination Prothrombin Time INR Today Z01.818 - Encounter for other preprocedural examin ation TSH reflex Free T4 Today Z01.818 - Encounter for other preprocedural examination Hemoglobin A1c Today Z01.818 - Encounter for other preprocedural examination C Reactive Protein Today Z01.818 - Encounter for other preprocedural examination Complete Blood Count Auto Diff Today Z01.818 - Encounter for other preprocedural examination Medications: New ondansetron Only take one every 12 hours as needed if you have nausea 4 mg PO Q12H 20 tabs 0RF nausea and vomiting R11.0 - Nausea
== END 2024-10-04 11:35 | disposition home or self-care (01) ==
LOC: HO.HBS 07:59
PROVIDERS: PCP Internal Medicine; Visit Provider Surgery
DX: K95.09 Other complications of gastric band procedure (principal)
CPT/HCPCS: 99499

== ENCOUNTER 2024-10-04 07:59 | Outpatient (REF) | payer OTHER, SELFPAY ==
--- OUTSIDE RECORDS SUMMARY | 2024-10-04 12:09 | XMS_ITS | Encounter Summary ---
Author Organization [employer] Address [address] [place] [address] Care Team Providers Care French Pastry Cook Name Role Phone Unavailable Primary Care Provider Unavailabl e Encounter Details Date Type Department Care Team (Latest Contact Info) Description 09/26/2019 Abstract [facility] CONVERSIONS Dental, Provider, DDS Social History [...] Description 02/12/2025 10:00 AM EDT Office Visit [facility] ADULT DENTAL [address] [place] [address] Jesus, Yanet [address] [place] [address] documented as of this encounter Visit Diagnoses Not on filedocumented in this encounter
--- OUTSIDE RECORDS SUMMARY | 2024-10-04 12:09 | XMS_ITS | Clinical Summary ---
Author Organization [facility] Address [address] [place] [address] Care Team Providers Care Probation Counselor Name Role Phone SergiodennisYasemin Reid DO Primary [...] Due Influenza Flu (PT Reported) 06/24/2014 MMR (Grypcrs-Tsipr-[id number]) 04/01/2015 Tdap 03/18/2015 Family History Medical History [...] H RISK PATIENTS (#1) 2042 Care Teams Probation Counselor Relationship Specialty Start Date End Date Yasemin Barron DO PCP - General Internal Medicine 12/13/13
--- OUTSIDE RECORDS SUMMARY | 2024-10-04 12:09 | XMS_ITS | Clinical Summary ---
Author Organization [employer] Address [address] [place] [address] Care Team Providers Care Supervisor Advertising Dispatch Clerks Name Role Phone Unavailable Primary Care Provider [...] caries 03/08/2023 Dental plaque 02/14/2023 Fractured dental episcopal with loss of materi al 02/14/2023 Family [...] Description 02/12/2025 10:00 AM EDT Office Visit [facility] ADULT DENTAL [address] [place] [address] Socrates Leearis [address] [place] [address] Health Maintenance Due Date Last Done Comments [...] Most Recently Relevant to Health Maintenance Insurance DENTAL-[facility] MEDICAID STAND ADULT DENTAL-[facility] MEDICAID STAND ADULT
--- OUTSIDE RECORDS SUMMARY | 2024-10-04 12:09 | XMS_ITS | Encounter Summary ---
Author Organization [facility] Address [address] [place] [address] Care Team Providers Care Desk Pen Set Assembler Name Role Phone Yasemin Barron DO Primary Care Pro vider Unavailable Encounter Details Date Type Department Care Team Description 09/26/2016 Pickling Solution Maker Report Medical Records [address] [place] [id number] Eh Castro MD Social History Tobacco Use Types Packs/Day Years Used Date Smoking Tobacco: Never Alcohol Use Standard Drinks/Week Comments No 0 (1 standard drink = 0.6 oz pur e alcohol) Sex Assigned at Date Recorded Not on file documented as of this encounter Plan of Treatment Not on file documented as of this encounter Visit Diagnoses Not on filedocumented in this encounter Care Teams Desk Pen Set Assembler Relationship Specialty Start Date End Date Yasemin Barron DO PCP - General Internal Medicine 12/13/13 documented as of this encounter
--- OUTSIDE RECORDS SUMMARY | 2024-10-04 12:09 | XMS_ITS | Encounter Summary ---
Author Organization [facility] Address [address] [place] [address] Care Team Providers Care Cement Gun Operator Name Role Phone Yasemin Barron DO Primary Care Pro vider Unavailable Encounter Details Date Type Department Care Team Description 09/14/2016 Bonding And Composite Fabricator Report Medical Records [address] [place] [id number] Abstract, Provider Social History Tobacco Use Types [...] on filedocumented in this encounter Care Teams Cement Gun Operator Relationship Specialty Start Date End Date Yasemin Barron DO PCP - General Internal Medicine 12/13/13 documented as of this encounter
--- OUTSIDE RECORDS SUMMARY | 2024-10-04 12:09 | XMS_ITS | Encounter Summary ---
Author Organization [facility] Address [address] [place] [address] Care Team Providers Care Field Supervisor Seed Production Name Role Phone Yasemin Barron DO Primary Care Pro vider Unavailable Reason for Visit * Reason Onset Date Comments other 03/21/2014 treatment for bl ack heads Encounter Details Date Type Department Care Team Description 03/21/2014 Telephone [address] [place] [address] Keagan Rodriguez MD other (treatment for black heads) Social History Tobacco Use Types Packs/Day Years Used Date Smoking Tobacco: Never Alcohol Use Standard Drinks/Week Comments Not Asked 0 (1 standard drink = 0.6 oz pur e alcohol) Sex Assigned at Date Recorded Not on file documented as of this encounter Miscellaneous Notes * Telephone Encounter - Skyler Luong C.M.A. - 03/24/2014 10:08 AM EDT Contacted pt to tall her that her insurance is already covered for the insurance. Pt doenst speak samoan. She had nobody to translate for her. I will call back later * Telephone Encounter - Merlyn Presley - 03/21/2014 2:13 PM EDT Pt states she spoke with her insurance [facility] and they told her that DR Rodriguez's office needs to call [facility] directly to find out if her treatment for black heads is covered. documented in this encounter Plan of Treatment Not on file documented as of this encounter Visit Diagnoses Not on filedocumented in this encounter Care Teams Field Supervisor Seed Production Relationship Specialty Start Date End Date Yasemin Barron DO PCP - General Internal Medicine 12/13/13 documented as of this encounter
--- OUTSIDE RECORDS SUMMARY | 2024-10-04 12:09 | XMS_ITS | Encounter Summary ---
Author Organization [facility] Address [address] [place] [address] Care Team Providers Care Mechanical Developer Prover Name Role Phone Yasemin Barron DO Primary Care Pro vider Unavailable Encounter Details Date Type Department Care Team Description 09/20/2016 Sorter Packer Report Medical Records [address] [place] [id number] [place] [address] Social History Tobacco Use Types Packs/Day Years Used Date Smoking Tobacco: Never Alcohol Use Standard Drinks/Week Comments No 0 (1 standard drink = 0.6 oz pur e alcohol) Sex Assigned at Date Recorded Not on file documented as of this encounter Plan of Treatment Not on file documented as of this encounter Visit Diagnoses Not on filedocumented in this encounter Care Teams Mechanical Developer Prover Relationship Specialty Start Date End Date Yasemin Barron DO PCP - General Internal Medicine 12/13/13 documented as of this encounter
--- OUTSIDE RECORDS SUMMARY | 2024-10-04 12:09 | XMS_ITS | Encounter Summary ---
Author Organization [facility] Address [address] [place] [address] Care Team Providers Care Laborer Chicken Farm Name Role Phone Yasemin Barron DO Primary Care Pro vider Unavailable Encounter Details Date Type Department Care Team Description 02/28/2014 Telephone [address] [place] [address] Keagan Rodriguez MD Social History Tobacco Use [...] on filedocumented in this encounter Care Teams Laborer Chicken Farm Relationship Specialty Start Date End Date Yasemin Barron DO PCP - General Internal Medicine 12/13/13 documented as of this encounter
--- OUTSIDE RECORDS SUMMARY | 2024-10-04 12:09 | XMS_ITS | Encounter Summary ---
Author Organization [facility] Address [address] [place] [address] Care Team Providers Care Machine Pecan Picker Name Role Phone Yasemin Barron DO Primary Care Pro vider Unavailable Reason for Visit * Reason Onset Date Comments REFERRAL 04/15/2015 Encounter Details Date Type Department Care Team Description 04/15/2015 Telephone Genetic & Disease Counseling - [address] [address] Asiya Isaac PA-C REFERRAL Social History Tobacco Use Types Packs/Day Years Used Date Smoking Tobacco: Never Alcohol Use Standard Drinks/Week Comments No 0 (1 standard drink = 0.6 oz pur e alcohol) Sex Assigned at Date Recorded Not on file documented as of this encounter Miscellaneous Notes * Telephone Encounter - Henrietta Johnson - 04/15/2015 10:52 AM EDT FYI ONLY. Called pt 03/27/15, 04/03/15, and sent letter 04/08/15 with no response. I am removing this pt's order from the genetic testing schedule. Order expires 03/16/16,[facility]. documented in this encounter Plan of Treatment Not on file documented as of this encounter Visit Diagnoses Not on filedocumented in this encounter Care Teams Machine Pecan Picker Relationship Specialty Start Date End Date Yasemin Barron DO PCP - General Internal Medicine 12/13/13 documented as of this encounter
--- OUTSIDE RECORDS SUMMARY | 2024-10-04 12:09 | XMS_ITS | Encounter Summary ---
Author Organization [facility] Address [address] [place] [address] Care Team Providers Care Dehydration Plant Operator Name Role Phone Yasemin Barron DO Primary Care Pro vider Unavailable Encounter Details Date Type Department Care Team Description 05/25/2014 Orders Only Adult Medicine [address] [address] Yasemin Barron DO Dyslipidemia; Vitamin D deficiency Social History Tobacco Use Types Packs/Day Years Used Date Smoking Tobacco: Never Alcohol Use Standard Drinks/Week Comments Not Asked 0 (1 standard drink = 0.6 oz pur e alcohol) Sex Assigned at Date Recorded Not on file documented as of this encounter Plan of Treatment Not on file documented as of this encounter Visit Diagnoses Diagnosis Dyslipidemia Other and unspecified hyperlipidemia Vitamin D deficiency Unspecified vitamin D deficiency documented in this encounter Care Teams Dehydration Plant Operator Relationship Specialty Start Date End Date Yasemin Barron DO PCP - General Internal Medicine 12/13/13 documented as of this encounter
--- OUTSIDE RECORDS SUMMARY | 2024-10-04 12:09 | XMS_ITS | Encounter Summary ---
Author Organization [facility] Address [address] [place] [address] Care Team Providers Care Landscape Maintenance Internship Name Role Phone Yasemin Barron DO Primary Care Pro vider Unavailable Encounter Details Date Type Department Care Team Description 02/25/2014 [address]phone [address] [place] [address] Keagan Rodriguez MD Social History Tobacco Use [...] on filedocumented in this encounter Care Teams Landscape Maintenance Internship Relationship Specialty Start Date End Date Yasemin Barron DO PCP - General Internal Medicine 12/13/13 documented as of this encounter
--- OUTSIDE RECORDS SUMMARY | 2024-10-04 12:09 | XMS_ITS | Encounter Summary ---
Author Organization [employer] Address [address] [place] [address] Care Team Providers Care Asbestos Removal Supervisor Name Role Phone Unavailable Primary Care Provider Unavailabl e Encounter Details Date Type Department Care Team (Latest Contact Info) Description 07/05/2021 Abstract [facility] CONVERSIONS Dental, Provider, DDS Social History Tobacco [...] Description 02/12/2025 10:00 AM EDT Office Visit [facility] ADULT DENTAL [address] [place] [address] Jesus, Yanet [address] [place] [address] documented as of this encounter Visit Diagnoses Not on filedocumented in this encounter
[2024-10-04 12:55] LABS: Basophils Absolute Auto 0.1 X10*3/uL (0.0-0.2); Basophils Percent Auto 0.4 % (0-2); Eosinophils Absolute Auto 0.1 X10*3/uL (0.0-0.4); Eosinophils Percent Auto 0.4 % (0-4); Hematocrit 48.1 % (37.0-47.0); Hemoglobin 16.3 g/dl (12.0-16.0); Imm Gran Abs Auto 0.09 X10*3/uL (0.00-0.03); Imm Gran Pct Auto 0.6 % (0.0-0.4); Lymphocytes Absolute Auto 3.7 X10*3/uL (1.2-4.9); Mean Corpuscular HGB Conc 33.9 g/dl (31.0-35.0); Mean Corpuscular Hemoglobin 29.5 pg (27.0-33.0); Monocytes Absolute Auto 0.9 X10*3/uL (0.1-1.2); Monocytes Percent Auto 5.3 % (2-11); Neutrophils Absolute Auto 11.4 x10*3/uL (2.0-8.3); Neutrophils Percent Auto 70.3 % (45-73); Platelet Count 165 X10*3/uL (160-400); Red Blood Count 5.53 X10*6/uL (4.20-5.50); Red Cell Distribution Width 12.5 % (11.0-16.0); White Blood Count 16.1 X10*3/uL (4.8-10.8)
[2024-10-04 12:56] LABS: Estimated Average Glucose 123 mg/dL; Hemoglobin A1C 170.9305 umol/L; Hemoglobin A1c % 5.9 % (<6.0); Total Hemoglobin (HGBA1C) 4199.7074 umol/L
[2024-10-04 12:57] LABS: INTERNATIONAL NORM RATIO 1.2 (0.9-1.1); Prothrombin Time 14.2 SEC (10.9-12.4)
[2024-10-04 12:59] LABS: Partial Thromboplastin Time 35.2 SEC (26.0-36.8)
[2024-10-04 13:33] LABS: Alanine Aminotransferase 79 U/L (0-31); Albumin Level 4.2 g/dL (3.5-5.0); Alkaline Phosphatase 107 U/L (39-117); Anion Gap 15 (12-20); Aspartate Amino Transferase 39 U/L (5-31); Bilirubin Direct 0.2 mg/dL (0.0-0.5); Blood Urea Nitrogen 16 mg/dL (9-16); C Reactive Protein 0.28 mg/dL (< or = 0.50); Calcium 10.1 mg/dL (8.4-10.2); Carbon Dioxide 23 mmol/L (22-29); Chloride 105 mmol/L (96-108); Cholesterol 220 mg/dL (<200); Estimated Glomerular Filt Rate 58; Glucose Random 93 mg/dL (60-115); HDL Cholesterol 28 mg/dL (>40); Iron 53 mcg/dL (30-160); LDL Cholesterol Calculated 168 mg/dL (<100); Percent Iron Saturation 18 % (15-50); Potassium 3.4 mmol/L (3.3-5.1); Sodium 140 mmol/L (135-145); Total Iron Binding Capacity 301 mcg/dL (228-428); Total Protein 8.3 g/dL (6.5-8.0); Triglycerides 122 mg/dL (<150); Unsaturated Iron Binding 248 ug/dL
[2024-10-04 13:57] LABS: Ferritin 158 ng/mL (10-250); Insulin 61 uU/mL (2-29); TSH reflex Free T4 1.06 uIU/mL (0.32-4.0); Vitamin D 25-OH Total 25.1 ng/mL (>30)
[2024-10-04 13:59] LABS: Folate 8.7 ng/mL (> or = 4.0); Vitamin B12 788 pg/mL (200-900)
[2024-10-04 14:18] LABS: Bilirubin Total 0.8 mg/dL (0.0-1.0)
[2024-10-05 04:32] LABS: Hepatitis A Antibody IgG REACTIVE (Nonreactive); ~Hepatitis A Antibody IgG 8.67 S/CO (0.00-0.99)
[2024-10-05 04:41] LABS: HBS Num1 > 1000.00 mIU/mL (0-7.99); HBc Num1 0.14 S/CO (0.00-0.79); HBsAGNum1 0.57 S/CO (0.00-0.99); HIV AB/AG Nonreactive (Nonreactive); HIV Num 1 0.07 S/CO (0.00-0.99); Hepatitis B Core Antibody Nonreactive (Nonreactive); Hepatitis B Surface Antigen Negative (Negative); ~Hepatitis B Surface Antibody REACTIVE (Nonreactive); ~Hepatitis C Antibody Nonreactive (Nonreactive)
[2024-10-07 06:48] LABS: Alpha 1 Anti-trypsin 134 mg/dL (83-199); Ceruloplasmin 27 mg/dL (14-48)
[2024-10-07 09:43] LABS: Immunoglobulin A 565 mg/dL (47-310); Immunoglobulin G 1521 mg/dL (600-1640)
[2024-10-07 16:33] LABS: Transglutaminase IgA <1.0 U/mL
[2024-10-08 01:18] LABS: Zinc 71 mcg/dL (60-130)
[2024-10-08 10:08] LABS: Mitochondrial Antibodies NEGATIVE (NEGATIVE)
[2024-10-08 12:39] LABS: Liver Kidney Microsomal Ab <=20.0 U (<=20.0)
[2024-10-09 01:08] LABS: Vitamin A 50 mcg/dL (38-98)
[2024-10-09 10:04] LABS: Smooth Muscle Antibody <20 U (<20)
[2024-10-10 14:09] LABS: Anti Nuclear Antibody Screen NEGATIVE (NEGATIVE)
[2024-10-12 17:53] LABS: Vitamin B1 <6 nmol/L (8-30)
[2024-10-15 14:35] LABS: Alk.Phos Isoenzymes Intest 0%
[2024-10-15 14:37] LABS: Alk.Phos Isoenzymes Total 101 U/L
[2024-10-15 14:38] LABS: Alk.Phos Iso. Macrohepatic 0%; Alk.Phos Isoenzymes Placental 0%; Phosphatidylethanol 16:0-18:1 NEGATIVE
[2024-10-15 14:39] LABS: Phosphatidylethanol 16:0-18:2 NEGATIVE
== END 2024-10-04 08:00 | disposition home or self-care (01) ==
LOC: HO.LAB 07:59
PROVIDERS: Internal Medicine; PCP Internal Medicine; Visit Provider Surgery
DX: Z01.818 Encounter for other preprocedural examination (principal); R79.89 Other specified abnormal findings of blood chemistry; Z68.42 Body mass index [BMI] 45.0-49.9, adult; E66.01 Morbid (severe) obesity due to excess calories
CPT/HCPCS: 36415; 80053; 80061; 80321; 82103; 82248; 82306; 82390; 82607; 82728; 82746; 82784; 83036; 83525; 83540; 84080; 84425; 84443; 84590; 84630; 85025; 85610; 85730; 86015; 86038; 86140; 86364; 86376; 86381; 86704; 86706; 86708; 86803; 87340; 87389

== ENCOUNTER → 2024-10-07 10:47 | Outpatient (BNVA) | payer OTHER, SELFPAY | PROVIDERS: PCP Internal Medicine; Visit Provider Surgery ==

== ENCOUNTER 2024-10-08 06:54 | Day surgery (SDC) | payer OTHER, SELFPAY ==
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
[2024-10-08] VITALS (14 sets, daily range): BP systolic 109–139; BP diastolic 63–93; PULSE 82–106; RESP 9–18; TEMP 36.8–37.3; O2SAT 93–100; BMI 47.8
--- OUTSIDE RECORDS SUMMARY | 2024-10-08 06:56 | XMS_ITS | Encounter Summary ---
Author Organization [employer] Address [address] [place] [address] Care Team Providers Care Sound Engineer Name Role Phone Unavailable Primary Care Provider Unavailabl e Encounter Details Date Type Department Care Team (Latest Contact Info) Description 09/26/2019 Abstract [facility] CONVERSIONS Dental, Provider, DDS Social [...] Description 02/12/2025 10:00 AM EDT Office Visit [facility] ADULT DENTAL [address] [place] [address] Jesus, Yanet [address] [place] [address] documented as of this encounter Visit Diagnoses Not on filedocumented in this encounter
--- OUTSIDE RECORDS SUMMARY | 2024-10-08 06:56 | XMS_ITS | Clinical Summary ---
Author Organization [employer] Address [address] [place] [address] Care Team Providers Care Research Assoc Name Role Phone Unavailable Primary Care Provider [...] caries 03/08/2023 Dental plaque 02/14/2023 Fractured [facility] with loss of materi al 02/14/2023 Family [...] Description 02/12/2025 10:00 AM EDT Office Visit [facility] ADULT DENTAL [address] [place] [address] Socrates Leearis [address] [place] [address] Health Maintenance Due Date Last Done Comments [...] Most Recently Relevant to Health Maintenance Insurance DENTAL-[facility] MEDICAID STAND ADULT DENTAL-[facility] MEDICAID STAND ADULT
--- OUTSIDE RECORDS SUMMARY | 2024-10-08 06:56 | XMS_ITS | Encounter Summary ---
Author Organization [employer] Address [address] [place] [address] Care Team Providers Care Hunter Guide Name Role Phone Unavailable Primary Care Provider Unavailabl e Encounter Details Date Type Department Care Team (Latest Contact Info) Description 07/05/2021 Abstract [facility] CONVERSIONS Dental, Provider, DDS [...] Description 02/12/2025 10:00 AM EDT Office Visit [facility] ADULT DENTAL [address] [place] [address] Jesus, Yanet [address] [place] [address] documented as of this encounter Visit Diagnoses Not on filedocumented in this encounter
[2024-10-08 08:08] LABS: UPreg QC Valid YES; Urine Pregnancy NEGATIVE (NEGATIVE)
[2024-10-08 08:24] LABS: Glucose, Whole Blood 102 mg/dL (60-115)
[2024-10-08] MEDS: Aprepitant 32 MG/4.4 ML VIAL IVPUSH (08:31)
[2024-10-08] MEDS: Lactated Ringers 1,000 ML 100 ML IVCONT (08:33)
--- NOTE | 2024-10-08 10:13 | MHC.SHP ---
Pre-Procedural Eval Section A - 24 Hr Update-Section A only Date of Service: 10/08/24 The patient is an INPATIENT: No The patient has been examined within 24 hours of the surgical procedure. The History & Physical has been completed within 30 days and I have reviewed it.: Yes Section B - Complete if H&P > 30 days Chief Complaint: Other complications of gastric band procedure Relevant Family History (Specify if Yes): No Relevant Social History: None Present Medications: None Medical History: No relevant PMH History of Previous Operations: Relevant previous surgery/procedure and date(s) (Lap band procedure ) Allergies: Allergies Allergy/AdvReac Type Severity Reaction Status Date / Time pollard Allergy Intermediate Itching Verified 10/08/24 07:54 raspberry Allergy Intermediate Itching Verified 10/08/24 07:54 Review of Systems Sugical H&P ROS: Negative: Constitution, Cardiovascular, Respiratory, Neurological, Psychiatric, Hem-Onc, Allergic/Immunologic, Gastrointestinal, Genitourinary, Musculoskeletal, Integumentary, Endocrine and Eyes/Ears/Nose/Throat Exam Surgical H&P Exam: Normal: HEENT, Normal: Heart, Normal: Lungs, Normal: Extremities, Normal: Skin and Normal: Neurological and Not Evaluated: Abdomen (RUQ port) Plan Diagnosis/Plan: Unchanged I have reviewed the history and physical and performed a pertinent physical examination on my patient. No changes have occurred unless specified. Time Spent With Patient Time: Total time managing care of this patient today ____ minutes.
--- NOTE | 2024-10-08 10:14 | P.BOP_ITS ---
Brief Operative Note Date of Service: 10/08/24 Pre-op diagnosis: Lap bandmalfunction Post-op diagnosis: same Procedure: PROCEDURE: Esophago-gastroscopy, laparoscopic lysis of adhesions, laparoscopic band removal and accessories INDICATIONS: This is a 48 year-old female with a BMI of 49.8 kg/m2 and associated comorbid conditions as described previously. The patient has been experiencing frequent episodes of vomiting and food intolerance. As a result, the patient was electively scheduled for laparoscopic, possibly open gastric band removal. The risks and complications of the procedure were discussed with the patient in advance, particularly the possibility of ; pulmonary embolism; infection, gastric leak, bleeding; GERD; cardiac, pulmonary, or renal complications. The patient understood all the risks, and was in agreement to pr oceed with surgery. DESCRIPTION OF PROCEDURE: After informed consent was obtained from the patient, the patient was given preoperative antibiotics, and was transferred to the operating room. After clay ccessful induction of general anesthesia, pneumatic compressive devices were placed on both lower extremities. An upper endoscopy was performed next. The oropharynx and esophagus appeared to be within normal limits. There was no diaphragmatic hernia present. The stomach was entered. Then after all fluid and air were suctioned and the stomach was fully decompressed, the scope was withdrawn and secured in the mid esophagus. The patient was then prepped and draped in the usual sterile manner, and abdominal access was established at the right upper quadrant with the Esdras technique. A 12 mm blunt port was inserted, and the abdomen was insufflated with CO2 to a pressure of 15 mmHg. Under direct visualization, additional ports were placed, specifically two 5 mm Versi-step ports to the left upper quadrant, and a 5 mm Versi-Step port to the right upper quadrant. 1% lidocained plan was used to infiltrate all port sites as well as all fascia defects. Following that, the patient was placed in a steep reverse Trendelenburg position. An additional 5 mm port was placed to the right flank for the Mediflex retractor that was used to retract the left lobe of the liver. There were adhesions in the abdomen from previous lap band involving the stomach and the undersurface of the left lobe of the liver. Those were lysed completely with the ultrasonic device. The patient has a lap gastric REALIZE band. It was identified and using the Thunderbeat, the capsule was opened and the band was freed from surrounding tissues. Once it was adequately mobile, it was cut and was removed from the Esdras port along with the intra-abdominal portion of the tubing system. ?An upper endoscopy was performed. There was no narrowing at the GE junction. The scope was easily advanced all the way to the pylorus which was clearly visualized. There was no narrowing anywhere. There was no evidence of ischemia, bleeding or dehiscence. At that point the gastroscope was withdrawn from the patient?s mouth while we were decompressing the bowel and the stomach from any remaining air. There was no bleeding from the liver, spleen, or short gastric vessels. The Mediflex retractor was removed, and the undersurface of the liver was inspected and there was no bleeding. The patient was placed in supine position. The band's port was removed from the same incision I made for the Esdras port. Using cautery the subcutaneous tissues were divided until the port was identified. This particular port is not secured with sutures but with hooks. The remaining tubing system was delivered first and then slowly the four hooks were detached from the fascia and the port with tubing system were retrieved intact. I closed the fascial defect of the 12 mm port site with a figure of eight #1 Polysorb suture. Then 30cc Ropivacaine plain with 10 mg of Dexamethasone were used to infiltrate the fascial closure as well as all skin incisions. At this point, the abdomen was deflated, all ports were removed under direct vision, and no bleeding was noted from any of the port sites. The skin incisions were irrigated with saline and were closed with 4-0 absorbable monofilament sutures. Steri-Strips and OpSites were used to cover all incisions. The patient was extubated and was transferred in stable condition to the recovery room for further care. I was present and performed all gutiérrez parts of the procedure. Mr. Bhakta was the registered nurse first assistant. There were no residents to assist with this case. Gm Garcia MD, PhD, FACS Surgeon: Vaughn Garcia MD Anesthesia: GETA, local and other (TAP block) Was an Medical Dermatologist used for this Procedure?: No Medical Dermatologist: Giuliano Bhakta Estimated blood loss (mL): 10 IV fluids (mL): 1,500 Urine output (mL): 0 Pathology: other (Lap band, tubing and port) Condition: stable Disposition: PACU
[2024-10-08] MEDS: ceFAZolin Sodium/Dextrose,Iso 2 GM/50 ML PIGGYBACK IV (11:10)
--- NOTE | 2024-10-08 13:01 | P.DS_ITS ---
DS: Providers Provider Primary care physician: Milly Prince MD DS: Summary Hospital Course Hospital Course: ADMITTING DIAGNOSIS: morbid obesity, hld, dm, ckd ? DISCHARGE DIAGNOSIS: same, s/p laparoscopic gastric band removal ? PAST SURGICAL HISTORY: ? PROCEDURE: upper endoscopy, laparoscopic gastric band removal ? DISCHARGE SUMMARY: ? History of Present Illness: ? The patient is a?48 year-old woman with a BMI of?48 kg/m2 and associated co- morbidities as described above. The patient had extensive work-up, and was electively scheduled for laparoscopic, possible open removal of gastric band. Risks and complications of the surgery were discussed with the patient in advance, particularly the possibility of , pulmonary embolism, anastomotic leak, bleeding, bowel injury, GERD, cardiac, renal or pulmonary complications. The patient understood all the risks and was in agreement with the surgical plan. ? Hospital Course: ? The patient underwent an uneventful laparoscopic removal of gastric band on the day of admission. Postoperatively, the patient was transferred to the surgical floor. The patient received IV Acetaminophen and IV dilaudid for pain control. Patient was started on bariatric phase 1 diet POD #0. On postoperative day one, the patient was feeling well without nausea, vomiting, fevers, or tachycardia. The patient had some mild incisional pain and the abdomen was soft. ? On the morning of postoperative day one, the patient was continued on 1 ounce of water or ice every half hour. During the day, the patient did fairly well, having some incisional pain, but able to ambulate adequately and to tolerate liquids well. ? Since the patient is doing well, we decided that the patient was ready to be discharged. The patient was given instructions to follow-up with me next week and to call my office for any fever over 101, persistent abdominal pain, nausea, vomiting, GERD, symptoms of DVT such as calf tenderness, or leg swelling, or pulmonary embolism such as chest pain or shortness of breath. The patient was also instructed to drink 40-60 ounces of liquids per day using the 1-ounce cups. The patient had been given prescriptions for Tylenol for pain, Zofran prn for nausea, and pantoprazole and carafate previously. The patient was encouraged to ambulate and use the incentive spirometer. The patient was allowed to shower, but no baths, and encouraged to stay active at home. All of these instructions were given to the patient personally. All questions were answered and the patient understood all instructions, the instructions were also given to the patient in print. Time Attestation Total time managing care of this patient today: 25 mintues. Discharge Coordination Time (in mins): 25 Quality: Safe Use of Opioids Does Pt have an Active Cancer Diagnosis on the Problem List?: No Quality: Stroke Does the patient have a stroke diagnosis?: No Physical Exam Vital Signs: Vital Signs: Last Vital Signs Temp 99.1 F 10/08/24 12:55 Pulse 106 H 10/08/24 12:55 Resp 18 10/08/24 12:55 BP 109/63 10/08/24 12:55 Pulse Ox 100 10/08/24 12:55 O2 Del Method Simple Mask 10/08/24 12:55 O2 Flow Rate 6 10/08/24 12:55 BMI result Body Mass Index 47.8 DS: Data Data Completed and Pending Completed studies during hospitalization [Text1]: Procedures Dilation of Left Ureter with Intraluminal Device, Via Natural or Artificial Opening Endoscopic (08/12/23) Fluoroscopy of Left Kidney, Ureter and Bladder (08/12/23) Removal of Intraluminal Device from Ureter, Via Natural or Artificial Opening Endoscopic (08/30/23) Pending studies at discharge: Pending at discharge 10/08/24 12:18 Surgical [PTH] Routine Labs on day of discharge: Laboratory Results - last 24 hr 10/08/24 10/08/24 08:00 08:20 POC Glucose 102 Urine Test NEGATIVE Discharge Plan Discharge Patient Disposition: Home, Self-Care Referrals: Milly Chambers MD [Primary Care Provider] - 1 Week Discharge Medications: No Action atorvastatin 20 mg tablet 20 mg PO BEDTIME 90 Days Qty: 90 1RF metformin 500 mg tablet 500 mg PO BID 90 Days Qty: 180 1RF omeprazole 40 mg capsule,delayed release(DR/EC) 40 mg PO DAILY 90 Days Qty: 90 1RF sumatriptan succinate 25 mg tablet 25 mg PO Q2-4H PRN (Reason: migraine headache) 30 Days Qty: 9 1RF Rx Instructions: do not exceed 8 doses per 24 hrs ibuprofen 600 mg tablet 600 mg PO Q6H PRN (Reason: pain) Qty: 30 0RF acetaminophen [Tylenol Extra Strength] 500 mg tablet 1,000 mg PO QID PRN (Reason: pain) Qty: 30 0RF Mirena 20 mcg/24 hours (7 yrs) 52 mg intrauterine device 1 device intrauterine CONT pyridoxine (vitamin B6) 100 mg tablet 100 mg PO DAILY Qty: 90 3RF ondansetron 4 mg tablet,disintegrating 4 mg PO Q12H Qty: 20 0RF Rx Instructions: Only take one every 12 hours as needed if you have nausea Discharge Orders: Discharge Order (Routine); Ordered 10/08/24 Ordered By: Vaughn Garcia Activity Restrictions/Additional Instructions: 1) You can shower. Remove the abdominal binder when you shower. 2) Wear the binder at all times until when you shower 3) Avoid any tension at the abdomen and always have help getting up. Keep knees slighly bent and upper torso flexed forward. No abdominal stretching 4) Diet: 4 protein shakes with 1 scoop in 8oz of almond milk each one and one protein bar until you have a bowel movement. Once you have a bowel movement please change diet plan to your regular meal plan 5) Avoid heavy lifting for 3 weeks 6) Take Tylenol 500mg every 4 hours, around the clock for the next 3-4 days. If pain has improved you may slowly reduce its frequency 7) Avoid aspirin, Motrin, Aleve, Advil, Naproxyn, Ibuprofen for 2 weeks 8) Call Dr. Garcia at [phone] for fever >101F, persistent incisional pain,, discharge from any of the incisions, swelling, redness, shortness of breath, calf pain Print Language: [place]
[2024-10-08] MEDS: oxyCODONE HCl Immed Release 5 MG TABLET PO (13:40)
[2024-10-08] MEDS: fentaNYL citrate/PF 100 MCG/2 ML VIAL 25 MCG IVPUSH ×2 (14:00→14:10)
== END 2024-10-08 15:41 | disposition home or self-care (01) ==
PROVIDERS: Nurse Practitioner; PCP Internal Medicine; Visit Provider Surgery
PROC: (CPT 43774; principal; 2024-10-08 10:20)
DX: K95.09 Other complications of gastric band procedure (principal); K91.2 Postsurgical malabsorption, not elsewhere classified; R11.10 Vomiting, unspecified; E66.01 Morbid (severe) obesity due to excess calories; Z68.42 Body mass index [BMI] 45.0-49.9, adult; K21.9 Gastro-esophageal reflux disease without esophagitis; E78.00 Pure hypercholesterolemia, unspecified; E51.9 Thiamine deficiency, unspecified; R79.89 Other specified abnormal findings of blood chemistry; G43.909 Migraine, unspecified, not intractable, without status migrainosus; Z79.1 Long term (current) use of non-steroidal anti-inflammatories (NSAID); Z79.899 Other long term (current) drug therapy; Z79.84 Long term (current) use of oral hypoglycemic drugs; Z87.442 Personal history of urinary calculi; Z90.49 Acquired absence of other specified parts of digestive tract
CPT/HCPCS: 43774; 81025; 82947; 86850; 86900; 86901; 88302; C9145; J0131; J0690; J1100; J1171; J2003; J2250; J2371; J2405; J2704; J2795; J3010

== ENCOUNTER 2024-10-15 12:41 | Outpatient (AMB) | payer OTHER, SELFPAY ==
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
[2024-10-15 13:15] VITALS: BP 114/73; PULSE 92; TEMP 36.8; O2SAT 96; BMI 47.4
== END 2024-10-15 13:42 | disposition home or self-care (01) ==
PROVIDERS: PCP Internal Medicine; Visit Provider Physician Assistant Surgical
DX: Z98.84 Bariatric surgery status (principal)
CPT/HCPCS: 99024

== ENCOUNTER → 2024-10-15 12:41 | Outpatient (BNVA) | payer OTHER, SELFPAY | PROVIDERS: PCP Internal Medicine; Visit Provider Physician Assistant Surgical | DX: Z98.84 Bariatric surgery status (principal) | CPT/HCPCS: 99212 ==

== ENCOUNTER 2024-10-24 13:41 | Outpatient (AMB) | payer OTHER, SELFPAY ==
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
[2024-10-24 13:56] VITALS: BP 118/76; PULSE 69; O2SAT 98; BMI 47.3
--- OUTSIDE RECORDS SUMMARY | 2024-10-24 14:39 | XMS_ITS | Clinical Summary ---
Author Organization [employer] Address [address] [place] [address] Care Team Providers Care Outpatient Physical Therapist Name Role Phone Unavailable Primary Care Provider [...] caries 03/08/2023 Dental plaque 02/14/2023 Fractured dental restorationist with loss of materi al 02/14/2023 Family [...] Description 02/12/2025 10:00 AM EDT Office Visit [facility] ADULT DENTAL [address] [place] [address] Socrates Leearis [address] [place] [address] Health Maintenance Due Date Last Done Comments [...] Most Recently Relevant to Health Maintenance Insurance DENTAL-[facility] MEDICAID STAND ADULT DENTAL-[facility] MEDICAID STAND ADULT
--- OUTSIDE RECORDS SUMMARY | 2024-10-24 14:39 | XMS_ITS | Encounter Summary ---
Author Organization [employer] Address [address] [place] [address] Care Team Providers Care Stem Roller Operator Name Role Phone Unavailable Primary Care Provider Unavailabl e Encounter Details Date Type Department Care Team (Latest Contact Info) Description 07/05/2021 Abstract [facility] CONVERSIONS Dental, Provider, DDS Social History Tobacco [...] 10:00 AM EDT Office Visit [facility] ADULT DENTAL [address] [place] [address] Jesus, Yanet [address] [place] [address] documented as of this encounter Visit Diagnoses Not on filedocumented in this encounter
--- OUTSIDE RECORDS SUMMARY | 2024-10-24 14:39 | XMS_ITS | Encounter Summary ---
Author Organization [employer] Address [address] [place] [address] Care Team Providers Care Health Program Director Name Role Phone Unavailable Primary Care Provider Unavailabl e Encounter Details Date Type Department Care Team (Latest Contact Info) Description 09/26/2019 Abstract [facility] CONVERSIONS Dental, Provider, DDS Social [...] Description 02/12/2025 10:00 AM EDT Office Visit [facility] ADULT DENTAL [address] [place] [address] Jesus, Yanet [address] [place] [address] documented as of this encounter Visit Diagnoses Not on filedocumented in this encounter
== END 2024-10-24 15:11 | disposition home or self-care (01) ==
PROVIDERS: PCP Internal Medicine; Visit Provider Internal Medicine
DX: E11.9 Type 2 diabetes mellitus without complications (principal); F32.0 Major depressive disorder, single episode, mild; E78.5 Hyperlipidemia, unspecified; G47.00 Insomnia, unspecified; E66.01 Morbid (severe) obesity due to excess calories; Z68.42 Body mass index [BMI] 45.0-49.9, adult

== ENCOUNTER → 2024-10-24 13:41 | Outpatient (BNVA) | payer OTHER, SELFPAY | PROVIDERS: PCP Internal Medicine; Visit Provider Internal Medicine | DX: E11.9 Type 2 diabetes mellitus without complications (principal); F32.0 Major depressive disorder, single episode, mild; E78.5 Hyperlipidemia, unspecified; E66.01 Morbid (severe) obesity due to excess calories; Z68.42 Body mass index [BMI] 45.0-49.9, adult; Z71.3 Dietary counseling and surveillance | CPT/HCPCS: 96127; 99212 ==

== ENCOUNTER 2024-10-25 11:25 | Outpatient (REF) | payer OTHER, SELFPAY ==
--- OUTSIDE RECORDS SUMMARY | 2024-10-25 12:33 | XMS_ITS | Encounter Summary ---
Author Organization [employer] Address [address] [place] [address] Care Team Providers Care Lunchroom Mother Name Role Phone Unavailable Primary Care Provider Unavailabl e Encounter Details Date Type Department Care Team (Latest Contact Info) Description 07/05/2021 Abstract [facility] CONVERSIONS Dental, Provider, DDS Social History [...] Description 02/12/2025 10:00 AM EDT Office Visit [facility] ADULT DENTAL [address] [place] [address] Jesus, Yanet [address] [place] [address] documented as of this encounter Visit Diagnoses Not on filedocumented in this encounter
--- OUTSIDE RECORDS SUMMARY | 2024-10-25 12:33 | XMS_ITS | Clinical Summary ---
Author Organization [employer] Address [address] [place] [address] Care Team Providers Care Digital Computer Systems Analyst Name Role Phone Unavailable Primary Care Provider [...] caries 03/08/2023 Dental plaque 02/14/2023 Fractured dental sabianist with loss of materi al 02/14/2023 Family [...] Description 02/12/2025 10:00 AM EDT Office Visit [facility] ADULT DENTAL [address] [place] [address] Socrates Leearis [address] [place] [address] Health Maintenance Due Date Last Done Comments [...] Most Recently Relevant to Health Maintenance Insurance DENTAL-[facility] MEDICAID STAND ADULT DENTAL-[facility] MEDICAID STAND ADULT
--- OUTSIDE RECORDS SUMMARY | 2024-10-25 12:33 | XMS_ITS | Encounter Summary ---
Author Organization [employer] Address [address] [place] [address] Care Team Providers Care Customer Operations Specialist Name Role Phone Unavailable Primary Care Provider Unavailabl e Encounter Details Date Type Department Care Team (Latest Contact Info) Description 09/26/2019 Abstract [facility] CONVERSIONS Dental, Provider, DDS Social History [...] Description 02/12/2025 10:00 AM EDT Office Visit [facility] ADULT DENTAL [address] [place] [address] Jesus, Yanet [address] [place] [address] documented as of this encounter Visit Diagnoses Not on filedocumented in this encounter
[2024-10-25 13:47] LABS: Alanine Aminotransferase 63 U/L (0-31); Albumin Level 3.8 g/dL (3.5-5.0); Alkaline Phosphatase 105 U/L (39-117); Anion Gap 13 (12-20); Aspartate Amino Transferase 38 U/L (5-31); Bilirubin Total 0.8 mg/dL (0.0-1.0); Blood Urea Nitrogen 15 mg/dL (9-16); Calcium 9.7 mg/dL (8.4-10.2); Carbon Dioxide 24 mmol/L (22-29); Chloride 111 mmol/L (96-108); Cholesterol 149 mg/dL (<200); Estimated Glomerular Filt Rate > 60; Glucose Fasting 103 mg/dL (60-99); HDL Cholesterol 30 mg/dL (>40); Iron 86 mcg/dL (30-160); LDL Cholesterol Calculated 89 mg/dL (<100); Percent Iron Saturation 33 % (15-50); Potassium 4.7 mmol/L (3.3-5.1); Sodium 143 mmol/L (135-145); Total Iron Binding Capacity 263 mcg/dL (228-428); Total Protein 7.5 g/dL (6.5-8.0); Triglycerides 152 mg/dL (<150); Unsaturated Iron Binding 177 ug/dL
[2024-10-25 13:51] LABS: Estimated Average Glucose 123 mg/dL; Hemoglobin A1C 159.8551 umol/L; Hemoglobin A1c % 5.9 % (<6.0); Total Hemoglobin (HGBA1C) 3890.5296 umol/L
[2024-10-25 14:03] LABS: Creatinine Urine 182.54 mg/dL; Microalbum/Creatinine Ratio Ur 4.3 ug/mg cr (<30)
[2024-10-25 14:22] LABS: Ferritin 117 ng/mL (10-250); TSH reflex Free T4 0.88 uIU/mL (0.32-4.0)
== END 2024-10-25 11:26 | disposition home or self-care (01) ==
LOC: HO.LAB 11:25
PROVIDERS: Internal Medicine; Absent Provider Surgery; PCP Internal Medicine; Visit Provider Internal Medicine
DX: E11.9 Type 2 diabetes mellitus without complications (principal); E78.5 Hyperlipidemia, unspecified; R80.9 Proteinuria, unspecified; R79.89 Other specified abnormal findings of blood chemistry
CPT/HCPCS: 36415; 80053; 80061; 82043; 82570; 82728; 83036; 83540; 84443

== ENCOUNTER 2024-11-06 08:42 | Outpatient (REF) | payer OTHER, SELFPAY ==
--- NOTE | ~2024-11-06 | US_ITS ---
EXAMINATION: US RETROPERITONEAL LIMITED (RENAL ONLY) CLINICAL INFORMATION: Calculus of kidneys. COMPARISON: None available. TECHNIQUE: Routine retroperitoneal imaging with regards to kidneys was performed. FINDINGS: RIGHT KIDNEY: 11.9 x 4.8 x 5.8 cm (SAG x AP x TRV). The kidney is normal in size, contour, and echogenicity. Renal cortical thickness is normal. No calculi or focal parenchymal lesions. No hydronephrosis. LEFT KIDNEY: 12.0 x 4.6 x 4.5 cm (SAG x AP x TRV). The kidney is normal in size, contour, and echogenicity. There is echogenic stone midpole measuring 0.3 x 0.3 x 0.4 cm. There is no caliectasis or hydronephrosis. Renal cortical thickness is normal. No calculi or focal parenchymal lesions. US/US renal BI IMPRESSION: Unremarkable right kidney. Small echogenic stone midpole right kidney without caliectasis. Electronically signed by: Mynor Gil MD 11/08/2024 07:56 AM EST
--- OUTSIDE RECORDS SUMMARY | 2024-11-06 09:21 | XMS_ITS | Encounter Summary ---
Author Organization [employer] Address [address] [place] [address] Care Team Providers Care Vise Hand Name Role Phone Unavailable Primary Care Provider Unavailabl e Encounter Details Date Type Department Care Team (Latest Contact Info) Description 09/26/2019 Abstract [facility] CONVERSIONS Dental, Provider, DDS Social History [...] Description 02/12/2025 10:00 AM EDT Office Visit [facility] ADULT DENTAL [address] [place] [address] Jesus, Yanet [address] [place] [address] documented as of this encounter Visit Diagnoses Not on filedocumented in this encounter
--- OUTSIDE RECORDS SUMMARY | 2024-11-06 09:21 | XMS_ITS | Encounter Summary ---
Author Organization [employer] Address [address] [place] [address] Care Team Providers Care Cloth Stretcher Name Role Phone Unavailable Primary Care Provider Unavailabl e Encounter Details Date Type Department Care Team (Latest Contact Info) Description 07/05/2021 Abstract [facility] CONVERSIONS Dental, Provider, DDS Social History [...] Description 02/12/2025 10:00 AM EDT Office Visit [facility] ADULT DENTAL [address] [place] [address] Jesus, Yanet [address] [place] [address] documented as of this encounter Visit Diagnoses Not on filedocumented in this encounter
--- OUTSIDE RECORDS SUMMARY | 2024-11-06 09:22 | XMS_ITS | Clinical Summary ---
Author Organization [email or web address] Address [address] [place] [address] Care Team Providers Care Revenue Cycle Manager Name Role Phone Unavailable Primary Care Provider [...] caries 03/08/2023 Dental plaque 02/14/2023 Fractured dental cheondoism with loss of materi al 02/14/2023 Family [...] Description 02/12/2025 10:00 AM EDT Office Visit [facility] ADULT DENTAL [address] [place] [address] Socrates Leearis [address] [place] [address] Health Maintenance Due Date Last Done Comments [...] Most Recently Relevant to Health Maintenance Insurance DENTAL-[facility] MEDICAID STAND ADULT DENTAL-[facility] MEDICAID STAND ADULT
== END 2024-11-06 08:43 | disposition home or self-care (01) ==
LOC: HO.US 08:42
PROVIDERS: PCP Internal Medicine; Visit Provider Internal Medicine
DX: N20.0 Calculus of kidney (principal)
CPT/HCPCS: 76775

== ENCOUNTER → 2024-11-06 08:44 | Outpatient (BNV) | payer OTHER, SELFPAY | PROVIDERS: PCP Internal Medicine; Visit Provider Radiology Diagnostic Radiology | DX: N20.0 Calculus of kidney (principal) | CPT/HCPCS: 76775 ==

== ENCOUNTER 2024-11-21 08:57 | Outpatient (AMB) | payer OTHER, SELFPAY ==
--- OUTSIDE RECORDS SUMMARY | 2024-11-21 09:29 | XMS_ITS | Clinical Summary ---
Author Organization [email or web address] Address [address] [place] [address] Care Team Providers Care Automatic Chief Name Role Phone Unavailable Primary Care Provider [...] caries 03/08/2023 Dental plaque 02/14/2023 Fractured dental quaker with loss of materi al 02/14/2023 Family [...] 02/12/2025 10:00 AM EDT Office Visit [facility] ADULT DENTAL [address] [place] [address] Socrates Leearis [address] [place] [address] Health Maintenance Due Date Last Done Comments [...] Most Recently Relevant to Health Maintenance Insurance DENTAL-[facility] MEDICAID STAND ADULT DENTAL-[facility] MEDICAID STAND ADULT
--- OUTSIDE RECORDS SUMMARY | 2024-11-21 09:29 | XMS_ITS | Encounter Summary ---
Author Organization [employer] Address [address] [place] [address] Care Team Providers Care Motor Hotel Manager Name Role Phone Unavailable Primary Care Provider Unavailabl e Encounter Details Date Type Department Care Team (Latest Contact Info) Description 07/05/2021 Abstract [facility] CONVERSIONS Dental, Provider, DDS Social History [...] EDT Office Visit [facility] ADULT DENTAL [address] [place] [address] Jesus, Yanet [address] [place] [address] documented as of this encounter Visit Diagnoses Not on filedocumented in this encounter
--- OUTSIDE RECORDS SUMMARY | 2024-11-21 09:29 | XMS_ITS | Encounter Summary ---
Author Organization [employer] Address [address] [place] [address] Care Team Providers Care Proofreader Name Role Phone Unavailable Primary Care Provider Unavailabl e Encounter Details Date Type Department Care Team (Latest Contact Info) Description 09/26/2019 Abstract [facility] CONVERSIONS Dental, Provider, DDS Social History [...] Description 02/12/2025 10:00 AM EDT Office Visit [facility] ADULT DENTAL [address] [place] [address] Jesus, Yanet [address] [place] [address] documented as of this encounter Visit Diagnoses Not on filedocumented in this encounter
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
[2024-11-21 10:35] VITALS: BP 134/84; PULSE 71; TEMP 36.3; O2SAT 95; BMI 47.2
== END 2024-11-21 10:53 | disposition home or self-care (01) ==
LOC: HO.HBS 08:58
PROVIDERS: PCP Internal Medicine; Visit Provider Physician Assistant Surgical
DX: Z98.84 Bariatric surgery status (principal)
CPT/HCPCS: 99024

== ENCOUNTER → 2024-11-21 08:57 | Outpatient (BNVA) | payer OTHER, SELFPAY | PROVIDERS: PCP Internal Medicine; Visit Provider Physician Assistant Surgical | DX: Z98.84 Bariatric surgery status (principal) | CPT/HCPCS: 99212 ==

== ENCOUNTER 2025-01-04 09:51 | Outpatient (AMB) | payer OTHER, SELFPAY ==
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
[2025-01-04 12:01] VITALS: BP 122/82; PULSE 72; TEMP 36.7; O2SAT 97; BMI 47.1
== END 2025-01-04 13:48 | disposition home or self-care (01) ==
PROVIDERS: PCP Internal Medicine; Visit Provider Physician Assistant Medical
DX: L02.91 Cutaneous abscess, unspecified (principal)

== ENCOUNTER → 2025-01-04 09:51 | Outpatient (BNVA) | payer OTHER, SELFPAY | PROVIDERS: PCP Internal Medicine; Visit Provider Physician Assistant Medical | DX: L02.91 Cutaneous abscess, unspecified (principal) | CPT/HCPCS: 99212 ==

== ENCOUNTER 2025-01-25 19:28 | Emergency (ER) | payer OTHER, SELFPAY ==
--- NOTE | ~2025-01-25 | CT_ITS ---
CLINICAL HISTORY: right abdominal pain, R O appendicitis CT abdomen and pelvis without contrast Comparison: CT/SR - CT ABDOMEN PELVIS WO/W IV CON - 08/31/23 11:38 EST Findings: Small hiatal hernia. Diffuse esophageal mural thickening, nonspecific. Atelectasis. Mild hepatosplenomegaly. Splenules. Nonspecific fullness/prominence in the distal pancreas coronal series 7, image 43. If clinical concern persists consider follow-up MRI. Nonobstructive bilateral subcentimeter renal calculi, largest in the left lower pole kidney measuring 5 mm. No bowel obstruction, pneumoperitoneum, or pneumatosis. Nonspecific subcutaneous edema along the right anterior abdominal wall. IUD in the uterine fundus. Scattered colonic diverticulosis without diverticulitis or colitis. Normal appendix. The bones are intact. Postcholecystectomy. IMPRESSION: Nonobstructive bilateral subcentimeter renal calculi, largest in the left lower pole kidney measuring 5 mm. This document has been electronically signed by: Adriel Meadows MD on 01/25/2025 21:19:25
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
[2025-01-25 19:37] VITALS: BP 138/89; PULSE 78; RESP 16; TEMP 36.3; O2SAT 95; BMI 48.4
[2025-01-25 19:48] LABS: MANUAL DIFF FLAG NO
[2025-01-25 19:56] LABS: Basophils Percent Auto 0.4 % (0-2); Eosinophils Absolute Auto 0.2 X10*3/uL (0.0-0.4); Eosinophils Percent Auto 2.1 % (0-4); Hematocrit 45.7 % (37.0-47.0); Hemoglobin 15.4 g/dl (12.0-16.0); Imm Gran Abs Auto 0.05 X10*3/uL (0.00-0.03); Imm Gran Pct Auto 0.5 % (0.0-0.4); Lymphocytes Absolute Auto 3.2 X10*3/uL (1.2-4.9); Lymphocytes Percent Auto 30.7 % (20-40); Mean Corpuscular HGB Conc 33.7 g/dl (31.0-35.0); Mean Corpuscular Hemoglobin 29.1 pg (27.0-33.0); Mean Corpuscular Volume 86.4 fL (80.0-98.0); Mean Platelet Volume 9.9 fL (9.4-12.3); Monocytes Absolute Auto 0.7 X10*3/uL (0.1-1.2); Monocytes Percent Auto 6.9 % (2-11); Neutrophils Absolute Auto 6.3 x10*3/uL (2.0-8.3); Neutrophils Percent Auto 59.4 % (45-73); Platelet Count 255 X10*3/uL (160-400); Red Blood Count 5.29 X10*6/uL (4.20-5.50); Red Cell Distribution Width 13.2 % (11.0-16.0); White Blood Count 10.5 X10*3/uL (4.8-10.8)
--- NOTE | 2025-01-25 20:07 | ECG_ITS ---
Test Reason : EPIGASTRIC PAIN Blood Pressure : */* mmHG Vent. Rate : 67 BPM Atrial Rate : 67 BPM P-R Int : 208 ms QRS Dur : 82 ms QT Int : 392 ms P-R-T Axes : 40 -28 31 degrees QTcB Int : 414 ms Normal sinus rhythm Cannot rule out Anterior infarct , age undetermined Abnormal ECG When compared with ECG of 24-Jan-2024 09:01, No significant change was found Referred By: Yoav Smith Electronically Signed By: Jhon Castro
[2025-01-25 20:11] LABS: Alanine Aminotransferase 35 U/L (0-31); Albumin Level 3.8 g/dL (3.5-5.0); Alkaline Phosphatase 121 U/L (39-117); Anion Gap 11 (12-20); Aspartate Amino Transferase 25 U/L (5-31); Bilirubin Total 0.4 mg/dL (0.0-1.0); Blood Urea Nitrogen 10 mg/dL (9-16); Calcium 9.9 mg/dL (8.4-10.2); Carbon Dioxide 27 mmol/L (22-29); Chloride 108 mmol/L (96-108); Creatinine Clr Calc Pharmacy 80.8; Estimated Glomerular Filt Rate 53; Glucose Random 152 mg/dL (60-115); Lipase 37 U/L (8-78); Potassium 4.2 mmol/L (3.3-5.1); Sodium 142 mmol/L (135-145); Total Protein 7.3 g/dL (6.5-8.0)
--- NOTE | 2025-01-25 20:11 | PC.NURSE ---
49 yo F presents to ED via walk-in triage c/o +AP and +nausea x1 day, denies vomiting, denies fever/chills, no diarrhea, reports regular BM, VSS, ambulatory gait observed, hx of type II DM, compliant with meds, labs obtained as ordered, dispo pending
[2025-01-25 20:13] LABS: HCG Quantitative < 2 mIU/mL
[2025-01-25] MEDS: Magnesium Hydrox/Alum Hydrox 30 ML ORAL.SUSP PO (20:41)
[2025-01-25 20:42] LABS: Troponin-I High Sensitivity < 2.7 ng/L (<3.5-17.0)
[2025-01-25 21:18] VITALS: BP 132/94; PULSE 68; RESP 16; TEMP 36.3; O2SAT 98
--- NOTE | 2025-01-25 21:36 | MHC.EDTECH ---
T/w asked Pt if she is able to give us a urine sample yet and she stated no. Pt provided with urine cup and wipes and made Pt aware of where the nearest bathroom was.
[2025-01-25] MEDS: Famotidine 20 MG TABLET PO (21:38)
[2025-01-25 21:50] LABS: Appearance Urine Clear; Color Urine Yellow; Glucose Urine UA Negative (Negative); Leukocyte Esterase Urine Negative (Negative); Nitrite Urine Negative (Negative); PH 6.5 (5.0-9.0); Specific Gravity - Urine <= 1.005 (1.005-1.025); Urine Blood Negative (Negative); Urine Ketones Negative (Negative); Urine Protein Negative (Neg-Trace)
[2025-01-25] MEDS: Acetaminophen 325 MG TABLET 650 MG PO (21:50)
[2025-01-25 21:55] LABS: Bacteria Urine None Seen (None Seen); Hyaline Casts Urine 0-2 /LPF (0-2); RBC Urine 0-2 /HPF (0-2); Squamous Epithelial Cell Urine 0-2 /HPF (0-2); WBC Urine 0-5 /HPF (0-5)
[2025-01-25 21:57] VITALS: BP 132/94; PULSE 68; RESP 16; TEMP 36.3; O2SAT 98
== END 2025-01-25 21:58 | disposition home or self-care (01) ==
PROVIDERS: Physician Assistant; Emergency Provider Emergency Medicine; PCP Internal Medicine
DX: A05.9 Bacterial foodborne intoxication, unspecified (principal); R10.2 Pelvic and perineal pain; R94.31 Abnormal electrocardiogram [ECG] [EKG]; R10.13 Epigastric pain; Z79.899 Other long term (current) drug therapy
CPT/HCPCS: 36415; 74176; 80053; 81001; 83690; 84484; 84702; 85025; 93005; 99284; 99285

== ENCOUNTER → 2025-01-25 20:00 | Outpatient (BNV) | payer OTHER, SELFPAY | PROVIDERS: Emergency Provider Emergency Medicine; PCP Internal Medicine; Visit Provider Radiology Diagnostic Radiology | DX: N20.0 Calculus of kidney (principal) | CPT/HCPCS: 74176 ==

== ENCOUNTER → 2025-01-25 20:07 | Outpatient (BNV) | payer OTHER, SELFPAY | PROVIDERS: Emergency Provider Emergency Medicine; PCP Internal Medicine; Visit Provider Internal Medicine Cardiovascular Disease | DX: R10.13 Epigastric pain (principal); R94.31 Abnormal electrocardiogram [ECG] [EKG] | CPT/HCPCS: 93010 ==

== ENCOUNTER 2025-01-31 10:29 | Outpatient (AMB) | payer OTHER, SELFPAY ==
[2025-01-31 10:29] VITALS: BP 122/76; PULSE 71; TEMP 36.3; O2SAT 97; BMI 49.1
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
--- OUTSIDE RECORDS SUMMARY | 2025-01-31 11:10 | XMS_ITS | Encounter Summary ---
Author Organization [employer] Address [address] [place] [address] Care Team Providers Care Geophysical Laboratory Director Name Role Phone Unavailable Primary Care Provider Unavailabl e Encounter Details Date Type Department Care Team (Latest Contact Info) Description 07/05/2021 Abstract [facility] CONVERSIONS Dental, Provider, DDS Social [...] Description 02/12/2025 10:00 AM EDT Office Visit [facility] ADULT DENTAL [address] [place] [address] Jesus, Yan[place] [address] [place] [address] documented as of this encounter Visit Diagnoses Not on filedocumented in this encounter
== END 2025-01-31 11:19 | disposition home or self-care (01) ==
PROVIDERS: PCP Internal Medicine; Visit Provider Physician Assistant
DX: R31.29 Other microscopic hematuria (principal); K59.04 Chronic idiopathic constipation; Z13.9 Encounter for screening, unspecified

== ENCOUNTER → 2025-01-31 10:29 | Outpatient (BNVA) | payer OTHER, SELFPAY | PROVIDERS: PCP Internal Medicine; Visit Provider Physician Assistant | DX: R31.29 Other microscopic hematuria (principal); K59.04 Chronic idiopathic constipation | CPT/HCPCS: 81003; 99212 ==

== ENCOUNTER 2025-02-28 07:04 | Outpatient (REF) | payer OTHER, SELFPAY ==
--- NOTE | ~2025-02-28 | XR_ITS ---
EXAMINATION: X-ray knees, bilaterally CLINICAL INFORMATION: Pain TECHNIQUE: AP views both knees in standing position. Lateral and sunrise views both knees.. COMPARISON: May 17, 2024. FINDINGS: Mild joint space narrowing involving the medial and lateral compartments. No acute cortical disruption or malalignment. No suprapatellar bursa joint effusion. No lytic or blastic lesions. No metallic or radiopaque foreign body. No subcutaneous emphysema. XR/XR Knee Jimmy 3V IMPRESSION: Mild bicompartmental osteoarthrosis. No acute fracture or dislocation. No gross joint effusion, suprapatellar bursa. No gross change. Electronically signed by: Vivek Shields MD 02/28/2025 09:49 AM EDT
--- OUTSIDE RECORDS SUMMARY | 2025-03-03 07:07 | XMS_ITS | Encounter Summary ---
Author Organization [facility] Address [address] [place] [address] Care Team Providers Care Presentation Manager Name Role Phone Yasemin Barron DO Primary Care Pro vider Unavailable Reason for Visit * Reason Onset Date Comments Genetic Counseling 03/02/2017 Encounter Details Date Type Department Care Team Description 03/02/2017 Telephone Genetic & Disease Counseling - [address] [address] Asiya Isaac PA-C Genetic Counseling Social History [...] on filedocumented in this encounter Care Teams Presentation Manager Relationship Specialty Start Date End Date Yasemin Barron DO PCP - General Internal Medicine 12/13/13 documented as of this encounter
== END 2025-02-28 07:05 | disposition home or self-care (01) ==
LOC: HO.HOSX 07:04
PROVIDERS: Visit Provider Physician Assistant
DX: M17.0 Bilateral primary osteoarthritis of knee (principal); E11.9 Type 2 diabetes mellitus without complications
CPT/HCPCS: 20610; 73562; 99212; J1010; J2003

== ENCOUNTER 2025-02-28 08:34 | Outpatient (AMB) | payer OTHER, SELFPAY ==
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
--- OUTSIDE RECORDS SUMMARY | 2025-02-28 08:44 | XMS_ITS | Encounter Summary ---
Author Organization [employer] Address [address] [place] [address] Care Team Providers Care Advertising Editor Name Role Phone Unavailable Primary Care Provider Unavailabl e Encounter Details Date Type Department Care Team (Latest Contact Info) Description 07/05/2021 Abstract [facility] CONVERSIONS Dental, Provider, DDS Social History [...]
[2025-02-28 08:51] VITALS: BMI 49.1
== END 2025-02-28 09:08 | disposition home or self-care (01) ==
LOC: HO.HOS 08:35
PROVIDERS: PCP Internal Medicine; Visit Provider Physician Assistant
DX: M17.0 Bilateral primary osteoarthritis of knee (principal); E11.9 Type 2 diabetes mellitus without complications
CPT/HCPCS: 20610; 99213

== ENCOUNTER → 2025-02-28 08:37 | Outpatient (BNV) | payer OTHER, SELFPAY | PROVIDERS: Visit Provider Radiology Diagnostic Radiology | DX: M17.0 Bilateral primary osteoarthritis of knee (principal) | CPT/HCPCS: 73562 ==

== ENCOUNTER 2025-03-03 14:14 | Outpatient (AMB) | payer OTHER, SELFPAY ==
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
[2025-03-03 15:13] VITALS: BP 118/86; BMI 47.6
== END 2025-03-03 15:55 | disposition home or self-care (01) ==
LOC: HO.HMCH 14:15
PROVIDERS: PCP Internal Medicine; Visit Provider Internal Medicine
DX: E78.5 Hyperlipidemia, unspecified (principal); E11.9 Type 2 diabetes mellitus without complications; E66.01 Morbid (severe) obesity due to excess calories; Z68.42 Body mass index [BMI] 45.0-49.9, adult; K21.9 Gastro-esophageal reflux disease without esophagitis; F32.0 Major depressive disorder, single episode, mild

== ENCOUNTER → 2025-03-03 14:14 | Outpatient (BNVA) | payer OTHER, SELFPAY | PROVIDERS: PCP Internal Medicine; Visit Provider Internal Medicine | DX: E11.9 Type 2 diabetes mellitus without complications (principal); E66.01 Morbid (severe) obesity due to excess calories; K21.9 Gastro-esophageal reflux disease without esophagitis; E78.5 Hyperlipidemia, unspecified; F32.0 Major depressive disorder, single episode, mild; R80.9 Proteinuria, unspecified; Z68.42 Body mass index [BMI] 45.0-49.9, adult; Z79.899 Other long term (current) drug therapy | CPT/HCPCS: 83036; 96127; 99212 ==

== ENCOUNTER 2025-03-06 09:23 | Outpatient (AMB) | payer OTHER, SELFPAY ==
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
[2025-03-06 09:29] VITALS: BP 116/72; PULSE 74; O2SAT 97; BMI 48.4
--- OUTSIDE RECORDS SUMMARY | 2025-03-06 09:42 | XMS_ITS | Encounter Summary ---
Author Organization [employer] Address [address] [place] [address] Care Team Providers Care Door Fitter Name Role Phone Unavailable Primary Care Provider Unavailabl e Encounter Details Date Type Department Care Team (Latest Contact Info) Description 07/05/2021 Abstract [facility] CONVERSIONS Dental, Provider, DDS Social History [...]
== END 2025-03-06 09:39 | disposition home or self-care (01) ==
LOC: HO.HKA 09:24
PROVIDERS: PCP Internal Medicine; Visit Provider Internal Medicine Hypertension Specialist
DX: Z87.448 Personal history of other diseases of urinary system (principal); N20.0 Calculus of kidney; N18.9 Chronic kidney disease, unspecified
CPT/HCPCS: 99214

== ENCOUNTER → 2025-03-06 09:23 | Outpatient (BNVA) | payer OTHER, SELFPAY | PROVIDERS: PCP Internal Medicine; Visit Provider Internal Medicine Hypertension Specialist | DX: N20.0 Calculus of kidney (principal); N18.9 Chronic kidney disease, unspecified; Z87.448 Personal history of other diseases of urinary system | CPT/HCPCS: 99212 ==

== ENCOUNTER 2025-03-15 09:25 | Outpatient (REF) | payer OTHER, SELFPAY ==
--- OUTSIDE RECORDS SUMMARY | 2025-03-15 11:12 | XMS_ITS | Encounter Summary ---
Author Organization [facility] Address [address] [place] [address] Care Team Providers Care Workers Compensation Paralegal Name Role Phone Yasemin Barron DO Primary Care Pro vider Unavailable Reason for Visit * Reason Onset Date Comments Genetic Counseling 03/02/2017 Encounter Details Date Type Department Care Team Description 03/02/2017 Telephone Genetic & Disease Counseling - [address] [address] Asiya Isaac PA-C Genetic Counseling Social History [...] on filedocumented in this encounter Care Teams Workers Compensation Paralegal Relationship Specialty Start Date End Date Yasemin Barron DO PCP - General Internal Medicine 12/13/13 documented as of this encounter
[2025-03-15 13:52] LABS: Appearance Urine Cloudy; Glucose Urine UA Negative (Negative); PH 5.5 (5.0-9.0); Specific Gravity - Urine 1.020 (1.005-1.025); UMIC TRIGGER UACC YES
[2025-03-15 13:54] LABS: UACC Culture Trigger YES
== END 2025-03-15 09:26 | disposition home or self-care (01) ==
LOC: HO.LAB 09:25
PROVIDERS: PCP Internal Medicine; Visit Provider Physician Assistant Medical
DX: N30.01 Acute cystitis with hematuria (principal); R30.0 Dysuria; Z13.89 Encounter for screening for other disorder
CPT/HCPCS: 81001; 81003; 87086; 87088; 87186; 99212

== ENCOUNTER 2025-03-15 09:25 | Outpatient (AMB) | payer OTHER, SELFPAY ==
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
[2025-03-15 09:29] VITALS: BP 92/62; PULSE 69; RESP 16; TEMP 36.9; O2SAT 97; BMI 48.7
== END 2025-03-15 11:11 | disposition home or self-care (01) ==
PROVIDERS: PCP Internal Medicine; Visit Provider Physician Assistant Medical
DX: Z13.9 Encounter for screening, unspecified (principal)

== ENCOUNTER 2025-03-17 16:56 | Emergency (ER) | payer OTHER, SELFPAY ==
--- NOTE | ~2025-03-17 | XR_ITS ---
CLINICAL HISTORY: sternal cp 2 view chest x-ray. Comparison: CR/SR - XR CHEST 2 VIEWS - 08/29/23 23:13 EST Findings: The lungs are adequately expanded. No focal consolidation. No effusion or pneumothorax. Cardiac and mediastinal contours are within normal limits. No acute osseous abnormality Impression: No acute process. This document has been electronically signed by: Sumanth Jordan MD on 03/17/2025 18:34:53
--- NOTE | 2025-03-17 17:04 | ECG_ITS ---
Test Reason : CP Blood Pressure : */* mmHG Vent. Rate : 77 BPM Atrial Rate : 77 BPM P-R Int : 194 ms QRS Dur : 84 ms QT Int : 376 ms P-R-T Axes : 38 -29 32 degrees QTcB Int : 425 ms Normal sinus rhythm Normal ECG When compared with ECG of 25-Jan-2025 20:11, No significant change was found Referred By: Minerva Richardson Electronically Signed By: CHEYANNE HCONG
[2025-03-17 17:27] VITALS: BP 125/84; PULSE 71; RESP 16; TEMP 36.1; O2SAT 97; BMI 49.4
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
[2025-03-17 18:23] LABS: MANUAL DIFF FLAG NO
[2025-03-17 18:25] LABS: Hematocrit 48.6 % (37.0-47.0); Hemoglobin 15.7 g/dl (12.0-16.0); Imm Gran Abs Auto 0.08 X10*3/uL (0.00-0.03); Imm Gran Pct Auto 0.6 % (0.0-0.4); Lymphocytes Absolute Auto 2.8 X10*3/uL (1.2-4.9); Mean Corpuscular HGB Conc 32.3 g/dl (31.0-35.0); Mean Corpuscular Hemoglobin 28.8 pg (27.0-33.0); Mean Corpuscular Volume 89.2 fL (80.0-98.0); NRBC Abs Auto 0.000 X10*3/uL (0.0-0.012); NRBC Pct Auto 0.0 /100WBC (0.0-0.2); Platelet Count 291 X10*3/uL (160-400); Red Blood Count 5.45 X10*6/uL (4.20-5.50); White Blood Count 12.5 X10*3/uL (4.8-10.8)
[2025-03-17 18:41] LABS: Alanine Aminotransferase 26 U/L (0-31); Albumin Level 4.3 g/dL (3.5-5.0); Alkaline Phosphatase 145 U/L (39-117); Anion Gap 11 (12-20); Aspartate Amino Transferase 24 U/L (5-31); Blood Urea Nitrogen 13 mg/dL (9-16); Calcium 9.7 mg/dL (8.4-10.2); Carbon Dioxide 29 mmol/L (22-29); Chloride 106 mmol/L (96-108); Creatinine Clr Calc Pharmacy 88.3; Estimated Glomerular Filt Rate 58; Lipase 30 U/L (8-78); Magnesium 2.0 mg/dL (1.6-2.6); Potassium 4.3 mmol/L (3.3-5.1); Sodium 142 mmol/L (135-145); Total Protein 7.7 g/dL (6.5-8.0)
[2025-03-17 18:49] LABS: Troponin-I High Sensitivity < 2.7 ng/L (<3.5-17.0)
[2025-03-17 20:24] VITALS: BP 124/76; PULSE 69; RESP 18; TEMP 36.6; O2SAT 97
[2025-03-17 20:26] VITALS: BP 124/76; PULSE 69; RESP 18; TEMP 36.6; O2SAT 97
== END 2025-03-17 20:27 | disposition home or self-care (01) ==
PROVIDERS: Physician Assistant Medical; Emergency Provider Emergency Medicine; PCP Internal Medicine
DX: R07.9 Chest pain, unspecified (principal); E78.5 Hyperlipidemia, unspecified
CPT/HCPCS: 36415; 71046; 80053; 83690; 83735; 84484; 85025; 93005; 99283

== ENCOUNTER → 2025-03-17 17:04 | Outpatient (BNV) | payer OTHER, SELFPAY | PROVIDERS: Emergency Provider Emergency Medicine; PCP Internal Medicine; Visit Provider Internal Medicine | DX: R07.2 Precordial pain (principal) | CPT/HCPCS: 93010 ==

== ENCOUNTER → 2025-03-17 17:35 | Outpatient (BNV) | payer OTHER, SELFPAY | PROVIDERS: PCP Internal Medicine; Visit Provider Radiology Vascular & Interventional Radiology | DX: R07.89 Other chest pain (principal) | CPT/HCPCS: 71046 ==

== ENCOUNTER 2025-03-23 08:20 | Emergency (ER) | payer OTHER, SELFPAY ==
[2025-03-23 08:24] VITALS: BP 111/77; PULSE 79; RESP 16; TEMP 36.4; O2SAT 97; BMI 37.4
--- OUTSIDE RECORDS SUMMARY | 2025-03-23 08:42 | XMS_ITS | Encounter Summary ---
Author Organization [facility] Address [address] [place] [address] Care Team Providers Care Head Baggage Porter Name Role Phone Yasemin Barron DO Primary Care Pro vider Unavailable Reason for Visit * Reason Onset Date Comments Genetic Counseling 03/02/2017 Encounter Details Date Type Department Care Team Description 03/02/2017 Telephone Genetic & Disease Counseling - [address] [id number] Asiya Isaac PA-C Genetic Counseling Social History [...] on filedocumented in this encounter Care Teams Head Baggage Porter Relationship Specialty Start Date End Date Yasemin Barron DO PCP - General Internal Medicine 12/13/13 documented as of this encounter
[2025-03-23 08:53] LABS: MANUAL DIFF FLAG NO
[2025-03-23 08:54] LABS: Hematocrit 46.4 % (37.0-47.0); Hemoglobin 15.3 g/dl (12.0-16.0); Imm Gran Abs Auto 0.07 X10*3/uL (0.00-0.03); Imm Gran Pct Auto 0.6 % (0.0-0.4); Lymphocytes Absolute Auto 2.9 X10*3/uL (1.2-4.9); Mean Corpuscular HGB Conc 33.0 g/dl (31.0-35.0); Mean Corpuscular Hemoglobin 29.2 pg (27.0-33.0); Mean Corpuscular Volume 88.5 fL (80.0-98.0); NRBC Abs Auto 0.000 X10*3/uL (0.0-0.012); NRBC Pct Auto 0.0 /100WBC (0.0-0.2); Platelet Count 250 X10*3/uL (160-400); Red Blood Count 5.24 X10*6/uL (4.20-5.50); White Blood Count 12.4 X10*3/uL (4.8-10.8)
[2025-03-23 08:57] VITALS: BP 114/76; PULSE 79; RESP 16; TEMP 36.7; O2SAT 96
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
[2025-03-23 08:58] LABS: Appearance Urine Cloudy; Glucose Urine UA Negative (Negative); PH 6.0 (5.0-9.0); Specific Gravity - Urine 1.020 (1.005-1.025); UMIC TRIGGER UACC YES
--- NOTE | 2025-03-23 08:59 | PC.NURSE ---
Patient presents to ED c/o UTI symtpoms. Patient was seen at walk in clinic for UTI, patient reports foul smeeling urine and dysuria. Patient finished macrobid and is still experiencing the same symptoms and decided to come to [facility] [place]. Denies fever,chills, SOB. VSS and up to date. Provider in to see patient. Plan of care on going.
[2025-03-23 09:01] LABS: UACC Culture Trigger YES
[2025-03-23 09:09] LABS: Alanine Aminotransferase 22 U/L (0-31); Albumin Level 3.9 g/dL (3.5-5.0); Alkaline Phosphatase 144 U/L (39-117); Anion Gap 10 (12-20); Aspartate Amino Transferase 17 U/L (5-31); Blood Urea Nitrogen 13 mg/dL (9-16); Calcium 8.9 mg/dL (8.4-10.2); Carbon Dioxide 26 mmol/L (22-29); Chloride 111 mmol/L (96-108); Creatinine Clr Calc Pharmacy 80.8; Estimated Glomerular Filt Rate 58; Potassium 4.3 mmol/L (3.3-5.1); Sodium 143 mmol/L (135-145); Total Protein 7.2 g/dL (6.5-8.0)
[2025-03-23 09:16] LABS: Glucose, Whole Blood 99 mg/dL (60-115)
[2025-03-23 10:04] VITALS: BP 113/63; PULSE 74; RESP 16; TEMP 36.8; O2SAT 97
== END 2025-03-23 10:12 | disposition home or self-care (01) ==
PROVIDERS: Emergency Provider Emergency Medicine; PCP Internal Medicine
DX: N30.01 Acute cystitis with hematuria (principal); Z98.84 Bariatric surgery status; Z79.899 Other long term (current) drug therapy
CPT/HCPCS: 36415; 80053; 81001; 82947; 85025; 87086; 87088; 87186; 96374; 99284; J0696

== ENCOUNTER 2025-04-07 09:06 | Outpatient (AMB) | payer OTHER, SELFPAY ==
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
--- OUTSIDE RECORDS SUMMARY | 2025-04-07 09:32 | XMS_ITS | Encounter Summary ---
Author Organization [facility] Address [address] [place] [address] Care Team Providers Care Printer'S Devil Name Role Phone Yasemin Barron DO Primary Care Pro vider Unavailable Reason for Visit * Reason Onset Date Comments Genetic Counseling 03/02/2017 Encounter Details Date Type Department Care Team Description 03/02/2017 Telephone Genetic & Disease Counseling - [address] [address] Asiya Isaac PA-C Genetic Counseling Social History [...] on filedocumented in this encounter Care Teams Printer'S Devil Relationship Specialty Start Date End Date Yasemin Barron DO PCP - General Internal Medicine 12/13/13 documented as of this encounter
--- OUTSIDE RECORDS SUMMARY | 2025-04-07 09:32 | XMS_ITS | Encounter Summary ---
Author Organization [employer] Address [address] [place] [address] Care Team Providers Care Security And Compliance Project Manager Name Role Phone Unavailable Primary Care Provider Unavailabl e Encounter Details Date Type Department Care Team (Latest Contact Info) Description 07/05/2021 Abstract [facility] CONVERSIONS Dental, Provider, DDS Social [...]
== END 2025-04-07 10:07 | disposition home or self-care (01) ==
PROVIDERS: PCP Internal Medicine; Visit Provider Urology
DX: N20.0 Calculus of kidney (principal); Z87.448 Personal history of other diseases of urinary system; N18.9 Chronic kidney disease, unspecified; N39.0 Urinary tract infection, site not specified
CPT/HCPCS: 99214

== ENCOUNTER → 2025-04-07 09:06 | Outpatient (BNVA) | payer OTHER, SELFPAY | PROVIDERS: PCP Internal Medicine; Visit Provider Urology | DX: N20.0 Calculus of kidney (principal); Z87.448 Personal history of other diseases of urinary system; N18.9 Chronic kidney disease, unspecified; N39.0 Urinary tract infection, site not specified | CPT/HCPCS: 99212 ==

== ENCOUNTER 2025-04-22 10:02 | Outpatient (REF) | payer OTHER, SELFPAY ==
--- NOTE | ~2025-04-22 | US_ITS ---
EXAMINATION: US KIDNEY BILATERAL HISTORY: N20.0 - Calculus of kidney TECHNIQUE: Real-time grayscale ultrasound imaging of the kidneys was performed and images were reviewed. COMPARISON: Comparison is made with the prior examination dated 11/06/2024. FINDINGS: Right kidney: The right kidney measures 11.4 x 5.2 x 5.3 cm. Renal parenchymal echotexture and thickness are normal. There are no masses. There is no hydronephrosis or renal calculi. Left Kidney: The left kidney measures 11.5 x 4.4 x 5.4 cm. Renal parenchymal echotexture and thickness are normal. There are no masses. There is a 3 mm calculus in the interpolar region. There is no hydronephrosis. US/US renal BI IMPRESSION: 3 mm nonobstructing left renal calculus. Otherwise unremarkable renal ultrasound. Electronically signed by: Raffaele Matamoros MD 04/22/2025 10:47 AM EDT
== END 2025-04-22 10:03 | disposition home or self-care (01) ==
LOC: HO.US 10:02
PROVIDERS: PCP Internal Medicine; Visit Provider Urology
DX: N20.0 Calculus of kidney (principal)
CPT/HCPCS: 76775

== ENCOUNTER → 2025-04-22 10:16 | Outpatient (BNV) | payer OTHER, SELFPAY | PROVIDERS: PCP Internal Medicine; Visit Provider Radiology Diagnostic Radiology | DX: N20.0 Calculus of kidney (principal) | CPT/HCPCS: 76775 ==

== ENCOUNTER 2025-04-28 13:20 | Outpatient (REF) | payer OTHER, SELFPAY ==
--- NOTE | ~2025-04-28 | MM_ITS ---
EXAMINATION: MM SCREENING DIGITAL BREAST TOMOSYNTHESIS, BILATERAL CLINICAL INFORMATION: Screening. Asymptomatic. COMPARISON: Comparison made to multiple prior, most recent January 05, 2024, and most remote August 25, 2020. TECHNIQUE: Digital breast tomosynthesis is performed in both the craniocaudal and mediolateral oblique views along with computer-aided detection (CAD). FINDINGS: BREAST COMPOSITION: There are scattered areas of fibroglandular density (ACR BI-RADS breast composition Category b). BILATERAL BREASTS: No significant masses, suspicious calcifications or other abnormalities are seen in either breast. MM/MM tomosynthesis screening BI IMPRESSION: BILATERAL BREASTS: Negative, no mammographic evidence of malignancy. Normal interval follow-up is recommended in 12 months. ASSESSMENT: BI-RADS 1 - Negative RECOMMENDATION: Routine annual mammography screening. FOLLOW-UP: 1 year F/U This examination should not preclude the clinical evaluation of a suspicious palpable abnormality. This patient's information was entered into a reminder system with a target due date for their next mammogram. Electronically signed by: Martha Plummer MD 05/02/2025 06:26 PM EDT
--- OUTSIDE RECORDS SUMMARY | 2025-04-28 14:41 | XMS_ITS | Encounter Summary ---
Author Organization [employer] Address [address] [place] [address] Care Team Providers Care Fisher Trot Line Name Role Phone Unavailable Primary Care Provider Unavailabl e Encounter Details Date Type Department Care Team (Latest Contact Info) Description 09/26/2019 Abstract [facility] CONVERSIONS Dental, Provider, DDS Social History [...]
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
--- OUTSIDE RECORDS SUMMARY | 2025-04-28 14:41 | XMS_ITS | Encounter Summary ---
Author Organization [employer] Address [address] [facility] 7[address] [place] [address] Care Team Providers Care Hand Model Name Role Phone Unavailable Primary Care Provider Unavailabl e Encounter Details Date Type Department Care Team (Latest Contact Info) Description 07/05/2021 Abstract [facility] CONVERSIONS Dental, Provider, DDS Social [...]
== END 2025-04-28 13:21 | disposition home or self-care (01) ==
LOC: HO.MAMMO 13:20
PROVIDERS: PCP Internal Medicine; Visit Provider Internal Medicine
DX: Z12.31 Encounter for screening mammogram for malignant neoplasm of breast (principal)
CPT/HCPCS: 77063; 77067

== ENCOUNTER → 2025-04-28 13:30 | Outpatient (BNV) | payer OTHER, SELFPAY | PROVIDERS: PCP Internal Medicine; Visit Provider Radiology Body Imaging | DX: Z12.31 Encounter for screening mammogram for malignant neoplasm of breast (principal) | CPT/HCPCS: 77063; 77067 ==

== ENCOUNTER 2025-05-14 09:26 | Outpatient (REF) | payer OTHER, SELFPAY | END 2025-05-14 09:27 | disposition home or self-care (01) | LOC: HO.LNP 09:26 | PROVIDERS: PCP Internal Medicine; Visit Provider Obstetrics & Gynecology | DX: Z01.419 Encounter for gynecological examination (general) (routine) without abnormal findings (principal); Z11.51 Encounter for screening for human papillomavirus (HPV) | CPT/HCPCS: 81025; 87626; 88175; 99396 ==

== ENCOUNTER 2025-05-14 09:26 | Outpatient (AMB) | payer OTHER, SELFPAY ==
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
[2025-05-14 10:44] VITALS: BP 116/76; BMI 48.7
--- OUTSIDE RECORDS SUMMARY | 2025-05-14 11:14 | XMS_ITS | Encounter Summary ---
Author Organization [facility] Address [address] [place] [address] Care Team Providers Care Clerical Clerk Name Role Phone Yasemin Barron DO Primary Care Pro vider Unavailable Encounter Details Date Type Department Care Team Description 08/09/2016 It Project Manager Report Medical Records [address] [place] [id number] Abstract, Provider Social History Tobacco Use Types [...] on filedocumented in this encounter Care Teams Clerical Clerk Relationship Specialty Start Date End Date Yasemin Barron DO PCP - General Internal Medicine 12/13/13 documented as of this encounter
--- OUTSIDE RECORDS SUMMARY | 2025-05-14 11:14 | XMS_ITS | Encounter Summary ---
Author Organization [facility] Address [address] [place] [address] Care Team Providers Care Subscription Clerk Name Role Phone Yasemin aBrron DO Primary Care Pro vider Unavailable Encounter Details Date Type Department Care Team Description 02/28/2014 Telephone Dermatology [address] [place] [id number] Keagan Rodriguez MD Social History Tobacco Use [...] on filedocumented in this encounter Care Teams Subscription Clerk Relationship Specialty Start Date End Date Yasemin Barron DO PCP - General Internal Medicine 12/13/13 documented as of this encounter
--- OUTSIDE RECORDS SUMMARY | 2025-05-14 11:14 | XMS_ITS | Encounter Summary ---
Author Organization [facility] Address [address] [place] [address] Care Team Providers Care Envelope Machine Adjuster Name Role Phone Yasemin Barron DO Primary Care Pro vider Unavailable Encounter Details Date Type Department Care Team Description 05/08/2019 Release of Information Medical Records [address] [place] [id number] Abstract, Provider Social History Tobacco Use Types [...] on filedocumented in this encounter Care Teams Envelope Machine Adjuster Relationship Specialty Start Date End Date Yasemin Barron DO PCP - General Internal Medicine 12/13/13 documented as of this encounter
--- OUTSIDE RECORDS SUMMARY | 2025-05-14 11:14 | XMS_ITS | Encounter Summary ---
Author Organization [facility] Address [address] [place] [address] Care Team Providers Care Credit Collections Analyst Name Role Phone Yasemin Barron DO Primary Care Pro vider Unavailable Reason for Visit * Reason Onset Date Comments Genetic Counseling 03/02/2017 Encounter Details Date Type Department Care Team Description 03/02/2017 Telephone Genetic & Disease Counseling - [address] [address] Asiya Isaac PA-C Genetic Counseling Social History [...] on filedocumented in this encounter Care Teams Credit Collections Analyst Relationship Specialty Start Date End Date Yasemin Barron DO PCP - General Internal Medicine 12/13/13 documented as of this encounter
--- OUTSIDE RECORDS SUMMARY | 2025-05-14 11:14 | XMS_ITS | Clinical Summary ---
Author Organization [facility] Address [address] [place] [address] Care Team Providers Care Die Operator Name Role Phone SergiodennisYasemin Reid DO Primary [...] Due Influenza Flu (PT Reported) 06/24/2014 MMR (Qawriqd-Vwals-Jprtona) 04/01/2015 Tdap 03/18/2015 Family History Medical History [...] 74 05/18/2017 9:13 AM EDT Temperature 37 C (98.6 F) 05/18/2017 9:13 AM EDT Respiratory Rate 14 [...] CHOLESTEROL SCREENING 11/11/2021 11/11/2016 , 03/17/2015, 05/14/2014 BMI CHECK/ADVISE 09/04/2024 11/09/2016, , 06/24/2014, Additional history exists DTAP/TDAP/TD (2 - Td or Tdap) 03/18/2025 03/18/2015 INFLUENZA (#1) 2025 11/09/2016 (Refu sed), 06/24/2014 PNEUMOCOCCAL VACCINE FOR HIG H RISK PATIENTS (#1) 2042 Care Teams Die Operator Relationship Specialty Start Date End Date Yasemin Barron DO PCP - General Internal Medicine 12/13/13
--- OUTSIDE RECORDS SUMMARY | 2025-05-14 11:14 | XMS_ITS | Encounter Summary ---
Author Organization [facility] Address [address] [place] [address] Care Team Providers Care Digital Community Manager Name Role Phone Yasemin Barron DO Primary Care Pro vider Unavailable Encounter Details Date Type Department Care Team Description 09/14/2016 Helix Coil Winder Report Medical Records [address] [place] [id number] Abstract, Provider Social History Tobacco Use Types [...] on filedocumented in this encounter Care Teams Digital Community Manager Relationship Specialty Start Date End Date Yasemin Barron DO PCP - General Internal Medicine 12/13/13 documented as of this encounter
--- OUTSIDE RECORDS SUMMARY | 2025-05-14 11:14 | XMS_ITS | Encounter Summary ---
Author Organization [employer] Address [address] [facility] 7t [place] [address] Care Team Providers Care Sap Ppm Consultant Name Role Phone Unavailable Primary Care Provider Unavailabl e Encounter Details Date Type Department Care Team (Latest Contact Info) Description 07/05/2021 Abstract [facility] CONVERSIONS Dental, Provider, DDS [...] Care Team (Late st Contact Info) Description 05/15/2025 11:00 AM EDT Office Visit [facility] ADULT DENTAL [address] [place] [address] Jesus, Yanet [address] [place] [address] documented as of this encounter Visit Diagnoses Not on filedocumented in this encounter
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
--- OUTSIDE RECORDS SUMMARY | 2025-05-14 11:14 | XMS_ITS | Encounter Summary ---
Author Organization [facility] Address [address] [place] [address] Care Team Providers Care Metallography Teacher Name Role Phone Yasemin Barron DO Primary Care Pro vider Unavailable Encounter Details Date Type Department Care Team Description 02/25/2014 Telephone Dermatology [address] [place] [phone] Keagan Rodriguez MD Social History Tobacco Use [...] on filedocumented in this encounter Care Teams Metallography Teacher Relationship Specialty Start Date End Date Yasemin Barron DO PCP - General Internal Medicine 12/13/13 documented as of this encounter
--- OUTSIDE RECORDS SUMMARY | 2025-05-14 11:14 | XMS_ITS | Encounter Summary ---
Author Organization [employer] Address [address] [facility] [address] [place] [address] Care Team Providers Care Supervisor Rework Name Role Phone Unavailable Primary Care Provider Unavailabl e Encounter Details Date Type Department Care Team (Latest Contact Info) Description 09/26/2019 Abstract [facility] CONVERSIONS Dental, Provider, DDS Social [...] Description 05/15/2025 11:00 AM EDT Office Visit [facility] ADULT DENTAL [address] [place] [address] Jesus, Yanet [address] [place] [address] documented as of this encounter Visit Diagnoses Not on filedocumented in this encounter
--- OUTSIDE RECORDS SUMMARY | 2025-05-14 11:14 | XMS_ITS | Encounter Summary ---
Author Organization [facility] Address [address] [place] [address] Care Team Providers Care Counter Tender Name Role Phone Yasemin Barron DO Primary Care Pro vider Unavailable Encounter Details Date Type Department Care Team Description 09/26/2016 Hatchery Attendant Report Medical Records [address] [place] [id number] Eh Castro MD Social History Tobacco Use [...] on filedocumented in this encounter Care Teams Counter Tender Relationship Specialty Start Date End Date Yasemin Barron DO PCP - General Internal Medicine 12/13/13 documented as of this encounter
== END 2025-05-14 11:48 | disposition home or self-care (01) ==
LOC: HO.HWS 09:26
PROVIDERS: PCP Internal Medicine; Visit Provider Obstetrics & Gynecology
DX: Z32.02 Encounter for pregnancy test, result negative (principal); Z01.419 Encounter for gynecological examination (general) (routine) without abnormal findings
CPT/HCPCS: 99396; 99459

== ENCOUNTER 2025-05-19 09:18 | Outpatient (AMB) | payer OTHER, SELFPAY ==
--- OUTSIDE RECORDS SUMMARY | 2025-05-15 11:00 | XMS_ITS | Encounter Summary ---
Author Organization [employer] Address [address] [facility] [address] [place] [address] Care Team Providers Care Cardiothoracic Physiotherapist Name Role Phone Unavailable Primary Care Provider Unavailabl e Reason for Visit * Reason Comments Routine Cleaning Dental Exam Perio chart X-rays Encounter Details Date Type Department Care Team (Latest Contact Info) Description 05/15/2025 11:00 AM EDT Office Visit [facility] [address] [place] [address] Jesus, Yanet [address] [place] [address] Hypereruption of tooth (Primary Dx); Dental plaque; Missing teeth, acquired Social History Tobacco Use Types Packs/Day Years Used Date Smoking Tobacco: Never Passive Smoke Exposure: Never Smokeless Tobacco: Never Alcohol Use Standard Drinks/Week Comments Defer 0 (1 standard drink = 0.6 oz pur e alcohol) Comments Unknown Sex and Gender Information Value Date Recorded Sex Assigned at Female 07/04/2022 10:18 AM EDT Legal Sex Female 10:18 AM EDT Gender Identity Female 07/04/2022 10:18 AM EDT Sexual Orientation Straight 07/04/2022 10 :18 AM EDT documented as of this encounter Last Filed Vital Signs Vital Sign Reading Time Taken Comments Blood Pressure 130/74 05/15/2025 9:33 AM EDT Pulse - - Temperature - - Respiratory Rate - - Oxygen Saturation - - Inhaled Oxygen Concentration - - Weight - - Height - - Body Mass Index - - documented in this encounter Progress Notes * Yanet Lee - 05/15/2025 11:00 AM EDT Patient ID: Adela Damon is a 49 y.o. female. Time Out: Timeout Date: 05/15/25, Timeout Time: 934 (Prophy, x-rays, periodic, Perio chart) Location: [facility] Tooth: Maxilla and Mandible Procedure: Exam, X-rays, Prophylaxis, and Perio chart Verified the above with patient, social and human services assistant, and provider. Confirmed via patient's chart, intraorally and by radiographs. Condominium Association Manager: not applicable Medical Hx: Vitals: Blood pressure 130/74. Medications, Med Hx reviewed with patient and updated in chart. Treatment Provided Dental procedures in this visit D0274 - BITEWINGS - 4 RADIOGRAPHIC IMAGES (Completed) Service provider: Yanet Paul provider: Mario Meeks DDS [id number] - INTRAORAL - PERIAPICAL FIRST RADIOGRAPHIC IMAGE 7,8 (Completed) Service provider: Yanet Paul provider: Mario Meeks DDS [id number] - INTRAORAL - PERIAPICAL EACH ADDITIONAL RADIOGRAPHIC IMAGE 9,10 (Completed) Service provider: Yanet Paul provider: Mario Meeks DDS D1110 - PROPHYLAXIS - ADULT (Completed) Service provider: Yanet Paul provider: Mario Meeks DDS D1330 - ORAL HYGIENE INSTRUCTIONS (Completed) Service provider: Yanet Paul provider: Mario Meeks DDS [id number] - CASE PRESENTATION, DETAILED AND EXTENSIVE TREATMENT PLANNING (Completed) Service provider: Yanet Paul provider: Mario Meeks DDS [id number] - INTRAORAL - PERIAPICAL EACH ADDITIONAL RADIOGRAPHIC IMAGE 24,25 (Completed) Service provider: Yanet Paul provider: Mario Meeks DDS Instruments Used: Ultrasonic Scalers, Hand Scalers, and Prophy angle Fluoride: N/A Oral Cancer Screening: tonsillar hypertrophy on left Head/Neck Exam: dark tissue tags on neck and face Calculus: Light Plaque: Light Stain: Light Bleeding: Light Gingiva: pink OH: Fair Perio Chart: Completed Oral hygiene instructions provided to patient including brushing technique and flossing. Recommendations: [place] two times daily, modified vanegas technique, Floss daily, Electric toothbrush, Soft bristle toothbrush, [place] Tongue, Anti-sensitivity toothpaste Recall Frequency: 6 mo NV: 6 months prophy Hygienist: Yanet Lee RDH * Mario Meeks DDS - 05/15/2025 11:00 AM EDT Dental procedures in this visit D0274 - BITEWINGS - 4 RADIOGRAPHIC IMAGES (Completed) Service provider: Yanet Lee Billing provider: Mario Meeks DDS [id number] - INTRAORAL - PERIAPICAL FIRST RADIOGRAPHIC IMAGE 7,8 (Completed) Service provider: Yanet Lee Billing provider: Mario Meeks DDS [id number] - INTRAORAL - PERIAPICAL EACH ADDITIONAL RADIOGRAPHIC IMAGE 9,10 (Completed) Service provider: Yanet Lee Billing provider: Mario Meeks DDS D1110 - PROPHYLAXIS - ADULT (Completed) Service provider: Yanet Lee Billing provider: Mario Meeks DDS D1330 - ORAL HYGIENE INSTRUCTIONS (Completed) Service provider: Yanet Lee Billing provider: Mario Meeks DDS [id number] - CASE PRESENTATION, DETAILED AND EXTENSIVE TREATMENT PLANNING (Completed) Service provider: Yanet Lee Billing provider: Mario Meeks DDS [id number] - INTRAORAL - PERIAPICAL EACH ADDITIONAL RADIOGRAPHIC IMAGE 24,25 (Completed) Service provider: Yanet Lee Billing provider: Mario Meeks DDS Patient ID: Adela Damon is a 49 y.o. female. Time Out: Timeout Date: 05/15/25, Timeout Time: 934 (Prophy, x-rays, periodic, Perio chart) Location: [facility] Tooth: Maxilla and Mandible Procedure: Exam, X-rays, and Prophylaxis Verified the above with patient, social and human services assistant, and provider. Confirmed via patient's chart, intraorally and by radiographs. Condominium Association Manager: not applicable Chief Complaint Patient presents with Routine Cleaning Dental Exam Perio chart X-rays Medical Hx: Vitals: Blood pressure 130/74. Medical History[1] Medications: Encounter Medications[2] Objective HPI Soft Tissue Exam Findings added this encounter Tonsillar hypertrophy, unilateral on Pharynx Asymptomatic Head and Neck Exam: Lymph Nodes, Lips, Palate, Buccal Mucosa, Floor of Mouth, Tongue, Tonsils, Alveolar Ridges, Oropharynx, Salivary Ducts, and Vestibules normal appearance Details: Skin as charted OCS: negative Dental Exam As charted Missing teeth acquired T#14 crown functioning well Reference tooth chart for additional findings. Oral Cancer Risk: Low Risk Oral Hygiene Instructions: Min[place] two times daily, modified vanegas technique, Floss daily, Electric toothbrush, Soft bristle toothbrush, [place] Tongue Caries Risk Assessment: Low- no risk factor Assessment/Plan MARJAN X rays Prophy Patient tolerated procedure well, all questions answered and expressed understanding. Dismissed in good condition. NV: 6 mos recall Sole Conforming Machine Operator: Yanet Lee RDH Dentist: Mario Meeks DDS [1] Past Medical History: Diagnosis Date Diabetes mellitus (CMS/HCC) GERD (gastroesophageal reflux disease) High cholesterol Hypertension [2] Outpatient Encounter Medications as of 05/15/2025 Medication Sig Dispense Refill atorvastatin (Lipitor) 20 MG tablet Take 20 mg by mouth at bedtime. omeprazole (PriLOSEC) [address] capsule Take 40 mg by mouth in the morning. pyridoxine (Vitamin B-6) 100 MG tablet Take 100 mg by mouth in the morning. amitriptyline (Elavil) 10 MG tablet Take 10 mg by mouth at bedtime. Bisacodyl EC 5 MG EC tablet TAKE 2 TABLETS BY MOUTH AT 12:00PM THE DAY BEFORE YOUR PROCEDURE. GaviLAX 17 GM/SCOOP powder MIX AND DRINK 17 GRAMS DAILY metFORMIN (Glucophage) 500 MG tablet Take 500 mg by mouth 2 times daily. No facility-administered encounter medications on file as of 05/15/2025. documented in this encounter Plan of Treatment Upcoming Encounters Date Type Department Care Team (Late st Contact Info) Description 11/13/2025 9:30 AM EDT Office Visit [facility] [address] [place] [address] Yanet Lee [address] [place] [address] Scheduled Orders Name Type Priority Associated Diagnoses Orde r Schedule PROPHYLAXIS - ADULT Dental Routine 1 Occ urrences starting 05/15/2025 CASE PRESENTATION, DETAILED AND EXTENSIVE TREATMENT PLANNING Dental Routine 1 Occurrences starting 05/15/2025 ORAL HYGIENE INSTRUCTIONS Dental Routine 1 Occurrences starting 05/15/2025 documented as of this encounter Procedures Procedure Name Priority Date/Time Associated Diagnosis Comments PROPHYLAXIS - ADULT Routine 05/15/2025 1 1:00 AM EDT Dental plaque ORAL HYGIENE INSTRUCTIONS Routine 05/15/2025 11:00 AM EDT Dental plaque Missing teeth, acquired 7,8 INTRAORAL - PERIAPICAL FIRST RADIOGRAPHIC IMAGE Routine 05/15/2025 11:00 AM EDT Hypereruption of tooth Missing teeth, acquired 24,25 INTRAORAL - PERIAPICAL EACH ADDITIONAL RADIOGRAPHIC IMAGE Routine 05/15/2025 11:00 AM EDT Hypereruption of tooth Missing teeth, acquired 9,10 INTRAORAL - PERIAPICAL EACH ADDITIONAL RADIOGRAPHIC IMAGE Routine 05/15/2025 11:00 AM EDT Hypereruption of tooth Missing teeth, acquired CASE PRESENTATION, DETAILED AND EXTENSIVE TREATMENT PLANNING Routine 05/15/2025 11:00 AM EDT Hypereruption of tooth Dental plaque Missing teeth, acquired BITEWINGS - 4 RADIOGRAPHIC IMAGES Routine 05/15/2025 11:00 AM EDT Hypereruption of tooth Missing teeth, acquired documented in this encounter Visit Diagnoses Diagnosis Hypereruption of tooth- Primary Dental plaque Accretions on teeth Missing teeth, acquired documented in this encounter
--- NOTE | 2025-05-19 09:33 | AM.OFFVISNUR ---
Intake Visit Reasons: 6w/check urine Allergies pollard Allergy (Intermediate, Verified 05/14/25 10:45) Itching raspberry Allergy (Intermediate, Verified 05/14/25 10:45) Itching Nursing Note Patient presents to office for urine testing. Sample obtained. Patient inquired about right sided back pain, reviewed imaging and explained that stone is mid kidney and should not be causing any pain, but could be muscle related. Patient understood. Let patient know no signs of infection on UA. Patient understood and agreeable, patient to keep follow up as scheduled. Results AMB Urinalysis, Automated UA Leukoctes 0 Sachin/uL Last Edit by Osvaldo Mistry LPN on 05/19/25 09:41 UA Nitrite Negative Last Edit by Osvaldo Mistry LPN on 05/19/25 09:41 UA Urobilinogen 3.5 mg/dL Last Edit by Osvaldo Mistry LPN on 05/19/25 09:41 UA Protein 0 mg/dL Last Edit by Osvaldo Mistry LPN on 05/19/25 09:41 UA pH 5.5 Last Edit by Osvaldo Mistry LPN on 05/19/25 09:41 UA Blood 0 Bigg/uL Last Edit by Osvaldo Mistry LPN on 05/19/25 09:41 UA Specific [place] 1.025 Last Edit by Osvaldo Mistry LPN on 05/19/25 09:41 UA Ketone Negative Last Edit by Osvaldo Mistry LPN on 05/19/25 09:41 UA Bilirubin 0 mg/dL Last Edit by Osvaldo Mistry LPN on 05/19/25 09:41 UA Glucose 0 mg/dL Last Edit by Osvaldo Mistry LPN on 05/19/25 09:41 Assessment & Plan Assessment & Plan Orders: Orders AMB Urinalysis Automated Today N20.0 - Calculus of kidney, N39.0 - Urinary tract infection, site not specified, R31.29 - Other microscopic hematuria Coding
--- OUTSIDE RECORDS SUMMARY | 2025-05-19 10:58 | XMS_ITS | Clinical Summary ---
Author Organization [employer] Address [address] [facility] [address] [place] [address] Care Team Providers Care Ammonia Box Tender Name Role Phone Unavailable Primary Care Provider [...] Active Problems Problem Noted Date Diagnosed Date Hypereruption of tooth 05/15/2025 Missing teeth, acquired 05/15/2025 Chronic back pain 11/17/2023 History of ectopic 11/17/2023 History of nephrolithiasis 11/17/2023 History of cholecystectomy 11/17/2023 Personal history of gastric banding 11/17/2023 Hyperlipidemia 11/17/2023 Morbid obesity 11/17/2023 Postoperative state 11/17/2023 Dental caries 03/08/2023 Dental plaque 02/14/2023 Fractured dental confucianism with loss of materi al 02/14/2023 Family history of ovarian cancer 11/09/2016 Family history of uterine cancer 11/09/2016 Vitamin D deficiency 05/25/2014 Abnormal LFTs 08/09/2012 Biliary colic 06/18/2012 Constipation 06/14/2012 Disorder of female genital organs 06/14/2012 Dyslipidemia 06/14/2012 History of oophorectomy, unilateral 06/14/2012 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 Microscopic hematuria 06/14/2012 Obesity 06/14/2012 Encounters Date Type Department Care Team Description 05/15/2025 11:00 AM EDT Office Visit [facility] [address] [place] [address] Yanet Lee Hypereruption of tooth (Primary Dx); Dental plaque; Missing teeth, acquired 05/14/2025 Travel from Last 3 Months Immunizations Immunization Administration Dates Next Due Hep [...] Pressure 130/74 05/15/2025 9:33 AM EDT Pulse 72 10/19/2023 11:04 AM EST Temperature - - Respiratory Rate - - Oxygen Saturation - - Inhaled Oxygen Concentration - - Weight - - Height - - Body Mass Index - - Plan of Treatment Upcoming Encounters Date Type Department Care Team (Late st Contact Info) Description 11/13/2025 9:30 AM EDT Office Visit [facility] [address] [place] [address] Jesus, Yanet [address] [place] [address] Health Maintenance Due Date Last Done Comments [...] 2025 , 06/03/2020, 09/25/2018, Additional history exists Dental Prophylaxis 11/13/2025 05/15/2025, 1 , 10/19/2023, Additional history exists Tobacco Screening 05/15/2026 05/15/2025 Dental X-Ray: Bitewings 05/16/2026 05/15/20 25, 01/18/2024, 02/14/2023, Additional history exists Dental X-Ray: Full Mouth 11/17/2026 024, 02/14/2023, [...] Procedure Name Priority Date/Time Associated Diagnosis Comments 24,25 INTRAORAL - PERIAPICAL EACH ADDITIONAL RADIOGRAPHIC IMAGE Routine 05/15/2025 11:00 AM EDT Hypereruption of tooth Missing teeth, acquired CASE PRESENTATION, DETAILED AND EXTENSIVE TREATMENT PLANNING Routine 05/15/2025 11:00 AM EDT Hypereruption of tooth Dental plaque Missing teeth, acquired ORAL HYGIENE INSTRUCTIONS Routine 05/15/2025 11:00 AM EDT Dental plaque Missing teeth, acquired PROPHYLAXIS - ADULT Routine 05/15/2025 1 1:00 AM EDT Dental plaque 9,10 INTRAORAL - PERIAPICAL EACH ADDITIONAL RADIOGRAPHIC IMAGE Routine 05/15/2025 11:00 AM EDT Hypereruption of tooth Missing teeth, acquired 7,8 INTRAORAL - PERIAPICAL FIRST RADIOGRAPHIC IMAGE Routine 05/15/2025 11:00 AM EDT Hypereruption of tooth Missing teeth, acquired BITEWINGS - 4 RADIOGRAPHIC IMAGES Routine 05/15/2025 11:00 AM EDT Hypereruption of tooth Missing teeth, acquired PANORAMIC RADIOGRAPHIC IMAGE Routine 11/17/2023 11:30 AM EDT Acute pulpitis PERIODIC ORAL EVALUATION - ESTABLISHED PATIENT Routine 10/19/2023 11:00 AM EST from Last 3 Months or Most Recently Relevant to Health Maintenance [facility]
--- OUTSIDE RECORDS SUMMARY | 2025-05-19 10:58 | XMS_ITS | Encounter Summary ---
Author Organization [employer] Address [address] [facility] [address] [place] [address] Care Team Providers Care Furniture Polisher Name Role Phone Unavailable Primary Care Provider Unavailabl e Encounter Details Date Type Department Care Team (Latest Contact Info) Description 05/14/2025 Travel Social History Tobacco Use Types Packs/Day Years [...] Description 11/13/2025 9:30 AM EDT Office Visit [facility]ULT D[facility] [address] [place] [address] Socrates Leearis [address] [place] [address] documented as of this encounter Visit Diagnoses Not on filedocumented in this encounter
--- OUTSIDE RECORDS SUMMARY | 2025-05-19 10:58 | XMS_ITS | Encounter Summary ---
Author Organization [employer] Address [address] [facility] [address] [place] [address] Care Team Providers Care Planting Supervisor Name Role Phone Unavailable Primary Care Provider Unavailabl e Encounter Details Date Type Department Care Team (Latest Contact Info) Description 07/05/2021 Abstract [facility] CONVERSION[facility] Dental, Provider, DDS Social History Tobacco [...] Description 11/13/2025 9:30 AM EDT Office Visit [facility] ADULT D[facility] [address] [place] [address] Jesus, Yanet [address] [place] [address] documented as of this encounter Visit Diagnoses Not on filedocumented in this encounter
--- OUTSIDE RECORDS SUMMARY | 2025-05-19 10:58 | XMS_ITS | Encounter Summary ---
Author Organization [employer] Address [address] [facility] [address] [place] [address] Care Team Providers Care Functional Consultant Name Role Phone Unavailable Primary Care Provider Unavailabl e Encounter Details Date Type Department Care Team (Latest Contact Info) Description 09/26/2019 Abstract [facility] Dental, Provider, DDS Social History Tobacco [...] Description 11/13/2025 9:30 AM EDT Office Visit [facility] ADULT DENT[facility] [address] [place] [address] Jesus, Yanet [address] [place] [address] documented as of this encounter Visit Diagnoses Not on filedocumented in this encounter
== END 2025-05-19 10:00 | disposition home or self-care (01) ==
LOC: HO.HUSH 09:19
PROVIDERS: PCP Internal Medicine; Visit Provider Urology
DX: N39.0 Urinary tract infection, site not specified (principal); R31.29 Other microscopic hematuria; N20.0 Calculus of kidney

== ENCOUNTER → 2025-05-19 09:18 | Outpatient (BNVA) | payer OTHER, SELFPAY | PROVIDERS: PCP Internal Medicine; Visit Provider Urology | DX: N20.0 Calculus of kidney (principal); N39.0 Urinary tract infection, site not specified | CPT/HCPCS: 81003 ==

== ENCOUNTER 2025-06-10 10:40 | Outpatient (AMB) | payer OTHER, SELFPAY ==
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
[2025-06-10 11:05] VITALS: BMI 48.7
--- OUTSIDE RECORDS SUMMARY | 2025-06-10 12:59 | XMS_ITS | Encounter Summary ---
Author Organization [employer] Address [address] [facility] [address] [place] [address] Care Team Providers Care Separator Operator Shellfish Meats Name Role Phone Unavailable Primary Care Provider Unavailabl e Encounter Details Date Type Department Care Team (Latest Contact Info) Description 07/05/2021 Abstract [facility] CONVERSIONS Dental, Provider, DDS Social [...] Description 11/13/2025 9:30 AM EDT Office Visit [facility] ADULT DENT[facility] [address] [place] [address] Jesus, Yanet [address] [place] [address] documented as of this encounter Visit Diagnoses Not on filedocumented in this encounter
--- OUTSIDE RECORDS SUMMARY | 2025-06-10 12:59 | XMS_ITS | Clinical Summary ---
Author Organization [employer] Address [address] [facility] [address] [place] [address] Care Team Providers Care Fur Tanner Name Role Phone Unavailable Primary Care Provider [...] gastric banding 11/17/2023 Hyperlipidemia 11/17/2023 Morbid obesity (CMS/HCC) 11/17/2023 Postoperative state 11/17/2023 Dental caries 03/08/2023 Dental plaque 02/14/2023 Fractured dental orthodoxy with loss of materi al 02/14/2023 Family history of ovarian cancer 11/09/2016 Family history of uterine cancer 11/09/2016 Vitamin D deficiency 05/25/2014 Abnormal LFTs 08/09/2012 Biliary colic 06/18/2012 Constipation 06/14/2012 Disorder of female genital organs 06/14/2012 Dyslipidemia 06/14/2012 History of oophorectomy, unilateral 06/14/2012 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 Microscopic hematuria 06/14/2012 Obesity 06/14/2012 Encounters Date Type Department Care Team Description 05/15/2025 11:00 AM EDT Office Visit [facility] [address] [place] [address] Yanet Lee Hypereruption of tooth (Primary Dx); [...] Description 11/13/2025 9:30 AM EDT Office Visit [facility] [address] [place] [address] Jesus, Yanet [address] [place] [address] Health Maintenance Due Date Last Done Comments [...] Most Recently Relevant to Health Maintenance Insurance [place]
--- OUTSIDE RECORDS SUMMARY | 2025-06-10 12:59 | XMS_ITS | Encounter Summary ---
Author Organization [employer] Address [address] [facility] [address] [place] [address] Care Team Providers Care Title Inspector Name Role Phone Unavailable Primary Care Provider Unavailabl e Encounter Details Date Type Department Care Team (Latest Contact Info) Description 09/26/2019 Abstract [facility] CONVERSIONS Dental, Provider, DDS Social History [...] Description 11/13/2025 9:30 AM EDT Office Visit [facility] [address] [place] [address] Jesus, Yanet [address] [place] [address] documented as of this encounter Visit Diagnoses Not on filedocumented in this encounter
== END 2025-06-10 12:13 | disposition home or self-care (01) ==
LOC: HO.HOS 10:41
PROVIDERS: PCP Internal Medicine; Visit Provider Physician Assistant
DX: M17.0 Bilateral primary osteoarthritis of knee (principal)
CPT/HCPCS: 99213

== ENCOUNTER → 2025-06-10 10:40 | Outpatient (BNVA) | payer OTHER, SELFPAY | PROVIDERS: PCP Internal Medicine; Visit Provider Physician Assistant | DX: M17.0 Bilateral primary osteoarthritis of knee (principal) | CPT/HCPCS: 99212 ==

== ENCOUNTER 2025-07-09 10:21 | Outpatient (AMB) | payer OTHER, SELFPAY ==
[2025-07-09 10:26] VITALS: BP 104/76; PULSE 72; RESP 18; TEMP 36.3; O2SAT 97; BMI 51.6
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
--- OUTSIDE RECORDS SUMMARY | 2025-07-09 12:01 | XMS_ITS | Encounter Summary ---
Author Organization [employer] Address [address] [facility] [address] [place] [address] Care Team Providers Care Nutrition Services Aide Name Role Phone Unavailable Primary Care Provider Unavailabl e Encounter Details Date Type Department Care Team (Latest Contact Info) Description 07/05/2021 Abstract [facility] CONVERSIONS Dental, Provider, DDS Social [...] Description 11/13/2025 9:30 AM EDT Office Visit [facility] [address] [place] [address] Jesus, Yanet [address] [place] [address] documented as of this encounter Visit Diagnoses Not on filedocumented in this encounter
--- OUTSIDE RECORDS SUMMARY | 2025-07-09 12:01 | XMS_ITS | Encounter Summary ---
Author Organization [employer] Address [address] [facility] [address] [place] [address] Care Team Providers Care Medical Affairs Manager Name Role Phone Unavailable Primary Care Provider Unavailabl e Encounter Details Date Type Department Care Team (Latest Contact Info) Description 09/26/2019 Abstract [facility] CONVERSIONS Dental, Provider, DDS Social History [...] Description 11/13/2025 9:30 AM EDT Office Visit [facility] [address] [place] [address] Jesus, Yanet [address] [place] [address] documented as of this encounter Visit Diagnoses Not on filedocumented in this encounter
--- OUTSIDE RECORDS SUMMARY | 2025-07-09 12:01 | XMS_ITS | Data Portability ---
Author Organization [place] - [facility], Allergy Address [address] [facility] [address] [place] [address] Care Team Providers Care Prenatal Genetic Counselor Name Role Phone CARMELA MORALES Primary Care Provider Assessment Encounter Date Assessment Date Assessment LastModified by Organization Details LastModified Time 06/10/2025 06/10/2025 The patient presents today with both history and physical exam suggestive for chronic sinusitis. She does have a fairly crowded oropharynx, I do have some concern that she has obstructive sleep apnea has been undiagnosed. This has been minimally worked up so far. Nasal endoscopy was deferred . We will need a CT scan to better delineate the paranasal sinus disease. - CT Sinus Ordered - Continue Nasal Washes and Nasal Steroids - PSG ordered for sleep disordered breathing. - Start doxycycline - Return visit in 1 month to discuss symptoms and potential further interventions [email or web address] Not available 06/10/2025 14:22:23 Plan of Treatment Reminders Order Date Submit Date Provider Last Modified By Organization Details Last Modified Time Details Appointments Establish ed 15 2024 10:15A Mati Gonzalez, DO Not available Not available Not available Lab None recorded. Referral None recorded. Procedures polysomno graphy, diagnosti c (PROC) 2024 025 [email or web address] [facility], [address] [facility], [place], [address], 06/24/2025 14:41:17 Surgeries None recorded. Imaging CT, sinuses, w/o contrast - Chronic Sinusitis , Other 2024 025 ANDREW [facility] [place], [address], [address], [place], [address], 06/18/2025 15:19:52 Medication Orders fluticaso ne propionat e 50 mcg/actua tion nasal spray,claude pension 2024 025 [facility]acy #[id number], [address] [place], [address], 06/10/2025 14:20:40 doxycycli ne hyclate 100 mg tablet 2024 025 [facility] #[id number], [address] [place], [address], 07/08/2025 05:02:41 Patient TargetsNo targets recorded. Patient InstructionsNo instructions recorded. Reason for Referral None Reported. Results Created Date Observation Date Name Description Value Unit Range Abnormal Flag Note LastModifiedBy Organization Detail LastModifiedTime 06/18/2006/16/2025 CT, sinus es, w/o contr ast No observ ation record ed. ccomi [facility] [place] [address], [place], [address], 06/19/2025 12:40:05 Result Notes Documentation Provider Name and Address Organization Details Recorded Time Ct, Sinuses, W/o Contrast : Clear CT sinus without evidence of sinusitis. AYANNA richards [place] - [facility] 06/19/2025 12:40:05 Problems Name Problem SNOMED Code Status Onset Date Resolution Date Notes Provider Name and Address Organization Details Recorded Time Hypertrop hy of nasal turbinate s 63297052 Active 2017 Hypertrop hy of nasal turbinate s; Note: Date Diagnosed : 10/04/2017 10:09 AM (J34.3) Not Available [facility] 4 02:19:09 Impacted cerumen of bilateral ears 14051473941 47980 Active 2017 Impacted cerumen, bilateral ; Note: Date Diagnosed : 10/04/2017 10:06 AM (H61.23) Not Available [facility] 4 02:19:41 Disorder of smell 895835129 Active 2019 Unspecifi ed disturban miles of smell and taste; Note: Date Diagnosed : 01/29/2020 10:44 AM (R43.9) Not Available [facility] 4 02:18:53 Disorder of taste 636290972 Active 2019 Unspecifi ed disturban miles of smell and taste; Note: Date Diagnosed : 01/29/2020 10:44 AM (R43.9) Not Available [facility] 4 02:18:53 Gastroeso phageal reflux disease without esophagit is 714310152 Active 2019 Gastro-es ophageal reflux disease without esophagit is; Note: Date Diagnosed : 04/25/2016 1:43 PM (K21.9) Not Available [facility] 4 02:19:13 Dysphagia 64066747 Active 2019 Other dysphagia ; Note: Date Diagnosed : 01/29/2020 10:44 AM (R13.19) Not Available [facility] 4 02:19:35 Allergic rhinitis 14868863 Active 2020 Allergic rhinitis, unspecifi ed; Note: Date Diagnosed : 12/08/2020 10:37 AM (J30.9) Not Available [facility] 4 02:19:08 Chronic sinusitis 74037474 Active 2024 Sin Gonzalez DO [address] [address], [place], [address] , [place] - [facility] 5 12:51:30 Snoring 80447573 Active 2024 Sin Gonzalez DO [address] [facility],[place] [address], [place], [address] , [place] - [facility] 5 14:17:01 Finding related to sleep 765280190 Active 2024 Sin Gonzalez DO [address] [facility],[place] [address], [place], [address] , [place] - [facility] 5 14:17:08 Chronic rhinitis 49597932 Active 2024 Sin Gonzalez DO [address] [address], [place], [address] , [facility] 5 14:20:21 Problem Notes None recorded. Procedures Surgical History Date Name Laterality Status Provider Name and Address Organization Details Recorded Time 06/10/2025 Nasal Endo DDx_DHL completed Sin Gonzalez, DO [address] [facility],[place] [address], [place], [address], [facility] 06/10/2025 12:51:21 Imaging Results None recorded. Procedure Notes None recorded. Medical Equipment None Reported. Allergies Allergen ID Allergen Name Allergen Category Reaction Reaction Severity Criticality Documentation Date Start Date Code Code System Note Provider Name and Address Organization Details Recorded Time 58650 aspirin medicatio n other Not available Not available 01/16/2024 1191 RxNorm React ion: unkno wn, unspe cifie d;; Not Available [facility] 4 00:53:40 Medications Name Sig Start Date Stop Date Status Note LastModified by Organization Details LastModified Time pioglitaz one 15 mg tablet TAKE 1 TABLET BY MOUTH EVERY DAY active Not Available Not Available No t Available metformin 500 mg tablet TAKE 1 TABLET BY MOUTH TWICE A DAY FOR 90 DAYS 06/09 completed Not Available Not Available Not Available atorvasta tin 20 mg tablet TAKE 1 TABLET BY MOUTH EVERYDAY AT BEDTIME active Not Available Not Available No t Available meloxicam 15 mg tablet PLEASE SEE ATTACHED FOR DETAILED DIRECTIO NS 06/09 completed Not Available Not Available Not Available FreeStyle Lancets 28 gauge USE 1 LANCET ONCE A DAY active Not Available Not Available No t Available phenazopy ridine 200 mg tablet TAKE 1 TABLET BY MOUTH 3 TIMES A DAY FOR 2 DAYS 06/09 completed Not Available Not Available Not Available sumatript an 25 mg tablet TAKE 1 TABLET ORALLY EVERY 2 TO 4 HOURS NEEDED FOR MIGRAINE HEADACHE FOR 30 DAYS MAX 8 DOSES/24 HR 06/09 completed Not Available Not Available Not Available omeprazol e 40 mg capsule,d elayed release TAKE 1 CAPSULE BY MOUTH EVERY DAY active Not Available Not Available No t Available methocarb jaquelin 750 mg tablet TAKE 1 TABLET BY MOUTH THREE TIMES A DAY NEEDED FOR MUSCLE SPASM 06/09 completed Not Available Not Available Not Available phenazopy ridine 100 mg tablet TAKE 1 TABLET BY MOUTH EVERY 8 HOURS FOR 6 DOSES 06/09 completed Not Available Not Available Not Available nitrofura ntoin macrocrys hal 100 mg capsule TAKE 1 CAP (100 MG) ORALLY 2 TIMES A DAY FOR 5 DAYS MUST ADMINIST ER WITH A MEAL/TABATHA D 06/07 completed Not Available Not Available Not Available omeprazol e 20 mg capsule,d elayed release 1 capsule by mouth 06/09 completed Medicati on ID: [id number] D uration Value: 30 Prescri bed By Name: Raffaele soto MD Brand Name: omeprazo le Send Method: E-Prescr ibed Sub s Allowed: subs OK Medic ationGen ericName : omeprazo le Not Available Not Available Not Available hydroxyzi ne HCl 25 mg tablet TAKE 1 TABLET BY MOUTH AT BEDTIME NEEDED FOR ANXIETY FOR 30 DAYS active Not Available Not Available No t Available pyridoxin e (vitamin B6) 100 mg tablet TAKE 1 TABLET BY MOUTH EVERY DAY active Not Available Not Available No t Available cefuroxim e axetil 500 mg tablet TAKE 1 TABLET BY MOUTH TWICE A DAY 06/07 completed Not Available Not Available Not Available ondansetr on 4 mg disintegr ating tablet DISSOLVE 1 TABLET BY MOUTH EVERY 12 HOURS NEEDED FOR NAUSEA AND VOMITING 06/09 completed Not Available Not Available Not Available fluticaso ne propionat e 50 mcg/actua tion nasal spray,claude pension SPRAY 2 SPRAYS INTO EACH NOSTRIL EVERY DAY FOR 30 DAYS active Not Available Not Available No t Available doxycycli ne hyclate 100 mg tablet Take 1 tablet twice a day by oral route for 21 days. 07/08 completed Not Available Not Available Not Available amoxicill in 875 mg-potass ium clavulana te 125 mg tablet TAKE 1 TABLET BY MOUTH TWICE A DAY X10 DAYS 06/07 completed Not Available Not Available Not Available nitrofura ntoin monohydra te/macroc rystals 100 mg capsule TAKE 1 CAPSULE BY MOUTH TWICE A DAY FOR 7 DAYS. TAKE WITH FOOD. 06/07 completed Not Available Not Available Not Available FreeStyle Lite Strips USE 1 TEST STRIP ONCE A DAY active Not Available Not Available No t Available FreeStyle Anchor Lite kit DIRECTED active Not Available Not Available No t Available Vitals Date Recorded Body height Body mass index (BMI) Body weight Provider Name and Address Organization Details Last Updated DateTime 06/10/2025 160.02 cm 49.6 kg/m2 185805.86 g Renard Lopez [place] - [facility] 06/10/2025 13:47:54 Social History Question Answer Notes LastModified by Organizat ion Details LastModified Time Tobacco Smoking Status Never Smoker Renard richards [facility] 06/10/2025 13:47:24 What Type Of Flight Engineer Manager Do You Use? None Information not available 06/10/2025 Do You Have Any Pets? No Information not available 06/10/2025 Are You Passively Exposed To Smoke? No Information not available 06/10/2025 Are There Any Smokers In Your House? No Information not available 06/10/2025 Sex: Unknown Functional Status Question Answer Note LastModified by Organization Details LastModified Time Do you use any illicit or recreational drugs? No Information not available 06/10/2025 Do you or have you ever used any other forms of tobacco or nicotine? No Information not available 06/10/2025 What is your level of alcohol consumption? None Information not available 06/10/2025 What type of noise exposure are you exposed to? noExposureToExcessiveNoise Infor mation not available 06/10/2025 Mental Status None recorded. Family History Nothing Reported. Medical History Condition Response Allergies/Hayfever N Heart Problems N Anxiety Y Tonsil Infections Y Emphysema N Migraines N Thyroid Problems N Glaucoma N Depression N COPD N Developmental Delay N Nasal or Sinus Problems N Anemia N Immune System Disorder N Anesthesia Complications N Heart Attack ([place]) N Other Skin Condition N Diabetes Y Rhinitis N Bleeding Disorder N Food Allergy Y Arthritis Y Hearing Loss N Hyperlipidemia N Cancer N Stroke N Dementia N Nasal polyps N Asthma N High Cholesterol Y Sleep Disorder N GERD/Reflux Y Liver Disease N Headaches N Fibromyalgia N Hypertension N Speech Delay N Kidney Disease N Gynecological HistoryNo gynecological history recorded. Obstetrics History GPAL:G 0 P 0 0 0 0 Past Encounters Encounter ID Performer Location Encounter Start Date Encounter Closed Date Diagnosis/Indication Diagnosis SNOMED-CT Code Diagnosis ICD10 Code Diagnosis IMO Codes Diagnosis Note [id number] Sin Gonzalez DO [facility] [address] [place] [address] 06/10/2025 13:36:26 06/10/2025 14:23:56 Chronic sinusitis 37532791 J32.8 32623 Snoring 82361244 R06.83 14372 Finding re lated to sleep 869211907 G47.30 962816 Chronic rhinitis 8798348 6 J31.0 Health Concerns Section Related Observation LastModified by Organization Detai ls LastModified Time None Recorded Concern Status LastModified by Organization Details LastModified Time None Recorded Advance Directives Directive None Recorded Payers Insurance Date Sequence Insurance Name Policy Number Policy Liz Covered Member ID Liz Member ID Guarantor Name 07/07/2025 1 [employer] - HEALTH NET PLAN (MEDICAID HMO) ELVA Damon [id number] Adela Damon Notes Date Note Type Note Provider Name and Address Organization Details Recorded Time 06/10/2025 text/html ROS as noted in the HPI The patient presents today with sinus concerns and throat concern . Wakes up nightly gasping or choking on nasal drip. Endorses mildly poor sleep quality. No prior history of sleep apnea. Has a history of obesity. Current Symptoms: Nasal obstruction/congestion , PND, changes to sense of smell,Hx of Asthma: NoHx of NSAID/ASA sensitvity or immune deficiency: NoPrior Allergy Testing: NonePrior imaging: None Allergy Tx: NoneNasal Sprays: Using Nothing, , . Prior decongestant use.Courses of Antibiotics and steroids: None in 1 yearImmunotherapy Trials: NonePrior Sinus Surgery: No Record/Referral Review: N/a Sin Gonzalez DO [address] [place] [address], [phone], [facility] - [facility] 06/10/2025 14:23:19 OBGyn Episode No OBEpisode recorded.
--- OUTSIDE RECORDS SUMMARY | 2025-07-09 12:01 | XMS_ITS | Clinical Summary ---
Author Organization [employer] Address [address] [facility] [address] [place] [address] Care Team Providers Care Document Controller Name Role Phone Unavailable Primary Care Provider [...] caries 03/08/2023 Dental plaque 02/14/2023 Fractured dental zoroastrianism with loss of materi al 02/14/2023 Family history of ovarian cancer 11/09/2016 Family history of uterine cancer 11/09/2016 Vitamin D deficiency 05/25/2014 Abnormal LFTs 08/09/2012 Biliary colic 06/18/2012 Constipation 06/14/2012 Disorder of female genital organs 06/14/2012 Dyslipidemia 06/14/2012 History of oophorectomy, unilateral 06/14/2012 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
== END 2025-07-09 11:06 | disposition home or self-care (01) ==
LOC: HO.HMCH 10:21
PROVIDERS: PCP Internal Medicine; Visit Provider Internal Medicine
DX: Z00.00 Encounter for general adult medical examination without abnormal findings (principal); E11.9 Type 2 diabetes mellitus without complications; Z68.43 Body mass index [BMI] 50.0-59.9, adult; Z23 Encounter for immunization

== ENCOUNTER → 2025-07-09 10:21 | Outpatient (BNVA) | payer OTHER, SELFPAY | PROVIDERS: PCP Internal Medicine; Visit Provider Internal Medicine | DX: Z00.00 Encounter for general adult medical examination without abnormal findings (principal); E11.9 Type 2 diabetes mellitus without complications; E66.01 Morbid (severe) obesity due to excess calories; E78.5 Hyperlipidemia, unspecified; R80.9 Proteinuria, unspecified; Z23 Encounter for immunization; Z68.43 Body mass index [BMI] 50.0-59.9, adult | CPT/HCPCS: 90471; 90656; 99396 ==

== ENCOUNTER 2025-07-11 10:57 | Outpatient (REF) | payer OTHER, SELFPAY ==
[2025-07-11 12:36] LABS: Alanine Aminotransferase 30 U/L (0-31); Albumin Level 4.1 g/dL (3.5-5.0); Alkaline Phosphatase 144 U/L (39-117); Anion Gap 10 (12-20); Aspartate Amino Transferase 25 U/L (5-31); Blood Urea Nitrogen 12 mg/dL (9-16); Calcium 9.7 mg/dL (8.4-10.2); Carbon Dioxide 29 mmol/L (22-29); Chloride 108 mmol/L (96-108); Cholesterol 218 mg/dL (<200); Estimated Glomerular Filt Rate 57; HDL Cholesterol 33 mg/dL (>40); Potassium 4.3 mmol/L (3.3-5.1); Sodium 143 mmol/L (135-145); Total Protein 7.6 g/dL (6.5-8.0); Triglycerides 117 mg/dL (<150)
[2025-07-11 12:38] LABS: Microalbum/Creatinine Ratio Ur 6.2 ug/mg cr (<30)
--- OUTSIDE RECORDS SUMMARY | 2025-07-11 13:09 | XMS_ITS | Encounter Summary ---
Author Organization [employer] Address [address] [facility] [address] [place] [address] Care Team Providers Care Bakelite Molder Name Role Phone Unavailable Primary Care Provider [...] Description 11/13/2025 9:30 AM EDT Office Visit [facility] ADULT D[facility] [address] [place] [address] Jesus, Yanet [address] [place] [address] documented as of this encounter Visit Diagnoses Not on filedocumented in this encounter
--- OUTSIDE RECORDS SUMMARY | 2025-07-11 13:09 | XMS_ITS | Clinical Summary ---
Author Organization [employer] Address [address] [facility] [address]t [place] [address] Care Team Providers Care Rotary Shear Cutter Name Role Phone Unavailable Primary Care Provider [...] caries 03/08/2023 Dental plaque 02/14/2023 Fractured dental rastafari with loss of materi al 02/14/2023 Family history of ovarian cancer 11/09/2016 Family history of uterine cancer 11/09/2016 Vitamin D deficiency 05/25/2014 Abnormal LFTs 08/09/2012 Biliary colic 06/18/2012 Constipation 06/14/2012 Disorder of female genital organs 06/14/2012 Dyslipidemia 06/14/2012 History of oophorectomy, unilateral 06/14/2012 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
--- OUTSIDE RECORDS SUMMARY | 2025-07-11 13:09 | XMS_ITS | Continuity of Care Document ---
Author Organization [place] - [facility], [facility] Address [address] [place] [address] Care Team Providers Care Service Delivery Consultant Name Role Phone CARMELA MORALES Primary Care Provider [phone] Assessment Encounter Date Assessment Date Assessment LastModified [...] polysomno graphy, diagnosti c (PROC) 2024 025 [email or web address] [facility], [address] [place], [address], 06/24/2025 14:41:17 Surgeries None recorded. Imaging CT, sinuses, w/o contrast - Chronic Sinusitis , Other 10/2024 ANDREW [facility], [address], [address], [place], [address], 06/18/2025 15:19:52 Medication Orders fluticaso ne propionat e 50 mcg/actua tion nasal spray,claude pension 2024 [facility]/Pharmacy #[id number], [address] [place], [address], 06/10/2025 14:20:40 doxycycli ne hyclate 100 mg tablet 2024 [facility]/Pharmacy #[id number], [address] [place], [address], 07/08/2025 05:02:41 Patient TargetsNo targets recorded. Patient InstructionsNo instructions recorded. Reason for Referral None Reported. Results Created Date Observation Date Name Description Value Unit Range Abnormal Flag Note LastModifiedBy Organization Detail LastModifiedTime 06/18/2006/16/2025 CT, sinus es, w/o contr ast No observ ation record ed. ccomi [facility] [address], [place], [address], 06/19/2025 12:40:05 Result Notes None recorded. Problems Name Problem SNOMED Code Status Onset Date Resolution Date Notes Provider Name and Address Organization Details Recorded Time Hypertrop hy of nasal turbinate s 15489598 Active 2017 Hypertrop hy of nasal turbinate s; Note: Date Diagnosed : 10/04/2017 10:09 AM (J34.3) Not Available [facility] 4 02:19:09 Impacted cerumen of bilateral ears 46329497562 37097 Active 2017 Impacted cerumen, bilateral ; Note: Date Diagnosed : 10/04/2017 10:06 AM (H61.23) Not Available [facility] 4 02:19:41 Disorder of smell 615409320 Active 2019 Unspecifi ed disturban miles of smell and taste; Note: Date Diagnosed : 01/29/2020 10:44 AM (R43.9) Not Available [facility] 4 02:18:53 Disorder of taste 626628785 Active 2019 Unspecifi ed disturban miles of smell and taste; Note: Date Diagnosed : 01/29/2020 10:44 AM (R43.9) Not Available [facility] 4 02:18:53 Gastroeso phageal reflux disease without esophagit is 891688525 Active 2019 Gastro-es ophageal reflux disease without esophagit is; Note: Date Diagnosed : 04/25/2016 1:43 PM (K21.9) Not Available [facility] 4 02:19:13 Dysphagia 51852458 Active 2019 Other dysphagia ; Note: Date Diagnosed : 01/29/2020 10:44 AM (R13.19) Not Available [facility] 4 02:19:35 Allergic rhinitis 09527584 Active 2020 Allergic rhinitis, unspecifi ed; Note: Date Diagnosed : 12/08/2020 10:37 AM (J30.9) Not Available [facility] 4 02:19:08 Chronic sinusitis 75291397 Active 2024 Sin Gonzalez DO [address] [facility],[place] [address], [address] , [place] - [facility] 5 12:51:30 Snoring 81688984 Active 2024 Sin Gonzalez DO [address] [facility],[place] [address], [address] , [place] [facility] 5 14:17:01 Finding related to sleep 328464363 Active 2024 Sin Gonzalez DO [address] [facility] [address], [address] , [place] [facility] 5 14:17:08 Chronic rhinitis 67035198 Active 2024 Sin Gonzalez DO [address] [facility] [address], [address] , [place] [facility] 5 14:20:21 Problem Notes None recorded. Procedures Surgical History Date Name Laterality Status Provider Name and Address Organization Details Recorded Time 06/10/2025 Nasal Endo DDx_DHL completed Sin Gonzalez, DO [address] [facility],[place] [address], [place], [address], [facility] - [facility] 06/10/2025 12:51:21 Imaging Results None recorded. Procedure Notes None recorded. Medical Equipment None Reported. Allergies Allergen ID Allergen Name Allergen Category Reaction Reaction Severity Criticality Documentation Date Start Date Code Code System Note Provider Name and Address Organization Details Recorded Time 19174 aspirin medicatio n other Not available Not available 01/16/2024 1191 RxNorm React ion: unkno wn, unspe cifie d;; Not Available [facility] 4 00:53:40 Medications Name Sig Start Date [...] by mouth 06/09 completed Medicati on ID: [id number] D uration Value: 30 Prescri bed By Name: Raffaele stoo, Brand Name: omeprazo le Send Method: E-Prescr [...] Available Not Available No t Available FreeStyle [place] Lite kit DIRECTED active Not Available Not Available No t Available Vitals Date Recorded Body height Body mass index (BMI) Body weight Provider Name and Address Organization Details Last Updated DateTime 06/10/2025 160.02 cm 49.6 kg/m2 202560.86 g Renard Lopez [facility] 06/10/2025 13:47:54 Social History Question Answer Notes LastModified by Organizat ion Details LastModified Time Tobacco Smoking Status Never Smoker Renard richards [facility] 06/10/2025 13:47:24 What Type Of Manufacturing Engineer Paint Do You Use? None Information not available [...] Emphysema N Migraines N Thyroid Problems N COPD N Depression N Developmental Delay N Glaucoma N Nasal or Sinus Problems N Anemia N Immune System Disorder N Anesthesia Complications N Heart Attack ([place]) N Other Skin Condition N Diabetes Y Rhinitis N Bleeding Disorder N Food Allergy Y Hearing Loss N Arthritis Y Hyperlipidemia N Cancer N Stroke N Dementia N Nasal polyps N Asthma N Sleep Disorder N High Cholesterol Y GERD/Reflux Y Liver Disease N Headaches N Fibromyalgia N Hypertension N Speech Delay N Kidney Disease N Gynecological HistoryNo gynecological history recorded. Obstetrics History GPAL:G 0 P 0 0 0 0 Past Encounters Encounter ID Performer Location Encounter Start Date Encounter Closed Date Diagnosis/Indication Diagnosis SNOMED-CT Code Diagnosis ICD10 Code Diagnosis IMO Codes Diagnosis Note [id number] Sin Gonzalez DO [facility] [address] [place] [address] 06/10/2025 13:36:26 06/10/2025 14:23:56 Chronic sinusitis 26764637 J32.8 64856 Snoring 05011692 R06.83 26305 Finding re lated to sleep 892858218 G47.30 826416 Chronic rhinitis 5451176 6 J31.0 Health Concerns Section Related Observation LastModified by Organization Detai ls LastModified Time None Recorded Concern Status LastModified by Organization Details LastModified Time None Recorded Payers Encounter Date Sequence Insurance Name Policy Number Policy Liz Covered Member ID Liz Member ID Guarantor Name 06/10/2025 1 [facility] - HEALTH NET PLAN (MEDICAID HMO) ELVA Damon [id number] Adela Damon Notes Date Note Type Note [...] No Record/Referral Review: N/a Sin Gonzalez DO [address] [place] [address] [address], [place], [address], [facility] - [facility] 06/10/2025 14:23:19 OBGyn Episode No OBEpisode recorded.
--- OUTSIDE RECORDS SUMMARY | 2025-07-11 13:09 | XMS_ITS | Data Portability ---
Author Organization [place] - [facility], Allergy Address [address] [place] [phone] Care Team Providers Care Parts Control Clerk Name Role Phone CARMELA MORALES Primary Care Provider [phone] Assessment Encounter Date Assessment Date Assessment LastModified [...] polysomno graphy, diagnosti c (PROC) 2024 025 [facility], [address] [facility], [place], [address], 06/24/2025 14:41:17 Surgeries None recorded. Imaging CT, sinuses, w/o contrast - Chronic Sinusitis , Other 2024 025 AND[facility] [place], [address], [place], [address], 06/18/2025 15:19:52 Medication Orders fluticaso ne propionat e 50 mcg/actua tion nasal spray,claude pension 2024 025 [id number], [address] [place], [address], 06/10/2025 14:20:40 doxycycli ne hyclate 100 mg tablet 2024 025 [facility][id number], [address] [place], [address], 07/08/2025 05:02:41 Patient TargetsNo targets recorded. Patient InstructionsNo instructions recorded. Reason for Referral None Reported. Results Created Date Observation Date Name Description Value Unit Range Abnormal Flag Note LastModifiedBy Organization Detail LastModifiedTime 06/18/2006/16/2025 CT, sinus es, w/o contr ast No observ ation record ed. ccomi [facility] [place] [address], [place], [address], 06/19/2025 12:40:05 Result Notes Documentation Provider Name and Address Organization Details Recorded Time Ct, Sinuses, W/o Contrast : Clear CT sinus without evidence of sinusitis. AYANNA richards [place] - [facility] 06/19/2025 12:40:05 Problems Name Problem SNOMED Code Status Onset Date Resolution Date Notes Provider Name and Address Organization Details Recorded Time Hypertrop hy of nasal turbinate s 02793639 Active 2017 Hypertrop hy of nasal turbinate s; Note: Date Diagnosed : 10/04/2017 10:09 AM (J34.3) Not Available [facility] 4 02:19:09 Impacted cerumen of bilateral ears 48412941933 92156 Active 2017 Impacted cerumen, bilateral ; Note: Date Diagnosed : 10/04/2017 10:06 AM (H61.23) Not Available [facility] 4 02:19:41 Disorder of smell 125440503 Active 2019 Unspecifi ed disturban miles of smell and taste; Note: Date Diagnosed : 01/29/2020 10:44 AM (R43.9) Not Available [facility] 4 02:18:53 Disorder of taste 720643852 Active 2019 Unspecifi ed disturban miles of smell and taste; Note: Date Diagnosed : 01/29/2020 10:44 AM (R43.9) Not Available [facility] 4 02:18:53 Gastroeso phageal reflux disease without esophagit is 713623873 Active 2019 Gastro-es ophageal reflux disease without esophagit is; Note: Date Diagnosed : 04/25/2016 1:43 PM (K21.9) Not Available [facility] 4 02:19:13 Dysphagia 28651501 Active 2019 Other dysphagia ; Note: Date Diagnosed : 01/29/2020 10:44 AM (R13.19) Not Available [facility] 4 02:19:35 Allergic rhinitis 43581966 Active 2020 Allergic rhinitis, unspecifi ed; Note: Date Diagnosed : 12/08/2020 10:37 AM (J30.9) Not Available [facility] 4 02:19:08 Chronic sinusitis 99392988 Active 2024 Sin Gonzalez DO [address] [address], [place], [address] , [place] - [facility] 5 12:51:30 Snoring 03406404 Active 2024 Sin Gonzalez DO [address] [address], [place], [address] , [place] - [facility] 5 14:17:01 Finding related to sleep 432876670 Active 2024 Sin Gonzalez DO [address] [place] [address], [place], [address] , [place] - [facility] 5 14:17:08 Chronic rhinitis 27081844 Active 2024 Sin Gonzalez DO [address] [address], [place], [address] , [facility] 5 14:20:21 Problem Notes None recorded. Procedures Surgical History Date Name Laterality Status Provider Name and Address Organization Details Recorded Time 06/10/2025 Nasal Endo DDx_DHL completed Sin Gonzalez, DO [address] [address], [place], [address], [facility] 06/10/2025 12:51:21 Imaging Results None recorded. Procedure Notes None recorded. Medical Equipment None Reported. Allergies Allergen ID Allergen Name Allergen Category Reaction Reaction Severity Criticality Documentation Date Start Date Code Code System Note Provider Name and Address Organization Details Recorded Time 86841 aspirin medicatio n other Not available Not available 01/16/2024 1191 RxNorm React ion: unkno wn, unspe cifie d;; Not Available [facility] 4 00:53:40 Medications Name Sig Start Date [...] by mouth 06/09 completed Medicati on ID: [id number] D uration Value: 30 Prescri bed By [...] Available Not Available No t Available FreeStyle Snelling Lite kit DIRECTED active Not Available Not Available No t Available Vitals Date Recorded Body height Body mass index (BMI) Body weight Provider Name and Address Organization Details Last Updated DateTime 06/10/2025 160.02 cm 49.6 kg/m2 393053.86 g Renard Lopez [place] - [facility] 06/10/2025 13:47:54 Social History Question Answer Notes LastModified by Organizat ion Details LastModified Time Tobacco Smoking Status Never Smoker Renard richards [facility] 06/10/2025 13:47:24 What Type Of American Indian Policy Specialist Do You Use? None Information not available [...] Disorder N Anesthesia Complications N Heart Attack ([place]) N Other Skin Condition N Diabetes Y [...] ICD10 Code Diagnosis IMO Codes Diagnosis Note [id number] Sin Gonzalez DO [facility] [address] [place] [address] 06/10/2025 13:36:26 06/10/2025 14:23:56 Chronic sinusitis 42988841 J32.8 29626 Snoring 08566178 R06.83 58131 Finding re lated to sleep 991702415 G47.30 373181 Chronic rhinitis 7056357 6 J31.0 Health Concerns Section Related Observation LastModified by Organization Detai ls LastModified Time None Recorded Concern Status LastModified by Organization Details LastModified Time None Recorded Advance Directives Directive None Recorded Payers Insurance Date Sequence Insurance Name Policy Number Policy Liz Covered Member ID Liz Member ID Guarantor Name 07/07/2025 1 [facility] NET PLAN (MEDICAID HMO) ELVA Damon [id number] Adela Damon Notes Date Note Type Note [...] No Record/Referral Review: N/a Sin Gonzalez DO [address] [place] [address], [phone], [facility] - [facility] 06/10/2025 14:23:19 OBGyn Episode No OBEpisode recorded.
--- OUTSIDE RECORDS SUMMARY | 2025-07-11 13:09 | XMS_ITS | Encounter Summary ---
Author Organization [employer] Address [address] [place] [address] Care Team Providers Care Safe Expert Name Role Phone Unavailable Primary Care Provider Unavailabl e Encounter Details Date Type Department Care Team (Latest Contact Info) Description 07/05/2021 Abstract [facility] CONVERSION[facility] Dental, Provider, DDS [...] Office Visit [facility] [address] [place] [address] Jesus, [place] [address] [place] [address] documented as of this encounter Visit Diagnoses Not on filedocumented in this encounter
== END 2025-07-11 10:58 | disposition home or self-care (01) ==
LOC: HO.LAB 10:57
PROVIDERS: PCP Internal Medicine; Visit Provider Internal Medicine
DX: E11.9 Type 2 diabetes mellitus without complications (principal); E78.5 Hyperlipidemia, unspecified; E55.9 Vitamin D deficiency, unspecified; R80.9 Proteinuria, unspecified
CPT/HCPCS: 36415; 80053; 80061; 82043; 82306; 82570

== ENCOUNTER 2025-07-14 19:23 | Emergency (ER) | payer OTHER, SELFPAY ==
[2025-07-14 19:31] VITALS: BP 127/86; PULSE 87; RESP 16; TEMP 36.5; O2SAT 99; BMI 52.3
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
[2025-07-14 19:51] LABS: MANUAL DIFF FLAG NO
[2025-07-14 19:53] LABS: Hematocrit 49.9 % (37.0-47.0); Hemoglobin 16.2 g/dl (12.0-16.0); Imm Gran Abs Auto 0.04 X10*3/uL (0.00-0.03); Imm Gran Pct Auto 0.4 % (0.0-0.4); Lymphocytes Absolute Auto 3.4 X10*3/uL (1.2-4.9); Mean Corpuscular HGB Conc 32.5 g/dl (31.0-35.0); Mean Corpuscular Hemoglobin 29.1 pg (27.0-33.0); Mean Corpuscular Volume 89.6 fL (80.0-98.0); NRBC Abs Auto 0.000 X10*3/uL (0.0-0.012); NRBC Pct Auto 0.0 /100WBC (0.0-0.2); Platelet Count 272 X10*3/uL (160-400); Red Blood Count 5.57 X10*6/uL (4.20-5.50); White Blood Count 9.7 X10*3/uL (4.8-10.8)
[2025-07-14 20:07] LABS: Alanine Aminotransferase 22 U/L (0-31); Albumin Level 3.9 g/dL (3.5-5.0); Alkaline Phosphatase 141 U/L (39-117); Anion Gap 13 (12-20); Aspartate Amino Transferase 19 U/L (5-31); Blood Urea Nitrogen 16 mg/dL (9-16); Calcium 9.6 mg/dL (8.4-10.2); Carbon Dioxide 29 mmol/L (22-29); Chloride 107 mmol/L (96-108); Creatinine Clr Calc Pharmacy 64.8; Estimated Glomerular Filt Rate 39; Magnesium 2.1 mg/dL (1.6-2.6); Potassium 4.7 mmol/L (3.3-5.1); Sodium 144 mmol/L (135-145); Total Protein 7.4 g/dL (6.5-8.0)
[2025-07-14 20:30] LABS: Resp Syncy Virus RNA Qual PCR NEGATIVE (Negative); SARS COV2 PCR INHOUSE NEGATIVE (Negative)
--- OUTSIDE RECORDS SUMMARY | 2025-07-14 21:10 | XMS_ITS | Continuity of Care Document ---
Author Organization [place] - [facility], [facility] Address [address] [place] [address] Care Team Providers Care Regulatory Compliance Director Name Role Phone CARMELA MORALES Primary Care [...] (PROC) 2024 025 [facility], [address] [place], [address], 06/24/2025 14:41:17 Surgeries None recorded. Imaging CT, sinuses, w/o contrast - Chronic Sinusitis , Other 10/2024 ANDREW [facility] [place], [address], [address], [place], [address], 06/18/2025 15:19:52 Medication Orders fluticaso ne propionat e 50 mcg/actua tion nasal spray,claude pension [address] [facility]armacy #[id number], [address] [place], [address], 06/10/2025 14:20:40 doxycycli ne hyclate [address] [facility]/Pharmacy #[id number], [address] [place], [address], 07/08/2025 05:02:41 Patient TargetsNo targets recorded. Patient InstructionsNo instructions recorded. Reason for Referral None Reported. Results Created Date Observation Date Name Description Value Unit Range Abnormal Flag Note LastModifiedBy Organization Detail LastModifiedTime 06/18/2006/16/2025 CT, sinus es, w/o contr ast No observ ation record ed. ccomi [facility] [place] [address], [place], [address], 06/19/2025 12:40:05 Result Notes None recorded. Problems Name Problem SNOMED Code Status Onset Date Resolution Date Notes Provider Name and Address Organization Details Recorded Time Hypertrop hy of nasal turbinate s 14411833 Active 2017 Hypertrop hy of nasal turbinate s; Note: Date Diagnosed : 10/04/2017 10:09 AM (J34.3) Not Available [facility] 4 02:19:09 Impacted cerumen of bilateral ears 20778490581 33968 Active 2017 Impacted cerumen, bilateral ; Note: Date Diagnosed : 10/04/2017 10:06 AM (H61.23) Not Available [facility] 4 02:19:41 Disorder of smell 870391718 Active 2019 Unspecifi ed disturban miles of smell and taste; Note: Date Diagnosed : 01/29/2020 10:44 AM (R43.9) Not Available [facility] 4 02:18:53 Disorder of taste 110151490 Active 2019 Unspecifi ed disturban miles of smell and taste; Note: Date Diagnosed : 01/29/2020 10:44 AM (R43.9) Not Available [facility] 4 02:18:53 Gastroeso phageal reflux disease without esophagit is 798513323 Active 2019 Gastro-es ophageal reflux disease without esophagit is; Note: Date Diagnosed : 04/25/2016 1:43 PM (K21.9) Not Available [facility] 4 02:19:13 Dysphagia 74303637 Active 2019 Other dysphagia ; Note: Date Diagnosed : 01/29/2020 10:44 AM (R13.19) Not Available [facility] 4 02:19:35 Allergic rhinitis 62832749 Active 2020 Allergic rhinitis, unspecifi ed; Note: Date Diagnosed : 12/08/2020 10:37 AM (J30.9) Not Available [facility] 4 02:19:08 Chronic sinusitis 71292793 Active 2024 Sin Gonzalez DO [address] [facility],[place] [address], [address] , [place] - [facility] 5 12:51:30 Snoring 42963738 Active 2024 Sin Gonzalez DO [address] [facility],[place] [address], [address] , [place] [facility] 5 14:17:01 Finding related to sleep 630173595 Active 2024 Sin Gonzalez DO [address] [facility] [address], [address] , [place] [facility] 5 14:17:08 Chronic rhinitis 63503432 Active 2024 Sin Gonzalez DO [address] [facility] [address], [address] , [place] [facility] 5 14:20:21 Problem Notes None recorded. Procedures Surgical History Date Name Laterality Status Provider Name and Address Organization Details Recorded Time 06/10/2025 Nasal Endo DDx_DHL completed Sin Gonzalez, DO [address] [facility],[place] [address], [place], [address], [facility] - [facility] 06/10/2025 12:51:21 Imaging Results None recorded. Procedure Notes None recorded. Medical Equipment None Reported. Allergies Allergen ID Allergen Name Allergen Category Reaction Reaction Severity Criticality Documentation Date Start Date Code Code System Note Provider Name and Address Organization Details Recorded Time 93956 aspirin medicatio n other Not available Not available 01/16/2024 1191 RxNorm React ion: unkno wn, unspe cifie d;; Not Available [facility] 4 00:53:40 Medications Name Sig Start Date [...] by mouth 06/09 completed Medicati on ID: [id number] D uration Value: 30 Prescri bed By Name: Raffaele soto, Brand Name: omeprazo le Send Method: E-Prescr [...] Available Not Available No t Available FreeStyle [place] Lite kit DIRECTED active Not Available Not Available No t Available Vitals Date Recorded Body height Body mass index (BMI) Body weight Provider Name and Address Organization Details Last Updated DateTime 06/10/2025 160.02 cm 49.6 kg/m2 574008.86 g Renard Lopez [facility] 06/10/2025 13:47:54 Social History Question Answer Notes LastModified by Organizat ion Details LastModified Time Tobacco Smoking Status Never Smoker Renard richards [facility] 06/10/2025 13:47:24 What Type Of Cementer Machine Do You Use? None Information not available [...] Disorder N Anesthesia Complications N Heart Attack ([place]) N Other Skin Condition N Diabetes Y [...] ICD10 Code Diagnosis IMO Codes Diagnosis Note [id number] Sin Gonzalez DO [facility] [address] [place] [address] 06/10/2025 13:36:26 06/10/2025 14:23:56 Chronic sinusitis 21579280 J32.8 83791 Snoring 65270865 R06.83 98765 Finding re lated to sleep 585803835 G47.30 796456 Chronic rhinitis 7451878 6 J31.0 Health Concerns Section Related Observation LastModified by Organization Detai ls LastModified Time None Recorded Concern Status LastModified by Organization Details LastModified Time None Recorded Payers Encounter Date Sequence Insurance Name Policy Number Policy Liz Covered Member ID Liz Member ID Guarantor Name 06/10/2025 1 [facility] - HEALTH NET PLAN (MEDICAID HMO) ELVA Damon [id number] Adela Damon Notes Date Note Type Note [...] No Record/Referral Review: N/a Sin Gonzalez DO [address] [place] [address] [address], [address], [facility] - [facility] 06/10/2025 14:23:19 OBGyn Episode No OBEpisode recorded.
--- OUTSIDE RECORDS SUMMARY | 2025-07-14 21:10 | XMS_ITS | Data Portability ---
Author Organization [place] - [facility], Allergy Address [address] [facility] [address] [place] [address] Care Team Providers Care Flatbed Company Driver Name Role Phone CARMELA MORALES Primary Care [...] polysomno graphy, diagnosti c (PROC) 2024 025 [email or web address], [address] [facility], [place], [address], 06/24/2025 14:41:17 Surgeries None recorded. Imaging CT, sinuses, w/o contrast - Chronic Sinusitis , Other 2024 025 ANDREW [facility] [place], [address], [address], [place], [address], 06/18/2025 15:19:52 Medication Orders fluticaso ne propionat e 50 mcg/actua tion nasal spray,claude pension 2024 025 [facility]/Pharmacy #[id number], [address] [place], [address], 06/10/2025 14:20:40 doxycycli ne hyclate 100 mg tablet 2024 025 [facility]/Pharmacy #[id number], [address] [place], [address], 07/08/2025 05:02:41 Patient TargetsNo targets recorded. Patient InstructionsNo instructions recorded. Reason for Referral None Reported. Results Created Date Observation Date Name Description Value Unit Range Abnormal Flag Note LastModifiedBy Organization Detail LastModifiedTime 06/18/2006/16/2025 CT, sinus es, w/o contr ast No observ ation record ed. ccomi [facility] [place] [address], [place], [address], 06/19/2025 12:40:05 Result Notes Documentation Provider Name and Address Organization Details Recorded Time Ct, Sinuses, W/o Contrast : Clear CT sinus without evidence of sinusitis. AYANNA richards [place] - [facility] 06/19/2025 12:40:05 Problems Name Problem SNOMED Code Status Onset Date Resolution Date Notes Provider Name and Address Organization Details Recorded Time Hypertrop hy of nasal turbinate s 84067915 Active 2017 Hypertrop hy of nasal turbinate s; Note: Date Diagnosed : 10/04/2017 10:09 AM (J34.3) Not Available [facility] 4 02:19:09 Impacted cerumen of bilateral ears 08389610986 19844 Active 2017 Impacted cerumen, bilateral ; Note: Date Diagnosed : 10/04/2017 10:06 AM (H61.23) Not Available [facility] 4 02:19:41 Disorder of smell 987956665 Active 2019 Unspecifi ed disturban miles of smell and taste; Note: Date Diagnosed : 01/29/2020 10:44 AM (R43.9) Not Available [facility] 4 02:18:53 Disorder of taste 256114870 Active 2019 Unspecifi ed disturban miles of smell and taste; Note: Date Diagnosed : 01/29/2020 10:44 AM (R43.9) Not Available [facility] 4 02:18:53 Gastroeso phageal reflux disease without esophagit is 234650129 Active 2019 Gastro-es ophageal reflux disease without esophagit is; Note: Date Diagnosed : 04/25/2016 1:43 PM (K21.9) Not Available [facility] 4 02:19:13 Dysphagia 74001242 Active 2019 Other dysphagia ; Note: Date Diagnosed : 01/29/2020 10:44 AM (R13.19) Not Available [facility] 4 02:19:35 Allergic rhinitis 93265323 Active 2020 Allergic rhinitis, unspecifi ed; Note: Date Diagnosed : 12/08/2020 10:37 AM (J30.9) Not Available [facility] 4 02:19:08 Chronic sinusitis 08833694 Active 2024 Sin Gonzalez DO [address] [place] [address], [place], [address] , [place] - [facility] 5 12:51:30 Snoring 74807078 Active 2024 Sin Gonzalez DO [address] [facility],[place] [address], [place], [address] , [place] - [facility] 5 14:17:01 Finding related to sleep 983602227 Active 2024 Sin Gonzalez DO [address] [facility],[place] [address], [place], [address] , [place] [facility] 5 14:17:08 Chronic rhinitis 62046642 Active 2024 Sin Gonzalez DO [address] [address], [place], [address] , [facility] 5 14:20:21 Problem Notes None recorded. Procedures Surgical History Date Name Laterality Status Provider Name and Address Organization Details Recorded Time 06/10/2025 Nasal Endo DDx_DHL completed Sin Gonzalez, DO [address] [facility],[place] [address], [place], [address], [facility] 06/10/2025 12:51:21 Imaging Results None recorded. Procedure Notes None recorded. Medical Equipment None Reported. Allergies Allergen ID Allergen Name Allergen Category Reaction Reaction Severity Criticality Documentation Date Start Date Code Code System Note Provider Name and Address Organization Details Recorded Time 72641 aspirin medicatio n other Not available Not available 01/16/2024 1191 RxNorm React ion: unkno wn, unspe cifie d;; Not Available [facility] 4 00:53:40 Medications Name Sig Start Date [...] by mouth 06/09 completed Medicati on ID: [id number] D uration Value: 30 Prescri bed By [...] Available Not Available No t Available FreeStyle [place] Lite kit DIRECTED active Not Available Not Available No t Available Vitals Date Recorded Body height Body mass index (BMI) Body weight Provider Name and Address Organization Details Last Updated DateTime 06/10/2025 160.02 cm 49.6 kg/m2 132728.86 g Renard Lopez [place] - [facility] 06/10/2025 13:47:54 Social History Question Answer Notes LastModified by Organizat ion Details LastModified Time Tobacco Smoking Status Never Smoker Renard richards [facility] 06/10/2025 13:47:24 What Type Of Supervisor Cigarette Making Department Do You Use? None Information not available [...] Disorder N Anesthesia Complications N Heart Attack ([place]) N Other Skin Condition N Diabetes Y [...] ICD10 Code Diagnosis IMO Codes Diagnosis Note [id number] Sin Gonzalez DO [facility] [address] [place] [address] 06/10/2025 13:36:26 06/10/2025 14:23:56 Chronic sinusitis 36521240 J32.8 84678 Snoring 31766793 R06.83 35684 Finding re lated to sleep 011493078 G47.30 302270 Chronic rhinitis 7405519 6 J31.0 Health Concerns Section Related Observation LastModified by Organization Detai ls LastModified Time None Recorded Concern Status LastModified by Organization Details LastModified Time None Recorded Advance Directives Directive None Recorded Payers Insurance Date Sequence Insurance Name Policy Number Policy Liz Covered Member ID Liz Member ID Guarantor Name 07/07/2025 1 [facility] - HEALTH NET PLAN (MEDICAID HMO) ELVA Damon [id number] Adela Damon Notes Date Note Type Note [...] No Record/Referral Review: N/a Sin Gonzalez DO [address] [place] [address], [address], [facility] - [facility] 06/10/2025 14:23:19 OBGyn Episode No OBEpisode recorded.
--- OUTSIDE RECORDS SUMMARY | 2025-07-14 21:10 | XMS_ITS | Encounter Summary ---
Author Organization [employer] Address [address] [facility] [address] [place] [address] Care Team Providers Care Report Clerk Name Role Phone Unavailable Primary Care Provider [...] Description 11/13/2025 9:30 AM EDT Office Visit [facility] [address] [place] [address] Jesus, Yanet [address] [place] [address] documented as of this encounter Visit Diagnoses Not on filedocumented in this encounter
--- OUTSIDE RECORDS SUMMARY | 2025-07-14 21:10 | XMS_ITS | Clinical Summary ---
Author Organization [email or web address] Address [address] [facility] [address] [place] [address] Care Team Providers Care Vmware Systems Administrator Name Role Phone Unavailable Primary Care [...] caries 03/08/2023 Dental plaque 02/14/2023 Fractured dental advent with loss of materi al 02/14/2023 Family history of ovarian cancer 11/09/2016 Family history of uterine cancer 11/09/2016 Vitamin D deficiency 05/25/2014 Abnormal LFTs 08/09/2012 Biliary colic 06/18/2012 Constipation 06/14/2012 Disorder of female genital organs 06/14/2012 Dyslipidemia 06/14/2012 History of oophorectomy, unilateral 06/14/2012 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
--- OUTSIDE RECORDS SUMMARY | 2025-07-14 21:10 | XMS_ITS | Encounter Summary ---
Author Organization [employer] Address [address] [facility] [address] [place] [address] Care Team Providers Care Medical Engineer Name Role Phone Unavailable Primary Care Provider Unavailabl e Encounter Details Date Type Department Care Team (Latest Contact Info) Description 07/05/2021 Abstract [facility] CONVERSIONS Dental, Provider, DDS Social History [...] Description 11/13/2025 9:30 AM EDT Office Visit [facility] [address] [place] [address] Jesus, Yanet [address] [place] [address] documented as of this encounter Visit Diagnoses Not on filedocumented in this encounter
[2025-07-14] MEDS: Lactated Ringers 1,000 ML 999 ML IV (22:47)
[2025-07-14 22:50] VITALS: BP 132/85; PULSE 80; RESP 16; TEMP 36.4; O2SAT 97
[2025-07-15 02:04] VITALS: BP 132/85; PULSE 80; RESP 16; TEMP 36.4; O2SAT 97
== END 2025-07-15 02:05 | disposition home or self-care (01) ==
PROVIDERS: Physician Assistant Medical; Emergency Provider Emergency Medicine; PCP Internal Medicine
DX: G43.001 Migraine without aura, not intractable, with status migrainosus (principal); I10 Essential (primary) hypertension; E66.01 Morbid (severe) obesity due to excess calories; Z68.43 Body mass index [BMI] 50.0-59.9, adult; N18.9 Chronic kidney disease, unspecified; E11.9 Type 2 diabetes mellitus without complications; Z79.899 Other long term (current) drug therapy
CPT/HCPCS: 80053; 83735; 85025; 87637; 96361; 96374; 96375; 99284; J0131; J1200; J2765; J7120

== ENCOUNTER 2025-07-21 10:41 | Outpatient (REF) | payer OTHER, SELFPAY ==
[2025-07-21 18:52] LABS: Resp Syncy Virus RNA Qual PCR NEGATIVE (Negative); SARS COV2 PCR INHOUSE NEGATIVE (Negative)
== END 2025-07-21 10:42 | disposition home or self-care (01) ==
LOC: HO.LNP 10:41
PROVIDERS: Family Medicine; PCP Internal Medicine
DX: J06.9 Acute upper respiratory infection, unspecified (principal)
CPT/HCPCS: 87637

== ENCOUNTER 2025-07-21 10:41 | Outpatient (AMB) | payer OTHER, SELFPAY ==
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
[2025-07-21 11:06] VITALS: BP 130/76; PULSE 76; TEMP 36.6; O2SAT 98; BMI 52.1
== END 2025-07-21 12:15 | disposition home or self-care (01) ==
PROVIDERS: PCP Internal Medicine; Visit Provider Family Medicine
DX: J06.9 Acute upper respiratory infection, unspecified (principal)

== ENCOUNTER 2025-08-19 08:56 | Outpatient (AMB) | payer OTHER, SELFPAY ==
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
--- OUTSIDE RECORDS SUMMARY | 2025-08-19 09:57 | XMS_ITS | Encounter Summary ---
Author Organization [employer] Address [address] [facility] [address] [place] [address] Care Team Providers Care Staff Nurse Icu Resource Team Name Role Phone Unavailable Primary Care Provider Unavailabl e Encounter Details Date Type Department Care Team (Latest Contact Info) Description 07/05/2021 Abstract [facility] CONVERSIONS Dental, Provider, DDS [...] Description 11/13/2025 9:30 AM EDT Office Visit [facility] ADULT DENTAL [address] [place] [address] Jesus, Yanet [address] [place] [address] documented as of this encounter Visit Diagnoses Not on filedocumented in this encounter
--- OUTSIDE RECORDS SUMMARY | 2025-08-19 09:57 | XMS_ITS | Clinical Summary ---
Author Organization [employer] Address [address] [facility] [address] [place] [address] Care Team Providers Care Organizational Effectiveness Consultant Name Role Phone Unavailable Primary Care [...] caries 03/08/2023 Dental plaque 02/14/2023 Fractured dental islam with loss of materi al 02/14/2023 Family [...] Description 11/13/2025 9:30 AM EDT Office Visit [facility] ADULT [facility] [address] [place] [address] Jesus, Yanet [address] [place] [address] Health Maintenance Due Date Last Done Comments [...] 05/15/2025 1 1:00 AM EDT Dental plaque BITEWINGS - 4 RADIOGRAPHIC IMAGES Routine 05/15/2025 11:00 AM EDT Hypereruption of tooth Missing teeth, acquired PANORAMIC RADIOGRAPHIC IMAGE Routine 11/17/2023 11:30 AM EDT Acute pulpitis PERIODIC ORAL EVALUATION - ESTABLISHED PATIENT Routine 10/19/2023 11:00 AM EST from Last 3 Months or Most Recently Relevant to Health Maintenance Insurance DENTAL-[facility] MEDICAID STAND ADULT DENTAL-[facility] MEDICAID STAND ADULT
--- OUTSIDE RECORDS SUMMARY | 2025-08-19 09:57 | XMS_ITS | Encounter Summary ---
Author Organization [employer] Address [address] [facility] [address] [place] [address] Care Team Providers Care Coiled Tubing Operator Name Role Phone Unavailable Primary Care Provider Unavailabl e Encounter Details Date Type Department Care Team (Latest Contact Info) Description 09/26/2019 Abstract [facility] CONVERSIONS Dental, Provider, DDS Social [...] Description 11/13/2025 9:30 AM EDT Office Visit [facility] ADULT DENTAL [address] [place] [address] Jesus, Yanet [address] [place] [address] documented as of this encounter Visit Diagnoses Not on filedocumented in this encounter
== END 2025-08-19 09:50 | disposition home or self-care (01) ==
LOC: HO.HOS 08:57
PROVIDERS: PCP Internal Medicine; Visit Provider Physician Assistant
DX: M17.0 Bilateral primary osteoarthritis of knee (principal)
CPT/HCPCS: 20610

== ENCOUNTER → 2025-08-19 08:56 | Outpatient (BNVA) | payer OTHER, SELFPAY | PROVIDERS: PCP Internal Medicine; Visit Provider Physician Assistant | DX: M17.0 Bilateral primary osteoarthritis of knee (principal) | CPT/HCPCS: 20610; J7323 ==

== ENCOUNTER 2025-08-26 08:55 | Outpatient (AMB) | payer OTHER, SELFPAY ==
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
--- OUTSIDE RECORDS SUMMARY | 2025-08-26 09:19 | XMS_ITS | Encounter Summary ---
Author Organization [employer] Address [address] [facility] [address] [place] [address] Care Team Providers Care Solid Glass Rod Dowel Machine Operator Name Role Phone Unavailable Primary Care Provider Unavailabl e Encounter Details Date Type Department Care Team (Latest Contact Info) Description 07/05/2021 Abstract [facility] CONVERSIONS Dental, Provider, DDS Social [...] Description 11/13/2025 9:30 AM EDT Office Visit [facility] ADULT DENTAL [address] [place] [address] Jesus, Yanet [address] [place] [address] documented as of this encounter Visit Diagnoses Not on filedocumented in this encounter
--- OUTSIDE RECORDS SUMMARY | 2025-08-26 09:19 | XMS_ITS | Clinical Summary ---
Author Organization [employer] Address [address] [facility] [address] [place] [address] Care Team Providers Care Nail Mill Worker Name Role Phone Unavailable Primary Care [...] caries 03/08/2023 Dental plaque 02/14/2023 Fractured dental lutheran with loss of materi al 02/14/2023 Family [...] Description 11/13/2025 9:30 AM EDT Office Visit [facility] ADULT D[facility] [address] [place] [address] Jesus, Yanet [address] [place] [address] Health Maintenance Due Date Last Done Comments [...] Most Recently Relevant to Health Maintenance Insurance DENTAL-[facility] MEDICAID STAND ADULT DENTAL-[facility] MEDICAID STAND ADULT
--- OUTSIDE RECORDS SUMMARY | 2025-08-26 09:19 | XMS_ITS | Encounter Summary ---
Author Organization [employer] Address [address] [facility] [address] [place] [address] Care Team Providers Care Bottle Filler Name Role Phone Unavailable Primary Care Provider [...] Description 11/13/2025 9:30 AM EDT Office Visit [facility] ADULT DENT[facility] [address] [place] [address] Jesus, Yanet [address] [place] [address] documented as of this encounter Visit Diagnoses Not on filedocumented in this encounter
== END 2025-08-26 10:00 | disposition home or self-care (01) ==
LOC: HO.HOS 08:56
PROVIDERS: PCP Internal Medicine; Visit Provider Physician Assistant
DX: M17.0 Bilateral primary osteoarthritis of knee (principal)
CPT/HCPCS: 20610

== ENCOUNTER → 2025-08-26 08:55 | Outpatient (BNVA) | payer OTHER, SELFPAY | PROVIDERS: PCP Internal Medicine; Visit Provider Physician Assistant | DX: M17.0 Bilateral primary osteoarthritis of knee (principal) | CPT/HCPCS: 20610; J7323 ==

== ENCOUNTER 2025-09-02 11:26 | Outpatient (AMB) | payer OTHER, SELFPAY ==
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
--- OUTSIDE RECORDS SUMMARY | 2025-09-02 15:27 | XMS_ITS | Encounter Summary ---
Author Organization [employer] Address [address] [facility] [address] [place] [address] Care Team Providers Care Graphics Edit Technician Name Role Phone Unavailable Primary Care Provider Unavailabl e Encounter Details Date Type Department Care Team (Latest Contact Info) Description 07/05/2021 Abstract [facility] CONVERSIONS Dental, Provider, DDS Social History [...] Care Team (Late st Contact Info) Description 09/19/2025 1:30 PM EST Office Visit [facility] ADULT DENTAL [address] [place] [address] Arevalo-Maharaj, Grace, DDS [address] [place] [address] 11/13/2025 9:30 AM EDT Office Visit [facility] ADULT DENT[facility] [address] [place] [address] Jesus, Yanet [address] [place] [address] documented as of this encounter Visit Diagnoses Not on filedocumented in this encounter
--- OUTSIDE RECORDS SUMMARY | 2025-09-02 15:27 | XMS_ITS | Continuity of Care Document ---
Author Organization [place] - [facility], [facility] Address [address] [place] [address] Care Team Providers Care Biologist Name Role Phone CARMELA MORALES Primary Care Provider [phone] Assessment Encounter Date Assessment Date Assessment LastModified [...] Organization Details Last Modified Time Details Appointments Test Results 15 2025 09:30A Mati Gonzalez, DO Not available Not available Not available Lab None recorded. Referral None recorded. Procedures polysomno graphy, diagnosti c (PROC) 2024 025 [facility], [address] [place], [address], 06/24/2025 14:41:17 Surgeries None recorded. Imaging CT, sinuses, w/o contrast - Chronic Sinusitis , Other 10/2024 ANDREW [facility], [address], [address], [place], [address], 06/18/2025 15:19:52 Medication Orders fluticaso ne propionat e 50 mcg/actua tion nasal spray,claude pension 2024 [facility][id number], [address] [place], [address], 06/10/2025 14:20:40 doxycycli ne hyclate 100 mg tablet 2024 [facility] #[id number], [address] [place], [address], 07/08/2025 05:02:41 Patient TargetsNo targets recorded. Patient InstructionsNo instructions recorded. Reason for Referral None Reported. Results Created Date Observation Date Name Description Value Unit Range Abnormal Flag Note LastModifiedBy Organization Detail LastModifiedTime 06/18/2006/16/2025 CT, sinus es, w/o contr ast No observ ation record ed. ccomi [facility] [address], [place], [address], 06/19/2025 12:40:05 Result Notes None recorded. Problems Name Problem SNOMED Code Status Onset Date Resolution Date Notes Provider Name and Address Organization Details Recorded Time Hypertrop hy of nasal turbinate s 66447017 Active 2017 Hypertrop hy of nasal turbinate s; Note: Date Diagnosed : 10/04/2017 10:09 AM (J34.3) Not Available [facility] 4 02:19:09 Impacted cerumen of bilateral ears 70989890867 12415 Active 2017 Impacted cerumen, bilateral ; Note: Date Diagnosed : 10/04/2017 10:06 AM (H61.23) Not Available [facility] 4 02:19:41 Disorder of smell 823640747 Active 2019 Unspecifi ed disturban miles of smell and taste; Note: Date Diagnosed : 01/29/2020 10:44 AM (R43.9) Not Available [facility] 4 02:18:53 Disorder of taste 837849605 Active 2019 Unspecifi ed disturban miles of smell and taste; Note: Date Diagnosed : 01/29/2020 10:44 AM (R43.9) Not Available [facility] 4 02:18:53 Gastroeso phageal reflux disease without esophagit is 738903737 Active 2019 Gastro-es ophageal reflux disease without esophagit is; Note: Date Diagnosed : 04/25/2016 1:43 PM (K21.9) Not Available [facility] 4 02:19:13 Dysphagia 25942909 Active 2019 Other dysphagia ; Note: Date Diagnosed : 01/29/2020 10:44 AM (R13.19) Not Available [facility] 4 02:19:35 Allergic rhinitis 80659224 Active 2020 Allergic rhinitis, unspecifi ed; Note: Date Diagnosed : 12/08/2020 10:37 AM (J30.9) Not Available [facility] 4 02:19:08 Chronic sinusitis 90867157 Active 2024 Sin Gonzalez DO [address] [facility],[place] [address], [address] , [place] [facility] 5 12:51:30 Snoring 94358412 Active 2024 Sin Gonzalez DO [address] [facility] [address], [address] , [place] [facility] 5 14:17:01 Finding related to sleep 747342501 Active 2024 Sin Gonzalez DO [address] [facility] [address], [address] , [place] [facility] 5 14:17:08 Chronic rhinitis 52451877 Active 2024 Sin Gonzalez DO [address] [facility] [address], [address] , [place] [facility] 5 14:20:21 Deviated nasal septum 781430836 Active 2024 Sin Gonzalez, DO [address], [place], [address] , [facility] - [facility] 08:50:27 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 Sin Gonzalez, DO [address] [facility] [address] [address], [place], [address] , [facility] - [facility] 08:50:36 Laryngoph aryngeal reflux 715947226 Active 2024 Sin Gonzalez, DO [address], [facility] [place], [address] , [facility] 10:32:56 Habitual snoring 210179719 Active 2024 Sin Gonzalez, DO [address] [facility] [address] [address], [place], [address] , [facility] 10:36:30 Problem Notes None recorded. Procedures Surgical History Date Name Laterality Status Provider Name and Address Organization Details Recorded Time 06/10/2025 Nasal Endo DDx_DHL completed Sin Gonzalez, DO [address] [facility] [address] [address], [place], [address], [facility] 06/10/2025 12:51:21 Imaging Results None recorded. Procedure Notes None recorded. Medical Equipment None Reported. Allergies Allergen ID Allergen Name Allergen Category Reaction Reaction Severity Criticality Documentation Date Start Date Code Code System Note Provider Name and Address Organization Details Recorded Time 032553 redtop grass pollen extract medicatio n itching Not available Not available 08/07/20252022 00211 0 RxNorm Itchy throa t Not Available [employer] - prod 06:49:22 662488 ascorbic acid / cuprous oxide / lutein / vitamin E / zinc oxide medicatio n Not available Not available Not available 08/07/20252023 89740 00 RxNorm Not Available [employer] - prod 06:49:22 540570 aluminum aspirin Not available Not available Not available Not available 08/07/20252013 611 RxNorm Facia l tory ing Not Available [place] [facility] [employer] - prod 5 06:50:24 28273 aspirin medicatio n other Not available Not available 01/16/2024 1191 RxNorm Renard richards [place] - [facility] 5 10:21:55 Medications Name Sig Start Date Stop Date [...] sumatript an 25 mg tablet TAKE 1 TAB BY MOUTH EVERY 2 TO 4 HOURS NEEDED FOR MIGRAINE FOR 30 DAYS. MAX 8 DOSES PER 24 HOURS active Not Available Not Available No t Available omeprazol e 40 mg capsule,d elayed [...] by mouth 06/09 completed Medicati on ID: [id number] D uration Value: 30 Prescri bed By Name: Raffaele soto MD Brand Name: omeabby [place]ondon Send Method: E-Prescr ibed Sub s Allowed: [...] completed Not Available Not Available Not Available ipratropi um bromide 21 mcg (0.03 %) nasal spray [place] 2 sprays 3 times a day by intranas al route. 2024 active Not Available Not Available Not Avai lable amoxicill in 875 mg-potass ium clavulana te [...] Available Not Available No t Available FreeStyle [place] Lite kit DIRECTED active Not Available Not Available No t Available Vitals Date Recorded Body height Body mass index (BMI) Body weight Provider Name and Address Organization Details Last Updated DateTime 06/10/2025 160.02 cm 49.6 kg/m2 598488.86 g Renard Lopez [place] - [facility] 06/10/2025 13:47:54 Social History Question Answer Notes LastModified by Organizat ion Details LastModified Time Tobacco Smoking Status Never Smoker Renard richards [place] - [facility] 06/10/2025 13:47:24 What Type Of Regulatory Coordinator Do You Use? None Information not available [...] noise exposure are you exposed to? noExposureToExcessiveNoise kevin Infor mation not available 06/10/2025 Mental Status None recorded. Family History Nothing Reported. Medical History Condition Response Allergies/Hayfever N Heart Problems N Anxiety Y Tonsil Infections N Emphysema N Migraines N Thyroid Problems N COPD N Depression N Developmental Delay N Glaucoma N Nasal or Sinus Problems N Anemia N Immune System Disorder N Anesthesia Complications N Heart Attack (AL) N Other Skin Condition N Diabetes Y Rhinitis N Bleeding Disorder N Food Allergy Y Hearing Loss N Arthritis Y Hyperlipidemia N Cancer N Stroke N Dementia N Nasal polyps N Asthma N Sleep Disorder N High Cholesterol Y GERD/Reflux N Liver Disease N Headaches N Fibromyalgia N Hypertension N Speech Delay N Kidney Disease N Gynecological HistoryNo gynecological history recorded. Obstetrics History GPAL:G 0 P 0 0 0 0 Past Encounters Encounter ID Performer Location Encounter Start Date Encounter Closed Date Diagnosis/Indication Diagnosis SNOMED-CT Code Diagnosis ICD10 Code Diagnosis IMO Codes Diagnosis Note [id number] Sin Gonzalez, DO [facility] [address] [place] [address] 06/10/2025 13:36:26 06/10/2025 14:23:56 Chronic sinusitis 78680671 J32.8 38337 Snoring 77757889 R06.83 17634 Finding re lated to sleep 196896042 G47.30 853085 Chronic rhinitis 6453676 6 J31.0 Health Concerns Section Related Observation LastModified by Organization Detai ls LastModified Time None Recorded Concern Status LastModified by Organization Details LastModified Time None Recorded Payers Encounter Date Sequence Insurance Name Policy Number Policy Liz Covered Member ID Liz Member ID Guarantor Name 06/10/2025 1 [facility] PLAN (MEDICAID HMO) ELVA Damon [id number] Adela Damon Notes Date Note Type Note [...] Sinus Surgery: No Record/Referral Review: N/a Sin Gonzalez, DO [address] [facility],[place] [address], [place], [address], [facility] - [facility] 06/10/2025 14:23:19 OBGyn Episode No OBEpisode recorded.
--- OUTSIDE RECORDS SUMMARY | 2025-09-02 15:27 | XMS_ITS | Encounter Summary ---
Author Organization [facility] Address [address] [facility] [address] [place] [address] Care Team Providers Care Incubator Machine Operator Name Role Phone Unavailable Primary Care Provider Unavailabl e Encounter Details Date Type Department Care Team (Latest Contact Info) Description 09/26/2019 Abstract [facility] CONVERSIONS Dental, Provider, DDS Social [...] Description 09/19/2025 1:30 PM EST Office Visit [facility] ADULT [facility] [address] [place] [address] Arevalo-Maharaj, Grace, DDS [address] [place] [address] 11/13/2025 9:30 AM EDT Office Visit [facility]ULT [facility] [address] [place] [address] Jesus, Yanet [address] [place] [address] documented as of this encounter Visit Diagnoses Not on filedocumented in this encounter
--- OUTSIDE RECORDS SUMMARY | 2025-09-02 15:27 | XMS_ITS | Clinical Summary ---
Author Organization [facility] [facility] Address [address] [facility] [address] [place] [address] Care Team Providers Care Safety Instructor Name Role Phone Unavailable Primary Care Provider [...] caries 03/08/2023 Dental plaque 02/14/2023 Fractured dental gnosticist with loss of materi al 02/14/2023 Family [...] Description 09/19/2025 1:30 PM EST Office Visit [facility] ADULT [facility] [address] [place] [address] Grace Flores, DDS [address] [place] [address] 11/13/2025 9:30 AM EDT Office Visit [facility] [address] [place] [address] Yanet Lee [address] [place] [address] Health Maintenance Due Date Last Done Comments [...] COVID-19 Vaccine ( season) 2025 05/04/2021, 04/13/2021 Dental Prophylaxis 11/13/2025 05/15/2025, 1 , 10/19/2023, [...] on patient's age to complete this topic Influenza Vaccine Completed 07/09/2025, , 06/03/2020, Additional history exists HIB Vaccines Aged Out No longer eligi [...] Health Maintenance Insurance [place] STAND ADULT D[facility]AL-[facility] MEDICAID STAND ADULT
--- OUTSIDE RECORDS SUMMARY | 2025-09-02 15:27 | XMS_ITS | Data Portability ---
Author Organization [place] - [facility], Allergy Address [address] [facility] [address] [place] [address] Care Team Providers Care Groundskeeping Maintenance Name Role Phone CARMELA MORALES Primary Care [...] further interventions [email or web address] Not available 06/10/2025 14:22:23 08/07/2025 08/07/2025 49 F [place] citizen speaking, presents today with both history and physical exam suggestive for nasal obstruction and possible chronic sinusitis. She does have a fairly crowded oropharynx, I do have some concern that she has obstructive sleep apnea has been undiagnosed. CT scan from [facility] on 06/16/2025 was personally reviewed and interpreted which showed the following findings. 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 potentially adjust her PPI regimen - RV 3 motnhs, consider flex scope at next visit. [email or web address] Not available 08/07/2025 10:37:47 Plan of Treatment Reminders Order Date Submit Date Provider Last Modified By Organization Details Last Modified Time Details Appointments Test Results 2025 09:30A M Sin Gonzalez, DO Not available Not available Not available Lab None recorded. Referral None recorded. Procedures polysomno graphy, diagnosti c (PROC) 2024 [place] [id number] [facility], [address] [facility], [place], [address], 06/24/2025 14:41:17 Surgeries None recorded. Imaging polysomno gram - patient is [place] citizen speak please have interpret ere 2024 [place] [address] [facility], [address] [facility], [address], [place], [address], 09/01/2025 10:41:26 CT, sinuses, w/o contrast - Chronic Sinusitis , Other 2024 [place] [facility] [place], [address] [facility], [address], [place], [address], 06/18/2025 15:19:52 Medication Orders ipratropi um bromide 21 mcg (0.03 %) nasal spray 2024 [facility]/Pharmacy #[id number], [address] [place], [address], 08/07/2025 10:33:59 fluticaso ne propionat e 50 mcg/actua tion nasal spray,claude pension 2024 [facility]/Pharmacy #[id number], [address], [place], [address], 06/10/2025 14:20:40 doxycycli ne hyclate 100 mg tablet 2024 [facility]/Pharmacy #[id number], [address] [facility], [place], [address], 07/08/2025 05:02:41 Patient TargetsNo targets recorded. Patient InstructionsNo instructions recorded. Reason for Referral None Reported. Results Created Date Observation Date Name Description Value Unit Range Abnormal Flag Note LastModifiedBy Organization Detail LastModifiedTime 06/18/20 25 06/16/2025 CT, sinus es, w/o contr ast No observ ation record ed. ccomi [facility] [place] [address] [facility] [address], [place], [address], 06/19/2025 12:40:05 Result Notes Documentation Provider Name and Address Organization Details Recorded Time Ct, Sinuses, W/o Contrast : Clear CT sinus without evidence of sinusitis. AYANNA richards [place] - [facility] 06/19/2025 12:40:05 Problems Name Problem SNOMED Code Status Onset Date Resolution Date Notes Provider Name and Address Organization Details Recorded Time Hypertrop hy of nasal turbinate s 82103499 Active 2017 Hypertrop hy of nasal turbinate s; Note: Date Diagnosed : 10/04/2017 10:09 AM (J34.3) Not Available [facility] 4 02:19:09 Impacted cerumen of bilateral ears 81987952849 71688 Active 2017 Impacted cerumen, bilateral ; Note: Date Diagnosed : 10/04/2017 10:06 AM (H61.23) Not Available [facility] 4 02:19:41 Disorder of smell 735892766 Active 2019 Unspecifi ed disturban miles of smell and taste; Note: Date Diagnosed : 01/29/2020 10:44 AM (R43.9) Not Available [facility] 4 02:18:53 Disorder of taste 549658928 Active 2019 Unspecifi ed disturban miles of smell and taste; Note: Date Diagnosed : 01/29/2020 10:44 AM (R43.9) Not Available [facility] 4 02:18:53 Gastroeso phageal reflux disease without esophagit is 907807312 Active 2019 Gastro-es ophageal reflux disease without esophagit is; Note: Date Diagnosed : 04/25/2016 1:43 PM (K21.9) Not Available [facility] 4 02:19:13 Dysphagia 94231418 Active 2019 Other dysphagia ; Note: Date Diagnosed : 01/29/2020 10:44 AM (R13.19) Not Available [facility] 4 02:19:35 Allergic rhinitis 45223230 Active 2020 Allergic rhinitis, unspecifi ed; Note: Date Diagnosed : 12/08/2020 10:37 AM (J30.9) Not Available [facility] 4 02:19:08 Chronic sinusitis 29556313 Active 2024 Sin Gonzalez, DO [address], [place], [address] , [place] - [facility] 5 12:51:30 Snoring 85093129 Active 2024 Sin Gonzalez, DO [address], [place], [address] , [place] - [facility] 5 14:17:01 Finding related to sleep 945176562 Active 2024 Sin Gonzalez, DO [address], [place], [address] , [place] - [facility] [place] 5 14:17:08 Chronic rhinitis 78860525 Active 2024 Sin Gonzalez, DO [address], [place], [address] , [place] - [facility] 5 14:20:21 Deviated nasal septum 224527646 Active 2024 Sin Goznalez, DO [address], [place], [address] , [place] - [facility] 5 08:50:27 Yovanny bullosa 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 2024 Sin Gonzalez, DO [address], [place], [address] , [place] - [facility] 5 08:50:36 Laryngoph aryngeal reflux 789708362 Active 2024 Sin Gonzalez, DO [address] [facility],[place] [address], [facility] [place], [address] , [facility] 5 10:32:56 Habitual snoring 236109971 Active 2024 Sin Gonzalez, DO [address] [facility],[place] [address], [place], [address] , [facility] 5 10:36:30 Problem Notes None recorded. Procedures Surgical History Date Name Laterality Status Provider Name and Address Organization Details Recorded Time 06/10/2025 Nasal Endo DDx_DHL completed Sin Gonzalez, [address] [facility],[place] [address], [place], [address], [facility] 06/10/2025 12:51:21 Imaging Results None recorded. Procedure Notes None recorded. Medical Equipment None Reported. Allergies Allergen ID Allergen Name Allergen Category Reaction Reaction Severity Criticality Documentation Date Start Date Code Code System Note Provider Name and Address Organization Details Recorded Time 295669 redtop grass pollen extract medicatio n itching Not available Not available 08/07/20252022 60198 0 RxNorm Itchy throa t Not Available [employer] - prod 06:49:22 145832 ascorbic acid / cuprous oxide / lutein / vitamin E / zinc oxide medicatio n Not available Not available Not available 08/07/20252023 77992 00 RxNorm Not Available [employer] - prod 06:49:22 631730 aluminum aspirin Not available Not available Not available Not available 08/07/20252013 611 RxNorm Facia l swell ing Not Available [employer] 06:50:24 75115 aspirin medicatio n other Not available Not available 01/16/2024 1191 RxNorm Renard richards [place] - [facility] 5 10:21:55 Medications Name Sig Start [...] by mouth 06/09 completed Medicati on ID: [id number] D uration Value: 30 Prescri bed By Name: Raffaele soto MD Brand Name: omeprazo lita Send Method: E-Prescr ibed Sub s Allowed: [...] bromide 21 mcg (0.03 %) nasal spray [place] 2 sprays 3 times a day by [...] Available Not Available No t Available FreeStyle [place] Lite kit DIRECTED active Not Available Not Available No t Available Vitals Date Recorded Body height Body mass index (BMI) Body weight Provider Name and Address Organization Details Last Updated DateTime 06/10/2025 160.02 cm 49.6 kg/m2 794815.86 g Renard Lopez [place] - [facility] 06/10/2025 13:47:54 Date Recorded Body height Body mass index (BMI) Body weight Provider Name and Address Organization Details Last Updated DateTime 08/07/2025 160.02 cm 49.6 kg/m2 410516.86 garrick Lopez [place] - [facility] 08/07/2025 10:22:06 Social History Question Answer Notes LastModified by Organizat ion Details LastModified Time Tobacco Smoking Status Never Smoker Renard richards [place] - [facility] 06/10/2025 13:47:24 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 None Information not available [...] Disorder N Anesthesia Complications N Heart Attack ([place]) N Other Skin Condition N Diabetes Y Rhinitis N Bleeding Disorder N Food Allergy Y Arthritis Y Hearing Loss N Hyperlipidemia N Cancer N Stroke N Dementia N Nasal polyps N Asthma N High Cholesterol Y Sleep Disorder N GERD/Reflux N Liver Disease N Headaches N Fibromyalgia N Hypertension N Speech Delay N Kidney Disease N Gynecological HistoryNo gynecological history recorded. Obstetrics History GPAL:G 0 P 0 0 0 0 Past Encounters Encounter ID Performer Location Encounter Start Date Encounter Closed Date Diagnosis/Indication Diagnosis SNOMED-CT Code Diagnosis ICD10 Code Diagnosis IMO Codes Diagnosis Note [id number] Sin Gonzalez, DO [facility] of [address] [address] 06/10/2025 13:36:26 06/10/2025 14:23:56 Chronic sinusitis 66617664 J32.8 10090 Snoring 34651122 R06.83 48791 Finding re lated to sleep 561205869 G47.30 279053 Chronic rhinitis 3876358 6 J31.0 [id number] Sin Gonzalez DO [facility] [address] [place] [address] 08/07/2025 09:02:52 08/07/2025 10:41:44 Chronic sinusitis 76579665 J32.8 06757 Snoring 26362107 R06.83 95778 Finding re lated to sleep 683558563 G47.30 878644 Chronic rhinitis 2382309 6 J31.0 Deviated nasal septum 12 5295042 J34.2 327271 Yovanny bullosa 165508894 J34.89 5878164 Laryngopha ryngeal reflux 294631290 K21.9 0925279 Habitual snoring 4706619 00 R06.83 8723422219 Health Concerns Section Related Observation LastModified by Organization Detai ls LastModified Time None Recorded Concern Status LastModified by Organization Details LastModified Time None Recorded Advance Directives Directive None Recorded Payers Insurance Date Sequence Insurance Name Policy Number Policy Liz Covered Member ID Liz Member ID Guarantor Name 08/14/2025 1 [facility] NET PLAN (MEDICAID HMO) ELVA Damon [id number] Adela Damon Notes Date Note Type Note [...] No Record/Referral Review: N/a Sin Gonzalez DO [address] [place] [address], [address], [facility] - [facility] 06/10/2025 14:23:19 08/07/2025 text/html ROS as noted in the HPI Faroese speak. The patient presents today with sinus concerns and throat concern . Wakes up nightly gasping or choking on nasal drip. Endorses mildly poor sleep quality. No prior history of sleep apnea. Has a history of obesity. Current Symptoms: Nasal obstruction/congestion , PND, changes to sense of smell,. Hx of Asthma: No. Hx of NSAID/ASA sensitvity or immune deficiency: No Interval history: Was previously given fluticasone, doxycycline and we ordered a CT sinus without contrast. CT done at [facility]. Still with PND and globus sensation. Feels and points to throat Sin Gonzalez, DO [address] [facility] [address], [place], [address], [place] - [facility] 08/07/2025 10:37:51 OBGyn Episode No OBEpisode recorded.
--- OUTSIDE RECORDS SUMMARY | 2025-09-02 15:27 | XMS_ITS | Continuity of Care Document ---
Author Organization [place] - [facility], [facility] Address [address] [place] [address] Care Team Providers Care Librarian School Name Role Phone CARMELA MORALES Primary Care Provider Assessment Encounter Date Assessment Date Assessment LastModified by Organization Details LastModified Time 08/07/2025 08/07/2025 49 F nauruan speaking, presents today with both history and physical exam suggestive for nasal obstruction and possible chronic sinusitis. She does have a fairly crowded oropharynx, I do have some concern that she has obstructive sleep apnea has been undiagnosed. CT scan from [place] on 06/16/2025 was personally reviewed and interpreted which showed the following findings. 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 Referral None recorded. Procedures None recorded. Surgeries None recorded. Imaging polysomno gram - patient is naur[place] speak please have interpret ere 2024 025 [email or web address] [facility], [address] [facility], [address], [place], [address], 09/01/2025 10:41:26 Medication Orders ipratropi um bromide 21 mcg (0.03 %) nasal spray 2024 025 [facility]/Pharmacy #[id number], [address] [facility], [place], [address], 08/07/2025 10:33:59 Patient TargetsNo targets recorded. Patient InstructionsNo instructions recorded. Reason for Referral None Reported. Problems Name Problem SNOMED Code Status Onset Date Resolution Date Notes Provider Name and Address Organization Details Recorded Time Hypertrop hy of nasal turbinate s 50493677 Active 2017 Hypertrop hy of nasal turbinate s; Note: Date Diagnosed : 10/04/2017 10:09 AM (J34.3) Not Available [facility] 4 02:19:09 Impacted cerumen of bilateral ears 22554787663 60377 Active 2017 Impacted cerumen, bilateral ; Note: Date Diagnosed : 10/04/2017 10:06 AM (H61.23) Not Available [facility] 4 02:19:41 Disorder of smell 501555598 Active 2019 Unspecifi ed disturban miles of smell and taste; Note: Date Diagnosed : 01/29/2020 10:44 AM (R43.9) Not Available [facility] 4 02:18:53 Disorder of taste 858565514 Active 2019 Unspecifi ed disturban miles of smell and taste; Note: Date Diagnosed : 01/29/2020 10:44 AM (R43.9) Not Available [facility] 4 02:18:53 Gastroeso phageal reflux disease without esophagit is 103935516 Active 2019 Gastro-es ophageal reflux disease without esophagit is; Note: Date Diagnosed : 04/25/2016 1:43 PM (K21.9) Not Available [facility] 4 02:19:13 Dysphagia 25992333 Active 2019 Other dysphagia ; Note: Date Diagnosed : 01/29/2020 10:44 AM (R13.19) Not Available [facility] 4 02:19:35 Allergic rhinitis 98115498 Active 2020 Allergic rhinitis, unspecifi ed; Note: Date Diagnosed : 12/08/2020 10:37 AM (J30.9) Not Available [facility] 4 02:19:08 Chronic sinusitis 92166598 Active 2024 Sin Gonzalez, DO [address], [place], [address] , [place] - [facility] [place] 5 12:51:30 Snoring 17085606 Active 2024 Sin Gonzalez, DO [address], [place], [address] , [place] - [facility] [place] 5 14:17:01 Finding related to sleep 734334698 Active 2024 Sin Gonzalez DO [address], [place], [address] , [place] - [facility] [place] 5 14:17:08 Chronic rhinitis 46224170 Active 2024 Sin Gonzalez, DO [address], [place], [address] , [place] - [facility] [place] 5 14:20:21 Deviated nasal septum 478010401 Active 2024 Sin Gonzalez, DO [address], [place], [address] , [place] - [facility] [place] 5 08:50:27 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 Procedures Surgical History Date Name Laterality Status Provider Name and Address Organization Details Recorded Time 06/10/2025 Nasal Endo DDx_DHL completed Sin Lisa, [address] [facility],[address] [address] [address], [place], [address], [facility] 06/10/2025 12:51:21 Imaging Results None recorded. Procedure Notes None recorded. Medical Equipment None Reported. Allergies Allergen ID Allergen Name Allergen Category Reaction Reaction Severity Criticality Documentation Date Start Date Code Code System Note Provider Name and Address Organization Details Recorded Time 271023 redtop grass pollen extract medicatio n itching Not available Not available 08/07/20252022 38996 0 RxNorm Itchy throa t Not Available [employer] 06:49:22 386073 ascorbic acid / cuprous oxide / lutein / vitamin E / zinc oxide medicatio n Not available Not available Not available 08/07/20252023 90668 00 RxNorm Not Available [employer] 06:49:22 312338 aluminum aspirin Not available Not available Not available Not available 08/07/20252013 611 RxNorm Facia l swell ing Not Available [employer] [facility] [employer] 5 06:50:24 58202 aspirin medicatio n other Not available Not available 01/16/2024 1191 RxNorm Renard richards [place] [facility] 5 10:21:55 Medications Name Sig Start Date [...] by mouth 06/09 completed Medicati on ID: [id number] D uration Value: 30 Prescri bed By Name: Raffaele soto MD Brand Name: jeffabby [place] Send Method: E-Prescr ibed Sub s [...] bromide 21 mcg (0.03 %) nasal spray [place] 2 sprays 3 times a day by [...] Available Not Available No t Available FreeStyle [place] Lite kit DIRECTED active Not Available Not Available No t Available Vitals Date Recorded Body height Body mass index (BMI) Body weight Provider Name and Address Organization Details Last Updated DateTime 08/07/2025 160.02 cm 49.6 kg/m2 450353.86 g Renard Lopez [place] - [facility] 08/07/2025 10:22:06 Social History Question Answer Notes LastModified by Organizat ion Details LastModified Time Tobacco Smoking Status Never Smoker Renard richards [place] - [facility] 06/10/2025 13:47:24 What Type Of Lump Room Supervisor Do You Use? 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 J34.89 4570575 Laryngopha ryngeal reflux 180199523 K21.9 8532770 Habitual snoring 4310122 00 R06.83 5117645903 Health Concerns Section Related Observation LastModified by Organization Detai ls LastModified Time None Recorded Concern Status LastModified by Organization Details LastModified Time None Recorded Payers Encounter Date Sequence Insurance Name Policy Number Policy Liz Covered Member ID Liz Member ID Guarantor Name 08/07/2025 1 [facility] - HEALTH NET PLAN (MEDICAID HMO) ELVA Damon [id number] Adela Cowanrio Notes Date Note Type Note Provider Name and Address Organization Details Recorded Time 08/07/2025 text/html ROS as noted in the HPI Sami speak. The patient presents today with sinus concerns and throat concern . Wakes up nightly gasping or choking on nasal drip. Endorses mildly poor sleep quality. No prior history of sleep apnea. Has a history of obesity. Current Symptoms: Nasal obstruction/conges tion, PND, changes to sense of smell,. Hx of Asthma: No. Hx of NSAID/ASA sensitvity or immune deficiency: No Interval history: Was previously given fluticasone, doxycycline and we ordered a CT sinus without contrast. [facility]. Still with PND and globus sensation. Feels and points to throat Sin Gonzalez, DO [address] [facility] [address], [place], [address], [place] - [facility] 08/07/2025 10:37:51 OBGyn Episode No OBEpisode recorded.
== END 2025-09-02 11:58 | disposition home or self-care (01) ==
LOC: HO.HOS 11:27
PROVIDERS: PCP Internal Medicine; Visit Provider Physician Assistant
DX: M17.0 Bilateral primary osteoarthritis of knee (principal)
CPT/HCPCS: 20610

== ENCOUNTER → 2025-09-02 11:26 | Outpatient (BNVA) | payer OTHER, SELFPAY | PROVIDERS: PCP Internal Medicine; Visit Provider Physician Assistant | DX: M17.0 Bilateral primary osteoarthritis of knee (principal) | CPT/HCPCS: 20610; J7323 ==

== ENCOUNTER 2025-09-03 15:03 | Emergency (ER) | payer OTHER, SELFPAY ==
--- NOTE | ~2025-09-03 | XR_ITS ---
EXAMINATION: XR FOOT 3 OR MORE VIEWS LEFT HISTORY: swelling s/p hit on table nail COMPARISON: There are no prior studies available for comparison. FINDINGS: Three views of the left foot are submitted. Osseous mineralization is normal. There is no fracture or dislocation. The joint spaces are preserved. The soft tissues are unremarkable. XR/XR foot LT min 3V IMPRESSION: Unremarkable examination of the left foot. Electronically signed by: Raffaele Matamoros MD 09/03/2025 03:46 PM EST
[2025-09-03 15:16] VITALS: BP 135/86; PULSE 113; RESP 18; TEMP 36.3; O2SAT 98; BMI 53.7
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
--- OUTSIDE RECORDS SUMMARY | 2025-09-03 16:40 | XMS_ITS | Encounter Summary ---
Author Organization [employer] Address [address] [facility] [address] [place] [address] Care Team Providers Care Geotechnical Laboratory Technician Name Role Phone Unavailable Primary Care Provider Unavailabl e Encounter Details Date Type Department Care Team (Latest Contact Info) Description 07/05/[address] [facility] CONVERSIONS Dental, Provider, DDS Social History [...] Description 09/19/2025 1:30 PM EST Office Visit [facility] ADULT DENTAL [address] [place] [address] Arevalo-Maharaj, Grace, DDS [address] [place] [address] 11/13/2025 9:30 AM EDT Office Visit [facility] ADULT DENTAL [address] [place] [address] Jesus, Yanet [address] [place] [address] documented as of this encounter Visit Diagnoses Not on filedocumented in this encounter
--- OUTSIDE RECORDS SUMMARY | 2025-09-03 16:40 | XMS_ITS | Encounter Summary ---
Author Organization [employer] Address [address] [facility] [address] [place] [address] Care Team Providers Care Air Battle Manager Name Role Phone Unavailable Primary Care Provider Unavailabl e Encounter Details Date Type Department Care Team (Latest Contact Info) Description 09/26/2019 Abstract [facility] CONVERSIONS Dental, Provider, DDS Social [...] Description 09/19/2025 1:30 PM EST Office Visit [facility] ADULT DENTAL [address] [place] [address] Arevalo-Maharaj, Grace, DDS [address] [place] [address] 11/13/2025 9:30 AM EDT Office Visit [facility] ADULT DENTAL [address] [place] [address] Jesus, Yanet [address] [place] [address] documented as of this encounter Visit Diagnoses Not on filedocumented in this encounter
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
[2025-09-03 16:43] VITALS: BP 135/86; PULSE 113; RESP 18; TEMP 36.3; O2SAT 98
== END 2025-09-03 16:44 | disposition home or self-care (01) ==
LOC: HO.ED 16:37
PROVIDERS: Emergency Provider Student in an Organized Health Care Education/Training Program; PCP Internal Medicine
DX: S90.812A Abrasion, left foot, initial encounter (principal); M79.672 Pain in left foot; Y29.XXXA Contact with blunt object, undetermined intent, initial encounter; Y93.9 Activity, unspecified; Y92.9 Unspecified place or not applicable; Y99.8 Other external cause status
CPT/HCPCS: 73630; 99282; 99283

== ENCOUNTER → 2025-09-03 15:19 | Outpatient (BNV) | payer OTHER, SELFPAY | PROVIDERS: PCP Internal Medicine; Visit Provider Radiology Diagnostic Radiology | DX: R22.42 Localized swelling, mass and lump, left lower limb (principal) | CPT/HCPCS: 73630 ==